=== PATIENT | female | born 1960 | race Caucasian/White ===

== ENCOUNTER 2018-06-06 10:46 | Outpatient (CLI) | payer MEDICARE, MEDICAID, SELFPAY ==
--- NOTE | 2018-06-06 06:00 | DI.REPORT_ITS ---
SYMPTOM/DIAGNOSIS: LUMBAR SPONDYLOSIS C-ARM FLUOROSCOPY: 06/06 Fluoroscopy Time: 21.4sec,11.83mgy C-arm fluoroscopy was utilized by Dr. Mattson. Please see Dr. Mattson's procedure note. Hard copies show epidural injection at what appears to be the L5-S1 level.
[2018-06-06 11:09] VITALS: BP 111/72; PULSE 86; RESP 16; TEMP 36.6; O2SAT 96
[2018-06-06 12:08] VITALS: BP 95/79; PULSE 82; RESP 17; O2SAT 99
[2018-06-06] MEDS: Omnipaque 240 MG/ML 50 ML BTL IJ (12:08)
[2018-06-06] MEDS: methylPREDNISolone ACETATE 40 MG/ML VIAL IJ (12:08)
--- NOTE | 2018-06-06 12:18 | PDOC.PAIN ---
Pain Clinic Procedure Note Patient Problems: Current Active Problems Problem Status Onset Lumbar radiculitis Chronic EPIDURAL STEROID WITH CATHETER INJECTION PROCEDURE NOTE COMMENTS: Patient had previous epidural steroid injection with only transient relief. She has severe stenosis at L4-5 with spondylolisthesis. PAPI SCHILLING has been referred to the [facility] for lumbar epidural steroid injection. Patient was greeted by the nurse who verified patients name and . Patient was then taken to the fluoroscopy suite. Patient was interviewed and the medical record reviewed. There were no medical, pharmacologic, radiographic, or other structural contraindications to attempting fluoroscopically guided lumbar epidural steroid injection. Risks and expected side effects as well as potential benefits of the procedure were reviewed and voiced concerns addressed. The patient consent form was signed and witnessed. Standard time-out procedure was performed. Patient was placed in the prone position on the fluoroscopy table and automated blood pressure cuff and pulse oximeter applied. The skin entry point for entering/approaching the epidural space by a {L5-S1} and marked. Following thorough chlorhexadine preparation of the skin and draping and 1% lidocaine infiltration of the skin entry point and subcutaneous tissues, a 5 inch 17 gauge Touhy needle was placed under fluoroscopic guidance and with loss of resistance technique into the epidural space. Needle tip placement and depth were aided and confirmed by fluoroscopy. There was no paresthesia or return of blood or CSF through the needle. An Arrow cath was thread to the {left and cephalad} and 1 cc's of Omnipaque 240 was injected with clear epidural spread confirmed with fluoroscopy. 80mg depomedrol was injected. There was not any unusual discomfort expressed. Vital signs were stable throughout the procedure and were as recorded in nursing records. Follow up plans and appointments were discussed.Post procedure instruction was given as documented in nursing records and having met discharge criteria and was discharged from the [facility]. COMMENTS: Follow-up as needed. Would only repeat if she has long-lasting relief. I have made a referral for her [place] [facility] [place] well as get flexion and extension x-rays at that time if she is not improving.
--- NOTE | 2018-06-06 12:22 | PDOC.PAIN_ITS ---
Pain Clinic Procedure Note Patient Problems: Current Active Problems Problem Status Onset Lumbar radiculitis Chronic EPIDURAL STEROID WITH CATHETER INJECTION PROCEDURE NOTE COMMENTS: Patient had previous epidural steroid injection with only transient relief. She has severe stenosis at L4-5 with spondylolisthesis. PAPI SCHILLING has been referred to the [facility] for lumbar epidural steroid injection. Patient was greeted by the nurse who verified patients name and . Patient was then taken to the fluoroscopy suite. Patient was interviewed and the medical record reviewed. There were no medical , pharmacologic, radiographic, or other structural contraindications to attempting fluoroscopically guided lumbar epidural steroid injection. Risks and expected side effects as well as potential benefits of the procedure were reviewed and voiced concerns addressed. The patient consent form was signed and witnessed. Standard time-out procedure was performed. Patient was placed in the prone position on the fluoroscopy table and automated blood pressure cuff and pulse oximeter applied. The skin entry point for entering/approaching the epidural space by a {L5-S1} and marked. Following thorough chlorhexadine preparation of the skin and draping and 1% lidocaine infiltration of the skin entry point and subcutaneous tissues, a 5 inch 17 gauge Touhy needle was placed under fluoroscopic guidance and with loss of resistance technique into the epidural space. Needle tip placement and depth were aided and confirmed by fluoroscopy. There was no paresthesia or return of blood or CSF through the needle. An Arrow cath was thread to the {left and cephalad} and 1 cc's of Omnipaque 240 was injected with clear epidural spread confirmed with fluoroscopy. 80mg depomedrol was injected. There was not any unusual discomfort expressed. Vital signs were stable throughout the procedure and were as recorded in nursing records. Follow up plans and appointments were discussed.Post procedure instruction was given as documented in nursing records and having met discharge criteria and was discharged from the [facility]. COMMENTS: Follow-up as needed. Would only repeat if she has long-lasting relief. I have made a referral for her to see Dr. Rowan at [facility] [place] as well as get flexion and extension x-rays at that time if she is not improving.
== END 2018-06-06 10:47 ==
PROVIDERS: PCP Family Medicine; Visit Provider Anesthesiology Pain Medicine
DX: M54.16 Radiculopathy, lumbar region (principal); G89.29 Other chronic pain
CPT/HCPCS: 62323; 72100; J1030; Q9967

== ENCOUNTER 2018-08-28 13:08 | Outpatient (CLI) | payer MEDICARE, MEDICAID, SELFPAY ==
--- NOTE | 2018-08-28 06:00 | DI.RAD_ITS ---
SYMPTOM/DIAGNOSIS: LUMBAR RADICULOPATHY C-ARM: Fluoroscopy Time: 24.6 secomds/11.14mGy Fluoroscopy was utilized by Dr. Mattson during the performance of a lumbar epidural steroid injection. Please refer to the procedure report for complete details.
[2018-08-28 13:16] VITALS: BP 132/78; PULSE 88; RESP 20; TEMP 35.7; O2SAT 97
--- NOTE | 2018-08-28 13:58 | PDOC.PAIN_ITS ---
Pain Clinic Procedure Note Current Active Problems Problem Status Onset Lumbar radiculitis Chronic EPIDURAL STEROID WITH CATHETER INJECTION PROCEDURE NOTE COMMENTS: The patient has severe spinal stenosis at 04?5 is a class of a grade 2 spondylolisthesis. He has had 2 epidural steroid injection given her relief but only for a couple of months. She is seeing Dr. Stephenson at [facility] will her surgery which would involve fusion. She would like to hold off on that if possible. PAPI SCHILLING has been referred to the [facility] for lumbar epidural steroid injection. Patient was greeted by the nurse who verified patients name and . Patient was then taken to the fluoroscopy suite. Patient was interviewed and the medical record reviewed. There were no medical , pharmacologic, radiographic, or other structural contraindications to attempting fluoroscopically guided lumbar epidural steroid injection. Risks and expected side effects as well as potential benefits of the procedure were reviewed and voiced concerns addressed. The patient consent form was signed and witnessed. Standard time-out procedure was performed. Patient was placed in the prone position on the fluoroscopy table and automated blood pressure cuff and pulse oximeter applied. The skin entry point for entering/approaching the epidural space by a {L5-S1} and marked. Following thorough chlorhexadine preparation of the skin and draping and 1% lidocaine infiltration of the skin entry point and subcutaneous tissues, a 5 inch 17 gauge Touhy needle was placed under fluoroscopic guidance and with loss of resistance technique into the epidural space. Needle tip placement and depth were aided and confirmed by fluoroscopy. There was no paresthesia or return of blood or CSF through the needle. An Arrow cath was thread {cephalad} slightly towards L4 and 1 cc's of Omnipaque 240 was injected with clear epidural spread confirmed with fluoroscopy. 80mg depomedrol was injected. There was not any unusual discomfort expressed. Vital signs were stable throughout the procedure and were as recorded in nursing records. Follow up plans and appointments were discussed.Post procedure instruction was given as documented in nursing records and having met discharge criteria and was discharged from the [facility]. COMMENTS: Follow-up as needed. If she does not get long-term suggested that she return to Dr. Stephenson to consider surgery or would consider lumbar medial branch blocks and radiofrequency ablation.
[2018-08-28 14:06] VITALS: BP 126/80; PULSE 87; RESP 19; O2SAT 99
[2018-08-28] MEDS: methylPREDNISolone ACETATE 40 MG/ML VIAL IJ (14:08)
[2018-08-28] MEDS: Omnipaque 240 MG/ML 50 ML BTL IJ (14:08)
== END 2018-08-28 13:28 ==
PROVIDERS: PCP Family Medicine; Visit Provider Anesthesiology Pain Medicine
DX: M54.16 Radiculopathy, lumbar region (principal); G89.29 Other chronic pain
CPT/HCPCS: 62323; 72100; J1030; Q9967

== ENCOUNTER 2018-10-01 15:01 | Outpatient (CLI) | payer MEDICARE, MEDICAID, SELFPAY ==
[2018-10-01 16:43] LABS: TSH (W/Ref FT4) 0.19 uIU/mL (0.358-3.74)
[2018-10-01 17:52] LABS: FREE T4 1.66 ng/dL (0.76-1.46)
== END 2018-10-01 15:21 ==
PROVIDERS: PCP Family Medicine; Visit Provider Family Medicine
DX: I10 Essential (primary) hypertension (principal)
CPT/HCPCS: 36415; 83036; 84439; 84443

== ENCOUNTER 2018-11-29 15:10 | Outpatient (CLI) | payer MEDICARE, MEDICAID, SELFPAY ==
[2018-11-29 16:14] LABS: Bilirubin Negative (Negative); Blood Negative (Negative); Clarity Sl Cloudy; Glucose Negative (Negative); Ketones Trace mg/dL (Negative); Leukocyte Esterase Small (Negative); Nitrite Positive (Negative); Specific Gravity >= 1.030 (1.005-1.025); Urobilinogen 0.2 EU/dL (Up TO 0.2)
[2018-11-29 16:15] LABS: Abs Immature Grans 0.02 k/cumm (0.0-0.09); Absolute Basophil Count 0.03 k/cumm (0.0-0.2); Absolute Eosinophil Count 0.07 k/cumm (0.0-0.7); Basophils % 0.3; Eosinophils % 0.6; HCT 41.6 % (36.0-46.0); HGB 14.3 g/dL (12.0-15.5); Immature Grans % 0.2; Mean Corp. HGB Concentration 34.4 g/dL (32.0-36.0); Mean Corpuscular Hemoglobin 31.6 pg (27.0-33.0); Mean Corpuscular Volume 91.8 fL (80-95); Mean Platelet Volume 8.3 fL (8.0-11.0); Neutrophils % 73.9; Platelet Count 280 x1000/uL (130-400); RBC 4.53 m/cumm (4.00-5.20); RBC Distribution Width 12.5 % (11.7-14.6); White Blood Cell Count 11.56 k/cumm (4.4-10.8)
[2018-11-29 16:21] LABS: Absolute Lymphocyte Count 1.97 k/cumm (1.2-3.4); Absolute Monocyte Count 0.92 k/cumm (0.11-0.7); Absolute Neutrophil Count 8.54 k/cumm (1.2-6.7)
[2018-11-29 16:26] LABS: Bacteria Many HPF (Negative); C & S Indicated? Yes; Casts Negative LPF (Negative); Crystals Negative HPF (Negative); Epithelial Cells Few HPF (Negative); Mucus Negative (Negative); RBC Negative (0-2); WBC 20-50 HPF (0-5)
[2018-11-29 17:10] LABS: ALT 29 U/L (12-78); AST 23 U/L (15-37); Albumin 3.6 g/dL (3.4-5.0); Alkaline Phosphatase 94 U/L (46-116); Anion Gap 9.1 mmol/L (3-11); BUN 24 mg/dL (7-18); Bilirubin, Total 0.3 mg/dL (0.2-1.0); CO2 27.9 mmol/L (21.0-32.0); Calcium 9.5 mg/dL (8.5-10.1); Chloride 103 mmol/L (98-107); Glucose 111 mg/dL (70-100); Magnesium 1.6 mg/dL (1.8-2.4); Potassium 3.9 mmol/L (3.5-5.1); Sodium 140 mmol/L (136-145); TSH (W/Ref FT4) 0.06 uIU/mL (0.358-3.74); Total Protein 7.2 g/dL (6.4-8.2)
[2018-11-29 18:18] LABS: FREE T4 1.76 ng/dL (0.76-1.46)
== END 2018-11-29 15:30 ==
PROVIDERS: PCP Family Medicine; Visit Provider Nurse Practitioner Psychiatric/Mental Health
DX: F32.1 Major depressive disorder, single episode, moderate (principal); Z79.899 Other long term (current) drug therapy
CPT/HCPCS: 36415; 80053; 87077; 81003; 81015; 83735; 84439; 84443; 85025; 87086; 87186

== ENCOUNTER 2018-12-18 12:49 | Outpatient (CLI) | payer MEDICARE, MEDICAID, SELFPAY ==
--- NOTE | 2018-12-18 06:00 | DI.RAD_ITS ---
SYMPTOMS/DIAGNOSIS: LUMBAR SPONDYLOSIS, LUMBAR MEDIAL BRANCH BLOCK PAIN CLINIC: Fluoroscopy Time: 49.6sec Fluoroscopy was utilized by Dr. Hall during the performance of a lumbar medial branch block. Please refer to the procedure report for complete details.
[2018-12-18 13:07] VITALS: BP 115/66; PULSE 77; RESP 22; TEMP 36.6; O2SAT 99
[2018-12-18 13:44] VITALS: BP 133/75; PULSE 66; RESP 16; O2SAT 98
--- NOTE | 2018-12-18 13:45 | PDOC.PAIN ---
Pain Clinic Procedure Note Current Active Problems Problem Status Onset Lumbosacral spondylosis without myelopathy Acute Lumbar/Sacral Medial Branch Blocks PAPI SCHILLING has been referred to the [facility] for lumbar/sacral medial branch blocks. COMMENTS: She was seen in our clinic on 11/29/18 Patient was interviewed and the medical record reviewed. There were no medical, pharmacologic, radiographic or other structural contraindications to attempting fluoroscopically guided local anesthetic lumbar/sacral medial branch blocks. Risks and expected side effects as well as potential benefit of the procedure were reviewed and voiced concerns addressed. The printed consent form was signed and witnessed. Standard time-out procedure was performed. Patient was placed in the prone position on the fluoroscopy table and automated blood pressure cuff and pulse oximeter applied. The skin entry points for approaching the anatomic target points of the segmental medial branches of bilateral L3-L5DR were identified with anfluoroscopy and marked. Following thorough Chlorhexadine preparation of the skin and draping a a 25 gauge 3.5 spinal needle was placed under fluoroscopic guidance down on to the target point for each respective segmental medial branch.Position was confirmed in A/P, oblique and lateral views with 0.25ml of omnipaque 240. At this point 0.5 cc of 0.5% Bupivacaine was injected to each segmental nerve. Vital signs were stable throughout the procedure and were as recorded in the docflowsheet by the nursing staff. Follow up plans and appointments were discussed and was instructed to keep careful note of how the usual pain was modified by these injections. Specifically was asked to keep a pain diary for the next 24 hours using a numeric pain scale of 0-10 and report these results at the follow-up visit. Post procedure instruction was given as documented in the nursing documentation and having met discharge criteria. Patient was discharged from the [facility]. Based on the medial branches blocked today, if the patient has adequate relief and we are able to proceed to radiofrequency ablation, the treatment should result in the denervation of the bilateral L4-L5 and L5-S1 FACET JOINTS}. We would expect to denervate a total of 4 facets during the radiofrequency ablation. COMMENTS: She will call back with her 1-4 hour post-procedure pain scores for her low back. CC: Hemanth Walton DO
[2018-12-18] MEDS: Omnipaque 240 MG/ML 50 ML BTL IJ (13:59)
[2018-12-18] MEDS: Bupivacaine 0.5% Pres-Free 30 ML VIAL IJ (14:00)
== END 2018-12-18 13:09 ==
PROVIDERS: PCP Family Medicine; Visit Provider Preventive Medicine Occupational Medicine
DX: M47.817 Spondylosis without myelopathy or radiculopathy, lumbosacral region (principal)
CPT/HCPCS: 64493; 64494; 72100; Q9967

== ENCOUNTER 2018-12-31 14:47 | Outpatient (REF) | payer MEDICARE, MEDICAID, SELFPAY ==
[2018-12-31 19:49] LABS: TSH (W/Ref FT4) 0.87 uIU/mL (0.358-3.74)
== END 2018-12-31 15:07 ==
LOC: LBN 14:47
PROVIDERS: PCP Family Medicine; Visit Provider Family Medicine
DX: E03.9 Hypothyroidism, unspecified (principal)
CPT/HCPCS: 84443

== ENCOUNTER 2019-01-22 15:22 | Observation (INO) | payer MEDICARE, MEDICAID, SELFPAY ==
[2019-01-22] MEDS: LORazepam 1 MG TAB PO ×2 (15:47→22:05)
[2019-01-22 15:51] LABS: Bilirubin Negative (Negative); Blood Negative (Negative); Clarity Cloudy; Glucose Negative (Negative); Ketones Negative (Negative); Leukocyte Esterase Trace (Negative); Nitrite Positive (Negative); Urobilinogen 0.2 EU/dL (Up TO 0.2)
--- NOTE | 2019-01-22 15:51 | ED.GENADUL_ITS ---
Discharge Plan Disposition Patient Disposition: [facility] IN[facility] Condition: Stable Discharge Details Chief Complaint: PsychEval Clinical Impression: Acute UTI, Anxiety, Feeling suicidal Primary Care Provider: Hemanth Walton ED Provider: Aba Qiu Home Meds and New Rx's Prescriptions: New cephalexin [Keflex] 500 mg capsule 500 mg PO BID Qty: 14 RF: 0 No Action albuterol sulfate [Ventolin HFA] 90 mcg/actuation HFA aerosol inhaler 1 puff IH Q6H PRNRF: 0 diaper,brief,adult,disposable misc .ROUTE .MEDSUPPLY Qty: 32 RF: 12 lisinopril 20 mg tablet 20 mg PO DAILY Qty: 90 RF: 3 cyclobenzaprine 10 MG tablet 10 mg PO BID PRN30 Days Qty: 60 RF: 3 multivitamin [Daily Value] 1 EACH tablet 1 ea PO DAILY RF: 0 coenzyme Q10 200 MG capsule 200 mg PO DAILY RF: 0 montelukast [Singulair] 10 MG tablet 10 mg PO DAILY 90 Days Qty: 90 RF: 3 Blood Glucose Test 1 EACH strip 1 ea Miscellaneous BID 30 Days Qty: 1 RF: 11 blood-glucose meter [Blood Glucose Monitoring] 1 EACH kit 1 ea Miscellaneous BID Qty: 1 RF: 0 lancets 1 EACH misc 1 ea Miscellaneous BID 50 Days Qty: 100 RF: 12 celecoxib 200 mg capsule 200 mg PO DAILY 30 Days Qty: 30 RF: 3 aspirin [Aspir-Low] 81 mg tablet,delayed release (DR/EC) 81 mg PO DAILY 90 Days Qty: 90 RF: 3 omega-3 fatty acids-fish oil 300-1,000 mg capsule 1 cap PO DAILY Qty: 90 RF: 3 levothyroxine [Synthroid] 150 mcg tablet 150 mcg PO DAILY Qty: 90 RF: 3 metformin 500 mg tablet extended release 24 hr 500 mg PO DAILY@1700 90 Days Qty: 90 RF: 6 acetaminophen [Tylenol Extra Strength] 500 mg tablet 500 mg PO Q6H PRN MDD 2000 mg 30 Days Qty: 90 RF: 6 clonazepam [Klonopin] 1 mg Tablet 1 mg PO HS RF: 0 buspirone 30 mg Tablet 30 mg PO BID RF: 0 Viibryd 10 mg Tablet 10 mg PO DAILY RF: 0 Discharge Instructions Instructions: Urinary Tract Infection in Women (ED), Anxiety (ED) Additional Instructions: Please take the antibiotic as directed. Please follow-up immediately with your mental health superintendent container terminal is on an outpatient basis. If you notice any worsening of your symptoms, or any new symptoms such as vomiting, diarrhea, fever, chills, shortness of breath, chest pain, numbness, weakness, or fainting , please return immediately to the emergency department for reevaluation. Please follow up with your primary care provider as soon as possible for reassessment and reevaluation. As always, it was a pleasure participating in your medical care today. Referrals: Hemanth Walton DO [Primary Care Provider] - Medical Decision Making This is a 58-year-old female with a past medical history of anxiety, personality disorder, thyroid disease, diabetes, who presents today for evaluation of anxiety for the last 2 weeks. She feels that her anxiety has been so bad that she has thought about wanting to and end her life. She does not have a specific plan, but does feel notably anxious and states over 4 different ways that she could kill herself. She denies any auditory visual hallucinations. Exam demonstrates no focal abnormalities. We will recruit the assistance of [facility], get observer, perform laboratory workup, as well as a cardiac workup to rule out any acute cardiac process. 6:03 PM Patient's laboratory workup is benign, the patient is medically cleared. [facility] is currently evaluating the patient. She does have evidence of mild UTI but I do not think that that is the cause of her symptomatology. Patient was given Levaquin for her urinary tract infection. 7:16 PM [facility] still believes that the patient does need to be admitted to a mental facility secondary to her anxiety, pressured speech, and multiple suicidal plans. We did contact [facility] again, they state that there are no beds available that he will not be at least until tomorrow at the earliest that she would be admitted. We will admit the patient to the floor for the time being. I discussed the case with Dr. Jolly, he agrees with the assessment and plan. I have extensively reviewed the treatment plan with the patient. I have addressed all patient concerns at this time. I have also discussed the plan with the admitting physician and they agree with the current assessment and plan and have agreed to assume responsibility for the patient. All parties demonstrate verbal understanding and agreement with our assessment and plan at this time. EKG 15: 57 Rate 81, intervals normal, sinus rhythm, no significant ST elevations or depressions, no Q waves, no T wave inversions. COMPARISON: No relevant prior studies available. FINDINGS: Lungs: There is no lobar consolidation or overt CHF Pleural space: Unremarkable. No pleural effusion. No pneumothorax. Heart/Mediastinum: Unremarkable. No cardiomegaly. Bones/joints: Unremarkable. IMPRESSION: No acute findings Dictated and Authenticated by: Liz Banuelos MD. HPI General Date/Time Provider Initiated Documentation: 01/22/19 15:24 . HPI Narrative: This is a 58-year-old female with a past medical history of anxiety, personality disorder, depression, obstructive sleep apnea, thyroid disease hypertension, who presents today for evaluation of an anxiety attack. The patient states that over the last 2 weeks she has become notably more anxious, she feels that she is so anxious that she thinks about dying however at the same time she also says that she does not have a specific plan but at the same time she also states that , to myself, she went to myself, take her 10 of pills, or do other things to kill myself.. Patient does admit to mild shortness of breath but denies any chest pain, arm pain neck pain or shoulder pain. She denies a history of cardiac disease. He does have a history of thyroid disease and takes levothyroxine. She denies any other complaints or other modifying factors. She denies any auditory or visual hallucinations. Related Data Home Medications Medication Instructions Recorded Confirmed cyclobenzaprine 10 mg PO BID PRN 30 Days #60 01/08/18 01/22/19 tab-cap multivitamin [Daily Value] 1 ea PO DAILY 02/14/18 01/22/19 coenzyme Q10 200 mg PO DAILY cap 03/05/18 01/22/19 montelukast [Singulair] 10 mg PO DAILY 90 Days #90 tab-cap 03/05/18 01/22/19 blood sugar diagnostic [Blood #1 box 03/29/18 01/22/19 Glucose Test Strip] blood-glucose meter [Blood Glucose #1 kit 03/29/18 01/22/19 Monitoring] lancets #100 ea 03/29/18 01/22/19 albuterol sulfate HFA 90 1 puff IH Q6H PRN 07/02/18 01/22/19 mcg/actuation aerosol inhaler diaper,brief,adult,disposable #32 each 10/01/18 01/22/19 lisinopril 20 mg tablet 20 mg PO DAILY #90 tab-cap 10/01/18 01/22/19 celecoxib 200 mg capsule 200 mg PO DAILY 30 Days #30 tab-cap 10/30/18 01/22/19 aspirin 81 mg tablet,delayed 81 mg PO DAILY 90 Days #90 tab-cap 11/15/18 release omega-3 fatty acids-fish oil 300 1 cap PO DAILY #90 cap 11/15/18 01/22/19 mg-1,000 mg capsule levothyroxine 150 mcg tablet 150 mcg PO DAILY #90 tab 12/06/18 01/22/19 metformin ER 500 mg 500 mg PO DAILY@1700 90 Days #90 12/17/18 01/22/19 tablet,extended release 24 hr tabcr acetaminophen 500 mg tablet 500 mg PO Q6H PRN 30 Days #90 tab 12/27/18 01/22/19 MDD 2000 mg buspirone 30 mg PO BID 01/15/19 01/22/19 clonazepam [Klonopin] 1 mg PO HS 01/15/19 01/22/19 vilazodone [Viibryd] 10 mg PO DAILY 01/15/19 01/22/19 cephalexin [Keflex] 500 mg PO BID #14 cap 01/22/19 Previous Rx's Medication Instructions Recorded montelukast [Singulair] 10 mg PO DAILY 90 Days #90 tab-cap 03/05/18 blood sugar diagnostic [Blood #1 box 03/29/18 Glucose Test Strip] blood-glucose meter [Blood Glucose #1 kit 03/29/18 Monitoring] lancets #100 ea 03/29/18 diaper,brief,adult,disposable #32 each 10/01/18 lisinopril 20 mg tablet 20 mg PO DAILY #90 tab-cap 10/01/18 celecoxib 200 mg capsule 200 mg PO DAILY 30 Days #30 tab-cap 10/30/18 aspirin 81 mg tablet,delayed 81 mg PO DAILY 90 Days #90 tab-cap 11/15/18 release omega-3 fatty acids-fish oil 300 1 cap PO DAILY #90 cap 11/15/18 mg-1,000 mg capsule levothyroxine 150 mcg tablet 150 mcg PO DAILY #90 tab 12/06/18 metformin ER 500 mg 500 mg PO DAILY@1700 90 Days #90 12/17/18 tablet,extended release 24 hr tabcr acetaminophen 500 mg tablet 500 mg PO Q6H PRN 30 Days #90 tab 12/27/18 MDD 2000 mg cephalexin [Keflex] 500 mg PO BID #14 cap 01/22/19 Allergies Allergy/AdvReac Type Severity Reaction Status Date / Time No Known Allergies Allergy Verified 01/22/19 15:33 Review of Systems Review of Systems All systems reviewed & are unremarkable except as noted in HPI and below PFSH Medical History Lumbar radiculitis (Chronic) Active asthma Anxiety Arthritis Blindness, right eye, normal vision left eye Depression Diabetes mellitus HTN (hypertension) Hypothyroid Multiple personality disorder Obstructive sleep apnea Surgical History Cholecystectomy Tonsillectomy and adenoidectomy eye surgery Social History Smoking/Tobacco Use Status: Never Alcohol Intake: never Details: monthly or less Drug use: Never Substance use type: does not use Do you feel safe at home: No Do you feel safe in your relationship?: Yes Additional Social history: I feel like I'm going to hurt myself Exam Narrative Exam Narrative: 1.Const: Well-nourished, Well-developed, appearing stated age 2.Eyes: PERRL, no conjunctival injection, and symmetrical lids. 3.ENT: Atraumatic external nose and ears. Moist MM. Neck: Symmetric, trachea midline, No thyromegaly. 4.CVS: +S1/S2, No murmurs or gallops. Peripheral pulses 2+ and equal in all extremities. Brisk capillary refill in all extremities. 5.RESP: Unlabored respiratory effort. Clear to auscultation bilaterally. No wheezes rales or rhonchi 6.GI: Soft, Nontender/Nondistended, No hepatosplenomegaly. No guarding or rebound. 7.MSK: Normocephalic/Atraumatic, Extremities w/o deformity or ttp No cyanosis or clubbing, Normal movement of all extremities 8.Skin: Warm, Dry. No rashes or lesions. 9.Neuro: director of strategic programs II-XII grossly intact. Sensation grossly intact, no focal neurologic deficits. 10.Psych: (AAO) x3, notable pressured speech, flight of ideas, and questionable signs of stewart.
[2019-01-22 15:57] LABS: HCO3 (Venous) 29 mmol/L (22-28); O2 Sat (Venous) 65 % (70-80); TCO2 (Venous) 26 mmol/L (22-29); pCO2 (Venous) 45 mm/Hg (34-47); pH (Venous) 7.43 (7.32-7.43); pO2 (Venous) 32 mm/Hg (28-44)
[2019-01-22 15:59] LABS: Abs Immature Grans 0.02 k/cumm (0.0-0.09); Absolute Basophil Count 0.06 k/cumm (0.0-0.2); Absolute Eosinophil Count 0.18 k/cumm (0.0-0.7); Absolute Lymphocyte Count 2.14 k/cumm (1.2-3.4); Absolute Monocyte Count 0.72 k/cumm (0.11-0.7); Absolute Neutrophil Count 7.13 k/cumm (1.2-6.7); Basophils % 0.6; Eosinophils % 1.8; HCT 45.1 % (36.0-46.0); HGB 15.1 g/dL (12.0-15.5); Immature Grans % 0.2; Lymphocytes % 20.9; Mean Corp. HGB Concentration 33.5 g/dL (32.0-36.0); Mean Corpuscular Hemoglobin 31.1 pg (27.0-33.0); Mean Platelet Volume 8.2 fL (8.0-11.0); Neutrophils % 69.5; Platelet Count 291 x1000/uL (130-400); RBC 4.85 m/cumm (4.00-5.20); RBC Distribution Width 13.6 % (11.7-14.6); White Blood Cell Count 10.25 k/cumm (4.4-10.8)
[2019-01-22 16:00] VITALS: BP 142/76; PULSE 84; RESP 20; TEMP 36.9; O2SAT 97
[2019-01-22 16:04] LABS: *AMPHETAMINES SCREEN URINE Negative (Negative); *BARBITURATES SCREEN URINE Negative (Negative); *BENZODIAZEPINES SCREEN URINE Negative (Negative); Cannabinoids THC Negative (Negative); Cocaine Screen,Urine Negative (Negative); METHADONE URINE SCREEN Negative (Negative); OPIATES URINE SCREEN Negative (Negative); Tricyclic Antidepressants Negative (Negative)
--- NOTE | 2019-01-22 16:15 | DI.RAD_ITS ---
SYMPTOM/DIAGNOSIS: SOB PORTABLE AP CHEST: The lungs are well expanded and free of infiltrate. The cardiovascular structures are intact. SUMMARY: No evidence of acute cardiopulmonary disease.
[2019-01-22 16:24] LABS: ALT 32 U/L (12-78); AST 23 U/L (15-37); Albumin 3.8 g/dL (3.4-5.0); Alkaline Phosphatase 98 U/L (46-116); Anion Gap 10.9 mmol/L (3-11); BUN 23 mg/dL (7-18); Bilirubin, Total 0.3 mg/dL (0.2-1.0); CO2 27.1 mmol/L (21.0-32.0); CREATININE 1.01 mg/dL (0.55-1.02); Calcium 9.6 mg/dL (8.5-10.1); Chloride 101 mmol/L (98-107); Glucose 167 mg/dL (70-100); Potassium 4.2 mmol/L (3.5-5.1); Sodium 139 mmol/L (136-145); Total Protein 7.7 g/dL (6.4-8.2); Troponin I < 0.02 ng/mL (0.00-0.06)
[2019-01-22 16:25] LABS: Bacteria Many HPF (Negative); C & S Indicated? Yes
[2019-01-22 16:35] LABS: ETHANOL BLOOD < 3.0 mg/dL (<3)
[2019-01-22 16:39] LABS: Salicylate < 2.8 mg/dL (2.8-20.0)
--- NOTE | 2019-01-22 16:39 | DI.VRAD_ITS ---
EXAM: XR Chest, 1 View EXAM DATE/TIME: 01/22/2019 4:25 PM CLINICAL HISTORY: 58 years old, female; Signs and symptoms; Shortness of breath TECHNIQUE: Imaging protocol: XR of the chest, 1 view. COMPARISON: No relevant prior studies available. FINDINGS: Lungs: There is no lobar consolidation or overt CHF Pleural space: Unremarkable. No pleural effusion. No pneumothorax. Heart/Mediastinum: Unremarkable. No cardiomegaly. Bones/joints: Unremarkable. IMPRESSION: No acute findings Dictated and Authenticated by: Liz Banuelos MD. Ordering:NITIN Troncoso MD
[2019-01-22 16:41] LABS: Acetaminophen < 2 ug/mL (10-30)
[2019-01-22] MEDS: levoFLOXacin 250 MG TAB PO (18:22)
--- NOTE | 2019-01-22 18:32 | PDOC.MHCN ---
Mental Health Crisis Note Presenting Issue How did you arrive at the ED and why did you come: Patient stated that she was brought to the ER today due having feelings of SI. Patient stated that she does not feel safe going home because she is alone and has no one and doesn't want to live, feels very anxious. Precipitating Factors Patient stated that she will walk out into traffic or take all of her medication or stab herself with something if she goes home. Patient stated that she just feels like something bad will happen because she cannot control her anxiety and her coping skills are not working anymore. Patient would like to have placement in a psych hospital to get control of her anxiety so her life is more stabalized. Disposition BEHAVIOR: anxious, cooperative EYE CONTACT: good MOOD: anxious, depressed AFFECT: flat APPETITE: Patient stated poor eating habits lately. SLEEP(trouble falling/staying asleep: Patient stated that she sleeps well through the night, takes medication to do so. Plan This worker spoke with Doctor Qiu about Patient staying at [facility] until a psych bed is identified. [facility] . This worker faxed down packet to the [facility] to be reviewed. Signature Clinician's Name/Title: Mani Montana
--- NOTE | 2019-01-22 19:01 | PDOC.MHCN_ITS ---
Mental Health Crisis Note Presenting Issue How did you arrive at the ED and why did you come: Patient stated that she was brought to the ER today due having feelings of SI. Patient stated that she does not feel safe going home because she is alone and has no one and doesn't want to live, feels very anxious. Precipitating Factors Patient stated that she will walk out into traffic or take all of her medication or stab herself with something if she goes home. Patient stated that she just feels like something bad will happen because she cannot control her anxiety and her coping skills are not working anymore. Patient would like to have placement in a psych hospital to get control of her anxiety so her life is more stabalized. Disposition BEHAVIOR: anxious, cooperative EYE CONTACT: good MOOD: anxious, depressed AFFECT: flat APPETITE: Patient stated poor eating habits lately. SLEEP(trouble falling/staying asleep: Patient stated that she sleeps well through the night, takes medication to do so. Plan This worker spoke with Doctor Qiu about Patient staying at [facility] until a psych bed is identified. [facility] This worker faxed down packet to the retreat to be reviewed. Signature Clinician's Name/Title: Mani Montana
--- NOTE | 2019-01-22 19:05 | PDOC.ERCMPRO ---
- If Service Date Differs Date of service: 01/22/19 Time of Service: 19:05 Care Management Progress Note Jes presents to [facility] this evening with suicidal thoughts. She reports that she does not have a plan, though has thought of stepping out into traffic, and taking pills. Jes reports that she feels alone with her thoughts at home, and this has been a struggle for her. Jes states that she has a brother in [place] and one in [place], she reports that her brother in [place] is her primary support, she has no children or other family. Jes receives supports through [facility] and her MARKETING OFFICER staffing manager is Jeniffer Serna. Jes also sees Joann Cardenas, and Yuliana Wilks through [facility], and states that they are supportive. Jes states to this physician underwriter that she used to have animals and her dog 1.5 years ago, whom she misses. She states that she does not want to be alone at this time. Jes will be admitted to the Med/Surg floor this evening while awaiting bed availability. VOLUNTARY FOR INPATIENT PSYCHIATRIC STABILIZATION. Patient is appropriate in all interactions since arriving at [facility]; Pt has demonstrated appropriate coping and communication skills, has articulated his or her needs and concerns and is fully engaged during staff interactions. Huddle Held. Those in attendance: Lakesha Garrison ([facility]), Sachi (MONUMENT MASON [place]), Mirta (RN), Gerda (BIB). Safety plan has been established with patient, and care team, to adhere to patient goals, identify restrictions based on behavioral status, address nutrition, and determine allowed personal belongings, tools for hygiene and personal care. Determine level of activity including ambulation, level of supervision, visitors, and determine privileges based on behaviors and level of engagement by pt. SAFETY PLAN: 1. Will remain on suicide precautions. In Paper Clothes 2. Will remain in room under direct supervision of one-on-one staff at all times provided by [facility]; WAN, TOM oil recovery unit operator. 3. May have paper cups, plates, finger foods as well as a metal spoon with which to eat meals. [facility] staff will be responsible for accounting of utensils after meals. 4. Follow [facility] Management of the Admitted Behavioral Health Patient policy. 5. Comfort bath system only. 6. May have cellphone. Charging Cord to be kept at nurses station. 7. Visitors- [facility] support personnel 8. Activities: Crayons and paper. TV if available (Jes reports that TV is helpful to her). 9. Bathroom privileges 10. Phone: May have cellphone in room with her to outreach to brother. Charging cord to be at nurses station. 11. Due to VOLUNTARY status, if patient wishes to leave [facility], the [facility] public health outreach worker must be contacted to re-evaluate patient prior to patient exiting the building. PLACEMENT- Per [facility] referral has been faxed to [place] awaiting decision Patient is currently voluntarily at [facility] and seeking inpatient admission when a bed becomes available. [facility] Frontline Sdv Pilot/Navigator/Dds Operator will continue seeking placement. Please contact the Medication Specialist Stone Setter Metal Optical Frames ([phone]) and [facility] Sdv Pilot/Navigator/Dds Operator ([phone]) for any needed changes in the Safety Plan. Safety plan has been provided to interdepartmental care team.
--- NOTE | 2019-01-22 19:15 | CMPROGNOTE_ITS ---
- If Service Date Differs Date of service: 01/22/19 Time of Service: 19:05 Care Management Progress Note Jes presents to [facility] this evening with suicidal thoughts. She reports that she does not have a plan, though has thought of stepping out into traffic, and taking pills. Jes reports that she feels alone with her thoughts at home, and this has been a struggle for her. Jes states that she has a brother in [place] and one in [place], she reports that her brother in [place] is her primary support, she has no children or other family. Jes receives supports through [facility] and her EARTHMOVING PLANT OPERATOR client integration manager is Jeniffer Serna. Jes also sees Joann Cardenas, and Yuliana Wilks through [facility], and states that they are supportive. Jes states to this telegraphic typewriter repairer that she used to have animals and her dog 1.5 years ago, whom she misses. She states that she does not want to be alone at this time. Jes will be admitted to the Med/Surg floor this evening while awaiting bed availability. VOLUNTARY FOR INPATIENT PSYCHIATRIC STABILIZATION. Patient is appropriate in all interactions since arriving at [facility]; Pt has demonstrated appropriate coping and communication skills, has articulated his or her needs and concerns and is fully engaged during staff interactions. Huddle Held. Those in attendance: Lakesha Garrison ([facility]), Sachi (LICENSED CLUB MANAGER [place]), Mirta (RN), Gerda (BIB). Safety plan has been established with patient, and care team, to adhere to patient goals, identify restrictions based on behavioral status, address nutrition, and determine allowed personal belongings, tools for hygiene and personal care. Determine level of activity including ambulation, level of supervision, visitors, and determine privileges based on behaviors and level of engagement by pt. SAFETY PLAN: 1. Will remain on suicide precautions. In Paper Clothes 2. Will remain in room under direct supervision of one-on-one staff at all times provided by [employer]; WAN, TOM vegetable vendor. 3. May have paper cups, plates, finger foods as well as a metal spoon with which to eat meals. [facility] staff will be responsible for accounting of utensils after meals. 4. Follow [facility] Management of the Admitted Behavioral Health Patient policy. 5. Comfort bath system only. 6. May have cellphone. Charging Cord to be kept at nurses station. 7. Visitors- [facility] support personnel 8. Activities: Crayons and paper. TV if available (Jes reports that TV is helpful to her). 9. Bathroom privileges 10. Phone: May have cellphone in room with her to outreach to brother. Charging cord to be at nurses station. 11. Due to VOLUNTARY status, if patient wishes to leave [facility], the [facility] gaming cage worker must be contacted to re-evaluate patient prior to patient exiting the building. PLACEMENT- Per [facility] referral has been faxed to [place] awaiting decision Patient is currently voluntarily at [facility] and seeking inpatient admission when a bed becomes available. [facility] Frontline Tower Foreman will continue seeking placement. Please contact the Qa Specialist Drum Builder ([phone]) and [facility] Tower Foreman ([phone]) for any needed changes in the Safety Plan. Safety plan has been provided to interdepartmental care team.
[2019-01-22 20:12] VITALS: BP 122/81; PULSE 86; RESP 18; TEMP 36.7; O2SAT 97
[2019-01-22 20:22] VITALS: BP 122/81; PULSE 86; RESP 18; TEMP 36.7; O2SAT 97
--- NOTE | 2019-01-22 20:22 | HPE_ITS ---
Date of service: 01/22/19 Time of Service: 20:13 Assessment and Plan (1) Anxiety: Current visit: Yes Status: Chronic Anxiety with subsequent suicidal ideation. I suspect that the imminent loss of her therapist is the primary factor here but, as mentioned in HPI, there may be also be a contribution of several medication changes. At any rate we will standby for transfer to psychiatric facility. Patient had good response to Ativan in the emergency room and will use this on a as needed basis for now History of Present Illness Chief Complaint: anxiety Narrative: Patient is a 58-year-old female with his tory of anxiety and personality disorder. She comes to the emergency room tonight with approximately 2 weeks of escalating anxiety, to the point where she is thinking about hurting herself. She was seen in the emergency room, medically cleared. She was seen by mental health and agreed to voluntary psychiatric admission. No beds available so she is admitted here pending definitive disposition.. She does relate several factors that may have a bearing on her anxiety, most notably that her longtime therapist is retiring and leaving the area and she does not have a new therapist lined up. In addition there have been some medication changes recently. She states that it a month ago some on known medication was discontinued and she was started on, I believe, of Viibryd a week or 2 ago. She also repeatedly talks about the of her dog, but this was a year and a half ago. Patient was given dose of Ativan in the emergency room with good effect. There was an incidental finding of pyuria in the emergency room. Patient does allow that she has had some urinary frequency and dysuria. She was given an oral dose of Levaquin. Review of Systems Review of Systems All systems reviewed & are unremarkable except as noted in HPI and below [facility] Medical History Lumbar radiculitis (Chronic) Active asthma Anxiety Arthritis Blindness, right eye, normal vision left eye Depression Diabetes mellitus HTN (hypertension) Hypothyroid Multiple personality disorder Obstructive sleep apnea Surgical History Cholecystectomy Tonsillectomy and adenoidectomy eye surgery Social History Smoking/Tobacco Use Status: Never Alcohol Intake: never Details: monthly or less Drug use: Never Substance use type: does not use Do you feel safe at home: No Do you feel safe in your relationship?: Yes Additional Social history: I feel like I'm going to hurt myself Meds Home Medications Medication Instructions Recorded Confirmed Type cyclobenzaprine 10 mg PO BID PRN 30 Days #60 01/08/18 01/22/19 History tab-cap multivitamin [Daily Value] 1 ea PO DAILY 02/14/18 01/22/19 History coenzyme Q10 200 mg PO DAILY cap 03/05/18 01/22/19 History montelukast [Singulair] 10 mg PO DAILY 90 Days #90 tab-cap 03/05/18 01/22/19 Rx blood sugar diagnostic [Blood #1 box 03/29/18 01/22/19 Rx Glucose Test Strip] blood-glucose meter [Blood Glucose #1 kit 03/29/18 01/22/19 Rx Monitoring] lancets #100 ea 03/29/18 01/22/19 Rx albuterol sulfate HFA 90 1 puff IH Q6H PRN 07/02/18 01/22/19 History mcg/actuation aerosol inhaler diaper,brief,adult,disposable #32 each 10/01/18 01/22/19 Rx lisinopril 20 mg tablet 20 mg PO DAILY #90 tab-cap 10/01/18 01/22/19 Rx celecoxib 200 mg capsule 200 mg PO DAILY 30 Days #30 tab-cap 10/30/18 01/22/19 Rx aspirin 81 mg tablet,delayed 81 mg PO DAILY 90 Days #90 tab-cap 11/15/18 01/22/19 Rx release omega-3 fatty acids-fish oil 300 1 cap PO DAILY #90 cap 11/15/18 01/22/19 Rx mg-1,000 mg capsule levothyroxine 150 mcg tablet 150 mcg PO DAILY #90 tab 12/06/18 01/22/19 Rx metformin ER 500 mg 500 mg PO DAILY@1700 90 Days #90 12/17/18 01/22/19 Rx tablet,extended release 24 hr tabcr acetaminophen 500 mg tablet 500 mg PO Q6H PRN 30 Days #90 tab 12/27/18 01/22/19 Rx MDD 2000 mg buspirone 30 mg PO BID 01/15/19 01/22/19 History clonazepam [Klonopin] 1 mg PO HS 01/15/19 01/22/19 History vilazodone [Viibryd] 10 mg PO DAILY 01/15/19 01/22/19 History cephalexin [Keflex] 500 mg PO BID #14 cap 01/22/19 Rx Allergies Allergy/AdvReac Type Severity Reaction Status Date / Time No Known Allergies Allergy Verified 01/22/19 15:33 Exam Narrative Exam Narrative: Blood pressure 142/76 pulse 84 respirations 20 temp 36.9. Patient is sitting on the side of the bed in no distress. HEENT shows no signs of head trauma. Neck is supple. Lungs clear. Heart regular rate and rhythm without murmurs rubs or gallops. Abdomen soft nontender. Pelvic and rectal exams are deferred. Extremities without edema. Neurological patient is alert and oriented, speech is perhaps slightly pressured but appropriate and lucid. Exam is nonfocal Results Labs : 01/22/19 15:53 01/22/19 15:53 Laboratory Results - last 24 hr 01/22/19 01/22/19 01/22/19 15:42 15:42 15:53 WBC RBC Hgb Hct MCV MCH MCHC RDW Plt Count MPV Immature Gran % Neutrophils % Lymphocytes % Monocytes % Eosinophils % Basophils % Absolute Neutrophils Absolute Lymphocytes Absolute Monocytes Absolute Eosinophils Absolute Basophils VBG pH VBG pCO2 VBG pO2 VBG HCO3 VBG Total CO2 VBG O2 Saturation VBG Base Excess Sodium 139 Potassium 4.2 Chloride 101 Carbon Dioxide 27.1 Anion Gap 10.9 BUN 23 H Creatinine 1.01 Estimated GFR/1.73 m2 56.30 Glucose 167 H Calcium 9.6 Total Bilirubin 0.3 AST 23 ALT 32 Alkaline Phosphatase 98 Troponin I < 0.02 Total Protein 7.7 Albumin 3.8 TSH 1.00 Urine Color Yellow Urine Clarity Cloudy Urine pH 7.0 Ur Specific [place] 1.020 Urine Protein Negative Urine Ketones Negative Urine Blood Negative Urine Nitrite Positive H Urine Bilirubin Negative Urine Urobilinogen 0.2 Ur Leukocyte Esterase Trace H Urine RBC Urine WBC 10-20 Ur Epithelial Cells Not Applicable Urine Crystals Not Applicable Urine Bacteria Many Urine Mucus Not Applicable Ur Culture Indicated? Yes Urine Glucose Negative Salicylates Urine Opiates Screen Negative Urine Methadone Screen Negative Acetaminophen Ur Barbiturates Screen Negative Ur Tricyclics Screen Negative Ur Amphetamines Screen Negative U Benzodiazepines Scrn Negative Urine Cocaine Screen Negative Ur THC Screen Negative Ethyl Alcohol < 3.0 01/22/19 01/22/19 01/22/19 15:53 15:53 15:53 WBC 10.25 RBC 4.85 Hgb 15.1 Hct 45.1 MCV 93.0 MCH 31.1 MCHC 33.5 RDW 13.6 Plt Count 291 MPV 8.2 Immature Gran % 0.2 Neutrophils % 69.5 Lymphocytes % 20.9 Monocytes % 7.0 Eosinophils % 1.8 Basophils % 0.6 Absolute Neutrophils 7.13 H Absolute Lymphocytes 2.14 Absolute Monocytes 0.72 H Absolute Eosinophils 0.18 Absolute Basophils 0.06 VBG pH 7.43 VBG pCO2 45 VBG pO2 32 VBG HCO3 29 H VBG Total CO2 26 VBG O2 Saturation 65 L VBG Base Excess 5.0 H Sodium Potassium Chloride Carbon Dioxide Anion Gap BUN Creatinine Estimated GFR/1.73 m2 Glucose Calcium Total Bilirubin AST ALT Alkaline Phosphatase Troponin I Total Protein Albumin TSH Urine Color Urine Clarity Urine pH Ur Specific [place] Urine Protein Urine Ketones Urine Blood Urine Nitrite Urine Bilirubin Urine Urobilinogen Ur Leukocyte Esterase Urine RBC Urine WBC Ur Epithelial Cells Urine Crystals Urine Bacteria Urine Mucus Ur Culture Indicated? Urine Glucose Salicylates < 2.8 L Urine Opiates Screen Urine Methadone Screen Acetaminophen < 2 L Ur Barbiturates Screen Ur Tricyclics Screen Ur Amphetamines Screen U Benzodiazepines Scrn Urine Cocaine Screen Ur THC Screen Ethyl Alcohol Last Vital Signs Temp 36.9 C 01/22/19 16:00 Pulse 84 01/22/19 16:00 Resp 20 01/22/19 16:00 BP 142/76 H 01/22/19 16:00 Pulse Ox 97 01/22/19 16:00
[2019-01-22] MEDS: busPIRone 15 MG TAB 30 MG PO (22:05)
[2019-01-23] MEDS: Levothyroxine 150 MCG TAB PO (05:57)
[2019-01-23 06:04] VITALS: BP 98/60; PULSE 64; RESP 18; TEMP 36; O2SAT 93
[2019-01-23] MEDS: Celecoxib 200 MG CAP PO (08:37)
[2019-01-23] MEDS: busPIRone 15 MG TAB 30 MG PO (08:37)
[2019-01-23] MEDS: Montelukast 10 MG TAB PO (08:38)
[2019-01-23] MEDS: Lisinopril 20 MG TAB PO (08:38)
[2019-01-23] MEDS: Omega-3 Fatty Acids 1000 MG CAP PO (08:38)
--- NOTE | 2019-01-23 08:47 | NUR.NOTE ---
Nursing Note: 0845: pt reporting that she is having a procedure at the pain clinic next week. RN calls to confirm appt., spoke with US Karissa, who reports pt is scheduled for procedure on January 29 at 1245. pt declines to take ASA this am related to the upcoming procedure.
[2019-01-23] MEDS: Amoxicillin 500/Clav. 125 TAB PO (10:37)
--- NOTE | 2019-01-23 11:49 | PDOC.CMIN ---
- If Service Date Differs Date of service: 01/23/19 Time of Service: 11:49 Care Management Initial Assess REASON FOR HOSPITALIZATION:: Anxiety, Suicidal Ideation PAST MEDICAL HISTORY/PAST SURGICAL HISTORY:: Lumbar radiculitis (Chronic). Active asthma. Anxiety. Arthritis. Blindness, right eye, normal vision left eye. Depression. Diabetes mellitus. HTN (hypertension). Hypothyroid. Multiple personality disorder. Obstructive sleep apnea. Cholecystectomy. Tonsillectomy and adenoidectomy. eye surgery PREVIOUS FUNCTIONAL STATUS/SOCIAL/FAMILY SUPPORTS:: Jes resides alone in [place]. She reports that she has siblings in [place] and [place], and that her brother in [place] is her primary support. Jes at baseline is independent, she does depend on PEDIATRICIAN MANAGING PARTNER for assistance in the community, and they are a support to her per her report. CURRENT FUNCTIONAL STATUS:: Currently Jes is lying in bed this morning, receptive to discussion. ADVANCE DIRECTIVES:: None on file Has patient been provided with information about the portal?: Yes Did the patient sign up for the portal?: No CODE STATUS:: Full Code INSURANCE COVERAGE / FINANCIAL ISSUES:: YOLANDA, BLAKE CURRENT HOME/COMMUNITY SERVICES/EQUIPMENT:: Currently Jes has services through [facility], her PEDIATRICIAN MANAGING PARTNER CM is Ramona, she has Sdaia Cardenas as a prescriber, and Shashank Wilks as a therapist. PRIMARY CARE PHYSICIAN:: Dr. Walton POTENTIAL DISCHARGE NEEDS:: Placement at Psychiatric facility PATIENT/FAMILY EDUCATION NEEDS:: Review DC instructions, any limitations, and ongoing DC planning discussion. Discuss 'Ask Me Three' ANTICIPATED BARRIERS TO DISCHARGE:: None identified at this time. TRANSPORTATION:: Via extract operator PLAN:: Jes will transfer to [facility] today. BIB has contacted [facility] for transportation, and SAIDA Kaplan, is aware of acceptance.
[2019-01-23 11:55] VITALS: BP 129/76; PULSE 80; RESP 16; TEMP 36.3; O2SAT 95
--- NOTE | 2019-01-23 12:07 | W.PM.DS.N ---
Date of service: 01/23/19 Time of Service: 12:10 DS: Diagnosis Discharge Diagnosis (1) Anxiety: Status: Chronic Discharge Plan Disposition Patient Disposition: [facility] Condition: Stable Discharge Details Reason For Visit: ANXIETY AND SUICIDAL Admit Date/Time: 01/22/19 19:18 Admit Provider: Lukasz Jolly Attending Provider: Lukasz Jolly Primary Care Provider: Hemanth Walton Hospital Course Hospital Course: Jes Bello is a 58 year old female with a past medical history significant for anxiety, depression, personality disorder, diabetes, obstructive sleep apnea, hypothyroidism, hypertension, and chronic back pain who presented to the emergency department last night on 01/22/2019 with reports of a 2-week history of increasing anxiety, to the point where she was thinking about harming herself. She was seen in the emergency department and medically cleared. She was found to have a urinary tract infection and antibiotics were initiated with Augmentin. Mental health was consulted, she agreed to a voluntary psychiatric admission. There were no beds available last night, so she was admitted to the [facility] pending transfer to psychiatric facility. She reported that her long-term therapist is retiring and she does not have a replacement therapist lined up. This is is contributing to her increased anxiety. She verbalizes that she has multiple stressors. She shared plans to harm herself with staff members. This morning, she reports feeling more safe now that she is in the hospital, she reports feeling better with more people around. She denies feeling like harming herself in this setting. She received PRN ativan for anxiety with good effect. She had 1:1 patient observation and suicide precautions while she was here at the hospital. Her behavior was appropriate. She is discharged to [facility] for appropriate psychaitric care. Her urine culture is growing pansensitive E-coli. She has medication interactions with fluroquinolones. She will complete a course of antibiotics for UTI. Home Meds and New Rx's Prescriptions: New lorazepam 1 mg Tablet 1 - 2 mg PO Q6H PRN PRNQty: 1 RF: 0 amoxicillin-pot clavulanate 500-125 mg Tablet 1 tab PO BID 3 Days Qty: 6 RF: 0 Continued albuterol sulfate [Ventolin HFA] 90 mcg/actuation HFA aerosol inhaler 1 puff IH Q6H PRNRF: 0 diaper,brief,adult,disposable misc .ROUTE .MEDSUPPLY Qty: 32 RF: 12 lisinopril 20 mg tablet 20 mg PO DAILY Qty: 90 RF: 3 cyclobenzaprine 10 MG tablet 10 mg PO BID PRN30 Days Qty: 60 RF: 3 multivitamin [Daily Value] 1 EACH tablet 1 ea PO DAILY RF: 0 coenzyme Q10 200 MG capsule 200 mg PO DAILY RF: 0 montelukast [Singulair] 10 MG tablet 10 mg PO DAILY 90 Days Qty: 90 RF: 3 Blood Glucose Test 1 EACH strip 1 ea Miscellaneous BID 30 Days Qty: 1 RF: 11 blood-glucose meter [Blood Glucose Monitoring] 1 EACH kit 1 ea Miscellaneous BID Qty: 1 RF: 0 lancets 1 EACH misc 1 ea Miscellaneous BID 50 Days Qty: 100 RF: 12 celecoxib 200 mg capsule 200 mg PO DAILY 30 Days Qty: 30 RF: 3 aspirin [Aspir-Low] 81 mg tablet,delayed release (DR/EC) 81 mg PO DAILY 90 Days Qty: 90 RF: 3 omega-3 fatty acids-fish oil 300-1,000 mg capsule 1 cap PO DAILY Qty: 90 RF: 3 levothyroxine [Synthroid] 150 mcg tablet 150 mcg PO DAILY Qty: 90 RF: 3 metformin 500 mg tablet extended release 24 hr 500 mg PO DAILY@1700 90 Days Qty: 90 RF: 6 acetaminophen [Tylenol Extra Strength] 500 mg tablet 500 mg PO Q6H PRN MDD 2000 mg 30 Days Qty: 90 RF: 6 clonazepam [Klonopin] 1 mg Tablet 1 mg PO HS RF: 0 buspirone 30 mg Tablet 30 mg PO BID RF: 0 Viibryd 10 mg Tablet 10 mg PO DAILY RF: 0 Discharge Instructions Instructions: Urinary Tract Infection in Women (ED), Anxiety (ED) Additional Instructions: Complete course of antibiotics for UTI. Stand Alone Forms: Nursing Discharge Form Referrals: Hemanth Walton DO [Primary Care Provider] - Activity:: Activity as Tolerated Equipment/Supplies:: No Equipment Needed Diet:: Carb Counting Discharge Orders Discharge Orders: Discharge Order (Routine); Ordered 01/23/19 Ordered By: Rosaura Bowen Exam Narrative Exam Narrative: General: 58-year-old female, appears anxious, pacing in room, constantly moving her hands. Alert and oriented x3, pleasant and cooperative. HEENT: Normocephalic, atraumatic, mucous membranes moist, extraocular movements intact. Neck: Supple, no JVD. Cardiovascular: Heart has regular rate and rhythm, no murmur appreciated. Respiratory: Respirations even and unlabored, lung sounds clear to auscultation throughout. Gastrointestinal: Normoactive bowel sounds throughout, abdomen soft, nontender on palpation, nondistended. Extremities: Well perfused, no clubbing, cyanosis or edema. Peripheral pulses palpable. DS: Data Vitals/I&O Vitals and I&O: Vital Signs Temperature 36.3 C L 01/23/19 11:55 Temperature Source Tympanic 01/23/19 11:55 Pulse 80 01/23/19 11:55 Pulse Rhythm Regular 01/23/19 05:52 Respiratory Rate 16 01/23/19 11:55 Respiratory Effort Non-Labored 01/23/19 05:52 Respiratory Depth Normal 01/23/19 05:52 Respiratory Pattern Normal 01/23/19 05:52 Blood Pressure 129/76 01/23/19 11:55 Blood Pressure Position Sitting 01/22/19 16:00 Pulse Oximetry 95 01/23/19 11:55 Oxygen Delivery Method Room Air 01/23/19 11:55 Oxygen Flow Rate 0 01/23/19 11:55 Pain Level 0 01/23/19 11:55 Intake & Output 01/22/19 01/23/19 01/23/19 23:59 11:59 23:59 Intake Total 600 / 600 Balance 600 / 600 Weight 92.3 kg Intake: Oral 600 / 600 Other: Urine Appearance Clear Stool Size Moderate Stool Characteristics Soft Completed studies during hospitalization [Text1]: 01/22/19: PORTABLE AP CHEST: The lungs are well expanded and free of infiltrate. The cardiovascular structures are intact. SUMMARY: No evidence of acute cardiopulmonary disease. Labs on day of discharge: Labs from last 24 hours 01/22/19 01/22/19 01/22/19 15:53 15:53 15:53 WBC 10.25 RBC 4.85 Hgb 15.1 Hct 45.1 MCV 93.0 MCH 31.1 MCHC 33.5 RDW 13.6 Plt Count 291 MPV 8.2 Immature Gran % 0.2 Neutrophils % 69.5 Lymphocytes % 20.9 Monocytes % 7.0 Eosinophils % 1.8 Basophils % 0.6 Absolute Neutrophils 7.13 H Absolute Lymphocytes 2.14 Absolute Monocytes 0.72 H Absolute Eosinophils 0.18 Absolute Basophils 0.06 VBG pH 7.43 VBG pCO2 45 VBG pO2 32 VBG HCO3 29 H VBG Total CO2 26 VBG O2 Saturation 65 L VBG Base Excess 5.0 H Sodium Potassium Chloride Carbon Dioxide Anion Gap BUN Creatinine Estimated GFR/1.73 m2 Glucose Calcium Total Bilirubin AST ALT Alkaline Phosphatase Troponin I Total Protein Albumin TSH Urine Color Urine Clarity Urine pH Ur Specific Neoga Urine Protein Urine Ketones Urine Blood Urine Nitrite Urine Bilirubin Urine Urobilinogen Ur Leukocyte Esterase Urine RBC Urine WBC Ur Epithelial Cells Urine Crystals Urine Bacteria Urine Mucus Ur Culture Indicated? Urine Glucose Salicylates < 2.8 L Urine Opiates Screen Urine Methadone Screen Acetaminophen < 2 L Ur Barbiturates Screen Ur Tricyclics Screen Ur Amphetamines Screen U Benzodiazepines Scrn Urine Cocaine Screen Ur THC Screen Ethyl Alcohol 01/22/19 01/22/19 01/22/19 15:53 15:42 15:42 WBC RBC Hgb Hct MCV MCH MCHC RDW Plt Count MPV Immature Gran % Neutrophils % Lymphocytes % Monocytes % Eosinophils % Basophils % Absolute Neutrophils Absolute Lymphocytes Absolute Monocytes Absolute Eosinophils Absolute Basophils VBG pH VBG pCO2 VBG pO2 VBG HCO3 VBG Total CO2 VBG O2 Saturation VBG Base Excess Sodium 139 Potassium 4.2 Chloride 101 Carbon Dioxide 27.1 Anion Gap 10.9 BUN 23 H Creatinine 1.01 Estimated GFR/1.73 m2 56.30 Glucose 167 H Calcium 9.6 Total Bilirubin 0.3 AST 23 ALT 32 Alkaline Phosphatase 98 Troponin I < 0.02 Total Protein 7.7 Albumin 3.8 TSH 1.00 Urine Color Yellow Urine Clarity Cloudy Urine pH 7.0 Ur Specific [place] 1.020 Urine Protein Negative Urine Ketones Negative Urine Blood Negative Urine Nitrite Positive H Urine Bilirubin Negative Urine Urobilinogen 0.2 Ur Leukocyte Esterase Trace H Urine RBC Urine WBC 10-20 Ur Epithelial Cells Not Applicable Urine Crystals Not Applicable Urine Bacteria Many Urine Mucus Not Applicable Ur Culture Indicated? Yes Urine Glucose Negative Salicylates Urine Opiates Screen Negative Urine Methadone Screen Negative Acetaminophen Ur Barbiturates Screen Negative Ur Tricyclics Screen Negative Ur Amphetamines Screen Negative U Benzodiazepines Scrn Negative Urine Cocaine Screen Negative Ur THC Screen Negative Ethyl Alcohol < 3.0 Preliminary micro results at discharge 01/22/19 15:42 Urine Culture - Preliminary Urine - Reflex from Ua Escherichia coli [facility] Medical History Lumbar radiculitis (Chronic) Active asthma Anxiety Arthritis Blindness, right eye, normal vision left eye Depression Diabetes mellitus HTN (hypertension) Hypothyroid Multiple personality disorder Obstructive sleep apnea Surgical History Cholecystectomy Tonsillectomy and adenoidectomy eye surgery Social History Smoking/Tobacco Use Status: Never Alcohol Intake: never Details: monthly or less Drug use: Never Substance use type: does not use Do you feel safe at home: No Do you feel safe in your relationship?: Yes Additional Social history: I feel like I'm going to hurt myself
--- NOTE | 2019-01-23 12:09 | INITIAL_ITS ---
- If Service Date Differs Date of service: 01/23/19 Time of Service: 11:49 Care Management Initial Assess REASON FOR HOSPITALIZATION:: Anxiety, Suicidal Ideation PAST MEDICAL HISTORY/PAST SURGICAL HISTORY:: Lumbar radiculitis (Chronic). Active asthma. Anxiety. Arthritis. Blindness, right eye, normal vision left eye. Depression. Diabetes mellitus. HTN (hypertension). Hypothyroid. Multiple personality disorder. Obstructive sleep apnea. Cholecystectomy. Tonsillectomy and adenoidectomy. eye surgery PREVIOUS FUNCTIONAL STATUS/SOCIAL/FAMILY SUPPORTS:: Jes resides alone in [place]. She reports that she has siblings in [place] and [place], and that her brother in [place] is her primary support. Jes at baseline is independent, she does depend on [employer] for assistance in the community, and they are a support to her per her report. CURRENT FUNCTIONAL STATUS:: Currently Jes is lying in bed this morning, receptive to discussion. ADVANCE DIRECTIVES:: None on file Has patient been provided with information about the portal?: Yes Did the patient sign up for the portal?: No CODE STATUS:: Full Code INSURANCE COVERAGE / FINANCIAL ISSUES:: YOLANDA, BLAKE CURRENT HOME/COMMUNITY SERVICES/EQUIPMENT:: Currently Jes has services through [facility], her [employer] CM is Ramona, she has Sadia Cardenas as a prescriber, and Shashank Wilks as a therapist. PRIMARY CARE PHYSICIAN:: Dr. Walton POTENTIAL DISCHARGE NEEDS:: Placement at Psychiatric facility PATIENT/FAMILY EDUCATION NEEDS:: Review DC instructions, any limitations, and ongoing DC planning discussion. Discuss 'Ask Me Three' ANTICIPATED BARRIERS TO DISCHARGE:: None identified at this time. TRANSPORTATION:: Via hearing healthcare practitioner PLAN:: Jes will transfer to [facility] today. BIB has contacted [facility] for transportation, and SAIDA Kaplan, is aware of acceptance.
== END 2019-01-23 15:12 | disposition short-term general hospital (02) ==
LOC: ER 19:22 → MS 20:08
PROVIDERS: Admitting Provider General Practice; Emergency Provider Student in an Organized Health Care Education/Training Program; PCP Family Medicine; Visit Provider Internal Medicine
DX: F41.8 Other specified anxiety disorders (principal); R45.851 Suicidal ideations; E11.9 Type 2 diabetes mellitus without complications; Z79.84 Long term (current) use of oral hypoglycemic drugs; E03.9 Hypothyroidism, unspecified; N39.0 Urinary tract infection, site not specified; B96.20 Unspecified Escherichia coli [E. coli] as the cause of diseases classified elsewhere; I10 Essential (primary) hypertension; Z75.1 Person awaiting admission to adequate facility elsewhere
CPT/HCPCS: 36415; 80053; 80307; 82805; 87077; 93005; 99222; 99239; 99285; 71045; 80320; 80329; 81003; 81015; 84443; 84484; 85025; 87086; 87186; 93010; 99217; 99219; G0378

== ENCOUNTER 2019-08-05 15:54 | Outpatient (REF) | payer MEDICARE, MEDICAID, SELFPAY | END 2019-08-05 16:14 | LOC: LBN 15:54 | PROVIDERS: PCP Family Medicine; Visit Provider Family Medicine | DX: J02.9 Acute pharyngitis, unspecified (principal) | CPT/HCPCS: 87070 ==

== ENCOUNTER 2019-08-26 15:08 | Outpatient (REF) | payer MEDICARE, MEDICAID, SELFPAY ==
[2019-08-26 19:11] LABS: TSH (W/Ref FT4) 1.92 uIU/mL (0.36-3.74)
== END 2019-08-26 15:28 ==
LOC: LBO 15:08
PROVIDERS: PCP Family Medicine; Visit Provider Family Medicine
DX: E03.9 Hypothyroidism, unspecified (principal)
CPT/HCPCS: 84443

== ENCOUNTER 2020-11-19 11:39 | Outpatient (CLI) | payer MEDICARE, MEDICAID, SELFPAY ==
--- NOTE | 2020-11-19 11:00 | DI.RAD_ITS ---
EXAM: XR KNEE LT 3V AP,LAT,SHERYL CLINICAL HISTORY: L knee pain. TECHNIQUE: 2D digital imaging was performed. COMPARISON: No exams were available for comparison FINDINGS: There is no evidence fracture or obvious joint effusion. Moderate tricompartmental degenerative phillips ges noted. No osseous lesions. IMPRESSION: DATA REPOSITORY: RADIATION DOSE DELIVERED:
--- NOTE | 2020-11-19 11:00 | DI.RAD_ITS ---
EXAM: XR KNEE RT 3V AP,LAT,SHERYL CLINICAL HISTORY: R knee pain. TECHNIQUE: 2D digital imaging was performed. COMPARISON: CR XR KNEE LT 3V AP,LAT,SHERYL from 11/19/2020 FINDINGS: There is no evidence of fracture. Subtle suggestion of joint effusion. There are tricompartmental d egenerative changes noted-moderate. No osseous lesions. IMPRESSION: DATA REPOSITORY: RADIATION DOSE DELIVERED:
== END 2020-11-19 11:59 ==
PROVIDERS: PCP Family Medicine; Referring Provider Family Medicine; Visit Provider Student in an Organized Health Care Education/Training Program
DX: M25.561 Pain in right knee (principal); M25.562 Pain in left knee; M23.91 Unspecified internal derangement of right knee; M23.92 Unspecified internal derangement of left knee
CPT/HCPCS: 20610; 73562; 99214; J1040

== ENCOUNTER 2021-02-05 02:48 | Outpatient (CLI) | payer MEDICARE, MEDICAID, SELFPAY ==
[2021-02-05 16:00] LABS: Hemoglobin A1C 6.7 % (<5.7)
[2021-02-05 16:40] LABS: ALT 35 U/L (14-59); AST 19 U/L (15-37); Albumin 3.8 g/dL (3.4-5.0); Alkaline Phosphatase 125 U/L (46-116); Anion Gap 8.8 mmol/L (3-11); BUN 21 mg/dL (7-18); Bilirubin, Total 0.5 mg/dL (0.2-1.0); CO2 29.2 mmol/L (21.0-32.0); Calcium 9.6 mg/dL (8.5-10.1); Chloride 102 mmol/L (98-107); Estimated GFR 56.56 (mL/min/1.73m2); FREE T4 1.44 ng/dL (0.76-1.46); Glucose 153 mg/dL (74-106); Potassium 4.2 mmol/L (3.5-5.1); Sodium 140 mmol/L (136-145); TSH 2.13 uIU/mL (0.36-3.74); Total Protein 7.3 g/dL (6.4-8.2)
[2021-02-05 18:00] LABS: Calculated LDL 73 mg/dL (<100); Cholesterol 171 mg/dL (<200); HDL Cholesterol 69 mg/dL (40-60); Triglyceride 146 mg/dL (<150)
== END 2021-02-05 02:49 | disposition home or self-care (01) ==
LOC: LBO 02:48
PROVIDERS: PCP Nurse Practitioner Family; Visit Provider Nurse Practitioner Family
DX: I10 Essential (primary) hypertension (principal); E11.9 Type 2 diabetes mellitus without complications; E03.9 Hypothyroidism, unspecified
CPT/HCPCS: 36415; 80053; 80061; 83036; 84439; 84443

== ENCOUNTER 2021-02-23 14:35 | Outpatient (REF) | payer MEDICARE, MEDICAID, SELFPAY | END 2021-02-23 14:36 | disposition home or self-care (01) | LOC: NCHCN 14:35 | PROVIDERS: PCP Nurse Practitioner Family; Visit Provider Family Medicine | DX: N39.0 Urinary tract infection, site not specified (principal) | CPT/HCPCS: 87077; 87086; 87186 ==

== ENCOUNTER 2021-03-11 16:50 | Outpatient (REF) | payer MEDICARE, MEDICAID, SELFPAY ==
--- NOTE | 2021-03-11 14:45 | PAPFT_PTH ---
PATIENT: Jes Bello LOC: [facility] U#:[id number] AGE/SX: 60/F ROOM: RE03/11/[address]: Erendira Prado : 1960 BED: DIS: 03/11/2021 SPEC #: [id number] RECD: 03/11/21 18:12 STATUS: LUÍS RENilsa #: [id number] TORIN: 03/11/21 14:[address]: Erendira Prado DEPT: [facility] Cytology RECD BY: Jane Hanna ENTERED: 03/11/21 18:13 SP TYPE: PAPFT OTHR DR: Yissel Guerra, ZACK Tissues: 1 - CX/ENDOCX FOR PAP SMEARS Procedures: PAP THIN PREP/UVM Screening HPV DNA PROBE Comments: [id number]
== END 2021-03-11 16:51 | disposition home or self-care (01) ==
LOC: LBN 16:50
PROVIDERS: PCP Nurse Practitioner Family; Visit Provider Obstetrics & Gynecology Gynecology
DX: Z12.4 Encounter for screening for malignant neoplasm of cervix (principal); Z11.51 Encounter for screening for human papillomavirus (HPV)
CPT/HCPCS: 88142; 87624

== ENCOUNTER 2021-03-31 01:39 | Outpatient (CLI) | payer MEDICARE, MEDICAID, SELFPAY ==
--- NOTE | 2021-03-31 08:25 | DI.MAMMO_ITS ---
Exam(s) MAMMO SCREENING EXAM: MAMMO SCREENING MAMMO SCREENING the CLINICAL HISTORY: screening,Z12.39 TECHNIQUE: Mammograms were interpreted according to the usual protocol including computer analysis w [employer] CAD system, tomosynthesis and C-view imaging. COMPARISON: Two thousand nine from FINDINGS: The breasts are composed of mainly fatty density , Breast Density category A. No suspicious masses or suspicious microcalcifications are seen. No skin thickening or abnormal axillary lymph nodes are seen. Skin calcifications are again noted. There has been no significant change from prior exams. IMPRESSION: BI-RADS Category 1, Negative mammogram Yearly screening mammography is recommended. Breast Density - Category A, fatty density. A negative radiographic report should not delay biopsy if a dominant or clinically suspicious mass is present. Up to ten percent of cancers are not identified on mammography. A negative report may reinforce clinical impression. Adenosis and dense breasts may obscure an underlying neoplasm. False positive reports average 6 to 10%. Patient will receive a letter notifying them of these results.
--- NOTE | 2021-03-31 08:30 | DI.US_ITS ---
Exam(s) US PELVIS TRANSVAGINAL EXAM: US PELVIS TRANSVAGINAL CLINICAL HISTORY: pelvic pain, R10.2. TECHNIQUE: Transabdominal and transvaginal pelvic ultrasound was performed using standard protocol. COMPARISON: No exams were available for comparison FINDINGS: KIDNEYS: There is limited visualization of the kidneys. No evidence of hydronephrosis or nephrolithi asis. UTERUS: Position: Anteverted. Size: 6.4 long by 3.7 AP by 4.7 transverse cm Endometrium: 1.2 cm. The endometrium is thickened and heterogeneous. Cystic areas are seen within th e endometrium. No blood flow is detected. Myometrium: Unremarkable. Cervix: In the cervix there is a 0.7 x 0.4 x 0.4 cm isoechoic vascular mass within the canal. OVARIES: The right ovary was not visualized transabdominally or transvaginally. Left: 2.2 x 1 x 1.2 cm Cyst or mass: None. DOPPLER: Color: Symmetric and uniform flow to the left ovary. No hyperemia. Duplex: Normal left ovarian arterial waveform is visualized. CUL-DE-SAC: Free fluid: None. Other: None. IMPRESSION: 1. Normal sonographic appearance of the kidneys. 2. Thickened heterogeneous endometrial stripe at 1.2 cm. Differential considerations include polyp, hyperplasia or neoplasm. 3. 0.7 x 0.4 x 0.4 cm solid vascular endocervical mass. This may represent a polyp. Neoplasm cannot be excluded. 4. The right ovary was not visualized on this examination. The left ovary is unremarkable. DATA REPOSITORY:
== END 2021-03-31 01:59 ==
PROVIDERS: PCP Nurse Practitioner Family; Visit Provider Obstetrics & Gynecology Gynecology
DX: R10.2 Pelvic and perineal pain (principal); R93.89 Abnormal findings on diagnostic imaging of other specified body structures; N88.8 Other specified noninflammatory disorders of cervix uteri
CPT/HCPCS: 77063; 77067; 76830; 76856

== ENCOUNTER 2021-04-12 16:21 | Outpatient (REF) | payer MEDICARE, MEDICAID, SELFPAY ==
--- NOTE | 2021-04-12 16:00 | ENDOMET_PTH ---
PATIENT: Jes Bello LOC: [facility] U#:[id number] AGE/SX: 60/F ROOM: RE04/12/[address]: Celia Douglas DO : 1960 BED: DIS: 04/12/2021 SPEC #: [id number] RECD: 04/12/21 18:01 STATUS: LUÍS REQ #: [id number] TORIN: 04/12/21 16:[address]: Celia Douglas DEPT: Surgical Specimen RECD BY: Jane Hanna ENTERED: 04/12/21 18:02 SP TYPE: Endomet OTHR DR: Yissel Guerra APRN Tissues: 1 - ENDOMETRIUM BX/CURRETTE Procedures: GROSS AND MICRO LEVEL 4 Comments: [id number]
== END 2021-04-12 16:22 | disposition home or self-care (01) ==
LOC: LBN 16:21
PROVIDERS: PCP Nurse Practitioner Family; Visit Provider Obstetrics & Gynecology
DX: N85.01 Benign endometrial hyperplasia (principal)
CPT/HCPCS: 88305

== ENCOUNTER → 2021-05-03 14:12 | Outpatient (BNVA) | payer MEDICARE, MEDICAID, SELFPAY | PROVIDERS: PCP Nurse Practitioner Family; Referring Provider Nurse Practitioner Family; Visit Provider Student in an Organized Health Care Education/Training Program | DX: M23.92 Unspecified internal derangement of left knee (principal); M23.91 Unspecified internal derangement of right knee; M17.11 Unilateral primary osteoarthritis, right knee; M17.12 Unilateral primary osteoarthritis, left knee | CPT/HCPCS: 20610; J7318 ==

== ENCOUNTER 2021-10-25 07:43 | Outpatient (CLI) | payer MEDICARE, MEDICAID, SELFPAY ==
--- NOTE | 2021-10-25 07:30 | DI.US_ITS ---
Exam(s) US PELVIS TRANSVAGINAL EXAM: US PELVIS TRANSVAGINAL CLINICAL HISTORY: Follow-up on thickened endometrial stripe,r93.89 TECHNIQUE: Transabdominal and transvaginal imaging was performed using standard protocol. COMPARISON: US US PELVIS TRANSVAGINAL from 03/31/2021 US US PELVIS TRANSVAGINAL from 03/31/2021 FINDINGS: KIDNEYS: Kidneys are symmetric in size. No evidence of renal calculi. No evidence of hydronephrosis. No renal mass or cyst identified. UTERUS: Anteverted. 7.1 x 3.7 x 4.6 cm Endometrium: Abnormally thickened at 15 millimeters. Multiple cystic spaces and heterogeneous appear ance. Myometrium: Unremarkable. Cervix: 5 x 3 4 x 4 millimeter vascular lesion in the cervical canal, not significantly changed. OVARIES: Right: Cyst or mass: None. Left: Cyst or mass: None. DOPPLER: Color: Symmetric and uniform flow to both ovaries. No hyperemia. CUL-DE-SAC: Free fluid: None. IMPRESSION: 1. Abnormally thickened, heterogeneous endometrium. Apparent cervical polyp is again noted, not sign ificantly changed. 2. Unremarkable bilateral ovaries. DATA REPOSITORY:
--- NOTE | 2021-11-11 13:41 | W.ANESCON ---
General Date of Service Date of Service: 11/11/21 Reason for Consult Requesting Provider: Erendira Prado How Consult Conducted:: Phone Conversation (and chart review) Reason for Consult:: Patient concern related to Anesthetic Plan. Does not want to be asleep. Consult Recommendation after Review:: Discussed common plan for D&Cs with the patient (Propofol bolus and infusion). Patient is not comfortable with this plan. Discussed spinal anesthetic with patient risks and benefits: Patient would like to proceed with spinal. She is concerned about anything that might decrease her cognitive function. I assured her that no medications will be given without her express consent. Patient was informed that even with a short acting agent, most likely her stay will be extended in [facility] until the spinal has worn off. The patient confirmed she undestood and wants to proceed with this plan. Meds Allergies and Home Medications Allergies Allergy/AdvReac Type Severity Reaction Status Date / Time No Known Allergies Allergy Verified 09/08/21 16:09 Home Medication Medication Instructions Recorded Blood Glucose Test #1 box 03/29/18 blood-glucose meter [Blood Glucose #1 kit 03/29/18 Monitoring] lancets #100 ea 03/29/18 albuterol sulfate 90 mcg/actuation 1 puff IH Q6H PRN 07/02/18 aerosol inhaler vilazodone 20 mg tablet 20 mg PO DAILY 08/26/19 quetiapine 25 mg tablet 25 mg PO QHS 11/04/19 temazepam 30 mg capsule 30 mg PO QHS PRN 04/14/20 levothyroxine 150 mcg tablet 150 mcg PO DAILY #90 tab 12/11/20 omega-3 fatty acids-fish oil 300 1 cap PO DAILY #90 cap 12/11/20 mg-1,000 mg capsule celecoxib 200 mg capsule 200 mg PO DAILY PRN #90 tab-cap 01/07/21 montelukast 10 mg tablet 10 mg PO DAILY 90 Days #90 tab-cap 01/07/21 bupropion HCl 150 mg 24 hr tablet, 300 mg PO QAM tab 01/15/21 extended release lisinopril 20 mg tablet 20 mg PO DAILY #90 tab-cap 03/29/21 buspirone 5 mg tablet 5 mg PO DAILY PRN tab 09/08/21 oxybutynin chloride 5 mg 5 mg PO DAILY #90 tab 09/08/21 tablet,extended release 24 hr melatonin 10 mg tablet 20 - 30 mg PO HS tab 09/09/21 [facility] Active Problems Active Problems: Problem Status Onset Code Bilateral primary osteoarthritis of knee M17.0 Overactive bladder N32.81 Thickened endometrium R93.89 Incontinence R32 Pelvic pain R10.2 Asperger syndrome F84.5 Personality disorder, unspecified F60.9 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 Multiple personality disorder Essential hypertension I10 CIARA (obstructive sleep apnea) G47.33 Generalized anxiety disorder F41.1 Major depressive disorder F32.9 Type 2 diabetes mellitus E11.9 Hypothyroidism E03.9 Internal derangement of left knee M23.92 Internal derangement of right knee M23.91 Chronic insomnia F51.04 Medical History Active Problem List Bilateral primary osteoarthritis of knee (Chronic) Overactive bladder (Chronic) Thickened endometrium (Acute) Incontinence (Acute) Pelvic pain (Acute) Asperger syndrome (Chronic) Personality disorder, unspecified (Chronic) Blind right eye (Chronic) Multiple personality disorder (Chronic) Essential hypertension (Chronic) CIARA (obstructive sleep apnea) (Chronic) Generalized anxiety disorder (Chronic) Major depressive disorder (Chronic) Type 2 diabetes mellitus (Chronic) Hypothyroidism (Chronic) Internal derangement of left knee (Chronic) Internal derangement of right knee (Chronic) Chronic insomnia (Chronic) Medical History Lumbar radiculitis Lumbosacral spondylosis without myelopathy Surgical History Surgical History eye surgery S/P cholecystectomy S/P tonsillectomy and adenoidectomy Tobacco Smoking/Tobacco Use Status: Former Tobacco Use Passive smoking exposure: Yes (a lot as a child) Alcohol Alcohol Intake: never Substance Use Substance use: Never Substance use type: does not use Vital Signs & Lab Results Point of Care Results Nursing Point of Care Results: No Data to Display Lab Results Blood Type / Crossmatch: No Data to Display Complete Blood Count: No Data to Display Complete Metabolic Panel: No Data to Display Liver Function Panel: No Data to Display Coagulation Panel: No Data to Display Cardiac Panel: No Data to Display Arterial Blood Gas: No Data to Display Venous Blood Gas: No Data to Display Pancreas Panel: No Data to Display Thyroid Panel: No Data to Display Infectious Disease: No Data to Display Blood Cultures: No Data to Display Toxicology Panel: No Data to Display Anesthesia Assessment and Plan Anesthesia History Personal History: PONV (With ether anesthetic as a child) Family History: No Family History of Anesthesia Complications Exercise Tolerance Exercise Tolerance: Metabolic Equivalents>4 Pertinent Negatives Pertinent Negatives: No Symptoms of GERD, No Major Cardiovascular Symptoms or Complaints and No History of CVA/TIA Airway Exam Known Difficult Airway: No Anesthesia Plan Resuscitation Status: Full Code Anesthesia Technique: Spinal Anesthesia Airway Planned: Natural Airway Monitors Used: Standard Monitors
== END 2021-10-25 08:03 ==
PROVIDERS: PCP Nurse Practitioner Family; Visit Provider Obstetrics & Gynecology Gynecology
DX: N84.1 Polyp of cervix uteri; R93.89 Abnormal findings on diagnostic imaging of other specified body structures
CPT/HCPCS: 76830; 76856

== ENCOUNTER → 2021-11-22 10:54 | Outpatient (BNVA) | payer MEDICARE, MEDICAID, SELFPAY | PROVIDERS: PCP Nurse Practitioner Family; Referring Provider Nurse Practitioner Family; Visit Provider Nurse Practitioner Gerontology | DX: N39.41 Urge incontinence (principal); E11.9 Type 2 diabetes mellitus without complications; I10 Essential (primary) hypertension | CPT/HCPCS: 99214 ==

== ENCOUNTER 2021-11-29 03:03 | Outpatient (CLI) | payer MEDICARE, MEDICAID, SELFPAY ==
[2021-11-29 11:49] LABS: HCT 45.6 % (36.0-46.0); HGB 15.2 g/dL (11.2-15.7); MCH 30.7 pg (27.0-33.0); MCHC 33.3 % (32.0-36.0); MCV 92.1 fL (80-95); MPV 8.1 fL (8.0-11.0); Platelet Count 264 10^3/uL (130-400); RBC 4.95 10^6/uL (3.93-5.22); RDW-SD 40.5 fL; WBC 9.09 10^3/uL (4.4-10.8)
[2021-11-29 12:05] LABS: ALT 37 U/L (14-59); AST 22 U/L (15-37); Albumin 3.5 g/dL (3.4-5.0); Alkaline Phosphatase 126 U/L (46-116); Anion Gap 9.2 mmol/L (3-11); BUN 25 mg/dL (7-18); Bilirubin, Total 0.3 mg/dL (0.2-1.0); CO2 25.8 mmol/L (21.0-32.0); CREATININE 1.2 mg/dL (0.55-1.02); Calcium 9.4 mg/dL (8.5-10.1); Chloride 102 mmol/L (98-107); Estimated GFR 45.67 (mL/min/1.73m2); Glucose 182 mg/dL (74-106); Potassium 4.6 mmol/L (3.5-5.1); Sodium 137 mmol/L (136-145); Total Protein 7.6 g/dL (6.4-8.2)
[2021-11-29 12:17] LABS: Source Nasal/Nares
[2021-11-29 19:57] LABS: COVID-19 PCR Negative (Negative)
== END 2021-11-29 03:04 | disposition home or self-care (01) ==
LOC: LBO 03:03
PROVIDERS: PCP Nurse Practitioner Family; Visit Provider Obstetrics & Gynecology Gynecology
DX: Z01.818 Encounter for other preprocedural examination (principal)
CPT/HCPCS: 36415; 80053; 85027; 86850; 86900; 86901; 87635

== ENCOUNTER 2021-12-01 06:16 | Day surgery (SDC) | payer MEDICARE, MEDICAID, SELFPAY ==
--- NOTE | 2021-12-01 06:44 | W.ANESPRE ---
General Info Date of Service Date Performed: 12/01/21 Height: 5 ft 3 in Weight: 122.016 kg Body Mass Index (BMI): 47.6 Surgical Procedure: Operation Date: 12/01/21 07:40 Proposed Procedures Side Surgeon p Dilation & Curettage with Hysteroscopy Erendira Prado MD Meds Allergies and Home Medications Allergies Allergy/AdvReac Type Severity Reaction Status Date / Time No Known Allergies Allergy Verified 12/01/21 06:27 Home Medication Medication Instructions Recorded Blood Glucose Test #1 box 03/29/18 blood-glucose meter [Blood Glucose #1 kit 03/29/18 Monitoring] lancets #100 ea 03/29/18 albuterol sulfate 90 mcg/actuation 1 puff IH Q6H PRN 07/02/18 aerosol inhaler vilazodone 20 mg tablet 20 mg PO DAILY 08/26/19 quetiapine 25 mg tablet 25 mg PO QHS 11/04/19 temazepam 30 mg capsule 30 mg PO QHS PRN 04/14/20 celecoxib 200 mg capsule 200 mg PO DAILY PRN #90 tab-cap 01/07/21 montelukast 10 mg tablet 10 mg PO DAILY 90 Days #90 tab-cap 01/07/21 bupropion HCl 150 mg 24 hr tablet, 300 mg PO QAM tab 01/15/21 extended release lisinopril 20 mg tablet 20 mg PO DAILY #90 tab-cap 03/29/21 buspirone 5 mg tablet 5 mg PO DAILY PRN tab 09/08/21 melatonin 10 mg tablet 20 - 30 mg PO HS tab 09/09/21 levothyroxine 150 mcg tablet 150 mcg PO DAILY #90 tab 11/17/21 omega-3 fatty acids-fish oil 300 1 cap PO DAILY #90 cap 11/17/21 mg-1,000 mg capsule mirabegron 25 mg tablet,extended 25 mg PO DAILY #28 tab 11/22/21 release 24 hr Current Visit Medications: Current Medications Generic Name Dose Route Start Last Admin Trade Name Freq PRN Reason Stop Dose Admin Ringer's Solution 1,000 mls @ 125 mls/hr 12/01/21 06:00 IV 12/20/21 23:59 INFUSION SHANE IV Miscellaneous Supplies 1 each 12/01/21 06:00 Iv Access IV 12/20/21 23:59 DIRECTED SHANE Sodium Chloride 0 ml 12/01/21 06:00 Normal Saline Flush 10 Ml Syr IV 12/20/21 23:59 PRN PRN Sodium Chloride 0 ml 12/01/21 06:00 Normal Saline 10 Ml Vial IJ 12/20/21 23:59 DIRECTED PRN Sterile Water 0 ml 12/01/21 06:00 Water,Injection,Sterile 10 Ml Vial IJ 12/20/21 23:59 DIRECTED PRN PFSH Active Problems Active Problems: Problem Status Onset Code Multiple personality disorder Essential hypertension I10 Hypothyroidism E03.9 CIARA (obstructive sleep apnea) G47.33 Personality disorder, unspecified F60.9 Asperger syndrome F84.5 Chronic insomnia F51.04 Internal derangement of right knee M23.91 Internal derangement of left knee M23.92 Type 2 diabetes mellitus E11.9 Major depressive disorder F32.9 Generalized anxiety disorder F41.1 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 Pelvic pain R10.2 Incontinence R32 Thickened endometrium R93.89 Overactive bladder N32.81 Bilateral primary osteoarthritis of knee M17.0 Pre-op exam Z01.818 Medical History Medical History Lumbar radiculitis Lumbosacral spondylosis without myelopathy Surgical History Surgical History eye surgery History of nasal surgery hx of nasal turbinate surgery S/P cholecystectomy S/P tonsillectomy and adenoidectomy Tobacco Smoking/Tobacco Use Status: Former Tobacco Use Passive smoking exposure: Yes (a lot as a child) Alcohol Alcohol Intake: never Substance Use Substance use: Never Substance use type: does not use Vital Signs and Lab Results Lab Results Blood Type / Crossmatch: Patient ABO/Rh A Positive 11/29/21 Antibody Screen NEGATIVE 11/29/21 Complete Blood Count: White Blood Count 9.09 10^3/uL (4.4-10.8) 11/29/21 11:35 11/29/21 Red Blood Count 4.95 10^6/uL (3.93-5.22) 11/29/21 11:35 11/29/21 Hemoglobin 15.2 g/dL (11.2-15.7) 11/29/21 11:35 11/29/21 Hematocrit 45.6 % (36.0-46.0) 11/29/21 11:35 11/29/21 Platelet Count 264 10^3/uL (130-400) 11/29/21 11:35 11/29/21 Complete Metabolic Panel: Sodium Level 137 mmol/L (136-145) 11/29/21 11:35 11/29/21 Potassium Level 4.6 mmol/L (3.5-5.1) 11/29/21 11:35 11/29/21 Chloride Level 102 mmol/L (98-107) 11/29/21 11:35 11/29/21 Carbon Dioxide Level 25.8 mmol/L (21.0-32.0) 11/29/21 11:35 11/29/21 Blood Urea Nitrogen 25 mg/dL (7-18) H 11/29/21 11:35 11/29/21 Creatinine 1.2 mg/dL (0.55-1.02) H 11/29/21 11:35 11/29/21 Estimated GFR/1.73 m2 45.67 (mL/min/1.73m2) 11/29/21 11:35 11/29/21 Calcium Level 9.4 mg/dL (8.5-10.1) 11/29/21 11:35 11/29/21 Albumin 3.5 g/dL (3.4-5.0) 11/29/21 11:35 11/29/21 Glucose Level 182 mg/dL (74-106) H 11/29/21 11:35 11/29/21 Liver Function Panel: Alanine Aminotransferase (ALT/SGPT) 37 U/L (14-59) 11/29/21 11:35 11/29/21 Aspartate Amino Transf (AST/SGOT) 22 U/L (15-37) 11/29/21 11:35 11/29/21 Coagulation Panel: No Data to Display Cardiac Panel: No Data to Display Arterial Blood Gas: No Data to Display Venous Blood Gas: No Data to Display Pancreas Panel: No Data to Display Thyroid Panel: No Data to Display Infectious Disease: Coronavirus (COVID-19)(PCR) Negative (Negative) 11/29/21 11:46 11/29/21 Coronavirus 2019 Source Nasal/Nares 11/29/21 11:46 11/29/21 Blood Cultures: No Data to Display Toxicology Panel: No Data to Display Anesthesia Assessment and Plan Anesthesia History Personal History: PONV (Ether anesthetic) Family History: No Family History of Anesthesia Complications Exercise Tolerance Exercise Tolerance: Metabolic Equivalents>4 Pertinent Negatives Pertinent Negatives: No Symptoms of GERD, No Major Cardiovascular Symptoms or Complaints, No Major Pulmonary Symptoms or Complaints and No History of CVA/TIA Cardiac & Pulmonary Exam Cardiac Exam: Normal S1/S2 Heart Sounds Pulmonary Exam: Clear Bilateral Breath Sounds Implantable Cardiac Device Does patient have a Pacemaker or an ICD?: No Airway Exam Known Difficult Airway: No Mallampati Class: 4 Mouth Opening: Normal (> 3cm) Thyromental Distance: Greater than 3 cm Neck Range of Motion: Full ROM Neck Circumference: Normal Teeth Condition: Normal Dentition ASA Classification ASA Score: ASA 3 Emergency Case?: No NPO Status NPO Status: NPO Clears >2 hours, Solids >8 hours Anesthesia Plan Resuscitation Status: Full Code Anesthesia Technique: Spinal Anesthesia Airway Planned: Natural Airway Monitors Used: Standard Monitors Preoperative Comments:: Patient does not want to go to sleep unless it is emergent. Her and I had a long and thorough discussion of risks and potentials and emergency pathways. Patient stated she would agree only if emergency. We did discuss that the midazolam might blur her ability to remember the discussion process in the event we had to convert to GA. She is aware and agrees. Potential L4/5 disc herniation and back problems and high BMI could complicate spinal plan. Planning chloroprocaine spinal.
[2021-12-01 06:46] VITALS: BP 120/69; PULSE 82; RESP 18; TEMP 36.3; O2SAT 97
[2021-12-01] MEDS: Lactated Ringers 1,000 ML 125 ML IV ×2 (07:18→09:14)
[2021-12-01 07:45] VITALS: BMI 47.6
--- NOTE | 2021-12-01 09:04 | ENDO_PTH ---
PATIENT: Jes Bello LOC: [facility] U#:[id number] AGE/SX: 61/F ROOM: RE12/01/[address]: Erendira Prado : 1960 BED: DIS: 12/01/2021 SPEC #: [id number] RECD: 12/01/21 12:43 STATUS: LUÍS RENilsa #: [id number] TORIN: 12/01/21 09:[address]: Erendira Prado DEPT: Surgical Specimen RECD BY: Jane Hanna ENTERED: 12/01/21 12:45 SP TYPE: Endo OTHR DR: Yissel Guerra APRN Tissues: 1 - ENDOCERVICAL BX/CURRETTE 2 - ENDOMETRIUM BX/CURRETTE Procedures: GROSS AND MICRO LEVEL 4 Comments: [id number]
[2021-12-01] MEDS: Bupivacaine 0.25% Pres-Free 30 ML VIAL (09:15)
[2021-12-01 09:45] VITALS: BP 128/76; PULSE 76; RESP 18; TEMP 36.2; O2SAT 96
--- NOTE | 2021-12-01 09:52 | W.PM.OP ---
Date of service: 12/01/21 Time of Service: 09:53 Operative Note Operative Note DATE OF PROCEDURE: 12/01/21 PRE-OP DIAGNOSIS: thickened endometrial stripe POST-OP DIAGNOSIS: same endocervical polyp PROCEDURE: Cervical dilation and curretage, cervical polypectomy SURGEON: Erendira Prado ANESTHESIA TYPE: MAC Refer to Anesthesia Record ESTIMATED BLOOD LOSS: 5 PATHOLOGY: other (Endometrial curettings to pathology) COMPLICATIONS: None Patient was transported to: same day Patient's condition: stable Indications: 61-year-old G1, P0 female with a incidental finding of a thickened endometrial stripe at time of pelvic ultrasound performed 02/2021 for pelvic pain. Patient did not experience postmenopausal bleeding. Endometrial biopsy was performed in the office but no endometrial tissue was obtained. Patient agreed to a procedure under anesthesia for evaluation of her uterine cavity. Findings: Uterus sounded to 9 cm. Visualization of the uterine cavity with the hysteroscope was attempted but visualization of the uterine cavity was limited and the hysteroscopic procedure was discontinued. There was a endocervical polyp present at the external os that was removed at the beginning of the procedure. Scant tissue was obtained with curettage of all 4 uterine cavity trejo. Procedure Description: Patient was brought to the operating room where she is placed in the dorsal supine position and monitored anesthesia care was administered. SCDs were placed. No antibiotics were required. A surgical timeout was performed. She was prepped and draped in the usual sterile fashion. A bivalve speculum is placed into the vagina and a single-tooth tenaculum was used to grasp the anterior lip of the cervix and a paracervical block was performed with 0.25% Marcaine without epinephrine with 5 cc injected into the 4 and 8:00 paracervical spaces respectively. Then sequentially dilated to a maximum of 12 Wahl and a hysteroscope was introduced into the uterine cavity with normal saline as the distention medium. Visualization of the endometrial cavity was limited and I was unable to determine if there are any intracavitary filling defects. The hysteroscope was removed and a uterine curettage using the suction aspirator with a 7 mm curved suction cannula was attempted. There was scant tissue that was returned from the suction curettage. A banjo curette was then inserted into the uterine cavity and a curetting of all 4 quadrants of the uterine cavity were performed with scant tissue returned. The banjo curette was removed from the uterus and the tenaculum was removed from the anterior lip of the cervix and the tenaculum site was noted to be hemostatic. All instruments removed from the patient's vagina. She was placed in the dorsal supine position, awakened and transported to recovery area in stable condition. All sponge lap and needle counts are correct x2.
[2021-12-01] MEDS: oxyCODONE 5 mg/Acetaminophen 325 mg TAB PO ×2 (10:06→10:45)
--- NOTE | 2021-12-01 10:08 | W.PM.DSUDISC ---
Discharge Plan Disposition Patient Disposition: HOME Condition: Fair Discharge Details Attending Provider: Erendira Prado Primary Care Provider: Yissel Guerra Home Meds and New Rx's Prescriptions: No Action vilazodone 20 mg tablet 20 mg PO DAILY RF: 0 bupropion HCl 150 mg tablet extended release 24 hr 300 mg PO QAM RF: 0 temazepam 30 mg capsule 30 mg PO QHS PRN (Reason: insomnia) RF: 0 melatonin 10 mg tablet 20 - 30 mg PO HS RF: 0 Myrbetriq 25 mg tablet extended release 24 hr 25 mg PO DAILY Qty: 28 RF: 0 albuterol sulfate [Ventolin HFA] 90 mcg/actuation HFA aerosol inhaler 1 puff IH Q6H PRNRF: 0 quetiapine [Seroquel] 25 mg tablet 25 mg PO QHS RF: 0 (DME) Blood Glucose Test 1 EACH strip 1 ea Miscellaneous BID 30 Days Qty: 1 RF: 11 (DME) blood-glucose meter [Blood Glucose Monitoring] 1 EACH kit 1 ea Miscellaneous BID Qty: 1 RF: 0 (DME) lancets 1 EACH misc 1 ea Miscellaneous BID 50 Days Qty: 100 RF: 12 celecoxib 200 mg capsule 200 mg PO DAILY PRN (Reason: back pain) Qty: 90 RF: 3 montelukast [Singulair] 10 mg tablet 10 mg PO DAILY 90 Days Qty: 90 RF: 3 lisinopril 20 mg tablet 20 mg PO DAILY Qty: 90 RF: 3 buspirone 5 mg tablet 5 mg PO DAILY PRNRF: 0 levothyroxine [Synthroid] 150 mcg tablet 150 mcg PO DAILY Qty: 90 RF: 3 omega-3 fatty acids-fish oil 300-1,000 mg capsule 1 cap PO DAILY Qty: 90 RF: 3 Discharge Instructions Additional Instructions: He will have bleeding from the vagina as result of the procedure. You may use a pad. The bleeding will decrease in 2 to 3 days. The plan is to have you speak with Dr. Prado regarding your pathology results in 2 weeks. You may have a telemedicine visit or an office visit depending upon your preference. Stand Alone Forms: DSU Post Gynecology Surgery Activity:: Activity as Tolerated Diet:: As Tolerated Discharge Orders Discharge Orders: Discharge Order (Routine); Ordered 12/01/21 Ordered By: Erendira Prado DS: Diagnosis Discharge Diagnosis (1) Thickened endometrium: Status: Acute (2) History of D&C: Status: Acute
[2021-12-01 10:20] VITALS: BP 149/76; PULSE 66; RESP 20; TEMP 36.4; O2SAT 98
--- NOTE | 2021-12-01 10:46 | W.ANESPOSTOP ---
Postoperative Evaluation Date, Time and Location Date Performed: 12/01/21 Time Performed: 09:45 Patient Location: Day Surgery Unit Vital Signs Most Recent Imported Vital Signs: Most Recent Vital Signs Temp Pulse Resp BP Pulse Ox 36.2 C L 76 18 128/76 96 12/01/21 09:45 12/01/21 09:45 12/01/21 09:45 12/01/21 09:45 12/01/21 09:45 Pain Score Most Recent Pain Score: Most Recent Pain Score Pain Level 4 12/01/21 09:45 Assessment Mental Status: Awake (Alert & Oriented to Patient Baseline) Airway and Respiratory Function: Patent airway with normal (patient baseline) respiratory exam Cardiovascular Function: Hemodynamically Stable Hydration Status: Adequately Hydrated Nausea & Vomiting: No Nausea or Vomiting Pain: Pt. Denies Any Pain Peripheral Nerve Block: Patient did not receive a nerve block Postoperative Comments:: Discussed the patients anesthetic course intraop to reinforce our previous discussions. Discussed her need to tell future providers of her being a difficult spinal. Patient denied further questions and thanked me for the flexibility we showed with her today.
== END 2021-12-01 11:33 | disposition home or self-care (01) ==
PROVIDERS: PCP Nurse Practitioner Family; Visit Provider Obstetrics & Gynecology Gynecology
PROC: 0UDB8ZZ Extraction of Endometrium, Via Natural or Artificial Opening Endoscopic (ICD-10-PCS; CPT 58558; principal; 2021-12-01 07:30)
DX: R93.89 Abnormal findings on diagnostic imaging of other specified body structures (principal); N84.1 Polyp of cervix uteri
CPT/HCPCS: 58558; 88305; J2001; J2250; J2405; J3010

== ENCOUNTER → 2022-01-03 14:23 | Outpatient (BNVA) | payer MEDICARE, MEDICAID, SELFPAY | PROVIDERS: PCP Nurse Practitioner Family; Referring Provider Nurse Practitioner Family; Visit Provider Nurse Practitioner Gerontology | DX: N39.41 Urge incontinence (principal); N32.81 Overactive bladder | CPT/HCPCS: 99214 ==

== ENCOUNTER → 2022-01-25 14:56 | Outpatient (BNVA) | payer MEDICARE, MEDICAID, SELFPAY | PROVIDERS: PCP Nurse Practitioner Family; Referring Provider Nurse Practitioner Family; Visit Provider Nurse Practitioner Gerontology | DX: N39.41 Urge incontinence (principal); N32.81 Overactive bladder | CPT/HCPCS: 51798; 99214 ==

== ENCOUNTER → 2022-05-09 14:54 | Outpatient (BNVA) | payer MEDICARE, MEDICAID, SELFPAY | PROVIDERS: PCP Nurse Practitioner Family; Referring Provider Nurse Practitioner Family; Visit Provider Nurse Practitioner Gerontology | DX: N39.41 Urge incontinence (principal); N32.81 Overactive bladder | CPT/HCPCS: 99214 ==

== ENCOUNTER 2022-10-12 02:10 | Outpatient (CLI) | payer MEDICARE, MEDICAID, SELFPAY ==
[2022-10-12 15:31] LABS: Abs Immature Grans 0.03 10^3/uL (0.0-0.06); Absolute Basophil Count 0.06 10^3/uL (0.0-0.2); Absolute Eosinophil Count 0.09 10^3/uL (0.0-0.7); Absolute Lymphocyte Count 1.91 10^3/uL (1.2-3.4); Absolute Monocyte Count 0.93 10^3/uL (0.1-0.8); Absolute Neutrophil Count 6.45 10^3/uL (1.2-6.7); Basophils % 0.6; HCT 43.8 % (36.0-46.0); HGB 15.3 g/dL (11.2-15.7); Immature Grans % 0.3; Lymphocytes % 20.2; MCH 31.9 pg (27.0-33.0); MCHC 34.9 % (32.0-36.0); MCV 91 fL (80-95); MPV 8.2 fL (8.0-11.0); Monocytes % 9.8; Neutrophils % 68.1; Platelet Count 267 10^3/uL (130-400); RBC 4.79 10^6/uL (3.93-5.22); RDW 12.1 % (11.7-14.6); RDW-SD 40.7 fL; WBC 9.47 10^3/uL (4.4-10.8)
[2022-10-12 16:35] LABS: ALT 45 U/L (14-59); AST 26 U/L (15-37); Albumin 3.6 g/dL (3.4-5.0); Alkaline Phosphatase 90 U/L (46-116); BUN 28 mg/dL (7-18); Bilirubin, Total 0.3 mg/dL (0.2-1.0); CREATININE 1.1 mg/dL (0.55-1.02); Calcium 9.8 mg/dL (8.5-10.1); Chloride 101 mmol/L (98-107); Estimated GFR 56.81 (mL/min/1.73m2); Glucose 200 mg/dL (74-106); Potassium 4.1 mmol/L (3.5-5.1); Sodium 135 mmol/L (136-145); TSH (W/Ref FT4) 3.06 uIU/mL (0.36-3.74); Total Protein 7.6 g/dL (6.4-8.2)
[2022-10-12 16:48] LABS: Calculated LDL 83 mg/dL (<100); Cholesterol 152 mg/dL (<200); HDL Cholesterol 44 mg/dL (40-60); Triglyceride 126 mg/dL (<150)
== END 2022-10-12 02:11 | disposition home or self-care (01) ==
LOC: LBO 02:10
PROVIDERS: PCP Nurse Practitioner Family; Visit Provider Nurse Practitioner Family
DX: E78.5 Hyperlipidemia, unspecified (principal); E03.9 Hypothyroidism, unspecified; E11.9 Type 2 diabetes mellitus without complications; R53.83 Other fatigue
CPT/HCPCS: 36415; 80053; 80061; 82043; 82570; 84443; 85025

== ENCOUNTER → 2022-10-31 14:20 | Outpatient (BNVA) | payer MEDICARE, MEDICAID, SELFPAY | PROVIDERS: PCP Nurse Practitioner Family; Referring Provider Nurse Practitioner Family; Visit Provider Nurse Practitioner Gerontology | DX: N39.41 Urge incontinence (principal) | CPT/HCPCS: 99214 ==

== ENCOUNTER 2023-01-04 02:57 | Outpatient (CLI) | payer MEDICARE, MEDICAID, SELFPAY ==
[2023-01-04 16:49] LABS: Vitamin B12 1039 pg/mL (193-986)
== END 2023-01-04 02:58 | disposition home or self-care (01) ==
LOC: LBO 02:57
PROVIDERS: PCP Nurse Practitioner Family; Visit Provider Nurse Practitioner Family
DX: R53.83 Other fatigue (principal); Z86.39 Personal history of other endocrine, nutritional and metabolic disease
CPT/HCPCS: 36415; 82607

== ENCOUNTER 2023-03-13 02:05 | Outpatient (CLI) | payer MEDICARE, MEDICAID, SELFPAY ==
[2023-03-13 14:47] LABS: Abs Immature Grans 0.03 10^3/uL (0.0-0.06); Absolute Basophil Count 0.08 10^3/uL (0.0-0.2); Absolute Lymphocyte Count 2.51 10^3/uL (1.2-3.4); Absolute Monocyte Count 0.91 10^3/uL (0.1-0.8); Absolute Neutrophil Count 7.88 10^3/uL (1.2-6.7); Basophils % 0.7; Eosinophils % 1.7; HCT 46.5 % (36.0-46.0); HGB 15.8 g/dL (11.2-15.7); Immature Grans % 0.3; Lymphocytes % 21.6; MCH 31.2 pg (27.0-33.0); MCV 92 fL (80-95); Monocytes % 7.8; Neutrophils % 67.9; Platelet Count 285 10^3/uL (130-400); RBC 5.06 10^6/uL (3.93-5.22); RDW 12.3 % (11.7-14.6); RDW-SD 41.7 fL; WBC 11.61 10^3/uL (4.4-10.8)
[2023-03-13 16:01] LABS: ALT 36 U/L (14-59); AST 24 U/L (15-37); Albumin 3.5 g/dL (3.4-5.0); Alkaline Phosphatase 113 U/L (46-116); Anion Gap 6.2 mmol/L (3-11); BUN 25 mg/dL (7-18); Bilirubin, Total 0.4 mg/dL (0.2-1.0); CO2 28.8 mmol/L (21.0-32.0); CREATININE 1.1 mg/dL (0.55-1.02); Calcium 9.5 mg/dL (8.5-10.1); Calculated LDL 76 mg/dL (<100); Chloride 101 mmol/L (98-107); Cholesterol 151 mg/dL (<200); Estimated GFR 56.81 (mL/min/1.73m2); FREE T4 1.11 ng/dL (0.76-1.46); Ferritin 127 ng/mL (8-252); Folate 17.5 ng/mL (8.6-20.0); Glucose 137 mg/dL (74-106); HDL Cholesterol 49 mg/dL (40-60); Magnesium 1.8 mg/dL (1.8-2.4); Sodium 136 mmol/L (136-145); TSH 2.29 uIU/mL (0.36-3.74); Total Protein 7.7 g/dL (6.4-8.2); Triglyceride 134 mg/dL (<150)
[2023-03-13 16:19] LABS: Vitamin D 25 Total 37.6 ng/mL (30-100)
[2023-03-14 09:59] LABS: HIV-1/2 Ag & Ab Screen Negative (Negative)
[2023-03-14 10:14] LABS: Hepatitis C Ab w Rflx HCV PCR Negative (Negative)
[2023-03-14 10:31] LABS: Lyme Ab w Rflx to Lyme Confirm Negative (Negative)
[2023-03-15 11:11] LABS: Hemoglobin A1C 7.2 % (<5.7)
[2023-03-15 18:26] LABS: Anaplasma phagocytophilum Negative (Negative); B. miyamotoi PCR Negative (Negative); Babesia divergens/MO-1 Negative (Negative); Babesia duncani Negative (Negative); Babesia microti Negative (Negative); Ehrlichia chaffeensis Negative (Negative); Ehrlichia ewingii/canis Negative (Negative); Ehrlichia muris eauclairensis Negative (Negative)
== END 2023-03-13 02:06 | disposition home or self-care (01) ==
LOC: LBO 02:10
PROVIDERS: PCP Nurse Practitioner Family; Visit Provider Nurse Practitioner Adult Health
DX: E11.9 Type 2 diabetes mellitus without complications (principal); F51.04 Psychophysiologic insomnia; Z11.59 Encounter for screening for other viral diseases; N18.30 Chronic kidney disease, stage 3 unspecified; I10 Essential (primary) hypertension
CPT/HCPCS: 36415; 80053; 80061; 82306; 86803; 87389; 87798; 82043; 82570; 82728; 82746; 83036; 83735; 84439; 84443; 85025; 86618

== ENCOUNTER → 2023-03-27 10:03 | Outpatient (BNVA) | payer MEDICARE, MEDICAID, SELFPAY | PROVIDERS: PCP Nurse Practitioner Family; Referring Provider Nurse Practitioner Family; Visit Provider Nurse Practitioner Gerontology | DX: N39.41 Urge incontinence (principal) | CPT/HCPCS: 99442 ==

== ENCOUNTER → 2023-05-03 14:59 | Outpatient (BNVA) | payer MEDICARE, MEDICAID, SELFPAY | PROVIDERS: PCP Nurse Practitioner Adult Health; Referring Provider Nurse Practitioner Family; Visit Provider Nurse Practitioner Gerontology | DX: N32.81 Overactive bladder (principal) | CPT/HCPCS: 99442 ==

== ENCOUNTER 2023-05-08 03:48 | Outpatient (CLI) | payer MEDICARE, MEDICAID, SELFPAY ==
--- NOTE | 2023-05-08 08:15 | DI.US_ITS ---
Exam(s) US PELVIS TRANSVAGINAL EXAM: US PELVIS TRANSVAGINAL CLINICAL HISTORY: F/U THICKENED ENDOMETRIUM, R93.89 TECHNIQUE: Transabdominal and transvaginal imaging was performed using standard protocol. COMPARISON: US US PELVIS TRANSVAGINAL from 10/25/2021 FINDINGS: UTERUS: Anteverted. 7.2 x 3.2 x 4.7 cm Endometrium: 6-10mm Myometrium: Unremarkable. Cervix: Nabothian cysts OVARIES: Right: Cyst or mass: None. Left: Cyst or mass: None. DOPPLER: Color: Symmetric and uniform flow to both ovaries. No hyperemia. CUL-DE-SAC: Free fluid: None. IMPRESSION: 1. Normal-appearing uterus with endometrial stripe within normal limits. 2. Unremarkable bilateral ovaries. DATA REPOSITORY:
== END 2023-05-08 04:08 ==
LOC: DI 03:48
PROVIDERS: PCP Nurse Practitioner Adult Health; Visit Provider Obstetrics & Gynecology
DX: R93.89 Abnormal findings on diagnostic imaging of other specified body structures (principal)
CPT/HCPCS: 76830; 76856

== ENCOUNTER 2023-07-06 13:53 | Outpatient (REF) | payer MEDICARE, MEDICAID, SELFPAY ==
--- NOTE | 2023-07-06 13:30 | ENDOMET_PTH ---
PATIENT: Jes Bello LOC: [facility] U#:[id number] AGE/SX: 62/F ROOM: RE07/06/[address]: Erendira Prado : 1960 BED: DIS: 07/06/2023 SPEC #: [id number] RECD: 07/06/23 16:32 STATUS: LUÍS RENilsa #: [id number] TORIN: 07/06/23 13:[address]: Erendira Prado DEPT: Surgical Specimen RECD BY: Jane Hanna ENTERED: 07/06/23 16:33 SP TYPE: Endomet OT DR: Jane Hector APRN Tissues: 1 - ENDOMETRIUM BX/CURRETTE Procedures: GROSS AND MICRO LEVEL 4 Comments: [id number]
== END 2023-07-06 13:54 | disposition home or self-care (01) ==
LOC: LBN 13:53
PROVIDERS: PCP Nurse Practitioner Adult Health; Visit Provider Obstetrics & Gynecology Gynecology
DX: N84.0 Polyp of corpus uteri (principal)
CPT/HCPCS: 88305

== ENCOUNTER → 2023-07-17 01:37 | Outpatient (CLI) | payer MEDICARE, MEDICAID, SELFPAY ==
--- NOTE | 2023-07-17 08:45 | DI.MAMMO_ITS ---
Exam(s) MAMMO SCREENING EXAM: MAMMO SCREENING CLINICAL HISTORY: screening,Z12.39. TECHNIQUE: Bilateral full field digital CC and MLO mammographic images were obtained with 3D tomosyn thesis and utilizing computer aided detection (CAD). COMPARISON: Prior mammograms were reviewed. FINDINGS: There has been no significant change in the appearance and distribution of the fibroglandular tissue. There are no new spiculated masses nor malignant appearing microcalcification groups. There is no significant architectural distortion nor skin thickening-retraction. IMPRESSION: No radiographic evidence of malignancy. BI-RADS Category 1 - Negative Breast Density - Category A - Almost entirely fatty Breast density Category C or D implies that the patient has dense breast tissue. Dense breast tissue can make it harder to find cancer on a mammogram. Dense breast tissue is also associated with an incr eased risk of breast cancer. This information about the result of the mammogram report was provided to the patient to raise their awareness. Use this report when you speak with the patient about their risks for breast cancer, which includes their family history. At that time, you may recommend additional screening tests (Ultrasoun d or MRI) as these tests may add significant information. A negative radiographic report should not delay biopsy if a dominant or clinically suspicious mass is present. Up to ten percent of cancers are not identified on mammography. A negative report may reinforce clinical impression. Adenosis and dense breasts may obscure an underlying neoplasm. False positive reports average 6 to 10%. Patient will receive a letter notifying them of these results.
== END ==
PROVIDERS: PCP Nurse Practitioner Adult Health; Visit Provider Nurse Practitioner Adult Health
DX: Z12.31 Encounter for screening mammogram for malignant neoplasm of breast (principal)
CPT/HCPCS: 77063; 77067

== ENCOUNTER → 2023-08-23 12:19 | Outpatient (BNVA) | payer MEDICARE, MEDICAID, SELFPAY | PROVIDERS: PCP Nurse Practitioner Adult Health; Referring Provider Nurse Practitioner Adult Health; Visit Provider Nurse Practitioner Gerontology | DX: N39.41 Urge incontinence (principal) | CPT/HCPCS: 99213 ==

== ENCOUNTER 2023-08-28 15:31 | Outpatient (REF) | payer MEDICARE, MEDICAID, SELFPAY ==
--- NOTE | 2023-08-28 14:40 | SKI_PTH ---
PATIENT: Jes Bello LOC: [facility] U#:[id number] AGE/SX: 62/F ROOM: RE08/28/[address]: Layne Lagos : 1960 BED: DIS: 08/28/2023 SPEC #: [id number] RECD: 08/28/23 18:43 STATUS: LUÍS RENilsa #: [id number] TORIN: 08/28/23 14:[address]: Layne Lagos DEPT: Surgical Specimen RECD BY: Jane Hanna ENTERED: 08/28/23 18:44 SP TYPE: GENIE RAMIREZ DR: Jane Hector APRN Tissues: 1 - SKIN BIOPSY(SHAVE/PUNCH) Procedures: SKIN LEVEL 4 Comments: [id number]
== END 2023-08-28 15:32 | disposition home or self-care (01) ==
LOC: LBN 15:31
PROVIDERS: PCP Nurse Practitioner Adult Health; Visit Provider Registered Nurse Maternal Newborn
DX: D22.4 Melanocytic nevi of scalp and neck (principal)
CPT/HCPCS: 88305

== ENCOUNTER 2023-10-25 18:45 | Outpatient (CLI) | payer MEDICARE, MEDICAID, SELFPAY ==
[2023-10-25 16:36] LABS: Vitamin B12 879 pg/mL (193-986)
[2023-10-28 00:29] LABS: Pyridoxal 5-Phosphate (PLP), P 44 mcg/L (5-50)
== END 2023-10-25 18:46 | disposition home or self-care (01) ==
LOC: LBO 18:45
PROVIDERS: PCP Nurse Practitioner Adult Health; Visit Provider Nurse Practitioner Adult Health
DX: E11.51 Type 2 diabetes mellitus with diabetic peripheral angiopathy without gangrene (principal); I70.209 Unspecified atherosclerosis of native arteries of extremities, unspecified extremity; R53.83 Other fatigue
CPT/HCPCS: 36415; 82607; 84207

== ENCOUNTER → 2023-11-02 14:57 | Outpatient (BNVA) | payer MEDICARE, MEDICAID, SELFPAY | PROVIDERS: PCP Nurse Practitioner Adult Health; Referring Provider Nurse Practitioner Adult Health; Visit Provider Podiatrist | DX: E11.51 Type 2 diabetes mellitus with diabetic peripheral angiopathy without gangrene (principal); Z53.29 Procedure and treatment not carried out because of patient's decision for other reasons | CPT/HCPCS: 99024 ==

== ENCOUNTER → 2023-11-29 07:40 | Outpatient (BNVA) | payer MEDICARE, MEDICAID, SELFPAY | PROVIDERS: PCP Nurse Practitioner Adult Health; Referring Provider Nurse Practitioner Adult Health; Visit Provider Nurse Practitioner Gerontology | DX: N39.41 Urge incontinence (principal); N32.81 Overactive bladder | CPT/HCPCS: 99442 ==

== ENCOUNTER → 2024-01-11 14:50 | Outpatient (BNVA) | payer MEDICARE, MEDICAID, SELFPAY | PROVIDERS: PCP Nurse Practitioner Adult Health; Referring Provider Nurse Practitioner Adult Health; Visit Provider Podiatrist | DX: N18.30 Chronic kidney disease, stage 3 unspecified (principal); E11.51 Type 2 diabetes mellitus with diabetic peripheral angiopathy without gangrene; L84 Corns and callosities; L60.3 Nail dystrophy | CPT/HCPCS: 11055; 11721 ==

== ENCOUNTER → 2024-02-14 15:51 | Outpatient (CLI) | payer MEDICARE, MEDICAID, SELFPAY ==
--- NOTE | 2024-02-14 16:23 | DI.RAD_ITS ---
Exam(s) XR ELBOW LT COMPLETE EXAM: XR ELBOW LT COMPLETE CLINICAL HISTORY: radial head tenderness fall on outstretched arm, LT ELBOW PAIN, M25.522. TECHNIQUE: 2D digital imaging was performed. COMPARISON: No exams were available for comparison FINDINGS: 3 views No evidence of acute fracture nor joint effusion. No swelling of the olecranon bursa. Radial head a nd neck appear unremarkable. Epicondyles unremarkable. No loose intra-articular bodies. IMPRESSION: No acute osseous findings. DATA REPOSITORY: RADIATION DOSE DELIVERED:
--- NOTE | 2024-02-14 16:23 | DI.RAD_ITS ---
Exam(s) XR FOREARM LT EXAM: XR FOREARM LT CLINICAL HISTORY: fall on outstretched arm, LT FOREARM PAIN, M79.632. TECHNIQUE: 2D digital imaging was performed. COMPARISON: No exams were available for comparison FINDINGS: 3 views v no evidence of acute fracture nor dislocation. No elbow joint effusion. No swelling of the olecra non bursa. There is some dorsal soft tissue swelling. No radiopaque foreign body. IMPRESSION: There is some soft tissue swelling of the distal dorsal forearm No fractures evident. DATA REPOSITORY: RADIATION DOSE DELIVERED:
--- NOTE | 2024-02-14 16:35 | DI.VRAD_ITS ---
PROCEDURE INFORMATION: Exam: XR Left Forearm Exam date and time: 02/14/2024 4:12 PM Age: 63 years old Clinical indication: Other: Fall on outstretched arm, lt forearm pain TECHNIQUE: Imaging protocol: Radiologic exam of the left forearm. Views: 2 views. COMPARISON: CR XR ELBOW LT COMPLETE 14/02/2024 16:11 FINDINGS: Bones/joints: No fracture or dislocation. No elbow effusion. Soft tissues: Soft tissue swelling of the distal forearm. IMPRESSION: No evidence for acute bony injury. If clinical symptoms persist recommend followup film in 7-10 days. Dictated and Authenticated by: Jennifer Rodrigues MD. Ordering:FLOYD Cabrales MD
--- NOTE | 2024-02-14 16:36 | DI.VRAD_ITS ---
PROCEDURE INFORMATION: Exam: XR Left Elbow Exam date and time: 02/14/2024 4:11 PM Age: 63 years old Clinical indication: Other: Radial head tenderness fall on outstretched arm, lt elbow pain TECHNIQUE: Imaging protocol: Radiologic exam of the left elbow. Views: 3 or more views. COMPARISON: No relevant prior studies available. FINDINGS: Bones/joints: No fracture or dislocation. No evidence for acute bony injury. No joint effusion. Soft tissues: Unremarkable. IMPRESSION: No evidence for acute bony injury. If clinical symptoms persist recommend followup film in 7-10 days. Dictated and Authenticated by: Jennifer Rodrigues MD. Ordering:FLOYD Cabrales MD
== END ==
PROVIDERS: PCP Nurse Practitioner Adult Health; Visit Provider Physician Assistant Medical
DX: M79.632 Pain in left forearm (principal); M25.522 Pain in left elbow
CPT/HCPCS: 73080; 73090

== ENCOUNTER → 2024-04-22 14:08 | Outpatient (BNVA) | payer MEDICARE, MEDICAID, SELFPAY | PROVIDERS: PCP Nurse Practitioner Adult Health; Referring Provider Nurse Practitioner Adult Health; Visit Provider Nurse Practitioner Gerontology | DX: N39.41 Urge incontinence (principal) | CPT/HCPCS: 51798; 99213 ==

== ENCOUNTER → 2024-05-07 15:03 | Outpatient (BNVA) | payer MEDICARE, MEDICAID, SELFPAY | PROVIDERS: PCP Nurse Practitioner Adult Health; Referring Provider Nurse Practitioner Adult Health; Visit Provider Podiatrist | DX: N18.30 Chronic kidney disease, stage 3 unspecified (principal); E11.9 Type 2 diabetes mellitus without complications; E11.51 Type 2 diabetes mellitus with diabetic peripheral angiopathy without gangrene; I70.203 Unspecified atherosclerosis of native arteries of extremities, bilateral legs; L84 Corns and callosities; E03.9 Hypothyroidism, unspecified; L60.3 Nail dystrophy | CPT/HCPCS: 11719; 17110 ==

== ENCOUNTER 2024-05-29 02:24 | Outpatient (CLI) | payer MEDICARE, MEDICAID, SELFPAY ==
--- OUTSIDE RECORDS SUMMARY | 2024-05-29 02:26 | XMS_ITS | Encounter Summary ---
Author Organization [facility] [place] [address] Care Team Providers Care Scoop Driver Name Role Phone Jane Hector ZACK Primary Care Provider [phone] Encounter Details Date Type Department Care Team (Latest Contact Info) Description 03/01/2024 Travel Social History Tobacco Use Types Packs/Day Years Used Date Smoking Tobacco: Never Smokeless Tobacco: Never Sex and Gender Information Value Date Recorded Sex Assigned at Female 08/24/2023 3:35 PM EDT Gender Identity Female 08/24/2023 3:29 PM EDT Sexual Orientation Straight 08/24/2023 3: 35 PM EDT documented as of this encounter Plan of Treatment Upcoming Encounters Date Type Department Care Team (Late st Contact Info) Description 07/04/2024 12:00 PM EDT Office Visit [facility] [place] [address] Yamile Jesus MD [facility] [place] [address] 09/09/2024 3:00 PM EST TH Visit (TeleHealth) Sleep Center at [facility] [address] [place] [address] Kaia Becker APRN [facility] [place] [address] documented as of this encounter Goals Goal Patient Goal Type Associated Problems Recent Progress Patient-Stated? Author Nutrition Goal Lifestyle No Gina Mendez RD Note: Meal Plan: Below are several meal options that we discussed. In follow-up visits, we can work on creating more meal options to fit your lifestyle. Incorporate a variety of lean proteins (examples: eggs, fish, chicken, lean protein, vegetarian proteins, and beans), non-starchy vegetables, fruits, healthy fats (examples: nuts and olive oil), and whole grains (examples: brown rice, whole wheat bread, quinoa, oatmeal). Meal Timing Brunch: 10am Lunch: 12-2pm - Meals on Wheels Dinner: 5-7pm Meal Structure Brunch: Option 1: egg (3) with vegetables (frozen peppers and frozen broccoli) with sharp cheddar or serbian cheese (if you want) with piece of fruit (20-25 grams of protein) Option 2: plain yogurt, egyptian has more protein with small amount of maple syrup with frozen berries with nuts (2-4 tbsp) (20-25 grams of protein) Option 3: rolled oats with banana and peanut butter with cinnamon with milk (microwave 2 minutes) (15-20 grams protein) Lunch: Meals on Wheels Dinner: Try to have more frozen or canned vegetables Option 1: chicken OR baked fish with frozen or canned vegetable with yellow small potato Option 2: tuna salad with 2 tbsp egyptian plain yogurt with 2 tbsp huff over spinach or lettuce If needed, Snack: All 10 grams of protein Option 1: hummus and raw vegetable and crackers (wheat thin) Option 2: cottage cheese (3/4 cup) with chives Option 3: grapes with nuts Other Nutrition Goals 60 grams of protein per day 20-25 grams of fiber per day Huff - 1 tbsp egyptian plain yogurt with 1 tbsp huff Limit Naked juice to 1 coffee cup per day (8oz) Limit the sweet treats to dark chocolate. Freeze portions of dark chocolate. Try to eat fruit as a carbohydrate instead of rice crispy cereal or bread. When having a sweet tooth: Sweet tooth: 2 tsp honey per tea Sweet tooth: fruit with peanut butter, nuts, or yogurt 8. Try pickled beets 9. Limit the frappachinos from [place], try a cold brew coffee in the hot weather Call Sleep medicine: [phone] documented as of this encounter Visit Diagnoses Not on filedocumented in this encounter Care Teams Scoop Driver Relationship Specialty Start Date End Date Jane Hector APRN [address] [place] [address] PCP - General Geriatric Medicine 07/18/23 documented as of this encounter
--- OUTSIDE RECORDS SUMMARY | 2024-05-29 02:26 | XMS_ITS | Encounter Summary ---
[place] [address] Care Team Providers Care Construction Ironworker Name Role Phone Jane Hector APRN Primary Care Provider [phone] Reason for Visit * Reason Onset Date Comments Medication Refill 01/23/2024 Encounter Details Date Type Department Care Team (Late st Contact Info) Description 01/23/2024 Refill [place] [phone] Yamile Jesus MD [facility] [place] [address] Type 2 diabetes mellitus without complication, unspecified whether retirement insulin use Social History Tobacco Use Types Packs/Day Years [...] EDT Office Visit [place] [phone] Yamile Jesus MD [facility] [address] [address] 09/09/2024 3:00 PM EST TH Visit (TeleHealth) Sleep Center at [facility] [address] [place] [id number] Kaia Becker APRN [facility] [place] [address] documented as of this encounter Goals Goal [...] and frozen broccoli) with sharp cheddar or citizen of [place] cheese (if you want) with piece of fruit (20-25 grams of protein) Option 2: plain yogurt, belgian has more protein with small amount of [...] Option 2: tuna salad with 2 tbsp belgian plain yogurt with 2 tbsp huff over spinach or lettuce If needed, Snack: All 10 grams of protein Option 1: hummus and raw vegetable and crackers (wheat thin) Option 2: cottage cheese (3/4 cup) with chives Option 3: grapes with nuts Other Nutrition Goals 60 grams of protein per day 20-25 grams of fiber per day Huff - 1 tbsp belgian plain yogurt with 1 tbsp huff Limit [...] pickled beets 9. Limit the frappachinos from [facility], try a cold brew coffee in the hot weather Call Sleep medicine: [phone] documented as of this encounter Visit Diagnoses Diagnosis Type 2 diabetes mellitus without complication, unspecified whether watcher automat long goods insulin use documented in this encounter Care Teams Construction Ironworker Relationship Specialty Start Date End Date Jane Hector APRN [address] [place] [address] PCP - General Geriatric Medicine 07/18/23 documented as of this encounter
--- OUTSIDE RECORDS SUMMARY | 2024-05-29 02:26 | XMS_ITS | Encounter Summary ---
Author Organization [facility] [place] [address] Care Team Providers Care Injection Press Operator Name Role Phone Jane Hector APRN Primary Care Provider [phone] Reason for Visit * Reason Onset Date Comments Other 04/18/2024 Encounter Details Date Type Department Care Team (Late st Contact Info) Description 04/18/2024 Telephone [place] [phone] Yamile Jesus MD [facility] [address] [place] [address] Other Social History Tobacco Use Types Packs/Day Years Used Date Smoking Tobacco: Never Smokeless Tobacco: Never Sex and Gender Information Value Date Recorded Sex Assigned at Female 08/24/2023 3:35 PM EDT Gender Identity Female 08/24/2023 3:29 PM EDT Sexual Orientation Straight 08/24/2023 3: 35 PM EDT documented as of this encounter Miscellaneous Notes * Telephone Encounter - Gina Gillespie RN - 04/18/2024 1:05 PM EDT Message sent to pt. * Telephone Encounter - Rosaura Lyles - 04/18/2024 12:56 PM EDT Patient is looking to have a referral for bariatric laperscopic surgery, per discussion at appointment. Patient request a copy for her records as well, please advise documented in this encounter Plan of Treatment Upcoming Encounters Date Type Department Care Team (Late st Contact Info) Description 07/04/2024 12:00 PM EDT Office Visit [place] [address] Yamile Jesus MD [facility] [place] [address] 09/09/2024 3:00 PM EST TH Visit (TeleHealth) Sleep Center at [facility] [address] [place] [phone] Kaia Becker APRN [facility] [place] [place] [address] documented as of this encounter Goals Goal [...] and frozen broccoli) with sharp cheddar or cayman islander cheese (if you want) with piece of fruit (20-25 grams of protein) Option 2: plain yogurt, guyanese has more protein with small amount of [...] Option 2: tuna salad with 2 tbsp guyanese plain yogurt with 2 tbsp huff over spinach or lettuce If needed, Snack: All 10 grams of protein Option 1: hummus and raw vegetable and crackers (wheat thin) Option 2: cottage cheese (3/4 cup) with chives Option 3: grapes with nuts Other Nutrition Goals 60 grams of protein per day 20-25 grams of fiber per day Huff - 1 tbsp guyanese plain yogurt with 1 tbsp huff Limit [...] pickled beets 9. Limit the frappachinos from [employer], try a cold brew coffee in the hot weather Call Sleep medicine: [phone] documented as of this encounter Visit Diagnoses Not on filedocumented in this encounter Care Teams Injection Press Operator Relationship Specialty Start Date End Date Jane Hector APRN [address] [place] [address] PCP - General Geriatric Medicine 07/18/23 documented as of this encounter
--- OUTSIDE RECORDS SUMMARY | 2024-05-29 02:26 | XMS_ITS | Encounter Summary ---
Author Organization [facility] Address [facility] [place] [address] Care Team Providers Care Upholstery Covers Inspector Name Role Phone Jane Hector APRN Primary Care Provider [phone] Reason for Visit * Reason Onset Date Comments Other 05/08/2024 Encounter Details Date Type Department Care Team (Late st Contact Info) Description 05/08/2024 Telephone [place] [address] Yamile Jesus MD [facility] [address] [place] [address] Other Social History Tobacco Use Types Packs/Day Years Used Date Smoking Tobacco: Never Smokeless Tobacco: Never Sex and Gender Information Value Date Recorded Sex Assigned at Female 08/24/2023 3:35 PM EDT Gender Identity Female 08/24/2023 3:29 PM EDT Sexual Orientation Straight 08/24/2023 3: 35 PM EDT documented as of this encounter Miscellaneous Notes * Telephone Encounter - Gina Gillespie RN - 05/09/2024 9:22 AM EDT Called pt and left detailed message. You can dispose of your Ozempic. It is best if you can do it in a medication disposal container and not the trash. You have refills of your Mounjaro at the [facility] mail order pharmacy. If it is on automatic refills it will come to you, if not you can call [facility]na[facility] and them to send it to you. She can call back with any questions. * Telephone Encounter - Jazz Danielle - 05/08/2024 3:56 PM EDT Message: Patient states her fridge is overflowing with foods. Patient wants to know if she can throw the Ozempic as this did not work since she has the latest dose of Mounjaro. Please call back and can also leave a voice message to advise. Ask caller their first and last name and relationship to the patient: self Phone: Best time to call back: anytime Ok to leave a message: y Ok to send - message: n Offered Appointment: n Message: y Call made to secretary to the vice president or nurse : n Pager: n documented in this encounter Plan of Treatment Upcoming Encounters Date Type Department Care Team (Late st Contact Info) Description 07/04/2024 12:00 PM EDT Office [place] [address] Yamile Jesus MD [facility] [place] [address] 09/09/2024 3:00 PM EST TH Visit (TeleHealth) Sleep Center at [place] [address] [place] [address] Kaia Becker APRN [facility] [place] [address] documented as of this encounter Goals Goal [...] and frozen broccoli) with sharp cheddar or colombian cheese (if you want) with piece of fruit (20-25 grams of protein) Option 2: plain yogurt, albanian has more protein with small amount of [...] Option 2: tuna salad with 2 tbsp albanian plain yogurt with 2 tbsp huff over spinach or lettuce If needed, Snack: All 10 grams of protein Option 1: hummus and raw vegetable and crackers (wheat thin) Option 2: cottage cheese (3/4 cup) with chives Option 3: grapes with nuts Other Nutrition Goals 60 grams of protein per day 20-25 grams of fiber per day Huff - 1 tbsp albanian plain yogurt with 1 tbsp huff Limit [...] pickled beets 9. Limit the frappachinos from [employer], try a cold brew coffee in the hot weather Call Sleep medicine: [phone] documented as of this encounter Visit Diagnoses Not on filedocumented in this encounter Care Teams Upholstery Covers Inspector Relationship Specialty Start Date End Date Jane Hector APRN [address] [place] [address] PCP - General Geriatric Medicine 07/18/23 documented as of this encounter
--- OUTSIDE RECORDS SUMMARY | 2024-05-29 02:26 | XMS_ITS | Encounter Summary ---
Author Organization [facility] [place] [address] Care Team Providers Care Access Developer Name Role Phone Jane Hector APRN Primary Care Provider [phone] Encounter Details Date Type Department Care Team (Late st Contact Info) Description 04/03/2024 Telephone Weight [place] [phone] Yamile Jesus MD [facility] [address] [place] [address] Social History Tobacco Use Types Packs/Day Years Used Date Smoking Tobacco: Never Smokeless Tobacco: Never Sex and Gender Information Value Date Recorded Sex Assigned at Female 08/24/2023 3:35 PM EDT Gender Identity Female 08/24/2023 3:29 PM EDT Sexual Orientation Straight 08/24/2023 3: 35 PM EDT documented as of this encounter Miscellaneous Notes * Telephone Encounter - Gina Gillespie RN - 04/04/2024 10:28 AM EDT Called and left detailed message. I can go over med list but if she has specific questions about side effects about all of her medications I recommend calling her local pharmacist that she gets most of her medication from. I know more about our medications that we prescribe but not about her other medications. There are a lot of medications out there and the pharmacist is the best person to ask. I spoke with Dr. Jesus and she does want her to increase her Mounjaro from 10 mg to 12.5 mg. The [facility] mail order pharmacy has it in stock. There are still shortages. I do know that her preferred pharmacy is [facility] [facility] in [facility] but do not know if they have the Mounjaro 12.5 mg in stock.If she calls them and finds out that they have it in stock she can let us know. Otherwise it will go to the [facility] mail order pharmacy. She can call with any other questions. * Telephone Encounter - Rocio Grant - 04/03/2024 10:47 AM EDT Message: Patient states she would like to go over her med list as she has been having strong foul smelling odor and she believes it may be due to her medication. Patient also states she thinks she may need a refill of Mounjaro but is not sure if she's staying on the same dose or increasing, she noted she is doing well on the mounjaro other than some gastrointestinal issues. Please call to advise. Ask caller their first and last name and relationship to the patient: patient Best time to call back: any Ok to leave a message: y Ok to send [facility] message: Offered Appointment: Message: y Call:n Pager:n documented in this encounter Plan of Treatment Upcoming Encounters Date Type Department Care Team (Late st Contact Info) Description 07/04/2024 12:00 PM EDT Office Visit [place] [address] Yamile Jesus MD [facility] [place] [address] 09/09/2024 3:00 PM EST TH Visit (TeleHealth) Sleep Center at [facility] [address] [place] [address] Kaia Becker APRN [facility] [place] [address] documented as of this encounter Goals Goal [...] and frozen broccoli) with sharp cheddar or estonian cheese (if you want) with piece of fruit (20-25 grams of protein) Option 2: plain yogurt, guinean has more protein with small amount of [...] Option 2: tuna salad with 2 tbsp guinean plain yogurt with 2 tbsp huff over spinach or lettuce If needed, Snack: All 10 grams of protein Option 1: hummus and raw vegetable and crackers (wheat thin) Option 2: cottage cheese (3/4 cup) with chives Option 3: grapes with nuts Other Nutrition Goals 60 grams of protein per day 20-25 grams of fiber per day Huff - 1 tbsp guinean plain yogurt with 1 tbsp huff Limit [...] pickled beets 9. Limit the frappachinos from [facility], try a cold brew coffee in the hot weather Call Sleep medicine: [phone] documented as of this encounter Visit Diagnoses Not on filedocumented in this encounter Care Teams Access Developer Relationship Specialty Start Date End Date Jane Hector APRN [address] [place] [address] PCP - General Geriatric Medicine 07/18/23 documented as of this encounter
--- OUTSIDE RECORDS SUMMARY | 2024-05-29 02:26 | XMS_ITS | Encounter Summary ---
Author Organization [place] [address] Care Team Providers Care Logistics Program Manager Name Role Phone Jane Hector APRN Primary Care Provider [phone] Reason for Visit * Reason Onset Date Comments Other 01/18/2024 Encounter Details Date Type Department Care Team (Late st Contact Info) Description 01/18/2024 Telephone [place] [address] Yamile Jesus MD [facility] [address] [facility] [address] Other Social History Tobacco Use Types Packs/Day Years Used Date Smoking Tobacco: Never Smokeless Tobacco: Never Sex and Gender Information Value Date Recorded Sex Assigned at Female 08/24/2023 3:35 PM EDT Gender Identity Female 08/24/2023 3:29 PM EDT Sexual Orientation Straight 08/24/2023 3: 35 PM EDT documented as of this encounter Miscellaneous Notes * Telephone Encounter - Gina Gillespie RN - 01/22/2024 3:33 PM EDT Sent [facility] message * Telephone Encounter - Keysha Hankins - 01/22/2024 12:34 PM EDT Jes calling in again to get an answer on how much mineral water she should be drinking. She wantsto make sure that she is not drinking to much if it is not good for her. Please let her know. A [facility] message can be sent to her of if not available on the phone leave a detailed message. * Telephone Encounter - Kylee Meyer - 01/18/2024 1:09 PM EDT Message: Ask caller their first and last name and relationship to the patient: Jes Bello Best time to call back: anytime Ok to leave a message: yes, a detailed message please Ok to send [facility] message: yes Offered Appointment: no Message: Patient calling today. States she is known to drink a lot of [place] mineral water but hasheard it is not good to drink to much. She needs to know how much is too much. Call made to pocket secretary assembler or nurse Y/N n Pager: Y/N n documented in this encounter Plan of Treatment Upcoming Encounters Date Type Department Care Team (Late st Contact Info) Description 07/04/2024 12:00 PM EDT Office Visit [place] [address] Yamile Jesus MD [facility] [place] [address] 09/09/2024 3:00 PM EST TH Visit (TeleHealth) Sleep Center at [facility] [address] [place] [address] Kaia Becker APRN [facility] [place] [place] [address] documented as of this encounter Goals Goal [...] and frozen broccoli) with sharp cheddar or austrian cheese (if you want) with piece of fruit (20-25 grams of protein) Option 2: plain yogurt, costa rican has more protein with small amount of [...] Option 2: tuna salad with 2 tbsp costa rican plain yogurt with 2 tbsp huff over spinach or lettuce If needed, Snack: All 10 grams of protein Option 1: hummus and raw vegetable and crackers (wheat thin) Option 2: cottage cheese (3/4 cup) with chives Option 3: grapes with nuts Other Nutrition Goals 60 grams of protein per day 20-25 grams of fiber per day Huff - 1 tbsp costa rican plain yogurt with 1 tbsp huff Limit [...] pickled beets 9. Limit the frappachinos from [employer], try a cold brew coffee in the hot weather Call Sleep medicine: [phone] documented as of this encounter Visit Diagnoses Not on filedocumented in this encounter Care Teams Logistics Program Manager Relationship Specialty Start Date End Date Jane Hector APRN [address] [place] [address] PCP - General Geriatric Medicine 07/18/23 documented as of this encounter
--- OUTSIDE RECORDS SUMMARY | 2024-05-29 02:26 | XMS_ITS | Clinical Summary ---
Author Organization [facility] [place] [address] Care Team Providers Care Job Training Specialist Name Role Phone Jane Hector APRN Primary Care Provider [phone] Allergies No known active allergies Medications Medication Sig Dispensed Refills Start Date End Date Status lisinopril (PRINIVIL;ZESTRIL ) 20 mg Tablet Take 20 mg by mouth daily. Active montelukast (SINGULAIR) 10 mg Tablet Take 10 mg by mouth nightly. Active buPROPion XL (Wellbutrin XL) 300 mg Tablet Extended Release 24 hr 11/15/2022 Active vilazodone (Viibryd) 20 mg Tablet 11/15/2022 Active levothyroxine (SYNTHROID) 175 mcg Tablet Take 175 mcg by mouth Daily. Active omeprazole (PriLOSEC) [address] capsuleIndication s:Gastroesophagea l reflux disease, unspecified whether esophagitis present Take 1 capsule by mouth daily. 30 capsule 11 08/11/2023 Active Eszopiclone (Lunesta) 1 mg tablet Take 1 tablet by mouth nightly. 20 tablet 12/12/2023 Active tirzepatide (Mounjaro) 12.5 mg/0.5 mL Pen InjectorIndicatio ns:Type 2 diabetes mellitus without complication, unspecified whether watermaster insulin use Inject 12.5 mg subcutaneously once a week. 2 mL 3 04/04/2024 Active tirzepatide (Mounjaro) 15 mg/0.5 mL Pen InjectorIndicatio ns:Type 2 diabetes mellitus without complication, unspecified whether watermaster insulin use Inject 15 mg subcutaneously once a week. 2 mL 3 04/30/2024 Active Active Problems Problem Noted Date Diagnosed Date Class 3 severe obesity with serious comorbidity and body mass index (BMI) of 40.0 to 44.9 in adult 12/03/2022 Hypertension 12/03/2022 Type 2 diabetes mellitus without complication Hypothyroidism 12/03/2022 CIARA (obstructive sleep apnea) 12/03/2022 Spinal stenosis at L4-L5 level 06/06/2018 Encounters Date Type Department Care Team Description 05/28/2024 Telephone [place] [address] Nany Dobson Appointment 05/23/2024 Telephone Sleep Center at [facility] [address] [place] [address] Kaia Becker APRN Other 05/22/2024 3:00 PM EDT TH Visit (TeleHealth) [place] [address] Gina Mendez, RD Adult BMI 45.0-49.9 kg/sq m 05/15/2024 Telephone [place] [address] Yamile Jesus MD 05/08/2024 Telephone [place] [address] Yamile Jesus MD Other 04/29/2024 Refill [place] [address] Yamile Jesus MD Type 2 diabetes mellitus without complication, unspecified whether watermaster insulin use 04/29/2024 Telephone [place] [address] Yamile Jesus MD Medication Refill 04/18/2024 Telephone [place] [address] Yamile Jesus MD Other 04/10/2024 3:00 PM EDT TH Visit (TeleHealth) [place] [address] Adult BMI 45.0-49.9 kg/sq m 04/04/2024 Refill [place] [address] Yamile Jesus MD Type 2 diabetes mellitus without complication, unspecified whether senior care insulin use 04/03/2024 Telephone [place] [address] Yamile Jesus MD 03/25/2024 Telephone [place] [address] Yamile Jesus MD Other 03/19/2024 Telephone [place] [address] Yamile Jesus MD Letter/Form 03/14/2024 Telephone [place] [address] Yamile Jesus MD Other 03/12/2024 Telephone [place] [address] Yamile Jesus MD Other 03/11/2024 Telephone [place] [address] Gina Gillespie, RN 03/08/2024 2:30 PM EDT Office Visit [place] [address] Yamile Jesus MD Class 3 severe obesity with serious comorbidity and body mass index (BMI) of 45.0 to 49.9 in adult, unspecified obesity type (Primary Dx); Type 2 diabetes mellitus without complication, unspecified whether senior care insulin use; Gastroesophageal reflux disease, unspecified whether esophagitis present; Hypertension, unspecified type; Mixed anxiety and depressive disorder; Hypothyroidism, unspecified type; CIARA (obstructive sleep apnea); Insomnia, unspecified type 03/08/2024 Travel 03/01/2024 Travel 02/29/2024 Telephone [place] [address] Nany Dobson Triage from Last 3 Months Family History Medical History Relation Comments Chronic Obstructive Pulmonary Disease Father Diabetes Mother Relation Status Comments Father Mother Social History Tobacco Use Types Packs/Day Years Used Date Smoking Tobacco: Never Smokeless Tobacco: Never Tobacco Cessation:Counseling Given: Not Answered Sex and Gender Information Value Date Recorded Sex Assigned at Female 08/24/2023 3:35 PM EDT Gender Identity Female 08/24/2023 3:29 PM EDT Sexual Orientation Straight 08/24/2023 3: 35 PM EDT Last Filed Vital Signs Vital Sign Reading Time Taken Comments Blood Pressure 124/63 01/10/2024 11:09 AM EDT Pulse 78 01/10/2024 11:09 AM EDT Temperature - - Respiratory Rate - - Oxygen Saturation 95% 01/10/2024 11: 09 AM EDT Inhaled Oxygen Concentration - - Weight 119.7 kg (263 lb 12.8 oz) 01/10/2024 11:09 AM EDT with coboy boots on Height 162.6 cm (5' 4) 01/10/2024 11:0 9 AM EDT Body Mass Index 45.28 01/10/2024 11:09 AM EDT Plan of Treatment Upcoming Encounters Date Type Department Care Team (Late st Contact Info) Description 07/04/2024 12:00 PM EDT Office Visit [place] [address] Yamile Jesus MD [facility] [address] [facility] [address] 09/09/2024 3:00 PM EST TH Visit (TeleHealth) Sleep Center at [facility] [address] [place] [address] Kaia Becker, SENIOR TAX ANALYST [facility] [place] [address] Health Maintenance Due Date Last Done Comments CT Colonography 1960 Colonoscopy 1960 Colorectal Cancer Screening 1960 FIT DNA 1960 FIT 1960 Sigmoidoscopy (10 year) with FIT yearly 1960 Sigmoidoscopy 1960 Pneumococcal Vaccine: At-Ris k 5-64yrs (1 of 2 - PCV) 1966 DM Opthalmology Exam 1970 DM Urine Microalbumin yearly 1970 HIV screen 1978 Hepatitis C Screening 1978 Tdap adult 1979 Tetanus vaccine 1979 HPV test 1990 PAP Smear 1990 Breast Cancer Share Decision Needed 2000 Breast Cancer screening 2000 Zoster vaccine (1 of 2) 2010 Advance Directive 2015 DM Hemoglobin A1c 01/10/2023 10/12/2022, 09/28/2022 Covid-19 Vaccine (1 - 2022-2 4 season) 2023 DM Creatinine yearly 10/12/2023 10/12/2022, 11/29/19 22 Influenza (Flu) vaccine (1 o f 1 - Influenza standard series) 06/23/2024 Lipid Screening 10/12/2027 10/12/2022 Diabetes Screening (HgbA1C o r Glucose) Discontinued 10/12/2022, 09/28/2022, 11/29/2021 Goals Goal Patient Goal Type Associated Problems Recent Progress Patient-Stated? Author Nutrition Goal Lifestyle No Gina Mendez, DANIAL Note: Meal Plan: Below are several meal [...] and frozen broccoli) with sharp cheddar or lithuanian cheese (if you want) with piece of [...] pickled beets 9. Limit the frappachinos from [employer], try a cold brew coffee in the hot weather Call Sleep medicine: [phone] Procedures Procedure Name Priority Date/Time Associated Diagnosis Comments [facility] EXTERNAL LABS 2 Routine 10/12/2022 from Last 3 Months or Most Recently Relevant to Health Maintenance Results * (ABNORMAL) [facility] Labs 2 - External (10/12/2022) [facility] Signature Cholesterol, Total 152 Triglyceride 126 HDL Cholesterol 44 LDL Cholesterol 83 Glucose 200(H) Hemoglobin A1c 8.1(H) Sodium 135(L) Potassium 4.1 Chloride 101 Carbon Dioxide 27 Blood Urea Nitrogen 28(H) Creatinine 1.1(H) Est Glomerular Filtration Rate 56.18(L) Aspartate Aminotransferase 26 Alanine Aminotransferase 45 Thyroid Stimulating Hormone 3.06 Hemoglobin 15.3 Hematocrit 43.8 White Blood Cell 9.47 Platelet 267 10/12/2022 Historical Provider MD POINT OF CARE MAHAD T ORDERABLES from Last 3 Months or Most Recently Relevant to Health Maintenance Care Teams Job Training Specialist Relationship Specialty Start Date End Date Jane Hector APRN [address] [place] [address] PCP - General Geriatric Medicine 07/18/23
--- OUTSIDE RECORDS SUMMARY | 2024-05-29 02:26 | XMS_ITS | Encounter Summary ---
[place] [address] Care Team Providers Care Classified Advertising Supervisor Name Role Phone Jane Hector APRN Primary Care Provider [phone] Reason for Visit * Reason Onset Date Comments Other 02/06/2024 Patient Navigati on Encounter Details Date Type Department Care Team (Late st Contact Info) Description 02/06/2024 Telephone [place] [address] Dunia Brasher Other (Patient Navigation/) Social History Tobacco Use Types Packs/Day Years Used Date Smoking Tobacco: Never Smokeless Tobacco: Never Sex and Gender Information Value Date Recorded Sex Assigned at Female 08/24/2023 3:35 PM EDT Gender Identity Female 08/24/2023 3:29 PM EDT Sexual Orientation Straight 08/24/2023 3: 35 PM EDT documented as of this encounter Miscellaneous Notes * Telephone Encounter - Dunia Brasher - 02/08/2024 2:05 PM EDT Called patient, who had returned this advertising copy writer's call and left a message. The patient, in answer to this advertising copy writer's question about the patient's experience in the Weight and Wellness Program, and specifically in regards to issues with communicating with the team, stated the following: Likes her provider, Dr. Yamile Jesus; finds her nice and thorough. Does not like that she cannot talk to Dr. Jesus by phone. She states she is used to being ableto do this with providers in other practices in [place]. Understands that there may be some short kind of video call that will be available in the future. This advertising copy writer agreed to inquire about this. It sounded like the patient was not referencing a scheduled telehealth appointment. Is very unhappy that she cannot get the medication, Mounjaro, due to national shortages. She doesn't like using Ozempic as well. We discussed that she left a message for Dr. Jesus yesterday (02/07/24) with an update about her recently gaining weight again on Ozempic. She stated that this was more of a status report than a message needing a reply. We discussed the importance for a respectful exchange between care providers, staff and patients, in all methods of communication. Generally, unless truly urgent, we ask that patients expect a turn around of up to 72 hours following calling or sending a myD-H message. This advertising copy writer asked the patient for understanding and patience in her communication with Weight and Wellness staff and providers. PLAN: Encouraged the patient to get in touch with this advertising copy writer if she does have communication issuesin the future. Will also ask the Weight and Wellness care team to document any issues going forward, which this advertising copy writer or Dr. Blackwood can then address. The patient is welcome to contact this advertising copy writer anytime. Dunia Brasher MA Patient Navigator Section of Gastroenterology & Hepatology * Telephone Encounter - Rosaura Lyles - 02/07/2024 1:04 PM EDT Patient called into the office regarding messages that were left for her. Patient is wondering whatthe calls are about and if this pertains to the Weight and Wellness Department. Patient states she was to busy to speak with Dunia now but would like to know what the calls are regarding. Patient also stated that she has not had time to go on her portal to read the messages. * Telephone Encounter - Dunia Brasher - 02/07/2024 9:37 AM EDT Left another message for patient and requested she return call with a good time to reach her. Dunia Brasher MA Patient Navigator - Section of Gastroenterology & Hepatology/[facility] * Telephone Encounter - Dunia Brasher - 02/06/2024 2:25 PM EDT Left message for patient, who is followed in the Weight and Wellness department, by Dr. Yamile Jesus. PLAN: Will send patient a myD-H message and will try her again later this week. Dunia Brasher MA Patient Navigator Section of Gastroenterology & Hepatology/[facility] documented in this encounter Plan of Treatment Upcoming Encounters Date Type Department Care Team (Late st Contact Info) Description 07/04/2024 12:00 PM EDT Office Visit [place] [address] Yamile Jesus MD [facility] [place] [address] 09/09/2024 3:00 PM EST TH Visit (TeleHealth) Sleep Center at [address] [place] [address] Kaia Becker APRN [facility] [place] [address] documented as of this encounter Goals Goal [...] and frozen broccoli) with sharp cheddar or venezuelan cheese (if you want) with piece of fruit (20-25 grams of protein) Option 2: plain yogurt, pap[place] guinean has more protein with small amount [...] Option 2: tuna salad with 2 tbsp pap[place]ine[place] plain yogurt with 2 tbsp huff over spinach or lettuce If needed, Snack: All 10 grams of protein Option 1: hummus and raw vegetable and crackers (wheat thin) Option 2: cottage cheese (3/4 cup) with chives Option 3: grapes with nuts Other Nutrition Goals 60 grams of protein per day 20-25 grams of fiber per day Huff - 1 tbsp pap[place] guinean plain yogurt with 1 tbsp huff [...] pickled beets 9. Limit the frappachinos from [employer], try a cold brew coffee in the hot weather Call Sleep medicine: [phone] documented as of this encounter Visit Diagnoses Not on filedocumented in this encounter Care Teams Classified Advertising Supervisor Relationship Specialty Start Date End Date Jane Hector APRN [address] [place] [address] PCP - General Geriatric Medicine 07/18/23 documented as of this encounter
--- OUTSIDE RECORDS SUMMARY | 2024-05-29 02:26 | XMS_ITS | Encounter Summary ---
Author Organization [facility] [place] [address] Care Team Providers Care Clinical Writer Name Role Phone Jane Hector APRN Primary Care Provider [phone] Encounter Details Date Type Department Care Team (Late st Contact Info) Description 05/15/2024 Telephone [place] [address] Yamile Jesus MD [facility] [address] [facility] [place], [place] [address] Social History Tobacco Use Types Packs/Day Years Used Date Smoking Tobacco: Never Smokeless Tobacco: Never Sex and Gender Information Value Date Recorded Sex Assigned at Female 08/24/2023 3:35 PM EDT Gender Identity Female 08/24/2023 3:29 PM EDT Sexual Orientation Straight 08/24/2023 3: 35 PM EDT documented as of this encounter Miscellaneous Notes * Telephone Encounter - Gina Gillespie RN - 05/23/2024 3:05 PM EDT [facility] message sent to pt * Telephone Encounter - Rose Grant - 05/22/2024 4:14 PM EDT Message: Patient calling about referral again, states she is confused about a letter that was sent that she cannot find anymore. She states she got a message 2 months ago asking if she would prefer in person or telehealth, she stated in person, then did not get a response. She states she cannot sleep and is frustrated with not hearing back. Please call to advise. Ask caller their first and last name and relationship to the patient: patient Best time to call back: any Ok to leave a message: y Ok to send [facility] message: y Offered Appointment: MA/Nurse/Leon contacted via: Message: Call: Pager: * Telephone Encounter - Priti Billingsley - 05/15/2024 4:23 PM EDT Message: Patient states they can not sleep and provider was suppose to refer her to [facility]? Unsure if this is the sleep center. Patient can not sleep and needs relief shai Ask caller their first and last name and relationship to the patient: self Best time to call back: any time Ok to leave a message: yes Ok to send [facility] message: no Offered Appointment: Message: Call made to personal secretary or nurse Y/N Pager: Y/N documented in this encounter Plan of Treatment Upcoming Encounters Date Type Department Care Team (Late st Contact Info) Description 07/04/2024 12:00 PM EDT Office Visit [place] [address] Yamile Jesus MD [facility] [place] [address] 09/09/2024 3:00 PM EST TH Visit (TeleHealth) Sleep Center at [facility] [address] [place] [address] Kaia Becker APRN [facility] [place] [address] documented as of this encounter Goals Goal [...] and frozen broccoli) with sharp cheddar or burundian cheese (if you want) with piece of fruit (20-25 grams of protein) Option 2: plain yogurt, kiswahili has more protein with small amount of [...] Option 2: tuna salad with 2 tbsp kiswahili plain yogurt with 2 tbsp huff over spinach or lettuce If needed, Snack: All 10 grams of protein Option 1: hummus and raw vegetable and crackers (wheat thin) Option 2: cottage cheese (3/4 cup) with chives Option 3: grapes with nuts Other Nutrition Goals 60 grams of protein per day 20-25 grams of fiber per day Huff - 1 tbsp kiswahili plain yogurt with 1 tbsp huff Limit [...] pickled beets 9. Limit the frappachinos from [employer], try a cold brew coffee in the hot weather Call Sleep medicine: [phone] documented as of this encounter Visit Diagnoses Not on filedocumented in this encounter Care Teams Clinical Writer Relationship Specialty Start Date End Date Jane Hector APRN [address] [place] [address] PCP - General Geriatric Medicine 07/18/23 documented as of this encounter
--- OUTSIDE RECORDS SUMMARY | 2024-05-29 02:26 | XMS_ITS | Encounter Summary ---
[place] [address] Care Team Providers Care Support Associate Name Role Phone Jane Hector APRN Primary Care Provider [phone] Reason for Visit * Reason Onset Date Comments Other 02/07/2024 Encounter Details Date Type Department Care Team (Late st Contact Info) Description 02/07/2024 Telephone [place] [address] Yamile Jesus MD [facility] [address] [facility] [address] Other Social History Tobacco Use Types Packs/Day Years Used Date Smoking Tobacco: Never Smokeless Tobacco: Never Sex and Gender Information Value Date Recorded Sex Assigned at Female 08/24/2023 3:35 PM EDT Gender Identity Female 08/24/2023 3:29 PM EDT Sexual Orientation Straight 08/24/2023 3: 35 PM EDT documented as of this encounter Miscellaneous Notes * Telephone Encounter - Rosaura Lyles - 02/07/2024 1:10 PM EDT Patient called in and wanted the provider to know that she is due to take her second dose of Ozempic today, but she is still feeling hungry and continues to gain weight. Patient states she has been going to the gym. Please advise documented in this encounter Plan of Treatment Upcoming Encounters Date Type Department Care Team (Late st Contact Info) Description 07/04/2024 12:00 PM EDT Office Visit [place] [address] Yamile Jesus MD [facility] [place] [address] 09/09/2024 3:00 PM EST TH Visit (TeleHealth) Sleep Center at [facility] [address] [place] [address] Kaia Becker APRN [facility] [place] [address] documented as of this encounter Goals Goal [...] and frozen broccoli) with sharp cheddar or south african cheese (if you want) with piece of fruit (20-25 grams of protein) Option 2: plain yogurt, iraqi has more protein with small amount of [...] Option 2: tuna salad with 2 tbsp iraqi plain yogurt with 2 tbsp huff over spinach or lettuce If needed, Snack: All 10 grams of protein Option 1: hummus and raw vegetable and crackers (wheat thin) Option 2: cottage cheese (3/4 cup) with chives Option 3: grapes with nuts Other Nutrition Goals 60 grams of protein per day 20-25 grams of fiber per day Huff - 1 tbsp iraqi plain yogurt with 1 tbsp huff Limit [...] in the hot weather Call Sleep medicine: [phone] documented as of this encounter Visit Diagnoses Not on filedocumented in this encounter Care Teams Support Associate Relationship Specialty Start Date End Date Jane Hector APRN [address] [place] [address] PCP - General Geriatric Medicine 07/18/23 documented as of this encounter
--- OUTSIDE RECORDS SUMMARY | 2024-05-29 02:26 | XMS_ITS | Encounter Summary ---
[place] [address] Care Team Providers Care Bank Secrecy Act Officer Name Role Phone Jane Hector APRN Primary Care Provider [phone] Reason for Visit * Reason Onset Date Comments Letter/Form 03/19/2024 Encounter Details Date Type Department Care Team (Late st Contact Info) Description 03/19/2024 Telephone [place] [address] [facility] [address] [place] [address] Letter/Form Social History Tobacco Use Types Packs/Day Years Used Date Smoking Tobacco: Never Smokeless Tobacco: Never Sex and Gender Information Value Date Recorded Sex Assigned at Female 08/24/2023 3:35 PM EDT Gender Identity Female 08/24/2023 3:29 PM EDT Sexual Orientation Straight 08/24/2023 3: 35 PM EDT documented as of this encounter Miscellaneous Notes * Telephone Encounter - Kenya Bui Payt - 03/19/2024 10:19 AM EDT Message: Patient is returning phone call from [employer] patient message sent this morning. She states the letter from 2022 is not what she was referring to. She said it was a letter from Dr Edin ngo to her insomnia and psychosis. She states she saw it in the portal following her appt on 03/08/24 and now she can't find it. I looked as well and have not been able to locate the letter she's referring to. Please see if letter can be located and uploaded to the patient portal and have a hard copy mailed to her home address on file. Ask caller their first and last name and relationship to the patient: Self Best time to call back: any Ok to leave a message: yes Ok to send [facility] message: yes Offered Appointment: no Message: yes Call made to secretary board of commissioners or nurse: yes Pager: no documented in this encounter Plan of Treatment Upcoming Encounters Date Type Department Care Team (Late st Contact Info) Description 07/04/2024 12:00 PM EDT Office Visit [place] [address] [facility] [place] [address] 09/09/2024 3:00 PM EST TH Visit (TeleHealth) Sleep Center at [address] [place] [address] [facility] [place] [address] documented as of this encounter Goals Goal [...] and frozen broccoli) with sharp cheddar or tongan cheese (if you want) with piece of fruit (20-25 grams of protein) Option 2: plain yogurt, azerbaijani has more protein with small amount of [...] Option 2: tuna salad with 2 tbsp azerbaijani plain yogurt with 2 tbsp huff over spinach or lettuce If needed, Snack: All 10 grams of protein Option 1: hummus and raw vegetable and crackers (wheat thin) Option 2: cottage cheese (3/4 cup) with chives Option 3: grapes with nuts Other Nutrition Goals 60 grams of protein per day 20-25 grams of fiber per day Huff - 1 tbsp azerbaijani plain yogurt with 1 tbsp huff Limit [...] in the hot weather Call Sleep medicine: [phone] documented as of this encounter Visit Diagnoses Not on filedocumented in this encounter Care Teams Bank Secrecy Act Officer Relationship Specialty Start Date End Date Jane Hector APRN [facility] [place] [address] PCP - General Geriatric Medicine 07/18/23 documented as of this encounter
--- OUTSIDE RECORDS SUMMARY | 2024-05-29 02:26 | XMS_ITS | Encounter Summary ---
[place] [address] Care Team Providers Care Cable Mechanic Name Role Phone Jane Hector APRN Primary Care Provider [phone] Reason for Visit * Reason Onset Date Comments Appointment 01/22/2024 Encounter Details Date Type Department Care Team (Late st Contact Info) Description 01/22/2024 Telephone [place] [phone] Nany Dobson Appointment Social History Tobacco Use Types Packs/Day Years Used Date Smoking Tobacco: Never Smokeless Tobacco: Never Sex and Gender Information Value Date Recorded Sex Assigned at Female 08/24/2023 3:35 PM EDT Gender Identity Female 08/24/2023 3:29 PM EDT Sexual Orientation Straight 08/24/2023 3: 35 PM EDT documented as of this encounter Miscellaneous Notes * Telephone Encounter - Nany Dobson - 01/22/2024 1:38 PM EDT Spoke with patient about scheduling appointment(s) with Weight and Wellness provider(s) however shewas heading out the door at the time of call. Call Center Scheduling: Please schedule appointment(s) from recalls placed in patients chart. Recall(s) in for RD (Registered Dietitians) - f/u recall in chart to schedule with any RD for 60 min follow up due to Selam Andrea being out on leave (see provider page for details). Please see in recall if the appointment can be in clinic or virtual, sometimes with certain providers and the excepted date of the appointment. In the case that an appointment is scheduling further out then excepted date please schedule first available and place that appointment on the waitlist. documented in this encounter Plan of Treatment Upcoming Encounters Date Type Department Care Team (Late st Contact Info) Description 07/04/2024 12:00 PM EDT Office Visit Weight and Wellness at [facility] [place] [address] Yamile Jesus MD [facility] [place] [address] 09/09/2024 3:00 PM EST TH Visit (TeleHealth) Sleep Center at [facility] [address] [place] [phone] Kaia Becker APRN [facility] [place] [address] documented as of this encounter Goals Goal [...] and frozen broccoli) with sharp cheddar or bangladeshi cheese (if you want) with piece of fruit (20-25 grams of protein) Option 2: plain yogurt, guamanian has more protein with small amount of [...] Option 2: tuna salad with 2 tbsp guamanian plain yogurt with 2 tbsp huff over spinach or lettuce If needed, Snack: All 10 grams of protein Option 1: hummus and raw vegetable and crackers (wheat thin) Option 2: cottage cheese (3/4 cup) with chives Option 3: grapes with nuts Other Nutrition Goals 60 grams of protein per day 20-25 grams of fiber per day Huff - 1 tbsp guamanian plain yogurt with 1 tbsp huff Limit [...] pickled beets 9. Limit the frappachinos from [employer], try a cold brew coffee in the hot weather Call Sleep medicine: [phone] documented as of this encounter Visit Diagnoses Not on filedocumented in this encounter Care Teams Cable Mechanic Relationship Specialty Start Date End Date Jane Hector APRN [address] [facility] [place] [address] PCP - General Geriatric Medicine 07/18/23 documented as of this encounter
--- OUTSIDE RECORDS SUMMARY | 2024-05-29 02:26 | XMS_ITS | Encounter Summary ---
[place] [address] Care Team Providers Care Welder Fitter Apprentice Name Role Phone Jane Hector APRN Primary Care Provider [phone] Encounter Details Date Type Department Care Team (Late st Contact Info) Description 01/18/2024 Telephone [place] [phone] Nany Dobson Social History Tobacco Use Types Packs/Day Years Used Date Smoking Tobacco: Never Smokeless Tobacco: Never Sex and Gender Information Value Date Recorded Sex Assigned at Female 08/24/2023 3:35 PM EDT Gender Identity Female 08/24/2023 3:29 PM EDT Sexual Orientation Straight 08/24/2023 3: 35 PM EDT documented as of this encounter Miscellaneous Notes * Telephone Encounter - Nany Dobson - 01/18/2024 10:57 AM EDT Message: Jes called in requesting to speak with Dr. Jesus today. She states there is a sleep note in her chart that she has discussed that needs to be removed from her chart and that this is an old 25 yr old diagnosis and she states she has not symptoms of sleep apnea. She also states this is caused her prejudice with other providers with her care and is causing issues with getting prescribed a sleep aid by Dr Zarate. Note- In chart patient was last seen by sleep med at [facility] on 12/12/2023. Ask caller their first and last name and relationship to the patient: Jes Bello Best time to call back: any Ok to leave a message: y Ok to send [facility] message: y Offered Appointment: no Message: y Call made to press secretary or nurse Y/N n Pager: Y/N n documented in this encounter Plan of Treatment Upcoming Encounters Date Type Department Care Team (Late st Contact Info) Description 07/04/2024 12:00 PM EDT Office Visit [place] [address] Yamile Jesus MD [facility] [place] [address] 09/09/2024 3:00 PM EST TH Visit (TeleHealth) Sleep Center at [facility] [address] [place] [phone] Kaia Bekcer APRN [facility] [place] [address] documented as of this encounter Goals Goal [...] and frozen broccoli) with sharp cheddar or emirati cheese (if you want) with piece of [...] in the hot weather Call Sleep medicine: [phone] documented as of this encounter Visit Diagnoses Not on filedocumented in this encounter Care Teams Welder Fitter Apprentice Relationship Specialty Start Date End Date Jane Hector APRN [facility] [place] [address] PCP - General Geriatric Medicine 07/18/23 documented as of this encounter
--- OUTSIDE RECORDS SUMMARY | 2024-05-29 02:26 | XMS_ITS | Encounter Summary ---
Author Organization [facility] [address] Care Team Providers Care Inventory Control Clerk Name Role Phone Jane Hector APRN Primary Care Provider [phone] Reason for Visit * Reason Onset Date Comments Other 03/25/2024 Encounter Details Date Type Department Care Team (Late st Contact Info) Description 03/25/2024 Telephone [place] [address] Yamile Jesus MD [facility] [address] [place] [address] Other Social History Tobacco Use Types Packs/Day Years Used Date Smoking Tobacco: Never Smokeless Tobacco: Never Sex and Gender Information Value Date Recorded Sex Assigned at Female 08/24/2023 3:35 PM EDT Gender Identity Female 08/24/2023 3:29 PM EDT Sexual Orientation Straight 08/24/2023 3: 35 PM EDT documented as of this encounter Miscellaneous Notes * Telephone Encounter - Gina Gillespie RN - 03/26/2024 3:32 PM EDT Spoke with pt. She is having lots of general indigestion with belching, some reflux. She has been taking the Prilosec 40 mg and the pharmacist said she could take it twice a day with the doctors permission. She did it one night and it helped. Let her know that Dr. Jesus wants her to try Prilosec 40 mg in the morning and Pepcid (famotidine) 20 mg at night. It is over the counter. If that's not enough then we can go to Prilosec 40 mg BID. * Telephone Encounter - Gina Gillespie RN - 03/26/2024 1:39 PM EDT Called and left detailed message. Dr. Jesus wants to know a little more about her symptoms so if she could give us a call and let us know that would be great. First Dr. Jesus wants her to try Prilosec 40 mg in the morning and Pepcid 20 mg at night. If that's not enough then we can go to Prilosec 40 mg BID * Telephone Encounter - Jazz Danielle - 03/25/2024 3:31 PM EDT Message: Patient is hoping to discuss with the nurse in regards to Prilosec medication, if she has to take this twice a day or not. Pharmacy advised that patient can go up to 40mg or can take Mounjaro on higher dose. Please advice. Ask caller their first and last name and relationship to the patient: self Best time to call back: anytime Ok to leave a message: y Ok to send - message: n Offered Appointment: n Message: y Call made to litigation secretary or nurse : n Pager: n documented in this encounter Plan of Treatment Upcoming Encounters Date Type Department Care Team (Late st Contact Info) Description 07/04/2024 12:00 PM EDT Office Visit [place] [address] Yamile Jesus MD [facility] [address] [place] [address] 09/09/2024 3:00 PM EST TH Visit (TeleHealth) Sleep Center at [facility] [address] [place] [phone] Kaia Becker APRN [facility] [place] [address] documented as of this encounter Goals Goal [...] and frozen broccoli) with sharp cheddar or beninese cheese (if you want) with piece of fruit (20-25 grams of protein) Option 2: plain yogurt, pitcairn islander has more protein with small amount of [...] Option 2: tuna salad with 2 tbsp pitcairn islander plain yogurt with 2 tbsp huff over spinach or lettuce If needed, Snack: All 10 grams of protein Option 1: hummus and raw vegetable and crackers (wheat thin) Option 2: cottage cheese (3/4 cup) with chives Option 3: grapes with nuts Other Nutrition Goals 60 grams of protein per day 20-25 grams of fiber per day Huff - 1 tbsp pitcairn islander plain yogurt with 1 tbsp huff Limit [...] pickled beets 9. Limit the frappachinos from [facility], try a cold brew coffee in the hot weather Call Sleep medicine: [phone] documented as of this encounter Visit Diagnoses Not on filedocumented in this encounter Care Teams Inventory Control Clerk Relationship Specialty Start Date End Date Jane H[place] [address] [place] [address] PCP - General Geriatric Medicine 07/18/23 documented as of this encounter
--- OUTSIDE RECORDS SUMMARY | 2024-05-29 02:26 | XMS_ITS | Encounter Summary ---
[place] [address] Care Team Providers Care Contact Center Representative Name Role Phone Jane Hector APRN Primary Care Provider [phone] Reason for Visit * Reason Onset Date Comments Triage 02/29/2024 Encounter Details Date Type Department Care Team (Late st Contact Info) Description 02/29/2024 Telephone [place] [address] Nany Dobson Triage Social History Tobacco Use Types Packs/Day Years Used Date Smoking Tobacco: Never Smokeless Tobacco: Never Sex and Gender Information Value Date Recorded Sex Assigned at Female 08/24/2023 3:35 PM EDT Gender Identity Female 08/24/2023 3:29 PM EDT Sexual Orientation Straight 08/24/2023 3: 35 PM EDT documented as of this encounter Miscellaneous Notes * Telephone Encounter - Amanda Rolle - 03/06/2024 12:05 PM EDT Message: Patient calling in regarding sleep issues and myDH message from provider on 03/06/24. Patient states her PCP will not prescribe any more Lunesta as she is against sleeping pills. Patient would like to explore follow up with a new Sleep Medicine provide but wants to discuss with Dr. Jesus first at appointment on 03/08/24 (states provider mentioned a specific sleep med doctor that she cannot remember). Patient is still unable to get into her myDH at this time so please call with any questions or concerns. Ask caller their first and last name and relationship to the patient: Jes Bello Best time to call back: any Ok to leave a message: y Ok to send my- message: n Offered Appointment: n/a Message: y Call:n Pager:n * Telephone Encounter - Nany Dobson - 02/29/2024 10:42 AM EDT Message: Jes called in about her sleep issues and stated in her last appt with Dr. Edin triana going to speak with another provider about medication (office note from 01/09 provider was goingto f/u with PCP about Lunesta). Jes does not have a follow up scheduled for sleep med and in a myDH note from 01/05 Sleep Med Gissell a referral for CBTi for cognitive behavioral therapy was offered and it medication was discussed. Patient has appt in [facility] on 03/08 but is not sleeping and is currently sick and feels her sleep issueneeds addressed sooner. Ask caller their first and last name and relationship to the patient: Jes Bello Best time to call back: any Ok to leave a message: y Ok to send my- message: no- current internet issues Offered Appointment: scheduled for 03/08 already Message: y Call made to racing secretary and handicapper or nurse Y/N n Pager: Y/N n documented in this encounter Plan of Treatment Upcoming Encounters Date Type Department Care Team (Late st Contact Info) Description 07/04/2024 12:00 PM EDT Office Visit [place] [address] Yamile Jesus MD [facility] [address] [place] [address] 09/09/2024 3:00 PM EST TH Visit (TeleHealth) Sleep Center at [facility] [address] [place] [address] Kaia Becker, ZACK [facility] [place] [address] documented as of this encounter Goals Goal [...] and frozen broccoli) with sharp cheddar or palestinian cheese (if you want) with piece of fruit (20-25 grams of protein) Option 2: plain yogurt, english has more protein with small amount of [...] Option 2: tuna salad with 2 tbsp english plain yogurt with 2 tbsp huff over spinach or lettuce If needed, Snack: All 10 grams of protein Option 1: hummus and raw vegetable and crackers (wheat thin) Option 2: cottage cheese (3/4 cup) with chives Option 3: grapes with nuts Other Nutrition Goals 60 grams of protein per day 20-25 grams of fiber per day Huff - 1 tbsp english plain yogurt with 1 tbsp huff Limit [...] pickled beets 9. Limit the frappachinos from [facility], try a cold brew coffee in the hot weather Call Sleep medicine: [phone] documented as of this encounter Visit Diagnoses Not on filedocumented in this encounter Care Teams Contact Center Representative Relationship Specialty Start Date End Date Jane Hector APRN [address] [place] [address] PCP - General Geriatric Medicine 07/18/23 documented as of this encounter
--- OUTSIDE RECORDS SUMMARY | 2024-05-29 02:26 | XMS_ITS | Encounter Summary ---
Author Organization [facility] [place] [address] Care Team Providers Care Physical Metallurgist Name Role Phone Jane Hector APRN Primary Care Provider [phone] Encounter Details Date Type Department Care Team (Late st Contact Info) Description 05/22/2024 3:00 PM EDT TH Visit (TeleHealth) [place] [phone] Gina Mendez RD [facility] [place] [address] Adult BMI 45.0-49.9 kg/sq m Social History Tobacco Use Types Packs/Day Years Used Date Smoking Tobacco: Never Smokeless Tobacco: Never Sex and Gender Information Value Date Recorded Sex Assigned at Female 08/24/2023 3:35 PM EDT Gender Identity Female 08/24/2023 3:29 PM EDT Sexual Orientation Straight 08/24/2023 3: 35 PM EDT documented as of this encounter Patient Instructions * Patient Instructions* Gina Mendez RD - 05/22/2024 3:00 PM EDT It was great to chat with you, Jes. Below are goals discussed today as well as in past visits. Please reach out with a Mob[employer] message if you have any questions or concerns. Thank you, Gina Mendez RD, LD Goals Nutrition Goal Meal Plan: Below are several meal options that we discussed. In follow-up visits, we can work on creating more meal options to fit your lifestyle. Incorporate a variety of lean proteins (examples: eggs, fish, chicken, lean protein, vegetarian proteins, and beans), non-starchy vegetables, fruits, hea lthy fats (examples: nuts and olive oil), and whole grains (examples: brown rice, whole wheat bread, quinoa, oatmeal). Meal Timing Brunch: 10am Lunch: 12-2pm - Meals on Wheels Dinner: 5-7pm Meal Structure Brunch: Option 1: egg (3) with vegetables (frozen peppers and frozen broccoli) with sharp cheddar or zambian cheese (if you want) with piece of fruit (20-25 grams of protein) Option 2: plain yogurt, cypriot has more protein with small amount of maple syrup with frozen berrieswith nuts (2-4 tbsp) (20-25 grams of protein) Option 3: rolled oats with banana and peanut butter with cinnamon with milk (microwave 2 minutes) (15-20 grams protein) Lunch: Meals on Wheels Dinner: Try to have more frozen or canned vegetables Option 1: chicken OR baked fish with frozen or canned vegetable with yellow small potato Option 2: tuna salad with 2 tbsp cypriot plain yogurt with 2 tbsp huff over spinach or lettuce If needed, Snack: All 10 grams of protein Option 1: hummus and raw vegetable and crackers (wheat thin) Option 2: cottage cheese (3/4 cup) with chives Option 3: grapes with nuts Other Nutrition Goals 60 grams of protein per day 20-25 grams of fiber per day Huff - 1 tbsp cypriot plain yogurt with 1 tbsp huff Limit [...] beets 9. Limit the frappachinos from [facility], try a cold brew coffee in the hot weather Call Sleep medicine: [phone] documented in this encounter Progress Notes * Gina Mendez RD - 05/22/2024 3:00 PM EDTSphilip: [facility] RD Follow-up Visit Nutrition Intervention for Weight Management Follow-up RD visit with Jes BelloCARO 1960 Location: [place] [facility] care team: Dr. Jesus Weight Today: Wt Readings from Last 3 Encounters: 01/10/24 119.7 kg (263 lb 12.8 oz) 11/01/23 117.9 kg (260 lb) 10/06/23 118.8 kg (261 lb 14.4 oz) BMI Readings from Last 3 Encounters: 01/10/24 45.28 kg/m?? 11/01/23 44.63 kg/m?? 10/06/23 44.96 kg/m?? Pertinent Anti-Obesity Medications: tirzepatide - 12.5 mg // bupropion Interview: It was a [facility] speaking with [facility]. Jes was able to get mounjaro - 12.5mg. She is still challenged with eating her fresh fruits and vegetables before they spoil. We discussed options of frozen, canned, and pickled vegetables. She goes to the grocery store once every 2-3 weeks. She often eats 2-3 meals per day, with sporadic meals because she does not like to cook. She relies on meals on wheels for one meal. She drinks whole milk every day. Today, we discussed Jes's questions on her meal plan. She wanted advice for uriva for brain health (uric acid supplement), but RD deferred talking about this supplement and told her to seek advice from PCP. Jes is still having trouble with sleeping and desires to have a sleep consultation. RD gave Jes the number for sleep medicine. Food Tracking: Jes expresses interest in tracking and weighing. However, this is not something that we covered. Typical Dietary Intake: Jes typically has 2 meals, depending on hunger. Breakfast: eggs with nuts (occasionally) Lunch: meals on wheels - green beans, mashed potato with gravy, and beef tips with gravy Time: 12-2pm Dinner: 3/4 cup black beans with 8oz white fish OR popcorn with nutritional yeast OR chicken with canned corn Time: 5-7pm Location: home Eating after dinner? Not usually, maybe a piece of banana Eating in the middle of the night? No Typical Beverages: [x] water - (total: [] sugar-free additive [x] coffee - 2 cups - not often in hot weather [x] Cream - milk [] Sugar [] sugar-free additive [x] tea - green tea [] Cream [] Sugar [] sugar-free additive [x] diet soda or other - pepsi - rarely [] regular soda [x] Juice or other sugar-sweetened - margo naked fruit juice [x] Milk - 8-12oz, whole milk, not every day [] Alcohol - (How much? ) Appetite/Hunger: [] Poor appetite r/t [] Currently well-managed [x] Not managed (see interview) Foods that Jes Harjinder Bello is willing to eat or try Protein: [x] chicken [] beef [] pork [x] White fish [] salmon [x] tuna [] tofu [x] beans [x] hummus[x] nuts [x] eggs [x] Other: lentils Vegetables: [x] carrots [x] cucumbers [x] potatoes [x] broccoli [] Green beans [x] mushrooms [] lettuce [x] squash [x] Other: radish, spinach, zucchini, cauliflower rice Fruit: All Dairy: [x] cheese [] milk [x] yogurt [] Other: Grain: All Nutrition topics covered today: [] Eating an appropriate amount of food for your body, limitations of caloric restriction and undereating [] Drinking an appropriate amount of fluids for your body [] Grazing / skipping / restricting [] Eating in the absence of hunger [] Scheduled times / frequency of eating [] Reduce highly processed foods, refined carbohydrates, in favor of whole foods [] Heart healthy fats [] Reduce sweet taste in your diet (whether by sugar or non-nutritive sweeteners) [x] Increase fruits and non-starchy veggies [] Increase fiber through f&v, nuts/seeds, whole grains, legumes (goal of 22-28 g/day women ; 28-34 g/day men) [] Adequate protein intake (handout provided? [] ) [] Meal planning [] Reduce sodium intake to goal of 2300 mg or less per day, 1500 mg lower target with cardiovascular risk factors or disease Nutrition Assessment: Excess intake of calories.- Often happening, due to gravy, simple carbohydrates, milk, juices. Excess intake of processed foods and refined carbohydrates. - incomplete Inadequate protein intake. - Patient is prioritizing fish often, which is helping with her protein goals. She is meeting goals more often. Inadequate fiber intake. - incomplete Barriers: Availability of foods and inability to cook. Nutrition Goals updated today: Meal Plan: Below are several meal options that we discussed. In follow-up visits, we can work on creating more meal options to fit your lifestyle. Incorporate a variety of lean proteins (examples: eggs, fish, chicken, lean protein, vegetarian proteins, and beans), non-starchy vegetables, fruits, hea lthy fats (examples: nuts and olive oil), and whole grains (examples: brown rice, whole wheat bread, quinoa, oatmeal). Meal Timing Brunch: 10am Lunch: 12-2pm - Meals on Wheels Dinner: 5-7pm Meal Structure Brunch: Option 1: egg (3) with vegetables (frozen peppers and frozen broccoli) with sharp cheddar or zambian cheese (if you want) with piece of fruit (20-25 grams of protein) Option 2: plain yogurt, cypriot has more protein with small amount of maple syrup with frozen berrieswith nuts (2-4 tbsp) (20-25 grams of protein) Option 3: rolled oats with banana and peanut butter with cinnamon with milk (microwave 2 minutes) (15-20 grams protein) Lunch: Meals on Wheels Dinner: Try to have more frozen or canned vegetables Option 1: chicken OR baked fish with frozen or canned vegetable with yellow small potato Option 2: tuna salad with 2 tbsp cypriot plain yogurt with 2 tbsp huff over spinach or lettuce If needed, Snack: All 10 grams of protein Option 1: hummus and raw vegetable and crackers (wheat thin) Option 2: cottage cheese (3/4 cup) with chives Option 3: grapes with nuts Other Nutrition Goals 60 grams of protein per day 20-25 grams of fiber per day Huff - 1 tbsp cypriot plain yogurt with 1 tbsp huff Limit [...] in the hot weather Call Sleep medicine: [phone] Handouts provided today: None This encounter is [facility] Registered Dietitian visit number [] 1 [] 2 [] 3 [x] ?4 Monitor/Evaluate: Return in about 6 weeks (around 07/03/2024) for CHRISTOPH, 30 min, Tawny galloway . Thank you, Gina Mendez PhD, RD, LD 30 minutes were spent [id number] with this patient today, whether in person or by zoom as specified above documented in this encounter Plan of Treatment Upcoming Encounters Date Type Department Care Team (Late st Contact Info) Description 07/04/2024 12:00 PM EDT Office Visit [place] [address] Yamile Jesus MD [facility] [place] [address] 09/09/2024 3:00 PM EST TH Visit (TeleHealth) Sleep Center at [facility] [address] [place] [address] Kaia Becker APRN [facility] [place] [address] documented as of this encounter Goals Goal [...] and frozen broccoli) with sharp cheddar or zambian cheese (if you want) with piece of fruit (20-25 grams of protein) Option 2: plain yogurt, cypriot has more protein with small amount of [...] Option 2: tuna salad with 2 tbsp cypriot plain yogurt with 2 tbsp huff over spinach or lettuce If needed, Snack: All 10 grams of protein Option 1: hummus and raw vegetable and crackers (wheat thin) Option 2: cottage cheese (3/4 cup) with chives Option 3: grapes with nuts Other Nutrition Goals 60 grams of protein per day 20-25 grams of fiber per day Huff - 1 tbsp cypriot plain yogurt with 1 tbsp huff Limit [...] pickled beets 9. Limit the frappachinos from [employer], try a cold brew coffee in the hot weather Call Sleep medicine: [phone] documented as of this encounter Visit Diagnoses Diagnosis Adult BMI 45.0-49.9 kg/sq m Body Mass Index 45.0-49.9, adult documented in this encounter Care Teams Physical Metallurgist Relationship Specialty Start Date End Date Jane Hector APRN [address] [place] [address] PCP - General Geriatric Medicine 07/18/23 documented as of this encounter
--- OUTSIDE RECORDS SUMMARY | 2024-05-29 02:26 | XMS_ITS | Encounter Summary ---
Author Organization [facility] [place] [address] Care Team Providers Care Fiber Technologist Name Role Phone Jane Hector APRN Primary Care Provider [phone] Reason for Visit * Reason Onset Date Comments Other 03/12/2024 Encounter Details Date Type Department Care Team (Late st Contact Info) Description 03/12/2024 Telephone [place] [phone] Yamile Jesus MD [facility] [address] [place] [address] Other Social History Tobacco Use Types Packs/Day Years Used Date Smoking Tobacco: Never Smokeless Tobacco: Never Sex and Gender Information Value Date Recorded Sex Assigned at Female 08/24/2023 3:35 PM EDT Gender Identity Female 08/24/2023 3:29 PM EDT Sexual Orientation Straight 08/24/2023 3: 35 PM EDT documented as of this encounter Miscellaneous Notes * Telephone Encounter - Gina Gillespie RN - 03/13/2024 2:38 PM EDT [facility] message sent to pt regarding sleep medicine apt. * Telephone Encounter - Hector Botello - 03/12/2024 11:18 AM EDT Patient called to confirm that they are not comfortable with having someone other than their provider in the room during their appointment. * Telephone Encounter - Demi Vogt - 03/12/2024 11:11 AM EDT Patient calling to remind the provider to Speak with Sleep medicine regarding the medication she istaking for sleep. States it is not working even at the new suggested dose. Patient also expressed to this residential mortgage underwriter she does not want to have the Patient advocate in the room she does not feel comfortable and feels she cannot be open with the provider with them their would like to know if it is mandatory to have them their? Please call to advise. documented in this encounter Plan of Treatment Upcoming Encounters Date Type Department Care Team (Late st Contact Info) Description 07/04/2024 12:00 PM EDT Office Visit [place] [address] Yamile Jesus MD [facility] [place] [address] 09/09/2024 3:00 PM EST TH Visit (TeleHealth) Sleep Center at [address] [address] Kaia Becker APRN [facility] [place] [address] documented as of this encounter Goals Goal [...] and frozen broccoli) with sharp cheddar or taiwanese cheese (if you want) with piece of fruit (20-25 grams of protein) Option 2: plain yogurt, malagasy has more protein with small amount of [...] Option 2: tuna salad with 2 tbsp malagasy plain yogurt with 2 tbsp huff over spinach or lettuce If needed, Snack: All 10 grams of protein Option 1: hummus and raw vegetable and crackers (wheat thin) Option 2: cottage cheese (3/4 cup) with chives Option 3: grapes with nuts Other Nutrition Goals 60 grams of protein per day 20-25 grams of fiber per day Huff - 1 tbsp malagasy plain yogurt with 1 tbsp huff Limit [...] in the hot weather Call Sleep medicine: [phone] documented as of this encounter Visit Diagnoses Not on filedocumented in this encounter Care Teams Fiber Technologist Relationship Specialty Start Date End Date Jane Hector APRN [address] [place] [address] PCP - General Geriatric Medicine 07/18/23 documented as of this encounter
--- OUTSIDE RECORDS SUMMARY | 2024-05-29 02:26 | XMS_ITS | Encounter Summary ---
[place] [address] Care Team Providers Care Credit Risk Specialist Name Role Phone Jane Hector APRN Primary Care Provider [phone] Reason for Visit * Reason Onset Date Comments Medication Refill 04/04/2024 Encounter Details Date Type Department Care Team (Late st Contact Info) Description 04/04/2024 Refill [place] [phone] Yamile Jesus MD [facility] [place] [address] Type 2 diabetes mellitus without complication, unspecified whether chcf insulin use Social History Tobacco Use Types [...] Visit [place] [phone] Yamile Jesus MD [facility] [address] [place] [address] 09/09/2024 3:00 PM EST TH Visit (TeleHealth) Sleep Center at [facility] [address] [place] [phone] Kaia Becker APRN [facility] [place] [address] documented as of this encounter Goals Goal [...] and frozen broccoli) with sharp cheddar or malian cheese (if you want) with piece of fruit (20-25 grams of protein) Option 2: plain yogurt, montserratian has more protein with small amount of [...] Option 2: tuna salad with 2 tbsp montserratian plain yogurt with 2 tbsp huff over spinach or lettuce If needed, Snack: All 10 grams of protein Option 1: hummus and raw vegetable and crackers (wheat thin) Option 2: cottage cheese (3/4 cup) with chives Option 3: grapes with nuts Other Nutrition Goals 60 grams of protein per day 20-25 grams of fiber per day Huff - 1 tbsp montserratian plain yogurt with 1 tbsp huff Limit [...] beets 9. Limit the frappachinos from [facility], try a cold brew coffee in the hot weather Call Sleep medicine: [phone] documented as of this encounter Visit Diagnoses Diagnosis Type 2 diabetes mellitus without complication, unspecified whether technician terminal and repeater insulin use documented in this encounter Care Teams Credit Risk Specialist Relationship Specialty Start Date End Date Jane Hector APRN [address] [place] [address] PCP - General Geriatric Medicine 07/18/23 documented as of this encounter
--- OUTSIDE RECORDS SUMMARY | 2024-05-29 02:26 | XMS_ITS | Encounter Summary ---
Author Organization [facility] [place] [address] Care Team Providers Care Lease Picker Name Role Phone Jane Hector ZACK Primary Care Provider [phone] Encounter Details Date Type Department Care Team (Latest Contact Info) Description 03/08/2024 Travel Social History Tobacco Use Types Packs/Day [...] EDT Office [place] [address] Yamile Jesus MD [facility] [place] [address] 09/09/2024 3:00 PM EST TH Visit (TeleHealth) Sleep Center at [facility] [address] [place] [address] Kaia Becker APRN [facility] [place] [address] documented as of this encounter Goals Goal [...] and frozen broccoli) with sharp cheddar or mozambican cheese (if you want) with piece of fruit (20-25 grams of protein) Option 2: plain yogurt, libyan has more protein with small amount of [...] Option 2: tuna salad with 2 tbsp libyan plain yogurt with 2 tbsp huff over spinach or lettuce If needed, Snack: All 10 grams of protein Option 1: hummus and raw vegetable and crackers (wheat thin) Option 2: cottage cheese (3/4 cup) with chives Option 3: grapes with nuts Other Nutrition Goals 60 grams of protein per day 20-25 grams of fiber per day Huff - 1 tbsp libyan plain yogurt with 1 tbsp huff Limit [...] pickled beets 9. Limit the frappachinos from [employer], try a cold brew coffee in the hot weather Call Sleep medicine: [phone] documented as of this encounter Visit Diagnoses Not on filedocumented in this encounter Care Teams Lease Picker Relationship Specialty Start Date End Date Jane Hector APRN [address] [place] [address] PCP - General Geriatric Medicine 07/18/23 documented as of this encounter
--- OUTSIDE RECORDS SUMMARY | 2024-05-29 02:26 | XMS_ITS | Encounter Summary ---
[facility] [place] [address] Care Team Providers Care International Tax Manager Name Role Phone Jane Hector ZACK Primary Care Provider [phone] Reason for Visit * Reason Onset Date Comments Other 05/23/2024 Encounter Details Date Type Department Care Team (Late st Contact Info) Description 05/23/2024 Telephone Sleep Center at [facility] [address] [place] [phone] Kaia Becker APRN [facility] [place] [address] Other Social History Tobacco Use Types Packs/Day Years Used Date Smoking Tobacco: Never Smokeless Tobacco: Never Sex and Gender Information Value Date Recorded Sex Assigned at Female 08/24/2023 3:35 PM EDT Gender Identity Female 08/24/2023 3:29 PM EDT Sexual Orientation Straight 08/24/2023 3: 35 PM EDT documented as of this encounter Miscellaneous Notes * Telephone Encounter - Kylee Meyer - 05/23/2024 3:27 PM EDT Patient calling today to find out where is she on the waitlist. documented in this encounter Plan of Treatment Upcoming Encounters Date Type Department Care Team (Late st Contact Info) Description 07/04/2024 12:00 PM EDT Office [place] [address] Yamile Jesus MD [facility] [place] [address] 09/09/2024 3:00 PM EST TH Visit (TeleHealth) Sleep Center at [facility] [address] [place] [phone] Kaia Becker APRN [facility] [place] [address] documented as of this encounter Goals Goal [...] and frozen broccoli) with sharp cheddar or mongolian cheese (if you want) with piece of fruit (20-25 grams of protein) Option 2: plain yogurt, vatican citizen has more protein with small amount of [...] Option 2: tuna salad with 2 tbsp vatican citizen plain yogurt with 2 tbsp huff over spinach or lettuce If needed, Snack: All 10 grams of protein Option 1: hummus and raw vegetable and crackers (wheat thin) Option 2: cottage cheese (3/4 cup) with chives Option 3: grapes with nuts Other Nutrition Goals 60 grams of protein per day 20-25 grams of fiber per day Huff - 1 tbsp vatican citizen plain yogurt with 1 tbsp huff Limit [...] in the hot weather Call Sleep medicine: [phone] documented as of this encounter Visit Diagnoses Not on filedocumented in this encounter Care Teams International Tax Manager Relationship Specialty Start Date End Date Jane Hector APRN [address] [place] [address] PCP - General Geriatric Medicine 07/18/23 documented as of this encounter
--- OUTSIDE RECORDS SUMMARY | 2024-05-29 02:26 | XMS_ITS | Encounter Summary ---
[place] [address] Care Team Providers Care Jigsawyer Name Role Phone Jane Hector APRN Primary Care Provider [phone] Encounter Details Date Type Department Care Team (Late st Contact Info) Description 01/24/2024 Telephone [place] [phone] Gina Gillespie RN Social History Tobacco Use Types Packs/Day Years Used Date Smoking Tobacco: Never Smokeless Tobacco: Never Sex and Gender Information Value Date Recorded Sex Assigned at Female 08/24/2023 3:35 PM EDT Gender Identity Female 08/24/2023 3:29 PM EDT Sexual Orientation Straight 08/24/2023 3: 35 PM EDT documented as of this encounter Miscellaneous Notes * Telephone Encounter - Gina Gillespie RN - 02/01/2024 9:35 AM EDT Sent pt [facility] message. * Telephone Encounter - Gillian Tubbs As - 01/31/2024 1:58 PM EDT Message: Patient called back to say she figured out how to get the cap off of the Ozempic pen, so no need to call her back about that. Patient did ask if the clinic knew if the tirzepatide (Mounjaro)was back in stock. Patient requesting a call for update on that. Please call to assist. Thanks! Ask caller their first and last name and relationship to the patient: Jes Vivier, patient Best time to call back: any Ok to leave a message: yes Ok to send my- message: no Offered Appointment: no Message: yes Call made to medical unit secretary or nurse Y/N no Pager: Y/N no * Telephone Encounter - Barbara Martin - 01/31/2024 1:23 PM EDT Patient calling stating she cannot get the cap off of her Ozempic pen and needs to speak with a nurse. Please call to assist. * Telephone Encounter - Kylee Meyer - 01/26/2024 4:54 PM EDT Patient called stating she is all set with Ozempic and thanks office for expediting. * Telephone Encounter - Gina Gillespie RN - 01/24/2024 1:29 PM EDT Called pt and left detailed message. Dr. Jesus. DOES NOT want her to do more than one injection of Ozempic 1 mg this week. If we can get her insurance to allow a dispense of Ozempic 2 mg early, next week she can increase to 2 mg next week. I will send a [facility] message with this information as well. Ask that she please confirm what pharmacy so that we send it to the correct place. * Telephone Encounter - Gina Gillespie RN - 01/24/2024 12:48 PM EDT Spoke with pt. She wanted to know if I had talked to Dr. Jesus or was making it up. I let pt know that I spoke with Dr. Jesus yesterday. I did not make up how to take Ozempic. I went according to Dr. Jesus instructions.When patients increase their dose to fast it increases there chance of side effects - nausea, vomiting, diarrhea, and dehydration with potential need for emergency room visit. Pt wants me to speak to her again and let her know that she has already eaten 400#s of food today. And ask again if she can take 2 injections today. Pt is giving her injection of Ozempic 1 mg now and wants a call by the end of the day to know if she can do another injection. documented in this encounter Plan of Treatment Upcoming Encounters Date Type Department Care Team (Late st Contact Info) Description 07/04/2024 12:00 PM EDT Office Visit [place] [address] Yamile Jesus MD [facility] [place] [place] [address] 09/09/2024 3:00 PM EST TH Visit (TeleHealth) Sleep Center at [address] [phone] Kaia Becker APRN [facility] [place] [address] documented as of this encounter Goals Goal [...] and frozen broccoli) with sharp cheddar or bulgarian cheese (if you want) with piece of fruit (20-25 grams of protein) Option 2: plain yogurt, divehi has more protein with small amount of [...] Option 2: tuna salad with 2 tbsp divehi plain yogurt with 2 tbsp huff over spinach or lettuce If needed, Snack: All 10 grams of protein Option 1: hummus and raw vegetable and crackers (wheat thin) Option 2: cottage cheese (3/4 cup) with chives Option 3: grapes with nuts Other Nutrition Goals 60 grams of protein per day 20-25 grams of fiber per day Huff - 1 tbsp divehi plain yogurt with 1 tbsp huff Limit [...] pickled beets 9. Limit the frappachinos from [facility], try a cold brew coffee in the hot weather Call Sleep medicine: [phone] documented as of this encounter Visit Diagnoses Not on filedocumented in this encounter Care Teams Jigsawyer Relationship Specialty Start Date End Date Jane Hector APRN [facility] [place] [address] PCP - General Geriatric Medicine 07/18/23 documented as of this encounter
--- OUTSIDE RECORDS SUMMARY | 2024-05-29 02:26 | XMS_ITS | Encounter Summary ---
[place] [address] Care Team Providers Care Zig Zag Stitcher Name Role Phone Jane Hector APRN Primary Care Provider [phone] Reason for Visit * Reason Onset Date Comments Other 02/26/2024 Encounter Details Date Type Department Care Team (Late Contact Info) Description 02/26/2024 Telephone [place] [phone] Nany Dobson Other Social History Tobacco Use Types Packs/Day Years Used Date Smoking Tobacco: Never Smokeless Tobacco: Never Sex and Gender Information Value Date Recorded Sex Assigned at Female 08/24/2023 3:35 PM EDT Gender Identity Female 08/24/2023 3:29 PM EDT Sexual Orientation Straight 08/24/2023 3: 35 PM EDT documented as of this encounter Miscellaneous Notes * Telephone Encounter - Nany Dobson - 02/26/2024 10:48 AM EDT Jes called in to state she is having issues with her internet and not able to connect the [facility] portal at this time. She is not sure how long this issue will go on and asked about telephone callappts, I advised Jes if she needs a virtual appt we can discuss telephone call appts at that time. Patient confirmed May appt with Dr. Jesus in [facility] in person and will call the clinic if she needs anything before hand. Call Center- Ok to connect caller with Nany for any reason. documented in this encounter Plan of Treatment Upcoming Encounters Date Type Department Care Team (Late st Contact Info) Description 07/04/2024 12:00 PM EDT Office Visit [place] [address] Yamile Jesus MD [facility] [place] [address] 09/09/2024 3:00 PM EST TH Visit (TeleHealth) Sleep Center at [facility] [address] [place] [phone] Kaia Becker APRN [facility] [place] [address] documented as of this encounter Goals Goal [...] grams of protein) Option 2: plain yogurt, irish has more protein with small amount of [...] Option 2: tuna salad with 2 tbsp irish plain yogurt with 2 tbsp huff over spinach or lettuce If needed, Snack: All 10 grams of protein Option 1: hummus and raw vegetable and crackers (wheat thin) Option 2: cottage cheese (3/4 cup) with chives Option 3: grapes with nuts Other Nutrition Goals 60 grams of protein per day 20-25 grams of fiber per day Huff - 1 tbsp irish plain yogurt with 1 tbsp huff Limit [...] in the hot weather Call Sleep medicine: [phone] documented as of this encounter Visit Diagnoses Not on filedocumented in this encounter Care Teams Zig Zag Stitcher Relationship Specialty Start Date End Date Jane Hector [place] [address] PCP - General Geriatric Medicine 07/18/23 documented as of this encounter
--- OUTSIDE RECORDS SUMMARY | 2024-05-29 02:26 | XMS_ITS | Encounter Summary ---
[place] [address] Care Team Providers Care Supervisor Machine Workers Name Role Phone Jane Hector APRN Primary Care Provider [phone] Reason for Visit * Reason Onset Date Comments Bumped Appointment 05/28/2024 Encounter Details Date Type Department Care Team (Late st Contact Info) Description 05/28/2024 Telephone Weight [place] [phone] Nany Dobson Bumped Appointment Social History Tobacco Use Types Packs/Day Years Used Date Smoking Tobacco: Never Smokeless Tobacco: Never Sex and Gender Information Value Date Recorded Sex Assigned at Female 08/24/2023 3:35 PM EDT Gender Identity Female 08/24/2023 3:29 PM EDT Sexual Orientation Straight 08/24/2023 3: 35 PM EDT documented as of this encounter Miscellaneous Notes * Telephone Encounter - Emma Shelley - 05/28/2024 11:59 AM EDT Patient returning call from Nany. * Telephone Encounter - Nany Dobson - 05/28/2024 9:21 AM EDT Left message and sent a letter via [employer] message and postal mail for the patient to reschedule 06/05/2024 bumped/cancelled appointment with Dr. Yamile Jesus in Weight and Wellness, due to a schedule change. Call Center- Please connect patient with secretary book keeper or if not available call skill GI C Skill for rescheduling into held time. *Held time on ok per provider to be in person or virtual. documented in this encounter Plan of Treatment Upcoming Encounters Date Type Department Care Team (Late st Contact Info) Description 07/04/2024 12:00 PM EDT Office Visit Weight [place] [address] Yamile Jesus MD [facility] [place] [address] 09/09/2024 3:00 PM EST TH Visit (TeleHealth) Sleep Center at [facility] [address] [place] [phone] Kaia Becker APRN [facility] [place] [place] [address] documented as of this encounter Goals Goal [...] and frozen broccoli) with sharp cheddar or nepalese cheese (if you want) with piece of fruit (20-25 grams of protein) Option 2: plain yogurt, faroese has more protein with small amount of [...] Option 2: tuna salad with 2 tbsp faroese plain yogurt with 2 tbsp huff over spinach or lettuce If needed, Snack: All 10 grams of protein Option 1: hummus and raw vegetable and crackers (wheat thin) Option 2: cottage cheese (3/4 cup) with chives Option 3: grapes with nuts Other Nutrition Goals 60 grams of protein per day 20-25 grams of fiber per day Huff - 1 tbsp faroese plain yogurt with 1 tbsp huff Limit [...] in the hot weather Call Sleep medicine: [phone] documented as of this encounter Visit Diagnoses Not on filedocumented in this encounter Care Teams Supervisor Machine Workers Relationship Specialty Start Date End Date Jane Hector APRN [facility] [place] [address] PCP - General Geriatric Medicine 07/18/23 documented as of this encounter
--- OUTSIDE RECORDS SUMMARY | 2024-05-29 02:26 | XMS_ITS | Encounter Summary ---
Author Organization [facility] [place] [address] Care Team Providers Care Student Affairs Vice President Name Role Phone Jane Hector APRN Primary Care Provider [phone] Reason for Visit * Reason Onset Date Comments Other 03/14/2024 Encounter Details Date Type Department Care Team (Late st Contact Info) Description 03/14/2024 Telephone Weight [place] [phone] Yamile Jesus MD [facility] [address] [place] [address] Other Social History Tobacco Use Types Packs/Day Years Used Date Smoking Tobacco: Never Smokeless Tobacco: Never Sex and Gender Information Value Date Recorded Sex Assigned at Female 08/24/2023 3:35 PM EDT Gender Identity Female 08/24/2023 3:29 PM EDT Sexual Orientation Straight 08/24/2023 3: 35 PM EDT documented as of this encounter Miscellaneous Notes * Telephone Encounter - Odette Fairbanks RN - 03/19/2024 8:19 AM EDT Portal message sent to pt * Telephone Encounter - Kylee Meyer - 03/14/2024 11:33 AM EDT Message: Patient calling today. States there was a letter written by provider in her portal after 03/08 visit and now all of a sudden she cannot find it. She is looking to have a copy of that. Please call her. Ask caller their first and last name and relationship to the patient: Jes Bello Best time to call back: anytime Ok to leave a message: Yes, detailed message please Ok to send - message: no Offered Appointment: no Message: Y Call made to private secretary or nurse Y/N n Pager: Y/N n documented in this encounter Plan of Treatment Upcoming Encounters Date Type Department Care Team (Late st Contact Info) Description 07/04/2024 12:00 PM EDT Office Visit [place] [address] Yamile Jesus MD [facility] [place] [place] [address] 09/09/2024 3:00 PM EST TH Visit (TeleHealth) Sleep Center at [facility] [address] [place] [address] Kaia Becker APRN [facility] [place] [address] documented as of this encounter Goals Goal [...] and frozen broccoli) with sharp cheddar or puerto rican cheese (if you want) with piece of fruit (20-25 grams of protein) Option 2: plain yogurt, salvadorean has more protein with small amount of [...] Option 2: tuna salad with 2 tbsp salvadorean plain yogurt with 2 tbsp huff over spinach or lettuce If needed, Snack: All 10 grams of protein Option 1: hummus and raw vegetable and crackers (wheat thin) Option 2: cottage cheese (3/4 cup) with chives Option 3: grapes with nuts Other Nutrition Goals 60 grams of protein per day 20-25 grams of fiber per day Huff - 1 tbsp salvadorean plain yogurt with 1 tbsp huff Limit [...] in the hot weather Call Sleep medicine: [phone] documented as of this encounter Visit Diagnoses Not on filedocumented in this encounter Care Teams Student Affairs Vice President Relationship Specialty Start Date End Date Jane Hector [place] [address] PCP - General Geriatric Medicine 07/18/23 documented as of this encounter
--- OUTSIDE RECORDS SUMMARY | 2024-05-29 02:26 | XMS_ITS | Encounter Summary ---
[place] [address] Care Team Providers Care Gas Producer Name Role Phone Jane Hector APRN Primary Care Provider [phone] Encounter Details Date Type Department Care Team (Late st Contact Info) Description 01/19/2024 Telephone Weight [place] [phone] Yamile Jesus MD [facility] [address] [facility] [address] Social History Tobacco Use Types Packs/Day Years Used Date Smoking Tobacco: Never Smokeless Tobacco: Never Sex and Gender Information Value Date Recorded Sex Assigned at Female 08/24/2023 3:35 PM EDT Gender Identity Female 08/24/2023 3:29 PM EDT Sexual Orientation Straight 08/24/2023 3: 35 PM EDT documented as of this encounter Miscellaneous Notes * Telephone Encounter - Gina Gillespie RN - 01/23/2024 12:27 PM EDT [facility] message sent to pt * Telephone Encounter - Rocio Grant - 01/19/2024 8:59 AM EDT Message: Patient calling, she states as of 01/21/24 she will have been on Ozempic 1mg for 2 weeks and does not feel that its helping. She states she is eating more and has gained some weight, and she feels it is because its such a low dose. She is wondering if she can go up to the next dose. By Monday she will have 2 doses left and is wondering if she can take them together to make a 2mg dose. Please call to advise, patient states to leave a detailed voicemail if she does not answer. Ask caller their first and last name and relationship to the patient: self Phone: Best time to call back: any Ok to leave a message: y Ok to send [facility] message: y Offered Appointment: Message: y Call:n Pager:n documented in this encounter Plan of Treatment Upcoming Encounters Date Type Department Care Team (Late st Contact Info) Description 07/04/2024 12:00 PM EDT Office Visit Weight [place] [address] Yamile Jesus MD [facility] [place] [address] 09/09/2024 3:00 PM EST TH Visit (TeleHealth) Sleep Center at [place] [address] [place] [phone] Kaia Becker APRN [facility] [place] [address] documented as of this encounter Goals Goal [...] and frozen broccoli) with sharp cheddar or cypriot cheese (if you want) with piece of fruit (20-25 grams of protein) Option 2: plain yogurt, st helenian has more protein with small amount of [...] Option 2: tuna salad with [address] helenian plain yogurt with 2 tbsp huff over spinach or lettuce If needed, Snack: All 10 grams of protein Option 1: hummus and raw vegetable and crackers (wheat thin) Option 2: cottage cheese (3/4 cup) with chives Option 3: grapes with nuts Other Nutrition Goals 60 grams of protein per day 20-25 grams of fiber per day Huff - [address] helenian plain yogurt with 1 tbsp huff Limit [...] pickled beets 9. Limit the frappachinos from [employer], try a cold brew coffee in the hot weather Call Sleep medicine: [phone] documented as of this encounter Visit Diagnoses Not on filedocumented in this encounter Care Teams Gas Producer Relationship Specialty Start Date End Date Jane Hector APRN [address] [place] [address] PCP - General Geriatric Medicine 07/18/23 documented as of this encounter
--- OUTSIDE RECORDS SUMMARY | 2024-05-29 02:26 | XMS_ITS | Encounter Summary ---
[facility] Organization [facility] [place] [address] Care Team Providers Care Broom Stitcher Name Role Phone Jane Hector APRN Primary Care Provider [phone] Encounter Details Date Type Department Care Team (Late st Contact Info) Description 03/08/2024 2:30 PM EDT Office Visit [place] [address] Yamile Jesus MD [facility] [address] [place] [address] Class 3 severe obesity with serious comorbidity and body mass index (BMI) of 45.0 to 49.9 in adult, unspecified obesity type (Primary Dx); Type 2 diabetes mellitus without complication, unspecified whether retirement insulin use; Gastroesophageal reflux disease, unspecified whether esophagitis present; Hypertension, unspecified type; Mixed anxiety and depressive disorder; Hypothyroidism, unspecified type; CIARA (obstructive sleep apnea); Insomnia, unspecified type Social History Tobacco Use Types Packs/Day Years Used Date Smoking Tobacco: Never Smokeless Tobacco: Never Sex and Gender Information Value Date Recorded Sex Assigned at Female 08/24/2023 3:35 PM EDT Gender Identity Female 08/24/2023 3:29 PM EDT Sexual Orientation Straight 08/24/2023 3: 35 PM EDT documented as of this encounter Progress Notes * Yamile Jesus MD - 03/08/2024 2:30 PM EDTSummary: 8th visit with MD Images from the original note were not included. [facility] Patient Name: Jes Bello Date of : 1960 Age: 63 y.o. Jane Hector APRN Thank you for referring Jes Bello to the [facility]. I saw her for a follow-up visit today, 03/10/24. Please see changes to care as documented in the assessment and plan. CHIEF COMPLAINT: F/u for treatment of WHO Class 3 / EOSS Stage 2 Obesity, defined by BMI at presentation, with comorbidities:HTN, DM 2, anxiety/depression, thyroid disease. This is Visit #8 [facility] visit for this 63 y.o. patient. Initial weight 12/03/22: 284 lbs 02/03/2023, no new weight 04/14/2023, 251 lbs (- 33 lbs) 06/07/2023, 254 lbs (+ 3 lbs, - 30 lbs) 08/11/2023, 259 lbs (+ 4 lbs, - 26 lbs) 10/06/2023, 261 lbs (+ 2 lbs, - 24 lbs) 01/10/2024, 263 lbs (+ 2 lbs, - 23 lbs) 03/08/2024, no new weight [facility] Team: RD in the community HPI Pt advocate wanted to meet with Jes today, but Jes did not feel comfortable today. Insomina is the major issue. No sleep for months. No-one will help me. I am tired and cannot sleep. Something is wrong with my brain. I do not drive this way. Had someone drive her today. Tried Lunesta 2 mg - did nothing. Trazadone 200 mg - did nothing. THC at high doses -> vomiting. CBD -> did nothing Did do well on Seroquel -> hyperphagia On Ozempic 2 mg. Gaining weight, hungry. Yesterday ate 6 donuts - tear into it like a rabid animal. I have to have the sugar, its like a compulsion. Ate brownie bites also. Incontinent today in the waiting room for unclear reasons. PILLARS Stress - Seeing Will regularly - CBT for sleep, hygiene, melatonin. Sleep - not even an hour - not sure Exercise - not addressed Nutrition - Apparently binge-eating sugar Not very much real food, getting by with 2 meals Popcorn for dinner fills me up - I live alone and I dont like to cook AOM: Currently taking: Ozempic 2 mg AOM HX: Jardiance (DM 2) - unclear why she stopped Rybelsus (DM 2) -> changed to Mounjaro COMORBIDITIES ADDRESSED CIARA Untreated HTN HL FLD Diabetes continuum + DM 2 Obesogenic meds: cymbalta? LIFESTYLE INTERVENTIONS (Topics discussed today in BOLD): For specific behavioral interventions, see goals Nutrition: specific recommendations per RD - working w community RD Behavior: Eating related to boredom/emotions, Night Eating Syndrome - historically, no issues currently Activity: None Barriers: []needs cardiac eval [x]injury/pain preventing activity right now Stress Management:has counselor Sleep: CIARA - untreated, needs f/u, refer to sleep med - has trazadone - tried 100 mg x 2 nights, 200 mg x 2 nights without effect; message sent to sleep medicine to reconnect with another provider. Iwill call psych LAB DIRECTOR about this situation as I am quite concerned about Jes's mental health and Iexplained all of this to her - she potentially needs an antipsychotic such as seroquel but she is concerned about the obesogenicity of the drug - I explained the GLP 1s will help counteract this. Self-monitoring: Food log Groups of interest: []HLP-ES [] HLP-MS [] HLP-LS []Culinary []ACT []Monthly Lifestyle Classes Discussion 03/10/24: See above. 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 Routine f/u with me. No data to display VITAL SIGNS: There were no vitals filed for this visit. There is no height or weight on file to calculate BMI. PHYSICAL EXAM: Gen: Alert and appropriate, NAD. LABS: Lab Results Component Value Date WBC 9.47 10/12/2022 HGB 15.3 10/12/2022 HCT 43.8 10/12/2022 PLATELET 267 10/12/2022 Lab Results Component Value Date NA 135 (L) 10/12/2022 K 4.1 10/12/2022 CL 101 10/12/2022 CO2 27 10/12/2022 BUN 28 (H) 10/12/2022 CREATININE 1.1 (H) 10/12/2022 GLUCOSE 200 (H) 10/12/2022 ESTGFR 56.18 (L) 10/12/2022 Lab Results Component Value Date ALT 45 10/12/2022 AST 26 10/12/2022 Lab Results Component Value Date CHLPL 152 10/12/2022 HDL 44 10/12/2022 TRIG 126 10/12/2022 LDLCHOL 83 10/12/2022 Lab Results Component Value Date HA1C 8.1 (H) 10/12/2022 HA1C 8.1 09/28/2022 Lab Results Component Value Date TSH 3.06 10/12/2022 No results found for: LABINSU No results found for: GLUCFASTING No results found for: ULWVQNWX77 No results found for: 25OHVITD No results found for: URICACID ASSESSMENT AND PLAN Jes Bello was seen in follow up today for ongoing Metabolically unhealthy obesity not yet at treatment goal [] with improvement [x] without change. Goals and treatment options were discussed. Continue medical management and lifestyle changes. For specific behavioral interventions, see goals/AVS FACTORS ASSOCIATED WITH OBESITY Obesogenic meds: Anti-depressant Plan: No change at this time Metabolic Co-morbidities addressed with weight loss: Hypertension and Type 2 Diabetes Other Co-Morbidities impacted by weight loss: Anxiety, Depression, CIARA-untreated and Thyroid dz Referrals pending: None at this time AOM management today: Mounjaro 10 mg rx today - Essie Perez Diagnoses and all orders for this visit: Class 3 severe obesity with serious comorbidity and body mass index (BMI) of 45.0 to 49.9 in adult,unspecified obesity type Type 2 diabetes mellitus without complication, unspecified whether retirement insulin use - tirzepatide (Mounjaro) 10 mg/0.5 mL Pen Injector; Inject 10 mg subcutaneously once a week. Gastroesophageal reflux disease, unspecified whether esophagitis present Hypertension, unspecified type Mixed anxiety and depressive disorder Hypothyroidism, unspecified type CIARA (obstructive sleep apnea) Insomnia, unspecified type No orders of the defined types were placed in this encounter. No follow-ups on file. Scheduled with RD and MD [place] charge based on management of 1+ chronic diseases and medication management. min chart review min [id number] visit Min documentation time I spent time above today reviewing labs, writing prescriptions, documenting visit, examining the patient, arranging other specialty care, counseling in diet and/or exercise and discussion of treatment options in the care of obesity, completed on the date of service. documented in this encounter Plan of Treatment Upcoming Encounters Date Type Department Care Team (Late st Contact Info) Description 07/04/2024 12:00 PM EDT Office Visit [place] [address] Yamile Jesus MD [facility] [place] [address] 09/09/2024 3:00 PM EST TH Visit (TeleHealth) Sleep Center at [facility] [address] [place] [phone] Kaia Becker APRN [facility] [place] [address] documented as of this encounter Goals Goal [...] and frozen broccoli) with sharp cheddar or rwandan cheese (if you want) with piece of fruit (20-25 grams of protein) Option 2: plain yogurt, danish has more protein with small amount of [...] Option 2: tuna salad with 2 tbsp danish plain yogurt with 2 tbsp huff over spinach or lettuce If needed, Snack: All 10 grams of protein Option 1: hummus and raw vegetable and crackers (wheat thin) Option 2: cottage cheese (3/4 cup) with chives Option 3: grapes with nuts Other Nutrition Goals 60 grams of protein per day 20-25 grams of fiber per day Huff - 1 tbsp danish plain yogurt with 1 tbsp huff Limit [...] in the hot weather Call Sleep medicine: [phone] documented as of this encounter Visit Diagnoses Diagnosis Class 3 severe obesity with serious comorbidity and body mass index (BMI) of 45.0 to 49.9 in adult, unspecified obesity type- Primary Type 2 diabetes mellitus without complication, unspecified whether oysterman insulin use Gastroesophageal reflux disease, unspecified whether esophagitis present Hypertension, unspecified type Mixed anxiety and depressive disorder Dysthymic disorder Hypothyroidism, unspecified type CIARA (obstructive sleep apnea) Obstructive sleep apnea (adult) (pediatric) Insomnia, unspecified type documented in this encounter Care Teams Broom Stitcher Relationship Specialty Start Date End Date Jane Hector APRN [address] [facility] [place] [address] PCP - General Geriatric Medicine 07/18/23 documented as of this encounter
--- OUTSIDE RECORDS SUMMARY | 2024-05-29 02:26 | XMS_ITS | Encounter Summary ---
Author Organization [facility] [place] [address] Care Team Providers Care Chief Of Service Name Role Phone Jane Hector APRN Primary Care Provider [phone] Encounter Details Date Type Department Care Team (Late st Contact Info) Description 04/10/2024 3:00 PM EDT TH Visit (TeleHealth) [place] [phone] Gina Mendez RD [facility] [place] [address] Adult BMI 45.0-49.9 kg/sq m Social History [...] * Patient Instructions* Gina Mendez RD - 04/10/2024 3:00 PM EDT It was great to chat with you, Jes. Below are goals discussed today as well as in past visits. Please reach out with a [employer] message if you have any questions or [...] and frozen broccoli) with sharp cheddar or azerbaijani cheese (if you want) with piece of fruit (20-25 grams of protein) Option 2: plain yogurt, filipino has more protein with small amount of [...] Option 2: tuna salad with 2 tbsp filipino plain yogurt with 2 tbsp huff over spinach or lettuce If needed, Snack: All 10 grams of protein Option 1: hummus and raw vegetable and crackers (wheat thin) Option 2: cottage cheese (3/4 cup) with chives Option 3: grapes with nuts Other Nutrition Goals 60 grams of protein per day 20-25 grams of fiber per day Huff - 1 tbsp filipino plain yogurt with 1 tbsp huff Limit [...] pickled beets 9. Limit the frappachinos from [employer], try a cold brew coffee in the hot weather documented in this encounter Progress Notes * Gina Mendez RD - 04/10/2024 3:00 PM EDTSummary: [facility] RD follow-up Nutrition Intervention for Weight Management Follow-up RD visit with Jes BelloCARO 1960 Location: [facility] care team: Dr. Jesus Weight Today: None reported Wt Readings from Last 3 Encounters: 01/10/24 [...] meal. She drinks whole milk every day. Food Tracking: Jes expresses interest in tracking and weighing. Typical Dietary Intake: Jes typically has 2 [...] Eating after dinner? Not usually, maybe a tiny piece of banana Eating in the middle [...] Not managed (see interview) Foods that Jes Bello is willing to eat or try [...] and frozen broccoli) with sharp cheddar or azerbaijani cheese (if you want) with piece of fruit (20-25 grams of protein) Option 2: plain yogurt, filipino has more protein with small amount of [...] Option 2: tuna salad with 2 tbsp filipino plain yogurt with 2 tbsp huff over spinach or lettuce If needed, Snack: All 10 grams of protein Option 1: hummus and raw vegetable and crackers (wheat thin) Option 2: cottage cheese (3/4 cup) with chives Option 3: grapes with nuts Other Nutrition Goals 60 grams of protein per day 20-25 grams of fiber per day Huff - 1 tbsp filipino plain yogurt with 1 tbsp huff Limit [...] cold brew coffee in the hot weather Handouts provided today: None This encounter is [facility] Registered Dietitian visit number [] 1 [] 2 [] 3 [x] ?4 Monitor/Evaluate: Return in about 6 weeks (around 05/22/2024) for CHRISTOPH, 30 min, nilesh Chávez. Thank you, Gina Mendez PhD, RD, LD 30 minutes were spent [id number] with this patient today, whether in person or by zoom as specified above documented in this encounter Plan of Treatment Upcoming Encounters Date Type Department Care Team (Late st Contact Info) Description 07/04/2024 12:00 PM EDT Office Visit [place] [address] Yamile Jesus MD [facility] [place] [address] 09/09/2024 3:00 PM EST TH Visit (TeleHealth) Sleep Center at [place] [address] [place] [phone] Kaia Becker APRN [facility] [place] [place] [address] documented as of this encounter Goals Goal [...] and frozen broccoli) with sharp cheddar or azerbaijani cheese (if you want) with piece of fruit (20-25 grams of protein) Option 2: plain yogurt, filipino has more protein with small amount of [...] Option 2: tuna salad with 2 tbsp filipino plain yogurt with 2 tbsp huff over spinach or lettuce If needed, Snack: All 10 grams of protein Option 1: hummus and raw vegetable and crackers (wheat thin) Option 2: cottage cheese (3/4 cup) with chives Option 3: grapes with nuts Other Nutrition Goals 60 grams of protein per day 20-25 grams of fiber per day Huff - 1 tbsp filipino plain yogurt with 1 tbsp huff Limit [...] pickled beets 9. Limit the frappachinos from [employer], try a cold brew coffee in the hot weather Call Sleep medicine: [phone] documented as of this encounter Visit Diagnoses Diagnosis Adult BMI 45.0-49.9 kg/sq m Body Mass Index 45.0-49.9, adult documented in this encounter Care Teams Chief Of Service Relationship Specialty Start Date End Date Jane Hector APRN [address] [place] [address] PCP - General Geriatric Medicine 07/18/23 documented as of this encounter
--- OUTSIDE RECORDS SUMMARY | 2024-05-29 02:26 | XMS_ITS | Encounter Summary ---
[facility] Organization [facility] [place] [address] Care Team Providers Care Enlisted Advisor Name Role Phone Jane Hector APRN Primary Care Provider [phone] Reason for Visit * Reason Onset Date Comments Medication Refill 04/29/2024 Encounter Details Date Type Department Care Team (Late st Contact Info) Description 04/29/2024 Telephone [place] [address] Yamile Jesus MD [facility] [address] [place] [address] Medication Refill Social History Tobacco Use Types Packs/Day Years Used Date Smoking Tobacco: Never Smokeless Tobacco: Never Sex and Gender Information Value Date Recorded Sex Assigned at Female 08/24/2023 3:35 PM EDT Gender Identity Female 08/24/2023 3:29 PM EDT Sexual Orientation Straight 08/24/2023 3: 35 PM EDT documented as of this encounter Miscellaneous Notes * Telephone Encounter - Gina Gillespie RN - 04/29/2024 10:49 AM EDT Request sent to provider * Telephone Encounter - Emma Shelley - 04/29/2024 9:50 AM EDT Please remind every patient that prescription requests can take up to 72 business hours to process PLEASE REMEMBER TO CHECK IF ANY REFILLS MAY BE REMAINING AT THE PHARMACY Medication Refill Request: Name of Medication: tirzepatide (Mounjaro) 12.5 mg/0.5 mL Pen Injector Dose as Prescribed: Should now be 15 ml How many days left: None Prescriber: Yamile Jesus Pharmacy Name & Location: [facility] Please check if patient is due for an appointment and schedule if so. Ask caller their first and last name and relationship to the patient: Self Best time to call back: Any Ok to leave a message: Yes Ok to send - message: Yes Patient will be out for several hours and is requesting a detailed message be left. documented in this encounter Plan of Treatment Upcoming Encounters Date Type Department Care Team (Late st Contact Info) Description 07/04/2024 12:00 PM EDT Office Visit [place] [address] Yamile Jesus MD [facility] [place] [address] 09/09/2024 3:00 PM EST TH Visit (TeleHealth) Sleep Center at [address] [place] [address] Kaia Becker APRN [facility] [place] [address] documented as of this encounter Goals Goal [...] and frozen broccoli) with sharp cheddar or mauritian cheese (if you want) with piece of fruit (20-25 grams of protein) Option 2: plain yogurt, czech has more protein with small amount of [...] Option 2: tuna salad with 2 tbsp czech plain yogurt with 2 tbsp huff over spinach or lettuce If needed, Snack: All 10 grams of protein Option 1: hummus and raw vegetable and crackers (wheat thin) Option 2: cottage cheese (3/4 cup) with chives Option 3: grapes with nuts Other Nutrition Goals 60 grams of protein per day 20-25 grams of fiber per day Huff - 1 tbsp czech plain yogurt with 1 tbsp huff Limit [...] in the hot weather Call Sleep medicine: [phone] documented as of this encounter Visit Diagnoses Not on filedocumented in this encounter Care Teams Enlisted Advisor Relationship Specialty Start Date End Date Jane Hector APRN [address] [place] [address] PCP - General Geriatric Medicine 07/18/23 documented as of this encounter
--- OUTSIDE RECORDS SUMMARY | 2024-05-29 02:26 | XMS_ITS | Encounter Summary ---
[place] [address] Care Team Providers Care Medical Investigator Name Role Phone Tawny Jane DIXON Primary Care Provider [phone] Encounter Details Date Type Department Care Team (Late st Contact Info) Description 03/11/2024 Telephone [place] [phone] Gina Gillespie, RN Social History Tobacco Use Types Packs/Day Years Used Date Smoking Tobacco: Never Smokeless Tobacco: Never Sex and Gender Information Value Date Recorded Sex Assigned at Female 08/24/2023 3:35 PM EDT Gender Identity Female 08/24/2023 3:29 PM EDT Sexual Orientation Straight 08/24/2023 3: 35 PM EDT documented as of this encounter Miscellaneous Notes * Telephone Encounter - Gina Gillespie, RN - 03/11/2024 9:12 AM EDT Called [facility] and spoke with Bakari Forrester, part of her service team. Dr. Jesus is concerned about this patient. She has not slept in about 6 months. Her PCP, Jane will not prescribe sleep agents - Dr. Jesus has reached out to sleep medicine but that is a long process. She has tried Trazadone as high as 200 mg and it did nothing. Jes has responded to seroquel in the past at [facility]. She is worried about gaining weight on that but is currently taking weight loss medication, Mounjaro 10 mg. We should not worry about the wt gain right now. She was incontinent in our office Monday and had flight of ideas. She would have admitted her to psych if I could have. She told her I am worried she is getting psychotic. He will bring this to the attention of her check services clerk and they will see what they can do for Jes. notified * Telephone Encounter - Gina Gillespie RN - 03/11/2024 9:[address] Jesus wants to reach out to your psych doctor and I am not finding his name and number in her chart. I would like to get it for her. [facility] documented in this encounter Plan of Treatment Upcoming Encounters Date Type Department Care Team (Late st Contact Info) Description 07/04/2024 12:00 PM EDT Office Visit [place] [address] Yamile Jesus MD [facility] [place] [address] 09/09/2024 3:00 PM EST TH Visit (TeleHealth) Sleep Center at [place] [address] [place] [address] Kaia Becker APRN [facility] [place] [place] [address] documented as of this encounter Goals Goal [...] and frozen broccoli) with sharp cheddar or israeli cheese (if you want) with piece of fruit (20-25 grams of protein) Option 2: plain yogurt, cape verdean has more protein with small amount of [...] Option 2: tuna salad with 2 tbsp cape verdean plain yogurt with 2 tbsp huff over spinach or lettuce If needed, Snack: All 10 grams of protein Option 1: hummus and raw vegetable and crackers (wheat thin) Option 2: cottage cheese (3/4 cup) with chives Option 3: grapes with nuts Other Nutrition Goals 60 grams of protein per day 20-25 grams of fiber per day Huff - 1 tbsp cape verdean plain yogurt with 1 tbsp huff Limit [...] in the hot weather Call Sleep medicine: [phone] documented as of this encounter Visit Diagnoses Not on filedocumented in this encounter Care Teams Medical Investigator Relationship Specialty Start Date End Date Jane Hector APRN [address] [place] [address] PCP - General Geriatric Medicine 07/18/23 documented as of this encounter
--- OUTSIDE RECORDS SUMMARY | 2024-05-29 02:26 | XMS_ITS | Encounter Summary ---
[place] [address] Care Team Providers Care Conche Operator Name Role Phone Jane Hector APRN Primary Care Provider [phone] Reason for Visit * Reason Onset Date Comments Medication Refill 04/29/2024 Encounter Details Date Type Department Care Team (Late st Contact Info) Description 04/29/2024 Refill [place] [phone] Yamile Jesus MD [facility] [address] [place] [address] Type 2 diabetes mellitus without complication, unspecified whether care home insulin use Social History Tobacco Use Types [...] EDT Office Visit [place] [address] Yamile Jesus MD [facility] [address] [place] [address] 09/09/2024 3:00 PM EST TH Visit (TeleHealth) Sleep Center at [facility] [address] [place] [address] Kaia Becker APRN [facility] [place] [address] documented as of this encounter Goals Goal [...] and frozen broccoli) with sharp cheddar or croatian cheese (if you want) with piece of fruit (20-25 grams of protein) Option 2: plain yogurt, grenadian has more protein with small amount of [...] Option 2: tuna salad with 2 tbsp grenadian plain yogurt with 2 tbsp huff over spinach or lettuce If needed, Snack: All 10 grams of protein Option 1: hummus and raw vegetable and crackers (wheat thin) Option 2: cottage cheese (3/4 cup) with chives Option 3: grapes with nuts Other Nutrition Goals 60 grams of protein per day 20-25 grams of fiber per day Huff - 1 tbsp grenadian plain yogurt with 1 tbsp huff Limit [...] pickled beets 9. Limit the frappachinos from [facility], try a cold brew coffee in the hot weather Call Sleep medicine: [phone] documented as of this encounter Visit Diagnoses Diagnosis Type 2 diabetes mellitus without complication, unspecified whether continuous churn buttermaker insulin use documented in this encounter Care Teams Conche Operator Relationship Specialty Start Date End Date Jane Hector APRN [address] [place] [address] PCP - General Geriatric Medicine 07/18/23 documented as of this encounter
--- OUTSIDE RECORDS SUMMARY | 2024-05-29 02:26 | XMS_ITS | Encounter Summary ---
[facility] [place] [address] Care Team Providers Care Vocational Services Specialist Name Role Phone Jane Hector APRN Primary Care Provider [phone] Reason for Visit * Reason Onset Date Comments Medication Refill 02/21/2024 Encounter Details Date Type Department Care Team (Late st Contact Info) Description 02/21/2024 Telephone [place] [address] Yamile Jesus MD [facility] [address] [facility] [address] Medication Refill Social History Tobacco Use Types Packs/Day Years Used Date Smoking Tobacco: Never Smokeless Tobacco: Never Sex and Gender Information Value Date Recorded Sex Assigned at Female 08/24/2023 3:35 PM EDT Gender Identity Female 08/24/2023 3:29 PM EDT Sexual Orientation Straight 08/24/2023 3: 35 PM EDT documented as of this encounter Miscellaneous Notes * Telephone Encounter - Odette Fairbanks RN - 02/22/2024 2:57 PM EDT Prescription pended to provider * Telephone Encounter - Rocio Grant - 02/21/2024 4:33 PM EDT Please remind every patient that prescription requests can take up to 72 business hours to process PLEASE REMEMBER TO CHECK IF ANY REFILLS MAY BE REMAINING AT THE PHARMACY Medication Refill Request: Name of Medication: semaglutide (Ozempic) 2 mg/dose (8 mg/3 mL) Pen Injector [[id number]] Dose: 2 mg Route: Subcutaneous Frequency: WEEKLY Dispense Quantity: 3 mL Refills: 3 Sig: Inject 2 mg subcutaneously once a week. How many days left: due for next injection on 02/28/24 Prescriber: Yamile Jesus Pharmacy Name & Location: [facility] Please check if patient is due for an appointment and schedule if so. Ask caller their first and last name and relationship to the patient: patient Phone: Best time to call back: any Ok to leave a message: y Ok to send - message: y Patient states she is looking for the next dose of medication to be called in. She stated she is also wanting to get back on the Mounjaro if that is an option instead of the Ozempic. Please call to advise. documented in this encounter Plan of Treatment Upcoming Encounters Date Type Department Care Team (Late st Contact Info) Description 07/04/2024 12:00 PM EDT Office Visit [place] [address] Yamile Jesus MD [facility] [place] [address] 09/09/2024 3:00 PM EST TH Visit (TeleHealth) Sleep Center at [place] [address] [place] [address] Kaia Becker [address]N [facility] [place] [address] documented as of this encounter Goals Goal [...] broccoli) with sharp cheddar or citizen of [place] cheese (if you want) with piece of fruit (20-25 grams of protein) Option 2: plain yogurt, portuguese has more protein with small amount of [...] Option 2: tuna salad with 2 tbsp portuguese plain yogurt with 2 tbsp huff over spinach or lettuce If needed, Snack: All 10 grams of protein Option 1: hummus and raw vegetable and crackers (wheat thin) Option 2: cottage cheese (3/4 cup) with chives Option 3: grapes with nuts Other Nutrition Goals 60 grams of protein per day 20-25 grams of fiber per day Huff - 1 tbsp portuguese plain yogurt with 1 tbsp huff Limit [...] in the hot weather Call Sleep medicine: [phone] documented as of this encounter Visit Diagnoses Not on filedocumented in this encounter Care Teams Vocational Services Specialist Relationship Specialty Start Date End Date Jane Hector APRN [address] [place] [address] PCP - General Geriatric Medicine 07/18/23 documented as of this encounter
--- OUTSIDE RECORDS SUMMARY | 2024-05-29 02:26 | XMS_ITS | Encounter Summary ---
[place] [address] Care Team Providers Care Rotary Driller Prospecting Name Role Phone Jane Hector APRN Primary Care Provider [phone] Reason for Visit * Reason Onset Date Comments Medication Refill 02/22/2024 Encounter Details Date Type Department Care Team (Late st Contact Info) Description 02/22/2024 Refill Weight [place] [address] Yamile Jesus MD [facility] [place] [address] Type 2 diabetes mellitus without complication, unspecified [...] EDT Office Visit Weight [place] [address] Yamile Jesus MD [facility] [place] [address] 09/09/2024 3:00 PM EST TH Visit (TeleHealth) Sleep Center at [facility] [address] [place] [address] Kaia Becker APRN [facility] [place] [address] documented as of this encounter Goals Goal [...] and frozen broccoli) with sharp cheddar or peruvian cheese (if you want) with piece of fruit (20-25 grams of protein) Option 2: plain yogurt, vincentian has more protein with small amount of [...] Option 2: tuna salad with 2 tbsp vincentian plain yogurt with 2 tbsp huff over spinach or lettuce If needed, Snack: All 10 grams of protein Option 1: hummus and raw vegetable and crackers (wheat thin) Option 2: cottage cheese (3/4 cup) with chives Option 3: grapes with nuts Other Nutrition Goals 60 grams of protein per day 20-25 grams of fiber per day Huff - 1 tbsp vincentian plain yogurt with 1 tbsp huff Limit [...] pickled beets 9. Limit the frappachinos from 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
--- OUTSIDE RECORDS SUMMARY | 2024-05-29 02:27 | XMS_ITS | Encounter Summary ---
[place] [address] Care Team Providers Care Precision Grinder External Name Role Phone Yissel Guerra APRN Primary Care Provider [phone] Reason for Visit * Reason Onset Date Comments Medication Problem 06/27/2023 Encounter Details Date Type Department Care Team (Late st Contact Info) Description 06/27/2023 Telephone [place] [address] Nany Dobson Medication Problem Social History Tobacco Use Types Packs/Day Years Used Date Smoking Tobacco: Never Smokeless Tobacco: Never Sex and Gender Information Value Date Recorded Sex Assigned at Female 08/24/2023 3:35 PM EDT Gender Identity Female 08/24/2023 3:29 PM EDT Sexual Orientation Straight 08/24/2023 3: 35 PM EDT documented as of this encounter Miscellaneous Notes * Telephone Encounter - Gina Gillespie RN - 06/28/2023 3:26 PM EDT Called and left message. I will send [facility] and if she has further questions she can call. * Telephone Encounter - Nany Dobson - 06/27/2023 4:23 PM EDT Pharmacy or caller: [facility] Medication: tirzepatide Message: Patient states she also sent a my- message. She feels she is having an increase in hunger with the higher dose of medication and is eating more often. She states she ate less on the lower dose, please call she would like to discuss these concerns. Did you contact your pharmacy?: no documented in this encounter Plan of Treatment Upcoming Encounters Date Type Department Care Team (Late st Contact Info) Description 07/04/2024 12:00 PM EDT Office Visit [place] [address] Yamile Jesus MD [facility] [place] [address] 09/09/2024 3:00 PM EST TH Visit (TeleHealth) Sleep Center at [facility] [address] [place] [address] Kaia Becker APRN [facility] [place] [address] documented as of this encounter Visit Diagnoses Not on filedocumented in this encounter Care Teams Precision Grinder External Relationship Specialty Start Date End Date Yissel Guerra APRN PCP - General Family Medicine 07/04/22 07/17/23 documented as of this encounter
--- OUTSIDE RECORDS SUMMARY | 2024-05-29 02:27 | XMS_ITS | Encounter Summary ---
[place] [address] Care Team Providers Care Sample Maker Hand Name Role Phone Jane Hector APRN Primary Care Provider [phone] Encounter Details Date Type Department Care Team (Late st Contact Info) Description 11/02/2023 Telephone [place] [phone] Gallito Barber RN Social History Tobacco Use Types Packs/Day Years Used Date Smoking Tobacco: Never Smokeless Tobacco: Never Sex and Gender Information Value Date Recorded Sex Assigned at Female 08/24/2023 3:35 PM EDT Gender Identity Female 08/24/2023 3:29 PM EDT Sexual Orientation Straight 08/24/2023 3: 35 PM EDT documented as of this encounter Miscellaneous Notes * Telephone Encounter - Gallito Barber RN - 11/02/2023 1:19 PM EST TC from pt who leave explaining the following: - pt currently taking Mounjaro 15 mg injection weekly. - pt explains she has Mounjaro 10 mg injection weekly left over in her fridge. - pt would like to know if she can return to/use up her Mounjero 10 mg injections before refilling rx for 15 mg injections. - Pt mentions that the medication costs money, thus, if it is ok for her to reduce to Mounjaro 10 mg injections to use up what she has left in her fridge, it would reduce overall cost for her. Forwarded. documented in this encounter Plan of Treatment Upcoming Encounters Date Type Department Care Team (Late st Contact Info) Description 07/04/2024 12:00 PM EDT Office [place] [address] Yamile Jesus MD [facility] [address] [facility] [place] [address] 09/09/2024 3:00 PM EST TH Visit (TeleHealth) Sleep Center at [facility] [address] [address] Kaia Becker APRN [facility] [place] [address] documented as of this encounter Goals Goal [...] and frozen broccoli) with sharp cheddar or gabonese cheese (if you want) with piece of fruit (20-25 grams of protein) Option 2: plain yogurt, nigerian has more protein with small amount of [...] Option 2: tuna salad with 2 tbsp nigerian plain yogurt with 2 tbsp huff over spinach or lettuce If needed, Snack: All 10 grams of protein Option 1: hummus and raw vegetable and crackers (wheat thin) Option 2: cottage cheese (3/4 cup) with chives Option 3: grapes with nuts Other Nutrition Goals 60 grams of protein per day 20-25 grams of fiber per day Huff - 1 tbsp nigerian plain yogurt with 1 tbsp huff Limit [...] in the hot weather Call Sleep medicine: [phone] documented as of this encounter Visit Diagnoses Not on filedocumented in this encounter Care Teams Sample Maker Hand Relationship Specialty Start Date End Date Jane Hector APRN [address] [place] [address] PCP - General Geriatric Medicine 07/18/23 documented as of this encounter
--- OUTSIDE RECORDS SUMMARY | 2024-05-29 02:27 | XMS_ITS | Encounter Summary ---
Author Organization [facility] [place] [address] Care Team Providers Care Mill Set Up Name Role Phone Jane Hector APRN Primary Care Provider [phone] Encounter Details Date Type Department Care Team (Late st Contact Info) Description 08/30/2023 4:00 PM EST TH Visit (TeleHealth) [place] [address] [facility] [place] [address] Class 3 severe obesity with serious comorbidity and body mass index (BMI) of 40.0 to 44.9 in adult, unspecified obesity type Social History Tobacco Use Types Packs/Day Years Used Date Smoking Tobacco: Never Smokeless Tobacco: Never Sex and Gender Information Value Date Recorded Sex Assigned at Female 08/24/2023 3:35 PM EDT Gender Identity Female 08/24/2023 3:29 PM EDT Sexual Orientation Straight 08/24/2023 3: 35 PM EDT documented as of this encounter Patient Instructions * Patient Instructions* Gina Mendez RD - 08/30/2023 4:00 PM EST It was great to chat with youJes. Below are goals discussed today as well as in past visits. Please reach out with a [employer] message if you have any questions or [...] bread, quinoa, oatmeal). Meal Timing Brunch: 10am - 2pm Lunch: Meals on Wheels Dinner: 6-8pm Meal Structure Brunch: Option 1: egg (3) with vegetables (frozen peppers and frozen broccoli) with sharp cheddar or malaysian cheese (if you want) with piece of fruit (20-25 grams of protein) Option 2: plain yogurt, south korean has more protein with small amount of [...] Option 2: tuna salad with 2 tbsp south korean plain yogurt with 2 tbsp huff over spinach or lettuce If needed, Snack: All 10 grams of protein Option 1: hummus and raw vegetable and crackers (wheat thin) Option 2: cottage cheese (3/4 cup) with chives Option 3: grapes with nuts Other Nutrition Goals 60 grams of protein per day Huff - 1 tbsp south korean plain yogurt with 1 tbsp huff Limit the sweet treats to dark chocolate. Freeze portions of dark chocolate. documented in this encounter Progress Notes * Gina Mendez RD - 08/30/2023 4:00 PM ESTSummary: [facility] New Patient Nutrition Intervention for Weight Management Initial RD visit with CARO Merritt 1960 Location: [facility] care team: Yamile Jesus Weight Today: Wt Readings from Last 3 Encounters: 08/11/23 117.5 kg (259 lb) 06/07/23 115.6 kg (254 lb 12.8 oz) 04/14/23 114 kg (251 lb 6.4 oz) BMI Readings from Last 3 Encounters: 08/11/23 44.46 kg/m?? 06/07/23 44.08 kg/m?? 04/14/23 43.49 kg/m?? Pertinent Anti-Obesity Medications: tirzepatide - 12.5 mg b/c shortages - hunger has gone down Interview: It was a [facility] speaking with [facility]. Jes is unable to get the high dosage of tirzepatide. She is concerned about the efficacy of the dose because she is gaining weight (5-10 lbs) over the past few months. She describes that she may have been losing more weight on the smaller dose (<10mg). Overall lost 33lb since starting the medication. We came up with a meal plan that includes 2-3 meals per day, focusing on protein and fiber (See goals). Nutrition: Meals on wheels - daily Sleep: Troubled sleeping habits - goes days without sleeping. Currently taking sleeping med - Rozerem. Has not gone to the sleep clinic at [facility] b/c does not have the cognition for answering the sleeping survey. Going to check with PCP about sleep referral. Wt loss history: See notes from Dr. eJsus Food Tracking: Not appropriate to discuss Typical Dietary Intake: Jes typically has 2-3 meals, depending on hunger. Brunch: pizza (4 pieces) OR nuts OR chili Time: 9:30am Location: home Lunch: meals on wheels - carrots, mashed potato with gravy, and chicken with gravy Time: 12-2pm Dinner: fish (steamed nadir) with vegetables (occasionally) OR beans with vegetables (occasionally) OR [employer] Time: 6-8pm Location: home Eating after dinner? Not usually, maybe a tiny piece of banana Eating in the middle of the night? No Typical Beverages: [x] water - (total: [] sugar-free additive [x] coffee - 2 cups [x] Cream - milk [] Sugar [] sugar-free additive [] tea [] Cream [] Sugar [] sugar-free additive [x] diet soda or other - pepsi - rarely [] regular soda [x] Juice or other sugar-sweetened - margo naked fruit juice [x] Milk - 8-10 oz, whole milk [] Alcohol - (How much? ) Appetite/Hunger: [...] Other: Grain: All Nutrition topics covered today: [x] Eating an appropriate amount of food for your body, limitations of caloric restriction and under eating [x] Grazing / skipping / restricting [] Scheduled times / frequency of eating [x] Reduce highly processed foods, refined carbohydrates, in favor of whole foods [] Reduce sweet taste in your diet (whether by sugar or non-nutritive sweeteners) [x] Increase fruits and non-starchy veggies [] Increase fiber through f&v, nuts/seeds, whole grains, legumes (goal of 22-28 g/day women ; 28-34 g/day men) [x] Adequate protein intake (handout provided? [] ) [] Meal planning [] Reduce sodium intake to goal of 2300 mg or less per day, 1500 mg lower target with cardiovascular risk factors or disease Nutrition Assessment: Excess intake of calories. Excess intake of processed foods and refined carbohydrates. Inadequate protein intake. Inadequate fiber intake. Barriers: Availability of foods and inability to [...] bread, quinoa, oatmeal). Meal Timing Brunch: 10am - 2pm Lunch: Meals on Wheels Dinner: 6-8pm Meal Structure Brunch: Option 1: egg (3) with vegetables (frozen peppers and frozen broccoli) with sharp cheddar or malaysian cheese (if you want) with piece of fruit (20-25 grams of protein) Option 2: plain yogurt, south korean has more protein with small amount of [...] Option 2: tuna salad with 2 tbsp south korean plain yogurt with 2 tbsp huff over spinach or lettuce If needed, Snack: All 10 grams of protein Option 1: hummus and raw vegetable and crackers (wheat thin) Option 2: cottage cheese (3/4 cup) with chives Option 3: grapes with nuts Other Nutrition Goals 60 grams of protein per day Huff - 1 tbsp south korean plain yogurt with 1 tbsp huff Limit the sweet treats to dark chocolate. Freeze portions of dark chocolate. Handouts provided today: No handouts provided Monitor/Evaluate: 2 months Thank you, Gina Mendez PhD, RD, LD 60 minutes were spent [id number] with this patient today, whether in person or by zoom as specified above documented in this encounter Plan of Treatment Upcoming Encounters Date Type Department Care Team (Late st Contact Info) Description 07/04/2024 12:00 PM EDT Office Visit [place] [address] Yamile Jesus MD [facility] [address] [place] [address] 09/09/2024 3:00 PM EST TH Visit (TeleHealth) Sleep Center at [address] [place] [address] Kaia Becker APRN [facility] [place] [address] documented as of this encounter Goals Goal [...] and frozen broccoli) with sharp cheddar or malaysian cheese (if you want) with piece of fruit (20-25 grams of protein) Option 2: plain yogurt, south korean has more protein with small amount of [...] Option 2: tuna salad with 2 tbsp south korean plain yogurt with 2 tbsp huff over spinach or lettuce If needed, Snack: All 10 grams of protein Option 1: hummus and raw vegetable and crackers (wheat thin) Option 2: cottage cheese (3/4 cup) with chives Option 3: grapes with nuts Other Nutrition Goals 60 grams of protein per day 20-25 grams of fiber per day Huff - 1 tbsp south korean plain yogurt with 1 tbsp huff Limit [...] pickled beets 9. Limit the frappachinos from [employer], try a cold brew coffee in the hot weather Call Sleep medicine: [phone] documented as of this encounter Visit Diagnoses Diagnosis Class 3 severe obesity with serious comorbidity and body mass index (BMI) of 40.0 to 44.9 in adult, unspecified obesity type documented in this encounter Care Teams Mill Set Up Relationship Specialty Start Date End Date Jane Hector APRN [address] [place] [address] PCP - General Geriatric Medicine 07/18/23 documented as of this encounter
--- OUTSIDE RECORDS SUMMARY | 2024-05-29 02:27 | XMS_ITS | Encounter Summary ---
[place] [address] Care Team Providers Care Roll Icer Machine Name Role Phone Jane Hector APRN Primary Care Provider [phone] Reason for Visit * Reason Onset Date Comments Medication Refill 07/18/2023 Encounter Details Date Type Department Care Team (Late st Contact Info) Description 07/18/2023 Refill [place] [address] Gina Gillespie RN Social History Tobacco Use Types Packs/Day Years Used Date Smoking Tobacco: Never Smokeless Tobacco: Never Sex and Gender Information Value Date Recorded Sex Assigned at Female 08/24/2023 3:35 PM EDT Gender Identity Female 08/24/2023 3:29 PM EDT Sexual Orientation Straight 08/24/2023 3: 35 PM EDT documented as of this encounter Miscellaneous Notes * Telephone Encounter - Gina Gillespie RN - 07/18/2023 8:19 AM EDT Called pt and left detailed message. Dr. Jesus wants you to stay at 12.5 mg of Mounjaro for 1 more month to see if the hives settle down. You should have refill at your pharmacy. Please let me know if that is not the case. I have updated your primary provider in her chart. Please check to make sure it is correct. * Telephone Encounter - Gina Gillespie RN - 07/18/2023 8:03 AM EDT Pt called asking for an increased dose of Mounjaro from 12.5 to 15 mg. She needs it sent to [place] pharmacy. She is out and takes her next dose on . Also she has inflamed itchy hives on her legs from the increased dose of Mounjaro. Her PCP recommends that she take loratadine for it. Her PCP is not the listed PCP it is Jane Reid and would like that changed in the portal or instructions on how to do that. documented in this encounter Plan of Treatment Upcoming Encounters Date Type Department Care Team (Late st Contact Info) Description 07/04/2024 12:00 PM EDT Office Visit [place] [address] Yamile Jesus MD [facility] [place] [address] 09/09/2024 3:00 PM EST TH Visit (TeleHealth) Sleep Center at [place] [address] [place] [address] Kaia Becker APRN [facility] [place] [place] [address] documented as of this encounter Visit Diagnoses Not on filedocumented in this encounter Care Teams Roll Icer Machine Relationship Specialty Start Date End Date Jane Hector APRN [address] [facility] [place] [address] PCP - General Geriatric Medicine 07/18/23 documented as of this encounter
--- OUTSIDE RECORDS SUMMARY | 2024-05-29 02:27 | XMS_ITS | Encounter Summary ---
[place] [address] Care Team Providers Care Plasma Center Technician Name Role Phone Yissel Guerra APRN Primary Care Provider [phone] Encounter Details Date Type Department Care Team (Latest Contact Info) Description 06/07/2023 Travel Social History Tobacco Use Types Packs/Day [...] EDT Office Visit Weight [place] [address] Yamile Jesus MD [facility] [place] [address] 09/09/2024 3:00 PM EST TH Visit (TeleHealth) Sleep Center at [facility] [address] [place] [address] Kaia Becker APRN [facility] [place] [place] [address] documented as of this encounter Visit Diagnoses Not on filedocumented in this encounter Care Teams Plasma Center Technician Relationship Specialty Start Date End Date Yissel Guerra APRN PCP - General Family Medicine 07/04/22 07/17/23 documented as of this encounter
--- OUTSIDE RECORDS SUMMARY | 2024-05-29 02:27 | XMS_ITS | Encounter Summary ---
[place] [address] Care Team Providers Care Act English Tutor Name Role Phone Yissel Guerra APRN Primary Care Provider [phone] Encounter Details Date Type Department Care Team (Late st Contact Info) Description 06/02/2023 Telephone [place] [address] Celia Mike Social History Tobacco Use Types Packs/Day Years Used Date Smoking Tobacco: Never Smokeless Tobacco: Never Sex and Gender Information Value Date Recorded Sex Assigned at Female 08/24/2023 3:35 PM EDT Gender Identity Female 08/24/2023 3:29 PM EDT Sexual Orientation Straight 08/24/2023 3: 35 PM EDT documented as of this encounter Miscellaneous Notes * Telephone Encounter - Celia Mike - 06/02/2023 9:30 AM EDT Left message. We can offer her an earlier appointment with Elizabeth. It can either be in person or telehealth. If she does not want to move her appointment that is also fine. Please let me know either way. documented in this encounter Plan of Treatment Upcoming Encounters Date Type Department Care Team (Late st Contact Info) Description 07/04/2024 12:00 PM EDT Office Visit [place] [address] Yamile Jesus MD [facility] [address] [facility] [facility] [address] 09/09/2024 3:00 PM EST TH Visit (TeleHealth) Sleep Center at [address] [place] [address] Kaia Becker APRN [facility] [place] [address] documented as of this encounter Visit Diagnoses Not on filedocumented in this encounter Care Teams Act English Tutor Relationship Specialty Start Date End Date Yissel Guerra APRN PCP - General Family Medicine 07/04/22 07/17/23 documented as of this encounter
--- OUTSIDE RECORDS SUMMARY | 2024-05-29 02:27 | XMS_ITS | Encounter Summary ---
[place] [address] Care Team Providers Care Incinerator Attendant Name Role Phone Jane Hector APRN Primary Care Provider [phone] Reason for Visit * Reason Onset Date Comments Medication Refill 01/09/2024 Encounter Details Date Type Department Care Team (Late st Contact Info) Description 01/09/2024 Refill [place] [phone] Yamile Jesus MD [facility] [address] [facility] [place] [address] Type 2 diabetes mellitus without complication, unspecified whether residential insulin use Social History Tobacco Use Types Packs/Day Years Used Date Smoking Tobacco: Never Smokeless Tobacco: Never Sex and Gender Information Value Date Recorded Sex Assigned at Female 08/24/2023 3:35 PM EDT Gender Identity Female 08/24/2023 3:29 PM EDT Sexual Orientation Straight 08/24/2023 3: 35 PM EDT documented as of this encounter Miscellaneous Notes * Telephone Encounter - Gina Gillespie RN - 01/09/2024 3:47 PM EDT Called and left message for pt with an update. There is a prescription for Ozempic ready for Dr. Jesus to send in when she is done with patients. I did check and the [facility] in [place] doeshave it in stock and it will be sent there. I checked with the PA team and one is not needed. You should be all set once Dr. Jesus is done with patients and can send in your prescription. * Telephone Encounter - Kasi Nagy - 01/09/2024 3:04 PM EDT Message: Patient calling in to check the status, Stated there is a note on the chart to only speak with the nurses, Patient was mildly frustrated with this agent for no apparent reason with this encounter. This agent was unable to find such note. Please call to advise patient on information for prescription. Ask caller their first and last name and relationship to the patient: Shane - Jes Bello Best time to call back: Any Ok to leave a message: Yes Ok to send - message: No Offered Appointment: N/A Message: Yes Call:No Pager:No documented in this encounter Plan of Treatment Upcoming Encounters Date Type Department Care Team (Late st Contact Info) Description 07/04/2024 12:00 PM EDT Office Visit [place] [address] Yamile Jesus MD [facility] [place] [address] 09/09/2024 3:00 PM EST TH Visit (TeleHealth) Sleep Center at [place] [address] [place] [address] Kaia Becker APRN [facility] [place] [address] documented as of this encounter Goals Goal [...] and frozen broccoli) with sharp cheddar or cymro cheese (if you want) with piece of [...] pickled beets 9. Limit the frappachinos from [employer], try a cold brew coffee in the hot weather Call Sleep medicine: [phone] documented as of this encounter Visit Diagnoses Diagnosis Type 2 diabetes mellitus without complication, unspecified whether residential insulin use documented in this encounter Care Teams Incinerator Attendant Relationship Specialty Start Date End Date Jane Hector APRN [address] [place] [address] PCP - General Geriatric Medicine 07/18/23 documented as of this encounter
--- OUTSIDE RECORDS SUMMARY | 2024-05-29 02:27 | XMS_ITS | Encounter Summary ---
[place] [address] Care Team Providers Care Computed Tomography Technician Name Role Phone Jane Hector APRN Primary Care Provider [phone] Reason for Visit * Reason Onset Date Comments Medication Problem 09/01/2023 Encounter Details Date Type Department Care Team (Late st Contact Info) Description 09/01/2023 Telephone [place] [address] Gina Gillespie crystal calibrator Problem Social History Tobacco Use Types Packs/Day Years Used Date Smoking Tobacco: Never Smokeless Tobacco: Never Sex and Gender Information Value Date Recorded Sex Assigned at Female 08/24/2023 3:35 PM EDT Gender Identity Female 08/24/2023 3:29 PM EDT Sexual Orientation Straight 08/24/2023 3: 35 PM EDT documented as of this encounter Miscellaneous Notes * Telephone Encounter - Gnia Gillespie RN - 09/01/2023 2:07 PM EST Pt called and left a detailed message that [facility] is telling her that she can not citrus picker her Mounjaro 15 mg until 09/11. They do have some in stock but will sell it if someone needs it. They willbe getting more in on 09/08. If it is time for her to get it and it is not available at [facility] they can call across the street to [facility] and transfer it if they have it in stock. Pt wanted us toknow that she still does not have the Mounjaro 15 mg yet. documented in this encounter Plan of Treatment Upcoming Encounters Date Type Department Care Team (Late st Contact Info) Description 07/04/2024 12:00 PM EDT Office Visit [place] [address] Yamile Jesus MD [facility] [place] [address] 09/09/2024 3:00 PM EST TH Visit (TeleHealth) Sleep Center at [facility] [address] [place] [phone] Kaia Becker APRN [facility] [place] [address] documented as of this encounter Goals Goal [...] and frozen broccoli) with sharp cheddar or pakistani cheese (if you want) with piece of [...] pickled beets 9. Limit the frappachinos from [facility], try a cold brew coffee in the hot weather Call Sleep medicine: [phone] documented as of this encounter Visit Diagnoses Not on filedocumented in this encounter Care Teams Computed Tomography Technician Relationship Specialty Start Date End Date Jane Hector [place] [address] [place] [address] PCP - General Geriatric Medicine 07/18/23 documented as of this encounter
--- OUTSIDE RECORDS SUMMARY | 2024-05-29 02:27 | XMS_ITS | Encounter Summary ---
[place] [address] Care Team Providers Care Family Readiness Support Assistant Name Role Phone Jane Hector APRN Primary Care Provider [phone] Encounter Details Date Type Department Care Team (Late st Contact Info) Description 09/20/2023 Telephone Weight [place] [phone] Gina Gillespie RN Social History Tobacco Use Types Packs/Day Years Used Date Smoking Tobacco: Never Smokeless Tobacco: Never Sex and Gender Information Value Date Recorded Sex Assigned at Female 08/24/2023 3:35 PM EDT Gender Identity Female 08/24/2023 3:29 PM EDT Sexual Orientation Straight 08/24/2023 3: 35 PM EDT documented as of this encounter Miscellaneous Notes * Telephone Encounter - Gina Gillespie RN - 09/20/2023 12:44 PM EST Called and left message for pt. Dr. Jesus is unable to prescribe sleep medication for her. If her PCP is unable to do so, maybe she can ask for a referral to sleep medicine and they will be ableto help her. * Telephone Encounter - Gina Gillespie RN - 09/20/2023 11:41 AM EST Pt called and left a message asking that Dr. Jesus prescribe sleep medication. She has tried everything over the counter and it worked for a second and then stops. She asked her PCP, who said she would not. She also asked her psychotropic doctor a prescribed Rosarum. She has been taking it for over a week, almost two and it is not working. She is not sleeping at all and she needs sleep. She has not slept in weeks. Runs in her family for generations. Please leave a detailed message. documented in this encounter Plan of Treatment Upcoming Encounters Date Type Department Care Team (Late st Contact Info) Description 07/04/2024 12:00 PM EDT Office Visit [place] [address] Yamile Jesus MD [facility] [place] [address] 09/09/2024 3:00 PM EST TH Visit (TeleHealth) Sleep Center at [facility] [address] [place] [address] Kaia Becker APRN [facility] [place] [address] documented as of this encounter Goals Goal [...] grams of protein) Option 2: plain yogurt, malawian has more protein with small amount of [...] Option 2: tuna salad with 2 tbsp malawian plain yogurt with 2 tbsp huff over spinach or lettuce If needed, Snack: All 10 grams of protein Option 1: hummus and raw vegetable and crackers (wheat thin) Option 2: cottage cheese (3/4 cup) with chives Option 3: grapes with nuts Other Nutrition Goals 60 grams of protein per day 20-25 grams of fiber per day Huff - 1 tbsp malawian plain yogurt with 1 tbsp huff Limit [...] in the hot weather Call Sleep medicine: [phone] documented as of this encounter Visit Diagnoses Not on filedocumented in this encounter Care Teams Family Readiness Support Assistant Relationship Specialty Start Date End Date Jane Hector APRN [address] [place] [address] PCP - General Geriatric Medicine 07/18/23 documented as of this encounter
--- OUTSIDE RECORDS SUMMARY | 2024-05-29 02:27 | XMS_ITS | Encounter Summary ---
[place] [address] Care Team Providers Care Electrical Development Engineer Name Role Phone Jane Hector APRN Primary Care Provider [phone] Reason for Visit * Reason Onset Date Comments Medication Refill 09/29/2023 Encounter Details Date Type Department Care Team (Late st Contact Info) Description 09/29/2023 Telephone [place] [address] Gina Gillespie filler shaker Refill Social History Tobacco Use Types Packs/Day Years Used Date Smoking Tobacco: Never Smokeless Tobacco: Never Sex and Gender Information Value Date Recorded Sex Assigned at Female 08/24/2023 3:35 PM EDT Gender Identity Female 08/24/2023 3:29 PM EDT Sexual Orientation Straight 08/24/2023 3: 35 PM EDT documented as of this encounter Miscellaneous Notes * Telephone Encounter - Gina Gillespie RN - 09/29/2023 3:01 PM EST Pt called to say she might need a refill of her Mounjaro 15 mg. She is not sure if there are any onher prescription. If not please send one in. She takes her shots on . Sent pt [facility] message she has 3 refills. documented in this encounter Plan of Treatment Upcoming Encounters Date Type Department Care Team (Late st Contact Info) Description 07/04/2024 12:00 PM EDT Office [place] [address] Yamile Jesus MD [facility] [address] [facility] [address] 09/09/2024 3:00 PM EST TH Visit (TeleHealth) Sleep Center at [facility] [address] [place] [address] Kaia Becker APRN [facility] [place] [place] [address] documented as of this encounter Goals Goal [...] and frozen broccoli) with sharp cheddar or uzbek cheese (if you want) with piece of fruit (20-25 grams of protein) Option 2: plain yogurt, lao has more protein with small amount of [...] Option 2: tuna salad with 2 tbsp lao plain yogurt with 2 tbsp huff over spinach or lettuce If needed, Snack: All 10 grams of protein Option 1: hummus and raw vegetable and crackers (wheat thin) Option 2: cottage cheese (3/4 cup) with chives Option 3: grapes with nuts Other Nutrition Goals 60 grams of protein per day 20-25 grams of fiber per day Huff - 1 tbsp lao plain yogurt with 1 tbsp huff Limit [...] in the hot weather Call Sleep medicine: [phone] documented as of this encounter Visit Diagnoses Not on filedocumented in this encounter Care Teams Electrical Development Engineer Relationship Specialty Start Date End Date Jane Hector APRN [address] [place] [address] PCP - General Geriatric Medicine 07/18/23 documented as of this encounter
--- OUTSIDE RECORDS SUMMARY | 2024-05-29 02:27 | XMS_ITS | Encounter Summary ---
[place] [address] Care Team Providers Care Wood Tile Installation Helper Name Role Phone Jane Hector APRN Primary Care Provider [phone] Reason for Visit * Reason Onset Date Comments Medication Problem 08/07/2023 Medication Reaction 08/07/2023 Encounter Details Date Type Department Care Team (Late st Contact Info) Description 08/07/2023 Telephone [place] [address] Gina Gillespie mud jack operator Problem; Medication Reaction Social History Tobacco Use Types Packs/Day Years Used Date Smoking Tobacco: Never Smokeless Tobacco: Never Sex and Gender Information Value Date Recorded Sex Assigned at Female 08/24/2023 3:35 PM EDT Gender Identity Female 08/24/2023 3:29 PM EDT Sexual Orientation Straight 08/24/2023 3: 35 PM EDT documented as of this encounter Miscellaneous Notes * Telephone Encounter - Gina Gillespie RN - 08/07/2023 11:57 AM EDT Called pt and left detailed message. Dr. Jesus wants her to decrease her Mounjaro to 10 mg andcheck back in in 3 weeks to see how she is doing. * Telephone Encounter - Gina Gillespie RN - 08/07/2023 11:55 AM EDT Pt called. And left message. She is finishing her 3rd dose of Mounjaro 12.5 mg. She is still havingsome itching. She is wondering if she should stay at the 12.5 or decrease to 10 mg. She has a full box of 10 mg in the fridge. documented in this encounter Plan of Treatment Upcoming Encounters Date Type Department Care Team (Late st Contact Info) Description 07/04/2024 12:00 PM EDT Office Visit [place] [address] Yamile Jesus MD [facility] [place] [address] 09/09/2024 3:00 PM EST TH Visit (TeleHealth) Sleep Center at [facility] [address] [place] [address] Kaia Becker APRN [facility] [place] [place] [address] documented as of this encounter Visit Diagnoses Not on filedocumented in this encounter Care Teams Wood Tile Installation Helper Relationship Specialty Start Date End Date Jane Hector APRN [address] [place] [address] PCP - General Geriatric Medicine 07/18/23 documented as of this encounter
--- OUTSIDE RECORDS SUMMARY | 2024-05-29 02:27 | XMS_ITS | Encounter Summary ---
[place] [address] Care Team Providers Care Traffic Counter Name Role Phone Jane Hector APRN Primary Care Provider [phone] Encounter Details Date Type Department Care Team (Late st Contact Info) Description 10/18/2023 Telephone [place] [address] Yamile Jesus MD [facility] [address] [facility] [address] Social History Tobacco Use Types Packs/Day Years Used Date Smoking Tobacco: Never Smokeless Tobacco: Never Sex and Gender Information Value Date Recorded Sex Assigned at Female 08/24/2023 3:35 PM EDT Gender Identity Female 08/24/2023 3:29 PM EDT Sexual Orientation Straight 08/24/2023 3: 35 PM EDT documented as of this encounter Miscellaneous Notes * Telephone Encounter - Lyndsay Crenshaw - 10/18/2023 12:10 PM EST Patient calling in for 2 Reasons today first she would like provider to know labs are scanned into media for provider to review and the second is in October a PA will be needed for medication Mounjaro 12.5 mg/0.5 mL Pen Injector Medication Prior Authorization Request Medication or supply: Mounjaro 12.5 mg/0.5 mL Pen Injector Insurance Company: [facility] [id number] [facility] [id number] Patient disconnected before any other info could be obtained documented in this encounter Plan of Treatment Upcoming Encounters Date Type Department Care Team (Late st Contact Info) Description 07/04/2024 12:00 PM EDT Office Visit [place] [address] Yamile Jesus MD [facility] [place] [address] 09/09/2024 3:00 PM EST TH Visit (TeleHealth) Sleep Center at [facility] [address] [place] [address] Kaia Becker APRN [facility] [place] [address] documented as of this encounter Goals Goal [...] and frozen broccoli) with sharp cheddar or moroccan cheese (if you want) with piece of [...] pickled beets 9. Limit the frappachinos from [email or web address], try a cold brew coffee in the hot weather Call Sleep medicine: [phone] documented as of this encounter Visit Diagnoses Not on filedocumented in this encounter Care Teams Traffic Counter Relationship Specialty Start Date End Date Jane Hector APRN [address] [facility] [place] [address] PCP - General Geriatric Medicine 07/18/23 documented as of this encounter
--- OUTSIDE RECORDS SUMMARY | 2024-05-29 02:27 | XMS_ITS | Encounter Summary ---
Author Organization [facility] [address] Care Team Providers Care Kiln Fireman Name Role Phone Jane Hector APRN Primary Care Provider [phone] Encounter Details Date Type Department Care Team (Late st Contact Info) Description 11/01/2023 10:30 AM EST TH Visit (TeleHealth) [place] [phone] Gina Mendez RD [facility] [place] [address] Adult BMI 40.0-44.9 kg/sq m Social History Tobacco Use Types Packs/Day Years Used Date Smoking Tobacco: Never Smokeless Tobacco: Never Sex and Gender Information Value Date Recorded Sex Assigned at Female 08/24/2023 3:35 PM EDT Gender Identity Female 08/24/2023 3:29 PM EDT Sexual Orientation Straight 08/24/2023 3: 35 PM EDT documented as of this encounter Last Filed Vital Signs Vital Sign Reading Time Taken Comments Blood Pressure - - Pulse - - Temperature - - Respiratory Rate - - Oxygen Saturation - - Inhaled Oxygen Concentration - - Weight 117.9 kg (260 lb) 11/01/2023 9:00 AM EST Height - - Body Mass Index 44.63 10/06/2023 11:38 AM EST documented in this encounter Patient Instructions * Patient Instructions* Gina Mendez, DANIAL - 11/01/2023 10:30 AM EST It was great to chat with youJes. Below are goals discussed today as well as in past visits. Please reach out with a [place] [employer] message if you have any questions or [...] quinoa, oatmeal). Meal Timing Brunch: 10am - 11/01/2023- Not usually eating with 15mg tirzepatide Lunch: 12-2pm - Meals on Wheels Dinner: 5-7pm Meal Structure Brunch: Option 1: egg (3) with vegetables (frozen peppers and frozen broccoli) with sharp cheddar or chinese cheese (if you want) with piece of fruit (20-25 grams of protein) Option 2: plain yogurt, [place] citizen has more protein with small amount [...] Option 2: tuna salad with 2 tbsp [place] citizen plain yogurt with 2 tbsp huff over spinach or lettuce If needed, Snack: All 10 grams of protein Option 1: hummus and raw vegetable and crackers (wheat thin) Option 2: cottage cheese (3/4 cup) with chives Option 3: grapes with nuts Other Nutrition Goals 60 grams of protein per day 20-25 grams of fiber per day Huff - 1 tbsp [place]chten[place] citizen plain yogurt with 1 tbsp huff Limit the sweet treats to dark chocolate. Freeze portions of dark chocolate. Try to eat fruit as a carbohydrate instead of rice crispy cereal or bread. documented in this encounter Progress Notes * Gina Mendez RD - 11/01/2023 10:30 AM ESTSummary: [facility] RD follow-up Nutrition Intervention for Weight Management Follow-up RD visit with Jes BelloCARO 1960 Location: Telephone [facility] care team: Yamile Jesus Weight Today: 260 lb (reported) Wt Readings from Last 3 Encounters: 11/01/23 117.9 kg (260 lb) 10/06/23 118.8 kg (261 lb 14.4 oz) 08/11/23 117.5 kg (259 lb) BMI Readings from Last 3 Encounters: 11/01/23 44.63 kg/m?? 10/06/23 44.96 kg/m?? 08/11/23 44.46 kg/m?? Pertinent Anti-Obesity Medications: tirzepatide - 15 mg // bupropion Interview: It was a pleasure speaking with Jes [facility]. Jes lost 33lb since starting the medication, however is upset with the recent stalling of her weight loss (noweight loss since August). She is concerned that her medication (tizepatide 15mg) is not working.We discussed other health aspects (decreased cravings, more stable feelings of fatigue due to low blood sugar, HbA1c 8.1% to 6.5%), however she replied that she is not going to HbA1c [facility] and would like to lose weight to make her feel better. Dr. Jesus hasbeen speaking with her about other options at their visits. Jes strongly asked this provider about other medications and procedures, however this provider encouraged Jes to continue to speak withDr. Jesus, as medication recommendation is out of the RD scope. Jes is still having trouble with sleeping. She has a consult with Sleep medicine in March, which she hopes to move up earlier. Jes has transitioned to mainly 2 large meals per day. I encouraged her to have a morning snack and 2 normal sized meals (see goals), however, she mentions that she cannot eat anything prior to 12pm because she does not feel hungry. I'm uncertain is she will be able to transition to any other eating plan compared to 2 large meals. She is persistent at having simple carbohydrates (bread, rice crispys) as part of her daily intake because If I don't eat any carbohydrates, I feel weak and am hungry. I ate the cereal because Iwas hungry and need the carbohydrates RD discussed options of eating more frequently to balance blood sugar, eating sooner, and eating other complex carbohydrates, however Jes was persistent on eating simple carbohydrates as the solution to any weakness or hunger Jes asked questions regarding collagen supplements and foods high in collagen. The RD discussed that lack of evidence that collagen supplementation (oral) localizes in the skin. RD discussed overall skin health with a balanced diet. RD suggested making a mamma logist appointment or discussed collagen concerns with PCP. Food Trackin11/01/2023- Jes is going to try to track with paper - patient brought up goal. Typical Dietary Intake: Jes typically has 2-3 meals, depending on hunger. Lunch: meals on wheels - green beans, mashed potato with gravy, and beef tips with gravy Time: 12-2pm Dinner: 3/4 cup black beans with 8oz white fish with bowl of rice crispy cereal with milk (2-3 cups) Time: 5-7pm Location: home Eating after dinner? [...] juice [x] Milk - 8-10 oz, whole milk, not every day [] Alcohol [...] limitations of caloric restriction and under eating [] Drinking an appropriate amount of fluids for your body [] Grazing / skipping / restricting [x] Eating in the absence of hunger [] Scheduled times / frequency of eating [x] Reduce highly processed foods, refined carbohydrates, in favor of whole foods [] Heart healthy fats [] Reduce sweet taste in your diet (whether by sugar or non-nutritive sweeteners) [] Increase fruits and non-starchy veggies [x] Increase fiber through f&v, nuts/seeds, whole grains, [...] of processed foods and refined carbohydrates. - Continues Inadequate protein intake. - Patient is prioritizing fish often, which is helping with her protein goals. She is meeting goals more often. Inadequate fiber intake. - Continues Barriers: Availability of foods and inability to [...] quinoa, oatmeal). Meal Timing Brunch: 10am - 11/01/2023- Not usually eating with 15mg tirzepatide Lunch: 12-2pm - Meals on Wheels Dinner: 5-7pm Meal Structure Brunch: Option 1: egg (3) with vegetables (frozen peppers and frozen broccoli) with sharp cheddar or chinese cheese (if you want) with piece of fruit (20-25 grams of protein) Option 2: plain yogurt, [place] citizen has more protein with small amount [...] Option 2: tuna salad with 2 tbsp [place] citizen plain yogurt with 2 tbsp huff over spinach or lettuce If needed, Snack: All 10 grams of protein Option 1: hummus and raw vegetable and crackers (wheat thin) Option 2: cottage cheese (3/4 cup) with chives Option 3: grapes with nuts Other Nutrition Goals 60 grams of protein per day 20-25 grams of fiber per day Huff - 1 tbsp [place] citizen plain yogurt with 1 tbsp huff Limit the sweet treats to dark chocolate. Freeze portions of dark chocolate. Try to eat fruit as a carbohydrate instead of rice crispy cereal or bread. Handouts provided today: Fiber rich foods This encounter is [facility] Registered Dietitian visit number [] 1 [] 2 [x] 3 [] ?4 Monitor/Evaluate: Return in about 4 weeks (around 11/29/2023) for nilesh HAWTHORNE, 30 min, Selam Mendez, in the afternoon. Thank you, Gina Mendez PhD, RD, LD 30 minutes were spent [id number] with this patient today, whether in person or by zoom as specified above documented in this encounter Plan of Treatment Upcoming Encounters Date Type Department Care Team (Late st Contact Info) Description 07/04/2024 12:00 PM EDT Office Visit Weight [place] [phone] Yamile Jesus MD [facility] [place] [address] 09/09/2024 3:00 PM EST TH Visit (TeleHealth) Sleep Center at [facility] [address] [place] [address] Kaia Becker APRN [facility] [place] [address] documented as of this encounter Goals Goal [...] and frozen broccoli) with sharp cheddar or chinese cheese (if you want) with piece of fruit (20-25 grams of protein) Option 2: plain yogurt, [place] citizen has more protein with small amount [...] Option 2: tuna salad with 2 tbsp [place] citizen plain yogurt with 2 tbsp huff over spinach or lettuce If needed, Snack: All 10 grams of protein Option 1: hummus and raw vegetable and crackers (wheat thin) Option 2: cottage cheese (3/4 cup) with chives Option 3: grapes with nuts Other Nutrition Goals 60 grams of protein per day 20-25 grams of fiber per day Huff - 1 tbsp [place] citizen plain yogurt with 1 tbsp huff [...] beets 9. Limit the frappachinos from [employer], try a cold brew coffee in the hot weather Call Sleep medicine: [phone] documented as of this encounter Visit Diagnoses Diagnosis Adult BMI 40.0-44.9 kg/sq m Body Mass Index 40.0-44.9, adult documented in this encounter Care Teams Kiln Fireman Relationship Specialty Start Date End Date Jane Hector APRN [address] [place] [address] PCP - General Geriatric Medicine 07/18/23 documented as of this encounter
--- OUTSIDE RECORDS SUMMARY | 2024-05-29 02:27 | XMS_ITS | Encounter Summary ---
Author Organization [facility] [place] [address] Care Team Providers Care Sales Representative Cash Registers Name Role Phone Jane Hector ZACK Primary Care Provider [phone] Encounter Details Date Type Department Care Team (Latest Contact Info) Description 10/01/2023 Travel Social History Tobacco Use Types Packs/Day [...] EDT Office [place] [address] Yamile Jesus MD [facility] [place] [address] 09/09/2024 3:00 PM EST TH Visit (TeleHealth) Sleep Center at [facility] [address] [place] [address] Kaia Becker APRN [facility] [place] [address] documented as of this encounter Goals Goal [...] broccoli) with sharp cheddar or citizen of [place] cheese (if you want) with piece of fruit (20-25 grams of protein) Option 2: plain yogurt, kenyan has more protein with small amount of [...] Option 2: tuna salad with 2 tbsp kenyan plain yogurt with 2 tbsp huff over spinach or lettuce If needed, Snack: All 10 grams of protein Option 1: hummus and raw vegetable and crackers (wheat thin) Option 2: cottage cheese (3/4 cup) with chives Option 3: grapes with nuts Other Nutrition Goals 60 grams of protein per day 20-25 grams of fiber per day Huff - 1 tbsp kenyan plain yogurt with 1 tbsp huff Limit [...] pickled beets 9. Limit the frappachinos from [employer], try a cold brew coffee in the hot weather Call Sleep medicine: [phone] documented as of this encounter Visit Diagnoses Not on filedocumented in this encounter Care Teams Sales Representative Cash Registers Relationship Specialty Start Date End Date Jane Hector APRN [address] [place] [address] PCP - General Geriatric Medicine 07/18/23 documented as of this encounter
--- OUTSIDE RECORDS SUMMARY | 2024-05-29 02:27 | XMS_ITS | Encounter Summary ---
Author Organization [facility] [place] [address] Care Team Providers Care Licensed Mortician Name Role Phone Jane Hector ZACK Primary Care Provider [phone] Encounter Details Date Type Department Care Team (Latest Contact Info) Description 10/06/2023 Travel Social History Tobacco Use Types Packs/Day [...] EDT Office Visit [place] [address] Yamile Jesus MD [facility] [place] [address] 09/09/2024 3:00 PM EST TH Visit (TeleHealth) Sleep Center at [facility] [address] [place] [address] Kaia Becker APRN [facility] [place] [address] documented as of this encounter Goals Goal [...] and frozen broccoli) with sharp cheddar or salvadorean cheese (if you want) with piece of [...] pickled beets 9. Limit the frappachinos from [employer], try a cold brew coffee in the hot weather Call Sleep medicine: [phone] documented as of this encounter Visit Diagnoses Not on filedocumented in this encounter Care Teams Licensed Mortician Relationship Specialty Start Date End Date Jane Hector APRN [address] [place] [address] PCP - General Geriatric Medicine 07/18/23 documented as of this encounter
--- OUTSIDE RECORDS SUMMARY | 2024-05-29 02:27 | XMS_ITS | Encounter Summary ---
Author Organization [facility] [place] [address] Care Team Providers Care Web Machine Tender Name Role Phone Yissel Guerra APRN Primary Care Provider Encounter Details Date Type Department Care Team (Late st Contact Info) Description 06/22/2023 12:00 PM EDT Notes Only [place] [address] Social History Tobacco Use Types Packs/Day Years Used Date Smoking Tobacco: Never Smokeless Tobacco: Never Sex and Gender Information Value Date Recorded Sex Assigned at Female 08/24/2023 3:35 PM EDT Gender Identity Female 08/24/2023 3:29 PM EDT Sexual Orientation Straight 08/24/2023 3: 35 PM EDT documented as of this encounter Progress Notes * Laci Carolina - 06/22/2023 12:00 PM EDT Patient attended [facility] # 5 documented in this encounter Plan of Treatment Upcoming Encounters Date Type Department Care Team (Late st Contact Info) Description 07/04/2024 12:00 PM EDT Office Visit [place] [address] Yamile Jesus MD [facility] [address] [place] [address] 09/09/2024 3:00 PM EST TH Visit (TeleHealth) Sleep Center at [address] [place] [address] Kaia Becker APRN [facility] [place] [address] documented as of this encounter Visit Diagnoses Not on filedocumented in this encounter Care Teams Web Machine Tender Relationship Specialty Start Date End Date Yissel Guerra APRN PCP - General Family Medicine 07/04/22 07/17/23 documented as of this encounter
--- OUTSIDE RECORDS SUMMARY | 2024-05-29 02:27 | XMS_ITS | Encounter Summary ---
Author Organization [facility] [place] [address] Care Team Providers Care Slab Depiler Operator Name Role Phone Jane Hector APRN Primary Care Provider [phone] Reason for Visit * Reason Onset Date Comments Triage 09/18/2023 Encounter Details Date Type Department Care Team (Late st Contact Info) Description 09/18/2023 Telephone [place] [address] [facility] [address] NUTRITION SERVICES [place] [id number] Triage Social History Tobacco Use Types Packs/Day Years Used Date Smoking Tobacco: Never Smokeless Tobacco: Never Sex and Gender Information Value Date Recorded Sex Assigned at Female 08/24/2023 3:35 PM EDT Gender Identity Female 08/24/2023 3:29 PM EDT Sexual Orientation Straight 08/24/2023 3: 35 PM EDT documented as of this encounter Miscellaneous Notes * Telephone Encounter - Stefania Broussard - 09/21/2023 4:09 PM EST Patient calling again today to speak with Selam BARORW regarding possible low blood sugars, and what to eat when that occurs. Please return call to discuss. * Telephone Encounter - Pam Glass - 09/18/2023 4:47 PM EST Message: Patient calling stating they believe they are experiencing low blood sugar. Patient statedat times they are experiencing weakness in their muscles. Patient stated they usually get their [id number] from their PCP every 3 months. Patient stated they read that eating shredded wheat cereal is not the best and they have added that to their diet. Patient stated if you receive their voicemailto please leave a detailed message. Ask caller their first and last name and relationship to the patient: Jes eBllo Best time to call back: any Ok to leave a message: yes Ok to send [facility] message: yes Offered Appointment: n/a Message: X Call made to admin secretary or nurse Y/N n/a Pager: Y/N n.a documented in this encounter Plan of Treatment Upcoming Encounters Date Type Department Care Team (Late st Contact Info) Description 07/04/2024 12:00 PM EDT Office Visit [place] [address] Yamile Jesus MD [facility] [place] [address] 09/09/2024 3:00 PM EST TH Visit (TeleHealth) Sleep Center at [facility] [address] [place] [address] Kaia Becker APRN [facility] [place] [address] documented as of this encounter Goals Goal [...] and frozen broccoli) with sharp cheddar or ghanaian cheese (if you want) with piece of fruit (20-25 grams of protein) Option 2: plain yogurt, micronesian has more protein with small amount of [...] Option 2: tuna salad with 2 tbsp micronesian plain yogurt with 2 tbsp huff over spinach or lettuce If needed, Snack: All 10 grams of protein Option 1: hummus and raw vegetable and crackers (wheat thin) Option 2: cottage cheese (3/4 cup) with chives Option 3: grapes with nuts Other Nutrition Goals 60 grams of protein per day 20-25 grams of fiber per day Huff - 1 tbsp micronesian plain yogurt with 1 tbsp huff Limit [...] pickled beets 9. Limit the frappachinos from [employer], try a cold brew coffee in the hot weather Call Sleep medicine: [phone] documented as of this encounter Visit Diagnoses Not on filedocumented in this encounter Care Teams Slab Depiler Operator Relationship Specialty Start Date End Date Jane Hector APRN [address] [place] [address] PCP - General Geriatric Medicine 07/18/23 documented as of this encounter
--- OUTSIDE RECORDS SUMMARY | 2024-05-29 02:27 | XMS_ITS | Encounter Summary ---
[place] [address] Care Team Providers Care Managing Director Name Role Phone Jane Hector APRN Primary Care Provider [phone] Reason for Visit * Reason Onset Date Comments Medication Problem 08/08/2023 Encounter Details Date Type Department Care Team (Late st Contact Info) Description 08/08/2023 Telephone Weight [place] [address] Gina Gillespie wind development director Problem Social History Tobacco Use Types Packs/Day Years Used Date Smoking Tobacco: Never Smokeless Tobacco: Never Sex and Gender Information Value Date Recorded Sex Assigned at Female 08/24/2023 3:35 PM EDT Gender Identity Female 08/24/2023 3:29 PM EDT Sexual Orientation Straight 08/24/2023 3: 35 PM EDT documented as of this encounter Miscellaneous Notes * Telephone Encounter - Gina Gillespie RN - 08/08/2023 11:45 AM EDT Pt called and left message. She would like to know the rational for her to decrease from Mounjaro 12.5 mg to 10 mg. She has had 3 weeks of the Mounjaro 12.5 mg and her itching is mild. It is not as bad as it was and the inflammation on her leg has gone down. She is willing to decrease to 10 mg if you can convince her why she should. She doesn't see why she should if her inching is better. documented in this encounter Plan of Treatment Upcoming Encounters Date Type Department Care Team (Late st Contact Info) Description 07/04/2024 12:00 PM EDT Office Visit Weight [place] [address] Yamile Jesus MD [facility] [place] [address] 09/09/2024 3:00 PM EST TH Visit (TeleHealth) Sleep Center at [facility] [address] [place] [address] Kaia Becker APRN [facility] [place] [address] documented as of this encounter Visit Diagnoses Not on filedocumented in this encounter Care Teams Managing Director Relationship Specialty Start Date End Date Jane Hector APRN [address] [place] [address] PCP - General Geriatric Medicine 07/18/23 documented as of this encounter
--- OUTSIDE RECORDS SUMMARY | 2024-05-29 02:27 | XMS_ITS | Encounter Summary ---
[place] [address] Care Team Providers Care Chief Fundraising Officer Name Role Phone Jane Hector APRN Primary Care Provider [phone] Encounter Details Date Type Department Care Team (Late st Contact Info) Description 08/22/2023 Telephone [place] [address] Gina Gillespie RN Social History Tobacco Use Types Packs/Day Years Used Date Smoking Tobacco: Never Smokeless Tobacco: Never Sex and Gender Information Value Date Recorded Sex Assigned at Female 08/24/2023 3:35 PM EDT Gender Identity Female 08/24/2023 3:29 PM EDT Sexual Orientation Straight 08/24/2023 3: 35 PM EDT documented as of this encounter Miscellaneous Notes * Telephone Encounter - Gina Gillespie RN - 08/22/2023 11:40 AM EDT Called pt and left message per Dr. Jseus said that she can try them if she would like. Also reminded her of her apt with the registered dietitianGina for 08/30 at 4pm - virtual visit. * Telephone Encounter - Gina Gillespie RN - 08/22/2023 11:24 AM EDT Jes called and left a message for Dr. Jesus. She is currently on Mounjaro 12.5 mg since 15 mg is not available. She is still gaining weight and would like to know if she can take weight loss gummies, like the Oprah ones. documented in this encounter Plan of Treatment Upcoming Encounters Date Type Department Care Team (Late st Contact Info) Description 07/04/2024 12:00 PM EDT Office Visit [place] [address] Yamile Jesus MD [facility] [place] [address] 09/09/2024 3:00 PM EST TH Visit (TeleHealth) Sleep Center at [place] [address] [place] [address] Kaia Becker APRN [facility] [place] [address] documented as of this encounter Visit Diagnoses Not on filedocumented in this encounter Care Teams Chief Fundraising Officer Relationship Specialty Start Date End Date Jane Hector APRN [address] [place] [address] PCP - General Geriatric Medicine 07/18/23 documented as of this encounter
--- OUTSIDE RECORDS SUMMARY | 2024-05-29 02:27 | XMS_ITS | Encounter Summary ---
Author Organization Formerly [facility] [place] [address] Care Team Providers Care Social Insurance Administrator Name Role Phone Jane Hector ZACK Primary Care Provider [phone] Encounter Details Date Type Department Care Team (Latest Contact Info) Description 01/10/2024 Travel Social History Tobacco Use Types Packs/Day [...] EDT Office Visit [place] [address] Yamile Jesus MD [facility] [place] [address] 09/09/2024 3:00 PM EST TH Visit (TeleHealth) Sleep Center at [facility] [address] [place] [address] Kaia Becker APRN [facility] [place] [address] documented as of this encounter Goals Goal [...] and frozen broccoli) with sharp cheddar or macanese cheese (if you want) with piece of fruit (20-25 grams of protein) Option 2: plain yogurt, east timorese has more protein with small amount of [...] Option 2: tuna salad with 2 tbsp east timorese plain yogurt with 2 tbsp huff over spinach or lettuce If needed, Snack: All 10 grams of protein Option 1: hummus and raw vegetable and crackers (wheat thin) Option 2: cottage cheese (3/4 cup) with chives Option 3: grapes with nuts Other Nutrition Goals 60 grams of protein per day 20-25 grams of fiber per day Huff - 1 tbsp east timorese plain yogurt with 1 tbsp huff Limit [...] pickled beets 9. Limit the frappachinos from [facility], try a cold brew coffee in the hot weather Call Sleep medicine: [phone] documented as of this encounter Visit Diagnoses Not on filedocumented in this encounter Care Teams Social Insurance Administrator Relationship Specialty Start Date End Date Jane Hector APRN [address] [place] [address] PCP - General Geriatric Medicine 07/18/23 documented as of this encounter
--- OUTSIDE RECORDS SUMMARY | 2024-05-29 02:27 | XMS_ITS | Encounter Summary ---
[place] [address] Care Team Providers Care Boom Boss Name Role Phone Jane Hector APRN Primary Care Provider [phone] Reason for Visit * Reason Onset Date Comments Medication Refill 12/19/2023 Encounter Details Date Type Department Care Team (Late st Contact Info) Description 12/19/2023 Refill [place] [address] Yamile Jesus MD [facility] [place] [address] Type 2 diabetes mellitus without complication, unspecified whether fdc insulin use Social History Tobacco Use Types [...] EDT Office Visit [place] [address] Yamile Jesus MD [facility] [address] [address] 09/09/2024 3:00 PM EST TH Visit (TeleHealth) Sleep Center at [facility] [address] [place] [address] Kaia Becker APRN [facility] [place] [address] documented as of this encounter Goals Goal [...] and frozen broccoli) with sharp cheddar or ethiopian cheese (if you want) with piece of fruit (20-25 grams of protein) Option 2: plain yogurt, [place] has more protein with small amount of [...] 2: tuna salad with [address] [place] plain yogurt with 2 tbsp huff over spinach or lettuce If needed, Snack: All 10 grams of protein Option 1: hummus and raw vegetable and crackers (wheat thin) Option 2: cottage cheese (3/4 cup) with chives Option 3: grapes with nuts Other Nutrition Goals 60 grams of protein per day 20-25 grams of fiber per day Huff - [address] [place] lucian plain yogurt with 1 tbsp huff Limit [...] pickled beets 9. Limit the frappachinos from [facility], try a cold brew coffee in the hot weather Call Sleep medicine: [phone] documented as of this encounter Visit Diagnoses Diagnosis Type 2 diabetes mellitus without complication, unspecified whether buttermaker helper insulin use documented in this encounter Care Teams Boom Boss Relationship Specialty Start Date End Date Jane Hector APRN [address] [place] [address] PCP - General Geriatric Medicine 07/18/23 documented as of this encounter
--- OUTSIDE RECORDS SUMMARY | 2024-05-29 02:27 | XMS_ITS | Encounter Summary ---
Author Organization Formerly [facility] [place] [address] Care Team Providers Care Director International Name Role Phone Yissel Guerra APRN Primary Care Provider Encounter Details Date Type Department Care Team (Late st Contact Info) Description 06/15/2023 12:00 PM EDT Notes Only [place] [address] Social History Tobacco Use Types Packs/Day Years Used Date Smoking Tobacco: Never Smokeless Tobacco: Never Sex and Gender Information Value Date Recorded Sex Assigned at Female 08/24/2023 3:35 PM EDT Gender Identity Female 08/24/2023 3:29 PM EDT Sexual Orientation Straight 08/24/2023 3: 35 PM EDT documented as of this encounter Progress Notes * Laci Carolina - 06/15/2023 12:00 PM EDT Patient attended [facility] # 4 documented in this encounter Plan of Treatment Upcoming Encounters Date Type Department Care Team (Late st Contact Info) Description 07/04/2024 12:00 PM EDT Office Visit [place] [address] Yamile Jesus MD [facility] [address] [place] [address] 09/09/2024 3:00 PM EST TH Visit (TeleHealth) Sleep Center at [address] [place] [address] Kaia Becker APRN [facility] [place] [address] documented as of this encounter Visit Diagnoses Not on filedocumented in this encounter Care Teams Director International Relationship Specialty Start Date End Date Yissel Guerra APRN PCP - General Family Medicine 07/04/22 07/17/23 documented as of this encounter
--- OUTSIDE RECORDS SUMMARY | 2024-05-29 02:27 | XMS_ITS | Encounter Summary ---
[facility] [place] [address] Care Team Providers Care Manager Program Management Name Role Phone Jane Hector APRN Primary Care Provider [phone] Reason for Visit * Reason Onset Date Comments Medication Refill 12/06/2023 Encounter Details Date Type Department Care Team (Late st Contact Info) Description 12/06/2023 Refill [place] [address] Yamile Jesus MD [facility] [place] [address] Social History Tobacco Use Types Packs/Day Years [...] EDT Office Visit [place] [address] Yamile Jesus MD [facility] [place] [address] 09/09/2024 3:00 PM EST TH Visit (TeleHealth) Sleep Center at [facility] [address] [place] [address] Kaia Becker APRN [facility] [place] [address] documented as of this encounter Goals Goal [...] and frozen broccoli) with sharp cheddar or french cheese (if you want) with piece of fruit (20-25 grams of protein) Option 2: plain yogurt, mongolian has more protein with small amount of [...] Option 2: tuna salad with 2 tbsp mongolian plain yogurt with 2 tbsp huff over spinach or lettuce If needed, Snack: All 10 grams of protein Option 1: hummus and raw vegetable and crackers (wheat thin) Option 2: cottage cheese (3/4 cup) with chives Option 3: grapes with nuts Other Nutrition Goals 60 grams of protein per day 20-25 grams of fiber per day Huff - 1 tbsp mongolian plain yogurt with 1 tbsp huff Limit [...] 9. Limit the frappachinos from [facility], try a cold brew coffee in the hot weather Call Sleep medicine: [phone] documented as of this encounter Visit Diagnoses Not on filedocumented in this encounter Care Teams Manager Program Management Relationship Specialty Start Date End Date Jane Hector APRN [address] [place] [address] PCP - General Geriatric Medicine 07/18/23 documented as of this encounter
--- OUTSIDE RECORDS SUMMARY | 2024-05-29 02:27 | XMS_ITS | Encounter Summary ---
[place] [address] Care Team Providers Care Division Engineer Name Role Phone Jane Hector APRN Primary Care Provider Encounter Details Date Type Department Care Team (Late st Contact Info) Description 07/28/2023 Telephone [place] [address] Gina Gillespie RN Social History Tobacco Use Types Packs/Day Years Used Date Smoking Tobacco: Never Smokeless Tobacco: Never Sex and Gender Information Value Date Recorded Sex Assigned at Female 08/24/2023 3:35 PM EDT Gender Identity Female 08/24/2023 3:29 PM EDT Sexual Orientation Straight 08/24/2023 3: 35 PM EDT documented as of this encounter Miscellaneous Notes * Telephone Encounter - Gina Gillespie RN - 07/28/2023 8:58 AM EDT Jes called and left message that she has missed the last two classes because she was unable to connect with them. She has reached out to [employer] and has worked on her connection issues. She thinkjuni will be able to attend the upcoming class on Monday. She would like the providers know that she is sorry but working on it. She would also like Dr. Jessu to know that she says hi. documented in this encounter Plan of Treatment Upcoming Encounters Date Type Department Care Team (Late st Contact Info) Description 07/04/2024 12:00 PM EDT Office Visit [place] [address] Yamile Jesus MD [facility] [place] [address] 09/09/2024 3:00 PM EST TH Visit (TeleHealth) Sleep Center at [facility] [address] [place] [address] Kaia Becker APRN [facility] [place] [address] documented as of this encounter Visit Diagnoses Not on filedocumented in this encounter Care Teams Division Engineer Relationship Specialty Start Date End Date Jane Hector APRN [address] [place] [address] PCP - General Geriatric Medicine 07/18/23 documented as of this encounter
--- OUTSIDE RECORDS SUMMARY | 2024-05-29 02:27 | XMS_ITS | Encounter Summary ---
Author Organization [facility] [place] [address] Care Team Providers Care Butcher Scullion Name Role Phone Jane Hector APRN Primary Care Provider [phone] Reason for Visit * Reason Onset Date Comments Medication Problem 12/28/2023 Encounter Details Date Type Department Care Team (Late st Contact Info) Description 12/28/2023 Telephone [place] [address] Yamile Jesus MD [facility] [address] [place] [address] Medication Problem Social History Tobacco Use Types Packs/Day Years Used Date Smoking Tobacco: Never Smokeless Tobacco: Never Sex and Gender Information Value Date Recorded Sex Assigned at Female 08/24/2023 3:35 PM EDT Gender Identity Female 08/24/2023 3:29 PM EDT Sexual Orientation Straight 08/24/2023 3: 35 PM EDT documented as of this encounter Miscellaneous Notes * Telephone Encounter - Gina Gillespie RN - 12/28/2023 1:26 PM EST Change in pharmacy sent to provider. Message to pt. * Telephone Encounter - Stefania Broussard - 12/28/2023 12:34 PM EST Message: Patient calling today to check on status of tirzepatide (Mounjaro) 15 mg/0.5 mL Pen Injector refill. Prescription will need to go to [facility] in [facility]. Please see 12/18 patient message for reference. Ask caller their first and last name and relationship to the patient: Jes Bello Best time to call back: anytime Ok to leave a message: yes Ok to send [facility] message: yes Offered Appointment: NA Message: yes Call made to guidance secretary or nurse Y/N no Pager: Y/N no documented in this encounter Plan of Treatment Upcoming Encounters Date Type Department Care Team (Late st Contact Info) Description 07/04/2024 12:00 PM EDT Office Visit [place] [address] Yamile Jesus MD [facility] [place] [address] 09/09/2024 3:00 PM EST TH Visit (TeleHealth) Sleep Center at [facility] [address] [place] [address] Kaia Becker APRN [facility] [place] [address] documented as of this encounter Goals Goal [...] and frozen broccoli) with sharp cheddar or american cheese (if you want) with piece of fruit (20-25 grams of protein) Option 2: plain yogurt, marshallese has more protein with small amount of [...] Option 2: tuna salad with 2 tbsp marshallese plain yogurt with 2 tbsp huff over spinach or lettuce If needed, Snack: All 10 grams of protein Option 1: hummus and raw vegetable and crackers (wheat thin) Option 2: cottage cheese (3/4 cup) with chives Option 3: grapes with nuts Other Nutrition Goals 60 grams of protein per day 20-25 grams of fiber per day Huff - 1 tbsp marshallese plain yogurt with 1 tbsp huff Limit [...] pickled beets 9. Limit the frappachinos from [facility], try a cold brew coffee in the hot weather Call Sleep medicine: [phone] documented as of this encounter Visit Diagnoses Not on filedocumented in this encounter Care Teams Butcher Scullion Relationship Specialty Start Date End Date Jane Hector APRN [facility] [address] [place] [address] PCP - General Geriatric Medicine 07/18/23 documented as of this encounter
--- OUTSIDE RECORDS SUMMARY | 2024-05-29 02:27 | XMS_ITS | Encounter Summary ---
[place] [address] Care Team Providers Care Chief Engineering Division Name Role Phone Jane Hector APRN Primary Care Provider [phone] Reason for Visit * Reason Onset Date Comments Medication Refill 08/31/2023 Encounter Details Date Type Department Care Team (Late st Contact Info) Description 08/31/2023 Refill Weight [place] [address] Yamile Jesus MD [facility] [place] [address] Type 2 diabetes mellitus without complication, unspecified whether senior care insulin use Social History Tobacco Use Types [...] EDT Office Visit Weight [place] [address] Yamile Jesus MD [facility] [address] [place] [address] 09/09/2024 3:00 PM EST TH Visit (TeleHealth) Sleep Center at [facility] [address] [place] [address] Kaia Becker APRN [facility] [place] [address] documented as of this encounter Goals Goal [...] and frozen broccoli) with sharp cheddar or sierra leonean cheese (if you want) with piece of fruit (20-25 grams of protein) Option 2: plain yogurt, welsh has more protein with small amount of [...] Option 2: tuna salad with 2 tbsp welsh plain yogurt with 2 tbsp huff over spinach or lettuce If needed, Snack: All 10 grams of protein Option 1: hummus and raw vegetable and crackers (wheat thin) Option 2: cottage cheese (3/4 cup) with chives Option 3: grapes with nuts Other Nutrition Goals 60 grams of protein per day 20-25 grams of fiber per day Huff - 1 tbsp welsh plain yogurt with 1 tbsp huff Limit [...] Limit the frappachinos from [facility], try a cold brew coffee in the hot weather Call Sleep medicine: [phone] documented as of this encounter Visit Diagnoses Diagnosis Type 2 diabetes mellitus without complication, unspecified whether termite control representative insulin use documented in this encounter Care Teams Chief Engineering Division Relationship Specialty Start Date End Date Jane Hector APRN [address] [place] [address] PCP - General Geriatric Medicine 07/18/23 documented as of this encounter
--- OUTSIDE RECORDS SUMMARY | 2024-05-29 02:27 | XMS_ITS | Encounter Summary ---
Author Organization [facility] [place] [address] Care Team Providers Care Lacquer Sprayer Name Role Phone Yissel Guerra APRN Primary Care Provider Encounter Details Date Type Department Care Team (Late st Contact Info) Description 06/05/2023 5:30 PM EDT Notes [place] [address] Social History Tobacco Use Types Packs/Day Years Used Date Smoking Tobacco: Never Smokeless Tobacco: Never Sex and Gender Information Value Date Recorded Sex Assigned at Female 08/24/2023 3:35 PM EDT Gender Identity Female 08/24/2023 3:29 PM EDT Sexual Orientation Straight 08/24/2023 3: 35 PM EDT documented as of this encounter Progress Notes * Laci Carolina - 06/05/2023 5:30 PM EDT Patient attended [facility] # 3 documented in this encounter Plan of Treatment Upcoming Encounters Date Type Department Care Team (Late st Contact Info) Description 07/04/2024 12:00 PM EDT Office [place] [address] Yamile Jesus MD [facility] [address] [place] [address] 09/09/2024 3:00 PM EST TH Visit (TeleHealth) Sleep [facility] at [address] [place] [address] Kaia Becker APRN [facility] [place] [address] documented as of this encounter Visit Diagnoses Not on filedocumented in this encounter Care Teams Lacquer Sprayer Relationship Specialty Start Date End Date Yissel Guerra APRN PCP - General Family Medicine 07/04/22 07/17/23 documented as of this encounter
--- OUTSIDE RECORDS SUMMARY | 2024-05-29 02:27 | XMS_ITS | Encounter Summary ---
[place] [address] Care Team Providers Care Renal Nurse Name Role Phone Jane Hector APRN Primary Care Provider [phone] Reason for Visit * Reason Onset Date Comments Appointment 11/07/2023 Encounter Details Date Type Department Care Team (Late st Contact Info) Description 11/07/2023 Telephone [place] [address] Hollie Ambrose Appointment Social History Tobacco Use Types Packs/Day Years Used Date Smoking Tobacco: Never Smokeless Tobacco: Never Sex and Gender Information Value Date Recorded Sex Assigned at Female 08/24/2023 3:35 PM EDT Gender Identity Female 08/24/2023 3:29 PM EDT Sexual Orientation Straight 08/24/2023 3: 35 PM EDT documented as of this encounter Miscellaneous Notes * Telephone Encounter - Hollie Ambrose - 11/07/2023 10:42 AM EST Left voicemail/message and sent letter via [employer] portal about scheduling appointment(s) with Weightand Wellness provider(s). Call Center Scheduling: Please schedule appointment(s) from recalls placed in patients chart. Recalls can be with RD (Registered Dietitians) Please see in recall if the appointment [...] EDT Office Visit [place] [address] Yamile Jesus MD [facility] [address] [address] 09/09/2024 3:00 PM EST TH Visit (TeleHealth) Sleep Center at [facility] [address] [place] [address] Kaia Becker APRN [facility] [place] [address] documented as of this encounter Goals Goal [...] and frozen broccoli) with sharp cheddar or albanian cheese (if you want) with piece of fruit (20-25 grams of protein) Option 2: plain yogurt, niuean has more protein with small amount of [...] Option 2: tuna salad with 2 tbsp niuean plain yogurt with 2 tbsp huff over spinach or lettuce If needed, Snack: All 10 grams of protein Option 1: hummus and raw vegetable and crackers (wheat thin) Option 2: cottage cheese (3/4 cup) with chives Option 3: grapes with nuts Other Nutrition Goals 60 grams of protein per day 20-25 grams of fiber per day Huff - 1 tbsp niuean plain yogurt with 1 tbsp huff Limit [...] in the hot weather Call Sleep medicine: [phone] documented as of this encounter Visit Diagnoses Not on filedocumented in this encounter Care Teams Renal Nurse Relationship Specialty Start Date End Date Jane Hector APRN [facility] [place] [place] [address] PCP - General Geriatric Medicine 07/18/23 documented as of this encounter
--- OUTSIDE RECORDS SUMMARY | 2024-05-29 02:27 | XMS_ITS | Encounter Summary ---
Author Organization [facility] [place] [address] Care Team Providers Care Litigation Examiner Name Role Phone Jane Hector APRN Primary Care Provider [phone] Reason for Visit * Reason Onset Date Comments Medication Problem 11/07/2023 Encounter Details Date Type Department Care Team (Late st Contact Info) Description 11/07/2023 Telephone [place] [address] Yamile Jesus MD [facility] [address] [address] Medication Problem Social History Tobacco Use Types Packs/Day Years Used Date Smoking Tobacco: Never Smokeless Tobacco: Never Sex and Gender Information Value Date Recorded Sex Assigned at Female 08/24/2023 3:35 PM EDT Gender Identity Female 08/24/2023 3:29 PM EDT Sexual Orientation Straight 08/24/2023 3: 35 PM EDT documented as of this encounter Miscellaneous Notes * Telephone Encounter - Gina Gillespie RN - 11/13/2023 11:47 AM EST Communication through [facility] * Telephone Encounter - Rosaura Lyles - 11/07/2023 1:59 PM EST Pharmacy or caller: Patient Medication: Mounjaro Message: Patient was calling to see if she could go back to the Instamed[employer]unjaro 10ml, as she still has some remaining and would like to continue that since it was helping her loose weight, where her currentmedication does not. Please advise Did you contact your pharmacy?: No documented in this encounter Plan of Treatment Upcoming Encounters Date Type Department Care Team (Late st Contact Info) Description 07/04/2024 12:00 PM EDT Office Visit [place] [address] Yamile Jesus MD [facility] [place] [address] 09/09/2024 3:00 PM EST TH Visit (TeleHealth) Sleep Center at [facility] [address] [place] [address] Kaia Becker APRN [facility] [place] [address] documented as of this encounter Goals Goal [...] in the hot weather Call Sleep medicine: [phone] documented as of this encounter Visit Diagnoses Not on filedocumented in this encounter Care Teams Litigation Examiner Relationship Specialty Start Date End Date Jane Hector APRN [facility] [address] [address] [place] [address] PCP - General Geriatric Medicine 07/18/23 documented as of this encounter
--- OUTSIDE RECORDS SUMMARY | 2024-05-29 02:27 | XMS_ITS | Encounter Summary ---
[facility] Organization [facility] [place] [address] Care Team Providers Care Director Payment Name Role Phone Jane Hector APRN Primary Care Provider [phone] Encounter Details Date Type Department Care Team (Late st Contact Info) Description 08/11/2023 3:30 PM EDT Office [place] [address] Yamile Jesus MD [facility] [address] [facility] [facility] [address] Type 2 diabetes mellitus without complication, unspecified whether joint terminal attack controller insulin use; Gastroesophageal reflux disease, unspecified whether esophagitis present; Hypertension, unspecified type; Mixed anxiety and depressive disorder; Hypothyroidism, unspecified type; CIARA (obstructive sleep apnea); Class 3 severe obesity with serious comorbidity [...] Sign Reading Time Taken Comments Blood Pressure 128/66 08/11/2023 3:39 PM EDT Pulse 91 08/11/2023 3:39 PM EDT Temperature - - Respiratory Rate - - Oxygen Saturation - - Inhaled Oxygen Concentration - - Weight 117.5 kg (259 lb) 08/11/2023 3:39 PM EDT Height 162.6 cm (5' 4) 08/11/2023 3:39 PM EDT Body Mass Index 44.46 08/11/2023 3:39 PM EDT documented in this encounter Progress Notes * Yamile Jesus MD - 08/11/2023 3:30 PM EDTSummary: 5th visit with MD Images from the original note were not included. [facility] Patient Name: Jes Bello Date of : 1960 Age: 62 y.o. Jane Hector APRN Thank you for referring Jes Bello to the [facility]. I saw her for a follow-up visit today, 08/11/23. Please see changes to care as documented in the assessment and plan. CHIEF COMPLAINT: F/u for treatment of WHO Class 3 / EOSS Stage 2 Obesity, defined by BMI at presentation, with comorbidities:HTN, DM 2, anxiety/depression, thyroid disease. . This is Visit #5 [facility] visit for this 62 y.o. patient. Initial weight 12/03/22: 284 lbs 02/03/2023, no new weight 04/14/2023, 251 lbs (- 33 lbs) 06/07/2023, 254 lbs (+ 3 lbs, - 30 lbs) 08/11/2023, 259 lbs (+ 4 lbs, - 26 lbs) [facility] Team: RD in the community HPI PILLARS Stress - no new stressors. Sleep - not sleeping, can't sleep - genetics, stress, sleep hygiene. Tried benadryl, not much help.Unisom, didn't help. In bed 9-10 PM and awake until 230 for BR, might doze for a minute. Has gone 6+ days without any real asleep. Exercise - fatigued, mobility issues Nutrition - eating one big meal a day When its time to eat, I put away one big meal. Not eating late. Chowder, cheddar cheese, Onion rings dipped in mckeon (?), vero and jerrys Drinking milk and coffee, water, sometimes cola AOM: Currently taking: Mounjaro 12.5 mg AOM HX: Jardiance (DM 2) - unclear why she stopped Rybelsus (DM 2) -> changed to Mounjaro COMORBIDITIES ADDRESSED Obesogenic meds: cymbalta? LIFESTYLE INTERVENTIONS (Topics discussed [...] f/u, refer to sleep med - has upcoming appt Self-monitoring: Food log Groups of interest: []HLP-ES [] HLP-MS [] HLP-LS []Culinary []ACT []Monthly Lifestyle Classes Discussion 08/11/23:Current pathways reviewed. Will increase to Mounjaro 15 mg, adding omeprazole in the morning for reflux control. Will connect with RD - Selam Mendez. Cont f/u. No data to display VITAL SIGNS: Vitals: 08/11/23 1539 BP: 128/66 BP Location (NBP): Right arm Patient Position: Sitting BP Cuff Sizes: Large Adult (32-43 cm) Pulse: 91 Weight: 117.5 kg (259 lb) Height: 162.6 cm (5' 4) Body mass index is 44.46 kg/m??. PHYSICAL EXAM: Gen: Alert and appropriate, NAD. [...] found for: GLUCFASTING No results found for: JWOUIJOQ29 No results found for: 25OHVITD No results [...] Depression, CIARA-untreated and Thyroid dz Referrals pending: RD AOM: Leigh Diagnoses and all orders for this visit: Type 2 diabetes mellitus without complication, unspecified whether penitentiary insulin use - tirzepatide 15 mg/0.5 mL Pen Injector; Inject 15 mg subcutaneously once a week. Gastroesophageal reflux disease, unspecified whether esophagitis present - omeprazole (PriLOSEC) [address] capsule; Take 1 capsule by mouth daily. Hypertension, unspecified type Mixed anxiety and depressive disorder Hypothyroidism, unspecified type CIARA (obstructive sleep apnea) Class 3 severe obesity with serious comorbidity and body mass index (BMI) of 40.0 to 44.9 in adult,unspecified obesity type No orders of the defined types were placed in this encounter. Return in about 8 weeks (around 10/06/2023) for In person or Zoom, With me, Schedule RD. 1 min chart review 30 min nutj-ot-erha visit 5 min documentation time I spent time above reviewing labs, writing prescriptions, documenting visit, examining the patient,arranging other specialty care, counseling in diet and/or exercise and discussion of treatment options in the care of obesity. documented in this encounter Plan of Treatment Upcoming Encounters Date Type Department Care Team (Late st Contact Info) Description 07/04/2024 12:00 PM EDT Office [place] [address] Yamile Jesus MD [facility] [place] [address] 09/09/2024 3:00 PM EST TH Visit (TeleHealth) Sleep Center at [facility] [address] [place] [address] Kaia Becker APRN [facility] [place] [place] [address] documented as of this encounter Visit Diagnoses Diagnosis Type 2 diabetes mellitus without complication, unspecified whether joint terminal attack controller insulin use Gastroesophageal reflux disease, unspecified whether esophagitis present Hypertension, unspecified type Mixed anxiety and depressive disorder Dysthymic disorder Hypothyroidism, unspecified type CIARA (obstructive sleep apnea) Obstructive sleep apnea (adult) (pediatric) Class 3 severe obesity with serious comorbidity and body mass index (BMI) of 40.0 to 44.9 in adult, unspecified obesity type documented in this encounter Care Teams Director Payment Relationship Specialty Start Date End Date Jane Hector APRN [address] [place] [address] PCP - General Geriatric Medicine 07/18/23 documented as of this encounter
--- OUTSIDE RECORDS SUMMARY | 2024-05-29 02:27 | XMS_ITS | Encounter Summary ---
[place] [address] Care Team Providers Care Bridge Tender Name Role Phone Jane Hector APRN Primary Care Provider [phone] Reason for Visit * Reason Onset Date Comments Medication Problem 12/07/2023 Encounter Details Date Type Department Care Team (Late st Contact Info) Description 12/07/2023 Telephone Weight [place] [address] Yamile Jesus MD [facility] [address] [facility] [facility] [address] Medication Problem Social History Tobacco Use Types Packs/Day Years Used Date Smoking Tobacco: Never Smokeless Tobacco: Never Sex and Gender Information Value Date Recorded Sex Assigned at Female 08/24/2023 3:35 PM EDT Gender Identity Female 08/24/2023 3:29 PM EDT Sexual Orientation Straight 08/24/2023 3: 35 PM EDT documented as of this encounter Miscellaneous Notes * Telephone Encounter - Devorah Mathur - 12/07/2023 2:14 PM EST Patient called and stated that she ended up calling [facility] and found out they got the medication in today and stated that she took her dose and is all set now. * Telephone Encounter - Pam Glass - 12/07/2023 12:33 PM EST Pharmacy or caller: Jes Bello Medication: tirzepatide (Mounjaro) 7.5 mg/0.5 mL Pen Injector Message: Patient called and stated pharmacy has 12.5mg available. Patient stated they are due to take medication today and asked that a new prescription be sent in for the 12.5mg to [facility] in [place], [place] Did you contact your pharmacy?: Yes documented in this encounter Plan of Treatment Upcoming Encounters Date Type Department Care Team (Late st Contact Info) Description 07/04/2024 12:00 PM EDT Office Visit [place] [address] Yamile Jesus MD [facility] [place] [address] 09/09/2024 3:00 PM EST TH Visit (TeleHealth) Sleep Center at [place] [address] [place] [address] Kaia Becker APRN [facility] [place] [address] documented as of this encounter Goals Goal [...] and frozen broccoli) with sharp cheddar or malawian cheese (if you want) with piece of fruit (20-25 grams of protein) Option 2: plain yogurt, zimbabwean has more protein with small amount of [...] Option 2: tuna salad with 2 tbsp zimbabwean plain yogurt with 2 tbsp huff over spinach or lettuce If needed, Snack: All 10 grams of protein Option 1: hummus and raw vegetable and crackers (wheat thin) Option 2: cottage cheese (3/4 cup) with chives Option 3: grapes with nuts Other Nutrition Goals 60 grams of protein per day 20-25 grams of fiber per day Huff - 1 tbsp zimbabwean plain yogurt with 1 tbsp huff Limit [...] in the hot weather Call Sleep medicine: [phone] documented as of this encounter Visit Diagnoses Not on filedocumented in this encounter Care Teams Bridge Tender Relationship Specialty Start Date End Date Jane Hector APRN [facility] [place] [address] PCP - General Geriatric Medicine 07/18/23 documented as of this encounter
--- OUTSIDE RECORDS SUMMARY | 2024-05-29 02:27 | XMS_ITS | Encounter Summary ---
Author Organization [facility] [place] [address] Care Team Providers Care Bridge Contractor Name Role Phone Jane Hector APRN Primary Care Provider [phone] Encounter Details Date Type Department Care Team (Latest Contact Info) Description 08/10/2023 Travel Social History Tobacco Use Types Packs/Day [...] EDT Office Visit [place] [address] Yamile Jesus MD [facility] [address] [place] [address] 09/09/2024 3:00 PM EST TH Visit (TeleHealth) Sleep Center at [facility] [address] [place] [address] Kaia Becker APRN [facility] [place] [address] documented as of this encounter Visit Diagnoses Not on filedocumented in this encounter Care Teams Bridge Contractor Relationship Specialty Start Date End Date Jane Hector APRN [address] [place] [address] PCP - General Geriatric Medicine 07/18/23 documented as of this encounter
--- OUTSIDE RECORDS SUMMARY | 2024-05-29 02:27 | XMS_ITS | Encounter Summary ---
[place] [address] Care Team Providers Care Bank Cashier Name Role Phone Jane Hector APRN Primary Care Provider [phone] Reason for Visit * Reason Onset Date Comments Prior Authorization 10/20/2023 Mounjaro 12. 5 mg/0.5 mL Pen Injector Encounter Details Date Type Department Care Team (Late st Contact Info) Description 10/20/2023 Telephone [place] [address] Margarita Allen CMA Prior Authorization (Mounjaro 12.5 mg/0.5 mL Pen Injector ) Social History Tobacco Use Types Packs/Day Years Used Date Smoking Tobacco: Never Smokeless Tobacco: Never Sex and Gender Information Value Date Recorded Sex Assigned at Female 08/24/2023 3:35 PM EDT Gender Identity Female 08/24/2023 3:29 PM EDT Sexual Orientation Straight 08/24/2023 3: 35 PM EDT documented as of this encounter Miscellaneous Notes * Telephone Encounter - Margarita Allen CMA - 10/31/2023 8:50 AM ESTSummary: Approval Submitted Date: Submitted Date: 10/20/2023 Next Review Date: Next Review Date: 10/22/2024 PA Outcome: PA Approval Medication Prior Authorization Approval Approved: Mounjaro 12.5MG/0.5ML pen-injectors Start Date: 10/24/2023 End Date: 10/22/2024 Case/Reference #: [id number] Approval Letter will be scanned into media once received. * Telephone Encounter - Margarita Allen CMA - 10/20/2023 8:43 AM ESTSummary: Submitted PA Submitted Submitted Date: Date Submitted: 10/24/2023 Medication Prior Authorization Patient: Jes Bello Patient : 1960 Insurance Company: [facility] MANAGED MEDICARE Sent via: [employer] Son: [id number] Physician: Yamile Jesus MD Medication Requested: Mounjaro 12.5 mg/0.5 mL Pen Injector Frequency/Sig: Inject 15 mg subcutaneously once a week. Disp: 2 mL Refills: 3 Currently taking: yes If yes, how lon01/2023 Diagnosis for this medication: Type 2 diabetes mellitus without complication, unspecified whether mcfp insulin use [E11.9] Prior medications trialed in this patient: Medication: semaglutide (Rybelsus) 3mg, 7mg, 14mg Approx Dates: 11/2022- Outcome/Adverse Reactions: Inadequate response Medication: metFORMIN (GLUCOPHAGE) 500 mg Tablet Approx Dates: Outcome/Adverse Reactions: Inadequate response Medication: Jardiance 10 mg Tablet Approx Dates: 10/2022-01/2023 Outcome/Adverse Reactions: Inadequate response Additional Notes: documented in this encounter Plan of Treatment Upcoming Encounters Date Type Department Care Team (Late st Contact Info) Description 07/04/2024 12:00 PM EDT Office Visit [place] [address] Yamile Jesus MD [facility] [address] [place] [address] 09/09/2024 3:00 PM EST TH Visit (TeleHealth) Sleep Center at [facility] [address] [place] [address] Kaia Becker APRN [place] [address] documented as of this encounter Goals Goal [...] and frozen broccoli) with sharp cheddar or maltese cheese (if you want) with piece of fruit (20-25 grams of protein) Option 2: plain yogurt, nepalese has more protein with small amount of [...] Option 2: tuna salad with 2 tbsp nepalese plain yogurt with 2 tbsp huff over spinach or lettuce If needed, Snack: All 10 grams of protein Option 1: hummus and raw vegetable and crackers (wheat thin) Option 2: cottage cheese (3/4 cup) with chives Option 3: grapes with nuts Other Nutrition Goals 60 grams of protein per day 20-25 grams of fiber per day Huff - 1 tbsp nepalese plain yogurt with 1 tbsp huff Limit [...] pickled beets 9. Limit the frappachinos from [facility] [[email or web address]], try a cold brew coffee in the hot weather Call Sleep medicine: [phone] documented as of this encounter Visit Diagnoses Not on filedocumented in this encounter Care Teams Bank Cashier Relationship Specialty Start Date End Date Jane Hector APRN [address] [place] [place] [address] PCP - General Geriatric Medicine 07/18/23 documented as of this encounter
--- OUTSIDE RECORDS SUMMARY | 2024-05-29 02:27 | XMS_ITS | Encounter Summary ---
Author Organization [facility] [place] [address] Care Team Providers Care Door Repairman Name Role Phone Jane Hector APRN Primary Care Provider [phone] Encounter Details Date Type Department Care Team (Late st Contact Info) Description 10/02/2023 Telephone [place] [address] [facility] [address] Social History Tobacco Use Types Packs/Day Years Used Date Smoking Tobacco: Never Smokeless Tobacco: Never Sex and Gender Information Value Date Recorded Sex Assigned at Female 08/24/2023 3:35 PM EDT Gender Identity Female 08/24/2023 3:29 PM EDT Sexual Orientation Straight 08/24/2023 3: 35 PM EDT documented as of this encounter Miscellaneous Notes * Telephone Encounter - Gina Mendez RD - 10/02/2023 9:56 AM ESTSummary: Low Blood sugars Patient called to reported that she had low blood sugar (1x per week) typically in the late morningor mid afternoon, always between 1-2 hours after a meal. Her low blood sugar manifests in tingling in arms and legs (she does not measure her blood sugars). Jes has a continuous glucose monitor butshahzade typically doesn't wear them because they fall off. She is going to speak with Dr. Jesus on 10/06. Jes reported having this response for the past 6 months, since taking Mounjaro. Jes drinks glucerna in response to the low blood sugar. Feels better in [address] discussed that glucerna, milk, oranges, bananas may help with raising blood sugar in response. RD asked patient to track the foods she eats and when she gets the response. documented in this encounter Plan of Treatment Upcoming Encounters Date Type Department Care Team (Late st Contact Info) Description 07/04/2024 12:00 PM EDT Office Visit [place] [address] Yamile Jesus MD [facility] [place] [address] 09/09/2024 3:00 PM EST TH Visit (TeleHealth) Sleep Center at [facility] [address] [place] [address] Kaia Becker APRN [facility] [place] [address] documented as of this encounter Goals Goal [...] and frozen broccoli) with sharp cheddar or haitian cheese (if you want) with piece of fruit (20-25 grams of protein) Option 2: plain yogurt, italian has more protein with small amount of [...] Option 2: tuna salad with 2 tbsp italian plain yogurt with 2 tbsp huff over spinach or lettuce If needed, Snack: All 10 grams of protein Option 1: hummus and raw vegetable and crackers (wheat thin) Option 2: cottage cheese (3/4 cup) with chives Option 3: grapes with nuts Other Nutrition Goals 60 grams of protein per day 20-25 grams of fiber per day Huff - 1 tbsp italian plain yogurt with 1 tbsp huff Limit [...] in the hot weather Call Sleep medicine: [phone] documented as of this encounter Visit Diagnoses Not on filedocumented in this encounter Care Teams Door Repairman Relationship Specialty Start Date End Date Jane Hector APRN [facility] [place] [place] [address] PCP - General Geriatric Medicine 07/18/23 documented as of this encounter
--- OUTSIDE RECORDS SUMMARY | 2024-05-29 02:27 | XMS_ITS | Encounter Summary ---
[place] [address] Care Team Providers Care Pastry Cook Apprentice Name Role Phone Jane Hector APRN Primary Care Provider [phone] Reason for Visit * Reason Comments Prior Authorization Ozempic 1mg Encounter Details Date Type Department Care Team (Late st Contact Info) Description 01/09/2024 Specialty [place] [address] Betsy Jovel, TERRI Social History Tobacco Use Types Packs/Day Years Used Date Smoking Tobacco: Never Smokeless Tobacco: Never Sex and Gender Information Value Date Recorded Sex Assigned at Female 08/24/2023 3:35 PM EDT Gender Identity Female 08/24/2023 3:29 PM EDT Sexual Orientation Straight 08/24/2023 3: 35 PM EDT documented as of this encounter Progress Notes * Betsy Jovel CPHT - 01/09/2024 1:19 PM EDT [facility], Benefits Investigation Patient: Jes Bello Patient : 1960 Patient Address: [place] [address] (home) Medication Name: OZEMPIC 1 MG/DOSE (4 MG/3 ML) SUBCUTANEOUS PEN INJECTOR Medication ID: Patient Location: [facility] Patient Location Comment: Medication Strength Frequency Requested: To be prescribed Qty/Day Supply: 01/19 New Start: New to Therapy Diagnosis & ICD-10 Code: Diabetes Subscriber Insurance: [employer] Subscriber Insurance Comment: Phone: Fax: Physician: YAMILE UGALDE Physician Comment : PA Status: PA Not Needed Insurance mandated Pharmacy: Fillable at [facility]: Yes Insurance requirements/notes: None Copay: $0 Copay assistance: Copay assistance comment: Pharmacy staff will be reaching out to the patient to inform them of their medication's [facility]. If applicable, a pharmacist will speak with the patient to offer our specialty pharmacy services and to arrange delivery of their medication. Betsy Jovel CPHT 01/09/24 1:21 PM documented in this encounter Plan of Treatment Upcoming Encounters Date Type Department Care Team (Late st Contact Info) Description 07/04/2024 12:00 PM EDT Office [place] [address] Yamile Ugalde MD [facility] [address] [place] [address] 09/09/2024 3:00 PM EST TH Visit (TeleHealth) Sleep Center at [place] [address] [place] [address] Kaia Becker APRN [facility] [place] [place] [address] documented as of this encounter Goals Goal [...] and frozen broccoli) with sharp cheddar or swedish cheese (if you want) with piece of fruit (20-25 grams of protein) Option 2: plain yogurt, sri lankan has more protein with small amount of [...] Option 2: tuna salad with 2 tbsp sri lankan plain yogurt with 2 tbsp huff over spinach or lettuce If needed, Snack: All 10 grams of protein Option 1: hummus and raw vegetable and crackers (wheat thin) Option 2: cottage cheese (3/4 cup) with chives Option 3: grapes with nuts Other Nutrition Goals 60 grams of protein per day 20-25 grams of fiber per day Huff - 1 tbsp sri lankan plain yogurt with 1 tbsp huff Limit [...] pickled beets 9. Limit the frappachinos from [facility], try a cold brew coffee in the hot weather Call Sleep medicine: [phone] documented as of this encounter Visit Diagnoses Not on filedocumented in this encounter Care Teams Pastry Cook Apprentice Relationship Specialty Start Date End Date Jane Hector APRN [address] [place] [address] PCP - General Geriatric Medicine 07/18/23 documented as of this encounter
--- OUTSIDE RECORDS SUMMARY | 2024-05-29 02:27 | XMS_ITS | Encounter Summary ---
[place] [address] Care Team Providers Care Manual Control Auger Press Operator Name Role Phone Jane Hector APRN Primary Care Provider [phone] Reason for Visit * Reason Onset Date Comments Medication Refill 12/28/2023 Encounter Details Date Type Department Care Team (Late st Contact Info) Description 12/28/2023 Refill [place] [address] Yamile Jesus MD [facility] [place] [address] Type 2 diabetes mellitus without complication, unspecified whether alf insulin use Social History Tobacco Use Types [...] EDT Office Visit [place] [address] Yamile Jesus MD [facility] [address] [place] [address] 09/09/2024 3:00 PM EST TH Visit (TeleHealth) Sleep Center at [facility] [address] [place] [address] Kaia Becker APRN [facility] [place] [address] documented as of this encounter Goals Goal [...] and frozen broccoli) with sharp cheddar or guatemalan cheese (if you want) with piece of fruit (20-25 grams of protein) Option 2: plain yogurt, montenegrin has more protein with small amount of [...] Option 2: tuna salad with 2 tbsp montenegrin plain yogurt with 2 tbsp huff over spinach or lettuce If needed, Snack: All 10 grams of protein Option 1: hummus and raw vegetable and crackers (wheat thin) Option 2: cottage cheese (3/4 cup) with chives Option 3: grapes with nuts Other Nutrition Goals 60 grams of protein per day 20-25 grams of fiber per day Huff - 1 tbsp montenegrin plain yogurt with 1 tbsp huff Limit [...] pickled beets 9. Limit the frappachinos from [facility], try a cold brew coffee in the hot weather Call Sleep medicine: [phone] documented as of this encounter Visit Diagnoses Diagnosis Type 2 diabetes mellitus without complication, unspecified whether watermelon inspector insulin use documented in this encounter Care Teams Manual Control Auger Press Operator Relationship Specialty Start Date End Date Jane Hector APRN [address] [place] [address] PCP - General Geriatric Medicine 07/18/23 documented as of this encounter
--- OUTSIDE RECORDS SUMMARY | 2024-05-29 02:27 | XMS_ITS | Encounter Summary ---
[place] [address] Care Team Providers Care Gasoline Tester Name Role Phone Jane Hector ZACK Primary Care Provider [phone] Encounter Details Date Type Department Care Team (Late st Contact Info) Description 07/12/2023 5:30 PM EDT Notes [place] [phone] Social History Tobacco Use Types Packs/Day Years [...] EDT Office Visit [place] [phone] Yamile Jesus MD [facility] [place] [address] 09/09/2024 3:00 PM EST TH Visit (TeleHealth) Sleep Center at [facility] [address] [place] [phone] Kaia Becker APRN [facility] [place] [place] [address] documented as of this encounter Visit Diagnoses Not on filedocumented in this encounter Care Teams Gasoline Tester Relationship Specialty Start Date End Date Jane Hector APRN [address] [place] [address] PCP - General Geriatric Medicine 07/18/23 documented as of this encounter
--- OUTSIDE RECORDS SUMMARY | 2024-05-29 02:27 | XMS_ITS | Encounter Summary ---
[place] [address] Care Team Providers Care Ball Rolling Machine Operator Name Role Phone Yissel Guerra APRN Primary Care Provider [phone] Encounter Details Date Type Department Care Team (Latest Contact Info) Description 05/31/2023 Travel Social History Tobacco Use Types Packs/Day [...] EDT Office Visit [place] [address] Yamile Jesus MD [facility] [place] [address] 09/09/2024 3:00 PM EST TH Visit (TeleHealth) Sleep Center at [facility] [address] [place] [address] Kaia Becker APRN [facility] [place] [address] documented as of this encounter Visit Diagnoses Not on filedocumented in this encounter Care Teams Ball Rolling Machine Operator Relationship Specialty Start Date End Date Yissel Guerra APRN PCP - General Family Medicine 07/04/22 07/17/23 documented as of this encounter
--- OUTSIDE RECORDS SUMMARY | 2024-05-29 02:27 | XMS_ITS | Encounter Summary ---
Author Organization [facility] [place] [address] Care Team Providers Care Electrophysiology Tech Name Role Phone Jane Hector APRN Primary Care Provider [phone] Encounter Details Date Type Department Care Team (Late st Contact Info) Description 01/05/2024 Telephone [place] [phone] Yamile Jesus MD [facility] [address] [facility] MEDICINE [place], [place] [id number] Social History Tobacco Use Types Packs/Day Years Used Date Smoking Tobacco: Never Smokeless Tobacco: Never Sex and Gender Information Value Date Recorded Sex Assigned at Female 08/24/2023 3:35 PM EDT Gender Identity Female 08/24/2023 3:29 PM EDT Sexual Orientation Straight 08/24/2023 3: 35 PM EDT documented as of this encounter Miscellaneous Notes * Telephone Encounter - Gina Gillespie RN - 01/09/2024 12:30 PM EDT Spoke with pt. Jes states that no one has Mounjaro and she will switch to the equivalent dose of Ozempic. She has missed one week of Mounjaro at this time. Her next injection is . * Telephone Encounter - Gina Gillespie RN - 01/09/2024 9:56 AM EDT Called and let detailed message. Want to confirm what medication and what pharmacy before sending request to Dr. Jesus . * Telephone Encounter - Andreina Alvarado - 01/08/2024 3:15 PM EDT Jes called again to say that her script has not been called into the pharmacy and she can not wait 3 days or she will get sick. So pt would like this order expedited * Telephone Encounter - Karina Aguero - 01/08/2024 11:42 AM EDT Patient states both: [facility] [address] [place] [address] ?? [facility] [address] [place] [address] ?? Have two sizes of the Ozempic. Patient would like to start with Te. * Telephone Encounter - Gina Gillespie RN - 01/05/2024 1:24 PM EDT Spoke with pt. Pt was due for her injection of Mounjaro 15 mg yesterday. Let her know that Dr. Jesus is going to switch her to Ozempic. Pt states that she is concerned since there are lots of bad things that she hears about it. I did tell her the only other alternative was for her to order thehighest dose she could find. If she is off her medication for 2 weeks she would need to start back in the beginning again. Pt will call around and see what she can find locally and let us know. * Telephone Encounter - Devorah Mathur - 01/05/2024 11:40 AM EDT Pharmacy or caller: Jes Bello Medication: Mounjaro 15mg/0.5mL Message: Patient called and stated that she is unable to get the Mounjaro 15mg as no pharmacy around has it and she has not been able to take it for this reason. Patient is looking to discuss next steps. Patient is also upset that option 4 to leave a message for the Nurse is not working. Please call to advise. Did you contact your pharmacy?: Yes documented in this encounter Plan of Treatment Upcoming Encounters Date Type Department Care Team (Late st Contact Info) Description 07/04/2024 12:00 PM EDT Office Visit [place] [address] Yamile Jesus MD [facility] [place] [address] 09/09/2024 3:00 PM EST TH Visit (TeleHealth) Sleep Center at [place] [address] [place] [address] Kaia Becker APRN [facility] [place] [address] documented as of this encounter Goals Goal [...] and frozen broccoli) with sharp cheddar or cameroonian cheese (if you want) with piece of fruit (20-25 grams of protein) Option 2: plain yogurt, solomon islander has more protein with small amount [...] Option 2: tuna salad with 2 tbsp solomon islander plain yogurt with 2 tbsp huff over spinach or lettuce If needed, Snack: All 10 grams of protein Option 1: hummus and raw vegetable and crackers (wheat thin) Option 2: cottage cheese (3/4 cup) with chives Option 3: grapes with nuts Other Nutrition Goals 60 grams of protein per day 20-25 grams of fiber per day Huff - 1 tbsp solomon islander plain yogurt with 1 tbsp huff [...] in the hot weather Call Sleep medicine: [phone] documented as of this encounter Visit Diagnoses Not on filedocumented in this encounter Care Teams Electrophysiology Tech Relationship Specialty Start Date End Date Jane Hector APRN [facility] [place] [facility] [place] [address] PCP - General Geriatric Medicine 07/18/23 documented as of this encounter
--- OUTSIDE RECORDS SUMMARY | 2024-05-29 02:27 | XMS_ITS | Encounter Summary ---
Author Organization [facility] Address [facility] [place] [address] Care Team Providers Care Drafter Geophysical Name Role Phone StevenJane Chandler ZACK Primary Care Provider [phone] Reason for Visit * Consultation (Routine) - Closed Specialty Diagnoses / Procedures Referred By Darvin t Referred To Contact Sleep Center Diagnoses CIARA (obstructive sleep apnea) Insomnia, unspecified type Yamile Jesus MD [facility] [address] [place] [address] [facility] [address] [place] [address] Referral ID Status Reason Start Date Expiration Date V isits Requested Visits Authorized [id number] Closed Consult, Test & Treat 10/06/2023 10/05/2024 1 1 Encounter Details Date Type Department Care Team (Late st Contact Info) Description 12/12/2023 4:30 PM EST TH Visit (TeleHealth) Sleep Center at [facility] [address] [place] [address] Katalina Chahal APRN [facility] [place] [address] Primary insomnia (Primary Dx); History of obstructive sleep apnea Social History Tobacco Use Types Packs/Day Years Used Date Smoking Tobacco: Never Smokeless Tobacco: Never Sex and Gender Information Value Date Recorded Sex Assigned at Female 08/24/2023 3:35 PM EDT Gender Identity Female 08/24/2023 3:29 PM EDT Sexual Orientation Straight 08/24/2023 3: 35 PM EDT documented as of this encounter Progress Notes * Katalina Chahal, HOTEL ADMINISTRATIVE ASSISTANT - 12/12/2023 4:30 PM EST Sleep Medicine Telehealth Consult Note Patient in [place] Visit via video CC/HPI: Jes Bello is a 63 y.o. female seen at the request of Yamile Jesus MD, for advice regarding potential CIARA and insomnia. Previous sleep study done about 25 years ago. She lost weight since then. She doesn't want to address CIARA and doesn't think she has it. She will not use a CPAP either. She wants to address insomnia. She hasn't been able to sleep for weeks. She has had insomnia most of her life. Her whole family has insomnia. It happens nightly with getting to sleep and staying asleep. Not related to work, stress, family. Insomnia affecting mood, energy, concentration. She has done CBTi, been there, done that. Already does CBT for insomnia with therapist. Does sleep diary, taken every over the counter medication, they work for a minute then they stop working: CBD, THC, Zquil, antihistamines, etc. She wants a prescription sleeping pill. She has tried Ambien, Lunesta, trazodone, lorazepam, rozarem/Ramelteon. Trazodone may or may not work. Lunesta seemed to work better than Ambien. Medications eventually stop working. She always needs higher dosage, than less of a dose, from her experience. She is in between PCPs and will see new one next week. Takes Wellbutrin XL, takes at 4:30p, wonders if that is influencing sleep. Was prescribed in past by a previous provider. HPI continues below. Sleep Pattern: Bed/Recliner/Wedge: bed, flat, sleeps alone # Pillows under head: myPillows, 2 Bedtime: uses an da that tells her to get ready for bed, 10-10:30p Position: primarily back, L side Latency (LOIS): doesn't usually fall asleep, stays awake most of the night Awakenings (WASO): fragmented and light Duration: hours Wake/rise time: no set time Respiratory: Snoring: was told once, snores softly Observed Apneas: unknown Mouth Breathing: maybe Dry Mouth: yes Nocturnal Gasping: no Daytime Symptoms: Patient-reported last 4 scores: 12/12/2023 2:30 PM [facility] [place] [facility] 5 (Low Risk) Insomnia Severity Index 19 (Moderately severe insomnia) Restorative Sleep Upon Awakening?: no Naps: no, cannot sleep Involuntary Dozing: no, cannot sleep Driving: refuses to drive when sleeping Parasomnias: Sleep Walking: no Nightmares: no, doesn't dream Bruxism: no Narcolepsy: RBD (Dream enactment): unaware Motor: RLS: no PLMS: unaware Family History: Family history of sleep disorders: ROS: not interested in wasting time with questions below CON: Weight change: lost weight ENT: Nasal Obstruction: unknown PUL: CARTER: no CV: chest pain: no Palpitations: no LE edema: no GI: GERD: yes, medication helps : Nocturia: no MSK: Pain: no NEURO: sleep related headaches: no PSY: Depressed Mood/Anxiety: unknown ALL: Environmental allergies: unknown Social History: Living situation: lives alone Employment: works from home, not a lot Alcohol: doesn't drink Smoking: none Caffeine: coffee in AM Other drugs: Doing THC but doesn't work Past Surgical History: Procedure Laterality Date CHOLECYSTECTOMY EYE SURGERY Right times two TONSILLECTOMY AND ADENOIDECTOMY 1967 Past Medical History: Diagnosis Date Depression Hypertension Patient Active Problem List Diagnosis Code Spinal stenosis at L4-L5 level M48.061 Class 3 severe obesity with serious comorbidity and body mass index (BMI) of 40.0 to 44.9 in adult E66.01, Z68.41 Hypertension I10 Type 2 diabetes mellitus without complication E11.9 Hypothyroidism E03.9 CIARA (obstructive sleep apnea) G47.33 Outpatient Medications Marked as Taking for the 12/12/23 encounter (TH Visit (TeleHealth)) with Katalina Chahal APRN Medication Sig Dispense Refill tirzepatide 15 mg/0.5 mL Pen Injector Inject 15 mg subcutaneously once a week. 2 mL 3 omeprazole (PriLOSEC) [address] capsule Take 1 capsule by mouth daily. 30 capsule 11 buPROPion XL (Wellbutrin XL) 150 mg Tablet Extended Release 24 hr buPROPion XL (Wellbutrin XL) 300 mg Tablet Extended Release 24 hr vilazodone (Viibryd) 20 mg Tablet lisinopril (PRINIVIL;ZESTRIL) 20 mg Tablet Take 20 mg by mouth daily. montelukast (SINGULAIR) 10 mg Tablet Take 10 mg by mouth nightly. Notable Medications: High dose of Wellbutrin XL PE: Not interested in PE 260lbs taken from 11/11/23 visit Alert and appropriate: yes but short Oriented to person, place and time: AOx3 Affect: short Judgement and insight: appears intact Procedures reviewed: No EKG, echo, PFT records located 03/13/23 serum CO2 28.2mmol.L (external notes) Ferritin 127ng/mL Assessment: Jes Bello is a 63 y.o. female with a history of CIARA, last sleep study was 25+ years ago, doesn't want to address, doesn't think she has it. Not interested in answering CIARA or other related questions. Primary concern is sleep onset and maintenance insomnia. Had insomnia all her life, hasn't sleep much in weeks per report. Not driving. Tried multiple over the counter and prescription medications, most have not worked. Does CBTi with therapist, doesn't work. Repeat trial of Lunesta starting at 1mgby mouth nightly at bedtime. She is to report back to me via [facility] if it helps or not after a week. If not, may suggest trial of 2mg (two 1mg tabs). If works, suggest obtaining through PCP after current prescription ends. If not working, suggest increase to max dose as trial as long as no significant side effects like complex sleep related behaviors. Not recommended for long-term use. She is in-between PCPs, she is seeing PCP next week. Suggest addressing possible reduction in dose of Wellbutrin XL (450mg XL total; no prescribing provider at this time), as it could aggravate insomnia. Reports being on it for her sugars, not mood. Not interested in physical exam. No eval. Reasons to treat obstructive sleep apnea if present partially reviewed and that it can affect insomnia. Total time spent via telehealth with patient on date of service including chart review, procedure search, documentation, counseling and recommendations: 40 minutes Recommendations: Sleep onset and maintenance insomnia: --Continue CBT for insomnia --Consider reduction of Wellbutrin as it can affect insomnia; follow up with PCP at next visit for discussion --Trial of Lunesta 1mg by mouth at bedtime nightly Send me a [employer] message in 1 week if working or not --Re-evaluate for presence of obstructive sleep apnea as it can affect cardiovascular risk, other medical conditions, and insomnia --Follow-up, as needed The patient indicates understanding of these issues and agrees with the plan. Katalina Chahal APRN Cc: Jane Hector APRN, Yamile Jesus MD documented in this encounter Plan of Treatment Upcoming Encounters Date Type Department Care Team (Late st Contact Info) Description 07/04/2024 12:00 PM EDT Office Visit [place] [address] Yamile Jesus MD [facility] [place] [address] 09/09/2024 3:00 PM EST TH Visit (TeleHealth) Sleep Center at [place] [address] [place] [address] Kaia Becker APRN [facility] [place] [address] documented as of this encounter Goals Goal [...] grams of protein) Option 2: plain yogurt, slovenian has more protein with small amount of [...] Option 2: tuna salad with 2 tbsp slovenian plain yogurt with 2 tbsp huff over spinach or lettuce If needed, Snack: All 10 grams of protein Option 1: hummus and raw vegetable and crackers (wheat thin) Option 2: cottage cheese (3/4 cup) with chives Option 3: grapes with nuts Other Nutrition Goals 60 grams of protein per day 20-25 grams of fiber per day Huff - 1 tbsp slovenian plain yogurt with 1 tbsp huff Limit [...] pickled beets 9. Limit the frappachinos from [employer], try a cold brew coffee in the hot weather Call Sleep medicine: [phone] documented as of this encounter Visit Diagnoses Diagnosis Primary insomnia- Primary Persistent disorder of initiating or maintaining sleep History of obstructive sleep apnea documented in this encounter Care Teams Drafter Geophysical Relationship Specialty Start Date End Date Jane Hector APRN [address] [place] [address] PCP - General Geriatric Medicine 07/18/23 documented as of this encounter
--- OUTSIDE RECORDS SUMMARY | 2024-05-29 02:27 | XMS_ITS | Encounter Summary ---
Author Organization [facility] [place] [address] Care Team Providers Care Technical Specialist Cytology Name Role Phone Jane Hector APRN Primary Care Provider [phone] Encounter Details Date Type Department Care Team (Late st Contact Info) Description 09/05/2023 Telephone [place] [phone] Gina Gillespie RN Social History Tobacco Use Types Packs/Day Years Used Date Smoking Tobacco: Never Smokeless Tobacco: Never Sex and Gender Information Value Date Recorded Sex Assigned at Female 08/24/2023 3:35 PM EDT Gender Identity Female 08/24/2023 3:29 PM EDT Sexual Orientation Straight 08/24/2023 3: 35 PM EDT documented as of this encounter Miscellaneous Notes * Telephone Encounter - Gina Gillespie RN - 09/05/2023 12:51 PM EST Pt called to tell us that she go her Mounjaro 15 mg in the mail today and will be taking it on . documented in this encounter Plan of Treatment Upcoming Encounters Date Type Department Care Team (Late st Contact Info) Description 07/04/2024 12:00 PM EDT Office [place] [phone] Yamile Jesus MD [facility] [address] [place] [address] 09/09/2024 3:00 PM EST TH Visit (TeleHealth) Sleep Center at [address] [place] [address] Kaia Becker APRN [facility] [place] [address] documented as of this encounter Goals Goal [...] and frozen broccoli) with sharp cheddar or omani cheese (if you want) with piece of fruit (20-25 grams of protein) Option 2: plain yogurt, tongan has more protein with small amount of [...] Option 2: tuna salad with 2 tbsp tongan plain yogurt with 2 tbsp huff over spinach or lettuce If needed, Snack: All 10 grams of protein Option 1: hummus and raw vegetable and crackers (wheat thin) Option 2: cottage cheese (3/4 cup) with chives Option 3: grapes with nuts Other Nutrition Goals 60 grams of protein per day 20-25 grams of fiber per day Huff - 1 tbsp tongan plain yogurt with 1 tbsp huff Limit [...] pickled beets 9. Limit the frappachinos from [employer], try a cold brew coffee in the hot weather Call Sleep medicine: [phone] documented as of this encounter Visit Diagnoses Not on filedocumented in this encounter Care Teams Technical Specialist Cytology Relationship Specialty Start Date End Date Jane Hector APRN [address] [place] [address] PCP - General Geriatric Medicine 07/18/23 documented as of this encounter
--- OUTSIDE RECORDS SUMMARY | 2024-05-29 02:27 | XMS_ITS | Encounter Summary ---
Author Organization [facility] [place] [address] Care Team Providers Care Hammer Setter Name Role Phone Jane Hector APRN Primary Care Provider [phone] Encounter Details Date Type Department Care Team (Late st Contact Info) Description 09/21/2023 Telephone [place] [phone] Yamile Jesus MD [facility] [address] [place] [address] Social History Tobacco Use Types Packs/Day Years Used Date Smoking Tobacco: Never Smokeless Tobacco: Never Sex and Gender Information Value Date Recorded Sex Assigned at Female 08/24/2023 3:35 PM EDT Gender Identity Female 08/24/2023 3:29 PM EDT Sexual Orientation Straight 08/24/2023 3: 35 PM EDT documented as of this encounter Miscellaneous Notes * Telephone Encounter - Gina Gillespie RN - 09/25/2023 8:01 AM EST MD contacted patient * Telephone Encounter - Stefania Broussard - 09/21/2023 4:11 PM EST Patient calling again today regarding sleep medication. Patient states she believes she is not receiving a return call from provider, because she was told by office that providers do not return calls, because they cannot bill out TOV. Please return call to discuss. * Telephone Encounter - Gina Gillespie RN - 09/21/2023 10:08 AM EST Spoke with pt. Let her know that determining wether or not she gets sleep medication is not something I can determine. I spoke directly with Dr. Jesus who stated that she would not be prescribing sleep medication for her. She would need to discuss it with her PCP. Pt asked that Dr. Jesus s peak with Elisa Choi, her psychotropic doctor and discuss changing her sleep medication. I letpt know that I would send a message to her about it. I can not say if she will be doing it or not. Elisa Choi WIND SITE MANAGER, Phone#. [phone] Pt also asked about her blood sugar issues she is having and would like a response about that from Dr. Jesus as well. * Telephone Encounter - Gina Gillespie RN - 09/21/2023 10:07 AM EST Pt left a long message questioning Dr. Jesus not sending in a prescription for sleeping medication. Pt also questioned wether or not I even spoke to Dr. Jesus or if it was me determining ifa prescription would be sent. * Telephone Encounter - Reyna Orozco - 09/21/2023 9:18 AM EST Message: Jes returning call from Gina LYNN. Jes states she has also sent a voice message but would like to speak for a minute as well. Ask caller their first and last name and relationship to the patient: Jes Finn Best time to call back: anytime Ok to leave a message: yes please leave a message if unable to call back with a good time to returnthe call or please try calling right after as patients cell phone has an issue receiving calls Ok to send my- message: no Offered Appointment: no MA/Nurse/Commercial Painter contacted via: Message: yes Call: no Pager: [phone] documented in this encounter Plan of Treatment Upcoming Encounters Date Type Department Care Team (Late st Contact Info) Description 07/04/2024 12:00 PM EDT Office Visit [place] [address] Yamile Jesus MD [facility] [place] [address] 09/09/2024 3:00 PM EST TH Visit (TeleHealth) Sleep Center at [facility] [address] [place] [address] Kaia Becker APRN [facility] [place] [address] documented as of this encounter Goals Goal [...] and frozen broccoli) with sharp cheddar or kosovan cheese (if you want) with piece of fruit (20-25 grams of protein) Option 2: plain yogurt, ivorian has more protein with small amount of [...] Option 2: tuna salad with 2 tbsp ivorian plain yogurt with 2 tbsp huff over spinach or lettuce If needed, Snack: All 10 grams of protein Option 1: hummus and raw vegetable and crackers (wheat thin) Option 2: cottage cheese (3/4 cup) with chives Option 3: grapes with nuts Other Nutrition Goals 60 grams of protein per day 20-25 grams of fiber per day Huff - 1 tbsp ivorian plain yogurt with 1 tbsp huff Limit [...] in the hot weather Call Sleep medicine: [phone] documented as of this encounter Visit Diagnoses Not on filedocumented in this encounter Care Teams Hammer Setter Relationship Specialty Start Date End Date Jane Hector APRN [facility] [place] [place] [address] PCP - General Geriatric Medicine 07/18/23 documented as of this encounter
--- OUTSIDE RECORDS SUMMARY | 2024-05-29 02:27 | XMS_ITS | Encounter Summary ---
[place] [address] Care Team Providers Care Marketing Proposal Specialist Name Role Phone Jane Hector ZACK Primary Care Provider [phone] Encounter Details Date Type Department Care Team (Late st Contact Info) Description 07/19/2023 5:30 PM EDT Notes [place] [address] Social History Tobacco Use Types Packs/Day Years [...] EDT Office Visit [place] [address] Yamile Jesus MD [facility] [place] [address] 09/09/2024 3:00 PM EST TH Visit (TeleHealth) Sleep Center at [facility] [address] [place] [address] Kaia Becker APRN [facility] [place] [address] documented as of this encounter Visit Diagnoses Not on filedocumented in this encounter Care Teams Marketing Proposal Specialist Relationship Specialty Start Date End Date Jane Hector APRN [address] [place] [address] PCP - General Geriatric Medicine 07/18/23 documented as of this encounter
--- OUTSIDE RECORDS SUMMARY | 2024-05-29 02:27 | XMS_ITS | Encounter Summary ---
[place] [address] Care Team Providers Care Retanned Leather Roller Name Role Phone Jane Hector APRN Primary Care Provider [phone] Reason for Visit * Reason Onset Date Comments Appointment 11/06/2023 Encounter Details Date Type Department Care Team (Late st Contact Info) Description 11/06/2023 Telephone [place] [address] Gina Mendez, DANIAL [facility] [place] [address] Appointment Social History Tobacco Use Types Packs/Day Years Used Date Smoking Tobacco: Never Smokeless Tobacco: Never Sex and Gender Information Value Date Recorded Sex Assigned at Female 08/24/2023 3:35 PM EDT Gender Identity Female 08/24/2023 3:29 PM EDT Sexual Orientation Straight 08/24/2023 3: 35 PM EDT documented as of this encounter Miscellaneous Notes * Telephone Encounter - Kylee Meyer - 11/06/2023 1:39 PM EST Message: Ask caller their first and last name and relationship to the patient: Jes Bello Best time to call back: anytime Ok to leave a message: yes Ok to send [facility] message: no Offered Appointment: yes, no openings found Message: Patient alling to scheduled her 1 month fuv. No openings found via telehealth. Patient prefers to have telephone office visit. Call made to laboratory secretary or nurse Y/N n Pager: Y/N n documented in this encounter Plan of Treatment Upcoming Encounters Date Type Department Care Team (Late st Contact Info) Description 07/04/2024 12:00 PM EDT Office Visit Weight and Wellness at [facility] [place] [address] Yamile Jesus MD [facility] [address] [place] [address] 09/09/2024 3:00 PM EST TH Visit (TeleHealth) Sleep Center at [facility] [address] [place] [address] Kaia Becker APRN [facility] [place] [address] documented as of this encounter Goals Goal [...] and frozen broccoli) with sharp cheddar or niuean cheese (if you want) with piece of fruit (20-25 grams of protein) Option 2: plain yogurt, colombian has more protein with small amount of [...] Option 2: tuna salad with 2 tbsp colombian plain yogurt with 2 tbsp huff over spinach or lettuce If needed, Snack: All 10 grams of protein Option 1: hummus and raw vegetable and crackers (wheat thin) Option 2: cottage cheese (3/4 cup) with chives Option 3: grapes with nuts Other Nutrition Goals 60 grams of protein per day 20-25 grams of fiber per day Huff - 1 tbsp colombian plain yogurt with 1 tbsp huff Limit [...] pickled beets 9. Limit the frappachinos from [employer], try a cold brew coffee in the hot weather Call Sleep medicine: [phone] documented as of this encounter Visit Diagnoses Not on filedocumented in this encounter Care Teams Retanned Leather Roller Relationship Specialty Start Date End Date Jane Hector APRN [address] [place] [address] PCP - General Geriatric Medicine 07/18/23 documented as of this encounter
--- OUTSIDE RECORDS SUMMARY | 2024-05-29 02:27 | XMS_ITS | Encounter Summary ---
[place] [address] Care Team Providers Care Dispensing Optician Apprentice Name Role Phone Jaen Hector ZACK Primary Care Provider [phone] Encounter Details Date Type Department Care Team (Late st Contact Info) Description 08/09/2023 5:30 PM EDT Notes Only [place] [phone] Social History Tobacco Use Types Packs/Day Years [...] EDT Office Visit [place] [phone] Yamile Jesus MD [facility] [address] 09/09/2024 3:00 PM EST TH Visit (TeleHealth) Sleep Center at [facility] [address] [place] [address] Kaia Becker APRN [facility] [place] [address] documented as of this encounter Visit Diagnoses Not on filedocumented in this encounter Care Teams Dispensing Optician Apprentice Relationship Specialty Start Date End Date Jane Hector APRN [address] [place] [address] PCP - General Geriatric Medicine 07/18/23 documented as of this encounter
--- OUTSIDE RECORDS SUMMARY | 2024-05-29 02:27 | XMS_ITS | Encounter Summary ---
Author Organization [facility] [place] [address] Care Team Providers Care Financial Accounting Analyst Name Role Phone Jane Hector APRN Primary Care Provider [phone] Encounter Details Date Type Department Care Team (Late st Contact Info) Description 11/29/2023 2:30 PM EST TH Visit (TeleHealth) Weight [place] [phone] [facility] [place] [address] Adult BMI 40.0-44.9 kg/sq m Social History [...] * Patient Instructions* Gina Mendez RD - 11/29/2023 2:30 PM EST It was great to chat with youJes. Below are goals discussed today as well as in past visits. Please reach out with a [employer] message if you have any questions or concerns. Additionally, I will be going on maternity leave starting in early December. I will connect you with adifferent dietitian until I get back. I am happy to touch base with you on the phone prior to my maternity leave. Let me know if you have any questions. Thank you, Gina Mendez RD, LD Goals [...] and frozen broccoli) with sharp cheddar or marshallese cheese (if you want) with piece of fruit (20-25 grams of protein) Option 2: plain yogurt, scottish has more protein with small amount of [...] Option 2: tuna salad with 2 tbsp scottish plain yogurt with 2 tbsp huff over spinach or lettuce If needed, Snack: All 10 grams of protein Option 1: hummus and raw vegetable and crackers (wheat thin) Option 2: cottage cheese (3/4 cup) with chives Option 3: grapes with nuts Other Nutrition Goals 60 grams of protein per day 20-25 grams of fiber per day Huff - 1 tbsp scottish plain yogurt with 1 tbsp huff Limit Naked juice to 1 coffee cup per day (8oz) Limit the sweet treats to dark chocolate. Freeze portions of dark chocolate. Try to eat fruit as a carbohydrate instead of rice crispy cereal or bread. When having a sweet tooth: Sweet tooth: 2 tsp honey per tea Sweet tooth: fruit with peanut butter, nuts, or yogurt documented in this encounter Progress Notes * Gina Mendez RD - 11/29/2023 2:30 PM SANDOVALumphilipy: [facility] RD Follow-up Visit Nutrition Intervention for Weight Management Follow-up RD visit with Jes Harjinder EugeniaCARO 1960 Location: [facility] care team: Yamile Jesus Weight Today: Wt Readings from Last 3 Encounters: 11/01/23 117.9 kg (260 lb) 10/06/23 118.8 kg (261 lb 14.4 oz) 08/11/23 117.5 kg (259 lb) BMI Readings from Last 3 Encounters: 11/01/23 44.63 kg/m?? 10/06/23 44.96 kg/m?? 08/11/23 44.46 kg/m?? Pertinent Anti-Obesity Medications: tirzepatide - 10 mg // bupropion Interview: It was a pleasure speaking with Jes Bello today at the [facility]. Updates today Jes reports that occasionally she drinks more milk than she should. - 8oz, RD addressed Jes reports that she is still having issues with sleep. Jes reports that she still is having urges for sweets. - Patient discussed that her dose tirzepatide is down 10mg, from 15mg, which may be attributing to her sweet tooth Sweet tooth: 2 tsp honey per tea Sweet tooth: fruit with peanut butter, nuts, or yogurt Jes reports not eating enough vegetables. Try frozen spinach Try pickle beets Try fresh broccoli, potatoes, corns Jes reports not drinking as much juice. She still is partial to Naked juices. I set the goal of limiting to 8oz per day. Food Trackin11/01/2023- Jes is going to try to track with paper - patient brought up goal. - did not discuss Typical Dietary Intake: Jes typically has [...] soda [x] Juice or other sugar-sweetened - mrago naked fruit juice [x] Milk - 8oz, whole milk, not every day [] Alcohol [...] and frozen broccoli) with sharp cheddar or marshallese cheese (if you want) with piece of fruit (20-25 grams of protein) Option 2: plain yogurt, scottish has more protein with small amount of [...] Option 2: tuna salad with 2 tbsp scottish plain yogurt with 2 tbsp huff over spinach or lettuce If needed, Snack: All 10 grams of protein Option 1: hummus and raw vegetable and crackers (wheat thin) Option 2: cottage cheese (3/4 cup) with chives Option 3: grapes with nuts Other Nutrition Goals 60 grams of protein per day 20-25 grams of fiber per day Huff - 1 tbsp scottish plain yogurt with 1 tbsp huff Limit Naked juice to 1 coffee cup per day (8oz) Limit the sweet treats to dark chocolate. Freeze portions of dark chocolate. Try to eat fruit as a carbohydrate instead of rice crispy cereal or bread. When having a sweet tooth: Sweet tooth: 2 tsp honey per tea Sweet tooth: fruit with peanut butter, nuts, or yogurt Handouts provided today: This encounter is [facility] Registered Dietitian visit number [] 1 [] 2 [x] 3 [] ?4 Monitor/Evaluate: Return in about 8 weeks (around 01/24/2024) for RD, clinic or zoom, any RD . Thank you, Gina Mendez PhD, RD, LD 30 minutes were spent [id number] with this patient today, whether in person or by zoom as specified above documented in this encounter Plan of Treatment Upcoming Encounters Date Type Department Care Team (Late st Contact Info) Description 07/04/2024 12:00 PM EDT Office Visit Weight [place] [address] Yamile Jesus MD [facility] [place] [address] 09/09/2024 3:00 PM EST TH Visit (TeleHealth) Sleep Center at [address] [place] [address] Kaia Becker APRN [facility] [place] [address] documented as of this encounter Goals Goal [...] and frozen broccoli) with sharp cheddar or marshallese cheese (if you want) with piece of fruit (20-25 grams of protein) Option 2: plain yogurt, scottish has more protein with small amount of [...] Option 2: tuna salad with 2 tbsp scottish plain yogurt with 2 tbsp huff over spinach or lettuce If needed, Snack: All 10 grams of protein Option 1: hummus and raw vegetable and crackers (wheat thin) Option 2: cottage cheese (3/4 cup) with chives Option 3: grapes with nuts Other Nutrition Goals 60 grams of protein per day 20-25 grams of fiber per day Huff - 1 tbsp scottish plain yogurt with 1 tbsp huff Limit [...] pickled beets 9. Limit the frappachinos from [employer], try a cold brew coffee in the hot weather Call Sleep medicine: [phone] documented as of this encounter Visit Diagnoses Diagnosis Adult BMI 40.0-44.9 kg/sq m Body Mass Index 40.0-44.9, adult documented in this encounter Care Teams Financial Accounting Analyst Relationship Specialty Start Date End Date Jane Hector APRN [address] [place] [address] PCP - General Geriatric Medicine 07/18/23 documented as of this encounter
--- OUTSIDE RECORDS SUMMARY | 2024-05-29 02:27 | XMS_ITS | Encounter Summary ---
[place] [address] Care Team Providers Care Critical Care Registered Nurse Name Role Phone Yissel Guerra APRN Primary Care Provider [phone] Encounter Details Date Type Department Care Team (Late st Contact Info) Description 06/07/2023 12:30 PM EDT Office Visit [place] [address] Yamile Jesus MD [facility] [address] [place] [address] Type 2 diabetes mellitus without complication, unspecified whether prison insulin use; Hypertension, unspecified type; Mixed anxiety and depressive [...] Sign Reading Time Taken Comments Blood Pressure 120/65 06/07/2023 12:20 PM EDT Pulse 85 06/07/2023 12:20 PM EDT Temperature - - Respiratory Rate - - Oxygen Saturation 96% 06/07/2023 12: 20 PM EDT Inhaled Oxygen Concentration - - Weight 115.6 kg (254 lb 12.8 oz) 2022 12:20 PM EDT Height 161.9 cm (5' 3.75) 06/07/2023 1 2:20 PM EDT Body Mass Index 44.08 06/07/2023 12:20 PM EDT documented in this encounter Progress Notes * Yamile Jesus MD - 06/07/2023 12:30 PM EDTSummary: 4th visit with MD Images from the original note were not included. [facility]ness [facility] Patient Name: Jes Bello Date of : 1960 Age: 62 y.o. Yissel Guerra APRN Thank you for referring Jes Bello to the [facility] Wellness Center. I saw her for a follow-up visit today, 06/12/23. Please see changes to care as documented in the assessment and plan. CHIEF COMPLAINT: F/u for treatment of WHO Class 3 / EOSS Stage 2 Obesity, defined by BMI at presentation, with comorbidities:HTN, DM 2, anxiety/depression, thyroid disease. . This is Visit #4 [facility] visit for this 62 y.o. patient. Initial weight 12/03/22: 284 lbs 02/03/2023, no new weight 04/14/2023, 251 lbs (- 33 lbs) 06/07/2023, 254 lbs (+ 3 lbs, - 30 lbs) [facility] Team: RD in the community HPI Had US done for DUB, on norethindrone, states lining is thickened, going to have IUD placed in Jun. Notes a mole top of scalp, picture taken by psychology department chair, will show PCP. PILLARS Stress - not really stressed out Sleep - sleep consultation in Jun. Still not sleeping well - racing thoughts, switching Buspar to night-time to help with this? Exercise - fatigued, mobility issues Nutrition - eating one big meal a day Appetite suppression the same Craving fats - eggs, ice cream, full fat milk Yesterday, had two small chicken breast with skin AOM: Currently taking: Mounjaro 10 mg AOM HX: Jardiance (DM 2) - [...] HLP-LS []Culinary []ACT []Monthly Lifestyle Classes Discussion 06/12/23:Current pathways reviewed. Doing relatively well, will increase Mounjaro to 12.5 mg. Cont f/u. No data to display VITAL SIGNS: Vitals: 06/07/23 1220 BP: 120/65 BP Location ([facility]): Right arm Patient Position: Sitting BP Cuff Sizes: Large Adult (32-43 cm) Pulse: 85 SpO2: 96% Weight: 115.6 kg (254 lb 12.8 oz) Height: 161.9 cm (5' 3.75) Body mass index is 44.08 kg/m??. PHYSICAL EXAM: Gen: Alert and appropriate, [...] found for: GLUCFASTING No results found for: [id number] No results found for: 25OHVITD No results [...] Depression, CIARA-untreated and Thyroid dz Referrals pending: HLP AOM: Leigh Diagnoses and all orders for this visit: Type 2 diabetes mellitus without complication, unspecified whether intermission coordinator insulin use Hypertension, unspecified type Mixed anxiety and depressive disorder Hypothyroidism, unspecified type CIARA (obstructive sleep apnea) Class 3 severe obesity with serious comorbidity and body mass index (BMI) of 40.0 to 44.9 in adult,unspecified obesity type No orders of the defined types were placed in this encounter. Return in about 8 weeks (around 08/02/2023) for In person or Zoom, With me. 1 min chart review 25 min [id number] visit 5 min documentation time I spent [...] EDT Office [place] [address] Yamile Jesus MD [facility] [address] [place] [address] 09/09/2024 3:00 PM EST TH Visit (TeleHealth) Sleep Center at [facility] [address] [place] [address] Kaia Becker APRN [facility] [place] [address] documented as of this encounter Visit Diagnoses Diagnosis Type 2 diabetes mellitus without complication, unspecified whether intermission coordinator insulin use Hypertension, unspecified type Mixed anxiety and depressive disorder Dysthymic disorder Hypothyroidism, unspecified type CIARA (obstructive sleep apnea) Obstructive sleep apnea (adult) (pediatric) Class 3 severe obesity with serious comorbidity and body mass index (BMI) of 40.0 to 44.9 in adult, unspecified obesity type documented in this encounter Care Teams Critical Care Registered Nurse Relationship Specialty Start Date End Date Yissel Guerra APRN PCP - General Family Medicine 07/04/22 07/17/23 documented as of this encounter
--- OUTSIDE RECORDS SUMMARY | 2024-05-29 02:27 | XMS_ITS | Encounter Summary ---
Author Organization [facility] [place] [address] Care Team Providers Care Trimming Press Operator Name Role Phone Jane Hector APRN Primary Care Provider [phone] Reason for Visit * Reason Comments Medication Refill Encounter Details Date Type Department Care Team (Late st Contact Info) Description 07/18/2023 Refill [place] [address] Yamile Jesus MD [facility] [place] [address] Type 2 diabetes mellitus without complication, unspecified [...] EDT Office [place] [phone] Yamile Jesus MD [facility] [place] [address] 09/09/2024 3:00 PM EST TH Visit (TeleHealth) Sleep Center at [facility] [address] [place] [address] Kaia Becker APRN [facility] [place] [address] documented as of this encounter Visit Diagnoses Diagnosis Type 2 diabetes mellitus without complication, unspecified whether meterman insulin use documented in this encounter Care Teams Trimming Press Operator Relationship Specialty Start Date End Date Jane Hector APRN [address] [place] [address] PCP - General Geriatric Medicine 07/18/23 documented as of this encounter
--- OUTSIDE RECORDS SUMMARY | 2024-05-29 02:27 | XMS_ITS | Encounter Summary ---
Author Organization [facility] [place] [address] Care Team Providers Care Quill Collector Name Role Phone Jane Hector APRN Primary Care Provider [phone] Encounter Details Date Type Department Care Team (Late st Contact Info) Description 12/05/2023 Telephone [place] [address] Yamile Jesus MD [facility] [address] [address] Social History Tobacco Use Types Packs/Day Years Used Date Smoking Tobacco: Never Smokeless Tobacco: Never Sex and Gender Information Value Date Recorded Sex Assigned at Female 08/24/2023 3:35 PM EDT Gender Identity Female 08/24/2023 3:29 PM EDT Sexual Orientation Straight 08/24/2023 3: 35 PM EDT documented as of this encounter Miscellaneous Notes * Telephone Encounter - Gina Gillespie RN - 12/06/2023 3:47 PM EST Called pt. The [facility] can order Mounjaro 7.5 mg to have for her tomorrow. I don't know what timethe shipments get in so call before you go pick it up. Pt verbalized understanding. * Telephone Encounter - Gina Gillespie RN - 12/06/2023 3:36 PM EST Called [facility] to see what doses of Mounjaro they have in stock. 7.5 mg is the highest order able available * Telephone Encounter - Gina Gillespie RN - 12/06/2023 3:28 PM EST Jes called back and stated that the [facility] has not Mounjaro and the [facility] in [facility] lower doses. I will call the [facility] and confirm what the highest dose that they have and ask Dr. Jesus to send that in for her. * Telephone Encounter - Gina Gillespie RN - 12/06/2023 2:07 PM EST Spoke with pt. She will be checking with local pharmacies to see if they have Mounjaro 12.5 mg and will let me know by the end of the day. If I do not hear from her than we will send in 10 mg. * Telephone Encounter - Isabella Savage - 12/06/2023 11:24 AM EST Patient called back regarding medication issue, states [facility] has 10 mg and 5 mg, but to please try [facility] first as it is closer to her. * Telephone Encounter - Mary Alfaro - 12/05/2023 2:34 PM EST Pharmacy or caller: Jes Bello Medication: mounjaro Message: Patient states she is unable to get this medication at her pharmacy or any other pharmacy in the area. [facility] is due to get it in on the 16 but patient is due on the 15 and is worriedshe won't get it in time. Please call patient to advise. Did you contact your pharmacy?: yes documented in this encounter Plan of Treatment Upcoming Encounters Date Type Department Care Team (Late st Contact Info) Description 07/04/2024 12:00 PM EDT Office Visit Weight and Wellness at [facility] [place] [address] Yamile Jesus MD [facility] [place] [address] 09/09/2024 3:00 PM EST TH Visit (TeleHealth) Sleep Center at [facility] [address] [place] [address] Kaia Becker APRN [facility] [place] [place] [address] documented as of this encounter Goals Goal [...] and frozen broccoli) with sharp cheddar or kuwaiti cheese (if you want) with piece of fruit (20-25 grams of protein) Option 2: plain yogurt, bolivian has more protein with small amount of [...] Option 2: tuna salad with 2 tbsp bolivian plain yogurt with 2 tbsp huff over spinach or lettuce If needed, Snack: All 10 grams of protein Option 1: hummus and raw vegetable and crackers (wheat thin) Option 2: cottage cheese (3/4 cup) with chives Option 3: grapes with nuts Other Nutrition Goals 60 grams of protein per day 20-25 grams of fiber per day Huff - 1 tbsp bolivian plain yogurt with 1 tbsp huff Limit [...] pickled beets 9. Limit the frappachinos from [employer], try a cold brew coffee in the hot weather Call Sleep medicine: [phone] documented as of this encounter Visit Diagnoses Not on filedocumented in this encounter Care Teams Quill Collector Relationship Specialty Start Date End Date Jane Hector APRN [address] [facility] [address] PCP - General Geriatric Medicine 07/18/23 documented as of this encounter
--- OUTSIDE RECORDS SUMMARY | 2024-05-29 02:27 | XMS_ITS | Encounter Summary ---
Author Organization [facility] [place] [address] Care Team Providers Care Housing Property Manager Name Role Phone Jane Hector ZACK Primary Care Provider [phone] Encounter Details Date Type Department Care Team (Latest Contact Info) Description 01/06/2024 Travel Social History Tobacco Use Types Packs/Day [...] EDT Office Visit [place] [address] Yamile Jesus MD [facility] [place] [address] 09/09/2024 3:00 PM EST TH Visit (TeleHealth) Sleep Center at [facility] [address] [place] [address] Kaia Becker APRN [facility] [place] [address] documented as of this encounter Goals Goal [...] pickled beets 9. Limit the frappachinos from [employer], try a cold brew coffee in the hot weather Call Sleep medicine: [phone] documented as of this encounter Visit Diagnoses Not on filedocumented in this encounter Care Teams Housing Property Manager Relationship Specialty Start Date End Date Jane Hector APRN [address] [place] [address] PCP - General Geriatric Medicine 07/18/23 documented as of this encounter
--- OUTSIDE RECORDS SUMMARY | 2024-05-29 02:27 | XMS_ITS | Encounter Summary ---
Author Organization Formerly [facility] Address [facility] [place] [address] Care Team Providers Care Faro Dealer Name Role Phone Jane Hector APRN Primary Care Provider [phone] Reason for Referral * Consultation (Routine) - Closed Specialty Diagnoses / Procedures Referred By Darvin segovia Referred To Contact Sleep Center Diagnoses CIARA (obstructive sleep apnea) Insomnia, unspecified type Yamile Jesus MD [facility] [place] [address] [facility] Sleep Medicine [address] [place] [address] Referral ID Status Reason Start Date Expiration Date V isits Requested Visits Authorized [id number] Closed Consult, Test & Treat 10/06/2023 10/05/2024 1 1 Encounter Details Date Type Department Care Team (Late st Contact Info) Description 10/06/2023 11:30 AM EST Office [place] [address] Yamile Jesus MD [facility] [place] [address] Type 2 diabetes mellitus without complication, unspecified whether director long term care insulin use; Class 3 severe obesity with serious comorbidity and body mass index (BMI) of 40.0 to 44.9 in adult, unspecified obesity type; Gastroesophageal reflux disease, unspecified whether esophagitis present; [...] Sign Reading Time Taken Comments Blood Pressure 90/74 10/06/2023 11:38 AM EST Pulse 83 10/06/2023 11:38 AM EST Temperature - - Respiratory Rate - - Oxygen Saturation 98% 10/06/2023 11: 38 AM EST Inhaled Oxygen Concentration - - Weight 118.8 kg (261 lb 14.4 oz) 10/06/2023 11:38 AM EST with cowboy boots on Height 162.6 cm (5' 4) 10/06/2023 11:3 8 AM EST Body Mass Index 44.96 10/06/2023 11:38 AM EST documented in this encounter Progress Notes * Yamile Jesus MD - 10/06/2023 11:30 AM ESTSummary: 6th visit with MD Images from the original note were not included. [facility] Wellness [facility] Patient Name: Jes Bello Date of : 1960 Age: 63 y.o. Jane Hector APRN Thank you for referring Jes Bello to the Weight and Wellness Center. I saw her for a follow-up visit today, 10/09/23. Please see changes to care as documented in the assessment and plan. CHIEF COMPLAINT: F/u for treatment of WHO Class 3 / EOSS Stage 2 Obesity, defined by BMI at presentation, with comorbidities:HTN, DM 2, anxiety/depression, thyroid disease. . This is Visit #6 [facility] visit for this 63 y.o. patient. Initial weight 12/03/22: 284 lbs 02/03/2023, no new weight 04/14/2023, 251 lbs (- 33 lbs) 06/07/2023, 254 lbs (+ 3 lbs, - 30 lbs) 08/11/2023, 259 lbs (+ 4 lbs, - 26 lbs) 10/06/2023, 261 lbs (+ 2 lbs, - 24 lbs) [facility] Team: RD in the community HPI More depressed bc of sleep deprivation. Having some diarrhea from Mounjaro, usually in the morning, past few morning. A little concerned about that. PILLARS Stress - really focused on sleeping issues and getting sleep meds - trying every possible supplement - benadryl, vicks Z-quil, antihistamine, melatonin, magnesium, L-theanine. States sometimes they work for a while but then nothing is effective director long term care. Sleep - d/w CIARA 20+ years ago. Tried using CPAP machine but cannot tolerate. Now sleep issues are not the same - no longer sleepy during the day - used to be able to fall asleep standing up. Used to be sleepy tired. Also used to wake up gasping. NOW I literally cannot fall asleep if I am tired, starts to wind down at the end of the day and then I go to bed and I cannot sleep. Sometimes if I am exhausted I will doze but I do not get deep sleep. Exercise - fatigued, mobility issues Nutrition - Seeing Selam Mendez AOM: Currently taking: Mounjaro 15 mg AOM HX: Jardiance (DM 2) - [...] needs f/u, refer to sleep med - message sent to sleep med at [facility] tosee if they can expedite a consult for persistent and severe insomnia Self-monitoring: Food log Groups of interest: []HLP-ES [] HLP-MS [] HLP-LS []Culinary []ACT []Monthly Lifestyle Classes Discussion 10/09/23:Current pathways reviewed. Extensive conversation had with Jes regarding my credentials today. I assured her that I am in fact Board Certified in Surgery and Obesity Medicine and licensed in [place], [place] and [place]. She was unable to find my info online and is concerned about my credibility as there was an imposter police chief in her town that caused problems. I explain I do not wear white coats for a multitude of reasons and keep my stethoscope in my bag under my desk. I was able to show her my NPI profile and I printed that for her. Additionally, she is disappointed in her weight loss and reports that she often fires doctors that fail her. I did state I could consult with our new maintenance chief regarding her care, she is on maximal therapy with Mounjaro 15 mg, and given her behavioral health issues, other AOMs (phentermine, topiramate, wellbutrin, likely C/I). She is having diarrhea 3x a week, but I suspect this is related tothe Mg she is taking for insomnia although she disagrees; we can change to Ozempic should the diarrhea become debilitating. Although she wishes to consult with Dr. Montgomery, she does want to continue seeing me as well. She isworking with our RD. I am not sure that BS is a good option for her. I will reach out to her other providers given the nature of our visit today and the concerns I havefor her, particularly with this severe insomnia and the element of paranoia vs mistrust Jes exhibited today which is totally new for her. No data to display VITAL SIGNS: Vitals: 10/06/23 1138 BP: 90/74 BP Location (NBP): Right arm Patient Position: Sitting BP Cuff Sizes: Large Adult (32-43 cm) Pulse: 83 SpO2: 98% Weight: 118.8 kg (261 lb 14.4 oz) Height: 162.6 cm (5' 4) Body mass index is 44.96 kg/m??. PHYSICAL EXAM: Gen: Alert and appropriate, [...] found for: GLUCFASTING No results found for: [id number] No results found for: 25OHVITD No results [...] Depression, CIARA-untreated and Thyroid dz Referrals pending: DANIAL AOM: Leigh 15 mg Diagnoses and all orders for this visit: Type 2 diabetes mellitus without complication, unspecified whether director long term care insulin use Class 3 severe obesity with serious comorbidity and body mass index (BMI) of 40.0 to 44.9 in adult,unspecified obesity type Gastroesophageal reflux disease, unspecified whether esophagitis present Hypertension, unspecified type Mixed anxiety and depressive disorder Hypothyroidism, unspecified type CIARA (obstructive sleep apnea) - Referral to Sleep Disorders Center Insomnia, unspecified type - Referral to Sleep Disorders Center Orders Placed This Encounter Procedures Referral to Sleep Disorders Center Return for With me - please hold off on scheduling until I can speak wtih her PCP and psych team . 1 min chart review 60 min utso-lz-[id number] visit 5 min documentation time I spent [...] EDT Office [place] [address] Yamile Jesus MD [facility] [place] [address] 09/09/2024 3:00 PM EST TH Visit (TeleHealth) Sleep Center at [address] [place] [address] Kaia Becker APRN [facility] [place] [address] Scheduled Referrals Name Type Priority Associated Diagnoses Orde r Schedule Referral to Sleep Disorders Center Outpatient Referral Routine CIARA (obstructive sleep apnea) Insomnia, unspecified type Ordered: 10/06/2023 documented as of this encounter Goals Goal [...] and frozen broccoli) with sharp cheddar or polish cheese (if you want) with piece of fruit (20-25 grams of protein) Option 2: plain yogurt, citizen of [place] has more protein with small amount of [...] Option 2: tuna salad with 2 tbsp citizen of [place] plain yogurt with 2 tbsp huff over spinach or lettuce If needed, Snack: All 10 grams of protein Option 1: hummus and raw vegetable and crackers (wheat thin) Option 2: cottage cheese (3/4 cup) with chives Option 3: grapes with nuts Other Nutrition Goals 60 grams of protein per day 20-25 grams of fiber per day Huff - 1 tbsp citizen of [place] plain yogurt with 1 tbsp huff Limit [...] pickled beets 9. Limit the frappachinos from [employer], try a cold brew coffee in the hot weather Call Sleep medicine: [phone] documented as of this encounter Visit Diagnoses Diagnosis Type 2 diabetes mellitus without complication, unspecified whether director long term care insulin use Class 3 severe obesity with serious comorbidity and body mass index (BMI) of 40.0 to 44.9 in adult, unspecified obesity type Gastroesophageal reflux disease, unspecified whether esophagitis present Hypertension, unspecified type Mixed anxiety and depressive disorder Dysthymic disorder Hypothyroidism, unspecified type CIARA (obstructive sleep apnea) Obstructive sleep apnea (adult) (pediatric) Insomnia, unspecified type documented in this encounter Care Teams Faro Dealer Relationship Specialty Start Date End Date Jane Hector APRN [facility] [place] [address] PCP - General Geriatric Medicine 07/18/23 documented as of this encounter
--- OUTSIDE RECORDS SUMMARY | 2024-05-29 02:27 | XMS_ITS | Encounter Summary ---
[place] [address] Care Team Providers Care Senior Data Scientist Name Role Phone Yissel Guerra APRN Primary Care Provider [phone] Encounter Details Date Type Department Care Team (Late st Contact Info) Description 06/01/2023 Telephone [place] [phone] Gina Gillespie RN Social History Tobacco Use Types Packs/Day Years Used Date Smoking Tobacco: Never Smokeless Tobacco: Never Sex and Gender Information Value Date Recorded Sex Assigned at Female 08/24/2023 3:35 PM EDT Gender Identity Female 08/24/2023 3:29 PM EDT Sexual Orientation Straight 08/24/2023 3: 35 PM EDT documented as of this encounter Miscellaneous Notes * Telephone Encounter - Gina Gillespie RN - 06/01/2023 11:04 AM EDT Called pt. I am not sure why all of a sudden you are getting those questions. Masks are still optional at . There are not specific provider concerns. * Telephone Encounter - Gina Gillespie RN - 06/01/2023 11:01 AM EDT Pt called stating that she has received a message from the portal asking about travel, symptoms, and Covid exposure. She has not received it before. Questioning if there has been any changes or provider concerns. documented in this encounter Plan of Treatment Upcoming Encounters Date Type Department Care Team (Late st Contact Info) Description 07/04/2024 12:00 PM EDT Office Visit [place] [address] Yamile Jesus MD [facility] [place] [address] 09/09/2024 3:00 PM EST TH Visit (TeleHealth) Sleep Center at [place] [address] [place] [address] Kaia Becker APRN [facility] [address] documented as of this encounter Visit Diagnoses Not on filedocumented in this encounter Care Teams Senior Data Scientist Relationship Specialty Start Date End Date Yissel Guerra APRN PCP - General Family Medicine 07/04/22 07/17/23 documented as of this encounter
--- OUTSIDE RECORDS SUMMARY | 2024-05-29 02:27 | XMS_ITS | Encounter Summary ---
Author Organization [facility] [place] [address] Care Team Providers Care Dean Name Role Phone Jane Hector APRN Primary Care Provider [phone] Encounter Details Date Type Department Care Team (Late st Contact Info) Description 01/10/2024 11:00 AM EDT Office Visit [place] [address] Yamile Jesus MD [facility] [address] [place] [address] Class 3 severe obesity with serious comorbidity and body mass index (BMI) of 45.0 to 49.9 in adult, unspecified obesity type (Primary Dx); Type 2 diabetes mellitus without complication, unspecified whether terminal operations supervisor insulin use; Gastroesophageal reflux disease, unspecified whether [...] Mass Index 45.28 01/10/2024 11:09 AM EDT documented in this encounter Patient Instructions * Patient Instructions* Yamile Jesus MD - 01/10/2024 11:00 AM EDT Meal Timing Brunch: 10am Lunch: 12-2pm - Meals on Wheels Dinner: 5-7pm Meal Structure Brunch: Option 1: egg (3) with vegetables (frozen peppers and frozen broccoli) with sharp cheddar or pakistani cheese (if you want) with piece of fruit (20-25 grams of protein) Option 2: plain yogurt, palestinian has more protein with small amount of [...] Option 2: tuna salad with 2 tbsp palestinian plain yogurt with 2 tbsp huff over spinach or lettuce If needed, Snack: All 10 grams of protein Option 1: hummus and raw vegetable and crackers (wheat thin) Option 2: cottage cheese (3/4 cup) with chives Option 3: grapes with nuts Other Nutrition Goals 60 grams of protein per day 20-25 grams of fiber per day Huff - 1 tbsp palestinian plain yogurt with 1 tbsp huff Limit [...] Progress Notes * Yamile Jesus MD - 01/10/2024 11:00 AM EDTSummary: 7th visit with Images from the original note were not included. [facility] & Wellness Center Patient Name: Jes Bello Date of : 1960 Age: 63 y.o. Jane Hector APRN Thank you for referring Jes Bello to the Weight and Wellness Center. I saw her for a follow-up visit today, 01/11/24. Please see changes to care as documented in the assessment and plan. CHIEF COMPLAINT: F/u for treatment of WHO Class 3 / EOSS Stage 2 Obesity, defined by BMI at presentation, with comorbidities:HTN, DM 2, anxiety/depression, thyroid disease. This is Visit #7 [facility] visit for this 63 y.o. patient. Initial weight 12/03/22: 284 lbs 02/03/2023, no new weight 04/14/2023, 251 lbs (- 33 lbs) 06/07/2023, 254 lbs (+ 3 lbs, - 30 lbs) 08/11/2023, 259 lbs (+ 4 lbs, - 26 lbs) 10/06/2023, 261 lbs (+ 2 lbs, - 24 lbs) 01/10/2024, 263 lbs (+ 2 lbs, - 23 lbs) [facility] Team: RD in the community HPI Cannot get 15 mg of Mounjaro. Off for 13 days now. Pharmacy has 1 mg Ozempic. Having some nausea, diarrhea that is coming and going. Had coffee on an empty stomach. PILLARS Stress - there are stressors, running out of Mounjaro, changing to Ozempic. Sleep - tried Lunesta 1 and 2 mg. But no refills and Katalina Chahal has left . Exercise - physically tired but joining a gym - [employer], free membership. Nutrition - Flipped out a little bit over the meds - I started to fell funny Drank more milk, sugar has been a problem. Lowered her Wellbutrin. AOM: Currently taking: Mounjaro 15 mg AOM [...] needs f/u, refer to sleep med - saw sleep med, rx Lunesta Self-monitoring: Food log Groups of interest: []HLP-ES [] HLP-MS [] HLP-LS []Culinary []ACT []Monthly Lifestyle Classes Discussion 01/11/24:Current pathways reviewed. Rightfully anxious about transitioning from Mounjaroto Ozempic, understands shortages are nationwide. Will start with 1 mg and increase to 2 mg over time. Will message PCP re Baileeestonesimo given Katalina has left sleep medicine. Cont f/u. No data to display VITAL SIGNS: Vitals: 01/10/24 1109 BP: 124/63 Pulse: 78 SpO2: 95% Weight: 119.7 kg (263 lb 12.8 oz) Height: 162.6 cm (5' 4) Body mass index is 45.28 kg/m??. PHYSICAL EXAM: Gen: Alert and appropriate, [...] found for: GLUCFASTING No results found for: OBIFULIB35 No results found for: 25OHVITD No results [...] at this time AOM management today: Mounjaro 15 mg -> Ozempic 1 mg during shortages Diagnoses and all orders for this visit: Class 3 severe obesity with serious comorbidity and body mass index (BMI) of 45.0 to 49.9 in adult,unspecified obesity type Type 2 diabetes mellitus without complication, unspecified whether senior care insulin use Gastroesophageal reflux disease, unspecified whether esophagitis present Hypertension, unspecified type Mixed anxiety and depressive disorder Hypothyroidism, unspecified type CIARA (obstructive sleep apnea) Insomnia, unspecified type No orders of the defined types were placed in this encounter. Return in about 2 months (around 03/11/2024) for In person or Zoom, With me. 1 min chart review 25 min ejfg-cb-ydor visit 5 min documentation time I spent [...] EDT Office Visit Weight and Wellness at [facility] [place] [address] Yamile Jesus MD [facility] [place] [address] 09/09/2024 3:00 PM EST TH Visit (TeleHealth) Sleep Center at [facility] [address] [place] [phone] Kaia Becker APRN [facility] [place] [address] documented as of this encounter Goals Goal [...] grams of protein) Option 2: plain yogurt, palestinian has more protein with small amount of [...] Option 2: tuna salad with 2 tbsp palestinian plain yogurt with 2 tbsp huff over spinach or lettuce If needed, Snack: All 10 grams of protein Option 1: hummus and raw vegetable and crackers (wheat thin) Option 2: cottage cheese (3/4 cup) with chives Option 3: grapes with nuts Other Nutrition Goals 60 grams of protein per day 20-25 grams of fiber per day Huff - 1 tbsp palestinian plain yogurt with 1 tbsp huff Limit [...] in the hot weather Call Sleep medicine: [phone] documented as of this encounter Visit Diagnoses Diagnosis Class 3 severe obesity with serious comorbidity and body mass index (BMI) of 45.0 to 49.9 in adult, unspecified obesity type- Primary Type 2 diabetes mellitus without complication, unspecified whether senior care insulin use Gastroesophageal reflux disease, unspecified whether esophagitis present Hypertension, unspecified type Mixed anxiety and depressive disorder Dysthymic disorder Hypothyroidism, unspecified type CIARA (obstructive sleep apnea) Obstructive sleep apnea (adult) (pediatric) Insomnia, unspecified type documented in this encounter Care Teams Dean Relationship Specialty Start Date End Date Jane [place] [address] PCP - General Geriatric Medicine 07/18/23 documented as of this encounter
--- OUTSIDE RECORDS SUMMARY | 2024-05-29 02:27 | XMS_ITS | Encounter Summary ---
[place] [address] Care Team Providers Care Insole Filler Name Role Phone Yissel Guerra APRN Primary Care Provider Encounter Details Date Type Department Care Team (Late st Contact Info) Description 06/29/2023 12:00 PM EDT Notes Only [place] [phone] Social History Tobacco Use Types Packs/Day Years [...] EDT Office [place] [phone] Yamile Jesus MD [facility] [place] [address] 09/09/2024 3:00 PM EST TH Visit (TeleHealth) Sleep Center at [facility] [address] [place] [address] Kaia Becker APRN [facility] [place] [address] documented as of this encounter Visit Diagnoses Not on filedocumented in this encounter Care Teams Insole Filler Relationship Specialty Start Date End Date Yissel Guerra APRN PCP - General Family Medicine 07/04/22 07/17/23 documented as of this encounter
--- OUTSIDE RECORDS SUMMARY | 2024-05-29 02:27 | XMS_ITS | Encounter Summary ---
[place] [address] Care Team Providers Care Nuclear Chemistry Technician Name Role Phone Jane Hector APRN Primary Care Provider [phone] Reason for Visit * Reason Onset Date Comments Other 11/22/2023 Encounter Details Date Type Department Care Team (Late st Contact Info) Description 11/22/2023 Telephone [place] [phone] Yamile Jesus MD [facility] [address] [facility] [address] Other Social History Tobacco Use Types Packs/Day Years Used Date Smoking Tobacco: Never Smokeless Tobacco: Never Sex and Gender Information Value Date Recorded Sex Assigned at Female 08/24/2023 3:35 PM EDT Gender Identity Female 08/24/2023 3:29 PM EDT Sexual Orientation Straight 08/24/2023 3: 35 PM EDT documented as of this encounter Miscellaneous Notes * Telephone Encounter - Hector Botello - 11/22/2023 12:50 PM EST Patient asked for this message to be sent to Dr. Jesus, regarding the telehealth visits. Palomo Ovalle! I just found out today, that you wish to see me virtually only. I [facility]ially [facility]. I tried to find this out and didn't find antyhing I no longer have Nany's notice on this. Why is this pleasE? I've been seeing you in person, and you asked me initially if I woudl like to come see you, and I said yes. and have been seeing you fora while now in person, which is what I prefer. I did not mean to offend you at our last meeting by the way. I asked you some questions about your credentials, which I believe is my, and any patient's right? When one goes to a ctc operator, for example, one asks about similar cases how many etc, and what number the ctc operator has had and won. Same principle here. It simply didn not appear to me at time that you looked like a doctor much. I asked for copies of your licensure which you gave me. I have since looked at them and am satisfied with this. I'm sorry if I caused you any hard feelings, was not my intention! I would like to continue to see you in person if possble. Thakn you. PS if not, I would like an explanation about the decision on your part to go only virtual with me. I'd like an explanation anyway. Hopefully, we can work this out! YoursJes * Telephone Encounter - Stefania Broussard - 11/22/2023 10:28 AM EST Message: Patient calling today to reschedule 11/29 appt. Patient states Wednesdays are not good and needs a different day, but was told provider was available a second day. This agent unable to find another day. Patient also wants to confirm that appts are virtual only for [facility]. Patient states DH calls sometimes go to [facility]. Please leave a detailed message answering the above questions, or leave a good time to call patient and patient will return call to Nany. Patient asked for Nany specifically. This agent spoke with Nany. OK to message. Ask caller their first and last name and relationship to the patient: Jes Bello Best time to call back: as soon as possible Ok to leave a message: yes Ok to send my- message: yes Offered Appointment: yes, patient declined Message: y Call made to office secretary or nurse Y/N y Pager: Y/N n documented in this encounter Plan of Treatment Upcoming Encounters Date Type Department Care Team (Late st Contact Info) Description 07/04/2024 12:00 PM EDT Office Visit Weight and Wellness at [facility] [place] [address] Yamile Jesus MD [facility] [place] [address] 09/09/2024 3:00 PM EST TH Visit (TeleHealth) Sleep Center at [facility] [address] [phone] Kaia Becker APRN [facility] [place] [address] documented as of this encounter Goals Goal [...] and frozen broccoli) with sharp cheddar or ivorian cheese (if you want) with piece of fruit (20-25 grams of protein) Option 2: plain yogurt, senegalese has more protein with small amount of [...] Option 2: tuna salad with 2 tbsp senegalese plain yogurt with 2 tbsp huff over spinach or lettuce If needed, Snack: All 10 grams of protein Option 1: hummus and raw vegetable and crackers (wheat thin) Option 2: cottage cheese (3/4 cup) with chives Option 3: grapes with nuts Other Nutrition Goals 60 grams of protein per day 20-25 grams of fiber per day Huff - 1 tbsp senegalese plain yogurt with 1 tbsp huff Limit [...] pickled beets 9. Limit the frappachinos from [employer], try a cold brew coffee in the hot weather Call Sleep medicine: [phone] documented as of this encounter Visit Diagnoses Not on filedocumented in this encounter Care Teams Nuclear Chemistry Technician Relationship Specialty Start Date End Date Jane Hector APRN [address] [place] [address] PCP - General Geriatric Medicine 07/18/23 documented as of this encounter
--- OUTSIDE RECORDS SUMMARY | 2024-05-29 02:27 | XMS_ITS | Encounter Summary ---
[place] [address] Care Team Providers Care Ironer Or Presser Name Role Phone Jane Hector APRN Primary Care Provider [phone] Reason for Visit * Reason Onset Date Comments Medication Problem 08/15/2023 Encounter Details Date Type Department Care Team (Late st Contact Info) Description 08/15/2023 Telephone [place] [address] Nany Dobson Medication Problem Social History Tobacco [...] Telephone Encounter - Gina Gillespie RN - 08/15/2023 9:31 AM EDT Spoke with pt. If she is unable to get the 15 mg as recommended by Dr. Jesus. It is recommended that she take the 12.5 mg. DO NOT take the 12.5 and the 10 mg together. Pt wants to make sure that Dr. Jesus is aware and that is her recommendation. Pt takes injection on . I can call or send [facility] message if there is a change in the plan. * Telephone Encounter - Nany Dobson - 08/15/2023 9:14 AM EDT Pharmacy or caller: Jes Bello Medication: tirzepatide Message: The [facility] does not have the 15mg. However did give Jes the 12.5mg and she also already has the 10mg. She is asking if she should take the 12.5mg or the 10mg or take both together,please call patient with medication instructions. Did you contact your pharmacy?: yes documented in this encounter Plan of Treatment Upcoming Encounters Date Type Department Care Team (Late st Contact Info) Description 07/04/2024 12:00 PM EDT Office Visit Weight [place] [address] Yamile Jesus MD [facility] [place] [address] 09/09/2024 3:00 PM EST TH Visit (TeleHealth) Sleep Center at [place] [address] [address] Kaia Becker APRN [facility] [place] [address] documented as of this encounter Goals Goal [...] and frozen broccoli) with sharp cheddar or nigerien cheese (if you want) with piece of fruit (20-25 grams of protein) Option 2: plain yogurt, ecuadorean has more protein with small amount of [...] Option 2: tuna salad with 2 tbsp ecuadorean plain yogurt with 2 tbsp huff over spinach or lettuce If needed, Snack: All 10 grams of protein Option 1: hummus and raw vegetable and crackers (wheat thin) Option 2: cottage cheese (3/4 cup) with chives Option 3: grapes with nuts Other Nutrition Goals 60 grams of protein per day 20-25 grams of fiber per day Huff - 1 tbsp ecuadorean plain yogurt with 1 tbsp huff Limit [...] in the hot weather Call Sleep medicine: [phone] documented as of this encounter Visit Diagnoses Not on filedocumented in this encounter Care Teams Ironer Or Presser Relationship Specialty Start Date End Date Jane Hector APRN [employer] [place] [address] PCP - General Geriatric Medicine 07/18/23 documented as of this encounter
--- OUTSIDE RECORDS SUMMARY | 2024-05-29 02:28 | XMS_ITS | Encounter Summary ---
[place] [address] Care Team Providers Care Fisher Weir Name Role Phone Yissel Guerra APRN Primary Care Provider [phone] Encounter Details Date Type Department Care Team (Latest Contact Info) Description 01/27/2023 Travel Social History Tobacco Use Types Packs/Day [...] EDT Office [place] [address] Yamile Jesus MD [facility] [place] [address] 09/09/2024 3:00 PM EST TH Visit (TeleHealth) Sleep Center at [facility] [address] [place] [address] Kaia Becker APRN [facility] [place] [address] documented as of this encounter Visit Diagnoses Not on filedocumented in this encounter Care Teams Fisher Weir Relationship Specialty Start Date End Date Yissel Guerra APRN PCP - General Family Medicine 07/04/22 07/17/23 documented as of this encounter
--- OUTSIDE RECORDS SUMMARY | 2024-05-29 02:28 | XMS_ITS | Encounter Summary ---
Author Organization [facility] [place] [address] Care Team Providers Care Harvest Worker Fruit Name Role Phone Yissel Guerra APRN Primary Care Provider [phone] Reason for Visit * Reason Comments Medication Refill Encounter Details Date Type Department Care Team (Late st Contact Info) Description 03/24/2023 Refill [place] [address] Yamile Jesus MD [facility] [place] [address] Social History Tobacco Use Types Packs/Day Years [...] EDT Office [place] [address] Yamile Jesus MD [facility] [place] [address] 09/09/2024 3:00 PM EST TH Visit (TeleHealth) Sleep Center at [facility] [address] [place] [address] Kaia Becker APRN [facility] [place] [address] documented as of this encounter Visit Diagnoses Not on filedocumented in this encounter Care Teams Harvest Worker Fruit Relationship Specialty Start Date End Date Yissel Guerra APRN PCP - General Family Medicine 07/04/22 07/17/23 documented as of this encounter
--- OUTSIDE RECORDS SUMMARY | 2024-05-29 02:28 | XMS_ITS | Encounter Summary ---
[place] [address] Care Team Providers Care Investment Strategist Name Role Phone Yissel Guerra APRN Primary Care Provider [phone] Encounter Details Date Type Department Care Team (Late st Contact Info) Description 02/03/2023 3:30 PM EDT TH Visit (TeleHealth) [place] [address] Yamile Jesus MD [facility] [address] [facility] [place] [address] Type 2 diabetes mellitus without complication, unspecified whether superintendent container terminal insulin use; Hypertension, unspecified type; Class 3 severe obesity with serious comorbidity and body mass index (BMI) of 50.0 to 59.9 in adult, unspecified obesity type; Mixed anxiety and depressive disorder; Hypothyroidism, unspecified type; CIARA (obstructive sleep apnea) Social History Tobacco Use Types Packs/Day Years Used Date Smoking Tobacco: Never Smokeless Tobacco: Never Sex and Gender Information Value Date Recorded Sex Assigned at Female 08/24/2023 3:35 PM EDT Gender Identity Female 08/24/2023 3:29 PM EDT Sexual Orientation Straight 08/24/2023 3: 35 PM EDT documented as of this encounter Progress Notes * Yamile Jesus MD - 02/03/2023 3:30 PM EDTSummary: 2nd visit with Images from the original note were not included. Patient provided verbal consent prior to initiation of this telemedicine encounter and expressed understanding that the telemedicine visit may be billed similar to a clinic visit, pt was seen while via [x] Video [] phone For this video visit, pt is located at: [facility] Patient Name: Jes Bello Date of : 1960 Age: 62 y.o. Yissel Guerra APRN Thank you for referring Jes Bello to the [facility]. I saw her for a follow-up visit today, 02/05/23. Please see changes to care as documented in the assessment and plan. CHIEF COMPLAINT: F/u for treatment of WHO Class 3 / EOSS Stage 2 Obesity, defined by BMI at presentation, with comorbidities:HTN, DM 2, anxiety/depression, thyroid disease. . This is Visit #2 [facility] visit for this 62 y.o. patient. Initial weight 12/03/22: 284 lbs 02/03/2023, no new weight [facility] Team: RD in the community HPI Lots of medical issues, debilitating fatigue, needs to get female hormones checked. Never been this tired in my life. I do not have anyone to help me, struggling with ADLs. Fired her PCP. On Rybelsus, on 14 mg for about a month. Was eating one big meal a day after fasting 12-14 hours, now eating a 2nd smaller meal. Notes last A1c, 8.2. Does not take finger sticks at home. Went to BS info session, feels diet modifications are too restrictive. PILLARS Stress - only because I cannot do anything, I do not feel like exercising, I cannot go to the store. I am pretty laid back most of the time. It has to be a lot to stress me out. Has a counselor, Bonita. Supposed to be doing EMDR in person but too tired for any of that. Sleep - I don't sleep. Has untreated CIARA, had nasal turbinate surgery, uses special pillows. No napping during the day. I am tired all day but when its time to go to bed, I cannot sleep. Notes everyone on her father's side is obese and cannot sleep. Exercise - I have mobility issues, so fatigued interfering with ADLs. Nutrition - having memory issues. Doing regular meals, not three, smaller. Going from large -> medium pizza. Has MOW for age. I do not eat a lot of vegys, I do not like green stuff. AOM: Currently taking: Rybelsus 14 mg AOM HX: Jardiance (DM 2) - unclear why she stopped COMORBIDITIES ADDRESSED Obesogenic meds: cymbalta? LIFESTYLE INTERVENTIONS [...] needs f/u, refer to sleep med - pt deferring - using special pillows Self-monitoring: Food log Groups of interest: [x]HLP-ES [] HLP-MS [x] HLP-LS []Culinary []ACT []Monthly Lifestyle Classes Discussion 02/05/23:Current pathways reviewed. Pt very upset I was 15 minutes late but accepted my apology. A1c up slightly on Rybeslsus, will try for Mounjaro for glycemic control and weight loss potential. Interested in HLP classes. Continue MD f/u. View : No data to display. VITAL SIGNS: There were no vitals filed [...] found for: GLUCFASTING No results found for: XCBNOMPW30 No results found for: 25OHVITD No results [...] and Thyroid dz Referrals pending: HLP AOM: Rybelsus 14 mg Mounjaro rx today Diagnoses and all orders for this visit: Type 2 diabetes mellitus without complication, unspecified whether superintendent container terminal insulin use - tirzepatide 2.5 mg/0.5 mL Pen Injector; Inject 2.5 mg subcutaneously once a week. Indications: type 2 diabetes mellitus, A1c not responding to semaglutide/Rybelsus 14 mg. Up to 8.2%. Hypertension, unspecified type Class 3 severe obesity with serious comorbidity and body mass index (BMI) of 50.0 to 59.9 in adult,unspecified obesity type Mixed anxiety and depressive disorder Hypothyroidism, unspecified type CIARA (obstructive sleep apnea) No orders of the defined types were placed in this encounter. Return in about 8 weeks (around 03/31/2023) for In person or Zoom, With NADJA guardado. 1 min chart review 30 min [id number] visit 5 min documentation time I spent [...] EDT Office [place] [address] Yamile Jesus MD [facility] [place] [address] 09/09/2024 3:00 PM EST TH Visit (TeleHealth) Sleep Center at [facility] [address] [place] [address] Kaia Becker APRN [facility] [place] [address] documented as of this encounter Visit Diagnoses Diagnosis Type 2 diabetes mellitus without complication, unspecified whether mcc insulin use Hypertension, unspecified type Class 3 severe obesity with serious comorbidity and body mass index (BMI) of 50.0 to 59.9 in adult, unspecified obesity type Mixed anxiety and depressive disorder Dysthymic disorder Hypothyroidism, unspecified type CIARA (obstructive sleep apnea) Obstructive sleep apnea (adult) (pediatric) documented in this encounter Care Teams Investment Strategist Relationship Specialty Start Date End Date Yissel Guerra APRN PCP - General Family Medicine 07/04/22 07/17/23 documented as of this encounter
--- OUTSIDE RECORDS SUMMARY | 2024-05-29 02:28 | XMS_ITS | Encounter Summary ---
Author Organization [facility] Address [address] [place] [address] Care Team Providers Care Gas Station Attendant Name Role Phone Yissel Guerra NP Primary Care Provider [phone] Unknown, Provider Primary Care Provider [phone] Encounter Details Date Type Department Care Team (Late st Contact Info) Description 03/13/2023 Lab Requisition [facility] Pathology & Laboratory Medicine - [facility] [address] [place], [place] [address] Outr Resulting Lab, Provider Social History Tobacco Use Types Packs/Day Years Used Date Smoking Tobacco: Never Assessed Sex and Gender Information Value Date Recorded Sex Assigned at Not on file Gender Identity Not on file Sexual Orientation Not on file documented as of this encounter Plan of Treatment Not on file documented as of this encounter Procedures Procedure Name Priority Date/Time Associated Diagnosis Comments LYME AB Routine 03/13/2023 14:42 EDT HEPATITIS C AB W REFLEX TO HCV RNA BY PCR Routine 03/13/2023 14:42 EDT documented in this encounter Results * HEPATITIS C AB W REFLEX TO HCV RNA BY PCR (03/13/2023 14:42 EDT) Hep C Antibody Negative Negative 03/14/2023 10:07 EDT [facility] Blood VENOUS BLOOD / Unknown 03/13/2023 14:42 EDT 03/13/2023 21:10 EDT Provider Outr Resulting Lab CHEMISTRY & BLOOD GAS ORDERABLES Performing Organization Address City/[facility] Co de Phone Number [facility] [address] [place] [address] * LYME AB (03/13/2023 14:42 EDT) Lyme Ab Negative Negative 03/14/2023 10:25 EDT [facility] Blood VENOUS BLOOD / Unknown 03/13/2023 14:42 EDT 03/13/2023 21:10 EDT Provider Outr Resulting Lab IMMUNOLOGY A ND SEROLOGY ORDERABLES Performing Organization Address [facility] de Phone Number [facility] [address] [place] [address] documented in this encounter Visit Diagnoses Not on filedocumented in this encounter Care Teams Gas Station Attendant Relationship Specialty Start Date End Date Yissel Guerra NP PCP - General 03/23/21 07/22/23 Unknown, Provider, PCP - General 07/23/23 documented as of this encounter
--- OUTSIDE RECORDS SUMMARY | 2024-05-29 02:28 | XMS_ITS | Encounter Summary ---
[place] [address] Care Team Providers Care Gem Expert Name Role Phone Yissel Guerra APRN Primary Care Provider [phone] Reason for Visit * Reason Onset Date Comments Medication Refill 05/01/2023 Encounter Details Date Type Department Care Team (Late st Contact Info) Description 05/01/2023 Telephone [place] [address] Gina Gillespie, certified surgical first assistant Refill Social History Tobacco Use Types Packs/Day Years Used Date Smoking Tobacco: Never Smokeless Tobacco: Never Sex and Gender Information Value Date Recorded Sex Assigned at Female 08/24/2023 3:35 PM EDT Gender Identity Female 08/24/2023 3:29 PM EDT Sexual Orientation Straight 08/24/2023 3: 35 PM EDT documented as of this encounter Miscellaneous Notes * Telephone Encounter - Gina Gillespie, RN - 05/01/2023 9:50 AM EDT Called pt to clarify her prescription dosage. On 04/14 Dr. Jesus sent in a prescription for Mounjaro 10 mg. I wanted to make sure that she was getting the correct dosage. She stated that they talked about it at her apt and Dr. Jesus asked if she could send it at that apt. Confirmed that she just ask her pharmacy to get it ready for her. Will be starting Mounjaro 10 mg on . Pt also asked about how to look up her credentials. For her knowledge. She couldn't find her. Is there a place to see where her license? I gave her the website for license look up. Pt will ask for additional assistance if needed. documented in this encounter Plan of Treatment Upcoming Encounters Date Type Department Care Team (Late st Contact Info) Description 07/04/2024 12:00 PM EDT Office [place] [address] Yamile Jesus MD [facility] [place] [place] [address] 09/09/2024 3:00 PM EST TH Visit (TeleHealth) Sleep Center at [place] [address] [place] [address] Kaia Becker APRN [facility] [place] [address] documented as of this encounter Visit Diagnoses Not on filedocumented in this encounter Care Teams Gem Expert Relationship Specialty Start Date End Date Yissel Guerra APRN PCP - General Family Medicine 07/04/22 07/17/23 documented as of this encounter
--- OUTSIDE RECORDS SUMMARY | 2024-05-29 02:28 | XMS_ITS | Encounter Summary ---
Author Organization [facility] [place] [address] Care Team Providers Care Trial Mgr Name Role Phone Hemanth Walton DO Primary Care Provider [phone] Reason for Visit * Reason Comments Low Back Pain Left Hip Pain * Consultation (Routine) - Closed Specialty Diagnoses / Procedures Referred By Darvin segoiva Referred To Contact Orthopaedics Diagnoses Lumbar stenosis/ MRI 12/2017 @ [place]/ XR prior Babatunde Mattson MD [facility] [place] [address] Loc Stephenson MD [facility] [place] [address] Referral ID Status Reason Start Date Expiration Date V isits Requested Visits Authorized [id number] Closed Consult, Test & Treat 06/06/2018 06/06/2019 1 1 Encounter Details Date Type Department Care Team (Latest Contact Info) Description 07/04/2018 1:00 PM EDT Office [place] [address] Loc Stephenson MD [facility] [place] [address] Spondylolisthesis at L4-L5 level; Lumbar stenosis with neurogenic claudication Social History Tobacco Use Types Packs/Day Years [...] - Inhaled Oxygen Concentration - - Weight 108.4 kg (239 lb) 07/04/2018 1:03 PM EDT Height 161.3 cm (5' 3.5) 07/04/2018 1:03 PM EDT Body Mass Index 41.67 07/04/2018 1:03 PM EDT documented in this encounter Progress Notes * Loc Stephenson MD - 07/04/2018 1:00 PM EDT Images from the original note were not included. Spine Center @ [facility] Loc Stephenson MD, MS. Director Babatunde Mattson MD [facility] [place] [address] Hemanth Walton, DO [address] [facility] [address] Dear Colleagues, I had the pleasure of seeing this patient at the [facility] for surgical evaluation. Chief complaint back pain bilateral buttock pain posterior thigh symptoms. Nothing distal to the knee. Diagnosis: 1. Grade 2 spondylolisthesis L4-5 with motion on x-ray. 2. Severe stenosis L4-5 3. Back pain bilateral buttock pain posterior thigh pain to the knee difficulty bending forward. Prognostic factors BMI 41.67. Non-smoker. Diabetic. No narcotics. No anticoagulation. Prior treatments: Injections ??2 which helped. Physical therapy massage Celebrex Tylenol tramadol. No prior spine surgery. Imaging: MRI from 12/22/2017 shows severe stenosis at L4-5 with a grade 2 spinal listhesis of L4-5. X-rays from July 04 and November 02, 2017 shows similar findings with motion on the flexion-extension views. Physical examination: Alert and oriented female affect is normal limits. Able to walk across the room without difficulty. She can get up on her toes and heels with some difficulty. Hip flexors quads anterior tib gastroc and EHL are all 5 out of 5. No pain with internal/external rotation of her hips. Abduction as well as adduction is intact. Fine hand motor functions intact. No numbness tingling in the hands. Negative Spurling's. Distal pulses intact. Summary and plan: The patient is interested in surgical intervention. In my mind I would be a posterior decompression instrumented fusion possible T LIF autograft and allograft. The goal would be to decompress her nerve roots and stabilize that level. However given her preoperative symptoms is unclear whether this whether this will significant help her back pain. It will certainly help her buttock and leg pain and increase her walking tolerance. I talked at length that it will not's solve all her symptoms. Her goal is to increase her activity possibly play some tennis or hike. She has not been these types of activities for 4-5 years. The risk of spinal fluid leak infection nonunion its rotation problems persistent symptoms were discussed with her. If she does wish to proceed she will needto come back in for another visit to make sure that we are on the same page. In the interim I thinkcontinued slow weight loss would be beneficial and continue physical therapy activities. She is supportive of this plan. I did talk specifically about the increased risk of infection given her diabetes as well as her BMI. More than 50% of more than 40 minutes were utilized in counseling around the findings on the MRI her current symptoms and the possibility of surgical intervention as well as risks and benefits of theintervention. Was a pleasure meeting . Thank you for the referral. Sincerely, Loc Stephenson MD MS Logistics Clerk - Orthopedic Spine Surgery / Spine Center Balance Weigher - Department of Orthopedic Surgery / [employer] Medical Massage Therapist - [facility] 07/04/2018 Spine Center Response Trends Patient-reported scores: myD-H Spine Questionnaire responses 07/04/2018 Oswestry Disability Index (Range: 0-100) 38 (Moderate disability) PROMIS-10 Physical Health Score 37.4 PROMIS-10 Mental Health Score 36.3 documented in this encounter Plan of Treatment Upcoming Encounters Date Type Department Care Team (Late st Contact Info) Description 07/04/2024 12:00 PM EDT Office Visit [place] [phone] Yamile Jesus MD [facility] [address] [place] [address] 09/09/2024 3:00 PM EST TH Visit (TeleHealth) Sleep Center at [address] [place] [address] Kaia Becker APRN [facility] [place] [address] documented as of this encounter Visit Diagnoses Diagnosis Spondylolisthesis at L4-L5 level Lumbar stenosis with neurogenic claudication Spinal stenosis, lumbar region, with neurogenic claudication documented in this encounter Care Teams Trial Mgr Relationship Specialty Start Date End Date Hemanth Walton DO [address] [place] [address] PCP - General Family Medicine 07/04/18 07/03/22 documented as of this encounter
--- OUTSIDE RECORDS SUMMARY | 2024-05-29 02:28 | XMS_ITS | Referral Summary ---
Author Organization [facility] Address [address] [place] [address] Care Team Providers Care Mushroom Laborer Name Role Phone Unknown, Provider Primary Care Provider Allergies No known active allergies Medications Medication Sig Dispensed Refills Start Date End Date Status metformin (GLUCOPHAGE) 500 mg tablet Take 500 mg by mouth daily. 06/07/2011 Active modafinil (PROVIGIL) 200 mg tablet Take 200 mg by mouth 2 times daily. 06/07/2011 Active meloxicam (MOBIC) 15 mg tablet Take 15 mg by mouth daily. Active levothyroxine (SYNTHROID) 175 mcg tablet Take 175 mcg by mouth daily. Active buPROPion (WELLBUTRIN XL) 300 mg XL tablet Take 300 mg by mouth daily. Active metoprolol (LOPRESSOR) 25 mg tablet Take 25 mg by mouth daily. 06/07/2011 Active clonAZEPAM (KLONOPIN) 1 mg tablet Take 1 mg by mouth 2 times daily. 06/07/2011 Active topiramate (TOPAMAX) 100 mg tablet Take 200 mg by mouth 2 times daily. Active esomeprazole (NEXIUM) 20 mg capsule Take 40 mg by mouth 2 times daily. 06/07/2011 Active montelukast (SINGULAIR) 10 mg tablet Take 10 mg by mouth daily. Active duloxetine (CYMBALTA) 60 mg capsule Take 60 mg by mouth 2 times daily. 06/07/2011 Active BIOTIN ORAL Take by mouth. Active HYALURONATE SODIUM (HYALURONIC ACID ORAL) Take by mouth. Active SOY ISOFLAVONE (SOY ORAL) Take by mouth. Active PRASTERONE, DHEA, (DHEA ORAL) Take by mouth. Active METHYLSULFONYLMETHANE ORAL Take by mouth. Active VITAMIN B COMPLEX (B COMPLEX 50 ORAL) Take by mouth. Acti ve cyclobenzaprine (FLEXERIL) 10 mg tablet Take 10 mg by mouth 3 times daily as needed. Active PHYTONADIONE (VITAMIN K ORAL) Take by mouth. Active GINKGO BILOBA (GINKOBA ORAL) Take by mouth. Active UNABLE TO FIND 20 Drops daily. Med Name: cellfood Active Multivitamins with Minerals tablet Take 1 Tab by mouth daily Active ASCORBIC ACID/VITAMIN E (CRANBERRY CONCENTRATE ORAL) Take by mouth Acti ve Active Problems No known active problems Social History Tobacco Use Types Packs/Day Years Used Date Smoking Tobacco: Never Alcohol Use Standard Drinks/Week Comments No 0 (1 standard drink = 0.6 oz pur e alcohol) Sex and Gender Information Value Date Recorded Sex Assigned at Not on file Gender Identity Not on file Sexual Orientation Not on file Last Filed Vital Signs Vital Sign Reading Time Taken Comments Blood Pressure 139/56 03/05/2015 1540 EDT Pulse 83 03/05/2015 1540 EDT Temperature 36.6 ??C (97.8 ??F) 03/05/2015 1504 EDT Respiratory Rate 18 03/05/2015 1540 EDT Oxygen Saturation - - Inhaled Oxygen Concentration - - Weight 133.8 kg (295 lb) 10/08/2014 1507 EST Height 162.6 cm (5' 4) 03/05/2015 1504 EDT Body Mass Index 50.64 10/08/2014 1507 EST Plan of Treatment Not on file Procedures Procedure Name Priority Date/Time Associated Diagnosis Comments HEPATITIS C AB W REFLEX TO HCV RNA BY PCR Routine 03/13/2023 14:42 EDT from Last 3 Months or Most Recently Relevant to Health Maintenance Results * HEPATITIS C AB W REFLEX TO HCV RNA BY PCR (03/13/2023 14:42 EDT) Hep C Antibody Negative Negative 03/14/2023 10:07 EDT [facility] Blood VENOUS BLOOD / Unknown 03/13/2023 14:42 EDT 03/13/2023 21:10 EDT Provider Outr Resulting Lab CHEMISTRY & BLOOD GAS ORDERABLES [facility] [address] [place] [address] from Last 3 Months or Most Recently Relevant to Health Maintenance Care Teams Mushroom Laborer Relationship Specialty Start Date End Date Unknown, Provider, PCP - General 07/23/23
--- OUTSIDE RECORDS SUMMARY | 2024-05-29 02:28 | XMS_ITS | Encounter Summary ---
[place] [address] Care Team Providers Care Offset Assistant Press Operator Name Role Phone Yissel Guerra APRN Primary Care Provider [phone] Reason for Visit * Reason Onset Date Comments Medication Problem 03/03/2023 Encounter Details Date Type Department Care Team (Late st Contact Info) Description 03/03/2023 Telephone [facility] [place] [phone] Nany Dobson Medication Problem Social History Tobacco [...] Telephone Encounter - Gina Gillespie RN - 03/07/2023 7:48 AM EDT Called to answer patient questions regarding medication. Left message for her to return call. * Telephone Encounter - Nany Dobson - 03/03/2023 4:17 PM EDT Message: Jes called with concerns on medication instructions she is asking to speak with a nurse please. Ask caller their first and last name and relationship to the patient: Jes Bello Best time to call back: any Ok to leave a message: y Ok to send [facility] message: y Offered Appointment: n documented in this encounter Plan of Treatment Upcoming Encounters Date Type Department Care Team (Late st Contact Info) Description 07/04/2024 12:00 PM EDT Office Visit [facility] [place] [address] Yamile Jesus MD [facility] [place] [address] 09/09/2024 3:00 PM EST TH Visit (TeleHealth) Sleep Center at [place] [address] [place] [id number] Kaia Becker APRN [facility] [place] [address] documented as of this encounter Visit Diagnoses Not on filedocumented in this encounter Care Teams Offset Assistant Press Operator Relationship Specialty Start Date End Date Yissel Guerra APRN PCP - General Family Medicine 07/04/22 07/17/23 documented as of this encounter
--- OUTSIDE RECORDS SUMMARY | 2024-05-29 02:28 | XMS_ITS | Encounter Summary ---
[place] [address] Care Team Providers Care Well Servicing Rig Operator Name Role Phone Yissel Guerra APRN Primary Care Provider Encounter Details Date Type Department Care Team (Late st Contact Info) Description 04/06/2023 12:00 PM EDT TH Visit (TeleHealth) [place] [address] Social History Tobacco Use Types Packs/Day Years [...] EDT Office Visit [place] [phone] Yamile Jesus MD [facility] [place] [address] 09/09/2024 3:00 PM EST TH Visit (TeleHealth) Sleep Center at [facility] [address] [place] [address] Kaia Becker APRN [facility] [place] [address] documented as of this encounter Goals Goal [...] and frozen broccoli) with sharp cheddar or ukrainian cheese (if you want) with piece of fruit (20-25 grams of protein) Option 2: plain yogurt, romanian has more protein with small amount of [...] Option 2: tuna salad with 2 tbsp romanian plain yogurt with 2 tbsp huff over spinach or lettuce If needed, Snack: All 10 grams of protein Option 1: hummus and raw vegetable and crackers (wheat thin) Option 2: cottage cheese (3/4 cup) with chives Option 3: grapes with nuts Other Nutrition Goals 60 grams of protein per day 20-25 grams of fiber per day Huff - 1 tbsp romanian plain yogurt with 1 tbsp huff Limit [...] in the hot weather Call Sleep medicine: [phone] documented as of this encounter Visit Diagnoses Not on filedocumented in this encounter Care Teams Well Servicing Rig Operator Relationship Specialty Start Date End Date Yissel Guerra APRN PCP - General Family Medicine 07/04/22 07/17/23 documented as of this encounter
--- OUTSIDE RECORDS SUMMARY | 2024-05-29 02:28 | XMS_ITS | Encounter Summary ---
Author Organization [facility] Address [address] [place] [address] Care Team Providers Care Grounds Foreman Name Role Phone Ramona Meyers MARIANNE Primary Care Provider + Reason for Visit * Reason Comments Back Pain left sided low back pain Leg Pain left leg pain Encounter Details Date Type Department Care Team (Latest Contact Info) Description 03/05/2015 15:00 EDT Office Visit [facility] Interventional Pain [address] [place] [address] Johana Gonzalez MD Facet arthropathy of spine (Primary Dx); Spondylolisthesis; Low back pain; Lumbar spondylosis Social History Tobacco Use Types Packs/Day Years Used Date Smoking Tobacco: Never Alcohol Use Standard Drinks/Week Comments No 0 (1 standard drink = 0.6 oz pur e alcohol) Sex and Gender Information Value Date Recorded Sex Assigned at Not on file Gender Identity Not on file Sexual Orientation Not on file documented as of this encounter Last Filed Vital Signs Vital Sign Reading Time Taken Comments Blood Pressure 139/56 03/05/2015 1540 EDT Pulse 83 03/05/2015 1540 EDT Temperature 36.6 ??C (97.8 ??F) 03/05/2015 1504 EDT Respiratory Rate 18 03/05/2015 1540 EDT Oxygen Saturation - - Inhaled Oxygen Concentration - - Weight - - Height 162.6 cm (5' 4) 03/05/2015 1504 EDT Body Mass Index - - documented in this encounter Patient Instructions * Patient Instructions* Florence Osuna RN - 03/05/2015 15:42 EDT [facility] [address] [address] Patient Instructions You have had your left lumbar Facet Steroid Injection. The purpose of this procedure has been to place medication which may help relieve your pain. Steroid may be used to decrease the swelling and nerve irritation which may be causing your pain. The following information should help you over the next few days regarding what you may expect. Today please stay busy/active doing things that would normally cause you pain. Keep track of your hours of relief and your percentage of relief today (0 to 100 , 0 = no relief and 100% = total relief). Separate the pressure and tightness that we caused you from your regular pain and see what your relief is. Call us back tomorrow with this information. Procedure end time:___3:40 Pain relief start time 3:40 Returned to baseline pain Hours of relief Percentage of relief 0-100 (0 = no relief, 100 = total relief) ??? DO NOT drive a car for the remainder of the day. ??? If you feel sore where the needle(s) entered for the block or develop a flare-up of pain over the next few days, please use ice on the area. You may leave the ice on for up to 20 minutes at a time. Do not use heat, as this may cause swelling. ??? As long as your primary doctor has indicated no restrictions, you may take a mild pain medicine, such as acetaminophen (Tylenol), ibuprofen (Advil, Nuprin, Motrin IB, etc.) or aspirin, if needed. ??? The steroid injection usually takes a few days to become effective. On average, you may notice some relief in 3 -5 days. However, it may take up to 10 - 14 days to know whether the injection was helpful. ??? If the block causes numbness/weakness, it should wear off within a few hours. ??? If the area that the needle(s) were inserted becomes hot, red, swollen, or increasingly tender,or if you develop a fever (100.5 or greater) or chills along with these symptoms, please call our office immediately. ??? If you develop increasingly severe neck/back pain, continued numbness or weakness of the arms/legs or changes in your bladder or bowel functions, please call our office immediately. Instructions for follow-up If you have any questions about your block, please call Patient Education Topic: Method: Handout and Verbal Taught to: Patient Barriers: None Outcomes: independent and verbalized understanding Signature: Florence Osuna RN documented in this encounter Progress Notes * Johana Gonzalez - 03/06/2015 0946 EDT Patient Name: Jes Bello : 1960 Date of Service: 12/03/2014 Missileman: Johana Gonzalez MD Senior Adults Director: None Interval History: Ms. Belol presents for continued evaluation and treatment of her chronic low back pain. The details of the current complaint are thoroughly described in the consultation notes from their last encounter with Ray Andersen on 10/30/14 including pain onset, location, course, workup, therapeutic attempts, and associated functional limitations. There are no recent onset of new associated symptoms such as changes in strength, sensation, or bladder control. The patient does report the new preponderance of left sided back and buttock pain as well as sharp left thigh pain and the sensation of things slipping. The pain comes on if she moves just right or sometimes for no reason at all. She has not found a consistent position of comfort. Currently her pain is an 8/10 in severity. Injection History: 12/03/14: right L4-5, L5-S1 facet injections- left side aborted due to pt discomfort. Patient reports 100% relief of her right sided back pain that has persisted to date. 10/27/11: Left l5-S1 TFESI-- patient is unable to fully recall results 08/18/11: Left L5-S1 TFESI-- 1 week of near complete relief, then 30% after that persistent for a period of months. 07/01/11: Bilateral L4-5, L5-S1 facet injections-- 100% relief starting 5 days after injection of back pain, continued to have 85-90% relief for several months, no improvement of leg symptoms No Known Allergies ROS: CONSTITUTIONAL: Patient does not report fevers, nausea, vomiting. NEURO/EYES: Patient does not report headaches, dizziness, or visual changes. HEME: Patient does not report any known coagulopathies. PULM/CARDIAC: Patient does not report shortness of breath or chest pain. GI/: Patient does not report bowel or bladder incontinence. Physical Examination: Vital signs: BP 135/67 Pulse 82 Temp(Src) 37.2 ??C (98.9 ??F) (Tympanic) Resp 18 Ht 162.6 cm (64) GENERAL: Patient is an otherwise pleasant female. Patient is alert and oriented x 3. NAD. Patient is a somewhat poor historian with a stream of individual pain complaints that she attributes to pathology which she believes she has been told about by other providers. This includes her back popping out and crushing a nerve. Rises from a seated position without difficulty. SKIN: WNL. Warm and dry. Area of excoriation over right buttock and cleft. No signs of infection in the lumbosacral region. NEURO: Motor strength is 5/5 throughout all motor groups in bilateral lower extremities. Sensation is intact and symmetrical to light touch throughout bilateral lower extremities. MUSCULOSKELETAL: ROM was full with flexion, extension and lateral rotation. Weakly positive (and inconsistently positive) SLR raise with pain radiating to thigh on left. Mildly tender to palpation of over left side low back and sacroiliac joint line. PULM: Non labored breathing. Assessment:Patient is a 54 y.o. year old female with a chronic pain syndrome and a primary complaint of left low back pain and some intermittent radiating left thigh pain. Excellent relief with most recent right sided facet injections with continued near complete resolution of her right sided back pain. Associated diagnoses: Encounter Diagnoses Name Primary? Facet arthropathy of spine Yes ??? Spondylolisthesis ??? Low back pain ??? Lumbar spondylosis Patient with a large number of questions and apparently poor understanding of the likely etiology of her pain despite nearly a 20 minute conversation with multiple attempts to explain by this examiner. Ms. Bello has been treated in the past for radiating left leg pain in although she does not recall this being the case. Plan: Proceed with diagnostic and therapeutic facet joint injections at left L4-L5 and L5-S1 given the excellent response to right sided lumbar facet injections in November. It is unclear whether this willaffect the intermittent lateral and anterior thigh pain in her left leg. Follow up: within 24 hrs by telephone to report results of diagnostic injection. If her thigh pain is unresolved she should return for a follow-up visit to discuss and she seems to have substantial difficulty following the explanation of her underlying pathology and treatment options. Procedure: The patient gave informed written consent to proceed with this procedure following a detailed discussion of the risks and benefits associated with lumbar facet joint injection. The patient was then placed in the prone position, the skin over the lumbosacral area was prepped with chlorhexadine, and the site was draped with sterile towels. Strict sterile technique was maintained throughout the procedure. A cabezas moment was performed with full staff present to identify the patient, verify the procedure being performed, and review allergies. Flouroscopy was used to identify the lumbar anatomy and align the facet joints. The skin and subcutaneous tissue over the left L4-L5 and L5-S1 facet joints was anesthetized with 2% lidocaine. A 22 guage 5.0 inch spinal needle was inserted under fluoroscopic guidance using coaxial technique into each of the aforementioned facet joints. After negative aspiration, each joint was injected with 0.5 mls 0.5% Bupivacaine and 20 mg Depo-Medrol. There were no paresthesias during needle placement and aspiration was negative at all times. The patient tolerated the procedure well, there were no apparent complications, and he was discharged in stable condition. Written and verbal discharge instructions were reviewed with the patient prior to discharge. * Dai Stephenson - 03/05/2015 9335 EDT [facility] Rooming Note Does patient have a Payroll Associate? yes Is patient NPO? (Solids since midnight & liquids for 4 hrs) na Blood Thinners: Is patient on Blood Thinners? no If yes, taking? If stopped, who authorized stopping? Related comments: Infections: Any recent infections, fever of illnesses? no If on antibiotics, is it 7-10 days past the date of completion of antibiotics? no : (for females of child-bearing age) Is there a chance current ? no Other: documented in this encounter Plan of Treatment Not on file documented as of this encounter Visit Diagnoses Diagnosis Facet arthropathy of spine- Primary Spondylosis of unspecified site without mention of myelopathy Spondylolisthesis Congenital spondylolisthesis Low back pain Lumbago Lumbar spondylosis Lumbosacral spondylosis without myelopathy documented in this encounter Administered Medications Inactive Administered Medications - up to 3 most recent administrations Medication Order MAR Action Action Date Dose Rate Site bupivacaine (PF) (MARCAINE) 0.5 % (5 mg/mL) injection 5 mg 5 mg (1 mL), intra-articular, NOW X1, 1 dose, On Ibis 03/05/15 at 1600, Routine Given by Other 03/05/2015 15:37 EDT 5 mg methylPREDNISolone ACETATE (DEPO-MEDROL) injection 40 mg 40 mg, intra-articular, NOW X1, 1 dose, On Ibis 03/05/15 at 1600, Routine Given by Other 03/05/2015 15:37 EDT 40 mg documented in this encounter Care Teams Grounds Foreman Relationship Specialty Start Date End Date Ramona Meyers FNP PCP - General 10/08/14 03/22/21 documented as of this encounter
--- OUTSIDE RECORDS SUMMARY | 2024-05-29 02:28 | XMS_ITS | Encounter Summary ---
Author Organization [facility] [place] [address] [place] [address] Care Team Providers Care Referral Manager Name Role Phone Yissel Guerra APRN Primary Care Provider [phone] Reason for Referral * Consultation (Routine) - Closed Specialty Diagnoses / Procedures Referred By Darvin segovia Referred To Contact Weight and Wellness Diagnoses Obesity, unspecified classification, unspecified obesity type, unspecified whether serious comorbidity present Yissel Guerra APRN [address] [place] [address] [facility] [address] [place] [address] Referral ID Status Reason Start Date Expiration Date V isits Requested Visits Authorized [id number] Closed Consult, Test & Treat PCP Updated and/or Approved 07/04/2022 07/04/2023 1 1 Encounter Details Date Type Department Care Team (Latest Contact Info) Description 07/04/2022 Transcribe Orders eDH Incoming Referrals [phone] Yissel Guerra APRN [address] [place] [address] Obesity, unspecified classification, unspecified obesity type, unspecified whether serious comorbidity present Social History Tobacco Use Types Packs/Day Years [...] EDT Office Visit [facility] [place] [address] Yamile Jesus MD [facility] [address] 09/09/2024 3:00 PM EST TH Visit (TeleHealth) Sleep Center at [facility] [address] [place] [address] Kaia Becker APRN [facility] [place] [address] Scheduled Referrals Name Type Priority Associated Diagnoses Orde r Schedule Referral to [facility] Center Outpatient Referral Routine Obesity, unspecified classification, unspecified obesity type, unspecified whether serious comorbidity present Ordered: 07/04/2022 documented as of this encounter Visit Diagnoses Diagnosis Obesity, unspecified classification, unspecified obesity type, unspecified whether serious comorbidity present documented in this encounter Care Teams Referral Manager Relationship Specialty Start Date End Date Yissel Guerra APRN PCP - General Family Medicine 07/04/22 07/17/23 documented as of this encounter
--- OUTSIDE RECORDS SUMMARY | 2024-05-29 02:28 | XMS_ITS | Encounter Summary ---
Author Organization [facility] Address [address] [place] [address] Care Team Providers Care Clinical Office Technician Name Role Phone Ramona Meyers MARIANNE Primary Care Provider + Reason for Visit * Reason Onset Date Comments Results 03/06/2015 Encounter Details Date Type Department Care Team (Late st Contact Info) Description 03/06/2015 Telephone [facility] Interventional Pain [address] [place] [address] Johana Gonzalez MD Results Social History Tobacco Use Types Packs/Day Years Used Date Smoking Tobacco: Never Alcohol Use Standard Drinks/Week Comments No 0 (1 standard drink = 0.6 oz pur e alcohol) Sex and Gender Information Value Date Recorded Sex Assigned at Not on file Gender Identity Not on file Sexual Orientation Not on file documented as of this encounter Miscellaneous Notes * Telephone Encounter - Gina Farooq RN - 03/06/2015 1306 EDT Date and type of procedure: 03/05 facet joint injections at left L4-L5 and L5-S1 Provider: Carlos/Rosio Hours of relief: 20+ % of relief: 100% Next appointment: If her thigh pain is unresolved she should return for a follow-up visit to discuss and she seems to have substantial difficulty following the explanation of her underlying pathologyand treatment options Called pt. Back to speak to The thigh pain per the plan. She had trouble speaking to her upper thigh, but she thinks it was better as there is no pain rightnow. Pt. Is adamant that Dr. Lester's name is NOT on her chart. Dr. Gonzalez aware, will fix the note- Dr. Lester did NOT do the injection, just did the note. Pt. Did not want Dr. LESTER's name on her chart as it is confusing. Dr. Gonzalez to take care of that. * Telephone Encounter - Miriam James - 03/06/2015 1151 EDT 100 % RELIEF 20+ HOURS SOME NUMBNESS AND TINGLING IN LEFT LEG, LAST NIGHT PINS AND NEEDLES, MINNIMAL SOME SLIPPAGE AT BACK documented in this encounter Plan of Treatment Not on file documented as of this encounter Visit Diagnoses Not on filedocumented in this encounter Care Teams Clinical Office Technician Relationship Specialty Start Date End Date Ramona Meyers FNP PCP - General 10/08/14 03/22/21 documented as of this encounter
--- OUTSIDE RECORDS SUMMARY | 2024-05-29 02:28 | XMS_ITS | Encounter Summary ---
[place] [address] Care Team Providers Care Mount Loader Name Role Phone Yissel Guerra APRN Primary Care Provider [phone] Reason for Visit * Reason Onset Date Comments Questions 12/20/2022 Encounter Details Date Type Department Care Team (Late Contact Info) Description 12/20/2022 Telephone [place] [address] Nany Dobson Questions Social History Tobacco Use Types Packs/Day Years Used Date Smoking Tobacco: Never Smokeless Tobacco: Never Sex and Gender Information Value Date Recorded Sex Assigned at Female 08/24/2023 3:35 PM EDT Gender Identity Female 08/24/2023 3:29 PM EDT Sexual Orientation Straight 08/24/2023 3: 35 PM EDT documented as of this encounter Miscellaneous Notes * Telephone Encounter - Nany Dobson - 12/20/2022 11:20 AM EST Pharmacy or caller: Jes Bello (if goes to please call right back) Medication: semaglutide (Rybelsus) 7 mg Tablet Message: Patient is asking if the medication wears off as she is becoming more hungary befroe bed between 7pm and 10pm. Jes is currently been taking 7 mg for about a week and asking if she needs to go up to 14 mg, please call with update. Did you contact your pharmacy?: x documented in this encounter Plan of Treatment Upcoming Encounters Date Type Department Care Team (Late Contact Info) Description 07/04/2024 12:00 PM EDT Office Visit [place] [address] Yamile Jesus MD [facility] [address] [facility] [address] 09/09/2024 3:00 PM EST TH Visit (TeleHealth) Sleep Center at [place] [address] [place] [address] Kaia Becker APRN [facility] [place] [address] documented as of this encounter Visit Diagnoses Not on filedocumented in this encounter Care Teams Mount Loader Relationship Specialty Start Date End Date Yissel Guerra APRN PCP - General Family Medicine 07/04/22 07/17/23 documented as of this encounter
--- OUTSIDE RECORDS SUMMARY | 2024-05-29 02:28 | XMS_ITS | Encounter Summary ---
[place] [address] Care Team Providers Care Diesel Lube Tech Name Role Phone Yissel Guerra APRN Primary Care Provider Encounter Details Date Type Department Care Team (Late st Contact Info) Description 05/22/2023 5:30 PM EDT Notes Only [place] [address] Social History Tobacco Use Types Packs/Day Years [...] EDT Office Visit [place] [address] Yamile Jesus MD [facility] [place] [address] 09/09/2024 3:00 PM EST TH Visit (TeleHealth) Sleep Center at [facility] [address] [place] [address] Kaia Becker APRN [facility] [place] [address] documented as of this encounter Visit Diagnoses Not on filedocumented in this encounter Care Teams Diesel Lube Tech Relationship Specialty Start Date End Date Yissel Guerra APRN PCP - General Family Medicine 07/04/22 07/17/23 documented as of this encounter
--- OUTSIDE RECORDS SUMMARY | 2024-05-29 02:28 | XMS_ITS | Encounter Summary ---
Author Organization [facility]ly [facility] [place] [address] Care Team Providers Care Busboy Name Role Phone Yissel Guerra APRN Primary Care Provider [phone] Encounter Details Date Type Department Care Team (Late st Contact Info) Description 05/29/2023 5:30 PM EDT Notes Only Weight [place] [address] Social History Tobacco Use Types Packs/Day Years Used Date Smoking Tobacco: Never Smokeless Tobacco: Never Sex and Gender Information Value Date Recorded Sex Assigned at Female 08/24/2023 3:35 PM EDT Gender Identity Female 08/24/2023 3:29 PM EDT Sexual Orientation Straight 08/24/2023 3: 35 PM EDT documented as of this encounter Progress Notes * Laci Carolina - 05/29/2023 5:30 PM EDT Patient attended [facility] 2 documented in this encounter Plan of Treatment Upcoming Encounters Date Type Department Care Team (Late st Contact Info) Description 07/04/2024 12:00 PM EDT Office Visit Weight [place] [address] Yamile Jesus MD [facility] [address] [facility] [address] 09/09/2024 3:00 PM EST TH Visit (TeleHealth) Sleep Center at [address] [place] [address] Kaia Becker APRN [facility] [place] [address] documented as of this encounter Visit Diagnoses Not on filedocumented in this encounter Care Teams Busboy Relationship Specialty Start Date End Date Yissel Guerra APRN PCP - General Family Medicine 07/04/22 07/17/23 documented as of this encounter
--- OUTSIDE RECORDS SUMMARY | 2024-05-29 02:28 | XMS_ITS | Encounter Summary ---
Author Organization [facility] Address [address] [place] [address] Care Team Providers Care Sales Contract Administrator Name Role Phone Yissel Guerra NP Primary Care Provider [phone] Unknown, Provider Primary Care Provider [phone] Encounter Details Date Type Department Care Team (Late st Contact Info) Description 07/06/2023 Lab Requisition [facility] Pathology & Laboratory Medicine - [facility] [address], [place] [address] Erendira Ling MD [address] [place] [address],[address] [place], [place] [address] Encounter for other general examination Social History Tobacco Use Types Packs/Day Years [...] Procedure Name Priority Date/Time Associated Diagnosis Comments SURGICAL PATHOLOGY Today 07/06/2023 13 :30 EDT Encounter for other general examination documented in this encounter Results * SURGICAL PATHOLOGY (07/06/2023 13:30 EDT) Note to Patient The following pathology results have been interpreted by your pathologist and may be available to you before your health provider has had the opportunity to review them. Please allow time for your provider to receive these results and explore management options, if applicable. 07/11/2023 9:24 T [facility] Final Diagnosis A. ENDOMETRIUM, BIOPSY: - Fragments of benign endometrial polyp(s) - Background of inactive endometrium 07/11/2023 9:24 T [facility] Attestation By the signature below, the attending physician certifies that they have 1) personally conducted a gross and/or microscopic examination of the described specimen(s), and/or personally interpreted the results of laboratory testing of the described specimen(s), and 2) personally rendered or confirmed the above diagnosis. 07/11/2023 9:24 [facility] at 0924 Clinical History Thickened endometrial stripe 07/11/2023 9:24 [facility] Gross Description A. Received in formalin labelled with proper patient identification (initials V, D) and endometrium is an aggregate of a minimal amount of castro rubbery tissue fragments and a moderate amount of admixed opaque castro-white viscous mucus (2.0 x 1.5 x 0.5 cm). Entirely submitted in A1. Mary Langston 07/07/2023 10:27 07/11/2023 9:24 T [facility] Performing Lab [facility] 07/11/2023 9:24 T [facility] Scanned Images 07/11/2023 9:24 [facility] Tissue ENDOMETRIAL STRUCTURE / Unknown 07/06/2023 13:30 EDT 07/06/2023 23:04 EDT Erendira Ling MD PATHOLOGY ORDERABLES [facility] [address] [place] [address] documented in this encounter Visit Diagnoses Diagnosis Encounter for other general examination documented in this encounter Care Teams Sales Contract Administrator Relationship Specialty Start Date End Date Yissel Guerra NP PCP - General 03/23/21 07/22/23 Unknown, Provider, PCP - General 07/23/23 documented as of this encounter
--- OUTSIDE RECORDS SUMMARY | 2024-05-29 02:28 | XMS_ITS | Encounter Summary ---
Author Organization [facility] Address [facility] [place] [address] Care Team Providers Care Textile Converter Name Role Phone Hemanth Walton Primary Care Provider [phone] Encounter Details Date Type Department Care Team (Latest Contact Info) Description 07/04/2018 12:15 PM EDT - 07/04/2018 11:59 PM EDT Hospital Encounter XRay at [address] [place] [address] Babatunde Mattson MD [facility] [place] [address] Spinal stenosis at L4-L5 level Discharge Disposition: Home Social History Tobacco Use Types Packs/Day Years Used Date Smoking Tobacco: Never Smokeless Tobacco: Never Sex and Gender Information Value Date Recorded Sex Assigned at Female 08/24/2023 3:35 PM EDT Gender Identity Female 08/24/2023 3:29 PM EDT Sexual Orientation Straight 08/24/2023 3: 35 PM EDT documented as of this encounter Medications at Time of Discharge Medication Sig Dispensed Refills Start Date End Date lisinopril (PRINIVIL;ZESTRIL) 20 mg Tablet Take 20 mg by mouth daily. montelukast (SINGULAIR) 10 mg Tablet Take 10 mg by mouth nightly. acetaminophen (TYLENOL) 500 mg Tablet Take 1,000 mg by mouth every 6 hours as needed for Pain. 06/07/2023 busPIRone (BUSPAR) 10 mg Tablet Take 20 mg by mouth. 2 in the am and 1 and dinner 06/07/2023 aspirin 81 mg Tablet, Chewable Take 81 mg by mouth daily. 06/07/2023 FLUoxetine (PROZAC) 40 mg Capsule Take 40 mg by mouth daily. 06/07/2023 levothyroxine (SYNTHROID) 150 mcg Tablet Take 150 mcg by mouth daily. 06/07/2023 lurasidone (Latuda) 40 mg tablet Take 40 mg by mouth daily. 06/07/2023 metFORMIN (GLUCOPHAGE) 500 mg Tablet Take 500 mg by mouth daily. 11/28/2022 DULoxetine (CYMBALTA) 60 mg Capsule, Delayed Release(E.C.) Take 60 mg by mouth. 06/07/20112022 traZODone (DESYREL) 50 mg Tablet TAKE ONE TABLET BY MOUTH AT BEDTIME 0 03/31/2018 02/05/2023 documented as of this encounter Plan of Treatment Upcoming Encounters Date Type Department Care Team (Late st Contact Info) Description 07/04/2024 12:00 PM EDT Office Visit [place] [address] Yamile Jesus MD [facility] [place] [address] 09/09/2024 3:00 PM EST TH Visit (TeleHealth) Sleep Center at [place] [address] [place] [address] Kaia Becker APRN [facility] [place] [address] documented as of this encounter Procedures Procedure Name Priority Date/Time Associated Diagnosis Comments XR LUMBAR SPINE AP FLEXION AND EXTENSION ONLY Routine 07/04/2018 12:38 PM EDT Spinal stenosis at L4-L5 level documented in this encounter Results * XR Lumbar Spine AP & Flexion & Extension Only (07/04/2018 12:38 PM EDT) Anatomical Region Laterality Modality L-spine N/A Digital Radiogra phy Impressions 07/04/2018 2:50 PM EDT Increased anterolisthesis of L4 on L5, with associated spondylitic change. Narrative 07/04/2018 2:50 PM EDT EXAMINATION: XR LUMBAR SPINE AP AND FLEXION AND EXTENSION ONLY CLINICAL HISTORY: spondylolithesis TECHNIQUE: Frontal, lateral, flexion/extension views of the lumbar spine. COMPARISON: MRI lumbar spine of 12/22/2017. Lumbar spine radiographs of 11/02/2017. FINDINGS: 5 lumbar-shaped vertebral bodies. Cholecystectomy clips in place. Mid span bilateral sacroiliac joint narrowing, may represent degenerative change. Vertebral body heights are normal throughout. There is significant disc height loss at L4/L5 and mild disc height loss at L5/S1. The anterolisthesis of L4 on L5 currently measures 1.4 cm on extension view and 1.6 cm on flexion view. No additional listhesis. There is posterior element sclerosis. Procedure Note Lorenzo Frey MD - 07/04/2018 EXAMINATION: XR LUMBAR SPINE AP AND FLEXION AND EXTENSION ONLY CLINICAL HISTORY: spondylolithesis TECHNIQUE: Frontal, lateral, flexion/extension views of the lumbar spine. COMPARISON: MRI lumbar spine of 12/22/2017. Lumbar spine radiographs of 11/02/2017. FINDINGS: 5 lumbar-shaped vertebral bodies. Cholecystectomy clips in place. Midspan bilateral sacroiliac joint narrowing, may represent degenerative change. Vertebral body heights are normal throughout. There is significant discheight loss at L4/L5 and mild disc height loss at L5/S1. The anterolisthesis of L4 on L5 currently measures 1.4 cm on extensionview and 1.6 cm on flexion view. No additional listhesis. There is posteriorelement sclerosis. IMPRESSION Increased anterolisthesis of L4 on L5, with associated spondyliticchange. Babatunde Mattson MD IMG DX ORDERABLES documented in this encounter Visit Diagnoses Diagnosis Spinal stenosis at L4-L5 level documented in this encounter Care Teams Textile Converter Relationship Specialty Start Date End Date Hemanth Walton DO [address] [place] [address] PCP - General Family Medicine 07/04/18 07/03/22 documented as of this encounter
--- OUTSIDE RECORDS SUMMARY | 2024-05-29 02:28 | XMS_ITS | Encounter Summary ---
Author Organization [facility] [place] [address] Care Team Providers Care Supervisor Contingents Name Role Phone Yissel Guerra APRN Primary Care Provider [phone] Reason for Visit * Reason Onset Date Comments Appointment 12/13/2022 Encounter Details Date Type Department Care Team (Late st Contact Info) Description 12/13/2022 Telephone [place] [address] Nany Dobson Appointment Social History Tobacco Use Types Packs/Day Years Used Date Smoking Tobacco: Never Smokeless Tobacco: Never Sex and Gender Information Value Date Recorded Sex Assigned at Female 08/24/2023 3:35 PM EDT Gender Identity Female 08/24/2023 3:29 PM EDT Sexual Orientation Straight 08/24/2023 3: 35 PM EDT documented as of this encounter Miscellaneous Notes * Telephone Encounter - Nany Dobson - 12/13/2022 10:17 AM EST LVM and sent letter via [facility] portal, please schedule from recall. documented in this encounter Plan of Treatment Upcoming Encounters Date Type Department Care Team (Late st Contact Info) Description 07/04/2024 12:00 PM EDT Office Visit [place] [address] Yamile Jesus MD [facility] [address] [facility] [address] 09/09/2024 3:00 PM EST TH Visit (TeleHealth) Sleep Center at [address] [place] [address] Kaia Becker APRN [facility] [place] [address] documented as of this encounter Visit Diagnoses Not on filedocumented in this encounter Care Teams Supervisor Contingents Relationship Specialty Start Date End Date Yissel Guerra APRN PCP - General Family Medicine 07/04/22 07/17/23 documented as of this encounter
--- OUTSIDE RECORDS SUMMARY | 2024-05-29 02:28 | XMS_ITS | Encounter Summary ---
Author Organization [facility] Address [address] [place] [address] Care Team Providers Care Industrial Furnace Fabricator Name Role Phone Yissel Guerra NP Primary Care Provider Unknown, Provider Primary Care Provider [phone] Encounter Details Date Type Department Care Team (Late st Contact Info) Description 04/13/2021 Lab Requisition [facility] Pathology & [facility] [address] [place] [address] Celia Douglas [address] [place] [address] [place] [address] Encounter for other general examination Social History [...] Date/Time Associated Diagnosis Comments SURGICAL PATHOLOGY Today 04/12/2021 16 :00 EDT Encounter for other general examination documented in this encounter Results * SURGICAL PATHOLOGY (04/12/2021 16:00 EDT) Final Diagnosis A. ENDOMETRIUM, BIOPSY: - Scant fragments of benign endocervical tissue and squamous cells admixed with abundant mucus. - No endometrial tissue identified. 04/16/2021 13:27 [facility] Diagnosis Comment Deeper sections have been examined. 04/16/2021 13:27 [facility] Attestation There was significant resident/fellow involvement in the diagnostic evaluation of this case. By the signature below, the attending physician certifies that they have personally conducted a gross and/or microscopic examination of the described specimens and rendered or confirmed the above diagnosis. 04/16/2021 13:27 [facility] at 1327 Clinical History Thickened endometrium 04/16/2021 13:27 [facility] Gross Description A. Received in formalin labelled with proper patient identification (initials V, D) and endometrium Bx is an aggregate of white to clear mucus, 1.8 x 1.8 x 1.8 cm. Entirely submitted in A1-A2. JOSEPH SNYDER(ASCP) 04/13/2021 7:46 04/16/2021 13:27 [facility] Resident/Jose w: Marcelino Cortes MD 04/16/2021 13:27 [facility] Performing Lab [facility] 04/16/2021 13:27 [facility] Scanned Images 04/16/2021 13:27 [facility] Tissue ENTIRE ENDOMETRIUM / Unknown 04/12/2021 16:00 EDT 04/13/2021 6:57 EDT Celia Douglas PATHOLOGY ORDERABLES [facility] [address] [place] [address] documented in this encounter Visit Diagnoses Diagnosis Encounter for other general examination documented in this encounter Care Teams Industrial Furnace Fabricator Relationship Specialty Start Date End Date Yissel Guerra NP PCP - General 03/23/21 07/22/23 Unknown, Provider, PCP - General 07/23/23 documented as of this encounter
--- OUTSIDE RECORDS SUMMARY | 2024-05-29 02:28 | XMS_ITS | Encounter Summary ---
[place] [address] Care Team Providers Care Robot Programmer Name Role Phone Yissel Guerra APRN Primary Care Provider [phone] Reason for Visit * Consultation (Routine) - Closed Specialty Diagnoses / Procedures Referred By Darvin segovia Referred To Contact General Surgery Diagnoses Class 3 severe obesity with serious comorbidity and body mass index (BMI) of 50.0 to 59.9 in adult, unspecified obesity type Yamile Jesus MD [facility] [address] [place] [address] [facility] [address] [place] [address] Referral ID Status Reason Start Date Expiration Date V isits Requested Visits Authorized [id number] Closed Consult, Test & Treat 12/03/2022 12/03/2023 1 1 Encounter Details Date Type Department Care Team (Late st Contact Info) Description 01/27/2023 2:00 PM EDT Notes [place] [address] Social History Tobacco Use Types Packs/Day Years Used Date Smoking Tobacco: Never Smokeless Tobacco: Never Sex and Gender Information Value Date Recorded Sex Assigned at Female 08/24/2023 3:35 PM EDT Gender Identity Female 08/24/2023 3:29 PM EDT Sexual Orientation Straight 08/24/2023 3: 35 PM EDT documented as of this encounter Progress Notes * Radha Zayas - 01/27/2023 2:00 PM EDT Patient attended the Introduction to Bariatric Surgery at [place], [place] today 01/27/2023. documented in this encounter Plan of Treatment Upcoming Encounters Date Type Department Care Team (Late st Contact Info) Description 07/04/2024 12:00 PM EDT Office Visit [place] [address] [facility] [place] [address] 09/09/2024 3:00 PM EST TH Visit (TeleHealth) Sleep Center at [facility] [address] [place] [address] Kaia Becker APRN [facility] [place] [address] Scheduled Referrals Name Type Priority Associated Diagnoses Orde r Schedule Referral to Bariatric Surgery Program Outpatient Referral Routine Class 3 severe obesity with serious comorbidity and body mass index (BMI) of 50.0 to 59.9 in adult, unspecified obesity type Ordered: 12/03/2022 documented as of this encounter Visit Diagnoses Not on filedocumented in this encounter Care Teams Robot Programmer Relationship Specialty Start Date End Date Yissel Guerra APRN PCP - General Family Medicine 07/04/22 07/17/23 documented as of this encounter
--- OUTSIDE RECORDS SUMMARY | 2024-05-29 02:28 | XMS_ITS | Encounter Summary ---
[place] [address] Care Team Providers Care Secondary Social Studies Teacher Name Role Phone Yissel Guerra APRN Primary Care Provider [phone] Reason for Visit * Reason Onset Date Comments Medication Problem 05/11/2023 Encounter Details Date Type Department Care Team (Late st Contact Info) Description 05/11/2023 Telephone [place] [address] Nany Dobson Medication Problem Social History Tobacco [...] Telephone Encounter - Gina Gillespie RN - 05/12/2023 4:16 PM EDT Called pt to let her know I got her message that she followed my instructions. * Telephone Encounter - Gina Gillespie RN - 05/12/2023 8:34 AM EDT Called pt and left detailed message as requested. Since she had the cap on her medication when trying to inject she should give herself another injection today. I will send another prescription request to Dr. Jesus to refill early since you are short. She can call if she has more questions. * Telephone Encounter - Nany Dobson - 05/11/2023 4:40 PM EDT Pharmacy or caller: Jes Bello ok to leave a detailed message if no answer Medication: tirzepatide Message: Patient states she messed up the injection and spilled almost all of the injection. She isunsure what to do or if she can take the next dose.... patient states she already called today and left a message on the nurse line. She states she getting really hungry and needs to talk to someone Please call patient. Did you contact your pharmacy?: n documented in this encounter Plan of Treatment Upcoming Encounters Date Type Department Care Team (Late st Contact Info) Description 07/04/2024 12:00 PM EDT Office Visit [place] [address] Yamile Jesus MD [facility] [place] [address] 09/09/2024 3:00 PM EST TH Visit (TeleHealth) Sleep Center at [place] [address] [place] [address] Kaia Becker APRN [facility] [place] [address] documented as of this encounter Visit Diagnoses Not on filedocumented in this encounter Care Teams Secondary Social Studies Teacher Relationship Specialty Start Date End Date Yissel Guerra APRN PCP - General Family Medicine 07/04/22 07/17/23 documented as of this encounter
--- OUTSIDE RECORDS SUMMARY | 2024-05-29 02:28 | XMS_ITS | Encounter Summary ---
[place] [address] Care Team Providers Care Funnel Coater Name Role Phone Yissel Guerra APRN Primary Care Provider [phone] Encounter Details Date Type Department Care Team (Late st Contact Info) Description 03/01/2023 Telephone [place] [phone] Yamile Jesus MD [facility] [address] [place] [address] Social History Tobacco Use Types Packs/Day Years Used Date Smoking Tobacco: Never Smokeless Tobacco: Never Sex and Gender Information Value Date Recorded Sex Assigned at Female 08/24/2023 3:35 PM EDT Gender Identity Female 08/24/2023 3:29 PM EDT Sexual Orientation Straight 08/24/2023 3: 35 PM EDT documented as of this encounter Miscellaneous Notes * Telephone Encounter - Gina Gillespie RN - 03/01/2023 1:36 PM EDT Spoke with patient and let her know that her prescription was sent to her pharmacy. There was a glitch and the start date was for March however, I called the pharmacy and got it changed. She should beable to shredder picker her medication shortly. documented in this encounter Plan of Treatment Upcoming Encounters Date Type Department Care Team (Late st Contact Info) Description 07/04/2024 12:00 PM EDT Office [place] [address] Yamlie Jesus MD [facility] [address] [place] [address] 09/09/2024 3:00 PM EST TH Visit (TeleHealth) Sleep Center at [facility] [address] [place] [address] Kaia Becker APRN [facility] [place] [address] documented as of this encounter Visit Diagnoses Not on filedocumented in this encounter Care Teams Funnel Coater Relationship Specialty Start Date End Date Yissel Guerra APRN PCP - General Family Medicine 07/04/22 07/17/23 documented as of this encounter
--- OUTSIDE RECORDS SUMMARY | 2024-05-29 02:28 | XMS_ITS | Encounter Summary ---
[place] [address] Care Team Providers Care Spring Tier Name Role Phone Yissel Guerra APRN Primary Care Provider [phone] Encounter Details Date Type Department Care Team (Late st Contact Info) Description 02/15/2023 Telephone [place] [phone] Yamile Jesus MD [facility] [address] [place] [address] Social History Tobacco Use Types Packs/Day Years Used Date Smoking Tobacco: Never Smokeless Tobacco: Never Sex and Gender Information Value Date Recorded Sex Assigned at Female 08/24/2023 3:35 PM EDT Gender Identity Female 08/24/2023 3:29 PM EDT Sexual Orientation Straight 08/24/2023 3: 35 PM EDT documented as of this encounter Miscellaneous Notes * Telephone Encounter - Nany Dobson - 02/15/2023 11:15 AM EDT Patient called back and scheduled a f/u with . She states her recent labs were done this year a couple months ago at [facility] in [place], [place]. Fax was sent today for those lab results. * Telephone Encounter - Gina Gillespie RN - 02/15/2023 9:49 AM EDT Called and left detailed message for patient. She didn't miss an apt. It is just a phone message. Sorry that it looks like it is from Gastro. Suzy was cross covering for WW and that is why it looks different. We did get you [facility] message. I will send a message as well. documented in this encounter Plan of Treatment Upcoming Encounters Date Type Department Care Team (Late st Contact Info) Description 07/04/2024 12:00 PM EDT Office [place] [address] Yamile Jesus MD [facility] [place] [address] 09/09/2024 3:00 PM EST TH Visit (TeleHealth) Sleep Center at [facility] [address] [place] [address] Kaia Becker APRN [facility] [place] [address] documented as of this encounter Visit Diagnoses Not on filedocumented in this encounter Care Teams Spring Tier Relationship Specialty Start Date End Date Yissel Guerra APRN PCP - General Family Medicine 07/04/22 07/17/23 documented as of this encounter
--- OUTSIDE RECORDS SUMMARY | 2024-05-29 02:28 | XMS_ITS | Encounter Summary ---
Author Organization [facility] [place] [address] Care Team Providers Care Assistant Construction Superintendent Name Role Phone Suki Salas MD Primary Care Provider [phone] Encounter Details Date Type Department Care Team (Latest Contact Info) Description 11/02/2017 - 11/02/2017 11:59 PM EST Hospital Encounter [place]iology [place] [phone] Marcelino Gunderson MD [facility] [place] [address] Discharge Disposition: Home Social History Tobacco Use [...] Sig Dispensed Refills Start Date End Date DULoxetine (CYMBALTA) 60 mg Capsule, Delayed Release(E.C.) Take 60 mg by mouth. 06/07/2011 06/07/2023 documented as of this encounter Plan of Treatment Upcoming Encounters Date Type Department Care Team (Late st Contact Info) Description 07/04/2024 12:00 PM EDT Office Visit [place] [phone] Yamile Jesus MD [facility] [address] BE[address] [place] [address] 09/09/2024 3:00 PM EST TH Visit (TeleHealth) Sleep Center at [address] [place] [address] Kaia Becker APRN [facility] [place] [address] documented as of this encounter Procedures Procedure Name Priority Date/Time Associated Diagnosis Comments FILM LIBRARY STORAGE ONLY DX SPINE Routine 11/02/2017 12:00 AM EST documented in this encounter Results * Film Library- Storage Only DX Spine (11/02/2017 12:00 AM EST) Narrative [facility] - 06/07/2018 12:20 PM EDT This exam is for storage only and is auto-finalizing. Marcelino Gunderson MD IMG FILM LIBRARY ORD ERABLES Performing Organization Address City/State/[facility] Co de Phone Number [place], [place] documented in this encounter Visit Diagnoses Not on filedocumented in this encounter Care Teams Assistant Construction Superintendent Relationship Specialty Start Date End Date Suki Salas MD [address] [facility] [address] PCP - General General Internal Medicine 11/01/1706/23 documented as of this encounter
--- OUTSIDE RECORDS SUMMARY | 2024-05-29 02:28 | XMS_ITS | Encounter Summary ---
[place] [address] Care Team Providers Care Theatrical Scenic Designer Name Role Phone Yissel Guerra APRN Primary Care Provider [phone] Reason for Visit * Reason Onset Date Comments Medication Reaction 05/16/2023 Encounter Details Date Type Department Care Team (Late st Contact Info) Description 05/16/2023 Telephone [place] [address] Gina Gillespie bead inspector Reaction Social History Tobacco Use Types Packs/Day Years Used Date Smoking Tobacco: Never Smokeless Tobacco: Never Sex and Gender Information Value Date Recorded Sex Assigned at Female 08/24/2023 3:35 PM EDT Gender Identity Female 08/24/2023 3:29 PM EDT Sexual Orientation Straight 08/24/2023 3: 35 PM EDT documented as of this encounter Miscellaneous Notes * Telephone Encounter - Gina Gillespie RN - 05/16/2023 1:37 PM EDT Called pt. We go the labs and I will send a message to Dr. Jesus so that she knows they are in. Burning, redness, itching and swelling are common reactions with injections. Has this happened fromthe start of 10 mg or just started? Pt states that it has started with the increased dosage. I discussed applying ice prior to injection can help with those symptoms. Discussed that she should put a cloth down first and not put ice straight onto her skin. Pt can call if she has any other concerns. * Telephone Encounter - Gina Gillespie RN - 05/16/2023 1:34 PM EDT Pt called. She has had some burning, redness, itching and swelling with Mounjaro 10 mg. It has not happened with lower dosages. She is wondering if she is having an allergic reaction. She also wanted to make sure that we have gotten the labs from [facility]. She has requested that they get faxed. documented in this encounter Plan of Treatment Upcoming Encounters Date Type Department Care Team (Late st Contact Info) Description 07/04/2024 12:00 PM EDT Office Visit [place] [address] Yamile Jesus MD [facility] [address] 09/09/2024 3:00 PM EST TH Visit (TeleHealth) Sleep Center at [place] [address] [place] [address] Kaia Becker APRN [facility] [place] [place] [address] documented as of this encounter Visit Diagnoses Not on filedocumented in this encounter Care Teams Theatrical Scenic Designer Relationship Specialty Start Date End Date Yissel Guerra APRN PCP - General Family Medicine 07/04/22 07/17/23 documented as of this encounter
--- OUTSIDE RECORDS SUMMARY | 2024-05-29 02:28 | XMS_ITS | Encounter Summary ---
[place] [address] Care Team Providers Care Er Tech Name Role Phone Charlie Yissel Newman APRN Primary Care Provider [phone] Reason for Referral * Consultation (Routine) - Closed Specialty Diagnoses / Procedures Referred By Darvin segovia Referred To Contact Gastroenterology Diagnoses Diarrhea, unspecified type motility- diarrhea Alee Henderson, MAILROOM ASSOCIATE [address] [place] [address] [facility] [address] [place] [phone] Referral ID Status Reason Start Date Expiration Date V isits Requested Visits Authorized [id number] Closed Consult, Test & Treat PCP Updated and/or Approved 04/21/2023 04/20/2024 6 6 Encounter Details Date Type Department Care Team (Latest Contact Info) Description 04/21/2023 Transcribe Orders eDH Incoming Referrals [phone] Alee Henderson, MAILROOM ASSOCIATE [address] [facility], [place] [address] Diarrhea, unspecified type Social History Tobacco Use Types [...] EDT Office Visit [place] [address] Yamile Jesus MD [facility] [place] [address] 09/09/2024 3:00 PM EST TH Visit (TeleHealth) Sleep Center at [facility] [address] [place] [address] Kaia Becker APRN [facility] [address] Scheduled Referrals Name Type Priority Associated Diagnoses Order Schedule Referral to Gastroenterology Outpatient Referral Routine Diarrhea, unspecified type Ordered: 04/21/2023 documented as of this encounter Visit Diagnoses Diagnosis Diarrhea, unspecified type documented in this encounter Care Teams Er Tech Relationship Specialty Start Date End Date Yissel Guerra APRN PCP - General Family Medicine 07/04/22 07/17/23 documented as of this encounter
--- OUTSIDE RECORDS SUMMARY | 2024-05-29 02:28 | XMS_ITS | Encounter Summary ---
[place] [address] Care Team Providers Care Prescription Clerk Lenses Name Role Phone Yissel Guerra APRN Primary Care Provider [phone] Reason for Visit * Reason Onset Date Comments Medication Refill 05/01/2023 Encounter Details Date Type Department Care Team (Late st Contact Info) Description 05/01/2023 Refill [place] [address] Yamile Jesus MD [facility] [address] [place] [address] Social History Tobacco Use Types Packs/Day Years Used Date Smoking Tobacco: Never Smokeless Tobacco: Never Sex and Gender Information Value Date Recorded Sex Assigned at Female 08/24/2023 3:35 PM EDT Gender Identity Female 08/24/2023 3:29 PM EDT Sexual Orientation Straight 08/24/2023 3: 35 PM EDT documented as of this encounter Miscellaneous Notes * Telephone Encounter - Gina Gillespie RN - 05/01/2023 9:48 AM EDT Error already sent documented in this encounter Plan of Treatment Upcoming Encounters Date Type Department Care Team (Late st Contact Info) Description 07/04/2024 12:00 PM EDT Office Visit [place] [address] Yamile Jesus MD [facility] [place] [address] 09/09/2024 3:00 PM EST TH Visit (TeleHealth) Sleep Center at [facility] [address] [place] [address] Kaia Becker APRN [facility] [place] [address] documented as of this encounter Visit Diagnoses Not on filedocumented in this encounter Care Teams Prescription Clerk Lenses Relationship Specialty Start Date End Date Yissel Guerra APRN PCP - General Family Medicine 07/04/22 07/17/23 documented as of this encounter
--- OUTSIDE RECORDS SUMMARY | 2024-05-29 02:28 | XMS_ITS | Encounter Summary ---
Author Organization [facility] Address [address] [place] [address] Care Team Providers Care Systems Software Engineer Name Role Phone Mira Ramona LOPES Primary Care Provider + Yissel Guerra NP Primary Care Provider [phone] Unknown, Provider Primary Care Provider [phone] Encounter Details Date Type Department Care Team (Late st Contact Info) Description 03/15/2021 Lab Requisition [facility] Pathology & Laboratory Medicine - [facility] [address] [place] [address] Erendira Prado, ADVANCED ANALYTICS ASSOCIATE [address] [place] [address] Encounter for other general examination Social History [...] Procedure Name Priority Date/Time Associated Diagnosis Comments PAP TEST Today 03/11/2021 14:45 EDT Encounter for other general examination HPV DNA DETECTION WITH GENOTYPING, PCR Today 03/11/2021 14:45 EDT Encounter for other general examination documented in this encounter Results * HUMAN PAPILLOMAVIRUS (HPV) DETECTION-HIGH RISK TYPES (03/11/2021 14:45 EDT) HPV other High Risk types, PCR Negative Negative 03/23/2021 16:15 T [facility] Comment:No E6 or E7 mRNA is detected from HPV types 16,18,31,33,35,39,45,51,52,56,58,59,66, and 68 by senior program manager mediated amplification. Papanicolaou smear specimen (specimen) CERVIX UTERI STRUCTURE / Unknown 03/11/2021 14:45 EDT 03/19/2021 13:29 EDT Erendira Prado NP MICROBIOLOGY - GENER AL ORDERABLES [facility] [address] [place] [address] * PAP TEST (03/11/2021 14:45 EDT) Specimens A. Cervix and/or Endocervix , ThinPrep Imaging System with Manual Evaluation 03/23/2021 16:15 [facility] Specimen Adequacy Satisfactory for Evaluation - transformation zone component absent 03/23/2021 16:15 [facility] General Categorization Negative for intraepithelial lesion or malignancy 03/23/2021 16:15 [facility] Attestation . 03/23/2021 16:15 [facility] at 1615 Clinical History See below 03/23/20 16:15 [facility] HPV The result for the Human Papillomavirus (HPV) Detection-High Risk Types is Negative. No E6 or E7 mRNA is detected from HPV types 16,18,31,33,35,39 ,45,51,52,56,58,5 9,66, and 68 by senior program manager mediated amplification.Kim ting was performed on specimen [id number] and was resulted on 03/23/2021 1601 EDT by NAHUM, LAB INSTRUMENT RESULTS IN 03/23/2021 16:15 T [facility] Performing Lab [facility] 03/23/2021 16:15 EDT [facility] Scanned Images 03/23/2021 16:15 EDT [facility] Papanicolaou smear specimen (specimen) CERVIX UTERI STRUCTURE / Unknown 03/11/2021 14:45 EDT 03/15/2021 10:18 EDT Erendira Prado NP PATHOLOGY ORDERABLES [facility] [address] [place] [address] documented in this encounter Visit Diagnoses Diagnosis Encounter for other general examination documented in this encounter Care Teams Systems Software Engineer Relationship Specialty Start Date End Date Ramona Meyers FNP PCP - General 10/08/14 03/22/21 Yissel Guerra NP PCP - General 03/23/21 07/22/23 Unknown, MD Chris PCP - General 07/23/23 documented as of this encounter
--- OUTSIDE RECORDS SUMMARY | 2024-05-29 02:28 | XMS_ITS | Encounter Summary ---
[place] [address] Care Team Providers Care Bus Driver Name Role Phone Yissel Guerra APRN Primary Care Provider [phone] Encounter Details Date Type Department Care Team (Late st Contact Info) Description 03/14/2023 Refill [place] [address] Yamile Jesus MD [facility] [address]-FAMILY MEDICINE [place], [place] [phone] Social History Tobacco Use Types Packs/Day Years Used Date Smoking Tobacco: Never Smokeless Tobacco: Never Sex and Gender Information Value Date Recorded Sex Assigned at Female 08/24/2023 3:35 PM EDT Gender Identity Female 08/24/2023 3:29 PM EDT Sexual Orientation Straight 08/24/2023 3: 35 PM EDT documented as of this encounter Miscellaneous Notes * Telephone Encounter - Gina Gillespie RN - 03/14/2023 12:46 PM EDT Patient returned call and would like to stay on Mounjaro 5mg for a couple more weeks. She would like a script for Zofran. She has had depression for most of her life and know herself well. She has been unable to exercise or get out. Today she went for a ride on back roads and it lifted her spirits.She no longer things it is the medication causing her increased depression. Update: Called patient and let her know that she can stay on 5mg and will send in script for Zofran. She should touch base if she has increased side affects. * Telephone Encounter - Gina Gillespie RN - 03/14/2023 8:28 AM EDT Patient called. She increased her Mourjaro to 5mg 2 days ago. She is having some nausea, increased fatigue, eating more, and her depression is worse. She has depression at baseline but believes it has increased. She states she is not suicidal. She has read on a Facebook site that increase hunger is common on the 5mg dosage and believes she read that there was increased depression with the injectables. She wanted to check on before continuing at current dosage. Update: Called patient and let her know that Dr. Todd says that worsening depression is a rare side affect but can happen. She recommends that you decrease to 2.5mg. She is also going to prescribe Zofran for nausea. If you have any worsening depression or thoughts of suicide please reach out. You stated that you were not but we want to make sure that you get the help you need if you do experience those thoughts. Please reach out and let us know how you are feeling on the decreased dosage. documented in this encounter Plan of Treatment Upcoming Encounters Date Type Department Care Team (Late st Contact Info) Description 07/04/2024 12:00 PM EDT Office Visit [place] [address] Yamile Jesus MD [facility] [place] [address] 09/09/2024 3:00 PM EST TH Visit (TeleHealth) Sleep Center at [facility] [address] [place] [address] Kaia Becker APRN [facility] [place] [place] [address] documented as of this encounter Visit Diagnoses Not on filedocumented in this encounter Care Teams Bus Driver Relationship Specialty Start Date End Date Yissel Guerra, DIRECTOR INTERNAL CONTROL PCP - General Family Medicine 07/04/22 07/17/23 documented as of this encounter
--- OUTSIDE RECORDS SUMMARY | 2024-05-29 02:28 | XMS_ITS | Encounter Summary ---
Author Organization [facility] [place] [address] Care Team Providers Care Side Guider Name Role Phone Yissel Guerra APRN Primary Care Provider [phone] Encounter Details Date Type Department Care Team (Late st Contact Info) Description 02/10/2023 Telephone [place] [address] Odette Fairbanks, RN Social History Tobacco Use Types Packs/Day Years Used Date Smoking Tobacco: Never Smokeless Tobacco: Never Sex and Gender Information Value Date Recorded Sex Assigned at Female 08/24/2023 3:35 PM EDT Gender Identity Female 08/24/2023 3:29 PM EDT Sexual Orientation Straight 08/24/2023 3: 35 PM EDT documented as of this encounter Miscellaneous Notes * Telephone Encounter - Odette Fairbanks, RN - 02/10/2023 11:34 AM EDT Jes calls as she wants to let Dr. Jesus know that she has lost 11 lbs on the Rybelsus/ documented in this encounter Plan of Treatment Upcoming Encounters Date Type Department Care Team (Late st Contact Info) Description 07/04/2024 12:00 PM EDT Office Visit [place] [address] Yamile Jesus MD [facility] [address] [place] [address] 09/09/2024 3:00 PM EST TH Visit (TeleHealth) Sleep Center at [facility] [address] [place] [address] Kaia Becker APRN [facility] [place] [address] documented as of this encounter Visit Diagnoses Not on filedocumented in this encounter Care Teams Side Guider Relationship Specialty Start Date End Date Yissel Guerra APRN PCP - General Family Medicine 07/04/22 07/17/23 documented as of this encounter
--- OUTSIDE RECORDS SUMMARY | 2024-05-29 02:28 | XMS_ITS | Encounter Summary ---
[place] [address] Care Team Providers Care Email Specialist Name Role Phone Yissel Guerra APRN Primary Care Provider [phone] Encounter Details Date Type Department Care Team (Latest Contact Info) Description 01/08/2023 Travel Social History Tobacco Use Types Packs/Day [...] EDT Office Visit [place] [address] Yamile Jesus MD [facility] [place] [address] 09/09/2024 3:00 PM EST TH Visit (TeleHealth) Sleep Center at [facility] [address] [place] [phone] Kaia Becker APRN [facility] [place] [address] documented as of this encounter Visit Diagnoses Not on filedocumented in this encounter Care Teams Email Specialist Relationship Specialty Start Date End Date Yissel Guerra APRN PCP - General Family Medicine 07/04/22 07/17/23 documented as of this encounter
--- OUTSIDE RECORDS SUMMARY | 2024-05-29 02:28 | XMS_ITS | Encounter Summary ---
[place] [address] Care Team Providers Care Blacksmith Farm Name Role Phone Yissel Guerra APRN Primary Care Provider [phone] Encounter Details Date Type Department Care Team (Late st Contact Info) Description 05/24/2023 Telephone Weight [place] [address] Gina Gillespie RN Social History Tobacco Use Types Packs/Day Years Used Date Smoking Tobacco: Never Smokeless Tobacco: Never Sex and Gender Information Value Date Recorded Sex Assigned at Female 08/24/2023 3:35 PM EDT Gender Identity Female 08/24/2023 3:29 PM EDT Sexual Orientation Straight 08/24/2023 3: 35 PM EDT documented as of this encounter Miscellaneous Notes * Telephone Encounter - Gina Gillespie RN - 05/24/2023 9:46 AM EDT Called pt. The pharmacy will not send just one pen. Recommend doing another month of Mounjaro 10 mg. Let us know in 3 weeks how you are feeling and if you want to increase your dosage. * Telephone Encounter - Gina Gillespie RN - 05/24/2023 9:44 AM EDT Pt called stating that she got a full box of Mounjaro 10 mg and thought that she would just get onepen. She supposes she will do 2 months of 10 mg. It might be good since she has had some nausea. Please call and advise. Can leave detailed message. documented in this encounter Plan of Treatment Upcoming Encounters Date Type Department Care Team (Late st Contact Info) Description 07/04/2024 12:00 PM EDT Office Visit Weight [place] [address] Yamile Jesus MD [facility] [place] [address] 09/09/2024 3:00 PM EST TH Visit (TeleHealth) Sleep Center at [facility] [address] [place] [address] Kaia Becker APRN [facility] [place] [address] documented as of this encounter Visit Diagnoses Not on filedocumented in this encounter Care Teams Blacksmith Farm Relationship Specialty Start Date End Date Yissel Guerra APRN PCP - General Family Medicine 07/04/22 07/17/23 documented as of this encounter
--- OUTSIDE RECORDS SUMMARY | 2024-05-29 02:28 | XMS_ITS | Encounter Summary ---
[place] [address] Care Team Providers Care Production Line Solderer Name Role Phone Yissel Guerra ZACK Primary Care Provider [phone] Encounter Details Date Type Department Care Team (Late st Contact Info) Description 01/09/2023 Refill Weight [place] [address] Ag Patel Warren Type 2 diabetes mellitus without complication, unspecified whether termite control technician insulin use (Primary Dx); Hypertension, unspecified type Social History Tobacco Use Types Packs/Day Years Used Date Smoking Tobacco: Never Smokeless Tobacco: Never Sex and Gender Information Value Date Recorded Sex Assigned at Female 08/24/2023 3:35 PM EDT Gender Identity Female 08/24/2023 3:29 PM EDT Sexual Orientation Straight 08/24/2023 3: 35 PM EDT documented as of this encounter Miscellaneous Notes * Telephone Encounter - Ag Patel N - 01/09/2023 9:38 AM EDT Inbound/Outbound: Inbound Spoke to Patient/Left Message: Spoke to patient Notes: Inbound call from patient stating that she needs refill of Rybelsus, and needs to be bumped up to 14mg, as the 7mg she is taking loses its effect in the evening and she ends up eating later atnight. Patient states that she is out of her medication, and wants sent to the following pharmacy. Patientrequests that this request be marked urgent as she is out of the medication. [facility] - [place], [place] - [address] [facility] Contact Information Phone Fax Address [phone] [address] [facility] Type External E-Prescribing? Yes documented in this encounter Plan of Treatment Upcoming Encounters Date Type Department Care Team (Late st Contact Info) Description 07/04/2024 12:00 PM EDT Office Visit Weight [place] [address] Yamile Jesus MD [facility] [place] [address] 09/09/2024 3:00 PM EST TH Visit (TeleHealth) Sleep Center at [facility] [address] [place] [address] Kaia Becker APRN [facility] [place] [address] documented as of this encounter Visit Diagnoses Diagnosis Type 2 diabetes mellitus without complication, unspecified whether nursing home insulin use- Primary Hypertension, unspecified type documented in this encounter Care Teams Production Line Solderer Relationship Specialty Start Date End Date Yissel Guerra APRN PCP - General Family Medicine 07/04/22 07/17/23 documented as of this encounter
--- OUTSIDE RECORDS SUMMARY | 2024-05-29 02:28 | XMS_ITS | Encounter Summary ---
[place] [address] Care Team Providers Care Neighborhood Coordinator Name Role Phone Yissel Guerra APRN Primary Care Provider [phone] Encounter Details Date Type Department Care Team (Late st Contact Info) Description 03/14/2023 Telephone [place] [phone] Yamile Jesus MD [facility] [address] [place] [address] Social History Tobacco Use Types Packs/Day Years Used Date Smoking Tobacco: Never Smokeless Tobacco: Never Sex and Gender Information Value Date Recorded Sex Assigned at Female 08/24/2023 3:35 PM EDT Gender Identity Female 08/24/2023 3:29 PM EDT Sexual Orientation Straight 08/24/2023 3: 35 PM EDT documented as of this encounter Miscellaneous Notes * Telephone Encounter - Gina Gillespie RN - 03/14/2023 12:35 PM EDT Patient returned call. She would like to stay at Mounjaro 5mg for another week or 2 to see how she does. She would like the nausea meds. She has had history of depression and went for A drive today which helped her mood. She believes that the medication is now not the issue. She has been unable to get exercise or get out and believes that is it. documented in this encounter Plan of Treatment Upcoming Encounters Date Type Department Care Team (Late st Contact Info) Description 07/04/2024 12:00 PM EDT Office [place] [address] Yamile Jesus MD [facility] [address] [place] [address] 09/09/2024 3:00 PM EST TH Visit (TeleHealth) Sleep Center at [facility] [address] [place] [address] Kaia Becker APRN [facility] [place] [address] documented as of this encounter Visit Diagnoses Not on filedocumented in this encounter Care Teams Neighborhood Coordinator Relationship Specialty Start Date End Date Yissel Guerra APRN PCP - General Family Medicine 07/04/22 07/17/23 documented as of this encounter
--- OUTSIDE RECORDS SUMMARY | 2024-05-29 02:28 | XMS_ITS | Encounter Summary ---
Author Organization [facility] [place] [address] Care Team Providers Care Artificial Flowers Dyer Name Role Phone Suki Salas MD Primary Care Provider [phone] Reason for Referral * Consultation (Routine) - Closed Specialty Diagnoses / Procedures Referred By Contac t Referred To Contact Orthopaedics Diagnoses Lumbar stenosis/ MRI 12/2017 @ [facility]/ XR prior Babatunde Mattson MD [facility] [place] [address] Loc Stephenson MD [facility] [place] [place] [address] Referral ID Status Reason Start Date Expiration Date V isits Requested Visits Authorized [id number] Closed Consult, Test & Treat 06/06/2018 06/06/2019 1 1 Reason for Visit * Reason Onset Date Comments Medication Refill 06/06/2018 Encounter Details Date Type Department Care Team (Late st Contact Info) Description 06/06/2018 [place] [address] Babatunde Mattson MD [facility] [place] [address] Spinal stenosis at L4-L5 level Social History Tobacco Use Types Packs/Day Years [...] EDT Office Visit [place] [address] Yamile Jesus MD [facility] [place] [address] 09/09/2024 3:00 PM EST TH Visit (TeleHealth) Sleep Center at [facility] [address] [place] [address] Kaia Becker APRN [facility] [place] [address] Scheduled Referrals Name Type Priority Associated Diagnoses Orde r Schedule Referral to Spine Center Outpatient Referral Routine Spinal stenosis at L4-L5 level Ordered: 06/06/2018 documented as of this encounter Results * XR Lumbar Spine [...] Diagnoses Diagnosis Spinal stenosis at L4-L5 level Spinal stenosis at L4-L5 level documented in this encounter Care Teams Artificial Flowers Dyer Relationship Specialty Start Date End Date Suki Salas MD [address] [facility] [place] [address] PCP - General General Internal Medicine 11/01/1706/23 documented as of this encounter
--- OUTSIDE RECORDS SUMMARY | 2024-05-29 02:28 | XMS_ITS | Encounter Summary ---
[place] [address] Care Team Providers Care Senior Quality Engineer Name Role Phone Yissel Guerra APRN Primary Care Provider [phone] Reason for Visit * Reason Onset Date Comments Medication Refill 02/28/2023 Encounter Details Date Type Department Care Team (Late st Contact Info) Description 02/28/2023 Refill [place] [address] Yamile Jesus MD [facility] [address] [place] [address] Social History Tobacco Use Types Packs/Day Years Used Date Smoking Tobacco: Never Smokeless Tobacco: Never Sex and Gender Information Value Date Recorded Sex Assigned at Female 08/24/2023 3:35 PM EDT Gender Identity Female 08/24/2023 3:29 PM EDT Sexual Orientation Straight 08/24/2023 3: 35 PM EDT documented as of this encounter Miscellaneous Notes * Telephone Encounter - Gina Gillespie RN - 02/28/2023 2:07 PM EDT Jes called and requested a refill of her Mounjaro. She is feeling well with no side affects. She would like to increase dosage. documented in this encounter Plan of Treatment Upcoming Encounters Date Type Department Care Team (Late st Contact Info) Description 07/04/2024 12:00 PM EDT Office Visit [place] [address] Yamile Jesus MD [facility] [place] [address] 09/09/2024 3:00 PM EST TH Visit (TeleHealth) Sleep Center at [facility] [address] [place] [address] Kaia Becker APRN [facility] [place] [address] documented as of this encounter Visit Diagnoses Not on filedocumented in this encounter Care Teams Senior Quality Engineer Relationship Specialty Start Date End Date Yissel Guerra APRN PCP - General Family Medicine 07/04/22 07/17/23 documented as of this encounter
--- OUTSIDE RECORDS SUMMARY | 2024-05-29 02:28 | XMS_ITS | Encounter Summary ---
[place] [address] Care Team Providers Care Database Operator Name Role Phone Yissel Guerra APRN Primary Care Provider [phone] Reason for Visit * Reason Onset Date Comments Questions 11/29/2022 Encounter Details Date Type Department Care Team (Late st Contact Info) Description 11/29/2022 Telephone [place] [address] Nany Dobson Questions Social History Tobacco Use Types Packs/Day Years Used Date Smoking Tobacco: Never Smokeless Tobacco: Never Sex and Gender Information Value Date Recorded Sex Assigned at Female 08/24/2023 3:35 PM EDT Gender Identity Female 08/24/2023 3:29 PM EDT Sexual Orientation Straight 08/24/2023 3: 35 PM EDT documented as of this encounter Miscellaneous Notes * Telephone Encounter - Shelia Roberson RN - 11/30/2022 11:42 AM EST Spoke to pt, she will start rybelsus tomorrow. * Telephone Encounter - Nany Dobson - 11/29/2022 1:02 PM EST Message: Jes called in and states she plans to start rybelsus medication tomorrow on 11/30. [place] did have labs done in September and had elevated kidney labs that she would like to make sure the provider is aware of. Ask caller their first and last name and relationship to the patient: self Best time to call back: any Ok to leave a message: y Ok to send - message: y Offered Appointment: n documented in this encounter Plan of Treatment Upcoming Encounters Date Type Department Care Team (Late st Contact Info) Description 07/04/2024 12:00 PM EDT Office Visit [place] [address] Yamile Jesus MD [facility] [place] [address] 09/09/2024 3:00 PM EST TH Visit (TeleHealth) Sleep Center at [facility] [address] [place] [address] Kaia Becker APRN [facility] [place] [address] documented as of this encounter Visit Diagnoses Not on filedocumented in this encounter Care Teams Database Operator Relationship Specialty Start Date End Date Yissel Guerra APRN PCP - General Family Medicine 07/04/22 07/17/23 documented as of this encounter
--- OUTSIDE RECORDS SUMMARY | 2024-05-29 02:28 | XMS_ITS | Encounter Summary ---
[place] [address] Care Team Providers Care Money Order Clerk Name Role Phone Yissel Guerra APRN Primary Care Provider [phone] Reason for Visit * Reason Onset Date Comments Medication Refill 05/12/2023 Encounter Details Date Type Department Care Team (Late st Contact Info) Description 05/12/2023 Refill [place] [address] Yamile Jesus MD [facility] [place] [address] Type 2 diabetes mellitus without complication, unspecified whether shelter insulin use Social History Tobacco Use Types [...] EDT Office [place] [address] Yamile Jesus MD [facility] [place] [place] [address] 09/09/2024 3:00 PM EST TH Visit (TeleHealth) Sleep Center at [address] [place] [address] Kaia Becker APRN [facility] [place] [address] documented as of this encounter Visit Diagnoses Diagnosis Type 2 diabetes mellitus without complication, unspecified whether shelter insulin use documented in this encounter Care Teams Money Order Clerk Relationship Specialty Start Date End Date Yissel Guerra APRN PCP - General Family Medicine 07/04/22 07/17/23 documented as of this encounter
--- OUTSIDE RECORDS SUMMARY | 2024-05-29 02:28 | XMS_ITS | Encounter Summary ---
Author Organization [facility] Address [address] [place] [address] Care Team Providers Care Licensed Practical Nurse Clinic Nurse Name Role Phone Unknown, Provider Primary Care Provider Encounter Details Date Type Department Care Team (Late st Contact Info) Description 08/29/2023 Lab Requisition [facility] Pathology & Laboratory Medicine - [facility] [address] [place] [address] [place] [place], [place] [id number] Disorder of the skin and subcutaneous tissue, unspecified Social History Tobacco Use Types Packs/Day Years [...] Date/Time Associated Diagnosis Comments SURGICAL PATHOLOGY Today 08/28/2023 14 :40 EST Disorder of the skin and subcutaneous tissue, unspecified documented in this encounter Results * SURGICAL PATHOLOGY (08/28/2023 14:40 EST) Note to Patient The following pathology results have been interpreted by your pathologist and may be available to you before your health provider has had the opportunity to review them. Please allow time for your provider to receive these results and explore management options, if applicable. 08/30/2023 8:19 [facility] Final Diagnosis A. SKIN OF SCALP, MIDLINE CROWN, SHAVE BIOPSY: - Blue nevus, involving all tissue edges. See comment 08/30/2023 8:19 [facility] Diagnosis Comment The biopsy is small and fragmented. Within the dermis, pigmented spindle cells are seen. Cytologically, pleomorphism is not appreciated and mitotic activity is not identified. In the sections examined, the findings are consistent with a blue nevus. The lesion and its pigment extend to all tissue edges and therefore persistent/recurr ence is likely. Correlation is with clinical presentation and size is essential. 08/30/2023 8:19 [facility] Attestation By the signature below, the attending physician certifies that they have 1) personally conducted a gross and/or microscopic examination of the described specimen(s), and/or personally interpreted the results of laboratory testing of the described specimen(s), and 2) personally rendered or confirmed the above diagnosis. 08/30/2023 8:19 [facility] at 0819 Clinical History Aprox. 6 mm round, dark pigmented lesion, unsure how long it's been there or if it's changing; clinical diagnosis code: L98.9 08/30/2023 8:19 [facility] Gross Description A. Received in formalin labelled with proper patient identification (initials V, D) and M crown scalp is an aggregate of red-brown focally white fragments (0.3 x 0.2 x 0.1 cm). Entirely submitted in A1. JOSEPH FITZGERALD(ASCP) 08/29/2023 9:11 08/30/2023 8:19 [facility] Performing Lab [facility] 08/30/2023 8:19 [facility] Scanned Images 08/30/2023 8:19 [facility] Tissue SPECIMEN FROM SKIN / Unknown 08/28/2023 14:40 EST 08/29/2023 7:56 EST Layne Lagos RUSSIAN HISTORY PROFESSOR PATHOLOGY ORDERABLE S [facility] [address] [place] [address] documented in this encounter Visit Diagnoses Diagnosis Disorder of the skin and subcutaneous tissue, unspecified documented in this encounter Care Teams Licensed Practical Nurse Clinic Nurse Relationship Specialty Start Date End Date Unknown, Provider, PCP - General 07/23/23 documented as of this encounter
--- OUTSIDE RECORDS SUMMARY | 2024-05-29 02:28 | XMS_ITS | Encounter Summary ---
Author Organization [facility] [place] [address] Care Team Providers Care Director Database Name Role Phone Yissel Guerra APRN Primary Care Provider Encounter Details Date Type Department Care Team (Late st Contact Info) Description 10/21/2022 Telephone [place] [address] Reyna Call Social History Tobacco Use Types Packs/Day Years Used Date Smoking Tobacco: Never Smokeless Tobacco: Never Sex and Gender Information Value Date Recorded Sex Assigned at Female 08/24/2023 3:35 PM EDT Gender Identity Female 08/24/2023 3:29 PM EDT Sexual Orientation Straight 08/24/2023 3: 35 PM EDT documented as of this encounter Miscellaneous Notes * Telephone Encounter - Gregoria Tamez V - 10/21/2022 11:03 AM EST LM to reschedule appt with Dr. Jesus. documented in this encounter Plan of Treatment Upcoming Encounters Date Type Department Care Team (Late st Contact Info) Description 07/04/2024 12:00 PM EDT Office [place] [address] Yamile Jesus MD [facility] [address] [place] [address] 09/09/2024 3:00 PM EST TH Visit (TeleHealth) Sleep Center at [facility] [address] [place] [address] Kaia Becker APRN [facility] [place] [address] documented as of this encounter Visit Diagnoses Not on filedocumented in this encounter Care Teams Director Database Relationship Specialty Start Date End Date Yissel Guerra APRN PCP - General Family Medicine 07/04/22 07/17/23 documented as of this encounter
--- OUTSIDE RECORDS SUMMARY | 2024-05-29 02:28 | XMS_ITS | Encounter Summary ---
[place] [address] Care Team Providers Care Medical Doctor Md/Medical Director Name Role Phone Yissel Guerra APRN Primary Care Provider [phone] Encounter Details Date Type Department Care Team (Latest Contact Info) Description 01/20/2023 Travel Social History Tobacco Use Types Packs/Day [...] EDT Office Visit Weight [place] [address] Yamile Jesus MD [facility] [place] [address] 09/09/2024 3:00 PM EST TH Visit (TeleHealth) Sleep Center at [facility] [address] [place] [phone] Kaia Becker APRN [facility] [place] [place] [address] documented as of this encounter Visit Diagnoses Not on filedocumented in this encounter Care Teams Medical Doctor Md/Medical Director Relationship Specialty Start Date End Date Yissle Guerra APRN PCP - General Family Medicine 07/04/22 07/17/23 documented as of this encounter
--- OUTSIDE RECORDS SUMMARY | 2024-05-29 02:28 | XMS_ITS | Encounter Summary ---
[place] [address] Care Team Providers Care Stave And Bolt Equalizer Name Role Phone Yissel Guerra APRN Primary Care Provider [phone] Reason for Visit * Reason Onset Date Comments Medication Refill 03/28/2023 Encounter Details Date Type Department Care Team (Late st Contact Info) Description 03/28/2023 Refill [place] [address] Yamile Jesus MD [facility] [place] [address] Social History Tobacco Use Types Packs/Day Years [...] EDT Office Visit [place] [address] Yamile Jesus MD [facility] [place] [address] 09/09/2024 3:00 PM EST TH Visit (TeleHealth) Sleep Center at [facility] [address] [place] [address] Kaia Becker APRN [facility] [place] [address] documented as of this encounter Visit Diagnoses Not on filedocumented in this encounter Care Teams Stave And Bolt Equalizer Relationship Specialty Start Date End Date Yissel Guerra APRN PCP - General Family Medicine 07/04/22 07/17/23 documented as of this encounter
--- OUTSIDE RECORDS SUMMARY | 2024-05-29 02:28 | XMS_ITS | Encounter Summary ---
Author Organization [facility] [place] [address] Care Team Providers Care Gastrointestinal Technician Name Role Phone Suki Salas MD Primary Care Provider [phone] Encounter Details Date Type Department Care Team (Latest Contact Info) Description 12/22/2017 - 12/22/2017 11:59 PM EST Hospital Encounter [place] [address] Marcelino Gunderson MD [facility] [place] [address] Discharge Disposition: Home Social History Tobacco Use [...] EDT Office Visit [place] [address] Yamile Jesus MD [facility] [address] [place] [address] 09/09/2024 3:00 PM EST TH Visit (TeleHealth) Sleep Center at [address] [place] [address] Kaia Becker APRN [facility] [place] [address] documented as of this encounter Procedures Procedure Name Priority Date/Time Associated Diagnosis Comments FILM LIBRARY STORAGE ONLY MR SPINE Routine 12/22/2017 12:00 AM EST documented in this encounter Results * Film Library- Storage Only MR Spine (12/22/2017 12:00 AM EST) Narrative [facility] - 06/07/2018 12:20 PM EDT This exam is for storage only and is auto-finalizing. Marcelino Gunderson MD IMG FILM LIBRARY ORD ERABLES Performing Organization Address City/State/[facility] Co de Phone Number [place], [place] documented in this encounter Visit Diagnoses Not on filedocumented in this encounter Care Teams Gastrointestinal Technician Relationship Specialty Start Date End Date Suki Salas MD [address] [facility] [place] [address] PCP - General General Internal Medicine 11/01/1706/23 documented as of this encounter
--- OUTSIDE RECORDS SUMMARY | 2024-05-29 02:28 | XMS_ITS | Clinical Summary ---
Author Organization [facility] Address [address] [place] [address] Care Team Providers Care Dredge Operator Supervisor Name Role Phone Unknown, Provider Primary Care [...] ve Active Problems No known active problems Surgical History Surgery Date Site/Laterality Comments TONSILLECTOMY AND ADENOIDECTOMY CHOLECYSTECTOMY EYE SURGERY right Medical History Medical History Date Comments Arthritis Blind right eye Sleep apnea Diabetes (HCC-CMS) Asthma Hypothyroidism Hypertension Depression Anxiety Overactive bladder Stomach problems Sleeping difficulty Breathing problem Memory problem Family History Medical History Relation Comments Diabetes Other High Blood Pressure Other Relation Status Comments Other Social History Tobacco Use Types Packs/Day Years Used Date Smoking Tobacco: Never Alcohol Use Standard Drinks/Week Comments No 0 (1 standard drink = 0.6 oz pur e alcohol) Sex and Gender Information Value Date Recorded Sex Assigned at Not on file Gender Identity Not on file Sexual Orientation Not on file Obstetrics History Last Filed Vital Signs Vital Sign Reading [...] 50.64 10/08/2014 1507 EST Plan of Treatment Health Maintenance Due Date Last Done Comments RSV Immunization ( o r 60+ Years) (1 - 1-dose 60+ series) 2020 COVID-19 Vaccine ( - 2022-24 season) 2023 Hepatitis C Screen Completed 03/13/2023 Procedures Procedure Name Priority Date/Time Associated Diagnosis Comments HEPATITIS C AB W REFLEX TO HCV RNA BY PCR Routine 03/13/2023 14:42 EDT from Last 3 Months or Most Recently Relevant to Health Maintenance Results * HEPATITIS C AB W REFLEX TO HCV RNA BY PCR (03/13/2023 14:42 EDT) Hep C Antibody Negative Negative 03/14/2023 10:07 EDT [facility] Blood VENOUS BLOOD / Unknown 03/13/2023 14:42 EDT 03/13/2023 21:10 EDT Provider Outr Resulting Lab CHEMISTRY & BLOOD GAS ORDERABLES [facility] [address] [place] [address] from Last 3 Months or Most Recently Relevant to Health Maintenance Care Teams Dredge Operator Supervisor Relationship Specialty Start Date End Date Unknown, Provider, PCP - General 07/23/23
--- OUTSIDE RECORDS SUMMARY | 2024-05-29 02:28 | XMS_ITS | Encounter Summary ---
[place] [address] Care Team Providers Care Telecommunications Operator Name Role Phone Yissel Guerra APRN Primary Care Provider Encounter Details Date Type Department Care Team (Late st Contact Info) Description 10/04/2022 External Results [facility] at [address] [phone] Shelia Roberson, RN Social History Tobacco Use Types Packs/Day [...] EDT Office [place] [address] [facility] [place] [address] 09/09/2024 3:00 PM EST TH Visit (TeleHealth) Sleep Center at [address] [phone] [facility] [place] [address] documented as of this encounter Procedures Procedure Name Priority Date/Time Associated Diagnosis Comments HEMOGLOBIN A1C Routine 09/28/2022 [facility] 2 Routine 11/29/2021 documented in this encounter Results * Hemoglobin A1c (09/28/2022) Hemoglobin A1c 8.1 Blood Historical Provider CHEMISTRY ORDERAB LES * (ABNORMAL) [facility] Labs 2 - External (11/29/2021) Glucose 182(H) Sodium 137 Potassium 4.6 Chloride 102 Carbon Dioxide 26 Blood Urea Nitrogen 25(H) Creatinine 1.2(H) Est Glomerular Filtration Rate 45.67(L) Aspartate Aminotransferase 22 Alanine Aminotransferase 37 Hemoglobin 15.2 Hematocrit 45.6 White Blood Cell 9.09 Platelet 264 11/29/2021 Historical Provider POINT OF CARE MAHAD T ORDERABLES documented in this encounter Visit Diagnoses Not on filedocumented in this encounter Care Teams Telecommunications Operator Relationship Specialty Start Date End Date Yissel Guerra APRN PCP - General Family Medicine 07/04/22 07/17/23 documented as of this encounter
--- OUTSIDE RECORDS SUMMARY | 2024-05-29 02:28 | XMS_ITS | Encounter Summary ---
[place] [address] Care Team Providers Care Metal Work Duct Installer Name Role Phone Yissel Guerra APRN Primary Care Provider [phone] Reason for Referral * Consultation (Routine) - Closed Specialty Diagnoses / Procedures Referred By Darvin segovia Referred To Contact General Surgery Diagnoses Class 3 severe obesity with serious comorbidity and body mass index (BMI) of 50.0 to 59.9 in adult, unspecified obesity type Yamile Jesus MD [facility] [place] [address] [facility] [address] [place] [address] Referral ID Status Reason Start Date Expiration Date V isits Requested Visits Authorized [id number] Closed Consult, Test & Treat 12/03/2022 12/03/2023 1 1 Encounter Details Date Type Department Care Team (Late st Contact Info) Description 11/28/2022 3:30 PM EST TH Visit (TeleHealth) [place] [phone] Yamile Jesus MD [facility] [place] [address] Class 3 severe obesity with serious comorbidity and body mass index (BMI) of 50.0 to 59.9 in adult, unspecified obesity type; Hypertension, unspecified type; Type 2 diabetes mellitus without complication, unspecified whether fpc insulin use; Mixed anxiety and depressive disorder; Hypothyroidism, unspecified [...] - Inhaled Oxygen Concentration - - Weight 128.8 kg (284 lb) 11/28/2022 3:35 PM EST Pt reported Height 160 cm (5' 3) 11/28/2022 3:35 PM EST Body Mass Index 50.31 11/28/2022 3:35 PM EST documented in this encounter Progress Notes * Yamile Jesus MD - 11/28/2022 3:30 PM ESTSummary: 1st visit long XIE Patient provided verbal consent prior to initiation of this telemedicine encounter and expressed understanding that the telemedicine visit may be billed similar to a clinic visit, pt was seen while via [x] Video [] phone For this video visit, pt is located at: [facility] [place] Patient Name: Jes Bello Date of : 1960 Age: 62 y.o. Referring provider: No ref. provider found Dear Yissel Guerra APRN, No ref. provider found Thank you for referring Jes Bello to the [facility]. Jes Bello presented to the [facility] for a consultative visit regarding obesity management. The patient presented with WHO Class 3 / EOSS Stage 2 Obesity defined by a BMI of Body mass index is 50.31 kg/m??. and comorbidities: HTN, DM 2, anxiety/depression, thyroid disease. Jes and I discussed and agreed upon the pillars of obesity treatment: nutrition, activity, behavioral change and medication management. Our team will address each of these pillars as we provide ongoing comprehensive obesity care for Jes. I look forward to collaborating with you and Jes on this journey. To that end, I will make medication adjustments as appropriate based on the patient's ongoing state of health and provide referralsas they relate to her obesity care. Medications that I often manage include, but are not limited to, anti-obesity meds, diabetic medications and anti-hypertensives. Any medication adjustments I make will be communicated to you to maintain seamless care. For referrals and other specific care plans, see the Assessment and Plan: ASSESSMENT: Jes Bello is a 62 y.o. female with uncontrolled obesity who presented to [facility] today for medicalevaluation with associated co-morbidities as above. Obesity is a multifactorial disease, and in this case, the following factors could be potential contributors: ?? Obesity is caused by hormonal disorder of fat regulation and insulin is the major hormone that drives weight gain. ?? Genetics and Epigenetics: + FHx ?? Insulin resistance: DM 2 ?? Timing of meals/Circadian pattern: NO ?? Consumption of sugar and highly refined carbohydrates (processed foods)--consumption of foods that are high in sugar and processed that can lead to metabolic/hormonal changes that can increase body fat by causing insulin resistance. ?? Low intake of fat fighting foods (fruits, vegetables, legumes, nuts, seeds, quality protein) ?? Medications: psych meds ?? Sleep Disturbance:insomnia/CIARA h/o CIARA ?? Disordered Eating: emotional eating? ?? Inactivity + OA ?? Stress and too much cortisol: Prolonged cortisol release associated with chronic stress is strongly correlated with the development of obesity PLAN: 1. Referral to BS placed 2. MD f/u CHIEF COMPLAINT: Management of excess weight HISTORY OF PRESENT ILLNESS: I asked for a referral for weight loss. I think you are a fat doctor. I have obesity in my family for generations. Has 2 cousins who had BS. Weight History: No flowsheet data found. Jes Bello has had gradual weight gain due to: genetics, + ACEs, current decreased mobility Why is now the time to try again? This is the worst is has ever been. I just don't feel good. Barriers to success: OA/knees and R ankle Impact on life: Significant Weight hx: Onset: OW as kid, about 20 lbs more; Max wt: 284 lbs Lowest wt and when: 239 lbs, 2018 Successful attempts in the past: Tried Mediterranean diet, DASH diet, walking; went to groups for emotional eating as well What was helpful from that/those programs? Family Hx of Obesity? Entire Fathers side Hx medications to treat obesity: Redux -> 45-50 lbs in 6 months; also took phentermine -> less effective Metformin (DM 2) Hx metabolic surgery: Would consider? Initial weight 12/03/22: 284 lbs Initial Body mass index is 50.31 kg/m??. Goal weight: Unclear 10% loss: 28 lbs Other goals: No flowsheet data found. Obesogenic medications: ? Obesity related co-morbidities: anxiety/depression, HTN, DM 2 No flowsheet data found. 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 + CIARA, not using CPAP, uses special pillows []S []T []O []P []B []A []N []G: No flowsheet data found. 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 11 PM Time to Sleep? When do you wake? 10 AM Eating episode #1 Brunch 11 adarsh, trying IF until 1 pm now - eggs OR yogurt, cheerios, glucerna, chili Eating episode #2 Dinner - turkey chili OR chicken OR cod/nadir/scallops - [employer] once a month Snacking? Depends, nuts, baby tomatoes After dinner eating? Not really Eating before bed to sleep? I used to, when younger, but then got wicked indigestion - I found thatfood would help me sleep What do you drink? Water, milk, diet soda, juice Food Behaviors Appetite: As long as I eat when I should, hunger is reasonable Satiety/Fullness: One plate sometimes 2, depending on what it is Cravings? Sweets, often carbs - I love pizza, I love white rice Eating out of: [x]Hunger []Habit []It's time. []Boredom [x]Emotions - managing this better, in therapy for ACEs Eating patterns: [] Mindless eating [] binge eating [] Grazing [] skips meals [x] Night eating - I used to, emotional eating, not anymore - try to sit with whatever feelings I am having Movement: No flowsheet data found. Is ambulation limited most or all of the time? Needs support to walk Tolerance: she can climb a flight of stairs? A little unsteady Purposeful exercise now? NO Activity enjoyed in past? Walking Stress: lower to moderate stress Work - looking for work Family support - a lot of alcoholics, parents are , cut off brother Social support - some friends Self-monitoring: [] Daily or weekly weights [] Food log/da [] Other [x] None currently REVIEW OF SYSTEMS: Positives as below Review of Systems No flowsheet data found. No flowsheet data found. No flowsheet data found. MEDICAL HISTORY Medical and Surgical History: Reviewed. Past Medical History: Diagnosis Date ??? Depression ??? Hypertension PSurgHx: 2 eye surgeries - 7 and 17 Tonsils/adenoids age 7 CCY in her 40s Medication C/I: GB? NO Any h/o pancreatitis? NO Any h/o kidney stones? NO Any h/o or FHx of thyroid CA (MTC?) NO Any h/o kidney disease/failure? GFR 56 Any h/o glaucoma? NO Gynecologic: using/taking reliable contraception? Menopause Family History: Reviewed. No flowsheet data found. Family History Problem (# of Occurrences) Relation (Name,Age of Onset) Diabetes (1) Mother (63) Chronic Obstructive Pulmonary Disease (1) Father (74) Social History: /Partner? NO Children? NO Smoking? NO ETOH? When younger, now none at all Other substances? Used to smoke a little MJ when younger Food insecurity? Unclear, remembers one day having a candy bar for lunch and nothing else No flowsheet data found. VITAL SIGNS: Vitals: 11/28/22 1535 Weight: 128.8 kg (284 lb) Height: 160 cm (5' 3) Body mass index is 50.31 kg/m??. PHYSICAL EXAM: Gen: 62 y.o. year old female with obesity who appears stated age. NAD. Appearance: appropriate, well-kempt Psych: pleasant, conversant and engaged, normal affect, cognition and mood. PREVIOUS LABS AND IMAGING: Reviewed Last CBC Lab Results Component Value Date WBC 9.47 10/12/2022 HGB 15.3 10/12/2022 HCT 43.8 10/12/2022 PLATELET 267 10/12/2022 Last CMP Lab Results Component Value Date NA 135 (L) 10/12/2022 K 4.1 10/12/2022 CL 101 10/12/2022 CO2 27 10/12/2022 BUN 28 (H) 10/12/2022 CREATININE 1.1 (H) 10/12/2022 GLUCOSE 200 (H) 10/12/2022 ESTGFR 56.18 (L) 10/12/2022 Lab Results Component Value Date ALT 45 10/12/2022 AST 26 10/12/2022 Lipid Panel Lab Results Component Value Date CHLPL 152 10/12/2022 HDL 44 10/12/2022 TRIG 126 10/12/2022 LDLCHOL 83 10/12/2022 Last 3 Hemoglobin A1Cs Lab Results Component Value Date HA1C 8.1 (H) 10/12/2022 HA1C 8.1 09/28/2022 Latest TSH Lab Results Component Value Date TSH 3.06 10/12/2022 No results found for: LABINSU No results found for: GLUCFASTING No results found for: FERRITIN No results found for: [id number] No results found for: 25OHVITD INITIAL EVALUATION: FACTORS CONTRIBUTING TO OBESITY/INTERVENTION Risk Stratification: CIARA untreated, DM 2 Obesogenic meds: NONE Plan: No change at this time Co-morbidities to address: Anxiety, Depression, HTN, CIARA-untreated, Thyroid dz and Type 2 DM AOM: On Wellbutrin (depression), Jardiance and rybelsus (DM 2) Medication considerations: []insulin sensitizing meds []phentermine []topiramate []bupropion []naltrexone Factors contributing to decision making: NO hx of pancreatitis, NO Fam or personl hx of medullary thyroid ca, NO hx of kidney stones, NO Hx of glaucoma/regular eye check ONGOING INTERVENTIONS Referrals: Has RD in community bariatric surgery For specific behavioral interventions, see goals Nutrition: discussed whole food, quality diet; specific recommendations per RD Behavior: Eating related to boredom/emotions Activity: provided resistance bands and booklet Barriers: []needs cardiac eval []injury/pain preventing activity right now Stress Management:has counselor Sleep: CIARA - untreated, needs f/u, refer to sleep med Self-monitoring: Food log Discussion 12/03/22: Pillars, Set point theory, Medication options with r/b and Bariatric surgery pathway/process Diagnoses and all orders for this visit: Class 3 severe obesity with serious comorbidity and body mass index (BMI) of 50.0 to 59.9 in adult,unspecified obesity type Hypertension, unspecified type Type 2 diabetes mellitus without complication, unspecified whether car conditioner insulin use Mixed anxiety and depressive disorder Hypothyroidism, unspecified type No orders of the defined types were placed in this encounter. Return in about 8 weeks (around 01/23/2023) for In person or Zoom, With me. I spent a total of 45 minutes in [id number] discussion/counseling regarding the diagnosis of obesity, interventions for treatment, and obesity related co- morbidities as well as documentation of visit and chart review, including notes, labs, and other evaluations as reviewed below. Goals Addressed None Care pathway: Pathway: No flowsheet data found. I spoke with Jes about opportunities to participate in research and to be contacted by our research supply assistant. They indicated that they are: [] INTERESTED [] NOT INTERESTED // [x] NOT ADDRESSED [facility] Initial Responses 07/04/2018 PROMIS 10 Physical Scores 37.4 PROMIS 10 Mental Scores 36.3 URICA: <8 Precontemp, 8-12 Contemp, 12+ Prep TFEQ: Look at transformed scores, average is 50, +/-2SD is sigfnif, consider referral >70 WEL-SF: Range 0-80, higher = better PROMIS Avg score = 50 REAP score 13-39, higher = more diversity in diet, better documented in this encounter Plan of Treatment Upcoming Encounters Date Type Department Care Team (Late st Contact Info) Description 07/04/2024 12:00 PM EDT Office Visit [place] [address] Yamile Jesus MD [facility] [place] [address] 09/09/2024 3:00 PM EST TH Visit (TeleHealth) Sleep Center at [facility] [address] [place] [address] Kaia Becker, CANCER REGISTRY COORDINATOR [facility] [place] [address] Scheduled Referrals Name Type Priority Associated Diagnoses [...] to 59.9 in adult, unspecified obesity type Hypertension, unspecified type Type 2 diabetes mellitus without complication, unspecified whether fpc insulin use Mixed anxiety and depressive disorder Dysthymic disorder Hypothyroidism, unspecified type CIARA (obstructive sleep apnea) Obstructive sleep apnea (adult) (pediatric) documented in this encounter Care Teams Metal Work Duct Installer Relationship Specialty Start Date End Date Yissel Guerra APRN PCP - General Family Medicine 07/04/22 07/17/23 documented as of this encounter
--- OUTSIDE RECORDS SUMMARY | 2024-05-29 02:28 | XMS_ITS | Encounter Summary ---
Author Organization [facility] Address [address] [place] [address] Care Team Providers Care Hybrid Tester Name Role Phone Yissel Guerra NP Primary Care Provider [phone] Unknown, Provider Primary Care Provider [phone] Encounter Details Date Type Department Care Team (Late st Contact Info) Description 12/01/2021 Lab Requisition [facility] - [facility] [address], [place] [id number] Erendira Ling MD [address] [place] [address],[address] [place], [place] [id number] Encounter for other general examination Social History [...] Date/Time Associated Diagnosis Comments SURGICAL PATHOLOGY Today 12/01/2021 9: 04 EST Encounter for other general examination documented in this encounter Results * SURGICAL PATHOLOGY (12/01/2021 9:04 EST) Note to Patient The following pathology results have been interpreted by your pathologist and may be available to you before your health provider has had the opportunity to review them. Please allow time for your provider to receive these results and explore management options, if applicable. 12/06/2021 9:19 [facility] Final Diagnosis A. CERVIX, POLYP, BIOPSY: - Benign endocervical polyp. B. ENDOMETRIUM, BIOPSY: - Disordered proliferative endometrium. See Comment. 12/06/2021 9:19 [facility] Diagnosis Comment This pattern may be associated with poorly opposed estrogens in the post-menopausal setting. 12/06/2021 9:19 [facility] Attestation There was significant resident/fellow involvement in the diagnostic evaluation of this case. By the signature below, the attending physician certifies that they have personally conducted a gross and/or microscopic examination of the described specimens and rendered or confirmed the above diagnosis. 12/06/2021 9:19 [facility] at 0919 Clinical History Thickened endometrium 12/06/2021 9:19 [facility] Gross Description A. Received in formalin labelled with proper patient identification (initials V, D) and polyp endocervical is a 1.0 x 0.9 x 0.5 cm fragment of pink-castro soft tissue with scant mucus. The specimen is bisected and entirely submitted in A1. B. Received in formalin labelled with proper patient identification (initials V, D) and endometrial curettings are multiple fragments of red-brown soft tissue and mucus (2.5 x 2.0 x 0.5 cm in aggregate). The specimen is entirely submitted in B1. JOSEPH STEPHENSON(ASCP) 12/02/2021 9:23 12/06/2021 9:19 [facility] Resident/Jose w: Emily Bauer MD 12/06/2021 9:19 [facility] Performing Lab [facility] 12/06/2021 9:19 [facility] Scanned Images 12/06/2021 9:19 [facility] Tissue ENTIRE ENDOMETRIUM / Unknown 12/01/2021 9:04 EST 12/01/2021 23:05 EST Tissue specimen (specimen) ENDOMETRIAL STRUCTURE / Unknown 12/01/2021 9:04 EST 12/01/2021 23:05 EST Erendira Ling MD PATHOLOGY ORDERABLES [facility] [address] [place] [phone] documented in this encounter Visit Diagnoses Diagnosis Encounter for other general examination documented in this encounter Care Teams Hybrid Tester Relationship Specialty Start Date End Date Yissel Guerra PLANNING AIDE PCP - General 03/23/21 07/22/23 Unknown, Provider, PCP - General 07/23/23 documented as of this encounter
--- OUTSIDE RECORDS SUMMARY | 2024-05-29 02:28 | XMS_ITS | Encounter Summary ---
[place] [address] Care Team Providers Care Material Assembler Name Role Phone Yissel Guerra APRN Primary Care Provider [phone] Encounter Details Date Type Department Care Team (Late st Contact Info) Description 04/14/2023 3:00 PM EDT Office Visit [place] [address] Yamile Jesus MD [facility] [address] [place] [address] Type 2 diabetes mellitus without complication, unspecified whether continuous linter drier operator insulin use; Hypertension, unspecified type; Mixed anxiety [...] Sign Reading Time Taken Comments Blood Pressure 142/57 04/14/2023 3:12 PM EDT Pulse 91 04/14/2023 3:12 PM EDT Temperature - - Respiratory Rate - - Oxygen Saturation - - Inhaled Oxygen Concentration - - Weight 114 kg (251 lb 6.4 oz) 04/14/2023 3:12 PM EDT Height 161.9 cm (5' 3.75) 04/14/2023 3:12 PM ED T Body Mass Index 43.49 04/14/2023 3:12 PM EDT documented in this encounter Progress Notes * Yamile Jesus MD - 04/14/2023 3:00 PM EDTSummary: 3rd visit with MD Images from the original note were not included. [facility] Patient Name: Jes Bello Date of : 1960 Age: 62 y.o. Yissel Guerra APRN Thank you for referring Jes Bello to the [facility]. I saw her for a follow-up visit today, 04/14/23. Please see changes to care as documented in the assessment and plan. CHIEF COMPLAINT: F/u for treatment of WHO Class 3 / EOSS Stage 2 Obesity, defined by BMI at presentation, with comorbidities:HTN, DM 2, anxiety/depression, thyroid disease. . This is Visit #3 [facility] visit for this 62 y.o. patient. Initial weight 12/03/22: 284 lbs 02/03/2023, no new weight 04/14/2023, 251 lbs (- 33 lbs) [facility] Team: RD in the community HPI Transitioned ok from Rybelsus to Mounjaro. Saw Jane Arteaga, had labs done. Still having high sugars, having DUB, US scheduled () in early April. PILLARS Stress - still in therapy, I enjoy it, it is helpful. I am not real happy with where I am at. Not out of the house much, working from home. Lonely - live in the [facility]. Sleep - I cannot sleep, told PCP, made a referral to sleep medicine, booked out until Jun. Exercise - fatigued, mobility issues Nutrition - eating less or less often on the lower doses of Mounjaro Very hard to eat with no appetite, eating once a day a big meal a day - a brunch Later, might have a cracker Drinking - coconut water, lemon juice AOM: Currently taking: Mounjaro 7.5 mg AOM HX: Jardiance (DM 2) - [...] HLP-LS []Culinary []ACT []Monthly Lifestyle Classes Discussion 04/14/23:Current pathways reviewed. Doing very well on Mounjaro, will titrate to max as tolerated. Labs requested from PCP. In HLP. Cont f/u. No data to display VITAL SIGNS: Vitals: 04/14/23 1512 BP: 142/57 BP Location (NBP): Left arm Patient Position: Sitting BP Cuff Sizes: Large Adult (32-43 cm) Pulse: 91 Weight: 114 kg (251 lb 6.4 oz) Height: 161.9 cm (5' 3.75) Body mass index is 43.49 kg/m??. PHYSICAL EXAM: Gen: Alert and appropriate, [...] found for: GLUCFASTING No results found for: NEPUIXNH06 No results found for: 25OHVITD No results found for: URICACID ASSESSMENT AND PLAN Jes Bello was seen in follow up today for ongoing Metabolically unhealthy obesity not yet at treatment goal [x] with improvement [] without change. Goals and treatment options were discussed. Continue medical management and lifestyle changes. For specific behavioral interventions, see goals/AVS FACTORS ASSOCIATED WITH OBESITY Obesogenic meds: Anti-depressant Plan: No change at this time Metabolic Co-morbidities addressed with weight loss: Hypertension and Type 2 Diabetes Other Co-Morbidities impacted by weight loss: Anxiety, Depression, CIARA-untreated and Thyroid dz Referrals pending: HLP AOM: Mounjaro 7.5 g -> 10 mg Diagnoses and all orders for this visit: Type 2 diabetes mellitus without complication, unspecified whether continuous linter drier operator insulin use - tirzepatide 10 mg/0.5 mL Pen Injector; Inject 10 mg subcutaneously once a week. Hypertension, unspecified type Mixed anxiety and depressive disorder Hypothyroidism, unspecified type CIARA (obstructive sleep apnea) Class 3 severe obesity with serious comorbidity and body mass index (BMI) of 40.0 to 44.9 in adult,unspecified obesity type No orders of the defined types were placed in this encounter. No follow-ups on file. 1 min chart review 30 min bidj-cs-pxgd visit 5 min documentation time I spent [...] EDT Office Visit [place] [address] Yamile Jesus MD [facility] [place] [address] 09/09/2024 3:00 PM EST TH Visit (TeleHealth) Sleep Center at [facility] [address] [place] [address] Kaia Becker APRN [facility] [place] [address] documented as of this encounter Visit Diagnoses Diagnosis Type 2 diabetes mellitus without complication, unspecified whether continuous linter drier operator insulin use Hypertension, unspecified type Mixed anxiety and depressive disorder Dysthymic disorder Hypothyroidism, unspecified type CIARA (obstructive sleep apnea) Obstructive sleep apnea (adult) (pediatric) Class 3 severe obesity with serious comorbidity and body mass index (BMI) of 40.0 to 44.9 in adult, unspecified obesity type documented in this encounter Care Teams Material Assembler Relationship Specialty Start Date End Date Yissel Guerra APRN PCP - General Family Medicine 07/04/22 07/17/23 documented as of this encounter
--- OUTSIDE RECORDS SUMMARY | 2024-05-29 02:28 | XMS_ITS | Encounter Summary ---
[place] [address] Care Team Providers Care Outside Cutter Hand Name Role Phone Yissel Guerra APRN Primary Care Provider [phone] Encounter Details Date Type Department Care Team (Late st Contact Info) Description 04/05/2023 Telephone [place] [address] Gina Gillespie RN Social History Tobacco Use Types Packs/Day Years Used Date Smoking Tobacco: Never Smokeless Tobacco: Never Sex and Gender Information Value Date Recorded Sex Assigned at Female 08/24/2023 3:35 PM EDT Gender Identity Female 08/24/2023 3:29 PM EDT Sexual Orientation Straight 08/24/2023 3: 35 PM EDT documented as of this encounter Miscellaneous Notes * Telephone Encounter - Gina Gillespie RN - 04/05/2023 9:09 AM EDT Pt called stating that she was unable to make the right foods to eat class on 04/03 and is wonderingif there will be another one. She would like to sign up for it if so. Message sent to Minerva for scheduling. documented in this encounter Plan of Treatment Upcoming Encounters Date Type Department Care Team (Late st Contact Info) Description 07/04/2024 12:00 PM EDT Office Visit [place] [address] Yamile Jesus MD [facility] [place] [address] 09/09/2024 3:00 PM EST TH Visit (TeleHealth) Sleep Center at [facility] [address] [place] [address] Kaia Becker APRN [facility] [place] [address] documented as of this encounter Visit Diagnoses Not on filedocumented in this encounter Care Teams Outside Cutter Hand Relationship Specialty Start Date End Date Yissel Guerra APRN PCP - General Family Medicine 07/04/22 07/17/23 documented as of this encounter
--- OUTSIDE RECORDS SUMMARY | 2024-05-29 02:28 | XMS_ITS | Encounter Summary ---
[place] [address] Care Team Providers Care Cable Repairer Name Role Phone Yissel Guerra APRN Primary Care Provider Encounter Details Date Type Department Care Team (Late st Contact Info) Description 11/25/2022 External Results [place] [phone] Shelia Roberson, RN Social History Tobacco Use [...] EDT Office Visit [place] [phone] Yamile Jesus MD [facility] [address] [place] [address] 09/09/2024 3:00 PM EST TH Visit (TeleHealth) Sleep Center at [facility] [address] [place] [address] Kaia Becker APRN [facility] [place] [address] documented as of this encounter Procedures Procedure Name Priority Date/Time Associated Diagnosis Comments [facility] EXTERNAL LABS 2 Routine 10/12/2022 documented in this encounter Results * (ABNORMAL) [facility] Labs 2 - External (10/12/2022) Cholesterol, Total 152 Triglyceride 126 HDL Cholesterol 44 LDL Cholesterol 83 Glucose 200(H) Hemoglobin A1c 8.1(H) Sodium 135(L) Potassium 4.1 Chloride 101 Carbon Dioxide 27 Blood Urea Nitrogen 28(H) Creatinine 1.1(H) Est Glomerular Filtration Rate 56.18(L) Aspartate Aminotransferase 26 Alanine Aminotransferase 45 Thyroid Stimulating Hormone 3.06 Hemoglobin 15.3 Hematocrit 43.8 White Blood Cell 9.47 Platelet 267 10/12/2022 Historical Provider POINT OF CARE MAHAD T ORDERABLES documented in this encounter Visit Diagnoses Not on filedocumented in this encounter Care Teams Cable Repairer Relationship Specialty Start Date End Date Yissel Guerra, TRACE CLERK PCP - General Family Medicine 07/04/22 07/17/23 documented as of this encounter
--- OUTSIDE RECORDS SUMMARY | 2024-05-29 02:28 | XMS_ITS | Encounter Summary ---
[place] [address] Care Team Providers Care Applications Scientist Name Role Phone Yissel Guerra APRN Primary Care Provider [phone] Reason for Visit * Reason Onset Date Comments Medication Refill 03/28/2023 Encounter Details Date Type Department Care Team (Late st Contact Info) Description 03/28/2023 Telephone Weight [place] [phone] Yamile Jesus MD [facility] [address] [place] [address] Medication Refill Social History Tobacco Use Types Packs/Day Years Used Date Smoking Tobacco: Never Smokeless Tobacco: Never Sex and Gender Information Value Date Recorded Sex Assigned at Female 08/24/2023 3:35 PM EDT Gender Identity Female 08/24/2023 3:29 PM EDT Sexual Orientation Straight 08/24/2023 3: 35 PM EDT documented as of this encounter Miscellaneous Notes * Telephone Encounter - Gina Gillespie RN - 03/28/2023 10:34 AM EDT Patient called and needs refill of mounjaro. Last dose of 5 mg will be 6/8. Would like to increase to 7.5 mg. [facility]. Update: Called pt. Med pended to pharmacy for provider to sign. She is in clinic so it might take a day or two for it to be done. documented in this encounter Plan of Treatment Upcoming Encounters Date Type Department Care Team (Late st Contact Info) Description 07/04/2024 12:00 PM EDT Office Visit Weight [place] [address] Yamile Jesus MD [facility] [place] [address] 09/09/2024 3:00 PM EST TH Visit (TeleHealth) Sleep Center at [address] [place] [address] Kaia Becker APRN [facility] [place] [address] documented as of this encounter Visit Diagnoses Not on filedocumented in this encounter Care Teams Applications Scientist Relationship Specialty Start Date End Date Yissel Guerra APRN PCP - General Family Medicine 07/04/22 07/17/23 documented as of this encounter
--- OUTSIDE RECORDS SUMMARY | 2024-05-29 02:28 | XMS_ITS | Encounter Summary ---
Author Organization [facility] Address [address] [place] [address] Care Team Providers Care Plaster Machine Tender Name Role Phone Yissel Guerra NP Primary Care Provider [phone] Unknown, Provider Primary Care Provider [phone] Encounter Details Date Type Department Care Team (Late st Contact Info) Description 03/13/2023 Lab Requisition [facility] Pathology & Laboratory Medicine - [facility] [address] [place], [place] [address] Outr Resulting Lab, Provider Social History Tobacco [...] Procedure Name Priority Date/Time Associated Diagnosis Comments HIV 1/2 ANTIGEN AND ANTIBODY, 4TH GENERATION Routine 03/13/2023 14:42 EDT documented in this encounter Results * HIV 1/2 ANTIGEN AND ANTIBODY, 4TH GENERATION (03/13/2023 14:42 EDT) HIV 1 and 2 Antibody/p24 Antigen, 4th Generation Negative Negative 03/14/2023 9:53 EDT [facility] Comment:If acute HIV-1 infec tion is suspected in a high risk patient, submit plasma specimen for HIV-1 RNA quantitation test. Blood VENOUS BLOOD / Unknown 03/13/2023 14:42 EDT 03/13/2023 21:10 EDT Narrative [facility] - 03/14/2023 9:53 EDT Fourth Generation assay performed on the Hurricane Party[employer] XPT. Provider Outr Resulting Lab IMMUNOLOGY A ND SEROLOGY ORDERABLES [facility] [address] [place] [address] documented in this encounter Visit Diagnoses Not on filedocumented in this encounter Care Teams Plaster Machine Tender Relationship Specialty Start Date End Date Yissel Guerra NP PCP - General 03/23/21 07/22/23 Unknown, Provider, PCP - General 07/23/23 documented as of this encounter
--- OUTSIDE RECORDS SUMMARY | 2024-05-29 02:28 | XMS_ITS | Encounter Summary ---
[place] [address] Care Team Providers Care Senior Oracle Applications Developer Name Role Phone Yissel Guerra APRN Primary Care Provider [phone] Reason for Visit * Reason Onset Date Comments Medication Refill 03/16/2023 Encounter Details Date Type Department Care Team (Late st Contact Info) Description 03/16/2023 Telephone [place] [address] Yamile Jesus MD [facility] [address] [facility] [address] Medication Refill Social History Tobacco Use Types Packs/Day Years Used Date Smoking Tobacco: Never Smokeless Tobacco: Never Sex and Gender Information Value Date Recorded Sex Assigned at Female 08/24/2023 3:35 PM EDT Gender Identity Female 08/24/2023 3:29 PM EDT Sexual Orientation Straight 08/24/2023 3: 35 PM EDT documented as of this encounter Miscellaneous Notes * Telephone Encounter - Gina Gillespie RN - 03/16/2023 3:22 PM EDT Patient looking for script for nausea med Update: Called and left message. It was sent to [facility] pharmacy as requested. documented in this encounter Plan of Treatment Upcoming Encounters Date Type Department Care Team (Late st Contact Info) Description 07/04/2024 12:00 PM EDT Office Visit [place] [address] Yamile Jesus MD [facility] [place] [address] 09/09/2024 3:00 PM EST TH Visit (TeleHealth) Sleep Center at [facility] [address] [place] [address] Kaia Becker APRN [facility] [place] [place] [address] documented as of this encounter Visit Diagnoses Not on filedocumented in this encounter Care Teams Senior Oracle Applications Developer Relationship Specialty Start Date End Date Yissel Guerra APRN PCP - General Family Medicine 07/04/22 07/17/23 documented as of this encounter
--- OUTSIDE RECORDS SUMMARY | 2024-05-29 02:29 | XMS_ITS | Encounter Summary ---
Author Organization [facility] Address [address] [place] [address] Care Team Providers Care Licensed Funeral Director Name Role Phone Lukasz Sotelo MD Primary Care Provider [phone] Reason for Visit * Reason Onset Date Comments Advice Only 01/15/2013 Encounter Details Date Type Department Care Team (Late st Contact Info) Description 01/15/2013 Telephone [facility] Foot & Ankle Program - [address] [place], [place] [id number] Tara Owens [address] [place] [address] Advice Only Social History Tobacco Use Types Packs/Day Years Used Date Smoking Tobacco: Never Alcohol Use Standard Drinks/Week Comments No 0 (1 standard drink = 0.6 oz pur e alcohol) Sex and Gender Information Value Date Recorded Sex Assigned at Not on file Gender Identity Not on file Sexual Orientation Not on file documented as of this encounter Miscellaneous Notes * Telephone Encounter - Tara Owens - 01/15/2013 1035 EDT I called and spoke with Jes and advised her that we would Send a Physical Therapy order to Rehab Services at [facility] so she could try traction therapy. She will call and schedule A appointment with Selma Mcintyre if it works so she can get a home Device Tara Owens 01/15/2013 10:41 documented in this encounter Plan of Treatment Not on file documented as of this encounter Visit Diagnoses Not on filedocumented in this encounter Care Teams Licensed Funeral Director Relationship Specialty Start Date End Date Lukasz Sotelo MD [address] [place] [address] PCP - General 05/04/11 10/07/14 documented as of this encounter
--- OUTSIDE RECORDS SUMMARY | 2024-05-29 02:29 | XMS_ITS | Encounter Summary ---
Author Organization [facility] Address [address] [place] [address] Care Team Providers Care 2 Year Olds Preschool Teacher Name Role Phone Lukasz Sotelo MD Primary Care Provider [phone] Reason for Visit * Reason Onset Date Comments Results 07/12/2011 Encounter Details Date Type Department Care Team (Late st Contact Info) Description 07/12/2011 Telephone [facility] Interventional Pain [address] [place] [address] [place] [address] [place] [address] Results Social History Tobacco Use Types Packs/Day Years Used Date Smoking Tobacco: Never Alcohol Use Standard Drinks/Week Comments No 0 (1 standard drink = 0.6 oz pur e alcohol) Sex and Gender Information Value Date Recorded Sex Assigned at Not on file Gender Identity Not on file Sexual Orientation Not on file documented as of this encounter Miscellaneous Notes * Telephone Encounter - Sarah Barrios RN - 07/12/2011 1427 EDT Results for lumbar facets recorded in doc flowsheets, 90% relief for 2 hours. * Telephone Encounter - Rafaelaguilardali Azeb - 07/12/2011 1413 EDT Patient is calling to return the nurses call. Things were fine a short time after the injection. Five days later no pain. 85-90% relief. Left leg is still very bothersome. Please call the patient forfurther information. It is best to call in the afternoon. She is requesting that Dr King not be involved in her care. documented in this encounter Plan of Treatment Not on file documented as of this encounter Visit Diagnoses Not on filedocumented in this encounter Care Teams 2 Year Olds Preschool Teacher Relationship Specialty Start Date End Date Lukasz Sotelo MD [address] [place] [address] PCP - General 05/04/11 10/07/14 documented as of this encounter
--- OUTSIDE RECORDS SUMMARY | 2024-05-29 02:29 | XMS_ITS | Encounter Summary ---
Author Organization [facility] Address [address] [place] [address] Care Team Providers Care Real Estate Agency Licensee Name Role Phone Ramona Meyers AUTO ACCESSORIES INSTALLER Primary Care Provider + Reason for Visit * Reason Comments Back Pain low back pain Leg Pain left leg pain Encounter Details Date Type Department Care Team (Late st Contact Info) Description 12/03/2014 11:00 EST Office Visit [facility] Interventional Pain [address] [place] [address] Johana Gonzalez MD Rosio, MD Manda [address] [place] [id number] DJD (degenerative joint disease), lumbar (Primary Dx); Facet arthropathy of spine Social History Tobacco Use Types Packs/Day Years [...] Sign Reading Time Taken Comments Blood Pressure 135/67 12/03/2014 1137 EST Pulse 82 12/03/2014 1137 EST Temperature 37.2 ??C (98.9 ??F) 12/03/2014 1119 EST Respiratory Rate 18 12/03/2014 1137 EST Oxygen Saturation - - Inhaled Oxygen Concentration - - Weight - - Height 162.6 cm (5' 4) 12/03/2014 1119 EST Body Mass Index - - documented in this encounter Discharge Diagnoses Diagnosis 721.3 LUMBOSACRAL SPONDYLOSIS[ICD-9-CM] 724.2 LUMBAGO[ICD-9-CM] 738.4 ACQ SPONDYLOLISTHESIS[ICD-9-CM] 338.4 CHRONIC PAIN SYNDROME[ICD-9-CM] documented in this encounter Patient Instructions * Patient Instructions* Keyla Limon RN - 12/03/2014 11:36 EST [facility] [address] [address] Patient Instructions You have had your bilateral lumbar Facet Steroid Injection. The purpose of [...] back tomorrow with this information. Procedure end time:___11:50 AM Pain relief start time___1200 Returned to baseline pain Hours of relief [...] None Outcomes: independent and verbalized understanding Signature: KEYLA LIMON RN documented in this encounter Progress Notes * Dai Stephenson - 12/03/2014 1123 EST [facility] Rooming Note Does patient have a Director Of Alumni Relations? yes Is patient NPO? (Solids since midnight [...] there a chance current ? no Other: * Manda Avelar MD - 12/03/2014 1114 EST Patient Name: Jes Bello : 1960 Date of Service: 12/03/2014 Knit Goods Mender: Johana Gonzalez MD Barrel Assembly Inspector: Yohannes Avelar MD Interval History: Ms. Bello presents for continued evaluation and treatment of her chronic low back pain. The details of the current complaint are thoroughly described in the consultation notes from their last encounter with Ray Andersen on 10/30/14 including pain onset, location, course, workup, therapeutic attempts, and associated functional limitations. The patient reports no recent changes in the character, quality, or distribution of the pain. There are no recent onset of new associated symptoms such as changes in strength, sensation, or bladder control. Currently her pain is an 8/10 in severity. Injection History: 12/03/14: right L4-5, L5-S1 facet injections, left side aborted due to pt discomfort 10/27/11: Left l5-S1 TFESI-- patient is unable [...] Patient is alert and oriented x 3. Appropriate inconversation. NAD. The patient does appear her stated age of 54 y.o.. The pain syndrome is clinically relayed without embellishment. she rises from a seated position without difficulty. SKIN: WNL. Warm and dry. No lesions, apparent rashes, bruising or petechiae. No signs of infection in the lumbosacral region. NEURO: CN II-XII are grossly intact. Motor strength is 5/5 throughout all motor groups in bilateral lower extremities. Sensation is intact and symmetrical to light touch throughout bilateral lower extremities. EXTREMITIES: No clubbing, cyanosis, or edema. MUSCULOSKELETAL: ROM was full with flexion, extension and lateral rotation. Neg Facet loading maneuvers with extension of lumbar spine. nontender to palpation of lowback PULM: Non labored breathing. Assessment:Patient is a 54 y.o. year old female with a chronic pain syndrome and a primary complaint of low back pain and leg pain. This pain has not responded to conservative therapy and she has hadmixed relief with interventional therapy to date. Associated diagnoses: Encounter Diagnoses Name Primary? DJD (degenerative joint disease), lumbar Yes ??? Facet arthropathy of spine Plan: Proceed with diagnostic and therapeutic facet joint injections at right L4-L5 and L5-S1 Follow up: within 24 hrs by telephone to report results of diagnostic injection and as needed to repeat left side We also discussed that she should also make an appt with [facility] to discuss surgical options which she is interested in exploring. Procedure: The patient gave informed written consent [...] The skin and subcutaneous tissue over the right L4-L5 and L5-S1 facet joints was anesthetized [...] reviewed with the patient prior to discharge. Manda Avelar MD Attending attestation: I saw and examined the patient with the resident/fellow. I agree with the findings and plan of care documented in the resident's/fellow's note. I was present and participated during the entire procedure. Johana Gonzalez MD documented in this encounter Plan of Treatment Not on file documented as of this encounter Visit Diagnoses Diagnosis DJD (degenerative joint disease), lumbar- Primary Degeneration of lumbar or lumbosacral intervertebral disc Facet arthropathy of spine Spondylosis of unspecified site without mention of myelopathy documented in this encounter Administered Medications Inactive Administered Medications - up to 3 most recent administrations Medication Order MAR Action Action Date Dose Rate Site bupivacaine (PF) (MARCAINE) 0.5 % (5 mg/mL) injection 10 mg 10 mg (2 mL), intra-articular, NOW X1, 1 dose, On Mon12/03/14 at 1200, Routine Given by Other 12/03/2014 11:44 EST 10 mg methylPREDNISolone ACETATE (DEPO-MEDROL) injection 80 mg 80 mg, intra-articular, NOW X1, 1 dose, On Mon12/03/14 at 1200, Routine Given by Other 12/03/2014 11:44 EST 80 mg documented in this encounter Historical Medications * This list may reflect changes made after this encounter. Medication Sig Dispensed Refills Start Date End Date ASCORBIC ACID/VITAMIN E (CRANBERRY CONCENTRATE ORAL) Take by mouth Multivitamins with Minerals tablet Take 1 Tab by mouth daily added in this encounter Care Teams Real Estate Agency Licensee Relationship Specialty Start Date End Date Ramona Meyers FNP PCP - General 10/08/14 03/22/21 documented as of this encounter
--- OUTSIDE RECORDS SUMMARY | 2024-05-29 02:29 | XMS_ITS | Encounter Summary ---
Author Organization [facility] Address [address] [place] [address] Care Team Providers Care Shuttle Spotter Name Role Phone Lukasz Sotelo MD Primary Care Provider [phone] Reason for Visit * Reason Onset Date Comments Back Pain 08/31/2011 Encounter Details Date Type Department Care Team (Late st Contact Info) Description 08/31/2011 Telephone [facility] Spine Program - [address] [place], [place] [id number] Jane Reyna PA-C Back Pain Social History Tobacco Use Types Packs/Day Years Used Date Smoking Tobacco: Never Alcohol Use Standard Drinks/Week Comments No 0 (1 standard drink = 0.6 oz pur e alcohol) Sex and Gender Information Value Date Recorded Sex Assigned at Not on file Gender Identity Not on file Sexual Orientation Not on file documented as of this encounter Miscellaneous Notes * Telephone Encounter - Jane Jules PA - 08/31/2011 1510 EST I left a message with Mrs. Bello offering another left L5-S1 TFESI as it sounds like she had good/partial relief of her L5 radicular symptoms. documented in this encounter Plan of Treatment Not on file documented as of this encounter Visit Diagnoses Not on filedocumented in this encounter Care Teams Shuttle Spotter Relationship Specialty Start Date End Date Lukasz Sotelo MD [address] [place] [address] PCP - General 05/04/11 10/07/14 documented as of this encounter
--- OUTSIDE RECORDS SUMMARY | 2024-05-29 02:29 | XMS_ITS | Encounter Summary ---
Author Organization [facility] Address [address] [place] [address] Care Team Providers Care Cnc Grinder Name Role Phone Lukasz Sotelo MD Primary Care Provider [phone] Reason for Visit * Reason Comments Pain every where Pain Leg Pain left leg pain Encounter Details Date Type Department Care Team (Late st Contact Info) Description 07/01/2011 15:[address] [facility] Interventional Pain [address] [place], [place] [id number] Unknown, Provider, Johana Gonzalez MD Brown, Michael B., DO [address] [place], [place] [address] Low back pain; Lumbar facet arthropathy; Degeneration of lumbar or lumbosacral intervertebral disc; Obesity; Acquired spondylolisthesis Social History Tobacco Use Types Packs/Day Years [...] Sign Reading Time Taken Comments Blood Pressure 136/82 07/01/2011 1603 EDT Pulse 80 07/01/2011 1603 EDT Temperature 36.2 ??C (97.2 ??F) 07/01/2011 1452 EDT Respiratory Rate 18 07/01/2011 1603 EDT Oxygen Saturation - - Inhaled Oxygen Concentration - - Weight 129.7 kg (286 lb) 07/01/2011 1452 EDT Height 162.6 cm (5' 4) 07/01/2011 1452 EDT Body Mass Index 49.09 07/01/2011 1452 EDT documented in this encounter Patient Instructions * Patient Instructions* Yamile Armas RN - 07/01/2011 16:02 EDT [facility] [address] [id number] Patient Instructions You have had your bilateral lumbar Facet Steroid Injection. The purpose of this procedure has been to place medication which may help relieve your pain. Steroid may be used to decrease the swelling and nerve irritation which may be causing your pain. The following information should help you over the next few days regarding what you may expect. DO NOT drive a car for the remainder of the day. If you feel sore where the needle(s) entered for the block or develop a flare-up of pain over the next few days, please use ice on the area. You may leave the ice on for up to 20 minutes at a time. Do not use heat, as this may cause swelling. As long as your primary doctor has indicated no restrictions, you may take a mild pain medicine, such as acetaminophen (Tylenol), ibuprofen (Advil, Nuprin, Motrin IB, etc.) or aspirin, if needed. The steroid injection usually takes a few days to become effective. On average, you may notice somerelief in 3 -5 days. However, it may take up to 10 - 14 days to know whether the injection was helpful. If the block causes numbness/weakness, it should wear off within a few hours. If the area that the needle(s) were inserted becomes hot, red, swollen, or increasingly tender, or if you develop a fever (100.5 or greater) or chills along with these symptoms, please call our office immediately. If you develop increasingly severe neck/back pain, continued numbness or weakness of the arms/legs or changes in your bladder or bowel functions, please call our office at once. Instructions for follow-upToday please stay busy/active doing things that would normally cause you pain. Keep track of your hours of relief and your percentage of relief today (0 to 100 , 0 = no relief and 100% being total relief). Separate the pressure and tightness that we caused you from your regular pain and see what your relief is. Call us back tomorrow with this information. Procedure end time:___4pm Pain relief start time Returned to baseline pain If you have any questions about your block, please call Patient Education Topic: Method: Handout and Verbal Taught to: Patient Barriers: None Outcomes: independent and verbalized understanding Signature:YAMILE ARMAS RN documented in this encounter Progress Notes * Jamar King - 07/01/2011 1555 EDT Patient Name: Jes Bello : 1960 Date of Service: 07/01/2011 Cleaner And Trimmer: Johana Gonzalez MD Trapper Bird: Jamar King DO Procedure: Lumbar facet joint injection at bilateral L4-L5 and L5-S1 Interval History: Ms. Bello presents at the request of Jane Jules for evaluation and treatment of her chronic back pain. She has had some degree of back over the last 15 or so years that began without any particular injury or inciting event. Her pain has gotten worse over the last 6 months and over the last 3-4 months she began to have pain radiating into her left leg. Pain travels downbuttocks and into left postero-lateral thigh. Intermittently the pain travels below her left knee. Her pain is exacerbated with standing, sitting in a recliner for a long time and lumbar extension. Walking partially alleviates the pain. She has tried several mediations including meloxicam and Tylenol without relief. Naproxen and ibuprofen have been helpful as has Flexeril. She has been on opioid medications for short period but has reservations about using this type of medication because of concerns that it is detrimental to her immune function. In terms of non-pharmacologic management done PT twice without relief. She has seen a chiropractor in the pastas well as acupuncture and massage which have helped in the past. She has not had any injections. The patient???s chronic pain has negatively impacted level of function, resulting in a lower general activity level. Current outpatient prescriptions ordered prior to encounter Medication Sig Dispense Refill ??? cyclobenzaprine (FLEXERIL) 10 mg tablet Take 10 mg by mouth 3 times daily as needed. ??? metformin (GLUCOPHAGE) 500 mg tablet Take 500 mg by mouth daily. ??? modafinil (PROVIGIL) 200 mg tablet Take 200 mg by mouth 2 times daily. ??? meloxicam (MOBIC) 15 mg tablet Take 15 mg by mouth daily. ??? levothyroxine (SYNTHROID) 175 mcg tablet Take 175 mcg by mouth daily. ??? buPROPion (WELLBUTRIN XL) 300 mg XL tablet Take 300 mg by mouth daily. ??? metoprolol (LOPRESSOR) 25 mg tablet Take 25 mg by mouth daily. ??? clonAZEPAM (KLONOPIN) 1 mg tablet Take 1 mg by mouth 2 times daily. ??? topiramate (TOPAMAX) 100 mg tablet Take 200 mg by mouth 2 times daily. ??? esomeprazole (NEXIUM) 20 mg capsule Take 40 mg by mouth 2 times daily. ??? montelukast (SINGULAIR) 10 mg tablet Take 10 mg by mouth daily. ??? duloxetine (CYMBALTA) 60 mg capsule Take 60 mg by mouth 2 times daily. ??? BIOTIN ORAL Take by mouth. ??? HYALURONATE SODIUM (HYALURONIC ACID ORAL) Take by mouth. ??? SOY ISOFLAVONE (SOY ORAL) Take by mouth. ??? PRASTERONE, DHEA, (DHEA ORAL) Take by mouth. ??? METHYLSULFONYLMETHANE ORAL Take by mouth. ??? VITAMIN B COMPLEX (B COMPLEX 50 ORAL) Take by mouth. Past Medical History Diagnosis Date ??? Arthritis ??? Blind right eye ??? Sleep apnea ??? Diabetes ??? Asthma ??? Hypothyroidism ??? Hypertension ??? Depression ??? Anxiety ??? Overactive bladder ??? Stomach problems ??? Sleeping difficulty ??? Breathing problem ??? Memory problem Allergies: No Known Allergies ROS: Patient reports low back pain as pertinent positives. CONSTITUTIONAL: Patient does not report fevers, nausea, vomiting. NEURO/EYES: Patient does not report headaches, dizziness, or visual changes. HEME: Patient does not report any known coagulopathies. PULM/CARDIAC: Patient does not report chest pain. Has SOB associate with asthma. GI/: Patient does not report bowel or bladder incontinence but dose have overactive bladder PSYCH: reports depression Physical Examination: Vital signs: Patient Vitals in the past 24 hrs: BP Temp Temp src Pulse Resp Height Weight 07/01/11 1452 140/72 mmHg 36.2 ??C (97.2 ??F) Tympanic 83 16 162.6 cm (64) 129.729 kg (286 lb) PE: Patient is female. Patient is in NAD. Alert and oriented x3 and appropriate in conversation today. Obese, poor hygiene. Deconditioned Unlabored breathing. Non-antalgic gait. Ambulates without an assist device. Lumbar paraspinal tenderness and tenderness over sacroiliac joints. Negative FABERs Increased pain with facet loading and with lumbar flexion. Negative seated SLR. No focal sensory or motor deficits in bilateral lower extremities. Lumbar Spine Films in 05/2011: Notable for grade 2 anterolisthesis of L4 on L5, multilevel degenerative disc disease and lumbar facet arthropathy. Assessment: Encounter Diagnoses Name Primary? Low back pain ??? Lumbar facet arthropathy ??? Degeneration of lumbar or lumbosacral intervertebral disc ??? Obesity ??? Acquired spondylolisthesis Plan: Proceed with diagnostic and therapeutic facet joint injections at bilateral L4- L5 and L5-S1 Follow up: as needed for further evaluation Procedure: The patient gave informed written consent [...] The skin and subcutaneous tissue over the bilateral L4-L5 and L5-S1 facet joints was anesthetized with 2% lidocaine. A 22 guage 5.0 inch spinal needle was inserted under fluoroscopic guidance using coaxial technique into each of the aforementioned facet joints. After negative aspiration, each joint was injected with 1mls 0.25% Bupivacaine and 40 mg Depo-Medrol. There were no paresthesias during needle placement and aspiration was negative at all times. The patient tolerated the procedure well, there were no apparent complications, and she was discharged in stable condition. Written and verbal discharge instructions were reviewed with the patient prior to discharge. Attending attestation: I saw and examined the patient with the resident/fellow. I agree with the findings and plan of care documented in the resident's/fellow's note. In addition, I was present and participated during the entire procedure. Johana Gonzalez MD * Dai Stephenson - 07/01/2011 1457 EDT [facility] Rooming Note Does patient have a Fast Brim Pouncer? yes Is patient NPO? (Solids since midnight [...] ? no Other: documented in this encounter Miscellaneous Notes * Scanned Note-Null - Boom, Sales And Service Consultant - 07/19/2011 1427 EDT documented in this encounter Plan of Treatment Not on file documented as of this encounter Visit Diagnoses Diagnosis Low back pain Lumbago Lumbar facet arthropathy Lumbosacral spondylosis without myelopathy Degeneration of lumbar or lumbosacral intervertebral disc Obesity Obesity, unspecified Acquired spondylolisthesis documented in this encounter Care Teams Cnc Grinder Relationship Specialty Start Date End Date Lukasz Sotelo MD [address] [place] [address] PCP - General 05/04/11 10/07/14 documented as of this encounter
--- OUTSIDE RECORDS SUMMARY | 2024-05-29 02:29 | XMS_ITS | Encounter Summary ---
Author Organization [facility] Address [address] [place] [address] Care Team Providers Care Cutter Plastics Rolls Name Role Phone Lukasz Sotelo MD Primary Care Provider [phone] Reason for Visit * Reason Comments Back Pain Encounter Details Date Type Department Care Team (Latest Contact Info) Description 11/10/2011 14:30 EST Office Visit [facility] Spine Program - [place] [address] Jane Reyna PA-C Low back pain; Lumbar radiculopathy Social History Tobacco Use Types Packs/Day Years Used Date Smoking Tobacco: Never Alcohol Use Standard Drinks/Week Comments No 0 (1 standard drink = 0.6 oz pur e alcohol) Sex and Gender Information Value Date Recorded Sex Assigned at Not on file Gender Identity Not on file Sexual Orientation Not on file documented as of this encounter Progress Notes * Jane Jules PA - 11/10/2011 1506 EST Mrs Bello is a 51-year-old female that presents 2 weeks status post a left L5- S1 TFESI. She notes a good amount of relief of her left lateral leg pain but occasionally feels a catching sensation in the lateral thigh. At this time she continues to experience lower back pain in the L4-S1 midline region. She has had L4-5 and L5-S1 facet joints bilaterally performed with good relief. Upright AP and lateral recumbent flexion-extension radiographs of the lumbar spine reveal facet arthropathy most pronounced L3-S1. There is a grade 2 anterolisthesis of L4 on L5 with a slight change between flexion and extension. Lumbar MRI reveals a grade 1 anterolisthesis of L4 over L5. There is decreased disk signal at L4-5 and L5-S1. At L4-5 there is facet hypertrophy with increased fluid signal and ligamentum flavum thickening with a broad-based disk bulge resulting in bilateral-lateral recess narrowing and mild to moderate central stenosis. There is mild to moderate bilateral neural foraminal narrowing. At L5- S1 there is mild disk bulge with mild bilateral-lateral recess narrowing. ASSESSMENT AND PLAN: A 51-year-old female with facetogenic low back pain and some dynamic instability at L4-5 with a left lumbar radiculopathy in the L5 distribution. Her lumbar radiculopathy has improved with a recent left L5-S1 TFESI; however, she continues to experience lower back pain. We discussed treatment options including lumbar traction, acupuncture, medial branch blocks with radiofrequency ablation. She seemed to understand these options and at this time would like to try lumbar traction and acupuncture. She will follow up as needed with activities as tolerated. I spent a total of 15 minutes in face to face time with this patient today and 15 minutes of that time was spent counseling the patient on the risks and treatment options for low back pain and lumbarradiculopathy. documented in this encounter Plan of Treatment Not on file documented as of this encounter Visit Diagnoses Diagnosis Low back pain Lumbago Lumbar radiculopathy Thoracic or lumbosacral neuritis or radiculitis, unspecified documented in this encounter Historical Medications * This list may reflect changes made after this encounter. Medication Sig Dispensed Refills Start Date End Date UNABLE TO FIND 20 Drops daily. Med Name: cellfood added in this encounter Care Teams Cutter Plastics Rolls Relationship Specialty Start Date End Date Lukasz Sotelo MD [address] [place] [address] PCP - General 05/04/11 10/07/14 documented as of this encounter
--- OUTSIDE RECORDS SUMMARY | 2024-05-29 02:29 | XMS_ITS | Encounter Summary ---
Author Organization [facility] Address [address] [place] [address] Care Team Providers Care Life Scientists Name Role Phone Lukasz Sotelo MD Primary Care Provider Encounter Details Date Type Department Care Team (Late st Contact Info) Description 05/06/2011 Results Only Imaging [facility] Spine Program [place] [address] [address] Jane Reyna PAMalloryC Social History Tobacco Use Types Packs/Day Years Used Date Smoking Tobacco: Never Assessed Sex and Gender Information Value Date Recorded Sex Assigned at Not on file Gender Identity Not on file Sexual Orientation Not on file documented as of this encounter Plan of Treatment Pending Results Name Type Priority Associated Diagnoses Date /Time OUTSIDE CD - MRI NEURO Imaging 16:36 EDT OUTSIDE CD - MRI NEURO Imaging 16:36 EDT documented as of this encounter Visit Diagnoses Not on filedocumented in this encounter Care Teams Life Scientists Relationship Specialty Start Date End Date Lukasz Sotelo MD [address] [place] [address] PCP - General 05/04/11 10/07/14 documented as of this encounter
--- OUTSIDE RECORDS SUMMARY | 2024-05-29 02:29 | XMS_ITS | Encounter Summary ---
Author Organization [facility] Address [address] [place] [address] Care Team Providers Care Assembling Machine Operator Name Role Phone Lukasz Sotelo MD Primary Care Provider [phone] Reason for Referral * Consult, Test and Treat (Routine/Next Available) - Closed Specialty Diagnoses / Procedures Referred By Darvin segovia Referred To Contact Diagnoses Low back pain Lumbar radiculopathy Jane Reyna PA-C [address] [place] [address] Referral ID Status Reason Start Date Expiration Date V isits Requested Visits Authorized [id number] Closed Specialty Services Required 02/03/2012 1 1 Question Answer Reason for Request: LUMBAR TRACTION; low back pain, lumbar radiculopathy Encounter Details Date Type Department Care Team (Late st Contact Info) Description 02/03/2012 Orders Only [facility] Spine Program [place] [address] Jane Reyna PA-C Low back pain; Lumbar [...] as of this encounter Plan of Treatment Scheduled Referrals Name Type Priority Associated Diagnoses Orde r Schedule AMB CONSULT PHYSICAL THERAPY Outpatient Referral Routine Low back pain Lumbar radiculopathy Ordered: 02/03/2012 documented as of this encounter Visit Diagnoses Diagnosis Low back pain Lumbago Lumbar radiculopathy Thoracic or lumbosacral neuritis or radiculitis, unspecified documented in this encounter Care Teams Assembling Machine Operator Relationship Specialty Start Date End Date Lukasz Sotelo MD [address] [place] [address] PCP - General 05/04/11 10/07/14 documented as of this encounter
--- OUTSIDE RECORDS SUMMARY | 2024-05-29 02:29 | XMS_ITS | Encounter Summary ---
Author Organization [facility] Address [address] [place] [address] Care Team Providers Care Ekg Monitor Name Role Phone Lukasz Sotelo MD Primary Care Provider [phone] Reason for Visit * Reason Onset Date Comments Advice Only 01/10/2013 Encounter Details Date Type Department Care Team (Late st Contact Info) Description 01/10/2013 Telephone [facility] Foot & Ankle Program - [address] [place], [place] [id number] Tara Owens [address] [place] [address] Advice Only Social History Tobacco Use Types [...] * Telephone Encounter - Tara Owens - 01/10/2013 1536 EDT Jes called wanting a order for lumbar traction I talked with Moisés Martinez about this and he advised To try it in PT for two weeks and if it helps the we would Write a order for one. I called Jes to let her know this She ask me to call Jane PT. [phone] and advise her of this. Tara Owens 01/10/2013 15:42 documented in this encounter Plan of Treatment Not on file documented as of this encounter Visit Diagnoses Not on filedocumented in this encounter Care Teams Ekg Monitor Relationship Specialty Start Date End Date Lukasz Sotelo MD [address] [place] [address] PCP - General 05/04/11 10/07/14 documented as of this encounter
--- OUTSIDE RECORDS SUMMARY | 2024-05-29 02:29 | XMS_ITS | Encounter Summary ---
Author Organization [facility] Address [address] [place] [address] Care Team Providers Care Machine Cutter Name Role Phone Ramona Meyers MARIANNE Primary Care Provider + Reason for Visit * Reason Onset Date Comments Results 12/04/2014 Results 12/19/2014 Encounter Details Date Type Department Care Team (Late st Contact Info) Description 12/04/2014 Telephone [facility] Interventional Pain [address] [place], [place] [id number] Florence Osuna, RN Results; Results Social History Tobacco Use Types Packs/Day Years Used Date Smoking Tobacco: Never Alcohol Use Standard Drinks/Week Comments No 0 (1 standard drink = 0.6 oz pur e alcohol) Sex and Gender Information Value Date Recorded Sex Assigned at Not on file Gender Identity Not on file Sexual Orientation Not on file documented as of this encounter Miscellaneous Notes * Telephone Encounter - Gillian Zheng - 12/22/2014 1028 EST Called pt and left message for pt to call back to schedule an appt. * Telephone Encounter - Sarah Barrios RN - 12/19/2014 1616 EST Returned call to patient, she states she is having good relief on right side but still has pain andwould like the left lumbar facet injections. Patient asking for only and advised it make take longer to schedule. Per 's note, she may return to have the left side injected. Will forward to [facility] for scheduling left lumbar facet injection with . * Telephone Encounter - Samara Strong - 12/19/2014 1523 EST Patient requesting another injection with . Patient stating that the left side is giving her a lot of trouble and slippage. Patient wants to get the left side done shai. What are her options? * Telephone Encounter - Samara Strong - 12/08/2014 0711 EST Jes left a message with PASS ON 2.14 at 2:33am. She lost our number but is calling in with results of 90-100% relief. No sign of redness or infection. * Telephone Encounter - Florence Osuna RN - 12/04/2014 1414 EST RN called patient for results of injection. Left a message to call back with this info. Date and type of procedure:12/03/14 facet joint injections at right L4-L5 and L5-S1 Provider:Kayla Hours of relief:12+ % of relief:100% relief Next appointment: prn Plan: per Dr Avelar note Proceed with diagnostic and therapeutic facet joint injections at right L4-L5 and L5-S1 Follow up: within 24 hrs by telephone to report results of diagnostic injection and as needed to repeat left side She should also make an appt with ortho spine to discuss surgical options documented in this encounter Plan of Treatment Not on file documented as of this encounter Visit Diagnoses Not on filedocumented in this encounter Care Teams Machine Cutter Relationship Specialty Start Date End Date Ramona Meyers FNP PCP - General 10/08/14 03/22/21 documented as of this encounter
--- OUTSIDE RECORDS SUMMARY | 2024-05-29 02:29 | XMS_ITS | Encounter Summary ---
Author Organization [facility] Address [address] [place] [address] Care Team Providers Care Darkroom Worker Name Role Phone Lukasz Sotelo MD Primary Care Provider [phone] Reason for Visit * Reason Onset Date Comments Follow-up 08/30/2011 Encounter Details Date Type Department Care Team (Late st Contact Info) Description 08/30/2011 Telephone [facility] Spine Program [place] [address] [place] [address] Jane Reyna PA-C Follow-up Social History Tobacco Use Types Packs/Day Years Used Date Smoking Tobacco: Never Alcohol Use Standard Drinks/Week Comments No 0 (1 standard drink = 0.6 oz pur e alcohol) Sex and Gender Information Value Date Recorded Sex Assigned at Not on file Gender Identity Not on file Sexual Orientation Not on file documented as of this encounter Miscellaneous Notes * Telephone Encounter - Kb Yip - 08/30/2011 1610 EST Patient missed appointment on 08/30 due to difficulty obtaining a ride. She would like to do a phonefollow up for the injection she received on 08/18. She reports that the shot helped her back pain and is now only experiencing pain on the lateral posterior portion of her left leg, from the hip to the knee. She experiences pain upon movement which ranges from a 3-5. I told her Jane Jules would call her by the end of the week or early next week as to follow- up. Please advise. documented in this encounter Plan of Treatment Not on file documented as of this encounter Visit Diagnoses Not on filedocumented in this encounter Care Teams Darkroom Worker Relationship Specialty Start Date End Date Lukasz Sotelo MD [address] [place] [address] PCP - General 05/04/11 10/07/14 documented as of this encounter
--- OUTSIDE RECORDS SUMMARY | 2024-05-29 02:29 | XMS_ITS | Encounter Summary ---
Author Organization Health system Address [address] [place] [address] Care Team Providers Care Kiln Transfer Operator Name Role Phone Lukasz Sotelo MD Primary Care Provider [phone] Reason for Visit * Reason Onset Date Comments Appointment Related 09/29/2011 Encounter Details Date Type Department Care Team ([facility] st Contact Info) Description 09/29/2011 Telephone [facility] Spine Program [place] [address] [address] Jane Reyna PA-C Appointment Related Social History Tobacco Use Types Packs/Day Years [...] * Telephone Encounter - Kb Yip - 09/29/2011 1613 EST Patient called because she missed her injection on 09/23/11 and rescheduled for 10/27/11. Her follow up was rescheduled as well for 11/10/11. documented in this encounter Plan of Treatment Not on file documented as of this encounter Visit Diagnoses Not on filedocumented in this encounter Care Teams Kiln Transfer Operator Relationship Specialty Start Date End Date Lukasz Sotelo MD [address] [place] [address] PCP - General 05/04/11 10/07/14 documented as of this encounter
--- OUTSIDE RECORDS SUMMARY | 2024-05-29 02:29 | XMS_ITS | Encounter Summary ---
Author Organization [facility] Address [address] [place] [address] Care Team Providers Care Steel Post Installer Name Role Phone Lukasz Sotelo MD Primary Care Provider [phone] Encounter Details Date Type Department Care Team (Late st Contact Info) Description 01/14/2013 Orders Only [facility] Spine Program - [address] [place], [place] [id number] Moisés Martinez PA-C [address] [facility] [place] [address] Social History Tobacco Use Types Packs/Day Years [...] on filedocumented in this encounter Care Teams Steel Post Installer Relationship Specialty Start Date End Date Lukasz Sotelo MD [address] [place], [place] [address] PCP - General 05/04/11 10/07/14 documented as of this encounter
--- OUTSIDE RECORDS SUMMARY | 2024-05-29 02:29 | XMS_ITS | Encounter Summary ---
Author Organization [facility] Address [address] [place] [address] Care Team Providers Care Oil Well Perforator Operator Name Role Phone Lukasz Sotelo MD Primary Care Provider [phone] Reason for Visit * Reason Comments Leg Pain left leg pain Encounter Details Date Type Department Care Team (Latest Contact Info) Description 08/18/2011 14:30 EDT Office Visit [facility] Interventional Pain [address] [place] [address] Johana Gonzalez MD Low back pain; Lumbar radicular pain; Acquired spondylolisthesis; Degenerative disc disease; Facet arthropathy Discharge Disposition: Auto Discharge Social History Tobacco Use Types Packs/Day Years [...] Sign Reading Time Taken Comments Blood Pressure 148/95 08/18/2011 1515 EDT Pulse 77 08/18/2011 1515 EDT Temperature 36.9 ??C (98.5 ??F) 08/18/2011 1443 EDT Respiratory Rate 18 08/18/2011 1515 EDT Oxygen Saturation - - Inhaled Oxygen Concentration - - Weight 134.3 kg (296 lb) 08/18/2011 1443 EDT Height 162.6 cm (5' 4) 08/18/2011 1443 EDT Body Mass Index 50.81 08/18/2011 1443 EDT documented in this encounter Patient Instructions * Patient Instructions* Keyla Osuna RN - 08/18/2011 15:16 EDT [facility] [place] [phone] Patient Instructions You have had your left lumbar Transforaminal Epidural Steroid Injection. The purpose of this procedure has been to place medication which may help relieve your pain. Steroid may be used to decrease the swelling and nerve irritation which may be causing your pain. The following information should help you over the next few days regarding what you may expect. Please take it easy for the rest of today. DO NOT drive a car for the [...] call our office at once. Instructions for follow-up If you have any questions about your block, please call Patient Education Topic: left lumbar Transforaminal Epidural Steroid Injection Method: Handout and Verbal Taught to: Patient Barriers: None Outcomes: independent Signature: KEYLA OSUNA RN documented in this encounter Discharge Disposition Disposition Code Departure Means Destination Auto Discharge documented in this encounter Progress Notes * Johana Gonzalez - 08/18/2011 1514 EDT Patient Name: Jes Bello : 1960 Date of Service: 08/18/2011 Information Technology Director: Johana Gonzalez MD Operations Liaison: none Procedure: Transforaminal epidural steroid injection at the left L5-S1 foramen Interval History: Ms. Bello presents at the request of Jane Jules for evaluation and treatment of her chronic low back pain and leg pain. She is status post lumbar facet injections on 07/01/2011 with good relief of her low back pain. Unfortunately the patient has had persistent pain radiating down the lateral aspect of her left leg. Currently rates her pain a 3/10 in severity. Returns today with request that I get rid of the leg pain. ROS: Negative for any fever, chills, nausea/vomiting, headaches, chest pain, palpitations, shortness of breath, bladder/bowel incontinence, easy bruising, bleeding, anti-coagulation or known recent infections. Physical Exam: Vital signs: BP 150/85 Pulse 81 Temp(Src) 36.9 ??C (98.5 ??F) (Tympanic) Resp 18 Ht 162.6 cm (64) Wt 134.265 kg (296 lb) BMI 50.81 kg/m2 GENERAL: Obese. Alert and oriented x3. Appears in no acute distress. Anxious affect. Deconditioned SKIN: No rashes or skin breakdown. PULMONARY: Unlabored breathing. EXTREMITIES: No clubbing, cyanosis or edema. MUSCULOSKELETAL: Assessment: 50 year old woman with anterolisthesis, facet arthropathy and an L4- 5 central disc bulge. Pain in a left L5 distribution. Low back pain [724.2A] Lumbar radicular pain [724.4AV] Acquired spondylolisthesis [738.4] Degenerative disc disease [722.6A] Facet arthropathy [721.90X] Plan: Proceed with diagnostic transforaminal epidural steroid injection at left L5-S1. Follow up: with previously made appointment with Jane Jules. PROCEDURE: Patient with a large number of questions regarding dose and choice of injected steroid, local anesthetic preservatives and contrast dye. These were discussed in some detail. The patient gave informed written consent to proceed with this procedure following a detailed discussion of the risks and benefits associated with transforaminal epidural steroid injection in the lumbar spine. The patient was then placed in the prone position, the skin over the lumbosacral area wasprepped with chlorhexadine, and the site was draped with sterile towels. Strict sterile technique was maintained throughout the procedure. A cabezas moment was performed with full staff present to identify the patient, verify the procedure being performed, and review allergies. Flouoroscopy was used to visualize the left L5-S1 neuroforamen. The skin and subcutaneous tissue over this level was anesthetized by infiltration of 2% lidocaine. A 22 guage 5.0 inch spinal needle was inserted under fluoroscopic guidance using coaxial technique. The needle was slowly advanced by pos terolateral approach to the superior aspect of the foramen. Fluoroscopic images in the AP and lateral views were taken to confirm final needle tip position in the distal foramen. No parasthesias occurred during needle insertion and aspiration was negative. Contrast dye was injected under live fluoroscopy and revealed good spread along the Lt L5 nerve root with no evidence of intravascular or intrathecal uptake. After negative aspiration, 80 mg Depo- Medrol and 1 ml 0.25% Bupivacaine was injected. The needle was then flushed and withdrawn. The patient tolerated the procedure well, there were noapparent complications, and she was discharged in stable condition. Written and verbal discharge instructions were reviewed with the patient prior to discharge. * Dai Stephenson - 08/18/2011 1448 EDT [facility] Rooming Note Does patient have a Wash Oil Pump Operator Helper? Peter will pick patient up Is patient NPO? 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
--- OUTSIDE RECORDS SUMMARY | 2024-05-29 02:29 | XMS_ITS | Encounter Summary ---
Author Organization [facility] Address [address] [place] [address] Care Team Providers Care Cable Maintainer Name Role Phone Lukasz Sotelo MD Primary Care Provider [phone] Reason for Visit * Reason Onset Date Comments Appointment Related 09/05/2011 Encounter Details Date Type Department Care Team ([facility] st Contact Info) Description 09/05/2011 Telephone [facility] Spine Program - [address] [place], [place] [phone] Jane Reyna PA-C Appointment Related Social History [...] * Telephone Encounter - Kb Yip - 09/05/2011 1601 EST Left a message with the time and date of injection and follow up appointment. Instructions/educations was provided verbally and will send instructions in writing in mail. documented in this encounter Plan of Treatment Not on file documented as of this encounter Visit Diagnoses Not on filedocumented in this encounter Care Teams Cable Maintainer Relationship Specialty Start Date End Date Lukasz Sotelo MD [address] [place], [place] [address] PCP - General 05/04/11 10/07/14 documented as of this encounter
--- OUTSIDE RECORDS SUMMARY | 2024-05-29 02:29 | XMS_ITS | Encounter Summary ---
Author Organization [facility] Address [address] [place] [address] Care Team Providers Care Blue Print Control Clerk Name Role Phone Lukasz Sotelo MD Primary Care Provider [phone] Reason for Referral * Consult, Test and Treat (Routine/Next Available) - Closed Specialty Diagnoses / Procedures Referred By Darvin segovia Referred To Contact Diagnoses Low back pain Selma Mcintyre PA-C [address] [place] [phone] Referral ID Status Reason Start Date Expiration Date V isits Requested Visits Authorized [id number] Closed Specialty Services Required 01/15/2013 1 1 Question Answer Reason for Request: low back pain Comments Hx of low back pain and possibel lumbar radiculopathy. Care to focus on traction therapy. Encounter Details Date Type Department Care Team (Late st Contact Info) Description 01/15/2013 Orders Only [facility] Spine Program - [address] [address] Selma Mcintyre PA-C [address] [place] [phone] Low back pain (Primary Dx) Social History Tobacco Use Types Packs/Day Years [...] THERAPY Outpatient Referral Routine Low back pain Ordered: 01/15/2013 documented as of this encounter Visit Diagnoses Diagnosis Low back pain- Primary Lumbago documented in this encounter Care Teams Blue Print Control Clerk Relationship Specialty Start Date End Date Lukasz Sotelo MD [address] [place] [address] PCP - General 05/04/11 10/07/14 documented as of this encounter
--- OUTSIDE RECORDS SUMMARY | 2024-05-29 02:29 | XMS_ITS | Encounter Summary ---
Author Organization [facility] Address [address] [place] [address] Care Team Providers Care Hotbed Transfer Operator Name Role Phone Lukasz Sotelo MD Primary Care Provider [phone] Reason for Visit * Reason Onset Date Comments Back Pain 09/09/2011 Encounter Details Date Type Department Care Team (Late st Contact Info) Description 09/09/2011 Telephone [facility] Spine Program [place] [address] [place] [address] Jane Reyna PA-C Back Pain Social History [...] Telephone Encounter - Jane Jules PA - 09/09/2011 1052 EST Jes had an episode of pain originating in her low back at L4-5 that radiating up into her mid-back and then back down. This problem has now resolved. She was wondering if at the time I could prescribe her a stronger pain medication. She did take Mobic and a muscle relaxant with some relief. I manzo ggested that she come in to be re-evaluated but states she has no transportation. I suggested if her pain continues that she have a steroid injection. I recommended that if this problems occurs againthat she see her PCP for chronic pain control and/or make a new appointment for me to evaluate her. documented in this encounter Plan of Treatment Not on file documented as of this encounter Visit Diagnoses Not on filedocumented in this encounter Care Teams Hotbed Transfer Operator Relationship Specialty Start Date End Date Lukasz Sotelo MD [address] [place] [address] PCP - General 05/04/11 10/07/14 documented as of this encounter
--- OUTSIDE RECORDS SUMMARY | 2024-05-29 02:29 | XMS_ITS | Encounter Summary ---
Author Organization [facility] Address [address] [place] [address] Care Team Providers Care Aoc Aadc Operations Staff Officer Name Role Phone Lukasz Sotelo MD Primary Care Provider [phone] Reason for Visit * Reason Onset Date Comments Advice Only 01/25/2012 Encounter Details Date Type Department Care Team (Late st Contact Info) Description 01/25/2012 Telephone [facility] Interventional Pain [address] [place] [address] Johana Gonzalez MD Advice Only Social History Tobacco Use Types [...] * Telephone Encounter - Gillian Zheng - 01/27/2012 0927 EDT Called pt and left message for her to back to book an appt. * Telephone Encounter - Sarah Barrios RN - 01/25/2012 1658 EDT Left message with patient will schedule injection and she should contact Jane Jules or her PCP for PT order. * Telephone Encounter - HosfordJohana cantu - 01/25/2012 1343 EDT Patient can return for lumbar facet injections if she would like. It is also appropriate for her to start PT if this was advised by Jane Jules or her PCP. Thank you. * Telephone Encounter - Sarah Barrois RN - 01/25/2012 1323 EDT Returned patient's call, patient has good relief fromtfesi- leg pain but not from back pain. She iswondering is she can have another injection and/or start physical therapy. Was suppose to have a gravity chair as advised by Jane Jules but couldn't find one to fit. * Telephone Encounter - Roxy Valles - 01/25/2012 1243 EDT Pt. Would like to be scheduled for an injection in her back and believed she had an appt.almarianne made, however I can't find anything scheduled for this patient and she doesn't know the name of the procedure she was suppose to be booked for. documented in this encounter Plan of Treatment Not on file documented as of this encounter Visit Diagnoses Not on filedocumented in this encounter Care Teams Aoc Aadc Operations Staff Officer Relationship Specialty Start Date End Date Lukasz Sotelo MD [address] [place] [address] PCP - General 05/04/11 10/07/14 documented as of this encounter
--- OUTSIDE RECORDS SUMMARY | 2024-05-29 02:29 | XMS_ITS | Encounter Summary ---
Author Organization [facility] Address [address] [place] [address] Care Team Providers Care Nursery Worker Name Role Phone Lukasz Sotelo MD Primary Care Provider [phone] Reason for Visit * Reason Onset Date Comments Appointment Related 03/06/2012 Encounter Details Date Type Department Care Team (Late st Contact Info) Description 03/06/2012 Telephone [facility] Interventional Pain [address] [place] [address] Johana Gonzalez MD Appointment Related Social History Tobacco Use Types [...] encounter Miscellaneous Notes * Telephone Encounter - Katalina Dumont - 03/06/2012 1542 EDT I returned the patient's call with regard to her meds prior to her procedure.She seemed a bit vagueas to her current med list. * Telephone Encounter - Azeb Spears - 03/06/2012 1532 EDT Patient is asking if she needs to stop taking the supplement before her appointment on 03/13/12 for lumbar injection. documented in this encounter Plan of Treatment Not on file documented as of this encounter Visit Diagnoses Not on filedocumented in this encounter Care Teams Nursery Worker Relationship Specialty Start Date End Date Lukasz Sotelo MD [address] [place] [address] PCP - General 05/04/11 10/07/14 documented as of this encounter
--- OUTSIDE RECORDS SUMMARY | 2024-05-29 02:29 | XMS_ITS | Encounter Summary ---
Author Organization [facility] Address [address] [place] [address] Care Team Providers Care Dining Services Director Name Role Phone Lukasz Sotelo MD Primary Care Provider Reason for Visit * Reason Onset Date Comments Advice Only 01/14/2013 Encounter Details Date Type Department Care Team (Late st Contact Info) Description 01/14/2013 Telephone [facility] Foot & Ankle Program - [address] [place] [address] Tara Owens [address] [place] [address] Advice Only Social History Tobacco Use Types [...] * Telephone Encounter - Tara Owens - 01/14/2013 1432 EDT Shruthi from [facility] at [facility] called wanting A pt referral for Jes she has an appointment on MonJanuary 16 I called and talked with Jes there has been no changes in her symptoms Since she was last seen. Tara Owens 01/14/2013 14:41 documented in this encounter Plan of Treatment Not on file documented as of this encounter Visit Diagnoses Not on filedocumented in this encounter Care Teams Dining Services Director Relationship Specialty Start Date End Date Lukasz Sotelo MD [address] [place] [address] PCP - General 05/04/11 10/07/14 documented as of this encounter
--- OUTSIDE RECORDS SUMMARY | 2024-05-29 02:29 | XMS_ITS | Encounter Summary ---
Author Organization [facility] Address [address] [place] [address] Care Team Providers Care Principal Product Manager Name Role Phone Lukasz Sotelo MD Primary Care Provider [phone] Reason for Visit * Reason Onset Date Comments Other 12/03/2013 Encounter Details Date Type Department Care Team (Late st Contact Info) Description 12/03/2013 Telephone [facility] Pediatric Genetics - [facility] [address] [place], [place] [id number] Brigette Butt, MS [address] [place], [place] [id number] Other Social History Tobacco Use Types Packs/Day Years Used Date Smoking Tobacco: Never Alcohol Use Standard Drinks/Week Comments No 0 (1 standard drink = 0.6 oz pur e alcohol) Sex and Gender Information Value Date Recorded Sex Assigned at Not on file Gender Identity Not on file Sexual Orientation Not on file documented as of this encounter Miscellaneous Notes * Telephone Encounter - Geeta Butt, MS - 12/03/2013 1044 EST Jes called looking for information regarding genetic testing for Alzheimer Disease due to her family history (paternal cousin, etc). I explained that a family member with the condition would be thefirst person tested. If any mutation is identified in that person, then she could have testing. Shewas going to contact her cousin in [place] to see if she would do genetic testing. documented in this encounter Plan of Treatment Not on file documented as of this encounter Visit Diagnoses Not on filedocumented in this encounter Care Teams Principal Product Manager Relationship Specialty Start Date End Date Lukasz Sotelo MD [address] [place] [address] PCP - General 05/04/11 10/07/14 documented as of this encounter
--- OUTSIDE RECORDS SUMMARY | 2024-05-29 02:29 | XMS_ITS | Encounter Summary ---
Author Organization [facility] Address [address] [place] [address] Care Team Providers Care Strike Plate Attacher Name Role Phone Lukasz Sotelo MD Primary Care Provider [phone] Reason for Referral * Consult (Routine) - Closed Specialty Diagnoses / Procedures Referred By Darvin segovia Referred To Contact Pain Medicine Diagnoses Low back pain Jane Reyna PA-C [address] [place] [address] [facility] [address] [place] [address] Referral ID Status Reason Start Date Expiration Date V isits Requested Visits Authorized [id number] Closed Specialty Services Required 06/07/2011 1 1 Question Answer Reason for Request: L4-5, L5-S1 facet joint injections Reason for Visit * Reason Comments Back Pain Encounter Details Date Type Department Care Team (Latest Contact Info) Description 06/07/2011 10:00 EDT Office Visit [facility] Spine Program [place] [address] Jane Reyna PA-C Low back [...] - Inhaled Oxygen Concentration - - Weight 136.1 kg (300 lb) 06/07/2011 0953 EDT Height 162.6 cm (5' 4) 06/07/2011 0953 EDT Body Mass Index 51.49 06/07/2011 0953 EDT documented in this encounter Progress Notes * Jane Jules PA - 06/07/2011 1105 EDT Jes Bello is being seen as a consultation from Dr. Sotelo. Chief Complaint Patient presents with ??? Back Pain Diagnoses of Low back pain and Lumbar radiculopathy were pertinent to this visit. SAVANNAH Andre is a 50-year-old female who presents with low back and left leg pain. She states her low backpain started in her late 30s gradually and without any trauma and her pain increased in intensity within the last 3 to 6 months. Approximately three months ago, she began developing pain in her left leg. This radiates into her bilateral buttocks, but then through the left lateral thigh and sometimes down the lateral lower leg. Standing, sitting in a recliner for a long time and bending backwards exacerbates her pain. Walkingalleviates the pain. She experiences about 50/50 back and left leg pain. She has done PT twice, most recently about a month and a half ago, without much relief. She has seen a chiropractor in the past, initially with relief, but none recently. Acupuncture and massage have helped in the past, but she has not done this recently. She has not had any injections but is interested. She takes meloxicam without relief. Naproxen and ibuprofen have been helpful. Tylenol does not provide relief. Flexeril does help. She has been prescribed narcotic pain medication and states this helps but does not like to use it because she feels that it decreases her immune function. She does have some difficulty with urination in that she states she has an overactive bladder. Thishas been a problem for several years now and occurs intermittently. She does not have any bowel dysfunction. There is no problem list on file for this patient. Past Medical History Diagnosis Date ??? Arthritis ??? Blind right eye ??? Sleep apnea ??? Diabetes ??? Asthma ??? Hypothyroidism ??? Hypertension ??? Depression ??? Anxiety ??? Overactive bladder Past Surgical History Procedure Date ??? Tonsillectomy and adenoidectomy ??? Cholecystectomy ??? Eye surgery right History Substance Use Topics ??? Smoking status: Never Smoker ??? Smokeless tobacco: Not on file ??? Alcohol Use: No History reviewed. No pertinent family history. Current outpatient prescriptions Medication Sig Dispense Refill ??? metformin (GLUCOPHAGE) 500 mg tablet Take [...] (B COMPLEX 50 ORAL) Take by mouth. No Known Allergies Review of Systems Constitutional: Positive for activity change. HENT: Negative. Eyes: Positive for visual disturbance. Respiratory: Negative. Cardiovascular: Negative. Gastrointestinal: Negative. Genitourinary: Positive for frequency. Musculoskeletal: Positive for back pain and arthralgias. Skin: Negative. Neurological: Negative. Hematological: Negative. Psychiatric/Behavioral: Negative. Physical Exam Constitutional: She is oriented to person, place, and time. She appears well- developed and well-nourished. Obese, poorly groomed. HENT: Head: Normocephalic and atraumatic. Eyes: Extraocular motions are normal. Pulmonary/Chest: Effort normal. Musculoskeletal: Palpable tenderness midline lumbosacrum, left and right SI joints. Normal gait. Patient is able to walk on heels and toes without difficulty. Truncal flexion with fingertips to ankles and 15 degrees of truncal extension; truncal extension elicits back pain. 5/5 hip flexion, TA, peroneal strength b/l. 4/5 b/l EHL. Negative FABERS maneuver b/l. Neurological: She is alert and oriented to person, place, and time. 1 right 0 left patellar and 0 achilles reflexes b/l. Lower extremity sensation to light touch is intact b/l. Left straight leg raise at 60 degrees elicits pain in her gluteus. Negative clonus. Babinski is downgoing. Skin: Skin is warm and dry. No rashes, lesions, or hair bandar. Psychiatric: She has a normal mood and affect. Ortho Exam Neurologic Exam Mental Status Oriented to person, place, and time. Cranial Nerves CN III, IV, Extraocular motions are normal. Lumbar MRI (01/18/11) - L4-5 grade 1 anterolisthesis, global disc bulge, moderate/severe facet arthropathy. No significant neuroforaminal narrowing. L4-5 central disc bulge w/o lateral recess or neuroforaminal narrowing bilaterally. AP, lateral, flexion, and extension x-rays of the lumbar spine reveals grade 1 anterolisthesis of L4 on L5 with some reduction in extension. There is disc degeneration and facet arthropathy at L4-5 and L5-S1. Assessment: 50 year old female with discogenic and facetogenic low back pain and left L5 radiculopathy, secondary to L4-5 anterolisthesis with dynamic instability. We discussed various treatment options including PT, chiropractics, acupuncture, neuroleptics, and steroid injections. She would like to proceed with the following plan: Other Orders Placed This Visit Procedure ??? L spine 4 or more views Plan: 1) L4-5, L5-S1 facet joint injections and 2 week f/u 2) Consider left L5-S1 TFESI if leg symptoms do not improve 3) Aquatherapy 4) Activity as tolerated, resume current pain regime. documented in this encounter Plan of Treatment Scheduled Referrals Name Type Priority Associated Diagnoses Orde r Schedule [facility]B CONSULT PAIN CLINIC Outpatient Referral Routine Low back pain Ordered: 06/07/2011 documented as of this encounter Procedures Procedure Name Priority Date/Time Associated Diagnosis Comments L SPINE 4 OR MORE VIEWS Routine 06/07/2011 10:39 EDT Low back pain Lumbar radiculopathy documented in this encounter Results * L SPINE 4 OR MORE VIEWS (06/07/2011 10:39 EDT) Anatomical Region Laterality Modality Other 06/07/2011 10:3 9 EDT 06/07/2011 15:32 EDT Narrative 06/07/2011 15:32 EDT L SPINE 4 OR MORE VIEWS ??Jun 07, 2011 10:39:00 AM Signs and Symptoms/Comments: ??724.2-LOW BACK PAIN-I9 724.4-LUMBAR RADICULOPATHY-I9 low back pain Comparison: MR of the lumbar spine dated 18 January 2011 Findings: AP, upright lateral, lateral flexion and lateral extension views of the lumbar spine were obtained. The fine bony detail is limited by the patient's body habitus. Five lumbar type vertebrae are observed. The vertebral body heights are well-maintained. There is multilevel degenerative disease with narrowing of the intervertebral spaces. There is partial facet arthropathy most pronounced between L3 and S1. There is grade 2 anterolisthesis of L4 on L5 on neutral views. This is not significantly different from MR. There is a slight change in position with flexion may represent some dynamic instability On MRI, there is mild to moderate central canal stenosis at this level. I have personally reviewed the images and the above interpretation and agree with the findings. Procedure Note Deep Knight MD - 06/07/2011 L SPINE 4 OR MORE VIEWS Jun 07, 2011 10:39:00 AM Signs and Symptoms/Comments: 724.2-LOW BACK PAIN-I9 724.4-LUMBAR RADICULOPATHY-I9 low back pain Comparison: MR of the lumbar spine dated 18 January 2011 Findings: AP, upright lateral, lateral flexion and lateral extension views of the lumbar spine were obtained. The fine bony detail is limited by the patient's body habitus. Five lumbar type vertebrae are observed. The vertebral body heights are well-maintained. There is multilevel degenerative disease with narrowing of the intervertebral spaces. There is partial facet arthropathy most pronounced between L3 and S1. There is grade 2 anterolisthesis of L4 on L5 on neutral views. This is not significantly different from MR. There is a slight change in position with flexion may represent some dynamic instability On MRI, there is mild to moderate central canal stenosis at this level. I have personally reviewed the images and the above interpretation and agree with the findings. Jane Reyna PA-C [facility] ORDERABLES documented in this encounter Visit Diagnoses Diagnosis Low back pain Lumbago Lumbar radiculopathy Thoracic or lumbosacral neuritis or radiculitis, unspecified documented in this encounter Historical Medications * This list may reflect changes made after this encounter. Medication Sig Dispensed Refills Start Date End Date VITAMIN B COMPLEX (B COMPLEX 50 ORAL) Take by mouth. METHYLSULFONYLMETHANE ORAL Take by mouth. PRASTERONE, DHEA, (DHEA ORAL) Take by mouth. SOY ISOFLAVONE (SOY ORAL) Take by mouth. HYALURONATE SODIUM (HYALURONIC ACID ORAL) Take by mouth. BIOTIN ORAL Take by mouth. duloxetine (CYMBALTA) 60 mg capsule Take 60 mg by mouth 2 times daily. 06/07/2011 montelukast (SINGULAIR) 10 mg tablet Take 10 mg by mouth daily. esomeprazole (NEXIUM) 20 mg capsule Take 40 mg by mouth 2 times daily. 06/07/2011 topiramate (TOPAMAX) 100 mg tablet Take 200 mg by mouth 2 times daily. clonAZEPAM (KLONOPIN) 1 mg tablet Take 1 mg by mouth 2 times daily. 06/07/2011 metoprolol (LOPRESSOR) 25 mg tablet Take 25 mg by mouth daily. 06/07/2011 buPROPion (WELLBUTRIN XL) 300 mg XL tablet Take 300 mg by mouth daily. levothyroxine (SYNTHROID) 175 mcg tablet Take 175 mcg by mouth daily. meloxicam (MOBIC) 15 mg tablet Take 15 mg by mouth daily. modafinil (PROVIGIL) 200 mg tablet Take 200 mg by mouth 2 times daily. 06/07/2011 metformin (GLUCOPHAGE) 500 mg tablet Take 500 mg by mouth daily. 06/07/2011 added in this encounter Care Teams Strike Plate Attacher Relationship Specialty Start Date End Date Lukasz Sotelo MD [address] [place] [address] PCP - General 05/04/11 10/07/14 documented as of this encounter
--- OUTSIDE RECORDS SUMMARY | 2024-05-29 02:29 | XMS_ITS | Encounter Summary ---
Author Organization [facility] Address [address] [place] [address] Care Team Providers Care Ball Sorter Name Role Phone Lukasz Sotelo MD Primary Care Provider [phone] Reason for Referral * Consult (Routine) - Closed Specialty Diagnoses / Procedures Referred By Darvin segovia Referred To Contact Pain Medicine Diagnoses Low back pain Lumbar radiculopathy Jane Reyna PA-C [address] [place] [address] [facility] [address] [place] [address] Referral ID Status Reason Start Date Expiration Date V isits Requested Visits Authorized [id number] Closed Specialty Services Required 09/02/2011 1 1 Question Answer Reason for Request: left S1 TFESI Reason for Visit * Reason Onset Date Comments Follow-up 09/02/2011 Encounter Details Date Type Department Care Team (Late st Contact Info) Description 09/02/2011 Telephone [facility] Spine Program - [address] [place] [address] Jane Reyna PA-C Follow-up Social History Tobacco [...] Telephone Encounter - Jane Jules PA - 09/02/2011 1626 EST Jes had about 30% relief of her left posterolateral leg pain with the left L5- S1 TFESI. She wouldlike to try another injection and will f/u 2 weeks after. Please schedule her for left S1 TFESI. * Telephone Encounter - Kb Yip - 09/02/2011 1009 EST Patient called requesting phone follow up for injection received on 08/18. Anytime after 3:00pm works best for her. Please call [phone]. documented in this encounter Plan of Treatment Scheduled Referrals Name Type Priority Associated Diagnoses Orde r Schedule AMB CONSULT PAIN CLINIC Outpatient Referral Routine Low back pain Lumbar radiculopathy Ordered: 09/02/2011 documented as of this encounter Visit Diagnoses Diagnosis Low back pain Lumbago Lumbar radiculopathy Thoracic or lumbosacral neuritis or radiculitis, unspecified documented in this encounter Care Teams Ball Sorter Relationship Specialty Start Date End Date Lukasz Sotelo MD [address] [place] [address] PCP - General 05/04/11 10/07/14 documented as of this encounter
--- OUTSIDE RECORDS SUMMARY | 2024-05-29 02:29 | XMS_ITS | Encounter Summary ---
Author Organization [facility] Address [address] [place] [address] Care Team Providers Care Ordnance Handler Name Role Phone Lukasz Sotelo MD Primary Care Provider [phone] Reason for Visit * Reason Onset Date Comments Results 08/22/2011 Encounter Details Date Type Department Care Team (Late st Contact Info) Description 08/22/2011 Telephone [facility] Interventional Pain [address] [place] [address] Johana Gonzalez MD Results Social History Tobacco [...] encounter Miscellaneous Notes * Telephone Encounter - Florence Osuna RN - 08/22/2011 8028 EDT RN returned.call to patient. Patient c/o pain 4/10 intensity before taking naproxen.After naproxen almost 0/10 but she did not have this pain before. Denies s/s of infection at injection site, no newweakness in arms or legs and no bowel/bladder problems. Advised to use ice 10-20 minutes Q hour WA.Give steroids 2 weeks for to work. Patient reassured no red flag symptoms and instructed to call back for any other concerns. * Telephone Encounter - RafaelaguilardaliAzeb - 08/22/2011 1236 EDT Patient is calling with results of recent injection, 08/11/11. She states she had relief for about a week. Today it is starting to wear off. Some pain with walking, The pain is different from before.Please call the patient. documented in this encounter Plan of Treatment Not on file documented as of this encounter Visit Diagnoses Not on filedocumented in this encounter Care Teams Ordnance Handler Relationship Specialty Start Date End Date Lukasz Sotelo MD [address] [place] [address] PCP - General 05/04/11 10/07/14 documented as of this encounter
--- OUTSIDE RECORDS SUMMARY | 2024-05-29 02:29 | XMS_ITS | Encounter Summary ---
Author Organization [facility] Address [address] [place] [address] Care Team Providers Care Psychologist Educational Name Role Phone Lukasz Sotelo MD Primary Care Provider [phone] Reason for Visit * Reason Comments Leg Pain left leg pain Back Pain low back pain Encounter Details Date Type Department Care Team (Latest Contact Info) Description 10/27/2011 14:30 EST Office Visit [facility] Interventional Pain [address] [place] [address] Johana Gonzalez MD Low back pain; Acquired spondylolisthesis; Degenerative disc disease; Facet arthropathy; Lumbar radicular pain Discharge Disposition: Auto Discharge Social History Tobacco [...] Sign Reading Time Taken Comments Blood Pressure 142/78 10/27/2011 1524 EST Pulse 89 10/27/2011 1524 EST Temperature 36.9 ??C (98.5 ??F) 10/27/2011 1416 EST Respiratory Rate 18 10/27/2011 1524 EST Oxygen Saturation - - Inhaled Oxygen Concentration - - Weight 133.8 kg (295 lb) 10/27/2011 1416 EST Height 162.6 cm (5' 4) 10/27/2011 1416 EST Body Mass Index 50.64 10/27/2011 1416 EST documented in this encounter Patient Instructions * Patient Instructions* Esdras Shea RN - 10/27/2011 15:[address] [place] [address] for Pain Medicine [address] [address] Patient Instructions You have had your Left L5-S1 Transforaminal Epidural Steroid Injection. The purpose of [...] our office at once. Instructions for follow-up Patient Education Topic: Method: Handout and Verbal Taught to: Patient Barriers: None Outcomes: verbalized understanding Signature:ESDRAS SHEA RN If you have any questions about your block, please call documented in this encounter Discharge Disposition Disposition Code Departure Means Destination Auto Discharge documented in this encounter Progress Notes * Johana Gonzalez - 10/27/2011 2312 EST Patient Name: Jes Bello : 1960 Date of Service: 10/27/2011 Mechanical Design Drafter: Johana Gonzalez MD Tool Machinist: none Procedure: Transforaminal epidural steroid injection at the left L5-S1 foramen Interval History: Ms. Bello presents at the request of Lukasz Sotelo for evaluation and treatment of her chronic low back pain and leg pain. The pain is primarily localized to the left back with radiation into her left lateral thigh. Patient describes several sensations including the sensation that her vertebra are sliding off of each other and down into her tailbone. Patient also reports that with a flexion/ extension x-ray she saw that her L4 vertebral body was slid out to the side and sliding way up and down. She had a TFESI in July of 2010 and got some relief. She is a rather difficult historian and it is very hard to characterize precisely how much relief or for how long. Today she rates pain in her low back and her left thigh as equally problematic. Reports that her backpain is most bothersome when she reaches forward for things. Her leg pain is fairly constant. This pain has not responded to conservative measures. Imaging: Grade 2 anterolisthesis of L4 on L5, multilevel degenerative disc disease and lumbar facet arthropathy ROS: Negative for any fever, chills, nausea/vomiting, headaches, chest pain, palpitations, shortness of breath, bladder/bowel incontinence, easy bruising, bleeding, anti-coagulation or known recent infections. Physical Exam: Vital signs: BP 142/78 Pulse 89 Temp(Src) 36.9 ??C (98.5 ??F) (Tympanic) Resp 18 Ht 162.6 cm (64) Wt 133.811 kg (295 lb) BMI 50.64 kg/m2 Alert and oriented x 3. Obese. Somewhat disheveled. Deconditioned Non-antalgic gait. Ambulates without an assist device. Positive for lumbar paraspinal tenderness and tenderness over sacroiliac joints. Increased pain with facet loading and with lumbar flexion. Negative seated SLR. Assessment: 51 year old woman with lumbar spondylolisthesis and multilevel degenerative disc and facet disease.Patient with left sided lumbar radicular pain. Clinical picture is somewhat difficult given overlying obesity and deconditioning. Plan: Had more than a 30 minute discussion with Ms. Bello regarding her symptoms and likely etiologies. Also discussed injection therapy options. Patient had an extremely long list of questions including wanting to know exactly how long a lumbar fusion surgery would take. I explained that this was a question that she needed to ask a surgeon and she then requested the names of 'female surgeons that she should see. She seemed to be quite confused about the findings on her imaging and confused regarding the intent and likely benefit and limitations of the planned procedure today. This remained true despite multiple explanations including the use of anatomic models. Proceed with transforaminal epidural steroid injection at left L5-S1. If spread of medication is not apparent along S1 nerve root will also inject through the left S1 foramen. Follow up as needed. If no relief from today's procedure I am unsure whether additional injection therapy will be of benefit. This is at least in part because I worry about Ms. Bello's ability to understand her treatment plans and options. PROCEDURE: The patient gave informed written consent to [...] revealed good spread along the Lt L5 and Lt S1 nerve root with no evidence of intravascular or intrathecal uptake. After negative aspiration, 80 mg Depo- Medrol and 2 ml 0.25% Bupivacaine was injected. The needle was then flushed and withdrawn. The patient tolerated the procedure well, there were no apparent complications, and she was discharged in stable condition. Written and verbal discharge instructions were reviewed with the patient prior to discharge. * Dai Stephenson - 10/27/2011 1421 EST [place] [facility] Rooming Note Does patient have a Building Pressure Washer? yes Is patient NPO? (Solids since midnight [...] age) Is there a chance current ? na Other: documented in this encounter Miscellaneous Notes * Scanned Note-Null - Carrier Driver, Scan - 10/28/2011 0936 EST documented in this encounter Plan of Treatment Not on file documented as of this encounter Visit Diagnoses Diagnosis Low back pain Lumbago Acquired spondylolisthesis Degenerative disc disease Degeneration of intervertebral disc, site unspecified Facet arthropathy Spondylosis of unspecified site without mention of myelopathy Lumbar radicular pain Thoracic or lumbosacral neuritis or radiculitis, unspecified documented in this encounter Historical Medications * This list may reflect changes made after this encounter. Medication Sig Dispensed Refills Start Date End Date GINKGO BILOBA (GINKOBA ORAL) Take by mouth. PHYTONADIONE (VITAMIN K ORAL) Take by mouth. added in this encounter Care Teams Psychologist Educational Relationship Specialty Start Date End Date Lukasz Sotelo MD [address] [place] [address] PCP - General 05/04/11 10/07/14 documented as of this encounter
--- OUTSIDE RECORDS SUMMARY | 2024-05-29 02:29 | XMS_ITS | Encounter Summary ---
Author Organization [facility] Address [address] [place] [address] Care Team Providers Care Director Consumer Affairs Name Role Phone Lukasz Sotelo MD Primary Care Provider [phone] Reason for Visit * Reason Onset Date Comments Results 07/01/2011 BILATERAL lUMBAR fACET Encounter Details Date Type Department Care Team ([facility] st Contact Info) Description 07/01/2011 Telephone [facility] Interventional Pain [address] [place] [address] Yamile Armas RN Results (BILATERAL lUMBAR fACET ) Social History Tobacco Use Types Packs/Day [...] Telephone Encounter - Florence Osuna RN - 07/12/2011 1051 EDT RN called patient for results of injection 1st day and how he feels now. Left message to call us with this info. documented in this encounter Plan of Treatment Not on file documented as of this encounter Visit Diagnoses Not on filedocumented in this encounter Care Teams Director Consumer Affairs Relationship Specialty Start Date End Date Lukasz Sotelo MD NPI: [id number] [place] [id number] PCP - General 05/04/11 10/07/14 documented as of this encounter
--- OUTSIDE RECORDS SUMMARY | 2024-05-29 02:29 | XMS_ITS | Encounter Summary ---
Author Organization [facility] Address [address] [place] [address] Care Team Providers Care Whizzer Operator Name Role Phone Ramona Meyers MARIANNE Primary Care Provider + Reason for Visit * Reason Comments Back Pain low back pain Encounter Details Date Type Department Care Team (Latest Contact Info) Description 10/08/2014 15:00 EST Office Visit [facility] Interventional Pain [address] [place] [address] Isabell Andersen, PA [address] [place] [address] Spondylolisthesis (Primary Dx); DJD (degenerative joint disease), lumbar; Spinal stenosis, lumbar; Asperger's syndrome Social History Tobacco Use Types Packs/Day Years [...] Sign Reading Time Taken Comments Blood Pressure 143/84 10/08/2014 1507 EST Pulse 85 10/08/2014 1507 EST Temperature 37.2 ??C (98.9 ??F) 10/08/2014 1507 EST Respiratory Rate 16 10/08/2014 1507 EST Oxygen Saturation - - Inhaled Oxygen Concentration - - Weight 133.8 kg (295 lb) 10/08/2014 1507 EST Height 162.6 cm (5' 4) 10/08/2014 1507 EST Body Mass Index 50.64 10/08/2014 1507 EST documented in this encounter Progress Notes * Isabell Andersen - 10/09/2014 1246 EST [place] [facility] OP PAIN Follow Up Visit Patient Name: Jes Bello : 1960 Date of Service: 10/08/14 Chief Complaint: Chief Complaint Patient presents with ??? Back Pain low back pain Referring Physician: Ramona Meyers Extended Follow up Visit Interval History: Jes Bello returns to clinic today for continued evaluation and review of her treatments for her chronic back pain. She was last seen in 2011 for the same complaint. Identifies pain that radiates across the low back in a beltline-type fashion and down the posterolateral aspect of the left leg. Describes her pain as getting worse and becoming more persistent. Pain is burning, sharp, aching, shooting, radiating symptom extending down the leg as well as some tingling. Currently, identifies 85% of her pain in her back and 15% of her pain in her leg. The back pain is becoming more excruciating, particularly when she is bending or squatting. Pain today is rated at 0/10 (due to recent dosing of pain medication). She has recently done physical therapy, within the last 6 months. Describes that there is a notable amount of relief with traction. Also using Mobic and Flexeril. She feels that this is the best combination holds her back more than her leg pain. Identifies pain worse first thing in the morning. Also, has a sensation of there being movement within her back, particularly when she is bending. She attributes this to the spondylolisthesis in her back and is concerned that it may be worsening. The patient is somewhat fixated on a permanent solution to her pain and is hoping to discuss spinalsurgery. In reviewing the documentation, it does not appear as if she has followed up with orthopedic spine since 2010, and it would be necessary to see them to discuss any potential surgical interventions. Pain today is rated at a 0/10 as she has had pain medication today. Injection History: 10/27/11: Left l5-S1 TFESI-- patient is unable to recall results 10/27/11: Left L5-S1 TFESI-- 1 week of near complete relief, then 30% after that 07/01/11: Bilateral L4-5, L5-S1 facet injections-- 100% relief starting 5 days after injection of back pain, continued to have 85-90% relief for several months, no improvement of leg symptoms Imaging: Lumbar XR 06/07/11- The vertebral body heights are well-maintained. There is multilevel degenerativedisease with narrowing of the intervertebral spaces. There is partial facet arthropathy most pronounced between L3 and S1. There is grade 2 anterolisthesis of L4 on L5 on neutral views. This is not significantly different from MR. There is a slight change in position with flexion may represent somedynamic instability On MRI, there is mild to moderate central canal stenosis at this level. No Known Allergies Outpatient Prescriptions Marked as Taking for the 10/08/14 encounter (Office Visit) with Isabell Andersen PA Medication Sig Dispense Refill ??? buPROPion (WELLBUTRIN XL) 300 mg XL tablet Take 300 mg by mouth daily. ??? clonAZEPAM (KLONOPIN) 1 mg tablet Take 1 mg by mouth 2 times daily. ??? cyclobenzaprine (FLEXERIL) 10 mg tablet Take 10 mg by mouth 3 times daily as needed. ??? duloxetine (CYMBALTA) 60 mg capsule Take 60 mg by mouth 2 times daily. ??? esomeprazole (NEXIUM) 20 mg capsule Take 40 mg by mouth 2 times daily. ??? GINKGO BILOBA (GINKOBA ORAL) Take by mouth. ??? HYALURONATE SODIUM (HYALURONIC ACID ORAL) Take by mouth. ??? levothyroxine (SYNTHROID) 175 mcg tablet Take 175 mcg by mouth daily. ??? meloxicam (MOBIC) 15 mg tablet Take 15 mg by mouth daily. ??? metformin (GLUCOPHAGE) 500 mg tablet Take 500 mg by mouth daily. ??? METHYLSULFONYLMETHANE ORAL Take by mouth. ??? metoprolol (LOPRESSOR) 25 mg tablet Take 25 mg by mouth daily. ??? modafinil (PROVIGIL) 200 mg tablet Take 200 mg by mouth 2 times daily. ??? montelukast (SINGULAIR) 10 mg tablet Take 10 mg by mouth daily. ??? topiramate (TOPAMAX) 100 mg tablet Take 200 mg by mouth 2 times daily. ??? UNABLE TO FIND 20 Drops daily. Med Name: cellfood ??? VITAMIN B COMPLEX (B COMPLEX 50 ORAL) Take by mouth. No Facility-Administered Medications for the 10/08/14 encounter (Office Visit) with Isabell Andersen PA. Physical Exam: Vitals: Blood pressure 143/84, pulse 85, temperature 37.2 ??C (98.9 ??F), temperature source Tympanic, resp. rate 16, height 162.6 cm (64), weight 133.811 kg (295 lb). PE: General: Alert and oriented x3. Appropriate in conversation, no apparent distress. Disheveled, poorhygiene, smells of urine. Pain syndrome is relayed without embellishment. Difficulty keeping patient focused answering specific questions at times. Skin is warm and dry with no apparent lesions, bruises, petechiae, rashes on lumbar spine. 2 small open lesions on lumbar area/buttocks; no signs of infection Neuro: Slight alteration on the posterolateral aspect of the left thigh compared to contralateral side. Straight leg raise is negative bilaterally. Extremities: No clubbing or cyanosis. Slight edema in lower legs. Musculoskeletal: Ambulates without an assist device. Gait with wide base of support due to body habitus. No difficulty rising from a seated position. Tenderness to palpation over axial lower lumbar spine, most prominent L4 through S1 as well as over bilateral SI joints (left greater than right). Baylee's positive only on the left. Increased pain with forward flexion and facet-loading maneuvers. Assessment: Jes Bello is a 54-year-old female who presents with primarily chronic axial low backpain with some radicular symptoms in primarily an L5 distribution down the left lower extremity. She has undergone injections in the past with varying degrees of relief. At this time, we will plan tomove forward with lumbar facet injections as she has noted facet arthropathy, as well as a grade 2 spondylolisthesis evidenced on imaging. Additionally, she does have a significant amount of tenderness over her bilateral SI joints (left greater than right) which may be also may be a contributing component to her back pain. At this time, the patient would like to discuss further with orthopedics if there are any other options to help potentially alleviate her pain as she does feel like it has begun to worsen with time and describes more of a slipping sensation that she experiences in the low back. Please see specific recommendations listed below. Encounter Diagnoses Name Primary? Spondylolisthesis Yes ??? DJD (degenerative joint disease), lumbar ??? Spinal stenosis, lumbar ??? Asperger's syndrome Recommendations: 1. Scheduled for bilateral L4-5, L5-S1 facet injections 2. If no relief, may consider SI joint vs JYOTSNA injections 3. Recommend patient be referred back to Ortho Spine for re-evaluation. She would like to discuss possible surgical options. Additionally, I explained to her laser surgery is not offered her in [place] and is not covered by insurance at this time. 4. Consider a trial of gabapentin. Recommend that her psychiatrist be consulted on this matter before starting the medication. If gabapentin is not a option, then increasing her topamax or Cymbalta dose to help with pain control could be considered. I did have greater than 45 minutes of face to face conversation with this patient today and 35 minutes were spent discussing the clinical, objective findings and treatment recommendations considered and reviewed above. I was directly supervised by Dr. Little, who was in suite and immediately available during the entirepatient encounter. Isabell Andersen PA-C Portions of this document may have been prepared with speech recognition software or keyboard data warehouse specialist techniques. Minor irregularities or keyboarding misprints may be present documented in this encounter Plan of Treatment Not on file documented as of this encounter Visit Diagnoses Diagnosis Spondylolisthesis- Primary Congenital spondylolisthesis DJD (degenerative joint disease), lumbar Degeneration of lumbar or lumbosacral intervertebral disc Spinal stenosis, lumbar Spinal stenosis, lumbar region, without neurogenic claudication Asperger's syndrome Other specified pervasive developmental disorders, current or active state documented in this encounter Care Teams Whizzer Operator Relationship Specialty Start Date End Date Ramona Meyers FNP PCP - General 10/08/14 03/22/21 documented as of this encounter
--- OUTSIDE RECORDS SUMMARY | 2024-05-29 02:29 | XMS_ITS | Encounter Summary ---
Author Organization [facility] Address [address] [place] [address] Care Team Providers Care Shredded Filler Cutter Operator Name Role Phone Lukasz Sotelo MD Primary Care Provider [phone] Encounter Details Date Type Department Care Team (Late st Contact Info) Description 06/14/[address] [facility] Spine Program - [address] [place], [place] [id number] Lukasz Sotelo MD [address] [place] [address] Social History Tobacco Use Types Packs/Day Years [...] Diagnoses Not on filedocumented in this encounter Historical Medications * This list may reflect changes made after this encounter. Medication Sig Dispensed Refills Start Date End Date cyclobenzaprine (FLEXERIL) 10 mg tablet Take 10 mg by mouth 3 times daily as needed. added in this encounter Care Teams Shredded Filler Cutter Operator Relationship Specialty Start Date End Date Luksaz Sotelo MD [address] [place], [place] [id number] PCP - General 05/04/11 10/07/14 documented as of this encounter
--- OUTSIDE RECORDS SUMMARY | 2024-05-29 02:29 | XMS_ITS | Encounter Summary ---
Author Organization [facility] Address [address] [place] [address] Care Team Providers Care Operations Clerk Name Role Phone Lukasz Sotelo MD Primary Care Provider [phone] Reason for Referral * Consult (Routine) - Closed Specialty Diagnoses / Procedures Referred By Darvin segovia Referred To Contact Pain Medicine Diagnoses Low back pain Lumbar radiculopathy Jane Reyna PA-C [address] [place] [address] [facility] [address] [place] [address] Referral ID Status Reason Start Date Expiration Date V isits Requested Visits Authorized [id number] Closed Specialty Services Required 07/14/2011 1 1 Question Answer Reason for Request: Left L5-S1 TFESI Reason for Visit * Reason Comments Back Pain Injection Follow-up Encounter Details Date Type Department Care Team (Latest Contact Info) Description 07/14/2011 13:30 EDT Office Visit [facility] Spine [place] [address] Jane Reyna PA-C Low back [...] Progress Notes * Jane Jules PA - 07/19/2011 1559 EDT Jes returns for f/u s/p L4-5 and L5-S1 facet joint injections with significant relief of her backpain. She continues to experience pain down her left lateral leg however in an L5 distribution. O: Lumbar MRI (01/18/11) - L4-5 grade 1 anterolisthesis, global disc bulge, moderate/severe facet arthropathy. No significant neuroforaminal narrowing. L4-5 central disc bulge w/o lateral recess or neuroforaminal narrowing bilaterally. AP, lateral, flexion, and extension x-rays of the lumbar spine reveals grade 1 anterolisthesis of L4 on L5 with some reduction in extension. There is disc degeneration and facet arthropathy at L4-5 and L5-S1. A/P: 50 year old female with left lumbar radiculopathy in an L5 distribution. - Left L5-S1 TFESI and f/u 2 weeks after - Activity as tolerated I spent a total of 20 minutes in face to face time with this patient today and 20 minutes of that time was spent counseling the patient on the risks and treatment options for low back pain and lumbarradiculopathy. documented in this encounter Plan of Treatment Scheduled Referrals Name Type Priority Associated Diagnoses Orde r Schedule AMB CONSULT PAIN CLINIC Outpatient Referral Routine Low back pain Lumbar radiculopathy Ordered: 07/14/2011 documented as of this encounter Visit Diagnoses Diagnosis Low back pain Lumbago Lumbar radiculopathy Thoracic or lumbosacral neuritis or radiculitis, unspecified documented in this encounter Care Teams Operations Clerk Relationship Specialty Start Date End Date Lukasz Sotelo MD [address] [place] [address] PCP - General 05/04/11 10/07/14 documented as of this encounter
[2024-05-29 15:41] LABS: ALT 42 U/L (14-59); AST 24 U/L (15-37); Albumin 3.6 g/dL (3.4-5.0); Alkaline Phosphatase 116 U/L (46-116); BUN 21 mg/dL (7-18); Bilirubin, Total 0.22 mg/dL (0.2-1.0); CREATININE 1.1 mg/dL (0.55-1.02); Calcium 9.3 mg/dL (8.5-10.1); Calculated LDL 74 mg/dL (<100); Chloride 104 mmol/L (98-107); Cholesterol 150 mg/dL (<200); Estimated GFR 56.46 (mL/min/1.73m2); Glucose 101 mg/dL (74-106); HDL Cholesterol 65 mg/dL (40-60); Potassium 4.4 mmol/L (3.5-5.1); Sodium 139 mmol/L (136-145); Total Protein 7.6 g/dL (6.4-8.2); Triglyceride 58 mg/dL (<150)
[2024-05-29 15:56] LABS: COMMENT (LAB VIEW ONLY) 214.82 mg/dL; Microalb ug/mg Crea 10.8 ug/mg Cr
[2024-05-30 11:46] LABS: Hemoglobin A1C 6.2 % (<5.7)
== END 2024-05-29 02:25 | disposition home or self-care (01) ==
LOC: LBO 02:24
PROVIDERS: PCP Nurse Practitioner Adult Health; Referring Provider Nurse Practitioner Adult Health; Visit Provider Nurse Practitioner Adult Health
DX: I10 Essential (primary) hypertension (principal); E11.9 Type 2 diabetes mellitus without complications; E03.9 Hypothyroidism, unspecified; N18.30 Chronic kidney disease, stage 3 unspecified
CPT/HCPCS: 36415; 80053; 80061; 82043; 82570; 83036

== ENCOUNTER 2024-08-20 02:50 | Outpatient (CLI) | payer MEDICARE, MEDICAID, SELFPAY ==
[2024-08-20 14:41] LABS: Hemoglobin A1C 5.9 % (<5.7)
[2024-08-20 17:16] LABS: Lithium 0.6 mmol/L (0.6-1.2)
[2024-08-20 17:32] LABS: Magnesium 2.2 mg/dL (1.8-2.4); TSH (W/Ref FT4) 2.14 uIU/mL (0.36-3.74)
[2024-08-20 18:15] LABS: FREE T4 1.22 ng/dL (0.76-1.46)
[2024-08-20 22:34] LABS: T3, Total 140 ng/dL (97-169)
[2024-08-21 21:34] LABS: Cystatin C, S 1.02 mg/L; eGFR by Cystatin C 70 mL/min/BSA (>60)
== END 2024-08-20 02:51 | disposition home or self-care (01) ==
LOC: LBO 02:51
PROVIDERS: PCP Nurse Practitioner Adult Health; Referring Provider Nurse Practitioner Adult Health; Visit Provider Nurse Practitioner Adult Health
DX: I10 Essential (primary) hypertension (principal); E83.42 Hypomagnesemia; E11.9 Type 2 diabetes mellitus without complications; E03.9 Hypothyroidism, unspecified; F60.9 Personality disorder, unspecified; Z79.899 Other long term (current) drug therapy
CPT/HCPCS: 36415; 82610; 80178; 83036; 83735; 84439; 84443; 84480

== ENCOUNTER → 2024-08-21 15:05 | Outpatient (BNVA) | payer MEDICARE, MEDICAID, SELFPAY | PROVIDERS: PCP Nurse Practitioner Adult Health; Referring Provider Nurse Practitioner Adult Health; Visit Provider Podiatrist | DX: N18.30 Chronic kidney disease, stage 3 unspecified (principal); E11.51 Type 2 diabetes mellitus with diabetic peripheral angiopathy without gangrene; I70.209 Unspecified atherosclerosis of native arteries of extremities, unspecified extremity; L84 Corns and callosities; L60.3 Nail dystrophy; M79.671 Pain in right foot; M79.672 Pain in left foot | CPT/HCPCS: 11056; 11721 ==

== ENCOUNTER 2024-09-18 15:17 | Outpatient (CLI) | payer MEDICARE, MEDICAID, SELFPAY ==
[2024-09-18 15:24] LABS: BUN 17 mg/dL (7-18); CREATININE 1.1 mg/dL (0.55-1.02); Estimated GFR 56.46 (mL/min/1.73m2); Vitamin B12 715 pg/mL (193-986); Vitamin D 25 Total 36.9 ng/mL (30-100)
--- OUTSIDE RECORDS SUMMARY | 2024-09-18 15:25 | XMS_ITS | Encounter Summary ---
Author Organization [facility] [place] [address] Care Team Providers Care Timber Killer Name Role Phone Jane Hector APRN Primary Care Provider [phone] Reason for Visit * Reason Comments Medication Refill Encounter Details Date Type Department Care Team (Late st Contact Info) Description 08/14/2024 Refill [facility] [place] [phone] Yamile Jesus MD [facility] [place] [address] Type 2 diabetes mellitus without complication, unspecified [...] Care Team (Late st Contact Info) Description 10/04/2024 3:30 PM EST Office Visit [facility] [place] [phone] Yamile Jesus MD [facility] [place] [address] 12/12/2024 7:30 PM EST Procedure visit [facility] [address] [place] [address] documented as of this encounter Goals Goal Patient Goal Type Associated Problems Recent Progress Patient-Stated? Author Nutrition Goal Lifestyle No Gina Mendez RD Note: Nutriton Goals: 07/22/24 TF 1.Try [place] Dressing/Dip for arugula, radishes, raw zuccini 2. Limit jucie to 4-6 ounces (green juice) 3. Try frozen mixed berries in your yogurt for fiber and nutrition Meal Plan: Below are several meal options [...] broccoli) with sharp cheddar or [place] cheese (if you want) with piece of [...] pickled beets 9. Limit the frappachinos from [facility], try a cold brew coffee in the hot weather Call Sleep medicine: [phone] documented as of this encounter Visit Diagnoses Diagnosis Type 2 diabetes mellitus without complication, unspecified whether fdc insulin use documented in this encounter Care Teams Timber Killer Relationship Specialty Start Date End Date Jane Hector APRN [address] [place] [address] PCP - General Geriatric Medicine 07/18/23 documented as of this encounter
--- OUTSIDE RECORDS SUMMARY | 2024-09-18 15:25 | XMS_ITS | Clinical Summary ---
Author Organization [facility] [place] [address] Care Team Providers Care Plant Health Care Technician Name Role Phone Jane Hector APRN Primary Care Provider [phone] Allergies No known active allergies Medications Medication Sig Dispensed Refills Start Date End Date Status lisinopril (PRINIVIL;ZESTRIL ) 20 mg Tablet Take 20 mg by mouth daily. Active montelukast (SINGULAIR) 10 mg Tablet Take 10 mg by mouth nightly. Active levothyroxine (SYNTHROID) 175 mcg Tablet Take 175 mcg by mouth Daily. Active omeprazole (PriLOSEC) [address] capsuleIndication s:Gastroesophagea l reflux disease, unspecified whether esophagitis present TAKE 1 CAPSULE BY MOUTH DAILY 28 capsule 11 07/31/2024 Active Mounjaro 15 mg/0.5 mL Pen InjectorIndicatio ns:Type 2 diabetes mellitus without complication, unspecified whether long-term insulin use INJECT 15 MG SUBCUTANEOUSLY ONCE A WEEK 2 mL 3 08/14/2024 Active naltrexone (Depade) 50 mg tabletIndications :Class 3 severe obesity with serious comorbidity and body mass index (BMI) of 45.0 to 49.9 in adult, unspecified obesity type Take 1 tablet by mouth every morning. 30 tablet 3 09/04/2024 Active Active Problems Problem Noted Date Diagnosed Date Class 3 severe obesity with serious comorbidity and body mass index (BMI) of 40.0 to 44.9 in adult 12/03/2022 Hypertension 12/03/2022 Type 2 diabetes mellitus without complication Hypothyroidism 12/03/2022 CIARA (obstructive sleep apnea) 12/03/2022 Spinal stenosis at L4-L5 level 06/06/2018 Encounters Date Type Department Care Team Description 09/17/2024 Telephone Sleep Center at [facility] [address] [place] [address] Kaia Becker APRN 09/09/2024 3:00 PM EST TH Visit (TeleHealth) Sleep Center at [facility] [address] [place] [address] Kaia Becker, TELLER COORDINATOR Restless sleeper; Periodic limb movement; History of obstructive sleep apnea; Snoring 09/04/2024 Refill [place] [address] Yamile Jesus MD Class 3 severe obesity with serious comorbidity and body mass index (BMI) of 45.0 to 49.9 in adult, unspecified obesity type 09/04/2024 Refill [place] [address] Yamile Jesus MD Class 3 severe obesity with serious comorbidity and body mass index (BMI) of 45.0 to 49.9 in adult, unspecified obesity type 08/29/2024 Patient Outreach [facility] [address] [place] [address] Gina Olivas [facility] 08/29/2024 Telephone [place] [address] Yamile Jesus MD 08/14/2024 Refill [place] [address] Yamile Jesus MD Type 2 diabetes mellitus without complication, unspecified whether buttermaker insulin use 07/30/2024 Refill [place] [address] Yaimle Jesus MD Gastroesophageal reflux disease, unspecified whether esophagitis present 07/25/2024 Telephone [place] [address] Yamile Jesus MD Medication Reaction 07/22/2024 1:00 PM EDT TH Visit (TeleHealth) Weight and Wellness at [place] [phone] Tawny Harris I, DANIAL Type 2 diabetes mellitus without complication, unspecified whether long-term insulin use; Class 3 severe obesity with serious comorbidity and body mass index (BMI) of 45.0 to 49.9 in adult, unspecified obesity type 07/22/2024 Telephone [facility] and [facility] at [place] [phone] Ag Patel Warren 07/04/2024 12:00 PM EDT Office Visit [facility] at [place] [phone] Yamile Jesus MD Class 3 severe obesity with serious comorbidity and body mass index (BMI) of 45.0 to 49.9 in adult, unspecified obesity type (Primary Dx); Type 2 diabetes mellitus without complication, unspecified whether buttermaker insulin use; Gastroesophageal reflux disease, unspecified whether esophagitis present; Hypertension, unspecified type; Mixed anxiety and depressive disorder; Hypothyroidism, unspecified type; CIARA (obstructive sleep apnea); Insomnia, unspecified type 07/04/2024 Telephone [facility] at [place] [phone] Yamile Jesus MD Other 07/04/2024 Travel 06/28/2024 Telephone [place] [address] Yamile Jesus MD from Last 3 Months Family History Medical [...] EDT Inhaled Oxygen Concentration - - Weight 122.1 kg (269 lb 1.6 oz) 024 12:02 PM EDT Height 162.6 cm (5' 4) 07/04/2024 12:0 2 PM EDT Body Mass Index 46.19 07/04/2024 12:02 PM EDT Plan of Treatment Upcoming Encounters Date Type Department Care Team (Late st Contact Info) Description 10/04/2024 3:30 PM EST Office Visit [place] [address] Yamile Jesus MD [facility] [address] [facility] [address] 12/12/2024 7:30 PM EST Procedure visit Sleep Center at [facility] [address] [place] [address] Health Maintenance Due Date Last Done Comments CT Colonography 1960 Colonoscopy 1960 Colorectal Cancer Screening 1960 FIT DNA 1960 FIT 1960 Sigmoidoscopy (10 year) with FIT yearly 1960 Sigmoidoscopy 1960 Pneumococcal Vaccine: At-Ris k 5-64yrs (1 of 2 - PCV) 1966 DM Opthalmology Exam 1970 DM Urine Microalbumin yearly 1970 HIV screen 1978 Hepatitis C Screening 1978 Tetanus/Diphtheria/Pertussis Vaccines (1 - Tdap) 1979 HPV test 1990 PAP Smear 1990 Breast Cancer Share Decision Needed 2000 Breast Cancer screening 2000 Zoster vaccine (1 of 2) 2010 Advance Directive 2015 RSV Vaccine (1 - Risk 60-74 years 1-dose series) 2020 DM Hemoglobin A1c 01/10/2023 10/12/2022, 09/28/2022 DM Creatinine yearly 10/12/2023 10/12/2022, 11/29/19 22 Covid-19 Vaccine (1 - 2023-2 5 season) 2024 Influenza (Flu) vaccine (1 o f 1 [...] and frozen broccoli) with sharp cheddar or equatorial guinean cheese (if you want) with piece of fruit (20-25 grams of protein) Option 2: plain yogurt, cameroonian has more protein with small amount of [...] Option 2: tuna salad with 2 tbsp cameroonian plain yogurt with 2 tbsp huff over spinach or lettuce If needed, Snack: All 10 grams of protein Option 1: hummus and raw vegetable and crackers (wheat thin) Option 2: cottage cheese (3/4 cup) with chives Option 3: grapes with nuts Other Nutrition Goals 60 grams of protein per day 20-25 grams of fiber per day Huff - 1 tbsp cameroonian plain yogurt with 1 tbsp huff Limit [...] in the hot weather Call Sleep medicine: [phone] Procedures Procedure Name Priority Date/Time Associated Diagnosis Comments [facility] EXTERNAL LABS 2 Routine 10/12/2022 from Last 3 Months or Most Recently Relevant to Health Maintenance Results * (ABNORMAL) [facility] Labs 2 - External (10/12/2022) Cholesterol, [...] 9.47 Platelet 267 10/12/2022 Historical Provider MD EXTERNAL LAB ERASMO AVILEZ from Last 3 Months or Most Recently Relevant to Health Maintenance Care Teams Plant Health Care Technician Relationship Specialty Start Date End Date Jane Hector APRN [address] [place] [address] PCP - General Geriatric Medicine 07/18/23
--- OUTSIDE RECORDS SUMMARY | 2024-09-18 15:25 | XMS_ITS | Encounter Summary ---
[place] [address] Care Team Providers Care Terrazzo Polisher Helper Name Role Phone Jane Hector APRN Primary Care Provider [phone] Reason for Visit * Reason Onset Date Comments Medication Refill 09/04/2024 Encounter Details Date Type Department Care Team (Late st Contact Info) Description 09/04/2024 Refill [place] [phone] Yamile Jesus MD [facility] [place] [address] Class 3 severe obesity with serious comorbidity and body mass index (BMI) of 45.0 to 49.9 in adult, unspecified obesity type Social History [...] EST Office Visit [place] [phone] Yamile Jesus MD [facility] [place] [address] 12/12/2024 7:30 PM EST Procedure visit Sleep Center at [address] [place] [address] documented as of this encounter Goals [...] and frozen broccoli) with sharp cheddar or indian cheese (if you want) with piece of fruit (20-25 grams of protein) Option 2: plain yogurt, nauruan has more protein with small amount of [...] Option 2: tuna salad with 2 tbsp nauruan plain yogurt with 2 tbsp huff over spinach or lettuce If needed, Snack: All 10 grams of protein Option 1: hummus and raw vegetable and crackers (wheat thin) Option 2: cottage cheese (3/4 cup) with chives Option 3: grapes with nuts Other Nutrition Goals 60 grams of protein per day 20-25 grams of fiber per day Huff - 1 tbsp nauruan plain yogurt with 1 tbsp huff Limit [...] pickled beets 9. Limit the frappachinos from [employer], try a cold brew coffee in the hot weather Call Sleep medicine: [phone] documented as of this encounter Visit Diagnoses Diagnosis Class 3 severe obesity with serious comorbidity and body mass index (BMI) of 45.0 to 49.9 in adult, unspecified obesity type documented in this encounter Care Teams Terrazzo Polisher Helper Relationship Specialty Start Date End Date Jane Hector APRN [address] [place] [address] PCP - General Geriatric Medicine 07/18/23 documented as of this encounter
--- OUTSIDE RECORDS SUMMARY | 2024-09-18 15:25 | XMS_ITS | Encounter Summary ---
Author Organization [facility] [place] [address] Care Team Providers Care Art Installer Name Role Phone RosendaJane hatch ZACK Primary Care Provider [phone] Encounter Details Date Type Department Care Team (Late st Contact Info) Description 09/17/2024 Telephone Sleep Center at [facility] [address] [place] [address] Kaia Becker APRN [facility] [place] [address] Social History Tobacco Use Types Packs/Day Years Used Date Smoking Tobacco: Never Smokeless Tobacco: Never Sex and Gender Information Value Date Recorded Sex Assigned at Female 08/24/2023 3:35 PM EDT Gender Identity Female 08/24/2023 3:29 PM EDT Sexual Orientation Straight 08/24/2023 3: 35 PM EDT documented as of this encounter Miscellaneous Notes * Telephone Encounter - NhiKeysha venegas - 09/17/2024 4:26 PM EST Message: Jes calling in to schedule her sleep study. She is wondering if there is any kind of cafe in the building she can go to in the morning or if there is any kind of shuttle to take her to [facility] so that she can get breakfast in the morning. She is diabetic and will bring the necessary snacks and medications she just has to eat breakfast at a certain time and cannot be late withit. She also does not drive so would need transportation. Please call Jes back to discuss. Ask caller their first and last name and relationship to the patient: Jes Best time to call back: any Ok to leave a message: yes Ok to send - message: yes Offered Appointment: yes MA/Nurse/Laborer Cutting Tool contacted via: Message: yes Call: no Pager: no documented in this encounter Plan of Treatment Upcoming Encounters Date Type Department Care Team (Late st Contact Info) Description 10/04/2024 3:30 PM EST Office Visit [place] [address] Yamile Jesus MD [facility] [address] [facility] [facility] [address] 12/12/2024 7:30 PM EST Procedure visit Sleep Center at [facility] [address] [place] [address] documented as of this encounter Goals Goal [...] grams of protein) Option 2: plain yogurt, tajik has more protein with small amount of [...] Option 2: tuna salad with 2 tbsp tajik plain yogurt with 2 tbsp huff over spinach or lettuce If needed, Snack: All 10 grams of protein Option 1: hummus and raw vegetable and crackers (wheat thin) Option 2: cottage cheese (3/4 cup) with chives Option 3: grapes with nuts Other Nutrition Goals 60 grams of protein per day 20-25 grams of fiber per day Huff - 1 tbsp tajik plain yogurt with 1 tbsp huff Limit [...] in the hot weather Call Sleep medicine: [phone] documented as of this encounter Visit Diagnoses Not on filedocumented in this encounter Care Teams Art Installer Relationship Specialty Start Date End Date Jane Hector APRN [address] [place] [address] PCP - General Geriatric Medicine 07/18/23 documented as of this encounter
--- OUTSIDE RECORDS SUMMARY | 2024-09-18 15:25 | XMS_ITS | Encounter Summary ---
Author Organization [facility] [place] [address] Care Team Providers Care General Labor Forklift Operator Name Role Phone Jane Hector APRN Primary Care Provider [phone] Reason for Visit * Reason Comments Medication Refill Encounter Details Date Type Department Care Team (Late st Contact Info) Description 07/30/2024 Refill [place] [address] Yamile Jesus MD [facility] [place] [address] Gastroesophageal reflux disease, unspecified whether esophagitis present Social History Tobacco Use Types Packs/Day [...] EST Office [place] [address] Yamile Jesus MD [facility] [place] [place] [address] 12/12/2024 7:30 PM EST Procedure visit Sleep Center at [facility] [address] [place] [address] documented as of this encounter Goals Goal Patient Goal Type Associated Problems Recent Progress Patient-Stated? Author Nutrition Goal Lifestyle No Gina Mendez, DANIAL Note: Nut[place] Goals: 07/22/24 TF 1.Try [place] [...] and frozen broccoli) with sharp cheddar or belizean cheese (if you want) with piece of [...] pickled beets 9. Limit the frappachinos from [facility], try a cold brew coffee in the hot weather Call Sleep medicine: [phone] documented as of this encounter Visit Diagnoses Diagnosis Gastroesophageal reflux disease, unspecified whether esophagitis present documented in this encounter Care Teams General Labor Forklift Operator Relationship Specialty Start Date End Date Jane Hector [place] [place] [address] PCP - General Geriatric Medicine 07/18/23 documented as of this encounter
--- OUTSIDE RECORDS SUMMARY | 2024-09-18 15:25 | XMS_ITS | Encounter Summary ---
[place] [address] Care Team Providers Care Tanning Wheel Operator Name Role Phone Jane Hector APRN Primary Care Provider [phone] Encounter Details Date Type Department Care Team (Late st Contact Info) Description 08/29/2024 Telephone Weight [place] [address] Yamile Jesus MD [facility] [address] [facility] [facility] [place], [place] [id number] Social History Tobacco Use Types Packs/Day Years Used Date Smoking Tobacco: Never Smokeless Tobacco: Never Sex and Gender Information Value Date Recorded Sex Assigned at Female 08/24/2023 3:35 PM EDT Gender Identity Female 08/24/2023 3:29 PM EDT Sexual Orientation Straight 08/24/2023 3: 35 PM EDT documented as of this encounter Miscellaneous Notes * Telephone Encounter - Tessy Damon - 08/29/2024 11:20 AM EST Message: Patient is looking for the referral from 12/03/22 bariatric surgery program to be re sent. Ask caller their first and last name and relationship to the patient: Jes Bello Best time to call back: Anytime Ok to leave a message: Yes Ok to send [facility] message: Yes Offered Appointment: NA MA/Nurse/Farm Rancher contacted via: Message: NA Call: NA Pager: NA documented in this encounter Plan of Treatment Upcoming Encounters Date Type Department Care Team (Late st Contact Info) Description 10/04/2024 3:30 PM EST Office Visit Weight and Wellness at [facility] [address] Yamile Jesus MD [facility] [address] [place] [address] 12/12/2024 7:30 PM EST Procedure visit Sleep Center at [facility] [address] [place] [place] [address] documented as of this encounter [...] and frozen broccoli) with sharp cheddar or british virgin islander cheese (if you want) with piece of fruit (20-25 grams of protein) Option 2: plain yogurt, surinamese has more protein with small amount of [...] Option 2: tuna salad with 2 tbsp surinamese plain yogurt with 2 tbsp huff over spinach or lettuce If needed, Snack: All 10 grams of protein Option 1: hummus and raw vegetable and crackers (wheat thin) Option 2: cottage cheese (3/4 cup) with chives Option 3: grapes with nuts Other Nutrition Goals 60 grams of protein per day 20-25 grams of fiber per day Huff - 1 tbsp surinamese plain yogurt with 1 tbsp huff Limit [...] pickled beets 9. Limit the frappachinos from [employer], try a cold brew coffee in the hot weather Call Sleep medicine: [phone] documented as of this encounter Visit Diagnoses Not on filedocumented in this encounter Care Teams Tanning Wheel Operator Relationship Specialty Start Date End Date Jane Hector APRN [address] [facility] [place] [address] PCP - General Geriatric Medicine 07/18/23 documented as of this encounter
--- OUTSIDE RECORDS SUMMARY | 2024-09-18 15:25 | XMS_ITS | Encounter Summary ---
[place] [address] Care Team Providers Care Medicine Teacher Name Role Phone Jane Hector APRN Primary Care Provider [phone] Reason for Visit * Reason Onset Date Comments Bumped Appointment 05/28/2024 Encounter Details Date Type Department Care Team (Late st Contact Info) Description 05/28/2024 Telephone [place] [address] Nany Dobson Bumped Appointment Social History Tobacco [...] Left message and sent a letter via [employer] message and postal mail for the patient to reschedule 06/05/2024 bumped/cancelled appointment with Dr. Yamile Jesus in Weight and Wellness, due to a schedule change. Call Center- Please connect patient with engineering secretary or if not available call skill GI C Skill for rescheduling into held time. *Held time on ok per provider to be in person or virtual. documented in this encounter Plan of Treatment Upcoming Encounters Date Type Department Care Team (Late st Contact Info) Description 10/04/2024 3:30 PM EST Office [place] [address] Yamile Jesus MD [facility] [address] [facility] [address] 12/12/2024 7:30 PM EST Procedure visit Sleep Center at [facility] [address] [place] [address] documented as of this encounter Goals Goal [...] and frozen broccoli) with sharp cheddar or irish cheese (if you want) with piece of fruit (20-25 grams of protein) Option 2: plain yogurt, uzbek has more protein with small amount of [...] Option 2: tuna salad with 2 tbsp uzbek plain yogurt with 2 tbsp huff over spinach or lettuce If needed, Snack: All 10 grams of protein Option 1: hummus and raw vegetable and crackers (wheat thin) Option 2: cottage cheese (3/4 cup) with chives Option 3: grapes with nuts Other Nutrition Goals 60 grams of protein per day 20-25 grams of fiber per day Huff - 1 tbsp uzbek plain yogurt with 1 tbsp huff Limit [...] in the hot weather Call Sleep medicine: [phone] documented as of this encounter Visit Diagnoses Not on filedocumented in this encounter Care Teams Medicine Teacher Relationship Specialty Start Date End Date Jane Hector [place] [address] PCP - General Geriatric Medicine 07/18/23 documented as of this encounter
--- OUTSIDE RECORDS SUMMARY | 2024-09-18 15:25 | XMS_ITS | Encounter Summary ---
[place] [address] Care Team Providers Care Comptometer Operator Name Role Phone Jane Hector APRN Primary Care Provider [phone] Reason for Visit * Reason Onset Date Comments Other 07/04/2024 Encounter Details Date Type Department Care Team (Late st Contact Info) Description 07/04/2024 Telephone Weight [place] [phone] Yamile Jesus MD [facility] [address] [facility] [facility] [address] Other Social History Tobacco Use Types Packs/Day Years Used Date Smoking Tobacco: Never Smokeless Tobacco: Never Sex and Gender Information Value Date Recorded Sex Assigned at Female 08/24/2023 3:35 PM EDT Gender Identity Female 08/24/2023 3:29 PM EDT Sexual Orientation Straight 08/24/2023 3: 35 PM EDT documented as of this encounter Miscellaneous Notes * Telephone Encounter - Jazz Danielle - 07/04/2024 1:49 PM EDT Message: Patient requesting doctors note or letter to [facility] that should states providers name, that patient is being treated for diabetes, high blood pressure and obesity , for how long and recommends that patient needs to go to the gym. Please upload to [facility] portal. Ask caller their first and last name and relationship to the patient: self Best time to call back: anytime Ok to leave a message: y Ok to send [facility] message: y Offered Appointment: n Message: y Call made to accredited legal secretary or nurse : n Pager: n documented in this encounter Plan of Treatment Upcoming Encounters Date Type Department Care Team (Late st Contact Info) Description 10/04/2024 3:30 PM EST Office Visit Weight and Wellness at [facility] [place] [address] Yamile Jesus MD [facility] [address] [facility] [facility] [address] 12/12/2024 7:30 PM EST Procedure visit Sleep Center at [facility] [address] [place] [address] documented as of this encounter Goals Goal [...] and frozen broccoli) with sharp cheddar or lebanese cheese (if you want) with piece of fruit (20-25 grams of protein) Option 2: plain yogurt, omani has more protein with small amount of [...] Option 2: tuna salad with 2 tbsp omani plain yogurt with 2 tbsp huff over spinach or lettuce If needed, Snack: All 10 grams of protein Option 1: hummus and raw vegetable and crackers (wheat thin) Option 2: cottage cheese (3/4 cup) with chives Option 3: grapes with nuts Other Nutrition Goals 60 grams of protein per day 20-25 grams of fiber per day Huff - 1 tbsp omani plain yogurt with 1 tbsp huff Limit [...] in the hot weather Call Sleep medicine: [phone] documented as of this encounter Visit Diagnoses Not on filedocumented in this encounter Care Teams Comptometer Operator Relationship Specialty Start Date End Date Jane Hector APRN [facility] [place] [address] PCP - General Geriatric Medicine 07/18/23 documented as of this encounter
--- OUTSIDE RECORDS SUMMARY | 2024-09-18 15:25 | XMS_ITS | Encounter Summary ---
[place] [address] Care Team Providers Care Pot Annealer Name Role Phone Jane Hector ZACK Primary Care Provider [phone] Reason for Visit * Reason Onset Date Comments Other 05/23/2024 Encounter Details Date Type Department Care Team (Late st Contact Info) Description 05/23/2024 Telephone Sleep Center at [facility] [address] [place] [phone] Kaia Becker APRN [facility] [place] [address] Other Social History Tobacco Use Types Packs/Day [...] EST Office Visit [place] [address] Yamile Jesus MD [facility] [address] [facility] [facility] [address] 12/12/2024 7:30 PM EST Procedure visit Sleep Center at [address] [place] [phone] documented as of this encounter Goals Goal [...] and frozen broccoli) with sharp cheddar or paraguayan cheese (if you want) with piece of fruit (20-25 grams of protein) Option 2: plain yogurt, north korean has more protein with small amount [...] Option 2: tuna salad with 2 tbsp north korean plain yogurt with 2 tbsp huff over spinach or lettuce If needed, Snack: All 10 grams of protein Option 1: hummus and raw vegetable and crackers (wheat thin) Option 2: cottage cheese (3/4 cup) with chives Option 3: grapes with nuts Other Nutrition Goals 60 grams of protein per day 20-25 grams of fiber per day Huff - 1 tbsp north korean plain yogurt with 1 tbsp huff [...] in the hot weather Call Sleep medicine: [phone] documented as of this encounter Visit Diagnoses Not on filedocumented in this encounter Care Teams Pot Annealer Relationship Specialty Start Date End Date Jane Hector APRN [address] [place] [address] PCP - General Geriatric Medicine 07/18/23 documented as of this encounter
--- OUTSIDE RECORDS SUMMARY | 2024-09-18 15:25 | XMS_ITS | Encounter Summary ---
Author Organization [facility] [place] [address] Care Team Providers Care Social Work Nurse Name Role Phone Jane Hector ZACK Primary Care Provider [phone] Reason for Referral * Diagnostic Test (Routine) - New Request Specialty Diagnoses / Procedures Referred By Darvin segovia Referred To Contact Sleep Center Diagnoses Restless sleeper Periodic limb movement History of obstructive sleep apnea Snoring Procedures Sleep Study Diagnostic PSG / Split Night Kaia Becker APRN [facility] [place] [address] [facility] Sleep Medicine [address] [place] [address] Referral ID Status Reason Start Date Expiration Date Visits Requested Visits Authorized [id number] New Request Specialty Service Requested 09/11/2025 1 1 Encounter Details Date Type Department Care Team (Latest Contact Info) Description 09/09/2024 3:00 PM EST TH Visit (TeleHealth) Sleep Center at [facility] [address] [place] [phone] Kaia Becker APRN [facility] [place] [address] Restless sleeper; Periodic limb movement; History of obstructive sleep apnea; Snoring Social History Tobacco Use Types Packs/Day Years Used Date Smoking Tobacco: Never Smokeless Tobacco: Never Sex and Gender Information Value Date Recorded Sex Assigned at Female 08/24/2023 3:35 PM EDT Gender Identity Female 08/24/2023 3:29 PM EDT Sexual Orientation Straight 08/24/2023 3: 35 PM EDT documented as of this encounter Progress Notes * Kaia Becker, RIG WELDER - 09/09/2024 3:00 PM EST Sleep Medicine Telemedicine Follow-Up Note Patient is currently located at their home in [place] Patient provided verbal consent prior to initiation of this encounter and expressed understanding that the telemedicine visit may be billed similar to a clinic visit. CC: Ms. Jes Bello is a 63 y.o. female seen for telemedicine follow-up of Primary Insomnia and history of CIARA. HPI: She presents to discuss Insomnia and reports she has had the problem her entire life and has a strong family history of Insomnia. She most recently was on trazodone and reports she has not slept despite numerous medications. She was given a trial of Lunesta 1mg an dis not have any benefit, noting the dose was too low. She has discontinued bupropion as advised and still reports she is not sleeping. She currently is working with a psychiatrist and is on lithium with no reported benefit to her sleep. She reports she had a sleep study a long time ago and was told she had CIARA and limb movement. She is hesitant to have a sleep study because she feels she will not sleep. She reports she goes to bed at 9-10 p and does not feel she can close her eyes She does not feeling sleepy, feels tired but not sleepy She does fall asleep briefly during the day, sitting upright in chair, very light sleep At night she tosses and turns, trouble shutting mind off Kicks in her sleep Has tried: Camomile tea Benadryl helped in the past THC did not help Trazodone worked in the past and then stopped working OTC sleep aids might have work for a minute Tianna Mobley Hated the Cpap, Could not tolerate it , Now has special pillows Position - sleeps supine Snores less than in the past She reports doing CBT with her personal therapist, she denies specifically doing CBT for insomnia She is hesitant to consider a CIARA treatment but might consider Inspire if it was an option Time spent: total time of visit was 30 minutes, including face to face counseling, chart review anddocumentation I provided medical care services that are part of the ongoing care related to the patient's serious/complex condition. Assessment: Ms. Jes Bello is a 63 y.o. female seen for a follow-up of Insomnia, limb movement of sleep and history of CIARA. She has marked difficulty sleeping with highly fragmented sleep. She was hopeful that we would have a medication to help her insomnia today and we discussed why we don't prescribe usp sedatives for insomnia and that CBT-I is the gold standard. She thought she has done CBT-I but it was not specific to insomnia. She has had some sleep hygiene tips without success. We reviewed that the medications she has tried have been unsuccessful which is why a behavioral approach is preferred. It is entirely appropriate she continue to get medication management through psych iatry for conditions that may be contributing to her insomnia. She will consider CBT-I in the future. Additionally, we discussed how CIARA and limb movement may be contributing to her difficulty maintaining sleep. She is concerned that a sleep study will not be beneficial as she won't sleep. We discussed that it might be helpful for her to have evidence of overnight sleep even with the perception that she is not sleeping. We also discussed the nature of CIARA and that it likely persists as it does worsen with age. She agrees to try a study in order to assess if the CIARA persists. Recommendations: PSG no Split, pt has history of intolerance of CPAP, she might consider inspire Continue follow-up with psychiatry Follow-up: TBD based on findings of PSG The patient indicates understanding of these issues and agrees with the plan. documented in this encounter Plan of Treatment Upcoming Encounters Date Type Department Care Team (Late st Contact Info) Description 10/04/2024 3:30 PM EST Office Visit [place] [phone] Yamile Jesus MD [facility] [address] [facility] [facility] [place], [place] [phone] 12/12/2024 7:30 PM EST Procedure visit Sleep Center at [facility] [address] [place] [address] Scheduled Orders Name Type Priority Associated Diagnoses Orde r Schedule Sleep Study Diagnostic PSG / Split Night Sleep Center Routine Restless sleeper Periodic limb movement History of obstructive sleep apnea Snoring Expected: 09/11/2024, Expires: 09/10/2025 documented as of this encounter Goals Goal [...] and frozen broccoli) with sharp cheddar or uruguayan cheese (if you want) with piece of fruit (20-25 grams of protein) Option 2: plain yogurt, yemeni has more protein with small amount of [...] Option 2: tuna salad with 2 tbsp yemeni plain yogurt with 2 tbsp huff over spinach or lettuce If needed, Snack: All 10 grams of protein Option 1: hummus and raw vegetable and crackers (wheat thin) Option 2: cottage cheese (3/4 cup) with chives Option 3: grapes with nuts Other Nutrition Goals 60 grams of protein per day 20-25 grams of fiber per day Huff - 1 tbsp yemeni plain yogurt with 1 tbsp huff Limit [...] pickled beets 9. Limit the frappachinos from [employer], try a cold brew coffee in the hot weather Call Sleep medicine: [phone] documented as of this encounter Visit Diagnoses Diagnosis Restless sleeper Sleep disturbance, unspecified Periodic limb movement Periodic limb movement disorder History of obstructive sleep apnea Snoring Other dyspnea and respiratory abnormality documented in this encounter Care Teams Social Work Nurse Relationship Specialty Start Date End Date Jane Hector APRN [address] [place] [address] PCP - General Geriatric Medicine 07/18/23 documented as of this encounter
--- OUTSIDE RECORDS SUMMARY | 2024-09-18 15:25 | XMS_ITS | Encounter Summary ---
[place] [address] Care Team Providers Care Jewelry Sales Name Role Phone Jane Hector APRN Primary Care Provider [phone] Reason for Visit * Reason Onset Date Comments Medication Reaction 07/25/2024 Encounter Details Date Type Department Care Team (Late st Contact Info) Description 07/25/2024 Telephone [place] [address] Yamile Jesus MD [facility] [address] [facility] [facility] [address] Medication Reaction Social History Tobacco Use Types Packs/Day Years Used Date Smoking Tobacco: Never Smokeless Tobacco: Never Sex and Gender Information Value Date Recorded Sex Assigned at Female 08/24/2023 3:35 PM EDT Gender Identity Female 08/24/2023 3:29 PM EDT Sexual Orientation Straight 08/24/2023 3: 35 PM EDT documented as of this encounter Miscellaneous Notes * Telephone Encounter - Jazz Danielle - 07/25/2024 11:33 AM EDT Pharmacy or caller: self Medication: Mounjaro 15mg Message: Patient wants to let the provider know that patient having diarrhea , tried the OTC medication but it keeps coming back. Also, the other Naltrexone medication is working fine for sugar addiction. Please advise. Did you contact your pharmacy?: n documented in this encounter Plan of Treatment Upcoming Encounters Date Type Department Care Team (Late st Contact Info) Description 10/04/2024 3:30 PM EST Office Visit Weight and Wellness at [facility] [place] [address] Yamile Jesus MD [facility] [address] [facility] [facility] [address] 12/12/2024 7:30 PM EST Procedure visit Sleep Center at [facility] [address] [address] documented as of this encounter [...] and frozen broccoli) with sharp cheddar or east timorese cheese (if you want) with piece of [...] pickled beets 9. Limit the frappachinos from [employer], try a cold brew coffee in the hot weather Call Sleep medicine: [phone] documented as of this encounter Visit Diagnoses Not on filedocumented in this encounter Care Teams Jewelry Sales Relationship Specialty Start Date End Date Jane Hector APRN [address] [place] [address] PCP - General Geriatric Medicine 07/18/23 documented as of this encounter
--- OUTSIDE RECORDS SUMMARY | 2024-09-18 15:25 | XMS_ITS | Encounter Summary ---
Author Organization [facility] [place] [address] Care Team Providers Care Restaurant Cook Name Role Phone Jane Hector APRN Primary Care Provider [phone] Encounter Details Date Type Department Care Team (Late st Contact Info) Description 08/29/2024 Patient Outreach PNO Primary Care [address] [place] [phone] Gina Olivas CMA [address] [place] [id number] Social History Tobacco Use Types Packs/Day Years Used Date Smoking Tobacco: Never Smokeless Tobacco: Never Sex and Gender Information Value Date Recorded Sex Assigned at Female 08/24/2023 3:35 PM EDT Gender Identity Female 08/24/2023 3:29 PM EDT Sexual Orientation Straight 08/24/2023 3: 35 PM EDT documented as of this encounter Miscellaneous Notes * Telephone Encounter - Gina Olivas CMA - 08/29/2024 12:56 PM EST 08-29-24- patient has been identified on a [facility] medication adherence report of needinga refill of the lisinopril. Will confirm with patient. documented in this encounter Plan of Treatment Upcoming Encounters Date Type Department Care Team (Late st Contact Info) Description 10/04/2024 3:30 PM EST Office Visit [place] [address] Yamile Jesus MD [facility] [address] [facility] [place] [address] 12/12/2024 7:30 PM EST Procedure visit Sleep Center at [address] [place] [address] documented as of this encounter Goals [...] in the hot weather Call Sleep medicine: [phone] documented as of this encounter Visit Diagnoses Not on filedocumented in this encounter Care Teams Restaurant Cook Relationship Specialty Start Date End Date Jane Hector APRN [facility] [place] [address] PCP - General Geriatric Medicine 07/18/23 documented as of this encounter
--- OUTSIDE RECORDS SUMMARY | 2024-09-18 15:25 | XMS_ITS | Encounter Summary ---
Author Organization [facility] [place] [address] Care Team Providers Care Development Associate Name Role Phone Jane Hector APRN Primary Care Provider [phone] Encounter Details Date Type Department Care Team (Late st Contact Info) Description 07/04/2024 12:00 PM EDT Office Visit [place] [address] Yamile Jesus MD [facility] [address] [facility] [facility] [address] Class 3 severe obesity with serious comorbidity and body mass index (BMI) of 45.0 to 49.9 in adult, unspecified obesity type (Primary Dx); Type 2 diabetes mellitus without complication, unspecified whether assisted insulin use; Gastroesophageal reflux disease, unspecified whether [...] - Inhaled Oxygen Concentration - - Weight 122.1 kg (269 lb 1.6 oz) 024 12:02 PM EDT Height 162.6 cm (5' 4) 07/04/2024 12:0 2 PM EDT Body Mass Index 46.19 07/04/2024 12:02 PM EDT documented in this encounter Progress Notes * Yamile Jesus MD - 07/04/2024 12:00 PM EDTSummary: 9th visit with Images from the original note were not included. [facility] Patient Name: Jse Bello Date of : 1960 Age: 63 y.o. Jane Hector APRN Thank you for referring Jes Bello to the Weight and Wellness Center. I saw her for a follow-up visit today, 07/04/24. Please see changes to care as documented in the assessment and plan. CHIEF COMPLAINT: F/u for treatment of WHO Class 3 / EOSS Stage 2 Obesity, defined by BMI at presentation, with comorbidities:HTN, DM 2, anxiety/depression, thyroid disease. This is Visit #9 [facility] visit for this 63 y.o. patient. Initial weight 12/03/22: 284 lbs 02/03/2023, no new weight 04/14/2023, 251 lbs (- 33 lbs) 06/07/2023, 254 lbs (+ 3 lbs, - 30 lbs) 08/11/2023, 259 lbs (+ 4 lbs, - 26 lbs) 10/06/2023, 261 lbs (+ 2 lbs, - 24 lbs) 01/10/2024, 263 lbs (+ 2 lbs, - 23 lbs) 03/08/2024, no new weight 07/04/2024, 269 lbs [facility] Team: RD in the community HPI Nothing new going on, still not sleeping well. PCP started Elavil, up to 100 mg. Taking Mounaro 15 mg, some diarrhea, and gas both ends. Heartburn. PILLARS Stress - I do not know, 5-04/01, talking to therapist - not much over the summer. Sleep - not even an hour - not sure Exercise - not addressed Nutrition - Bingeing sugar is better on Mounjaro. Still sugar craving is her major issue. Hungry later in the day, 2-3 PM. Her big meal of the day. Stops eating around 6 pm. AOM: Currently taking: Mounjaro 15 mg AOM HX: Jardiance (DM 2) - unclear why she stopped Rybelsus (DM 2) -> changed to Mounjaro Ozempic 2 mg -> tachyphylaxis COMORBIDITIES ADDRESSED CIARA Untreated HTN HL FLD [...] needs f/u, refer to sleep med - seeing in August Self-monitoring: Food log Groups of interest: []HLP-ES [] HLP-MS [] HLP-LS []Culinary []ACT []Monthly Lifestyle Classes Discussion 07/04/24: Pillars reviewed. On 15 mg Mounjaro for a few months now, no wt loss and discussed study that looked at fast vs slow losers on tirzepatide. Understands this is assisted therapy; sleep deprivation also playing a big role in inability to lose weight. On Elavil now, has appt with sleep med. Describing sugar addiction, intolerable sugar cravings, will trial naltrexone to see if helps. Reviewed MOA and R/B/ASE. 3 month f/u. No data to display VITAL SIGNS: Vitals: 07/04/24 1202 Weight: 122.1 kg (269 lb 1.6 oz) Height: 162.6 cm (5' 4) Body mass index is 46.19 kg/m??. PHYSICAL EXAM: Gen: Alert and appropriate, [...] found for: GLUCFASTING No results found for: LCOAXMWV84 No results found for: 25OHVITD No results [...] time AOM management today: Mounjaro 15 mg - cont Naltrexone rx today Diagnoses and all orders for this visit: Class 3 severe obesity with serious comorbidity and body mass index (BMI) of 45.0 to 49.9 in adult,unspecified obesity type - naltrexone (Depade) 50 mg tablet; Take 1 tablet by mouth daily. Start with 1/2 tab by mouth dailyfor 1-2 weeks and if tolerates can increase to 1 tab in the morning. Type 2 diabetes mellitus without complication, unspecified whether ferry terminal agent insulin use - tirzepatide (Mounjaro) 15 mg/0.5 mL Pen Injector; Inject 15 mg subcutaneously once a week. Gastroesophageal reflux disease, unspecified whether esophagitis present Hypertension, unspecified type Mixed anxiety and depressive disorder Hypothyroidism, unspecified type CIARA (obstructive sleep apnea) Insomnia, unspecified type No orders of the defined types were placed in this encounter. Return in about 3 months (around 10/03/2024) for In person or Zoom, With me. Scheduled with DANIAL and Todays charge based on management of 1+ chronic diseases and medication management. min chart review min [id number] visit Min documentation time I spent time [...] EST Office Visit [place] [address] Yamile Jesus MD [facility] [address] [facility] [address] 12/12/2024 7:30 PM EST Procedure visit Sleep Center at [facility] [address] [place] [address] documented as of this encounter Goals Goal [...] grams of protein) Option 2: plain yogurt, turkish has more protein with small amount of [...] Option 2: tuna salad with 2 tbsp turkish plain yogurt with 2 tbsp huff over spinach or lettuce If needed, Snack: All 10 grams of protein Option 1: hummus and raw vegetable and crackers (wheat thin) Option 2: cottage cheese (3/4 cup) with chives Option 3: grapes with nuts Other Nutrition Goals 60 grams of protein per day 20-25 grams of fiber per day Huff - 1 tbsp turkish plain yogurt with 1 tbsp huff Limit [...] pickled beets 9. Limit the frappachinos from [employer], try a cold brew coffee in the hot weather Call Sleep medicine: [phone] documented as of this encounter Visit Diagnoses Diagnosis Class 3 severe obesity with serious comorbidity and body mass index (BMI) of 45.0 to 49.9 in adult, unspecified obesity type- Primary Type 2 diabetes mellitus without complication, unspecified whether ferry terminal agent insulin use Gastroesophageal reflux disease, unspecified whether esophagitis present Hypertension, unspecified type Mixed anxiety and depressive disorder Dysthymic disorder Hypothyroidism, unspecified type CIARA (obstructive sleep apnea) Obstructive sleep apnea (adult) (pediatric) Insomnia, unspecified type documented in this encounter Care Teams Development Associate Relationship Specialty Start Date End Date Jane Hector APRN [address] [place] [address] PCP - General Geriatric Medicine 07/18/23 documented as of this encounter
--- OUTSIDE RECORDS SUMMARY | 2024-09-18 15:25 | XMS_ITS | Encounter Summary ---
[place] [address] Care Team Providers Care Special Education Paraprofessional Name Role Phone Jane Hector APRN Primary Care Provider [phone] Encounter Details Date Type Department Care Team (Late st Contact Info) Description 06/28/2024 Telephone Weight [place] [phone] Yamile Jesus MD [facility] DR [facility] MED[facility] [place], [place] [phone] Social History Tobacco Use Types Packs/Day Years Used Date Smoking Tobacco: Never Smokeless Tobacco: Never Sex and Gender Information Value Date Recorded Sex Assigned at Female 08/24/2023 3:35 PM EDT Gender Identity Female 08/24/2023 3:29 PM EDT Sexual Orientation Straight 08/24/2023 3: 35 PM EDT documented as of this encounter Miscellaneous Notes * Telephone Encounter - Gina Gillespie RN - 07/02/2024 11:37 AM EDT Called pt. She was hoping that her local gym [employer] would allow her to attend with a prescription from Dr. Jesus. She would need a prescription (letter form) written and will discuss it on more detail at her visit on . * Telephone Encounter - [place] - 06/28/2024 11:45 AM EDT Message: Patient calling requesting a prescription for the gym and exercise. Patient will pick up truck driver at her next appointment Ask caller their first and last name and relationship to the patient: Self Phone: [phone] Best time to call back: Any Ok to leave a message: Yes Ok to send my- message: - Offered Appointment: - Message: - Call:- Pager:- documented in this encounter Plan of Treatment Upcoming Encounters Date Type Department Care Team (Late st Contact Info) Description 10/04/2024 3:30 PM EST Office Visit Weight [place] [address] Yamile Jesus MD [facility] [address] [facility] [address] 12/12/2024 7:30 PM EST Procedure visit Sleep Center at [facility] [address] [place] [address] documented as of this encounter Goals Goal [...] grams of protein) Option 2: plain yogurt, kittitian has more protein with small amount of [...] Option 2: tuna salad with 2 tbsp kittitian plain yogurt with 2 tbsp huff over spinach or lettuce If needed, Snack: All 10 grams of protein Option 1: hummus and raw vegetable and crackers (wheat thin) Option 2: cottage cheese (3/4 cup) with chives Option 3: grapes with nuts Other Nutrition Goals 60 grams of protein per day 20-25 grams of fiber per day Huff - 1 tbsp kittitian plain yogurt with 1 tbsp huff Limit [...] in the hot weather Call Sleep medicine: [phone] documented as of this encounter Visit Diagnoses Not on filedocumented in this encounter Care Teams Special Education Paraprofessional Relationship Specialty Start Date End Date Jane Hector [place] [address] PCP - General Geriatric Medicine 07/18/23 documented as of this encounter
--- OUTSIDE RECORDS SUMMARY | 2024-09-18 15:25 | XMS_ITS | Encounter Summary ---
Author Organization [facility] [place] [address] Care Team Providers Care Supervisor Mold Cleaning And Storage Name Role Phone Jane Hector APRN Primary Care Provider [phone] Encounter Details Date Type Department Care Team (Latest Contact Info) Description 07/22/2024 1:00 PM EDT TH Visit (TeleHealth) [place] [address] [facility] [place] [address] Type 2 diabetes mellitus without complication, unspecified whether fci insulin use; Class 3 severe obesity with [...] this encounter Patient Instructions * Patient Instructions* Tawny Harris I, DANIAL - 07/22/2024 1:00 PM EDT Goals Addressed This Visit's Progress Nutrition Goal Nutriton Goals: 07/22/24 TF 1.Try Bolthouse Dressing/Dip [...] and frozen broccoli) with sharp cheddar or mauritanian cheese (if you want) with piece of fruit (20-25 grams of protein) Option 2: plain yogurt, slovak has more protein with small amount of [...] Option 2: tuna salad with 2 tbsp slovak plain yogurt with 2 tbsp huff over spinach or lettuce If needed, Snack: All 10 grams of protein Option 1: hummus and raw vegetable and crackers (wheat thin) Option 2: cottage cheese (3/4 cup) with chives Option 3: grapes with nuts Other Nutrition Goals 60 grams of protein per day 20-25 grams of fiber per day Huff - 1 tbsp slovak plain yogurt with 1 tbsp huff Limit [...] in the hot weather Call Sleep medicine: [phone] documented in this encounter Progress Notes * Tawny Harris RD - 07/22/2024 1:00 PM EDT Nutrition Intervention for Weight Management Follow-up RD visit with CARO Merritt 1960 Weight Today: Wt Readings from Last 3 Encounters: 07/04/24 122.1 kg (269 lb 1.6 oz) 01/10/24 119.7 kg (263 lb 12.8 oz) 11/01/23 117.9 kg (260 lb) BMI Readings from Last 3 Encounters: 07/04/24 46.19 kg/m?? 01/10/24 45.28 kg/m?? 11/01/23 44.63 kg/m?? Pertinent Meds: Mounjaro 15 mg; Naltrexone Interview: Pt gets meals on wheels and does not like to cook very much. Looking into [employer] (for meals for cooking for one). Pt feels like she does not eat enough veggies as they spoil because she is not eating them fast enough(no meal plan in place). Does not like frozen veggies; prefers raw veggies. Bought a bag of oranges and they spoiled and same with a zuccini which she prefers raw. Did b uy a cake for herself but it spoiled. Pt has been dehydated a few times (and hospitalized)- but tries not to drink due to overactive bladder. Poor sleep as well which is being addressed. The challenge AOM is making not hungry and blood sugars keep dropping; feels shaky and her nerves are twitchy. Food Tracking: Typical Dietary Intake: 2 coffees with whole milk B: 1-2 cups unsweet yogurt (local) L: MOW - beef stroganoff and small portion of mashed potato and broccoli; today ate some turkey breast S: 6 squares of dark chocolate (was proud that she did not eat it all) D: S: Typical Beverages: [x] coffee / tea [x] water - (total: less than 60 ounces/day [x] plain [] sugar-free additive [] seltzer [] diet soda or other [] regular soda [] Juice or other sugar-sweetened [] Milk [] Alcohol - (How much? Appetite/Hunger: [x] Poor appetite r/t AOM [] Currently well-managed [] Not managed (see interview) Nutrition topics covered today: [] Eating an appropriate amount of food for your body, limitations of caloric restriction and undereating [] Drinking an appropriate amount of fluid for your body [] Grazing / skipping / restricting [] Unplanned eating [] Scheduled times / frequency of eating [] Reduce highly processed foods, refined carbohydrates, in favor of whole foods [] Reduce sweet taste in your diet (whether by sugar or non-nutritive sweeteners) [] Heart healthy fatty acids [x] Increase fruits and non-starchy veggies [x] Increase fiber through f&v, nuts/seeds, whole grains, legumes (goal of 22-28 g/day women ; 28-34 g/day men) [] Adequate protein intake (handout provided? [] ) [] Foods rich in pre/probiotics [] Meal planning [] Reduce sodium intake to goal of 2300 mg or less per day, 1500 mg lower target with cardiovascular risk factors or disease Nutrition Assessment: Inconsistent food intake [x] Needs additional dietary support to reach nutrition goals. Follow up plan below. [] No further RD visits to be scheduled at this time as patient and this short story writer have agreed that: [] Nutrition needs being met, no further support is needed [] Current barriers make nutrition intervention inappropriate at this time, may revisit in the future Barriers/Ch[place]eneges: Low appetite/Low desire to cook - food spoils Nutrition Goals updated today: Goals Addressed This Visit's Progress Nutrition Goal Nutriton Goals: 07/22/24 TF 1.Try Bolthouse Dressing/Dip [...] and frozen broccoli) with sharp cheddar or mauritanian cheese (if you want) with piece of fruit (20-25 grams of protein) Option 2: plain yogurt, slovak has more protein with small amount of [...] Option 2: tuna salad with 2 tbsp slovak plain yogurt with 2 tbsp huff over spinach or lettuce If needed, Snack: All 10 grams of protein Option 1: hummus and raw vegetable and crackers (wheat thin) Option 2: cottage cheese (3/4 cup) with chives Option 3: grapes with nuts Other Nutrition Goals 60 grams of protein per day 20-25 grams of fiber per day Huff - 1 tbsp slovak plain yogurt with 1 tbsp huff Limit [...] in the hot weather Call Sleep medicine: [phone] Handouts provided today: Carb Counting Booklet Monitor/Evaluate: Return in 11 weeks (on 10/07/2024) for Telehealth. Thank you Tawny Harris MS RD LD 30 minutes were spent [id number] with this patient today, whether in person or by zoom as specified above documented in this encounter Plan of Treatment Upcoming Encounters Date Type Department Care Team (Late st Contact Info) Description 10/04/2024 3:30 PM EST Office Visit Weight and Wellness at [facility] [place] [address] Yamile Jesus MD [facility] [address] [facility] [address] 12/12/2024 7:30 PM EST Procedure visit Sleep Center at [facility] [address] [place] [address] documented as of this encounter Goals Goal [...] and frozen broccoli) with sharp cheddar or mauritanian cheese (if you want) with piece of fruit (20-25 grams of protein) Option 2: plain yogurt, slovak has more protein with small amount of [...] Option 2: tuna salad with 2 tbsp slovak plain yogurt with 2 tbsp huff over spinach or lettuce If needed, Snack: All 10 grams of protein Option 1: hummus and raw vegetable and crackers (wheat thin) Option 2: cottage cheese (3/4 cup) with chives Option 3: grapes with nuts Other Nutrition Goals 60 grams of protein per day 20-25 grams of fiber per day Huff - 1 tbsp slovak plain yogurt with 1 tbsp huff Limit [...] in the hot weather Call Sleep medicine: [phone] documented as of this encounter Visit Diagnoses Diagnosis Type 2 diabetes mellitus without complication, unspecified whether tsa screener insulin use Class 3 severe obesity with serious comorbidity and body mass index (BMI) of 45.0 to 49.9 in adult, unspecified obesity type documented in this encounter Care Teams Supervisor Mold Cleaning And Storage Relationship Specialty Start Date End Date Jane Hector APRN [address] [place] [address] PCP - General Geriatric Medicine 07/18/23 documented as of this encounter
--- OUTSIDE RECORDS SUMMARY | 2024-09-18 15:25 | XMS_ITS | Encounter Summary ---
[place] [address] Care Team Providers Care Sub Prior Name Role Phone Jane Hector APRN Primary Care Provider [phone] Encounter Details Date Type Department Care Team (Late st Contact Info) Description 07/22/2024 Telephone [place] [address] Ag Patel Social History Tobacco Use Types Packs/Day Years Used Date Smoking Tobacco: Never Smokeless Tobacco: Never Sex and Gender Information Value Date Recorded Sex Assigned at Female 08/24/2023 3:35 PM EDT Gender Identity Female 08/24/2023 3:29 PM EDT Sexual Orientation Straight 08/24/2023 3: 35 PM EDT documented as of this encounter Miscellaneous Notes * Telephone Encounter - Ag Patel - 07/22/2024 10:46 AM EDT Inbound call from patient, transferred from [facility], requesting link for today's video visit with Tawny Harris. Patient states that she does not have zoom. I advised patient that zoom is no longer needed and to click the link at [phone]. Patient confirmed link received while on the phone documented in this encounter Plan of Treatment Upcoming Encounters Date Type Department Care Team (Late st Contact Info) Description 10/04/2024 3:30 PM EST Office [place] [address] Yamile Jesus MD [facility] [address] [facility] [address] 12/12/2024 7:30 PM EST Procedure visit Sleep Center at [address] [place] [address] documented as of this encounter Goals Goal [...] and frozen broccoli) with sharp cheddar or italian cheese (if you want) with piece of fruit (20-25 grams of protein) Option 2: plain yogurt, turkmen has more protein with small amount of [...] Option 2: tuna salad with 2 tbsp turkmen plain yogurt with 2 tbsp huff over spinach or lettuce If needed, Snack: All 10 grams of protein Option 1: hummus and raw vegetable and crackers (wheat thin) Option 2: cottage cheese (3/4 cup) with chives Option 3: grapes with nuts Other Nutrition Goals 60 grams of protein per day 20-25 grams of fiber per day Huff - 1 tbsp turkmen plain yogurt with 1 tbsp huff Limit [...] in the hot weather Call Sleep medicine: [phone] documented as of this encounter Visit Diagnoses Not on filedocumented in this encounter Care Teams Sub Prior Relationship Specialty Start Date End Date Jane Hector APRN [address] [place] [address] PCP - General Geriatric Medicine 07/18/23 documented as of this encounter
--- OUTSIDE RECORDS SUMMARY | 2024-09-18 15:25 | XMS_ITS | Encounter Summary ---
[place] [address] Care Team Providers Care Cable Maker Name Role Phone aJne Hector APRN Primary Care Provider [phone] Reason for Visit * Reason Comments Medication Refill Encounter Details Date Type Department Care Team (Late st Contact Info) Description 09/04/2024 Refill [place] [address] Yamile Jesus MD [facility] [place] [address] Class 3 severe obesity with serious comorbidity [...] EST Office Visit [place] [address] Yamile Jesus MD [facility] [place] [address] 12/12/2024 7:30 PM EST Procedure visit Sleep Center at [facility] [address] [place] [address] documented as of this encounter Goals [...] and frozen broccoli) with sharp cheddar or danish cheese (if you want) with piece of [...] pickled beets 9. Limit the frappachinos from [employer], try a cold brew coffee in the hot weather Call Sleep medicine: [phone] documented as of this encounter Visit Diagnoses Diagnosis Class 3 severe obesity with serious comorbidity and body mass index (BMI) of 45.0 to 49.9 in adult, unspecified obesity type documented in this encounter Care Teams Cable Maker Relationship Specialty Start Date End Date Jane Hector APRN [address] [place] [address] PCP - General Geriatric Medicine 07/18/23 documented as of this encounter
--- OUTSIDE RECORDS SUMMARY | 2024-09-18 15:25 | XMS_ITS | Encounter Summary ---
Author Organization [facility] [address] Care Team Providers Care Jewel Hole Rough Opener Name Role Phone Jane Hector APRN Primary Care Provider [phone] Encounter Details Date Type Department Care Team (Latest Contact Info) Description 07/04/2024 Travel Social History Tobacco Use Types Packs/Day [...] EST Office Visit [place] [address] Yamile Jesus MD [facility] [address] [facility] [address] 12/12/2024 7:30 PM EST Procedure visit Sleep Center at [place] [address] [place] [address] documented as of this encounter Goals Goal [...] in the hot weather Call Sleep medicine: [phone] documented as of this encounter Visit Diagnoses Not on filedocumented in this encounter Care Teams Jewel Hole Rough Opener Relationship Specialty Start Date End Date Jane Hector APRN [address] [place] [address] PCP - General Geriatric Medicine 07/18/23 documented as of this encounter
--- OUTSIDE RECORDS SUMMARY | 2024-09-18 15:26 | XMS_ITS | Encounter Summary ---
[place] [address] Care Team Providers Care Architect Manager Name Role Phone Jane Hector APRN Primary Care Provider [phone] Reason for Visit * Reason Onset Date Comments Appointment 11/07/2023 Encounter Details Date Type Department Care Team (Late st Contact Info) Description 11/07/2023 Telephone [place] [address] Hollie Ambrose Appointment Social History Tobacco Use [...] EST Left voicemail/message and sent letter via [employer] portal about scheduling appointment(s) with [facility] [...] EST Office Visit Weight and Wellness at [facility] [place] [address] Yamile Jesus MD [facility] [address] [facility] [address] 12/12/2024 7:30 PM EST Procedure visit Sleep Center at [facility] [address] [address] documented as of this encounter [...] and frozen broccoli) with sharp cheddar or bruneian cheese (if you want) with piece of fruit (20-25 grams of protein) Option 2: plain yogurt, swazi has more protein with small amount of [...] Option 2: tuna salad with 2 tbsp swazi plain yogurt with 2 tbsp huff over spinach or lettuce If needed, Snack: All 10 grams of protein Option 1: hummus and raw vegetable and crackers (wheat thin) Option 2: cottage cheese (3/4 cup) with chives Option 3: grapes with nuts Other Nutrition Goals 60 grams of protein per day 20-25 grams of fiber per day Huff - 1 tbsp swazi plain yogurt with 1 tbsp huff Limit [...] pickled beets 9. Limit the frappachinos from [facility], try a cold brew coffee in the hot weather Call Sleep medicine: [phone] documented as of this encounter Visit Diagnoses Not on filedocumented in this encounter Care Teams Architect Manager Relationship Specialty Start Date End Date Jane [place] [address] PCP - General Geriatric Medicine 07/18/23 documented as of this encounter
--- OUTSIDE RECORDS SUMMARY | 2024-09-18 15:26 | XMS_ITS | Encounter Summary ---
Author Organization [facility] [place] [address] Care Team Providers Care Lunchroom Mother Name Role Phone Jane Hector APRN Primary Care Provider [phone] Encounter Details Date Type Department Care Team (Late st Contact Info) Description 01/05/2024 Telephone [place] [address] Yamile Jesus MD [facility] [address] [facility] [place], [place] [phone] Social History Tobacco Use Types Packs/Day Years [...] 11:42 AM EDT Patient states both: [facility] [address] [place] [address] ?? And [facility] [address] [place] [address] ?? Have two sizes of the Ozempic. [...] EST Office Visit [place] [address] Yamile Jesus MD [facility] [address] [facility] [address] 12/12/2024 7:30 PM EST Procedure visit Sleep Center at [facility] [address] [place] [address] documented as of this encounter Goals Goal [...] pickled beets 9. Limit the frappachinos from [employer], try a cold brew coffee in the hot weather Call Sleep medicine: [phone] documented as of this encounter Visit Diagnoses Not on filedocumented in this encounter Care Teams Lunchroom Mother Relationship Specialty Start Date End Date Jane Hector APRN [address] [place] [address] PCP - General Geriatric Medicine 07/18/23 documented as of this encounter
--- OUTSIDE RECORDS SUMMARY | 2024-09-18 15:26 | XMS_ITS | Encounter Summary ---
[place] [address] Care Team Providers Care It Infrastructure Consultant Name Role Phone Jane Hector APRN Primary Care Provider [phone] Reason for Visit * Reason Onset Date Comments Appointment 01/22/2024 Encounter Details Date Type Department Care Team (Late st Contact Info) Description 01/22/2024 Telephone [place] [address] Nany Dobson Appointment Social History Tobacco Use [...] EST Office Visit Weight and Wellness at [facility] [place] [place] [address] Yamile Jesus MD [facility] [address] [facility] [address] 12/12/2024 7:30 PM EST Procedure visit Sleep Center at [facility] [address] [place] [address] documented as of this encounter Goals Goal [...] and frozen broccoli) with sharp cheddar or lao cheese (if you want) with piece of [...] in the hot weather Call Sleep medicine: [phone] documented as of this encounter Visit Diagnoses Not on filedocumented in this encounter Care Teams It Infrastructure Consultant Relationship Specialty Start Date End Date Jane Hector APRN [place] [address] PCP - General Geriatric Medicine 07/18/23 documented as of this encounter
--- OUTSIDE RECORDS SUMMARY | 2024-09-18 15:26 | XMS_ITS | Encounter Summary ---
Author Organization [facility] [place] [address] Care Team Providers Care Film Technician Name Role Phone Jane Hector APRN Primary Care Provider [phone] Reason for Visit * Reason Onset Date Comments Other 03/12/2024 Encounter Details Date Type Department Care Team (Late st Contact Info) Description 03/12/2024 Telephone [place] [address] Yamile Jesus MD [facility] [address] [facility] [address] Other Social History Tobacco Use Types Packs/Day [...] Gillespie RN - 03/13/2024 2:38 PM EDT [facility] message sent to pt regarding sleep medicine [...] suggested dose. Patient also expressed to this ticket writer she does not want to have the [...] EST Office Visit [place] [address] Yamile Jesus MD [facility] [address] [facility] [address] 12/12/2024 7:30 PM EST Procedure visit Sleep Center at [address] [place] [address] documented as of this encounter Goals Goal [...] and frozen broccoli) with sharp cheddar or northern irish cheese (if you want) with piece of fruit (20-25 grams of protein) Option 2: plain yogurt, guatemalan has more protein with small amount of [...] Option 2: tuna salad with 2 tbsp guatemalan plain yogurt with 2 tbsp huff over spinach or lettuce If needed, Snack: All 10 grams of protein Option 1: hummus and raw vegetable and crackers (wheat thin) Option 2: cottage cheese (3/4 cup) with chives Option 3: grapes with nuts Other Nutrition Goals 60 grams of protein per day 20-25 grams of fiber per day Huff - 1 tbsp guatemalan plain yogurt with 1 tbsp huff Limit [...] pickled beets 9. Limit the frappachinos from [employer], try a cold brew coffee in the hot weather Call Sleep medicine: [phone] documented as of this encounter Visit Diagnoses Not on filedocumented in this encounter Care Teams Film Technician Relationship Specialty Start Date End Date Jane Hector APRN [facility] [place] [address] PCP - General Geriatric Medicine 07/18/23 documented as of this encounter
--- OUTSIDE RECORDS SUMMARY | 2024-09-18 15:26 | XMS_ITS | Encounter Summary ---
[place] [address] Care Team Providers Care Medical Staff Services Coordinator Name Role Phone Jane Hector APRN Primary Care Provider [phone] Reason for Visit * Reason Onset Date Comments Prior Authorization 10/20/2023 Mounjaro 12. 5 mg/0.5 mL Pen Injector Encounter Details Date Type Department Care Team (Late st Contact Info) Description 10/20/2023 Telephone [place] [address] Margarita Allen CMA Prior Authorization [...] Date: 10/24/2023 End Date: 10/22/2024 Case/Reference #: [id number] Approval Letter will be scanned into media once received. * Telephone Encounter - Margarita Allen CMA - 10/20/2023 8:43 AM ESTSummary: Submitted PA Submitted Submitted Date: Date Submitted: 10/24/2023 Medication Prior Authorization Patient: Jes Bello Patient : 1960 Insurance Company: [facility] MANAGED MEDICARE Sent via: [employer] Meds Son: [id number] Physician: Yamile Jesus MD Medication Requested: Mounjaro 12.5 mg/0.5 mL Pen Injector Frequency/Sig: Inject 15 mg subcutaneously once a week. Disp: 2 mL Refills: 3 Currently taking: yes If yes, how lon01/2023 Diagnosis for this medication: Type 2 diabetes mellitus without complication, unspecified whether terminal operations manager insulin use [E11.9] Prior medications trialed in [...] EST Office [place] [address] Yamile Jesus MD [facility] [address] [facility] [address] 12/12/2024 7:30 PM EST Procedure visit Sleep Center at [facility] [address] [place] [address] documented as of this encounter Goals Goal [...] grams of protein) Option 2: plain yogurt, swedish has more protein with small amount of [...] Option 2: tuna salad with 2 tbsp swedish plain yogurt with 2 tbsp huff over spinach or lettuce If needed, Snack: All 10 grams of protein Option 1: hummus and raw vegetable and crackers (wheat thin) Option 2: cottage cheese (3/4 cup) with chives Option 3: grapes with nuts Other Nutrition Goals 60 grams of protein per day 20-25 grams of fiber per day Huff - 1 tbsp swedish plain yogurt with 1 tbsp huff Limit [...] in the hot weather Call Sleep medicine: [phone] documented as of this encounter Visit Diagnoses Not on filedocumented in this encounter Care Teams Medical Staff Services Coordinator Relationship Specialty Start Date End Date Jane Hector APRN [address] [place] [address] PCP - General Geriatric Medicine 07/18/23 documented as of this encounter
--- OUTSIDE RECORDS SUMMARY | 2024-09-18 15:26 | XMS_ITS | Encounter Summary ---
[place] [address] Care Team Providers Care Sheet Metal Former Name Role Phone Jane Hector APRN Primary Care Provider [phone] Reason for Visit * Reason Comments Prior Authorization Ozempic 1mg Encounter Details Date Type Department Care Team (Late st Contact Info) Description 01/09/2024 Specialty [place] [phone] Betsy Jovel, TERRI Social History Tobacco Use [...] 1960 Patient Address: [address] [address] (home) Medication Name: OZEMPIC 1 MG/DOSE (4 MG/3 ML) SUBCUTANEOUS PEN INJECTOR Medication ID: Patient Location: [facility] Patient Location Comment: Medication Strength Frequency Requested: To be prescribed Qty/Day Supply: 01/19 New Start: New to Therapy Diagnosis & ICD-10 Code: Diabetes Subscriber Insurance: [employer] Subscriber Insurance Comment: Phone: Fax: Physician: YAMILE UGALDE Physician Comment : PA Status: PA Not Needed Insurance mandated Pharmacy: Fillable at [facility] Specialty Pharmacy: Yes Insurance requirements/notes: None Copay: $0 Copay assistance: Copay assistance comment: Pharmacy staff will be reaching out to the patient to inform them of their medication[facility]. If applicable, a pharmacist will speak with the patient to offer our specialty pharmacy services and to arrange delivery of their medication. Betsy Jovel CPHT 01/09/24 1:21 PM documented in this encounter Plan of Treatment Upcoming Encounters Date Type Department Care Team (Late st Contact Info) Description 10/04/2024 3:30 PM EST Office Visit Weight [place] [address] Yamile Ugalde MD [facility] [address] [facility] [address] 12/12/2024 7:30 PM EST Procedure visit Sleep Center at [place] [address] [place] [address] documented as of this encounter Goals Goal [...] and frozen broccoli) with sharp cheddar or costa rican cheese (if you want) with piece of fruit (20-25 grams of protein) Option 2: plain yogurt, dominican has more protein with small amount of [...] Option 2: tuna salad with 2 tbsp dominican plain yogurt with 2 tbsp huff over spinach or lettuce If needed, Snack: All 10 grams of protein Option 1: hummus and raw vegetable and crackers (wheat thin) Option 2: cottage cheese (3/4 cup) with chives Option 3: grapes with nuts Other Nutrition Goals 60 grams of protein per day 20-25 grams of fiber per day Huff - 1 tbsp dominican plain yogurt with 1 tbsp huff Limit [...] pickled beets 9. Limit the frappachinos from [employer], try a cold brew coffee in the hot weather Call Sleep medicine: [phone] documented as of this encounter Visit Diagnoses Not on filedocumented in this encounter Care Teams Sheet Metal Former Relationship Specialty Start Date End Date Jane [place] [address] [place] [address] PCP - General Geriatric Medicine 07/18/23 documented as of this encounter
--- OUTSIDE RECORDS SUMMARY | 2024-09-18 15:26 | XMS_ITS | Encounter Summary ---
[place] [address] Care Team Providers Care Hair Assistant Name Role Phone Jane Hector APRN Primary Care Provider [phone] Reason for Visit * Reason Onset Date Comments Other 11/22/2023 Encounter Details Date Type Department Care Team (Late st Contact Info) Description 11/22/2023 Telephone [place] [phone] Yamile Jesus MD [facility] [address] [facility] [address] Other Social History Tobacco Use Types Packs/Day [...] virtually only. I thought oinitially that [facility]. I [...] patient's right? When one goes to a disc pad plate filler, for example, one asks about similar cases how many etc, and what number the disc pad plate filler has had and won. Same principle here. [...] Patient states DH calls sometimes go to [facility]. Please leave a detailed message answering the [...] patient declined Message: y Call made to secretary specialist or nurse Y/N y Pager: Y/N n documented in this encounter Plan of Treatment Upcoming Encounters Date Type Department Care Team (Late st Contact Info) Description 10/04/2024 3:30 PM EST Office Visit Weight and Wellness at [facility] [place] [address] Yamile Jesus MD [facility] [address] [facility] [address] 12/12/2024 7:30 PM EST Procedure visit Sleep Center at [facility] [address] [place] [address] documented as of this encounter [...] and frozen broccoli) with sharp cheddar or dominican cheese (if you want) with piece of [...] in the hot weather Call Sleep medicine: [phone] documented as of this encounter Visit Diagnoses Not on filedocumented in this encounter Care Teams Hair Assistant Relationship Specialty Start Date End Date Jane Hector APRN [facility] [place] [address] [place] [address] PCP - General Geriatric Medicine 07/18/23 documented as of this encounter
--- OUTSIDE RECORDS SUMMARY | 2024-09-18 15:26 | XMS_ITS | Encounter Summary ---
Author Organization [facility] [place] [address] Care Team Providers Care Local Announcer Name Role Phone Jane Hector APRN Primary Care Provider [phone] Reason for Visit * Reason Onset Date Comments Medication Refill 12/06/2023 Encounter Details Date Type Department Care Team (Late st Contact Info) Description 12/06/2023 Refill [place] [phone] Yamile Jesus MD [facility] [place] [address] Social History Tobacco Use Types Packs/Day Years [...] EST Office Visit [place] [phone] Yamile Jesus MD [facility] [place] [address] 12/12/2024 7:30 PM EST Procedure visit Sleep Center at [facility] [address] [place] [address] documented as of this encounter Goals Goal [...] and frozen broccoli) with sharp cheddar or cymraes cheese (if you want) with piece of fruit (20-25 grams of protein) Option 2: plain yogurt, armenian has more protein with small amount of [...] Option 2: tuna salad with 2 tbsp armenian plain yogurt with 2 tbsp huff over spinach or lettuce If needed, Snack: All 10 grams of protein Option 1: hummus and raw vegetable and crackers (wheat thin) Option 2: cottage cheese (3/4 cup) with chives Option 3: grapes with nuts Other Nutrition Goals 60 grams of protein per day 20-25 grams of fiber per day Huff - 1 tbsp armenian plain yogurt with 1 tbsp huff Limit [...] in the hot weather Call Sleep medicine: [phone] documented as of this encounter Visit Diagnoses Not on filedocumented in this encounter Care Teams Local Announcer Relationship Specialty Start Date End Date Jane Hector [place] [address] PCP - General Geriatric Medicine 07/18/23 documented as of this encounter
--- OUTSIDE RECORDS SUMMARY | 2024-09-18 15:26 | XMS_ITS | Encounter Summary ---
Author Organization [facility] [place] [address] Care Team Providers Care Tsa Screener Name Role Phone Jane Hector APRN Primary Care Provider [phone] Reason for Visit * Reason Onset Date Comments Medication Refill 02/21/2024 Encounter Details Date Type Department Care Team (Late st Contact Info) Description 02/21/2024 Telephone [place] [address] Yamile Jesus MD [facility] [address] [facility] [place] [address] Medication Refill Social History Tobacco Use Types [...] 2 mg/dose (8 mg/3 mL) Pen Injector [[id number]] Dose: 2 mg Route: Subcutaneous Frequency: WEEKLY Dispense Quantity: 3 mL Refills: 3 Sig: Inject 2 mg subcutaneously once a week. How many days left: due for next injection on 02/28/24 Prescriber: Yamile Jesus Pharmacy Name & Location: [facility] Please check if patient is due for an appointment and schedule if so. Ask caller their first and last name and relationship to the patient: patient Phone: Best time to call back: any Ok to leave a message: y Ok to send [facility] message: y Patient states she is looking [...] EST Office Visit [place] [address] Yamile Jesus MD [facility] [place] [address] 12/12/2024 7:30 PM EST Procedure visit Sleep Center at [place] [address] [place] [address] documented as of this encounter Goals Goal Patient Goal Type Associated Problems Recent Progress Patient-Stated? Author Nutrition Goal Lifestyle No Gian Mendez RD Note: Nut[place] Goals: 07/22/24 TF [...] and frozen broccoli) with sharp cheddar or chadian cheese (if you want) with piece of fruit (20-25 grams of protein) Option 2: plain yogurt, french has more protein with small amount of [...] Option 2: tuna salad with 2 tbsp french plain yogurt with 2 tbsp huff over spinach or lettuce If needed, Snack: All 10 grams of protein Option 1: hummus and raw vegetable and crackers (wheat thin) Option 2: cottage cheese (3/4 cup) with chives Option 3: grapes with nuts Other Nutrition Goals 60 grams of protein per day 20-25 grams of fiber per day Huff - 1 tbsp french plain yogurt with 1 tbsp huff Limit [...] pickled beets 9. Limit the frappachinos from [facility], try a cold brew coffee in the hot weather Call Sleep medicine: [phone] documented as of this encounter Visit Diagnoses Not on filedocumented in this encounter Care Teams Tsa Screener Relationship Specialty Start Date End Date Jane Hector APRN [address] [place] [address] PCP - General Geriatric Medicine 07/18/23 documented as of this encounter
--- OUTSIDE RECORDS SUMMARY | 2024-09-18 15:26 | XMS_ITS | Encounter Summary ---
Author Organization [facility] [place] [address] Care Team Providers Care Harness Preparer Name Role Phone Jane Hector APRN Primary Care Provider [phone] Reason for Visit * Reason Onset Date Comments Medication Problem 12/28/2023 Encounter Details Date Type Department Care Team (Late st Contact Info) Description 12/28/2023 Telephone [place] [address] Yamile Jesus MD [facility] [address] [facility] [address] Medication Problem Social History Tobacco Use Types [...] refill. Prescription will need to go to [facility] in [facility]. Please see 12/18 patient message for reference. Ask caller their first and last name and relationship to the patient: Jes Bello Best time to call back: anytime Ok to leave a message: yes Ok to send [facility] message: yes Offered Appointment: NA Message: yes Call made to outboard technician or nurse Y/N no Pager: Y/N no documented in this encounter Plan of Treatment Upcoming Encounters Date Type Department Care Team (Late st Contact Info) Description 10/04/2024 3:30 PM EST Office [place] [address] Yamile Jesus MD [facility] [address] [facility] [address] 12/12/2024 7:30 PM EST Procedure visit Sleep Center at [facility] [address] [place] [address] documented as of this encounter Goals Goal [...] and frozen broccoli) with sharp cheddar or kazakh cheese (if you want) with piece of fruit (20-25 grams of protein) Option 2: plain yogurt, andorran has more protein with small amount of [...] Option 2: tuna salad with 2 tbsp andorran plain yogurt with 2 tbsp huff over spinach or lettuce If needed, Snack: All 10 grams of protein Option 1: hummus and raw vegetable and crackers (wheat thin) Option 2: cottage cheese (3/4 cup) with chives Option 3: grapes with nuts Other Nutrition Goals 60 grams of protein per day 20-25 grams of fiber per day Huff - 1 tbsp andorran plain yogurt with 1 tbsp huff Limit [...] in the hot weather Call Sleep medicine: [phone] documented as of this encounter Visit Diagnoses Not on filedocumented in this encounter Care Teams Harness Preparer Relationship Specialty Start Date End Date Jane Hector APRN [address] [place] [address] PCP - General Geriatric Medicine 07/18/23 documented as of this encounter
--- OUTSIDE RECORDS SUMMARY | 2024-09-18 15:26 | XMS_ITS | Encounter Summary ---
[place] [address] Care Team Providers Care Business Test Analyst Name Role Phone Jane Hector APRN Primary Care Provider [phone] Reason for Visit * Reason Onset Date Comments Medication Refill 12/28/2023 Encounter Details Date Type Department Care Team (Late st Contact Info) Description 12/28/2023 Refill [place] [address] Yamile Jesus MD [facility] [place] [address] Type 2 diabetes mellitus without complication, unspecified whether terminal carman insulin use Social History Tobacco Use Types [...] EST Office [place] [address] Yamile Jesus MD [facility] [place] [address] 12/12/2024 7:30 PM EST Procedure visit Sleep Center at [facility] [address] [place] [address] documented as of this encounter Goals Goal [...] and frozen broccoli) with sharp cheddar or sammarinese cheese (if you want) with piece of fruit (20-25 grams of protein) Option 2: plain yogurt, tuvaluan has more protein with small amount of [...] Option 2: tuna salad with 2 tbsp tuvaluan plain yogurt with 2 tbsp huff over spinach or lettuce If needed, Snack: All 10 grams of protein Option 1: hummus and raw vegetable and crackers (wheat thin) Option 2: cottage cheese (3/4 cup) with chives Option 3: grapes with nuts Other Nutrition Goals 60 grams of protein per day 20-25 grams of fiber per day Huff - 1 tbsp tuvaluan plain yogurt with 1 tbsp [place] Limit Naked juice to 1 coffee cup [...] pickled beets 9. Limit the frappachinos from [facility], try a cold brew coffee in the hot weather Call Sleep medicine: [phone] documented as of this encounter Visit Diagnoses Diagnosis Type 2 diabetes mellitus without complication, unspecified whether terminal carman insulin use documented in this encounter Care Teams Business Test Analyst Relationship Specialty Start Date End Date Jane Hector APRN [address] [place] [address] PCP - General Geriatric Medicine 07/18/23 documented as of this encounter
--- OUTSIDE RECORDS SUMMARY | 2024-09-18 15:26 | XMS_ITS | Encounter Summary ---
Author Organization [facility] Address [facility] [place] [address] Care Team Providers Care Silicator Name Role Phone Jane Hector APRN Primary Care Provider [phone] Reason for Visit * Reason Onset Date Comments Other 05/08/2024 Encounter Details Date Type Department Care Team (Late st Contact Info) Description 05/08/2024 Telephone [place] [address] Yamile Jesus MD [facility] [address] Other Social History Tobacco Use Types Packs/Day [...] have refills of your Mounjaro at the [facility] mail order pharmacy. If it is on automatic refills it will come to you, if not you can call janet and them to send it to you. She can call back with any questions. * Telephone Encounter - Jazz Danielel - 05/08/2024 3:56 PM EDT Message: Patient [...] Appointment: n Message: y Call made to paralegal legal secretary or nurse : n Pager: n documented in this encounter Plan of Treatment Upcoming Encounters Date Type Department Care Team (Late st Contact Info) Description 10/04/2024 3:30 PM EST Office Visit [place] [address] Yamile Jesus MD [facility] [address] 12/12/2024 7:30 PM EST Procedure visit Sleep Center at [place] [address] [place] [address] documented as of this encounter Goals Goal [...] and frozen broccoli) with sharp cheddar or anguillan cheese (if you want) with piece of fruit (20-25 grams of protein) Option 2: plain yogurt, monegasque has more protein with small amount of [...] Option 2: tuna salad with 2 tbsp monegasque plain yogurt with 2 tbsp huff over spinach or lettuce If needed, Snack: All 10 grams of protein Option 1: hummus and raw vegetable and crackers (wheat thin) Option 2: cottage cheese (3/4 cup) with chives Option 3: grapes with nuts Other Nutrition Goals 60 grams of protein per day 20-25 grams of fiber per day Huff - 1 tbsp monegasque plain yogurt with 1 tbsp huff Limit [...] in the hot weather Call Sleep medicine: [phone] documented as of this encounter Visit Diagnoses Not on filedocumented in this encounter Care Teams Silicator Relationship Specialty Start Date End Date Jane Hector APRN [address] [place] [place] [address] PCP - General Geriatric Medicine 07/18/23 documented as of this encounter
--- OUTSIDE RECORDS SUMMARY | 2024-09-18 15:26 | XMS_ITS | Encounter Summary ---
Author Organization [facility] [place] [address] Care Team Providers Care Supervisor Histology Name Role Phone Jane Hector APRN Primary Care Provider [phone] Encounter Details Date Type Department Care Team (Late st Contact Info) Description 11/29/2023 2:30 PM EST TH Visit (TeleHealth) [place] [address] [facility] [place] [address] Adult BMI 40.0-44.9 kg/sq m Social History [...] past visits. Please reach out with a [facility] message if you have any questions or [...] grams of protein) Option 2: plain yogurt, tristanian has more protein with small amount of [...] Option 2: tuna salad with 2 tbsp tristanian plain yogurt with 2 tbsp huff over spinach or lettuce If needed, Snack: All 10 grams of protein Option 1: hummus and raw vegetable and crackers (wheat thin) Option 2: cottage cheese (3/4 cup) with chives Option 3: grapes with nuts Other Nutrition Goals 60 grams of protein per day 20-25 grams of fiber per day Huff - 1 tbsp tristanian plain yogurt with 1 tbsp huff Limit [...] Mendez RD - 11/29/2023 2:30 PM SANDOVALumphilipy: [facility] RD Follow-up Visit Nutrition Intervention for Weight Management Follow-up RD visit with Jes Harjinder EugeniaCARO 1960 Location: [facility] care team: Yamile Jesus Weight Today: Wt [...] margo naked fruit juice [x] Milk - 8oz, [...] grams of protein) Option 2: plain yogurt, tristanian has more protein with small amount of [...] Option 2: tuna salad with 2 tbsp tristanian plain yogurt with 2 tbsp huff over spinach or lettuce If needed, Snack: All 10 grams of protein Option 1: hummus and raw vegetable and crackers (wheat thin) Option 2: cottage cheese (3/4 cup) with chives Option 3: grapes with nuts Other Nutrition Goals 60 grams of protein per day 20-25 grams of fiber per day Huff - 1 tbsp tristanian plain yogurt with 1 tbsp huff Limit [...] yogurt Handouts provided today: This encounter is [facility] Registered Dietitian visit number [] 1 [] 2 [x] 3 [] >=4 Monitor/Evaluate: Return in about 8 weeks (around 01/24/2024) for RD, clinic or zoom, any RD . Thank you, Gina Mendez PhD, RD, LD 30 minutes were spent [id number] with this patient today, whether in person or by zoom as specified above documented in this encounter Plan of Treatment Upcoming Encounters Date Type Department Care Team (Late st Contact Info) Description 10/04/2024 3:30 PM EST Office Visit [place] [address] Yamile Jesus MD [facility] [address] [facility] [place] [address] 12/12/2024 7:30 PM EST Procedure visit Sleep Center at [place] [address] [place] [address] documented as of this encounter Goals Goal [...] grams of protein) Option 2: plain yogurt, tristanian has more protein with small amount of [...] Option 2: tuna salad with 2 tbsp tristanian plain yogurt with 2 tbsp huff over spinach or lettuce If needed, Snack: All 10 grams of protein Option 1: hummus and raw vegetable and crackers (wheat thin) Option 2: cottage cheese (3/4 cup) with chives Option 3: grapes with nuts Other Nutrition Goals 60 grams of protein per day 20-25 grams of fiber per day Huff - 1 tbsp tristanian plain yogurt with 1 tbsp huff Limit [...] pickled beets 9. Limit the frappachinos from [employer], try a cold brew coffee in the hot weather Call Sleep medicine: [phone] documented as of this encounter Visit Diagnoses Diagnosis Adult BMI 40.0-44.9 kg/sq m Body Mass Index 40.0-44.9, adult documented in this encounter Care Teams Supervisor Histology Relationship Specialty Start Date End Date Jane Hector APRN [address] [place] [address] PCP - General Geriatric Medicine 07/18/23 documented as of this encounter
--- OUTSIDE RECORDS SUMMARY | 2024-09-18 15:26 | XMS_ITS | Encounter Summary ---
[place] [address] Care Team Providers Care Gumming Machine Operator Name Role Phone Tawny Jane DIXON Primary Care Provider [phone] Encounter Details Date Type Department Care Team (Late st Contact Info) Description 03/11/2024 Telephone [place] [address] Gina Gillespie, RN Social History Tobacco Use [...] RN - 03/11/2024 9:12 AM EDT Called [facility] and spoke with Bakari Forrester, part of [...] responded to seroquel in the past at [facility]. She is worried about gaining weight [...] bring this to the attention of her postal service clerk and they will see what they can do for Jes. notified * Telephone Encounter - Gina Gillespie RN - 03/11/2024 9:[address] Jesus wants to reach out to your psych doctor and I am not finding his name and number in her chart. I would like to get it for her. [facility] documented in this encounter Plan of Treatment Upcoming Encounters Date Type Department Care Team (Late st Contact Info) Description 10/04/2024 3:30 PM EST Office Visit [place] [address] Yamile Jesus MD [facility] [address] [facility] [address] 12/12/2024 7:30 PM EST Procedure visit Sleep Center at [facility] [address] [place] [address] documented as of this encounter Goals Goal [...] and frozen broccoli) with sharp cheddar or jordanian cheese (if you want) with piece of [...] pickled beets 9. Limit the frappachinos from [employer], try a cold brew coffee in the hot weather Call Sleep medicine: [phone] documented as of this encounter Visit Diagnoses Not on filedocumented in this encounter Care Teams Gumming Machine Operator Relationship Specialty Start Date End Date Jane Hector APRN [address] [place] [address] [place] [address] PCP - General Geriatric Medicine 07/18/23 documented as of this encounter
--- OUTSIDE RECORDS SUMMARY | 2024-09-18 15:26 | XMS_ITS | Encounter Summary ---
[place] [address] Care Team Providers Care Form Maker Plaster Name Role Phone Jane Hector APRN Primary Care Provider [phone] Reason for Visit * Reason Onset Date Comments Letter/Form 03/19/2024 Encounter Details Date Type Department Care Team (Late st Contact Info) Description 03/19/2024 Telephone [place] [address] Yamile Jesus MD [facility] [address] Letter/Form Social History Tobacco Use Types Packs/Day Years Used Date Smoking Tobacco: Never Smokeless Tobacco: Never Sex and Gender Information Value Date Recorded Sex Assigned at Female 08/24/2023 3:35 PM EDT Gender Identity Female 08/24/2023 3:29 PM EDT Sexual Orientation Straight 08/24/2023 3: 35 PM EDT documented as of this encounter Miscellaneous Notes * Telephone Encounter - Kenya Bui Paty - 03/19/2024 10:19 AM EDT Message: Patient is returning phone call from [employer] patient message sent this morning. She states [...] leave a message: yes Ok to send [facility] message: yes Offered Appointment: no Message: yes Call made to payroll secretary or nurse: yes Pager: no documented in this encounter Plan of Treatment Upcoming Encounters Date Type Department Care Team (Late st Contact Info) Description 10/04/2024 3:30 PM EST Office Visit [place] [address] Yamile Jesus MD [facility] [address] 12/12/2024 7:30 PM EST Procedure visit Sleep Center at [place] [address] [place] [address] documented as of this encounter Goals Goal [...] and frozen broccoli) with sharp cheddar or zimbabwean cheese (if you want) with piece of [...] pickled beets 9. Limit the frappachinos from [facility], try a cold brew coffee in the hot weather Call Sleep medicine: [phone] documented as of this encounter Visit Diagnoses Not on filedocumented in this encounter Care Teams Form Maker Plaster Relationship Specialty Start Date End Date Jnae Hector APRN [address] [place], [place] [address] [address] PCP - General Geriatric Medicine 07/18/23 documented as of this encounter
--- OUTSIDE RECORDS SUMMARY | 2024-09-18 15:26 | XMS_ITS | Encounter Summary ---
[place] [address] Care Team Providers Care Software Controls Engineer Name Role Phone Jane Hector APRN Primary Care Provider [phone] Reason for Visit * Reason Onset Date Comments Medication Refill 04/04/2024 Encounter Details Date Type Department Care Team (Late st Contact Info) Description 04/04/2024 Refill [place] [address] Yamile Jesus MD [facility] [place] [address] Type 2 diabetes mellitus without complication, unspecified whether termite helper insulin use Social History Tobacco Use Types [...] EST Office [place] [address] Yamile Jesus MD [facility] [place] [address] 12/12/2024 7:30 PM EST Procedure visit Sleep Center at [facility] [address] [place] [address] documented as of this encounter Goals Goal [...] grams of protein) Option 2: plain yogurt, togolese has more protein with small amount of [...] Option 2: tuna salad with 2 tbsp togolese plain yogurt with 2 tbsp huff over spinach or lettuce If needed, Snack: All 10 grams of protein Option 1: hummus and raw vegetable and crackers (wheat thin) Option 2: cottage cheese (3/4 cup) with chives Option 3: grapes with nuts Other Nutrition Goals 60 grams of protein per day 20-25 grams of fiber per day Huff - 1 tbsp togolese plain yogurt with 1 tbsp stout Limit Naked juice to 1 coffee cup [...] pickled beets 9. [facility], try a cold brew coffee in the hot weather Call Sleep medicine: [phone] documented as of this encounter Visit Diagnoses Diagnosis Type 2 diabetes mellitus without complication, unspecified whether termite helper insulin use documented in this encounter Care Teams Software Controls Engineer Relationship Specialty Start Date End Date Jane Hector APRN [address] [place] [address] PCP - General Geriatric Medicine 07/18/23 documented as of this encounter
--- OUTSIDE RECORDS SUMMARY | 2024-09-18 15:26 | XMS_ITS | Encounter Summary ---
Author Organization [facility] Address [place] [address] Care Team Providers Care Grain Distributor Name Role Phone StevenJane Chandler ZACK Primary Care Provider [phone] Reason for Visit * Consultation (Routine) - Closed Specialty Diagnoses / Procedures Referred By Darvin t Referred To Contact Sleep Center Diagnoses CIARA (obstructive sleep apnea) Insomnia, unspecified type Yamile Jesus MD [facility] [address] [facility] [address] [facility] [address] [place] [address] Referral ID Status Reason Start Date Expiration Date V isits Requested Visits Authorized [id number] Closed Consult, Test & Treat 10/06/2023 10/05/2024 1 1 Encounter Details Date Type Department Care Team (Late st Contact Info) Description 12/12/2023 4:30 PM EST TH Visit (TeleHealth) Sleep Center at [facility] [address] [place] [address] Katalina Chahal APRN [facility] [place] [address] Primary insomnia (Primary Dx); History [...] this encounter Progress Notes * Katalina Chahal, BRIM POUNCING MACHINE OPERATOR - 12/12/2023 4:30 PM EST Sleep Medicine [...] Patient-reported last 4 scores: 12/12/2023 2:30 PM [facility] 5 (Low Risk) Insomnia Severity Index [...] is to report back to me via [facility] if it helps or not after a [...] mouth at bedtime nightly Send me a [employer] message in 1 week if working or [...] EST Office [place] [address] Yamile Jesus MD [facility] [address] 12/12/2024 7:30 PM EST Procedure visit Sleep Center at [address] [address] documented as of this encounter Goals Goal [...] and frozen broccoli) with sharp cheddar or iranian cheese (if you want) with piece of fruit (20-25 grams of protein) Option 2: plain yogurt, maltese has more protein with small amount of [...] Option 2: tuna salad with 2 tbsp maltese plain yogurt with 2 tbsp huff over spinach or lettuce If needed, Snack: All 10 grams of protein Option 1: hummus and raw vegetable and crackers (wheat thin) Option 2: cottage cheese (3/4 cup) with chives Option 3: grapes with nuts Other Nutrition Goals 60 grams of protein per day 20-25 grams of fiber per day Huff - 1 tbsp maltese plain yogurt with 1 tbsp huff Limit [...] pickled beets 9. Limit the frappachinos from [employer], try a cold brew coffee in the hot weather Call Sleep medicine: [phone] documented as of this encounter Visit Diagnoses Diagnosis Primary insomnia- Primary Persistent disorder of initiating or maintaining sleep History of obstructive sleep apnea documented in this encounter Care Teams Grain Distributor Relationship Specialty Start Date End Date Jane Hector APRN [address] [place] [address] PCP - General Geriatric Medicine 07/18/23 documented as of this encounter
--- OUTSIDE RECORDS SUMMARY | 2024-09-18 15:26 | XMS_ITS | Encounter Summary ---
Author Organization [facility] [place] [facility] [place] [address] Care Team Providers Care Freight Elevator Operator Name Role Phone Jane Hector APRN Primary Care Provider [phone] Encounter Details Date Type Department Care Team [...] EST Office Visit [place] [address] Yamile Jesus MD [facility] [address] [facility] [address] 12/12/2024 7:30 PM EST Procedure visit Sleep Center at [place] [address] [place] [address] documented as of this encounter Goals Goal [...] grams of protein) Option 2: plain yogurt, dutch has more protein with small amount of [...] Option 2: tuna salad with 2 tbsp dutch plain yogurt with 2 tbsp huff over spinach or lettuce If needed, Snack: All 10 grams of protein Option 1: hummus and raw vegetable and crackers (wheat thin) Option 2: cottage cheese (3/4 cup) with chives Option 3: grapes with nuts Other Nutrition Goals 60 grams of protein per day 20-25 grams of fiber per day Huff - 1 tbsp dutch plain yogurt with 1 tbsp huff Limit [...] in the hot weather Call Sleep medicine: [phone] documented as of this encounter Visit Diagnoses Not on filedocumented in this encounter Care Teams Freight Elevator Operator Relationship Specialty Start Date End Date Jane Hector APRN [address] [place] [place] [address] PCP - General Geriatric Medicine 07/18/23 documented as of this encounter
--- OUTSIDE RECORDS SUMMARY | 2024-09-18 15:26 | XMS_ITS | Encounter Summary ---
Author Organization [facility] [place] [address] Care Team Providers Care Compressor Engineer Name Role Phone Jane Hector APRN Primary Care Provider [phone] Reason for Visit * Reason Onset Date Comments Other 03/25/2024 Encounter Details Date Type Department Care Team (Late st Contact Info) Description 03/25/2024 Telephone [place] [address] Yamile Jesus MD [facility] DR [facility] [place] [address] Other Social History Tobacco Use Types Packs/Day [...] n Message: y Call made to secretary board of commissioners or nurse : n Pager: n documented in this encounter Plan of Treatment Upcoming Encounters Date Type Department Care Team (Late st Contact Info) Description 10/04/2024 3:30 PM EST Office Visit [place] [address] Yamile Jesus MD [facility] DR [facility] [place] [address] 12/12/2024 7:30 PM EST Procedure visit Sleep Center at [facility] [address] [place] [address] documented as of this encounter Goals [...] grams of protein) Option 2: plain yogurt, samoan has more protein with small amount of [...] Option 2: tuna salad with 2 tbsp samoan plain yogurt with 2 tbsp huff over spinach or lettuce If needed, Snack: All 10 grams of protein Option 1: hummus and raw vegetable and crackers (wheat thin) Option 2: cottage cheese (3/4 cup) with chives Option 3: grapes with nuts Other Nutrition Goals 60 grams of protein per day 20-25 grams of fiber per day Huff - 1 tbsp samoan plain yogurt with 1 tbsp huff Limit [...] pickled beets 9. Limit the frappachinos from [employer], try a cold brew coffee in the hot weather Call Sleep medicine: [phone] documented as of this encounter Visit Diagnoses Not on filedocumented in this encounter Care Teams Compressor Engineer Relationship Specialty Start Date End Date Jane Hector APRN [address] [facility] [place] [address] PCP - General Geriatric Medicine 07/18/23 documented as of this encounter
--- OUTSIDE RECORDS SUMMARY | 2024-09-18 15:26 | XMS_ITS | Encounter Summary ---
[place] [address] Care Team Providers Care Aircraft Instrument Engineer Name Role Phone Jane Hector APRN Primary Care Provider [phone] Reason for Visit * Reason Onset Date Comments Triage 02/29/2024 Encounter Details Date Type Department Care Team (Late st Contact Info) Description 02/29/2024 Telephone Weight [place] [address] Nany Dobson Triage Social History [...] medication was discussed. Patient has appt [facility] on 03/08 but is not sleeping and is currently sick and feels her sleep issueneeds addressed sooner. Ask caller their first and last name and relationship to the patient: Jes Bello Best time to call back: any Ok to leave a message: y Ok to send my- message: no- current internet issues Offered Appointment: scheduled for 03/08 already Message: y Call made to front office secretary or nurse Y/N n Pager: Y/N n documented in this encounter Plan of Treatment Upcoming Encounters Date Type Department Care Team (Late st Contact Info) Description 10/04/2024 3:30 PM EST Office Visit Weight [place] [address] Yamile Jesus MD [facility] [address] [facility] [place] [address] 12/12/2024 7:30 PM EST Procedure visit Sleep Center at [facility] [address] [place] [address] documented as of this encounter Goals Goal [...] and frozen broccoli) with sharp cheddar or maldivian cheese (if you want) with piece of [...] in the hot weather Call Sleep medicine: [phone] documented as of this encounter Visit Diagnoses Not on filedocumented in this encounter Care Teams Aircraft Instrument Engineer Relationship Specialty Start Date End Date Jane Hector APRN [address] [place] [address] PCP - General Geriatric Medicine 07/18/23 documented as of this encounter
--- OUTSIDE RECORDS SUMMARY | 2024-09-18 15:26 | XMS_ITS | Encounter Summary ---
Author Organization [facility] [place] [address] Care Team Providers Care Special Delivery Clerk Name Role Phone Jane Hector APRN Primary Care Provider [phone] Encounter Details Date Type Department Care Team (Late st Contact Info) Description 05/15/2024 Telephone [place] [address] Yamile Jesus MD [facility] [address] [facility] MED[facility] [place], [place] [phone] Social History Tobacco Use Types Packs/Day Years [...] Gillespie RN - 05/23/2024 3:05 PM EDT [facility] message sent to pt * Telephone Encounter [...] leave a message: y Ok to send [facility] message: y Offered Appointment: MA/Nurse/Virgil contacted via: Message: Call: Pager: * Telephone [...] [facility] message: no Offered Appointment: Message: Call made to secretary of state or nurse Y/N Pager: Y/N documented in this encounter Plan of Treatment Upcoming Encounters Date Type Department Care Team (Late st Contact Info) Description 10/04/2024 3:30 PM EST Office Visit [place] [address] Yamile Jesus MD [facility] [address] [facility] [place] [address] 12/12/2024 7:30 PM EST Procedure visit Sleep Center at [facility] [address] [place] [address] documented as of this encounter Goals Goal [...] grams of protein) Option 2: plain yogurt, thai has more protein with small amount of [...] Option 2: tuna salad with 2 tbsp thai plain yogurt with 2 tbsp huff over spinach or lettuce If needed, Snack: All 10 grams of protein Option 1: hummus and raw vegetable and crackers (wheat thin) Option 2: cottage cheese (3/4 cup) with chives Option 3: grapes with nuts Other Nutrition Goals 60 grams of protein per day 20-25 grams of fiber per day Huff - 1 tbsp thai plain yogurt with 1 tbsp huff Limit [...] pickled beets 9. Limit the frappachinos from [facility], try a cold brew coffee in the hot weather Call Sleep medicine: [phone] documented as of this encounter Visit Diagnoses Not on filedocumented in this encounter Care Teams Special Delivery Clerk Relationship Specialty Start Date End Date Jane Hector APRN [address] [place] [address] PCP - General Geriatric Medicine 07/18/23 documented as of this encounter
--- OUTSIDE RECORDS SUMMARY | 2024-09-18 15:26 | XMS_ITS | Encounter Summary ---
Author Organization [facility] [place] [address] Care Team Providers Care Compliance Engineer Name Role Phone Jane Hector APRN Primary Care Provider [phone] Reason for Visit * Reason Onset Date Comments Other 03/14/2024 Encounter Details Date Type Department Care Team (Late st Contact Info) Description 03/14/2024 Telephone [place] [address] Yamile Jesus MD [facility] [address] [facility] [address] Other Social History Tobacco Use Types Packs/Day [...] Appointment: no Message: Y Call made to typing secretary or nurse Y/N n Pager: Y/N n documented in this encounter Plan of Treatment Upcoming Encounters Date Type Department Care Team (Late st Contact Info) Description 10/04/2024 3:30 PM EST Office Visit [place] [address] Yamile Jesus MD [facility] [address] [facility] [address] 12/12/2024 7:30 PM EST Procedure visit Sleep Center at [facility] [address] [place] [address] documented as of this encounter Goals Goal [...] and frozen broccoli) with sharp cheddar or egyptian cheese (if you want) with piece of fruit (20-25 grams of protein) Option 2: plain yogurt, bruneian has more protein with small amount of [...] Option 2: tuna salad with 2 tbsp bruneian plain yogurt with 2 tbsp huff over spinach or lettuce If needed, Snack: All 10 grams of protein Option 1: hummus and raw vegetable and crackers (wheat thin) Option 2: cottage cheese (3/4 cup) with chives Option 3: grapes with nuts Other Nutrition Goals 60 grams of protein per day 20-25 grams of fiber per day Huff - 1 tbsp bruneian plain yogurt with 1 tbsp huff Limit [...] in the hot weather Call Sleep medicine: [phone] documented as of this encounter Visit Diagnoses Not on filedocumented in this encounter Care Teams Compliance Engineer Relationship Specialty Start Date End Date Jane Hector APRN [facility] [place] [address] PCP - General Geriatric Medicine 07/18/23 documented as of this encounter
--- OUTSIDE RECORDS SUMMARY | 2024-09-18 15:26 | XMS_ITS | Encounter Summary ---
Author Organization [facility] [place] [address] Care Team Providers Care Retail Account Specialist Name Role Phone Jane Hector APRN Primary Care Provider [phone] Encounter Details Date Type Department Care Team [...] EST Office [place] [address] Yamile Jesus MD [facility] [address] [facility] [place] [address] 12/12/2024 7:30 PM EST Procedure visit Sleep Center at [place] [address] [place] [address] documented as of this encounter Goals Goal [...] in the hot weather Call Sleep medicine: [phone] documented as of this encounter Visit Diagnoses Not on filedocumented in this encounter Care Teams Retail Account Specialist Relationship Specialty Start Date End Date Jane Hector APRN [address] [place] [address] PCP - General Geriatric Medicine 07/18/23 documented as of this encounter
--- OUTSIDE RECORDS SUMMARY | 2024-09-18 15:26 | XMS_ITS | Encounter Summary ---
[place] [address] Care Team Providers Care Pipe Stem Aligner Name Role Phone Jane Hector APRN Primary Care Provider [phone] Encounter Details Date Type Department Care Team (Late st Contact Info) Description 01/19/2024 Telephone Weight [place] [address] Yamile Jesus MD [facility] [address] [facility]LL[facility] [address] Social History Tobacco [...] Gillespie RN - 01/23/2024 12:27 PM EDT [facility] message sent to pt * [...] y Ok to send [facility] message: y Offered Appointment: Message: y Call:n Pager:n documented in this encounter Plan of Treatment Upcoming Encounters Date Type Department Care Team (Late st Contact Info) Description 10/04/2024 3:30 PM EST Office Visit Weight [place] [address] Yamile Jesus MD [facility] [address] [facility]LLO [facility] [address] 12/12/2024 7:30 PM EST Procedure visit Sleep Center at [facility] [address] [place] [address] documented as of this encounter Goals Goal [...] grams of protein) Option 2: plain yogurt, puerto rican has more protein with small amount [...] Option 2: tuna salad with 2 tbsp puerto rican plain yogurt with 2 tbsp huff over spinach or lettuce If needed, Snack: All 10 grams of protein Option 1: hummus and raw vegetable and crackers (wheat thin) Option 2: cottage cheese (3/4 cup) with chives Option 3: grapes with nuts Other Nutrition Goals 60 grams of protein per day 20-25 grams of fiber per day Huff - 1 tbsp puerto rican plain yogurt with 1 tbsp huff [...] in the hot weather Call Sleep medicine: [phone] documented as of this encounter Visit Diagnoses Not on filedocumented in this encounter Care Teams Pipe Stem Aligner Relationship Specialty Start Date End Date Jane Hector APRN [address] [place] [address] PCP - General Geriatric Medicine 07/18/23 documented as of this encounter
--- OUTSIDE RECORDS SUMMARY | 2024-09-18 15:26 | XMS_ITS | Encounter Summary ---
[place] [address] Care Team Providers Care Chainstitch Hemmer Name Role Phone Jane Hector APRN Primary Care Provider [phone] Reason for Visit * Reason Onset Date Comments Medication Refill 04/29/2024 Encounter Details Date Type Department Care Team (Late st Contact Info) Description 04/29/2024 Refill [place] [address] Yamile Jesus MD [facility] [place] [address] Type 2 diabetes mellitus without complication, unspecified whether terminal system operator insulin use Social History Tobacco Use Types [...] EST Office Visit [place] [address] Yamile Jesus MD [facility] [place] [address] 12/12/2024 7:30 PM EST Procedure visit Sleep Center at [facility] [address] [place] [address] documented as of this encounter Goals Goal [...] tbsp mongolian plain yogurt with 1 tbsp gordon Limit Naked juice to 1 coffee cup [...] pickled beets 9. [facility], try a cold brew coffee in the hot weather Call Sleep medicine: [phone] documented as of this encounter Visit Diagnoses Diagnosis Type 2 diabetes mellitus without complication, unspecified whether terminal system operator insulin use documented in this encounter Care Teams Chainstitch Hemmer Relationship Specialty Start Date End Date Jane Hector APRN [address] [place] [address] PCP - General Geriatric Medicine 07/18/23 documented as of this encounter
--- OUTSIDE RECORDS SUMMARY | 2024-09-18 15:26 | XMS_ITS | Encounter Summary ---
[place] [address] Care Team Providers Care Baler Operator Name Role Phone Jane Hector APRN Primary Care Provider [phone] Reason for Visit * Reason Onset Date Comments Medication Refill 02/22/2024 Encounter Details Date Type Department Care Team (Late st Contact Info) Description 02/22/2024 Refill [place] [phone] Yamile Jesus MD [facility] [place] [address] Type 2 diabetes mellitus without complication, unspecified whether director workforce management insulin use Social History Tobacco Use Types [...] EST Office Visit [place] [phone] Yamile Jesus MD [facility] [place] [address] 12/12/2024 7:30 PM EST Procedure visit Sleep Center at [facility] [address] [place] [address] documented as of this encounter Goals Goal [...] north korean plain yogurt with 1 tbsp [place] Limit Naked juice to 1 coffee cup [...] pickled beets 9. [facility], try a cold brew coffee in the hot weather Call Sleep medicine: [phone] documented as of this encounter Visit Diagnoses Diagnosis Type 2 diabetes mellitus without complication, unspecified whether director workforce management insulin use documented in this encounter Care Teams Baler Operator Relationship Specialty Start Date End Date Jane Hector APRN [address] [place] [address] PCP - General Geriatric Medicine 07/18/23 documented as of this encounter
--- OUTSIDE RECORDS SUMMARY | 2024-09-18 15:26 | XMS_ITS | Encounter Summary ---
[place] [address] Care Team Providers Care Target Setter Name Role Phone Jane Hector APRN Primary Care Provider [phone] Encounter Details Date Type Department Care Team (Late st Contact Info) Description 01/24/2024 Telephone [place] [phone] Gina Gillespie RN Social History Tobacco Use [...] - 02/01/2024 9:35 AM EDT Sent pt [facility] message. * Telephone Encounter - Gillian Tubbs [...] Appointment: no Message: yes Call made to corporate secretary or nurse Y/N no Pager: Y/N [...] mg next week. I will send a [facility] message with this information as well. Ask [...] EST Office Visit [place] [address] Yamile Jesus MD [facility] [address] [place] [address] 12/12/2024 7:30 PM EST Procedure visit Sleep Center at [facility] [address] [place] [address] documented as of this encounter Goals Goal [...] grams of protein) Option 2: plain yogurt, northern irish has more protein with small amount [...] Option 2: tuna salad with 2 tbsp northern irish plain yogurt with 2 tbsp huff over spinach or lettuce If needed, Snack: All 10 grams of protein Option 1: hummus and raw vegetable and crackers (wheat thin) Option 2: cottage cheese (3/4 cup) with chives Option 3: grapes with nuts Other Nutrition Goals 60 grams of protein per day 20-25 grams of fiber per day Huff - 1 tbsp northern irish plain yogurt with 1 tbsp huff [...] pickled beets 9. Limit the frappachinos from [employer], try a cold brew coffee in the hot weather Call Sleep medicine: [phone] documented as of this encounter Visit Diagnoses Not on filedocumented in this encounter Care Teams Target Setter Relationship Specialty Start Date End Date Jane Hector APRN [address] [place] [address] PCP - General Geriatric Medicine 07/18/23 documented as of this encounter
--- OUTSIDE RECORDS SUMMARY | 2024-09-18 15:26 | XMS_ITS | Encounter Summary ---
Author Organization [facility] [place] [address] Care Team Providers Care Head Banquet Waitress Name Role Phone Jane Hector APRN Primary Care Provider [phone] Encounter Details Date Type Department Care Team (Late st Contact Info) Description 05/22/2024 3:00 PM EDT TH Visit (TeleHealth) [place] [phone] Gina Mendez RD [facility] [place] [address] Adult BMI 45.0-49.9 kg/sq m Social History [...] past visits. Please reach out with a [facility] message if you have any questions or [...] and frozen broccoli) with sharp cheddar or thai cheese (if you want) with piece of fruit (20-25 grams of protein) Option 2: plain yogurt, chinese has more protein with small amount of [...] Option 2: tuna salad with 2 tbsp chinese plain yogurt with 2 tbsp huff over spinach or lettuce If needed, Snack: All 10 grams of protein Option 1: hummus and raw vegetable and crackers (wheat thin) Option 2: cottage cheese (3/4 cup) with chives Option 3: grapes with nuts Other Nutrition Goals 60 grams of protein per day 20-25 grams of fiber per day Huff - 1 tbsp chinese plain yogurt with 1 tbsp huff Limit [...] pickled beets 9. Limit the frappachinos from [facility], try a cold brew coffee in the hot weather Call Sleep medicine: [phone] documented in this encounter Progress Notes * Gina Mendez RD - 05/22/2024 3:00 PM EDTSphilip: [facility] RD Follow-up Visit Nutrition Intervention for Weight Management Follow-up RD visit with Jes BelloCARO 1960 Location: [place] [facility] care team: Dr. Jesus Weight Today: Wt [...] and frozen broccoli) with sharp cheddar or thai cheese (if you want) with piece of fruit (20-25 grams of protein) Option 2: plain yogurt, chinese has more protein with small amount of [...] Option 2: tuna salad with 2 tbsp chinese plain yogurt with 2 tbsp huff over spinach or lettuce If needed, Snack: All 10 grams of protein Option 1: hummus and raw vegetable and crackers (wheat thin) Option 2: cottage cheese (3/4 cup) with chives Option 3: grapes with nuts Other Nutrition Goals 60 grams of protein per day 20-25 grams of fiber per day Huff - 1 tbsp chinese plain yogurt with 1 tbsp huff Limit [...] in the hot weather Call Sleep medicine: [phone] Handouts provided today: None This encounter is [facility] Registered Dietitian visit number [] 1 [] 2 [] 3 [x] >=4 Monitor/Evaluate: Return in about 6 weeks (around 07/03/2024) for CHRISTOPH, 30 min, Tawny galloway . Thank you, Gina Mendez PhD, RD, LD 30 minutes were spent [id number] with this patient today, whether in person or by zoom as specified above documented in this encounter Plan of Treatment Upcoming Encounters Date Type Department Care Team (Late st Contact Info) Description 10/04/2024 3:30 PM EST Office Visit [place] [address] Yamile Jesus MD [facility] [address] [place] [address] 12/12/2024 7:30 PM EST Procedure visit Sleep Center at [place] [address] [place] [address] documented as of this encounter Goals Goal [...] and frozen broccoli) with sharp cheddar or thai cheese (if you want) with piece of fruit (20-25 grams of protein) Option 2: plain yogurt, chinese has more protein with small amount of [...] Option 2: tuna salad with 2 tbsp chinese plain yogurt with 2 tbsp huff over spinach or lettuce If needed, Snack: All 10 grams of protein Option 1: hummus and raw vegetable and crackers (wheat thin) Option 2: cottage cheese (3/4 cup) with chives Option 3: grapes with nuts Other Nutrition Goals 60 grams of protein per day 20-25 grams of fiber per day Huff - 1 tbsp chinese plain yogurt with 1 tbsp huff Limit [...] pickled beets 9. Limit the frappachinos from [facility], try a cold brew coffee in the hot weather Call Sleep medicine: [phone] documented as of this encounter Visit Diagnoses Diagnosis Adult BMI 45.0-49.9 kg/sq m Body Mass Index 45.0-49.9, adult documented in this encounter Care Teams Head Banquet Waitress Relationship Specialty Start Date End Date Jane Hector APRN [address] [place] [address] PCP - General Geriatric Medicine 07/18/23 documented as of this encounter
--- OUTSIDE RECORDS SUMMARY | 2024-09-18 15:26 | XMS_ITS | Encounter Summary ---
[place] [address] Care Team Providers Care Ward Aide Name Role Phone Jane Hector APRN Primary Care Provider [phone] Reason for Visit * Reason Onset Date Comments Medication Refill 01/09/2024 Encounter Details Date Type Department Care Team (Late st Contact Info) Description 01/09/2024 Refill [place] [phone] Yamile Jesus MD [facility] [address] [place] [address] Type 2 diabetes mellitus without complication, unspecified whether cemetery vault installer insulin use Social History Tobacco Use Types [...] I did check and the [facility] [place] [facility] it in stock and it will [...] name and relationship to the patient: Self - Jes Bello Best time to call back: Any Ok to leave a message: Yes Ok to send - message: No Offered Appointment: N/A Message: Yes Call:No Pager:No documented in this encounter Plan of Treatment Upcoming Encounters Date Type Department Care Team (Late st Contact Info) Description 10/04/2024 3:30 PM EST Office Visit [place] [address] Yamile Jesus MD [facility] [address] [place] [address] 12/12/2024 7:30 PM EST Procedure visit Sleep Center at [facility] [address] [place] [address] documented as of this encounter Goals Goal [...] and frozen broccoli) with sharp cheddar or spanish cheese (if you want) with piece of [...] in the hot weather Call Sleep medicine: [phone] documented as of this encounter Visit Diagnoses Diagnosis Type 2 diabetes mellitus without complication, unspecified whether cemetery vault installer insulin use documented in this encounter Care Teams Ward Aide Relationship Specialty Start Date End Date Jane Hector APRN [address] [place] [address] PCP - General Geriatric Medicine 07/18/23 documented as of this encounter
--- OUTSIDE RECORDS SUMMARY | 2024-09-18 15:26 | XMS_ITS | Encounter Summary ---
[place] [address] Care Team Providers Care Roof Foreman Name Role Phone Jane Hector APRN Primary Care Provider [phone] Encounter Details Date Type Department Care Team (Late st Contact Info) Description 01/18/2024 Telephone [place] [phone] Nany Dobson Social History Tobacco Use Types [...] was last seen by sleep med at [facility] on 12/12/2023. Ask caller their first and last name and relationship to the patient: Jes Bello Best time to call back: any Ok to leave a message: y Ok to send [facility] message: y Offered Appointment: no Message: y Call made to clerical secretary or nurse Y/N n Pager: Y/N n documented in this encounter Plan of Treatment Upcoming Encounters Date Type Department Care Team (Late st Contact Info) Description 10/04/2024 3:30 PM EST Office Visit Weight and Wellness at [facility] [place] [address] Yamile Jesus MD [facility] [address] [facility] [address] 12/12/2024 7:30 PM EST Procedure visit Sleep Center at [facility] [address] [place] [address] documented as of this encounter Goals Goal [...] grams of protein) Option 2: plain yogurt, comoran has more protein with small amount of [...] Option 2: tuna salad with 2 tbsp comoran plain yogurt with 2 tbsp huff over spinach or lettuce If needed, Snack: All 10 grams of protein Option 1: hummus and raw vegetable and crackers (wheat thin) Option 2: cottage cheese (3/4 cup) with chives Option 3: grapes with nuts Other Nutrition Goals 60 grams of protein per day 20-25 grams of fiber per day Huff - 1 tbsp comoran plain yogurt with 1 tbsp huff Limit [...] in the hot weather Call Sleep medicine: [phone] documented as of this encounter Visit Diagnoses Not on filedocumented in this encounter Care Teams Roof Foreman Relationship Specialty Start Date End Date Jane Hector APRN [facility] [place] [place] [address] PCP - General Geriatric Medicine 07/18/23 documented as of this encounter
--- OUTSIDE RECORDS SUMMARY | 2024-09-18 15:26 | XMS_ITS | Encounter Summary ---
Author Organization [facility] [place] [address] Care Team Providers Care Hvac Mechanical Engineer Name Role Phone Jane Hector APRN Primary Care Provider [phone] Encounter Details Date Type Department Care Team (Late st Contact Info) Description 04/03/2024 Telephone [place] [address] Yamile Jesus MD [facility] [address] [place] [address] Social History Tobacco Use Types [...] from 10 mg to 12.5 mg. The [facility] mail order pharmacy has it in stock. There are still shortages. I do know that her preferred pharmacy is [facility] in [facility] but do not know if they have the Mounjaro 12.5 mg in stock.If she calls them and finds out that they have it in stock she can let us know. Otherwise it will go to the [facility] mail order pharmacy. She can call [...] leave a message: y Ok to send [facility] message: Offered Appointment: Message: y Call:n Pager:n documented in this encounter Plan of Treatment Upcoming Encounters Date Type Department Care Team (Late st Contact Info) Description 10/04/2024 3:30 PM EST Office [place] [address] Yamile Jesus MD [facility] [address] [place] [address] 12/12/2024 7:30 PM EST Procedure visit Sleep Center at [facility] [address] [place] [address] documented as of this encounter Goals Goal [...] and frozen broccoli) with sharp cheddar or angolan cheese (if you want) with piece of fruit (20-25 grams of protein) Option 2: plain yogurt, somali has more protein with small amount of [...] Option 2: tuna salad with 2 tbsp somali plain yogurt with 2 tbsp huff over spinach or lettuce If needed, Snack: All 10 grams of protein Option 1: hummus and raw vegetable and crackers (wheat thin) Option 2: cottage cheese (3/4 cup) with chives Option 3: grapes with nuts Other Nutrition Goals 60 grams of protein per day 20-25 grams of fiber per day Huff - 1 tbsp somali plain yogurt with 1 tbsp huff Limit [...] pickled beets 9. Limit the frappachinos from [facility], try a cold brew coffee in the hot weather Call Sleep medicine: [phone] documented as of this encounter Visit Diagnoses Not on filedocumented in this encounter Care Teams Hvac Mechanical Engineer Relationship Specialty Start Date End Date Jane Hector APRN [address] [place] [address] PCP - General Geriatric Medicine 07/18/23 documented as of this encounter
--- OUTSIDE RECORDS SUMMARY | 2024-09-18 15:26 | XMS_ITS | Encounter Summary ---
[place] [address] Care Team Providers Care First Aid Nurse Name Role Phone Jane Hector APRN Primary Care Provider [phone] Encounter Details Date Type Department Care Team (Late st Contact Info) Description 11/02/2023 Telephone [place] [phone] Gallito Barber RN Social History Tobacco Use [...] EST Office Visit Weight and Wellness at [facility] [place] [address] Yamile Jesus MD [facility] [address] [facility] [address] 12/12/2024 7:30 PM EST Procedure visit Sleep Center at [facility] [address] [place] [address] documented as of this encounter [...] grams of protein) Option 2: plain yogurt, pashto has more protein with small amount of [...] Option 2: tuna salad with 2 tbsp pashto plain yogurt with 2 tbsp huff over spinach or lettuce If needed, Snack: All 10 grams of protein Option 1: hummus and raw vegetable and crackers (wheat thin) Option 2: cottage cheese (3/4 cup) with chives Option 3: grapes with nuts Other Nutrition Goals 60 grams of protein per day 20-25 grams of fiber per day Huff - 1 tbsp pashto plain yogurt with 1 tbsp huff Limit [...] pickled beets 9. Limit the frappachinos from [facility], try a cold brew coffee in the hot weather Call Sleep medicine: [phone] documented as of this encounter Visit Diagnoses Not on filedocumented in this encounter Care Teams First Aid Nurse Relationship Specialty Start Date End Date Jane Hector APRN [address] [place] [address] PCP - General Geriatric Medicine 07/18/23 documented as of this encounter
--- OUTSIDE RECORDS SUMMARY | 2024-09-18 15:26 | XMS_ITS | Encounter Summary ---
[place] [address] Care Team Providers Care Jet Dyeing Machine Operator Name Role Phone Jane Hector APRN Primary Care Provider [phone] Reason for Visit * Reason Onset Date Comments Other 02/07/2024 Encounter Details Date Type Department Care Team (Late st Contact Info) Description 02/07/2024 Telephone [place] [address] Yamile Jesus MD [facility] [address] [facility] [address] Other Social History Tobacco Use Types Packs/Day [...] EST Office Visit [place] [address] Yamile Jesus MD [facility] [address] [place] [address] 12/12/2024 7:30 PM EST Procedure visit Sleep Center at [facility] [address] [address] documented as of this encounter [...] in the hot weather Call Sleep medicine: [phone] documented as of this encounter Visit Diagnoses Not on filedocumented in this encounter Care Teams Jet Dyeing Machine Operator Relationship Specialty Start Date End Date Jane Hector APRN [facility] [place] [address] PCP - General Geriatric Medicine 07/18/23 documented as of this encounter
--- OUTSIDE RECORDS SUMMARY | 2024-09-18 15:26 | XMS_ITS | Encounter Summary ---
Author Organization [facility] [address] Care Team Providers Care Posting Specialist Name Role Phone Jane Hector APRN Primary Care Provider [phone] Encounter Details Date Type Department Care Team (Late st Contact Info) Description 12/05/2023 Telephone [place] [phone] Yamile Jesus MD [facility] [address] [facility] [address] Social History Tobacco Use Types [...] has not Mounjaro and the [facility] in [facility] lower doses. I will [facility] [...] EST Office Visit [facility] at [facility] [place] [address] Yamile Jesus MD [facility] [address] [facility] [address] 12/12/2024 7:30 PM EST Procedure visit Sleep Center at [facility] [address] [place] [address] documented as of this encounter [...] and frozen broccoli) with sharp cheddar or micronesian cheese (if you want) with piece of fruit (20-25 grams of protein) Option 2: plain yogurt, taiwanese has more protein with small amount of [...] Option 2: tuna salad with 2 tbsp taiwanese plain yogurt with 2 tbsp huff over spinach or lettuce If needed, Snack: All 10 grams of protein Option 1: hummus and raw vegetable and crackers (wheat thin) Option 2: cottage cheese (3/4 cup) with chives Option 3: grapes with nuts Other Nutrition Goals 60 grams of protein per day 20-25 grams of fiber per day Huff - 1 tbsp taiwanese plain yogurt with 1 tbsp huff Limit [...] in the hot weather Call Sleep medicine: [phone] documented as of this encounter Visit Diagnoses Not on filedocumented in this encounter Care Teams Posting Specialist Relationship Specialty Start Date End Date Jane Hector APRN [facility] [place] [address] [place] [address] PCP - General Geriatric Medicine 07/18/23 documented as of this encounter
--- OUTSIDE RECORDS SUMMARY | 2024-09-18 15:26 | XMS_ITS | Encounter Summary ---
Author [facility] [place] [address] Care Team Providers Care Pump Servicer Supervisor Name Role Phone Jane Hector APRN Primary Care Provider [phone] Reason for Visit * Reason Onset Date Comments Other 01/18/2024 Encounter Details Date Type Department Care Team (Late st Contact Info) Description 01/18/2024 Telephone [place] [address] Yamile Jesus MD [facility] [address] [place] [address] Other Social History Tobacco Use Types Packs/Day [...] RN - 01/22/2024 3:33 PM EDT Sent [facility] message * Telephone Encounter - Keysha Hankins - 01/22/2024 12:34 PM EDT Jes calling in again to get an answer on how much mineral water she should be drinking. She wantsto make sure that she is not drinking to much if it is not good for her. Please let her know. A [facility] message can be sent to her of if not available on the phone leave a detailed message. * Telephone Encounter - Kylee Meyer - 01/18/2024 1:09 PM EDT Message: Ask caller their first and last name and relationship to the patient: Jes Bello Best time to call back: anytime Ok to leave a message: yes, a detailed message please Ok to send [place] message: yes Offered Appointment: no Message: Patient calling today. States she is known to drink a lot of [place] mineral water but hasheard it is not good to drink to much. She needs to know how much is too much. Call made to national secretary or nurse Y/N n Pager: Y/N n documented in this encounter Plan of Treatment Upcoming Encounters Date Type Department Care Team (Late st Contact Info) Description 10/04/2024 3:30 PM EST Office Visit [place] [address] Yamile Jesus MD [facility] [address] [place] [address] 12/12/2024 7:30 PM EST Procedure visit Sleep Center at [facility] [address] [address] documented as of this encounter Goals Goal [...] broccoli) with sharp cheddar or citizen of the [place]ican republic cheese (if you want) with piece of fruit (20-25 grams of protein) Option 2: plain yogurt, bhutanese has more protein with small amount of [...] Option 2: tuna salad with 2 tbsp bhutanese plain yogurt with 2 tbsp huff over spinach or lettuce If needed, Snack: All 10 grams of protein Option 1: hummus and raw vegetable and crackers (wheat thin) Option 2: cottage cheese (3/4 cup) with chives Option 3: grapes with nuts Other Nutrition Goals 60 grams of protein per day 20-25 grams of fiber per day Huff - 1 tbsp bhutanese plain yogurt with 1 tbsp huff Limit [...] pickled beets 9. Limit the frappachinos from [employer], try a cold brew coffee in the hot weather Call Sleep medicine: [phone] documented as of this encounter Visit Diagnoses Not on filedocumented in this encounter Care Teams Pump Servicer Supervisor Relationship Specialty Start Date End Date Jane Hector APRN [address] [place] [address] PCP - General Geriatric Medicine 07/18/23 documented as of this encounter
--- OUTSIDE RECORDS SUMMARY | 2024-09-18 15:26 | XMS_ITS | Encounter Summary ---
Author Organization [facility] [place] [address] Care Team Providers Care Director Of Promotions Name Role Phone Jane Hector APRN Primary Care Provider [phone] Encounter Details Date Type Department Care Team (Late st Contact Info) Description 11/01/2023 10:30 AM EST TH Visit (TeleHealth) [place] [phone] Gina Mendez RD [facility] [place] [address] Adult BMI 40.0-44.9 kg/sq m Social History [...] past visits. Please reach out with a iSuppli message if you have any questions or [...] and frozen broccoli) with sharp cheddar or palauan cheese (if you want) with piece of [...] Mendez RD - 11/01/2023 10:30 AM ESTSummary: [facility] RD follow-up Nutrition Intervention for Weight Management Follow-up RD visit with Jes BelloCARO 1960 Location: Telephone [facility] care team: Yamile Jesus Weight Today: 260 [...] a balanced diet. RD suggested making a fruit dryer appointment or discussed collagen concerns with PCP. [...] and frozen broccoli) with sharp cheddar or palauan cheese (if you want) with piece of [...] today: Fiber rich foods This encounter is [facility] Registered Dietitian visit number [] 1 [] 2 [x] 3 [] >=4 Monitor/Evaluate: Return in about 4 weeks (around 11/29/2023) for nilesh HAWTHORNE, 30 min, Selam Mendez, in the afternoon. Thank you, Gina Mendez PhD, RD, LD 30 minutes were spent [id number] with this patient today, whether in person or by zoom as specified above documented in this encounter Plan of Treatment Upcoming Encounters Date Type Department Care Team (Late st Contact Info) Description 10/04/2024 3:30 PM EST Office Visit [place] [address] Yamile Jesus MD [facility] [address] [place] [address] 12/12/2024 7:30 PM EST Procedure visit Sleep Center at [address] [place] [address] documented as of this encounter Goals Goal [...] and frozen broccoli) with sharp cheddar or palauan cheese (if you want) with piece of [...] pickled beets 9. Limit the frappachinos from [employer], try a cold brew coffee in the hot weather Call Sleep medicine: [phone] documented as of this encounter Visit Diagnoses Diagnosis Adult BMI 40.0-44.9 kg/sq m Body Mass Index 40.0-44.9, adult documented in this encounter Care Teams Director Of Promotions Relationship Specialty Start Date End Date Jane Hector APRN [address] [place] [address] PCP - General Geriatric Medicine 07/18/23 documented as of this encounter
--- OUTSIDE RECORDS SUMMARY | 2024-09-18 15:26 | XMS_ITS | Encounter Summary ---
[facility] [place] [place] [address] Care Team Providers Care Receiving Operator Name Role Phone Jane Hector APRN Primary Care Provider [phone] Reason for Visit * Reason Onset Date Comments Medication Refill 04/29/2024 Encounter Details Date Type Department Care Team (Late st Contact Info) Description 04/29/2024 Telephone Weight [place] [address] Yamile Jesus MD [facility] [address] [facility] [facility] [address] Medication Refill Social History Tobacco Use Types [...] EST Office Visit Weight [place] [address] Yamile Jesus MD [facility] [address] [facility]LL[facility] [address] 12/12/2024 7:30 PM EST Procedure visit Sleep Center at [place] [address] [place] [address] documented as of this encounter Goals Goal [...] grams of protein) Option 2: plain yogurt, stateless has more protein with small amount of [...] Option 2: tuna salad with 2 tbsp stateless plain yogurt with 2 tbsp huff over spinach or lettuce If needed, Snack: All 10 grams of protein Option 1: hummus and raw vegetable and crackers (wheat thin) Option 2: cottage cheese (3/4 cup) with chives Option 3: grapes with nuts Other Nutrition Goals 60 grams of protein per day 20-25 grams of fiber per day Huff - 1 tbsp stateless plain yogurt with 1 tbsp huff Limit [...] pickled beets 9. Limit the frappachinos from [employer], try a cold brew coffee in the hot weather Call Sleep medicine: [phone] documented as of this encounter Visit Diagnoses Not on filedocumented in this encounter Care Teams Receiving Operator Relationship Specialty Start Date End Date Jane Hector APRN [address] [place] [address] PCP - General Geriatric Medicine 07/18/23 documented as of this encounter
--- OUTSIDE RECORDS SUMMARY | 2024-09-18 15:26 | XMS_ITS | Encounter Summary ---
[place] [address] Care Team Providers Care Account Technician Name Role Phone Jane Hector APRN Primary Care Provider [phone] Reason for Visit * Reason Onset Date Comments Medication Refill 12/19/2023 Encounter Details Date Type Department Care Team (Late st Contact Info) Description 12/19/2023 Refill [place] [address] Yamile Jesus MD [facility] [place] [address] Type 2 diabetes mellitus without complication, unspecified whether salvage determiner insulin use Social History Tobacco Use Types [...] EST Office Visit [place] [address] Yamile Jesus MD [facility] [place] [address] 12/12/2024 7:30 PM EST Procedure visit Sleep Center at [facility] [address] [place] [address] documented as of this encounter Goals Goal [...] puerto rican plain yogurt with 1 tbsp runge Limit Naked juice to 1 coffee cup [...] pickled beets 9. [facility], try a cold brew coffee in the hot weather Call Sleep medicine: [phone] documented as of this encounter Visit Diagnoses Diagnosis Type 2 diabetes mellitus without complication, unspecified whether salvage determiner insulin use documented in this encounter Care Teams Account Technician Relationship Specialty Start Date End Date Jane Hector APRN [address] [place] [address] PCP - General Geriatric Medicine 07/18/23 documented as of this encounter
--- OUTSIDE RECORDS SUMMARY | 2024-09-18 15:26 | XMS_ITS | Encounter Summary ---
[place] [address] Care Team Providers Care Bulk Sealer Name Role Phone Jane Hector APRN Primary Care Provider [phone] Reason for Visit * Reason Onset Date Comments Other 02/06/2024 Patient Navigati on Encounter Details Date Type Department Care Team (Late st Contact Info) Description 02/06/2024 Tele[place] [address] Dunia Brasher Other (Patient Navigation/) Social History [...] EDT Called patient, who had returned this designer/writer's call and left a message. The patient, in answer to this designer/writer's question about the patient's experience in the [...] this with providers in other practices in [place]. Understands that there may be some short kind of video call that will be available in the future. This designer/writer agreed to inquire about this. It sounded [...] calling or sending a myD-H message. This designer/writer asked the patient for understanding and patience in her communication with Weight and Wellness staff and providers. PLAN: Encouraged the patient to get in touch with this designer/writer if she does have communication issuesin the future. Will also ask the Weight and Wellness care team to document any issues going forward, which this designer/writer or Dr. Blackwood can then address. The patient is welcome to contact this designer/writer anytime. Dunia Brasher MA Patient Navigator Section [...] Patient Navigator - Section of Gastroenterology & Hepatology/[place] [facility] * Telephone Encounter - [...] EST Office [place] [address] Yamile Jesus MD [facility] DR [facility] [facility] [address] 12/12/2024 7:30 PM EST Procedure visit Sleep Center at [place] [address] [place] [address] documented as of this encounter Goals Goal [...] in the hot weather Call Sleep medicine: [phone] documented as of this encounter Visit Diagnoses Not on filedocumented in this encounter Care Teams Bulk Sealer Relationship Specialty Start Date End Date Jane Hector APRN [address] [place] [address] PCP - General Geriatric Medicine 07/18/23 documented as of this encounter
--- OUTSIDE RECORDS SUMMARY | 2024-09-18 15:26 | XMS_ITS | Encounter Summary ---
[place] [address] Care Team Providers Care Wrapper And Preserver Name Role Phone Jnae Hector APRN Primary Care Provider [phone] Reason for Visit * Reason Onset Date Comments Appointment 11/06/2023 Encounter Details Date Type Department Care Team (Late st Contact Info) Description 11/06/2023 Telephone [place] [address] Gina Mendez, DAN[facility] [place] [address] Appointment Social History Tobacco Use Types Packs/Day [...] leave a message: yes Ok to send [facility] message: no Offered Appointment: yes, no openings found Message: Patient alling to scheduled her 1 month fuv. No openings found via telehealth. Patient prefers to have telephone office visit. Call made to medical assistant secretary or nurse Y/N n Pager: Y/N n documented in this encounter Plan of Treatment Upcoming Encounters Date Type Department Care Team (Late st Contact Info) Description 10/04/2024 3:30 PM EST Office Visit Weight and Wellness at [facility] [place] [address] Yamile Jesus MD [facility] DR [facility]LL[address] [facility] [address] 12/12/2024 7:30 PM EST Procedure visit Sleep Center at [facility] [address] [address] documented as of this encounter Goals Goal [...] pickled beets 9. Limit the frappachinos from [employer], try a cold brew coffee in the hot weather Call Sleep medicine: [phone] documented as of this encounter Visit Diagnoses Not on filedocumented in this encounter Care Teams Wrapper And Preserver Relationship Specialty Start Date End Date Jane Hector APRN [address] [place] [address] PCP - General Geriatric Medicine 07/18/23 documented as of this encounter
--- OUTSIDE RECORDS SUMMARY | 2024-09-18 15:26 | XMS_ITS | Encounter Summary ---
[place] [address] Care Team Providers Care Indian Trader Name Role Phone Jane Hector APRN Primary Care Provider [phone] Reason for Visit * Reason Onset Date Comments Medication Problem 12/07/2023 Encounter Details Date Type Department Care Team (Late st Contact Info) Description 12/07/2023 Telephone [place] [address] Yamile Jesus MD [facility] [address] [facility] [address] Medication Problem Social History Tobacco Use Types [...] and stated that she ended up calling [facility] and found out they got the [...] be sent in for the 12.5mg to [facility] in [place], [place] Did you contact your pharmacy?: Yes documented in this encounter Plan of Treatment Upcoming Encounters Date Type Department Care Team (Late st Contact Info) Description 10/04/2024 3:30 PM EST Office Visit [place] [address] Yamile Jesus MD [facility] [address] [facility] [address] 12/12/2024 7:30 PM EST Procedure visit Sleep Center at [facility] [address] [place] [address] documented as of this encounter Goals Goal [...] grams of protein) Option 2: plain yogurt, wolof has more protein with small amount of [...] Option 2: tuna salad with 2 tbsp wolof plain yogurt with 2 tbsp huff over spinach or lettuce If needed, Snack: All 10 grams of protein Option 1: hummus and raw vegetable and crackers (wheat thin) Option 2: cottage cheese (3/4 cup) with chives Option 3: grapes with nuts Other Nutrition Goals 60 grams of protein per day 20-25 grams of fiber per day Huff - 1 tbsp wolof plain yogurt with 1 tbsp huff Limit [...] pickled beets 9. Limit the frappachinos from [employer], try a cold brew coffee in the hot weather Call Sleep medicine: [phone] documented as of this encounter Visit Diagnoses Not on filedocumented in this encounter Care Teams Indian Trader Relationship Specialty Start Date End Date Jane Hector APRN [address] [place] [address] PCP - General Geriatric Medicine 07/18/23 documented as of this encounter
--- OUTSIDE RECORDS SUMMARY | 2024-09-18 15:26 | XMS_ITS | Encounter Summary ---
Author Organization [facility] [address] Care Team Providers Care Supervisor Functional Testing Name Role Phone Jane Hector APRN Primary Care Provider [phone] Reason for Visit * Reason Onset Date Comments Medication Problem 11/07/2023 Encounter Details Date Type Department Care Team (Late st Contact Info) Description 11/07/2023 Telephone [place] [address] Yamile Jesus MD [facility] [address] [facility] [address] Medication Problem Social History Tobacco Use Types [...] - 11/13/2023 11:47 AM EST Communication through [facility] * Telephone Encounter - Rosaura Lyles - 11/07/2023 1:59 PM EST Pharmacy or caller: Patient Medication: Mounjaro Message: Patient was calling to see if she could go back to the CodealikeunPneumaCarero 10ml, as she still has some remaining and would like to continue that since it was helping her loose weight, where her currentmedication does not. Please advise Did you contact your pharmacy?: No documented in this encounter Plan of Treatment Upcoming Encounters Date Type Department Care Team (Late st Contact Info) Description 10/04/2024 3:30 PM EST Office Visit [place] [address] Yamile Jesus MD [facility] [address] [facility] [address] 12/12/2024 7:30 PM EST Procedure visit Sleep Center at [facility] [address] [place] [address] documented as of this encounter Goals Goal [...] and frozen broccoli) with sharp cheddar or greek cheese (if you want) with piece of fruit (20-25 grams of protein) Option 2: plain yogurt, yi has more protein with small amount of [...] Option 2: tuna salad with 2 tbsp yi plain yogurt with 2 tbsp huff over spinach or lettuce If needed, Snack: All 10 grams of protein Option 1: hummus and raw vegetable and crackers (wheat thin) Option 2: cottage cheese (3/4 cup) with chives Option 3: grapes with nuts Other Nutrition Goals 60 grams of protein per day 20-25 grams of fiber per day Huff - 1 tbsp yi plain yogurt with 1 tbsp huff Limit [...] in the hot weather Call Sleep medicine: [phone] documented as of this encounter Visit Diagnoses Not on filedocumented in this encounter Care Teams Supervisor Functional Testing Relationship Specialty Start Date End Date Jane Hector APRN [address] [place] [address] PCP - General Geriatric Medicine 07/18/23 documented as of this encounter
--- OUTSIDE RECORDS SUMMARY | 2024-09-18 15:26 | XMS_ITS | Encounter Summary ---
[place] [address] Care Team Providers Care Check Totaler Name Role Phone Jane Hector APRN Primary Care Provider [phone] Reason for Visit * Reason Onset Date Comments Other 02/26/2024 Encounter Details Date Type Department Care Team (Late Contact Info) Description 02/26/2024 Telephone [place] [address] Nany Dobson Other Social History Tobacco Use [...] connect the [facility] portal at this time. She is not sure how long this issue will go on and asked about telephone callappts, I advised Jes if she needs a virtual appt we can discuss telephone call appts at that time. Patient confirmed May appt with Dr. Jesus in [facility] in person and will call the clinic if she needs anything before hand. Call Center- Ok to connect caller with Nany for any reason. documented in this encounter Plan of Treatment Upcoming Encounters Date Type Department Care Team (Late st Contact Info) Description 10/04/2024 3:30 PM EST Office Visit Weight and Wellness at [facility] [place] [address] Yamile Jesus MD [facility] [address] [facility] [address] 12/12/2024 7:30 PM EST Procedure visit Sleep Center at [facility] [address] [place] [address] documented as of this encounter Goals Goal [...] and frozen broccoli) with sharp cheddar or latvian cheese (if you want) with piece of fruit (20-25 grams of protein) Option 2: plain yogurt, cymro has more protein with small amount of [...] Option 2: tuna salad with 2 tbsp cymro plain yogurt with 2 tbsp huff over spinach or lettuce If needed, Snack: All 10 grams of protein Option 1: hummus and raw vegetable and crackers (wheat thin) Option 2: cottage cheese (3/4 cup) with chives Option 3: grapes with nuts Other Nutrition Goals 60 grams of protein per day 20-25 grams of fiber per day Huff - 1 tbsp cymro plain yogurt with 1 tbsp huff Limit [...] pickled beets 9. Limit the frappachinos from [employer], try a cold brew coffee in the hot weather Call Sleep medicine: [phone] documented as of this encounter Visit Diagnoses Not on filedocumented in this encounter Care Teams Check Totaler Relationship Specialty Start Date End Date Jane Hector APRN [address] [place] [address] PCP - General Geriatric Medicine 07/18/23 documented as of this encounter
--- OUTSIDE RECORDS SUMMARY | 2024-09-18 15:26 | XMS_ITS | Encounter Summary ---
[place] [address] Care Team Providers Care Order Clerk Name Role Phone Jane Hector APRN Primary Care Provider [phone] Reason for Visit * Reason Onset Date Comments Medication Refill 01/23/2024 Encounter Details Date Type Department Care Team (Late st Contact Info) Description 01/23/2024 Refill [place] [address] Yamile Jesus MD [facility] [place] [address] Type 2 diabetes mellitus without complication, unspecified whether lobsterman insulin use Social History Tobacco Use Types [...] EST Office Visit [place] [address] Yamile Jesus MD [facility] [place] [address] 12/12/2024 7:30 PM EST Procedure visit Sleep Center at [facility] [address] [place] [address] documented as of this encounter Goals Goal [...] and frozen broccoli) with sharp cheddar or togolese cheese (if you want) with piece of fruit (20-25 grams of protein) Option 2: plain yogurt, namibian has more protein with small amount of [...] Option 2: tuna salad with 2 tbsp namibian plain yogurt with 2 tbsp huff over spinach or lettuce If needed, Snack: All 10 grams of protein Option 1: hummus and raw vegetable and crackers (wheat thin) Option 2: cottage cheese (3/4 cup) with chives Option 3: grapes with nuts Other Nutrition Goals 60 grams of protein per day 20-25 grams of fiber per day Huff - 1 tbsp namibian plain yogurt with 1 tbsp indio Limit Naked juice to 1 coffee cup [...] pickled beets 9. Limit the frappachinos from [facility] [employer], try a cold brew coffee in the hot weather Call Sleep medicine: [phone] documented as of this encounter Visit Diagnoses Diagnosis Type 2 diabetes mellitus without complication, unspecified whether lobsterman insulin use documented in this encounter Care Teams Order Clerk Relationship Specialty Start Date End Date Jane Hector APRN [address] [place] [address] PCP - General Geriatric Medicine 07/18/23 documented as of this encounter
--- OUTSIDE RECORDS SUMMARY | 2024-09-18 15:26 | XMS_ITS | Encounter Summary ---
Author Organization [facility] [place] [address] Care Team Providers Care Junior Php Developer Name Role Phone Jane Hector APRN Primary Care Provider [phone] Encounter Details Date Type Department Care Team (Late st Contact Info) Description 01/10/2024 11:00 AM EDT Office [place] [address] Yamile Jesus MD [facility] [address] [facility] [address] Class 3 severe obesity with serious comorbidity and body mass index (BMI) of 45.0 to 49.9 in adult, unspecified obesity type (Primary Dx); Type 2 diabetes mellitus without complication, unspecified whether fpc insulin use; Gastroesophageal reflux disease, unspecified whether [...] from the original note were not included. [facility] Patient [...] anxiety/depression, thyroid disease. This is Visit #7 [facility] visit for this 63 y.o. patient. Initial weight 12/03/22: 284 lbs 02/03/2023, no new weight 04/14/2023, 251 lbs (- 33 lbs) 06/07/2023, 254 lbs (+ 3 lbs, - 30 lbs) 08/11/2023, 259 lbs (+ 4 lbs, - 26 lbs) 10/06/2023, 261 lbs (+ 2 lbs, - 24 lbs) 01/10/2024, 263 lbs (+ 2 lbs, - 23 lbs) [facility] Team: RD in the community HPI Cannot [...] found for: GLUCFASTING No results found for: [id number] No results found for: 25OHVITD No results [...] without complication, unspecified whether fpc insulin use Gastroesophageal reflux disease, unspecified whether esophagitis present Hypertension, unspecified type Mixed anxiety and depressive disorder Hypothyroidism, unspecified type CIARA (obstructive sleep apnea) Insomnia, unspecified type No orders of the defined types were placed in this encounter. Return in about 2 months (around 03/11/2024) for In person or Zoom, With me. 1 min chart review 25 min [id number] visit 5 min documentation time I spent [...] Office Visit Weight and Wellness at [facility] [place] [address] Yamile Jesus MD [facility] [address] [facility] [address] 12/12/2024 7:30 PM EST Procedure visit Sleep Center at [facility] [address] [place] [address] documented as of this encounter [...] in the hot weather Call Sleep medicine: [phone] documented as of this encounter Visit Diagnoses Diagnosis Class 3 severe obesity with serious comorbidity and body mass index (BMI) of 45.0 to 49.9 in adult, unspecified obesity type- Primary Type 2 diabetes mellitus without complication, unspecified whether exterminator insulin use Gastroesophageal reflux disease, unspecified whether esophagitis present Hypertension, unspecified type Mixed anxiety and depressive disorder Dysthymic disorder Hypothyroidism, unspecified type CIARA (obstructive sleep apnea) Obstructive sleep apnea (adult) (pediatric) Insomnia, unspecified type documented in this encounter Care Teams Junior Php Developer Relationship Specialty Start Date End Date Jane Hector APRN [address] [place] [address] PCP - General Geriatric Medicine 07/18/23 documented as of this encounter
--- OUTSIDE RECORDS SUMMARY | 2024-09-18 15:26 | XMS_ITS | Encounter Summary ---
Author Organization [facility] [place] [address] Care Team Providers Care Blacksmith Farm Name Role Phone Jane Hector APRN Primary Care Provider [phone] Encounter Details Date Type Department Care Team [...] EST Office Visit [place] [address] Yamile Jesus MD [facility] [address] [facility]LL[address] [place] [address] 12/12/2024 7:30 PM EST Procedure visit Sleep Center at [place] [address] [place] [address] documented as of this encounter Goals Goal [...] and frozen broccoli) with sharp cheddar or congolese cheese (if you want) with piece of fruit (20-25 grams of protein) Option 2: plain yogurt, qatari has more protein with small amount of [...] Option 2: tuna salad with 2 tbsp qatari plain yogurt with 2 tbsp huff over spinach or lettuce If needed, Snack: All 10 grams of protein Option 1: hummus and raw vegetable and crackers (wheat thin) Option 2: cottage cheese (3/4 cup) with chives Option 3: grapes with nuts Other Nutrition Goals 60 grams of protein per day 20-25 grams of fiber per day Huff - 1 tbsp qatari plain yogurt with 1 tbsp huff Limit [...] in the hot weather Call Sleep medicine: [phone] documented as of this encounter Visit Diagnoses Not on filedocumented in this encounter Care Teams Blacksmith Farm Relationship Specialty Start Date End Date Jane Hector APRN [address] [place] [address] PCP - General Geriatric Medicine 07/18/23 documented as of this encounter
--- OUTSIDE RECORDS SUMMARY | 2024-09-18 15:26 | XMS_ITS | Encounter Summary ---
Author Organization [facility] [place] [address] Care Team Providers Care Veterinary Microbiologist Name Role Phone Jane Hector APRN Primary Care Provider [phone] Reason for Visit * Reason Onset Date Comments Other 04/18/2024 Encounter Details Date Type Department Care Team (Late st Contact Info) Description 04/18/2024 Telephone [place] [address] Yamile Jesus MD [facility] [address] [facility] [facility] [address] Other Social History Tobacco Use Types Packs/Day [...] EST Office Visit Weight and Wellness at [facility] [place] [address] Yamile Jesus MD [facility] [address] 12/12/2024 7:30 PM EST Procedure visit Sleep Center at [facility] [address] [place] [address] documented as of this encounter [...] and frozen broccoli) with sharp cheddar or welsh cheese (if you want) with piece of [...] pickled beets 9. Limit the frappachinos from [employer], try a cold brew coffee in the hot weather Call Sleep medicine: [phone] documented as of this encounter Visit Diagnoses Not on filedocumented in this encounter Care Teams Veterinary Microbiologist Relationship Specialty Start Date End Date Jane Hector APRN [address] [place] [address] PCP - General Geriatric Medicine 07/18/23 documented as of this encounter
--- OUTSIDE RECORDS SUMMARY | 2024-09-18 15:26 | XMS_ITS | Encounter Summary ---
Author Organization [facility] [place] [address] Care Team Providers Care Ui Software Developer Name Role Phone Jane Hector APRN Primary Care Provider [phone] Encounter Details Date Type Department Care Team [...] EST Office Visit [place] [address] Yamile Jesus MD [facility] [address] BELL[address] [facility] [address] 12/12/2024 7:30 PM EST Procedure visit Sleep Center at [place] [address] [place] [address] documented as of this encounter Goals Goal [...] and frozen broccoli) with sharp cheddar or chilean cheese (if you want) with piece of fruit (20-25 grams of protein) Option 2: plain yogurt, nigerien has more protein with small amount of [...] Option 2: tuna salad with 2 tbsp nigerien plain yogurt with 2 tbsp huff over spinach or lettuce If needed, Snack: All 10 grams of protein Option 1: hummus and raw vegetable and crackers (wheat thin) Option 2: cottage cheese (3/4 cup) with chives Option 3: grapes with nuts Other Nutrition Goals 60 grams of protein per day 20-25 grams of fiber per day Huff - 1 tbsp nigerien plain yogurt with 1 tbsp huff Limit [...] in the hot weather Call Sleep medicine: [phone] documented as of this encounter Visit Diagnoses Not on filedocumented in this encounter Care Teams Ui Software Developer Relationship Specialty Start Date End Date Jane Hector APRN [address] [place] [address] PCP - General Geriatric Medicine 07/18/23 documented as of this encounter
--- OUTSIDE RECORDS SUMMARY | 2024-09-18 15:26 | XMS_ITS | Encounter Summary ---
Author Organization [facility] [place] [address] Care Team Providers Care Consumer Education Specialist Name Role Phone Jane Hector APRN Primary Care Provider [phone] Encounter Details Date Type Department Care Team (Late st Contact Info) Description 03/08/2024 2:30 PM EDT Office Visit [place] [address] Yamile Jesus MD [facility] [address] BELLO [facility] [address] Class 3 severe obesity with serious comorbidity and body mass index (BMI) of 45.0 to 49.9 in adult, unspecified obesity type (Primary Dx); Type 2 diabetes mellitus without complication, unspecified whether prison insulin use; Gastroesophageal reflux disease, unspecified whether [...] from the original note were not included. [facility] Patient Name: [...] anxiety/depression, thyroid disease. This is Visit #8 [facility] visit for this 63 y.o. patient. Initial weight 12/03/22: 284 lbs 02/03/2023, no new weight 04/14/2023, 251 lbs (- 33 lbs) 06/07/2023, 254 lbs (+ 3 lbs, - 30 lbs) 08/11/2023, 259 lbs (+ 4 lbs, - 26 lbs) 10/06/2023, 261 lbs (+ 2 lbs, - 24 lbs) 01/10/2024, 263 lbs (+ 2 lbs, - 23 lbs) 03/08/2024, no new weight [facility] Team: RD in the community HPI [...] reconnect with another provider. 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 Routine f/u with me. No data [...] found for: GLUCFASTING No results found for: [id number] No results found for: 25OHVITD No results [...] 2 diabetes mellitus without complication, unspecified whether intermediate designer insulin use - tirzepatide (Mounjaro) 10 mg/0.5 [...] and medication management. min chart review min [id number] visit Min documentation time I spent time [...] EST Office Visit [place] [address] Yamile Jesus MD [facility] DR [facility]LL[address] [facility] [address] 12/12/2024 7:30 PM EST Procedure visit Sleep Center at [facility] [address] [place] [address] documented as of this encounter Goals Goal [...] and frozen broccoli) with sharp cheddar or nigerian cheese (if you want) with piece of [...] pickled beets 9. Limit the frappachinos from [employer], try a cold brew coffee in the hot weather Call Sleep medicine: [phone] documented as of this encounter Visit Diagnoses Diagnosis Class 3 severe obesity with serious comorbidity and body mass index (BMI) of 45.0 to 49.9 in adult, unspecified obesity type- Primary Type 2 diabetes mellitus without complication, unspecified whether intermediate designer insulin use Gastroesophageal reflux disease, unspecified whether esophagitis present Hypertension, unspecified type Mixed anxiety and depressive disorder Dysthymic disorder Hypothyroidism, unspecified type CIARA (obstructive sleep apnea) Obstructive sleep apnea (adult) (pediatric) Insomnia, unspecified type documented in this encounter Care Teams Consumer Education Specialist Relationship Specialty Start Date End Date aJne Hector APRN [address] [facility] [place] [address] PCP - General Geriatric Medicine 07/18/23 documented as of this encounter
--- OUTSIDE RECORDS SUMMARY | 2024-09-18 15:26 | XMS_ITS | Encounter Summary ---
Author Organization [facility] [place] [address] Care Team Providers Care Donor Floor Technician Name Role Phone Jane Hector APRN Primary Care Provider [phone] Encounter Details Date Type Department Care Team (Late st Contact Info) Description 04/10/2024 3:00 PM EDT TH Visit (TeleHealth) [place] [phone] Gina Mendez RD [facility] [place] [address] Adult BMI 45.0-49.9 kg/sq m Social History [...] past visits. Please reach out with a Braingaze message if you have any questions or [...] Mendez RD - 04/10/2024 3:00 PM EDTSummary: [facility] RD follow-up Nutrition Intervention for Weight Management Follow-up RD visit with Jes BelloCARO 1960 Location: [facility] care team: Dr. Jesus Weight Today: None [...] Handouts provided today: None This encounter is [facility] Registered Dietitian visit number [] 1 [] 2 [] 3 [x] >=4 Monitor/Evaluate: Return in about 6 weeks (around 05/22/2024) for CHRISTOPH, 30 min, nilesh Chávez. Thank you, Gina Mendez PhD, RD, LD 30 minutes were spent [id number]-[id number] with this patient today, whether in person or by zoom as specified above documented in this encounter Plan of Treatment Upcoming Encounters Date Type Department Care Team (Late st Contact Info) Description 10/04/2024 3:30 PM EST Office Visit [place] [address] Yamile Jesus MD [facility] DR BELLO [facility] [address] 12/12/2024 7:30 PM EST Procedure visit Sleep Center at [place] [address] [place] [address] documented as of this encounter Goals Goal [...] pickled beets 9. Limit the frappachinos from [employer], try a cold brew coffee in the hot weather Call Sleep medicine: [phone] documented as of this encounter Visit Diagnoses Diagnosis Adult BMI 45.0-49.9 kg/sq m Body Mass Index 45.0-49.9, adult documented in this encounter Care Teams Donor Floor Technician Relationship Specialty Start Date End Date Jane Hector APRN [address] [place] [address] PCP - General Geriatric Medicine 07/18/23 documented as of this encounter
--- OUTSIDE RECORDS SUMMARY | 2024-09-18 15:27 | XMS_ITS | Encounter Summary ---
[place] [address] Care Team Providers Care Coffee Urn Attendant Name Role Phone Yissel Guerra APRN Primary Care Provider [phone] Encounter Details Date Type Department Care Team (Late st Contact Info) Description 06/29/2023 12:00 PM EDT Notes Only [place] [address] Social History Tobacco Use Types Packs/Day Years [...] EST Office Visit [place] [address] [facility] [address] BELL[address] [facility] [address] 12/12/2024 7:30 PM EST Procedure visit Sleep Center at [facility] [address] [place] [address] documented as of this encounter Visit Diagnoses Not on filedocumented in this encounter Care Teams Coffee Urn Attendant Relationship Specialty Start Date End Date Yissel Guerra APRN PCP - General Family Medicine 07/04/22 07/17/23 documented as of this encounter
--- OUTSIDE RECORDS SUMMARY | 2024-09-18 15:27 | XMS_ITS | Encounter Summary ---
[place] [address] Care Team Providers Care Professor Of Biostatistics Name Role Phone Yissel Guerra APRN Primary Care Provider [phone] Encounter Details Date Type Department Care Team (Late st Contact Info) Description 06/01/2023 Telephone [place] [address] Gina Gillespie RN Social History Tobacco Use [...] EST Office [place] [address] Yamile Jesus MD [facility] [address] BELLO [facility] [address] 12/12/2024 7:30 PM EST Procedure visit Sleep Center at [place] [address] [place] [address] documented as of this encounter Visit Diagnoses Not on filedocumented in this encounter Care Teams Professor Of Biostatistics Relationship Specialty Start Date End Date Yissel Guerra APRN PCP - General Family Medicine 07/04/22 07/17/23 documented as of this encounter
--- OUTSIDE RECORDS SUMMARY | 2024-09-18 15:27 | XMS_ITS | Encounter Summary ---
[place] [address] Care Team Providers Care Moss Bleacher Name Role Phone Yissel Guerra APRN Primary Care Provider [phone] Encounter Details Date Type Department Care Team (Late st Contact Info) Description 03/14/2023 Refill Weight [place] [address] Yamile Jesus MD [facility] [address] BELLO [facility]ILY MEDICINE [place], [place] [phone] Social History Tobacco Use Types Packs/Day Years [...] EST Office Visit [place] [address] Yamile Jesus MD [facility] [address] BELL[address] [place] [address] 12/12/2024 7:30 PM EST Procedure visit Sleep Center at [facility] [address] [place] [address] documented as of this encounter Visit Diagnoses Not on filedocumented in this encounter Care Teams Moss Bleacher Relationship Specialty Start Date End Date Yissel Guerra APRN PCP - General Family Medicine 07/04/22 07/17/23 documented as of this encounter
--- OUTSIDE RECORDS SUMMARY | 2024-09-18 15:27 | XMS_ITS | Encounter Summary ---
[place] [address] Care Team Providers Care Cook Night Name Role Phone Yissel Guerra APRN Primary Care Provider [phone] Reason for Visit * Reason Comments Medication Refill Encounter Details Date Type Department Care Team (Late st Contact Info) Description 03/24/2023 Refill Weight [place] [address] Yamile Jesus MD [facility] [place] [address] Social History Tobacco Use Types Packs/Day Years [...] EST Office Visit Weight [place] [address] Yamile Jesus MD [facility] [place] [place] [address] 12/12/2024 7:30 PM EST Procedure visit Sleep Center at [facility] [address] [place] [address] documented as of this encounter Visit Diagnoses Not on filedocumented in this encounter Care Teams Cook Night Relationship Specialty Start Date End Date Yissel Guerra APRN PCP - General Family Medicine 07/04/22 07/17/23 documented as of this encounter
--- OUTSIDE RECORDS SUMMARY | 2024-09-18 15:27 | XMS_ITS | Encounter Summary ---
[place] [address] Care Team Providers Care Senior Litigation Paralegal Name Role Phone Yissel Guerra APRN Primary Care Provider [phone] Reason for Visit * Reason Onset Date Comments Medication Refill 05/12/2023 Encounter Details Date Type Department Care Team (Late st Contact Info) Description 05/12/2023 Refill [place] [address] Yamile Jesus MD [facility] [place] [address] Type 2 diabetes mellitus without complication, unspecified whether exterminator helper insulin use Social History Tobacco Use [...] EST Office Visit [place] [address] Yamile Jesus MD [facility] [place] [address] 12/12/2024 7:30 PM EST Procedure visit Sleep Center at [facility] [address] [place] [address] documented as of this encounter Visit Diagnoses Diagnosis Type 2 diabetes mellitus without complication, unspecified whether chcf insulin use documented in this encounter Care Teams Senior Litigation Paralegal Relationship Specialty Start Date End Date Yissel Guerra APRN PCP - General Family Medicine 07/04/22 07/17/23 documented as of this encounter
--- OUTSIDE RECORDS SUMMARY | 2024-09-18 15:27 | XMS_ITS | Encounter Summary ---
Author Organization [facility] Address [facility] [place] [address] Care Team Providers Care Front Window Cashier Name Role Phone Jane Hector APRN Primary Care Provider [phone] Reason for Referral * Consultation (Routine) - Closed Specialty Diagnoses / Procedures Referred By Dravin segovia Referred To Contact Sleep Center Diagnoses CIARA (obstructive sleep apnea) Insomnia, unspecified type Yamile Jesus MD [facility] [place] [address] [facility] [address] [place] [address] Referral ID Status Reason Start Date Expiration Date V isits Requested Visits Authorized [id number] Closed Consult, Test & Treat 10/06/2023 10/05/2024 1 1 Encounter Details Date Type Department Care Team (Late st Contact Info) Description 10/06/2023 11:30 AM EST Office Visit Weight [place] [address] Yamile Jesus MD [facility] [place] [address] Type 2 diabetes mellitus without complication, unspecified whether detention insulin use; Class 3 severe obesity with [...] from the original note were not included. [facility] Patient Name: [...] thyroid disease. . This is Visit #6 [facility] visit for this 63 y.o. patient. Initial weight 12/03/22: 284 lbs 02/03/2023, no new weight 04/14/2023, 251 lbs (- 33 lbs) 06/07/2023, 254 lbs (+ 3 lbs, - 30 lbs) 08/11/2023, 259 lbs (+ 4 lbs, - 26 lbs) 10/06/2023, 261 lbs (+ 2 lbs, - 24 lbs) [facility] Team: RD in the community HPI [...] a while but then nothing is effective detention. Sleep - d/w CIARA 20+ years ago. [...] - message sent to sleep med at [facility] tosee if they can expedite a consult for persistent and severe insomnia Self-monitoring: Food log Groups of interest: []HLP-ES [] HLP-MS [] HLP-LS []Culinary []ACT []Monthly Lifestyle Classes Discussion 10/09/23:Current pathways reviewed. Extensive conversation had with Jes regarding my credentials today. I assured her that I am in fact Board Certified in Surgery and Obesity Medicine and licensed in [place], [place] and [place]. 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 I [...] state I could consult with our new chief clerk shelter regarding her care, she is on maximal [...] found for: GLUCFASTING No results found for: [id number] No results found for: 25OHVITD No results [...] unspecified whether continuous churn buttermaker insulin use Class 3 severe obesity with [...] . 1 min chart review 60 min mjsd-wc-ywou visit 5 min documentation time I spent [...] EST Office Visit Weight [place] [address] Yamile Jesus MD [facility] [address] [facility] [address] 12/12/2024 7:30 PM EST Procedure visit Sleep Center at [facility] [address] [place] [address] Scheduled Referrals Name Type Priority Associated Diagnoses [...] grams of protein) Option 2: plain yogurt, polish has more protein with small amount of [...] Option 2: tuna salad with 2 tbsp polish plain yogurt with 2 tbsp huff over spinach or lettuce If needed, Snack: All 10 grams of protein Option 1: hummus and raw vegetable and crackers (wheat thin) Option 2: cottage cheese (3/4 cup) with chives Option 3: grapes with nuts Other Nutrition Goals 60 grams of protein per day 20-25 grams of fiber per day Huff - 1 tbsp polish plain yogurt with 1 tbsp huff Limit [...] pickled beets 9. Limit the frappachinos from [facility], try a cold brew coffee in the hot weather Call Sleep medicine: [phone] documented as of this encounter Visit Diagnoses Diagnosis Type 2 diabetes mellitus without complication, unspecified whether detention insulin use Class 3 severe obesity with serious comorbidity and body mass index (BMI) of 40.0 to 44.9 in adult, unspecified obesity type Gastroesophageal reflux disease, unspecified whether esophagitis present Hypertension, unspecified type Mixed anxiety and depressive disorder Dysthymic disorder Hypothyroidism, unspecified type CIARA (obstructive sleep apnea) Obstructive sleep apnea (adult) (pediatric) Insomnia, unspecified type documented in this encounter Care Teams Front Window Cashier Relationship Specialty Start Date End Date Jane Hector APRN [address] [place] [address] PCP - General Geriatric Medicine 07/18/23 documented as of this encounter
--- OUTSIDE RECORDS SUMMARY | 2024-09-18 15:27 | XMS_ITS | Encounter Summary ---
Author [place] [address] Care Team Providers Care It Network Engineer Name Role Phone Yissel Guerra APRN Primary Care Provider [phone] Encounter Details Date Type Department Care Team (Late st Contact Info) Description 02/03/2023 3:30 PM EDT TH Visit (TeleHealth) [place] [address] Yamile Jesus MD [facility] [address] [facility] [facility] [address] Type 2 diabetes mellitus without complication, unspecified whether usp insulin use; Hypertension, unspecified type; Class 3 severe obesity with serious comorbidity and body mass index (BMI) of 50.0 to 59.9 in adult, unspecified obesity type; Mixed anxiety and depressive disorder; Hypothyroidism, unspecified type; CAIRA (obstructive sleep apnea) Social History Tobacco Use [...] this video visit, pt is located at: [facility] Patient Name: [...] thyroid disease. . This is Visit #2 [facility] visit for this 62 y.o. patient. Initial weight 12/03/22: 284 lbs 02/03/2023, no new weight [facility] Team: RD in the community HPI [...] found for: GLUCFASTING No results found for: [id number] No results found for: 25OHVITD No results [...] 2 diabetes mellitus without complication, unspecified whether long term acute care registered nurse insulin use - tirzepatide 2.5 mg/0.5 mL [...] guardado. 1 min chart review 30 min gcjr-qg-gczk visit 5 min documentation time I spent [...] EST Office Visit [place] [address] Yamile Jesus MD [facility] [address] [facility] [facility] [address] 12/12/2024 7:30 PM EST Procedure visit Sleep Center at [facility] [address] [place] [address] documented as of this encounter Visit Diagnoses Diagnosis Type 2 diabetes mellitus without complication, unspecified whether usp insulin use Hypertension, unspecified type Class 3 severe obesity with serious comorbidity and body mass index (BMI) of 50.0 to 59.9 in adult, unspecified obesity type Mixed anxiety and depressive disorder Dysthymic disorder Hypothyroidism, unspecified type CIARA (obstructive sleep apnea) Obstructive sleep apnea (adult) (pediatric) documented in this encounter Care Teams It Network Engineer Relationship Specialty Start Date End Date Yissel Guerra APRN PCP - General Family Medicine 07/04/22 07/17/23 documented as of this encounter
--- OUTSIDE RECORDS SUMMARY | 2024-09-18 15:27 | XMS_ITS | Encounter Summary ---
[place] [address] Care Team Providers Care Coater Helper Name Role Phone Yissel Guerra APRN Primary Care Provider Encounter Details Date Type Department Care Team (Late st Contact Info) Description 04/06/2023 12:00 PM EDT TH Visit (TeleHealth) [place] [address] Social History Tobacco Use Types Packs/Day Years [...] EST Office Visit [place] [address] Yamile Jesus MD [facility] [address] [facility] [place] [address] 12/12/2024 7:30 PM EST Procedure visit Sleep Center at [facility] [address] [place] [address] documented as of this encounter Goals Goal [...] grams of protein) Option 2: plain yogurt, cuban has more protein with small amount of [...] Option 2: tuna salad with 2 tbsp cuban plain yogurt with 2 tbsp huff over spinach or lettuce If needed, Snack: All 10 grams of protein Option 1: hummus and raw vegetable and crackers (wheat thin) Option 2: cottage cheese (3/4 cup) with chives Option 3: grapes with nuts Other Nutrition Goals 60 grams of protein per day 20-25 grams of fiber per day Huff - 1 tbsp cuban plain yogurt with 1 tbsp huff Limit [...] pickled beets 9. Limit the frappachinos from [facility], try a cold brew coffee in the hot weather Call Sleep medicine: [phone] documented as of this encounter Visit Diagnoses Not on filedocumented in this encounter Care Teams Coater Helper Relationship Specialty Start Date End Date Yissel Guerra APRN PCP - General Family Medicine 07/04/22 07/17/23 documented as of this encounter
--- OUTSIDE RECORDS SUMMARY | 2024-09-18 15:27 | XMS_ITS | Encounter Summary ---
[place] [address] Care Team Providers Care Cloth Washer Name Role Phone Yissel Guerra APRN Primary Care Provider [phone] Encounter Details Date Type Department Care Team (Late st Contact Info) Description 03/14/2023 Telephone [place] [address] Yamile Jesus MD [facility] [address] [facility]LLO [place] [address] Social History Tobacco Use Types Packs/Day Years [...] EST Office Visit [place] [address] Yamile Jesus MD [facility] DR BELLO [place] [address] 12/12/2024 7:30 PM EST Procedure visit Sleep Center at [facility] [address] [place] [address] documented as of this encounter Visit Diagnoses Not on filedocumented in this encounter Care Teams Cloth Washer Relationship Specialty Start Date End Date Yissel Guerra APRN PCP - General Family Medicine 07/04/22 07/17/23 documented as of this encounter
--- OUTSIDE RECORDS SUMMARY | 2024-09-18 15:27 | XMS_ITS | Encounter Summary ---
Author Organization [facility] [place] [address] Care Team Providers Care Learning Center Coordinator Name Role Phone Yissel Guerra APRN Primary Care Provider Encounter Details Date Type Department Care Team (Late st Contact Info) Description 05/29/2023 5:30 PM EDT Notes Only [place] [address] Social History Tobacco Use Types [...] - 05/29/2023 5:30 PM EDT Patient attended [facility] documented in this encounter Plan of Treatment Upcoming Encounters Date Type Department Care Team (Late st Contact Info) Description 10/04/2024 3:30 PM EST Office Visit [place] [address] Yamile Jesus MD [facility] [address] [facility]LLO [facility] MEDICINE [place], [place] [address] 12/12/2024 7:30 PM EST Procedure visit Sleep Center at [facility] [address] [place] [address] documented as of this encounter Visit Diagnoses Not on filedocumented in this encounter Care Teams Learning Center Coordinator Relationship Specialty Start Date End Date Yissel Guerra APRN PCP - General Family Medicine 07/04/22 07/17/23 documented as of this encounter
--- OUTSIDE RECORDS SUMMARY | 2024-09-18 15:27 | XMS_ITS | Encounter Summary ---
[place] [address] Care Team Providers Care College Physics Instructor Name Role Phone Yissel Guerra APRN Primary Care Provider [phone] Reason for Visit * Reason Onset Date Comments Medication Problem 05/11/2023 Encounter Details Date Type Department Care Team (Late st Contact Info) Description 05/11/2023 Telephone [place] [address] Nany Dobson Medication Problem Social History Tobacco [...] EST Office Visit [place] [address] Yamile Jesus MD [facility] [address] [facility]LL[place] [address] 12/12/2024 7:30 PM EST Procedure visit Sleep Center at [facility] [address] [place] [address] documented as of this encounter Visit Diagnoses Not on filedocumented in this encounter Care Teams College Physics Instructor Relationship Specialty Start Date End Date Yissel Guerra APRN PCP - General Family Medicine 07/04/22 07/17/23 documented as of this encounter
--- OUTSIDE RECORDS SUMMARY | 2024-09-18 15:27 | XMS_ITS | Encounter Summary ---
[place] [address] Care Team Providers Care Car Shunter Name Role Phone Yissel Guerra APRN Primary Care Provider [phone] Reason for Visit * Reason Onset Date Comments Medication Refill 05/01/2023 Encounter Details Date Type Department Care Team (Late st Contact Info) Description 05/01/2023 Telephone [place] [address] Gina Gillespie, air quality engineer Refill Social History Tobacco Use Types Packs/Day [...] EST Office Visit [place] [address] Yamile Jesus MD [facility] [address] [facility]LL[facility] [place] [address] 12/12/2024 7:30 PM EST Procedure visit Sleep Center at [facility] [address] [place] [address] documented as of this encounter Visit Diagnoses Not on filedocumented in this encounter Care Teams Car Shunter Relationship Specialty Start Date End Date Yissel Guerra APRN PCP - General Family Medicine 07/04/22 07/17/23 documented as of this encounter
--- OUTSIDE RECORDS SUMMARY | 2024-09-18 15:27 | XMS_ITS | Encounter Summary ---
[place] [address] Care Team Providers Care Career Development Director Name Role Phone Yissel Guerra APRN Primary Care Provider [phone] Reason for Visit * Reason Onset Date Comments Medication Problem 03/03/2023 Encounter Details Date Type Department Care Team (Late st Contact Info) Description 03/03/2023 Telephone [place] [address] Nany Dobson Medication Problem Social History Tobacco [...] leave a message: y Ok to send [facility] message: y Offered Appointment: n documented in this encounter Plan of Treatment Upcoming Encounters Date Type Department Care Team (Late st Contact Info) Description 10/04/2024 3:30 PM EST Office Visit [place] [address] Yamile Jesus MD [facility] [address] [facility]LL[place] [address] 12/12/2024 7:30 PM EST Procedure visit Sleep Center at [facility] [address] [place] [address] documented as of this encounter Visit Diagnoses Not on filedocumented in this encounter Care Teams Career Development Director Relationship Specialty Start Date End Date Yissel Guerra APRN PCP - General Family Medicine 07/04/22 07/17/23 documented as of this encounter
--- OUTSIDE RECORDS SUMMARY | 2024-09-18 15:27 | XMS_ITS | Encounter Summary ---
[place] [address] Care Team Providers Care Tank Terminal Gauger Name Role Phone Yissel Guerra APRN Primary Care Provider [phone] Encounter Details Date Type Department Care Team (Late st Contact Info) Description 05/22/2023 5:30 PM EDT Notes [place] [address] Social History Tobacco Use Types Packs/Day Years [...] EST Office Visit [place] [address] Yamile Jesus MD [facility] DR BELLO [place] [address] 12/12/2024 7:30 PM EST Procedure visit Sleep Center at [facility] [address] [place] [address] documented as of this encounter Visit Diagnoses Not on filedocumented in this encounter Care Teams Tank Terminal Gauger Relationship Specialty Start Date End Date Yissel Guerra APRN PCP - General Family Medicine 07/04/22 07/17/23 documented as of this encounter
--- OUTSIDE RECORDS SUMMARY | 2024-09-18 15:27 | XMS_ITS | Encounter Summary ---
[place] [address] Care Team Providers Care Lining Stamper Name Role Phone Charlie Yissel Newman APRN Primary Care Provider [phone] Reason for Referral * Consultation (Routine) - Closed Specialty Diagnoses / Procedures Referred By Darvin segovia Referred To Contact Gastroenterology Diagnoses Diarrhea, unspecified type motility- diarrhea Alee Henderson, DENTAL SURGERY DOCTOR [address] [place] [address] [facility] [address] [place] [id number] Referral ID Status Reason Start Date Expiration Date V isits Requested Visits Authorized [id number] Closed Consult, Test & Treat PCP Updated and/or Approved 04/21/2023 04/20/2024 6 6 Encounter Details Date Type Department Care Team (Latest Contact Info) Description 04/21/2023 Transcribe Orders eDH Incoming Referrals [phone] Alee Henderson, DENTAL SURGERY DOCTOR [address] [facility] [place], [place] [address] Diarrhea, unspecified type Social History Tobacco Use [...] EST Office Visit [place] [address] Yamile eJsus MD [facility] [address] [facility]LL[place] [address] 12/12/2024 7:30 PM EST Procedure visit Sleep Center at [facility] [address] [place] [address] Scheduled Referrals Name Type Priority Associated Diagnoses Order Schedule Referral to Gastroenterology Outpatient Referral Routine Diarrhea, unspecified type Ordered: 04/21/2023 documented as of this encounter Visit Diagnoses Diagnosis Diarrhea, unspecified type documented in this encounter Care Teams Lining Stamper Relationship Specialty Start Date End Date Yissel Guerra APRN PCP - General Family Medicine 07/04/22 07/17/23 documented as of this encounter
--- OUTSIDE RECORDS SUMMARY | 2024-09-18 15:27 | XMS_ITS | Encounter Summary ---
Author Organization [facility] [place] [address] Care Team Providers Care Hot Stone Setter Name Role Phone Jane Hector APRN Primary Care Provider [phone] Encounter Details Date Type Department Care Team [...] EST Office Visit [place] [address] Yamile Jesus MD [facility] DR BELLO [place] [address] 12/12/2024 7:30 PM EST Procedure visit Sleep Center at [place] [address] [place] [address] documented as of this encounter Goals Goal Patient Goal Type Associated Problems Recent Progress Patient-Stated? Author Nutrition Goal Lifestyle No Gina Mednez, DANIAL Note: [employer] Goals: 07/22/24 TF 1.Try [...] in the hot weather Call Sleep medicine: [phone] documented as of this encounter Visit Diagnoses Not on filedocumented in this encounter Care Teams Hot Stone Setter Relationship Specialty Start Date End Date Jane Hector APRN [address] [place] [address] PCP - General Geriatric Medicine 07/18/23 documented as of this encounter
--- OUTSIDE RECORDS SUMMARY | 2024-09-18 15:27 | XMS_ITS | Encounter Summary ---
[place] [address] Care Team Providers Care Animal Shelter Manager Name Role Phone Yissel Guerra APRN Primary Care Provider [phone] Reason for Visit * Reason Onset Date Comments Medication Reaction 05/16/2023 Encounter Details Date Type Department Care Team (Late st Contact Info) Description 05/16/2023 Telephone [place] [address] Gina Gillespie rouge sifter and miller Reaction Social History Tobacco Use Types Packs/Day [...] that we have gotten the labs from [facility]. She has requested that they get faxed. documented in this encounter Plan of Treatment Upcoming Encounters Date Type Department Care Team (Late st Contact Info) Description 10/04/2024 3:30 PM EST Office Visit [place] [address] Yamile Jesus MD [facility] [address] BELLO [facility] [address] 12/12/2024 7:30 PM EST Procedure visit Sleep Center at [place] [address] [place] [address] documented as of this encounter Visit Diagnoses Not on filedocumented in this encounter Care Teams Animal Shelter Manager Relationship Specialty Start Date End Date Yissel Guerra APRN PCP - General Family Medicine 07/04/22 07/17/23 documented as of this encounter
--- OUTSIDE RECORDS SUMMARY | 2024-09-18 15:27 | XMS_ITS | Encounter Summary ---
[place] [address] Care Team Providers Care Rail Doweling Machine Operator Name Role Phone Yissel Guerra APRN Primary Care Provider [phone] Reason for Visit * Reason Onset Date Comments Medication Refill 03/16/2023 Encounter Details Date Type Department Care Team (Late st Contact Info) Description 03/16/2023 Telephone [place] [address] Yamile Jesus MD [facility] DR BELLO [facility] [address] Medication Refill Social History Tobacco Use Types [...] and left message. It was sent to [facility] as requested. documented in this encounter Plan of Treatment Upcoming Encounters Date Type Department Care Team (Late st Contact Info) Description 10/04/2024 3:30 PM EST Office Visit [place] [address] Yamile Jesus MD [facility] [address] BELLO [place] [address] 12/12/2024 7:30 PM EST Procedure visit Sleep Center at [facility] [address] [place] [address] documented as of this encounter Visit Diagnoses Not on filedocumented in this encounter Care Teams Rail Doweling Machine Operator Relationship Specialty Start Date End Date Yissel Guerra APRN PCP - General Family Medicine 07/04/22 07/17/23 documented as of this encounter
--- OUTSIDE RECORDS SUMMARY | 2024-09-18 15:27 | XMS_ITS | Encounter Summary ---
[place] [address] Care Team Providers Care Oil Distributor Name Role Phone Jane Hector APRN Primary Care Provider [phone] Encounter Details Date Type Department Care Team (Late st Contact Info) Description 07/12/2023 5:30 PM EDT Notes Only [place] [address] Social History Tobacco Use Types Packs/Day Years [...] EST Office Visit [place] [address] Yamile Jesus MD [facility] [address] [facility]LL[facility] [place] [address] 12/12/2024 7:30 PM EST Procedure visit Sleep Center at [facility] [address] [place] [address] documented as of this encounter Visit Diagnoses Not on filedocumented in this encounter Care Teams Oil Distributor Relationship Specialty Start Date End Date Jane Hector APRN [address] [place] [address] PCP - General Geriatric Medicine 07/18/23 documented as of this encounter
--- OUTSIDE RECORDS SUMMARY | 2024-09-18 15:27 | XMS_ITS | Encounter Summary ---
[place] [address] Care Team Providers Care Plant Taxonomy Teacher Name Role Phone Jane Hector APRN Primary Care Provider [phone] Encounter Details Date Type Department Care Team (Late st Contact Info) Description 09/20/2023 Telephone [place] [address] Gina Gillespie RN Social History Tobacco Use [...] EST Office Visit [place] [address] Yamile Jesus MD [facility] [address] [facility]LLO [facility] [address] 12/12/2024 7:30 PM EST Procedure visit Sleep Center at [facility] [address] [place] [address] documented as of this encounter Goals Goal [...] in the hot weather Call Sleep medicine: [phone] documented as of this encounter Visit Diagnoses Not on filedocumented in this encounter Care Teams Plant Taxonomy Teacher Relationship Specialty Start Date End Date Jane Hector APRN [address] [place] [address] PCP - General Geriatric Medicine 07/18/23 documented as of this encounter
--- OUTSIDE RECORDS SUMMARY | 2024-09-18 15:27 | XMS_ITS | Encounter Summary ---
[place] [address] Care Team Providers Care Obstetrician/Gynecologist Name Role Phone Jane Hector APRN Primary Care Provider [phone] Reason for Visit * Reason Onset Date Comments Medication Problem 08/15/2023 Encounter Details Date Type Department Care Team (Late st Contact Info) Description 08/15/2023 Telephone [place] [address] Nany Dobson Medication Problem Social [...] on . I can call or send [facility] message if there is a change in the plan. * Telephone Encounter - Nany Dobson - 08/15/2023 9:14 AM EDT Pharmacy or caller: [facility]ello Medication: tirzepatide Message: The [facility] does not have the 15mg. However [...] EST Office Visit [place] [address] Yamile Jesus MD [facility] [address] [facility]LL[place] [address] 12/12/2024 7:30 PM EST Procedure visit Sleep Center at [facility] [address] [place] [address] documented as of this encounter Goals Goal [...] pickled beets 9. Limit the frappachinos from [employer], try a cold brew coffee in the hot weather Call Sleep medicine: [phone] documented as of this encounter Visit Diagnoses Not on filedocumented in this encounter Care Teams Obstetrician/Gynecologist Relationship Specialty Start Date End Date Jane Hector APRN [address] [place] [address] PCP - General Geriatric Medicine 07/18/23 documented as of this encounter
--- OUTSIDE RECORDS SUMMARY | 2024-09-18 15:27 | XMS_ITS | Encounter Summary ---
Author Organization [facility] [place] [address] Care Team Providers Care Job Site Superintendent Name Role Phone Jane Hector APRN Primary Care Provider [phone] Encounter Details Date Type Department Care Team (Late st Contact Info) Description 09/21/2023 Telephone Weight [place] [address] Yamile Jesus MD [facility] [address] [facility] [place] [address] Social History Tobacco Use Types Packs/Day Years [...] be doing it or not. Elisa Choi MARITIME OFFICER, Phone#. [phone] Pt also asked about her blood sugar [...] AM EST Message: Jes returning call from Gian LYNN. Jes states she has also sent [...] send my- message: no Offered Appointment: no MA/Nurse/Manager [employer] contacted via: Message: yes Call: no Pager: no documented in this encounter Plan of Treatment Upcoming Encounters Date Type Department Care Team (Late st Contact Info) Description 10/04/2024 3:30 PM EST Office Visit Weight and Wellness at [facility] [place] [address] Yamile Jesus MD [facility] [address] [facility] [place] [address] 12/12/2024 7:30 PM EST Procedure visit Sleep Center at [facility] [address] [place] [address] documented as of this encounter Goals Goal [...] grams of protein) Option 2: plain yogurt, finnish has more protein with small amount of [...] Option 2: tuna salad with 2 tbsp finnish plain yogurt with 2 tbsp huff over spinach or lettuce If needed, Snack: All 10 grams of protein Option 1: hummus and raw vegetable and crackers (wheat thin) Option 2: cottage cheese (3/4 cup) with chives Option 3: grapes with nuts Other Nutrition Goals 60 grams of protein per day 20-25 grams of fiber per day Huff - 1 tbsp finnish plain yogurt with 1 tbsp huff Limit [...] in the hot weather Call Sleep medicine: [phone] documented as of this encounter Visit Diagnoses Not on filedocumented in this encounter Care Teams Job Site Superintendent Relationship Specialty Start Date End Date Jane Hector APRN [facility] [place] [place] [address] PCP - General Geriatric Medicine 07/18/23 documented as of this encounter
--- OUTSIDE RECORDS SUMMARY | 2024-09-18 15:27 | XMS_ITS | Encounter Summary ---
[place] [address] Care Team Providers Care Windshield Wiper Repairer Name Role Phone Yissel Guerra APRN Primary Care Provider [phone] Reason for Visit * Reason Onset Date Comments Medication Refill 03/28/2023 Encounter Details Date Type Department Care Team (Late st Contact Info) Description 03/28/2023 Refill Weight [place] [address] Yamile Jesus MD [facility] [place] [address] Social History Tobacco Use Types Packs/Day Years [...] EST Office Visit Weight [place] [address] Yamile Jesus MD [facility] [place] [address] 12/12/2024 7:30 PM EST Procedure visit Sleep Center at [facility] [address] [place] [address] documented as of this encounter Visit Diagnoses Not on filedocumented in this encounter Care Teams Windshield Wiper Repairer Relationship Specialty Start Date End Date Yissel Guerra APRN PCP - General Family Medicine 07/04/22 07/17/23 documented as of this encounter
--- OUTSIDE RECORDS SUMMARY | 2024-09-18 15:27 | XMS_ITS | Encounter Summary ---
[place] [address] Care Team Providers Care Boring Machine Operator Double End Name Role Phone Jane Hector APRN Primary Care Provider [phone] Reason for Visit * Reason Onset Date Comments Medication Refill 09/29/2023 Encounter Details Date Type Department Care Team (Late st Contact Info) Description 09/29/2023 Telephone [place] [address] Gina Gillespie employee benefits specialist Refill Social History Tobacco Use Types Packs/Day [...] takes her shots on . Sent pt [facility] message she has 3 refills. documented in this encounter Plan of Treatment Upcoming Encounters Date Type Department Care Team (Late st Contact Info) Description 10/04/2024 3:30 PM EST Office Visit [place] [address] Yamile Jesus MD [facility] [address] [facility]LL[address] [place] [address] 12/12/2024 7:30 PM EST Procedure visit Sleep Center at [address] [place] [address] documented as of this encounter Goals Goal [...] and frozen broccoli) with sharp cheddar or pitcairn islander cheese (if you want) with piece of fruit (20-25 grams of protein) Option 2: plain yogurt, [place] ca[place] islander has more protein with small amount [...] Option 2: tuna salad with 2 tbsp tur[place] and [place] islander plain yogurt with 2 tbsp huff over spinach or lettuce If needed, Snack: All 10 grams of protein Option 1: hummus and raw vegetable and crackers (wheat thin) Option 2: cottage cheese (3/4 cup) with chives Option 3: grapes with nuts Other Nutrition Goals 60 grams of protein per day 20-25 grams of fiber per day Huff - 1 tbsp turks and [place] islander plain yogurt with 1 tbsp huff [...] in the hot weather Call Sleep medicine: [phone] documented as of this encounter Visit Diagnoses Not on filedocumented in this encounter Care Teams Boring Machine Operator Double End Relationship Specialty Start Date End Date Jane Hector APRN [address] [place] [address] PCP - General Geriatric Medicine 07/18/23 documented as of this encounter
--- OUTSIDE RECORDS SUMMARY | 2024-09-18 15:27 | XMS_ITS | Encounter Summary ---
[place] [address] Care Team Providers Care Photonic Laboratory Technician Name Role Phone Jane Hector APRN Primary Care Provider Encounter Details Date Type Department Care Team (Late st Contact Info) Description 07/28/2023 Telephone [place] [phone] Gina Gillespie RN Social History Tobacco Use [...] on it. She would also like Dr. Jesus to know that she says hi. documented in this encounter Plan of Treatment Upcoming Encounters Date Type Department Care Team (Late st Contact Info) Description 10/04/2024 3:30 PM EST Office Visit [place] [address] Yamile Jesus MD [facility] [address] [place] [address] 12/12/2024 7:30 PM EST Procedure visit Sleep Center at [facility] [address] [place] [address] documented as of this encounter Visit Diagnoses Not on filedocumented in this encounter Care Teams Photonic Laboratory Technician Relationship Specialty Start Date End Date Jane Hector APRN [address] [place] [address] PCP - General Geriatric Medicine 07/18/23 documented as of this encounter
--- OUTSIDE RECORDS SUMMARY | 2024-09-18 15:27 | XMS_ITS | Encounter Summary ---
Author Organization [facility] [place] [address] Care Team Providers Care Hogshead Stock Clerk Name Role Phone Jane Hector APRN Primary Care Provider [phone] Reason for Visit * Reason Comments Medication Refill Encounter Details Date Type Department Care Team (Late st Contact Info) Description 07/18/2023 Refill [place] [address] Yamile Jesus MD [facility] [place] [address] Type 2 diabetes mellitus without complication, unspecified whether correction insulin use Social History Tobacco Use Types [...] EST Office Visit [place] [address] Yamile Jesus MD [facility] [place] [address] 12/12/2024 7:30 PM EST Procedure visit Sleep Center at [facility] [address] [place] [address] documented as of this encounter Visit Diagnoses Diagnosis Type 2 diabetes mellitus without complication, unspecified whether manager terminal insulin use documented in this encounter Care Teams Hogshead Stock Clerk Relationship Specialty Start Date End Date Jane Hector APRN [address] [place] [address] PCP - General Geriatric Medicine 07/18/23 documented as of this encounter
--- OUTSIDE RECORDS SUMMARY | 2024-09-18 15:27 | XMS_ITS | Encounter Summary ---
[place] [address] Care Team Providers Care Ranch Supervisor Name Role Phone Yissel Guerra APRN Primary Care Provider [phone] Reason for Visit * Reason Onset Date Comments Medication Refill 02/28/2023 Encounter Details Date Type Department Care Team (Late st Contact Info) Description 02/28/2023 Refill [place] [address] Yamile Jesus MD [facility] [address] BELLO [facility] MEDICINE [place], [place] [id number] Social History Tobacco Use Types Packs/Day Years [...] EST Office Visit [place] [address] Yamile Jesus MD [facility] [address] BELL[address] [facility] [address] 12/12/2024 7:30 PM EST Procedure visit Sleep Center at [facility] [address] [place] [address] documented as of this encounter Visit Diagnoses Not on filedocumented in this encounter Care Teams Ranch Supervisor Relationship Specialty Start Date End Date Yissel Guerra APRN PCP - General Family Medicine 07/04/22 07/17/23 documented as of this encounter
--- OUTSIDE RECORDS SUMMARY | 2024-09-18 15:27 | XMS_ITS | Encounter Summary ---
[place] [address] Care Team Providers Care Hip Hop Dancer Name Role Phone Yissel Guerra APRN Primary Care Provider [phone]- [phone] Encounter Details Date Type Department Care Team [...] EST Office Visit [place] [address] Yamile Jesus MD [facility] [address] BELL[place] [address] 12/12/2024 7:30 PM EST Procedure visit Sleep Center at [facility] [address] [place] [address] documented as of this encounter Visit Diagnoses Not on filedocumented in this encounter Care Teams Hip Hop Dancer Relationship Specialty Start Date End Date Yissel Guerra APRN PCP - General Family Medicine 07/04/22 07/17/23 documented as of this encounter
--- OUTSIDE RECORDS SUMMARY | 2024-09-18 15:27 | XMS_ITS | Encounter Summary ---
[place] [address] Care Team Providers Care Solutions Manager Name Role Phone Yissel Guerra APRN Primary Care Provider [phone] Reason for Visit * Reason Onset Date Comments Medication Refill 03/28/2023 Encounter Details Date Type Department Care Team (Late st Contact Info) Description 03/28/2023 Telephone [place] [address] Yamile Jesus MD [facility] [address] BELL[address] [place] [address] Medication Refill Social History Tobacco Use Types [...] Would like to increase to 7.5 mg. [facility]. Update: Called pt. Med pended to pharmacy for provider to sign. She is in clinic so it might take a day or two for it to be done. documented in this encounter Plan of Treatment Upcoming Encounters Date Type Department Care Team (Late st Contact Info) Description 10/04/2024 3:30 PM EST Office [place] [address] Yamile Jesus MD [facility] [address] BELL[address] [place] [address] 12/12/2024 7:30 PM EST Procedure visit Sleep Center at [facility] [address] [place] [address] documented as of this encounter Visit Diagnoses Not on filedocumented in this encounter Care Teams Solutions Manager Relationship Specialty Start Date End Date Yissel Guerra APRN PCP - General Family Medicine 07/04/22 07/17/23 documented as of this encounter
--- OUTSIDE RECORDS SUMMARY | 2024-09-18 15:27 | XMS_ITS | Encounter Summary ---
[place] [address] Care Team Providers Care Thermo Processor Name Role Phone Jane Hector APRN Primary Care Provider [phone] Reason for Visit * Reason Onset Date Comments Medication Problem 08/08/2023 Encounter Details Date Type Department Care Team (Late st Contact Info) Description 08/08/2023 Telephone [place] [address] Gina Gillespie printing table worker Problem Social History Tobacco Use Types Packs/Day [...] EST Office Visit [place] [address] Yamile Jesus MD [facility] [address] BELL[address] [place] [address] 12/12/2024 7:30 PM EST Procedure visit Sleep Center at [facility] [address] [place] [address] documented as of this encounter Visit Diagnoses Not on filedocumented in this encounter Care Teams Thermo Processor Relationship Specialty Start Date End Date Jane Hector APRN [address] [place] [address] PCP - General Geriatric Medicine 07/18/23 documented as of this encounter
--- OUTSIDE RECORDS SUMMARY | 2024-09-18 15:27 | XMS_ITS | Encounter Summary ---
[place] [address] Care Team Providers Care Manager Metal Name Role Phone Yissel Guerra APRN Primary Care Provider [phone]- [phone] Encounter Details Date Type Department Care Team (Late st Contact Info) Description 06/02/2023 Telephone [place] [address] Celia Mike Social History Tobacco [...] EST Office Visit [place] [address] Yamile Jesus MD [facility] [address] [facility] [place] [address] 12/12/2024 7:30 PM EST Procedure visit Sleep Center at [address] [place] [address] documented as of this encounter Visit Diagnoses Not on filedocumented in this encounter Care Teams Manager Metal Relationship Specialty Start Date End Date Yissel Guerra APRN PCP - General Family Medicine 07/04/22 07/17/23 documented as of this encounter
--- OUTSIDE RECORDS SUMMARY | 2024-09-18 15:27 | XMS_ITS | Encounter Summary ---
Author Organization [facility] [place] [address] Care Team Providers Care Logistics And Planning Manager Name Role Phone Yissel Guerra APRN Primary Care Provider Encounter Details Date Type Department Care Team (Late st Contact Info) Description 06/15/2023 12:00 PM EDT Notes Only [place] [address] Social History Tobacco Use Types Packs/Day Years Used Date Smoking Tobacco: Never Smokeless Tobacco: Never Sex and Gender Information Value Date Recorded Sex Assigned at Female 08/24/2023 3:35 PM EDT Gender Identity Female 08/24/2023 3:29 PM EDT Sexual Orientation Straight 08/24/2023 3: 35 PM EDT documented as of this encounter Progress Notes * Laci Carolina - 06/15/2023 12:00 PM EDT Patient attended [facility] documented in this encounter Plan of Treatment Upcoming Encounters Date Type Department Care Team (Late st Contact Info) Description 10/04/2024 3:30 PM EST Office Visit [place] [address] Yamile Jesus MD [facility] [address] BELLO [facility] MED[facility] [place], [place] [phone] 12/12/2024 7:30 PM EST Procedure visit Sleep Center at [facility] [address] [place] [address] documented as of this encounter Visit Diagnoses Not on filedocumented in this encounter Care Teams Logistics And Planning Manager Relationship Specialty Start Date End Date Yissel Guerra APRN PCP - General Family Medicine 07/04/22 07/17/23 documented as of this encounter
--- OUTSIDE RECORDS SUMMARY | 2024-09-18 15:27 | XMS_ITS | Encounter Summary ---
Author Organization [facility] [place] [address] Care Team Providers Care Cafeteria Monitor Name Role Phone Yissel Guerra APRN Primary Care Provider Encounter Details Date Type Department Care Team (Late st Contact Info) Description 02/10/2023 Telephone [place] [address] Odette Fairbanks, RN Social History [...] EST Office Visit [place] [address] Yamile Jesus MD [facility] [address] BELL[address] [place] [address] 12/12/2024 7:30 PM EST Procedure visit Sleep Center at [address] [place] [address] documented as of this encounter Visit Diagnoses Not on filedocumented in this encounter Care Teams Cafeteria Monitor Relationship Specialty Start Date End Date Yissel Guerra APRN PCP - General Family Medicine 07/04/22 07/17/23 documented as of this encounter
--- OUTSIDE RECORDS SUMMARY | 2024-09-18 15:27 | XMS_ITS | Encounter Summary ---
Author Organization [place] [address] Care Team Providers Care Director Of Retail Operations Name Role Phone Jane Hector APRN Primary Care Provider [phone] Reason for Visit * Reason Onset Date Comments Triage 09/18/2023 Encounter Details Date Type Department Care Team (Late st Contact Info) Description 09/18/2023 Telephone [place] [address] [facility] [address] [facility] [place] [id number] Triage Social History Tobacco Use Types Packs/Day [...] calling again today to speak with Selam BARROW regarding possible low blood sugars, and what to eat when that occurs. Please return call to discuss. * Telephone Encounter - Pam Glass - 09/18/2023 4:47 PM EST Message: Patient calling stating they believe they are experiencing low blood sugar. Patient statedat times they are experiencing weakness in their muscles. Patient stated they usually get their [id number] from their PCP every 3 months. Patient [...] leave a message: yes Ok to send [facility] message: yes Offered Appointment: n/a Message: X Call made to private secretary or nurse Y/N n/a Pager: Y/N n.a documented in this encounter Plan of Treatment Upcoming Encounters Date Type Department Care Team (Late st Contact Info) Description 10/04/2024 3:30 PM EST Office Visit [place] [address] Yamile Jesus MD [facility] [address] BELLO [facility] [address] 12/12/2024 7:30 PM EST Procedure visit Sleep Center at [facility] [address] [place] [address] documented as of this encounter Goals Goal [...] and frozen broccoli) with sharp cheddar or syrian cheese (if you want) with piece of [...] in the hot weather Call Sleep medicine: [phone] documented as of this encounter Visit Diagnoses Not on filedocumented in this encounter Care Teams Director Of Retail Operations Relationship Specialty Start Date End Date Jane Hector APRN [address] [place] [address] PCP - General Geriatric Medicine 07/18/23 documented as of this encounter
--- OUTSIDE RECORDS SUMMARY | 2024-09-18 15:27 | XMS_ITS | Encounter Summary ---
[place] [address] Care Team Providers Care Physical Meteorologist Name Role Phone Yissel Guerra APRN Primary Care Provider [phone] Encounter Details Date Type Department Care Team (Late st Contact Info) Description 04/14/2023 3:00 PM EDT Office Visit [place] [address] Yamile Jesus MD [facility] [address] [place] [address] Type 2 diabetes mellitus without complication, unspecified whether long chain dyeing machine operator insulin use; Hypertension, unspecified type; Mixed [...] from the original note were not included. [facility] Patient [...] thyroid disease. . This is Visit #3 [facility] visit for this 62 y.o. patient. Initial weight 12/03/22: 284 lbs 02/03/2023, no new weight 04/14/2023, 251 lbs (- 33 lbs) [facility] Team: RD in the community [...] from home. Lonely - live in the [facility]. Sleep - I cannot sleep, [...] found for: GLUCFASTING No results found for: [id number] No results found for: 25OHVITD No results [...] 2 diabetes mellitus without complication, unspecified whether snf insulin use - tirzepatide 10 mg/0.5 mL [...] file. 1 min chart review 30 min [id number] visit 5 min documentation time I spent [...] EST Office Visit [place] [address] Yamile Jesus MD [facility] [address] [place] [address] 12/12/2024 7:30 PM EST Procedure visit Sleep Center at [facility] [address] [place] [address] documented as of this encounter Visit Diagnoses Diagnosis Type 2 diabetes mellitus without complication, unspecified whether long chain dyeing machine operator insulin use Hypertension, unspecified type Mixed anxiety and depressive disorder Dysthymic disorder Hypothyroidism, unspecified type CIARA (obstructive sleep apnea) Obstructive sleep apnea (adult) (pediatric) Class 3 severe obesity with serious comorbidity and body mass index (BMI) of 40.0 to 44.9 in adult, unspecified obesity type documented in this encounter Care Teams Physical Meteorologist Relationship Specialty Start Date End Date Yissel Guerra APRN PCP - General Family Medicine 07/04/22 07/17/23 documented as of this encounter
--- OUTSIDE RECORDS SUMMARY | 2024-09-18 15:27 | XMS_ITS | Encounter Summary ---
[place] [address] Care Team Providers Care Golf Course Equipment Operator Name Role Phone Yissel Guerra APRN Primary Care Provider [phone] Encounter Details Date Type Department Care Team (Late st Contact Info) Description 03/01/2023 Telephone [place] [address] Yamile Jesus MD [facility] DR BELLO [place] [address] Social History Tobacco Use Types Packs/Day Years [...] got it changed. She should beable to rock picker her medication shortly. documented in this encounter Plan of Treatment Upcoming Encounters Date Type Department Care Team (Late st Contact Info) Description 10/04/2024 3:30 PM EST Office Visit [place] [address] Yamile Jesus MD [facility] [address] [place] [address] 12/12/2024 7:30 PM EST Procedure visit Sleep Center at [facility] [address] [place] [address] documented as of this encounter Visit Diagnoses Not on filedocumented in this encounter Care Teams Golf Course Equipment Operator Relationship Specialty Start Date End Date Yissel Guerra APRN PCP - General Family Medicine 07/04/22 07/17/23 documented as of this encounter
--- OUTSIDE RECORDS SUMMARY | 2024-09-18 15:27 | XMS_ITS | Encounter Summary ---
Author Organization [facility] [place] [address] Care Team Providers Care Industrial Waste Treatment Technician Name Role Phone Jane Hector APRN Primary Care Provider [phone] Encounter Details Date Type Department Care Team (Late st Contact Info) Description 08/30/2023 4:00 PM EST TH Visit (TeleHealth) [place] [address] [facility] [place] [address] Class 3 severe obesity with serious comorbidity [...] past visits. Please reach out with a [employer]ing[employer] message if you have any questions or concerns. Thank you, Gian Mendez RD, LD Goals Nutrition Goal Meal [...] and frozen broccoli) with sharp cheddar or guamanian cheese (if you want) with piece of fruit (20-25 grams of protein) Option 2: plain yogurt, cambodian has more protein with small amount of [...] Option 2: tuna salad with 2 tbsp cambodian plain yogurt with 2 tbsp huff over spinach or lettuce If needed, Snack: All 10 grams of protein Option 1: hummus and raw vegetable and crackers (wheat thin) Option 2: cottage cheese (3/4 cup) with chives Option 3: grapes with nuts Other Nutrition Goals 60 grams of protein per day Huff - 1 tbsp cambodian plain yogurt with 1 tbsp huff Limit the sweet treats to dark chocolate. Freeze portions of dark chocolate. documented in this encounter Progress Notes * Gina Mendez RD - 08/30/2023 4:00 PM ESTSummary: [facility] New Patient Nutrition Intervention for Weight Management Initial RD visit with CARO Merritt 1960 Location: [facility] care team: Yamile Jesus Weight Today: Wt [...] not gone to the sleep clinic at [facility] b/c does not have the cognition for answering the sleeping survey. Going to check with PCP about sleep referral. Wt loss history: See notes from Dr. Jesus Food Tracking: Not appropriate to discuss Typical [...] and frozen broccoli) with sharp cheddar or guamanian cheese (if you want) with piece of fruit (20-25 grams of protein) Option 2: plain yogurt, cambodian has more protein with small amount of [...] Option 2: tuna salad with 2 tbsp cambodian plain yogurt with 2 tbsp huff over spinach or lettuce If needed, Snack: All 10 grams of protein Option 1: hummus and raw vegetable and crackers (wheat thin) Option 2: cottage cheese (3/4 cup) with chives Option 3: grapes with nuts Other Nutrition Goals 60 grams of protein per day Huff - 1 tbsp cambodian plain yogurt with 1 tbsp huff Limit the sweet treats to dark chocolate. Freeze portions of dark chocolate. Handouts provided today: No handouts provided Monitor/Evaluate: 2 months Thank you, Gina Mendez PhD, RD, LD 60 minutes were spent [id number] with this patient today, whether in person or by zoom as specified above documented in this encounter Plan of Treatment Upcoming Encounters Date Type Department Care Team (Late st Contact Info) Description 10/04/2024 3:30 PM EST Office Visit [place] [address] Yamile Jesus MD [facility] [address] [place] [address] 12/12/2024 7:30 PM EST Procedure visit Sleep Center at [address] [place] [address] documented as of this encounter Goals Goal [...] and frozen broccoli) with sharp cheddar or guamanian cheese (if you want) with piece of fruit (20-25 grams of protein) Option 2: plain yogurt, cambodian has more protein with small amount of [...] Option 2: tuna salad with 2 tbsp cambodian plain yogurt with 2 tbsp huff over spinach or lettuce If needed, Snack: All 10 grams of protein Option 1: hummus and raw vegetable and crackers (wheat thin) Option 2: cottage cheese (3/4 cup) with chives Option 3: grapes with nuts Other Nutrition Goals 60 grams of protein per day 20-25 grams of fiber per day Huff - 1 tbsp cambodian plain yogurt with 1 tbsp huff Limit [...] pickled beets 9. Limit the frappachinos from [employer], try a cold brew coffee in the hot weather Call Sleep medicine: [phone] documented as of this encounter Visit Diagnoses Diagnosis Class 3 severe obesity with serious comorbidity and body mass index (BMI) of 40.0 to 44.9 in adult, unspecified obesity type documented in this encounter Care Teams Industrial Waste Treatment Technician Relationship Specialty Start Date End Date Jane Hector APRN [address] [place] [address] PCP - General Geriatric Medicine 07/18/23 documented as of this encounter
--- OUTSIDE RECORDS SUMMARY | 2024-09-18 15:27 | XMS_ITS | Encounter Summary ---
[place] [address] Care Team Providers Care Cracker Sprayer Name Role Phone Jane Hector APRN Primary Care Provider [phone] Reason for Visit * Reason Onset Date Comments Medication Problem 08/07/2023 Medication Reaction 08/07/2023 Encounter Details Date Type Department Care Team (Late st Contact Info) Description 08/07/2023 Telephone [place] [address] Gina Gillespie nonprofit director Problem; Medication Reaction Social History Tobacco Use [...] EST Office Visit [place] [address] Yamile Jesus MD [facility] DR EBLL[address] [place] [address] 12/12/2024 7:30 PM EST Procedure visit Sleep Center at [facility] [address] [place] [address] documented as of this encounter Visit Diagnoses Not on filedocumented in this encounter Care Teams Cracker Sprayer Relationship Specialty Start Date End Date Jane Hector APRN [address] [place] [address] PCP - General Geriatric Medicine 07/18/23 documented as of this encounter
--- OUTSIDE RECORDS SUMMARY | 2024-09-18 15:27 | XMS_ITS | Encounter Summary ---
[place] [address] Care Team Providers Care Real Estate Financial Analyst Name Role Phone Jane Hector APRN Primary Care Provider [phone] Encounter Details Date Type Department Care Team (Late st Contact Info) Description 08/22/2023 Telephone [place] [address] Gina Gillespie RN Social History Tobacco Use [...] Called pt and left message per Dr. Jesus said that she can try them if [...] EST Office Visit [place] [address] Yamile Jesus MD [facility] [address] BELLO [place] [address] 12/12/2024 7:30 PM EST Procedure visit Sleep Center at [facility] [address] [place] [address] documented as of this encounter Visit Diagnoses Not on filedocumented in this encounter Care Teams Real Estate Financial Analyst Relationship Specialty Start Date End Date Jane Hector APRN [address] [place] [address] PCP - General Geriatric Medicine 07/18/23 documented as of this encounter
--- OUTSIDE RECORDS SUMMARY | 2024-09-18 15:27 | XMS_ITS | Encounter Summary ---
Author Organization [facility] [place] [address] Care Team Providers Care Etcher Hand Name Role Phone Yissel Guerra APRN Primary Care Provider Encounter Details Date Type Department Care Team (Late st Contact Info) Description 06/05/2023 5:30 PM EDT Notes Only Weight [place] [address] Social History Tobacco Use Types [...] - 06/05/2023 5:30 PM EDT Patient attended [facility] # 3 documented in this encounter Plan of Treatment Upcoming Encounters Date Type Department Care Team (Late st Contact Info) Description 10/04/2024 3:30 PM EST Office Visit Weight [place] [address] Yamile Jesus MD [facility] DR BELLO [facility] MEDICINE [place], [place] [address] 12/12/2024 7:30 PM EST Procedure visit Sleep Center at [facility] [address] [place] [address] documented as of this encounter Visit Diagnoses Not on filedocumented in this encounter Care Teams Etcher Hand Relationship Specialty Start Date End Date Yissel Guerra APRN PCP - General Family Medicine 07/04/22 07/17/23 documented as of this encounter
--- OUTSIDE RECORDS SUMMARY | 2024-09-18 15:27 | XMS_ITS | Encounter Summary ---
Author Organization [facility] [place] [address] Care Team Providers Care Clinical Lab Scientist Name Role Phone Yissel Guerra APRN Primary Care Provider Encounter Details Date Type Department Care Team (Late st Contact Info) Description 06/22/2023 12:00 PM EDT Notes [place] [address] Social History Tobacco Use Types [...] 12:00 PM EDT Patient attended [facility] # 5 documented in this encounter Plan of Treatment Upcoming Encounters Date Type Department Care Team (Late st Contact Info) Description 10/04/2024 3:30 PM EST Office [place] [address] Yamile Jesus MD [facility] [address] BELLO [facility] MEDICINE [place], [place] [address] 12/12/2024 7:30 PM EST Procedure visit Sleep Center at [facility] [address] [place] [address] documented as of this encounter Visit Diagnoses Not on filedocumented in this encounter Care Teams Clinical Lab Scientist Relationship Specialty Start Date End Date Yissel Guerra APRN PCP - General Family Medicine 07/04/22 07/17/23 documented as of this encounter
--- OUTSIDE RECORDS SUMMARY | 2024-09-18 15:27 | XMS_ITS | Encounter Summary ---
[facility] [address] Care Team Providers Care Brine Well Operator Name Role Phone Jane Hector APRN Primary Care Provider [phone]- [phone] Encounter Details Date Type Department Care Team [...] EST Office Visit [place] [address] Yamile Jesus MD [facility] [address] BELL[facility] [place] [address] 12/12/2024 7:30 PM EST Procedure visit Sleep Center at [place] [address] [place] [address] documented as of this encounter Visit Diagnoses Not on filedocumented in this encounter Care Teams Brine Well Operator Relationship Specialty Start Date End Date Jane Hector APRN [address] [place] [address] PCP - General Geriatric Medicine 07/18/23 documented as of this encounter
--- OUTSIDE RECORDS SUMMARY | 2024-09-18 15:27 | XMS_ITS | Encounter Summary ---
[place] [address] Care Team Providers Care Citizen Participation Specialist Name Role Phone Yissel Guerra APRN Primary Care Provider Encounter Details Date Type Department Care Team (Late st Contact Info) Description 04/05/2023 Telephone [place] [address] Gina Gillespie RN Social History [...] for it if so. Message sent to Hand Filer Balance Wheel for scheduling. documented in this encounter Plan of Treatment Upcoming Encounters Date Type Department Care Team (Late st Contact Info) Description 10/04/2024 3:30 PM EST Office Visit [place] [address] Yamile Jesus MD [facility] [address] [address] 12/12/2024 7:30 PM EST Procedure visit Sleep Center at [address] [place] [address] documented as of this encounter Visit Diagnoses Not on filedocumented in this encounter Care Teams Citizen Participation Specialist Relationship Specialty Start Date End Date Yissel Guerra APRN PCP - General Family Medicine 07/04/22 07/17/23 documented as of this encounter
--- OUTSIDE RECORDS SUMMARY | 2024-09-18 15:27 | XMS_ITS | Encounter Summary ---
[place] [address] Care Team Providers Care Mental Health Tech Name Role Phone Yissel Guerra APRN Primary Care Provider [phone]- [phone] Encounter Details Date Type Department Care Team [...] EST Office Visit [place] [address] Yamile Jesus MD [facility] [address] [facility]LL[facility] [address] 12/12/2024 7:30 PM EST Procedure visit Sleep Center at [facility] [address] [place] [address] documented as of this encounter Visit Diagnoses Not on filedocumented in this encounter Care Teams Mental Health Tech Relationship Specialty Start Date End Date Yissel Guerra APRN PCP - General Family Medicine 07/04/22 07/17/23 documented as of this encounter
--- OUTSIDE RECORDS SUMMARY | 2024-09-18 15:27 | XMS_ITS | Encounter Summary ---
[place] [address] Care Team Providers Care Dairy Lab Technician Name Role Phone Yissel Guerra APRN Primary Care Provider [phone] Encounter Details Date Type Department Care Team (Late st Contact Info) Description 06/07/2023 12:30 PM EDT Office Visit [place] [address] Yamile Jesus MD [facility] DR BELLO [facility] [address] Type 2 diabetes mellitus without complication, unspecified whether intermediate frame tender insulin use; Hypertension, unspecified type; Mixed anxiety [...] from the original note were not included. [facility] Wellness [facility] [...] thyroid disease. . This is Visit #4 [facility] visit for this 62 y.o. patient. Initial weight 12/03/22: 284 lbs 02/03/2023, no new weight 04/14/2023, 251 lbs (- 33 lbs) 06/07/2023, 254 lbs (+ 3 lbs, - 30 lbs) [facility] Team: RD in the community HPI Had US done for DUB, on norethindrone, states lining is thickened, going to have IUD placed in Jun. Notes a mole top of scalp, picture taken by foreign languages department chair, will show PCP. PILLARS Stress [...] Vitals: 06/07/23 1220 BP: 120/65 BP Location ([facility]): Right arm Patient Position: Sitting BP Cuff [...] found for: GLUCFASTING No results found for: [id number] No results found for: 25OHVITD No results [...] without complication, unspecified whether fdc insulin use Hypertension, unspecified type Mixed anxiety [...] me. 1 min chart review 25 min [id number] visit 5 min documentation time I spent [...] EST Office Visit [place] [address] Yamile Jesus MD [facility] DR [facility]LLO [facility] [address] 12/12/2024 7:30 PM EST Procedure visit Sleep Center at [facility] [address] [place] [address] documented as of this encounter Visit Diagnoses Diagnosis Type 2 diabetes mellitus without complication, unspecified whether intermediate frame tender insulin use Hypertension, unspecified type Mixed anxiety and depressive disorder Dysthymic disorder Hypothyroidism, unspecified type CIARA (obstructive sleep apnea) Obstructive sleep apnea (adult) (pediatric) Class 3 severe obesity with serious comorbidity and body mass index (BMI) of 40.0 to 44.9 in adult, unspecified obesity type documented in this encounter Care Teams Dairy Lab Technician Relationship Specialty Start Date End Date Yissel Guerra, CHAIN SAW MECHANIC PCP - General Family Medicine 07/04/22 07/17/23 documented as of this encounter
--- OUTSIDE RECORDS SUMMARY | 2024-09-18 15:27 | XMS_ITS | Encounter Summary ---
[place] [address] Care Team Providers Care Drawing Supervisor Name Role Phone Jane Hector APRN Primary Care Provider [phone] Encounter Details Date Type Department Care Team (Late st Contact Info) Description 08/09/2023 5:30 PM EDT Notes [place] [address] Social History Tobacco Use Types Packs/Day Years [...] EST Office Visit [place] [address] Yamile Jesus MD [facility] [address] [facility]LL[address] [facility] [address] 12/12/2024 7:30 PM EST Procedure visit Sleep Center at [facility] [address] [place] [address] documented as of this encounter Visit Diagnoses Not on filedocumented in this encounter Care Teams Drawing Supervisor Relationship Specialty Start Date End Date Jane Hector APRN [address] [place] [address] PCP - General Geriatric Medicine 07/18/23 documented as of this encounter
--- OUTSIDE RECORDS SUMMARY | 2024-09-18 15:27 | XMS_ITS | Encounter Summary ---
[place] [address] Care Team Providers Care Store Clerk Checker Name Role Phone Yissel Guerra APRN Primary Care Provider [phone] Reason for Visit * Reason Onset Date Comments Medication Problem 06/27/2023 Encounter Details Date Type Department Care Team (Late st Contact Info) Description 06/27/2023 Telephone [place] [address] Nany Dobson Medication Problem Social History Tobacco [...] Called and left message. I will send [facility] and if she has further questions she [...] EST Office Visit [place] [address] Yamile Jesus MD [facility] [address] [facility]LL[facility] [address] 12/12/2024 7:30 PM EST Procedure visit Sleep Center at [facility] [address] [place] [address] documented as of this encounter Visit Diagnoses Not on filedocumented in this encounter Care Teams Store Clerk Checker Relationship Specialty Start Date End Date Yissel Guerra APRN PCP - General Family Medicine 07/04/22 07/17/23 documented as of this encounter
--- OUTSIDE RECORDS SUMMARY | 2024-09-18 15:27 | XMS_ITS | Encounter Summary ---
[place] [address] Care Team Providers Care Stone Gluer Name Role Phone Yissel Guerra APRN Primary Care Provider [phone] Reason for Visit * Reason Onset Date Comments Medication Refill 05/01/2023 Encounter Details Date Type Department Care Team (Late st Contact Info) Description 05/01/2023 Refill [place] [address] Yamile Jesus MD [facility] [address] [facility]LL[address] [place] [address] Social History Tobacco Use Types Packs/Day Years [...] EST Office Visit [place] [address] Yamile Jesus MD [facility] [address] [facility]LL[facility] [place] [address] 12/12/2024 7:30 PM EST Procedure visit Sleep Center at [facility] [address] [place] [address] documented as of this encounter Visit Diagnoses Not on filedocumented in this encounter Care Teams Stone Gluer Relationship Specialty Start Date End Date Yissel Guerra APRN PCP - General Family Medicine 07/04/22 07/17/23 documented as of this encounter
--- OUTSIDE RECORDS SUMMARY | 2024-09-18 15:27 | XMS_ITS | Encounter Summary ---
[place] [address] Care Team Providers Care Wood Sash And Frame Carpenter Name Role Phone Jane Hector APRN Primary Care Provider [phone] Encounter Details Date Type Department Care Team (Late st Contact Info) Description 07/19/2023 5:30 PM EDT Notes [place] [address] Social History Tobacco Use Types Packs/Day Years [...] EST Office Visit [place] [address] Yamile Jesus MD [facility] [address] [facility]LL[facility] [address] 12/12/2024 7:30 PM EST Procedure visit Sleep Center at [facility] [address] [place] [address] documented as of this encounter Visit Diagnoses Not on filedocumented in this encounter Care Teams Wood Sash And Frame Carpenter Relationship Specialty Start Date End Date Jane Hector APRN [address] [place] [address] PCP - General Geriatric Medicine 07/18/23 documented as of this encounter
--- OUTSIDE RECORDS SUMMARY | 2024-09-18 15:27 | XMS_ITS | Encounter Summary ---
Author Organization [facility] [place] [address] Care Team Providers Care Service Developer Name Role Phone Jane Hector APRN Primary Care Provider [phone] Encounter Details Date Type Department Care Team (Late st Contact Info) Description 10/02/2023 Telephone Weight [place] [address] [facility] [place] [place] [address] Social History Tobacco Use Types Packs/Day Years [...] EST Office Visit Weight [place] [address] Yamile Jesus MD [facility] DR BELL[facility] [address] 12/12/2024 7:30 PM EST Procedure visit Sleep Center at [facility] [address] [place] [address] documented as of this encounter Goals Goal [...] and frozen broccoli) with sharp cheddar or bahraini cheese (if you want) with piece of fruit (20-25 grams of protein) Option 2: plain yogurt, russian has more protein with small amount of [...] Option 2: tuna salad with 2 tbsp russian plain yogurt with 2 tbsp huff over spinach or lettuce If needed, Snack: All 10 grams of protein Option 1: hummus and raw vegetable and crackers (wheat thin) Option 2: cottage cheese (3/4 cup) with chives Option 3: grapes with nuts Other Nutrition Goals 60 grams of protein per day 20-25 grams of fiber per day Huff - 1 tbsp russian plain yogurt with 1 tbsp huff Limit [...] in the hot weather Call Sleep medicine: [phone] documented as of this encounter Visit Diagnoses Not on filedocumented in this encounter Care Teams Service Developer Relationship Specialty Start Date End Date Jane Hector APRN [address] [place] [address] PCP - General Geriatric Medicine 07/18/23 documented as of this encounter
--- OUTSIDE RECORDS SUMMARY | 2024-09-18 15:27 | XMS_ITS | Encounter Summary ---
[place] [address] Care Team Providers Care Grade And Center Marker Name Role Phone Jane Hector APRN Primary Care Provider [phone] Reason for Visit * Reason Onset Date Comments Medication Refill 08/31/2023 Encounter Details Date Type Department Care Team (Late st Contact Info) Description 08/31/2023 Refill [place] [address] Yamile Jesus MD [facility] [place] [place] [address] Type 2 diabetes mellitus without complication, unspecified whether termination clerk insulin use Social History Tobacco Use Types [...] EST Office Visit [place] [address] Yamile Jesus MD [facility] [place] [place] [address] 12/12/2024 7:30 PM EST Procedure visit Sleep Center at [facility] [address] [place] [address] documented as of this encounter Goals Goal [...] grams of protein) Option 2: plain yogurt, martiniquais has more protein with small amount of [...] Option 2: tuna salad with 2 tbsp martiniquais plain yogurt with 2 tbsp huff over spinach or lettuce If needed, Snack: All 10 grams of protein Option 1: hummus and raw vegetable and crackers (wheat thin) Option 2: cottage cheese (3/4 cup) with chives Option 3: grapes with nuts Other Nutrition Goals 60 grams of protein per day 20-25 grams of fiber per day Huff - 1 tbsp martiniquais plain yogurt with 1 tbsp [place] Limit Naked juice to 1 coffee cup [...] pickled beets 9. Limit the frappachinos from [facility], try a cold brew coffee in the hot weather Call Sleep medicine: [phone] documented as of this encounter Visit Diagnoses Diagnosis Type 2 diabetes mellitus without complication, unspecified whether termination clerk insulin use documented in this encounter Care Teams Grade And Center Marker Relationship Specialty Start Date End Date Jane Hector APRN [address] [place] [address] PCP - General Geriatric Medicine 07/18/23 documented as of this encounter
--- OUTSIDE RECORDS SUMMARY | 2024-09-18 15:27 | XMS_ITS | Encounter Summary ---
[place] [address] Care Team Providers Care Adolescent Coordinator Name Role Phone Jane Hector APRN Primary Care Provider [phone] Reason for Visit * Reason Onset Date Comments Medication Problem 09/01/2023 Encounter Details Date Type Department Care Team (Late st Contact Info) Description 09/01/2023 Telephone [place] [address] Gina Gillespie baseball sewer hand Problem Social History Tobacco Use Types Packs/Day Years Used Date Smoking Tobacco: Never Smokeless Tobacco: Never Sex and Gender Information Value Date Recorded Sex Assigned at Female 08/24/2023 3:35 PM EDT Gender Identity Female 08/24/2023 3:29 PM EDT Sexual Orientation Straight 08/24/2023 3: 35 PM EDT documented as of this encounter Miscellaneous Notes * Telephone Encounter - Gina Gillespie RN - 09/01/2023 2:07 PM EST Pt called and left a detailed message that [employer] is telling her that she can not shrimp picker her Mounjaro 15 mg until 09/11. They do have some in stock but will sell it if someone needs it. They willbe getting more in on 09/08. If it is time for her to get it and it is not available at [facility] they can call across the street to [facility] and transfer it if they have it in stock. Pt wanted us toknow that she still does not have the Mounjaro 15 mg yet. documented in this encounter Plan of Treatment Upcoming Encounters Date Type Department Care Team (Late st Contact Info) Description 10/04/2024 3:30 PM EST Office Visit Weight and Wellness at [facility] [place] [address] Yamile Jesus MD [facility] [address] [facility] [place] [address] 12/12/2024 7:30 PM EST Procedure visit Sleep Center at [facility] [address] [place] [address] documented as of this encounter Goals Goal [...] in the hot weather Call Sleep medicine: [phone] documented as of this encounter Visit Diagnoses Not on filedocumented in this encounter Care Teams Adolescent Coordinator Relationship Specialty Start Date End Date Jane Hector APRN [address] [place] [address] PCP - General Geriatric Medicine 07/18/23 documented as of this encounter
--- OUTSIDE RECORDS SUMMARY | 2024-09-18 15:27 | XMS_ITS | Encounter Summary ---
Author Organization [facility] [place] [address] Care Team Providers Care Camp Counselor Name Role Phone Jane Hector APRN Primary Care Provider [phone] Encounter Details Date Type Department Care Team (Late st Contact Info) Description 09/05/2023 Telephone [place] [address] Gina Gillespie RN Social History Tobacco Use [...] EST Office Visit [place] [address] Yamile Jesus MD [facility] [address] [facility] [place] [address] 12/12/2024 7:30 PM EST Procedure visit Sleep Center at [address] [place] [address] documented as of this encounter Goals [...] grams of protein) Option 2: plain yogurt, german has more protein with small amount of [...] Option 2: tuna salad with 2 tbsp german plain yogurt with 2 tbsp huff over spinach or lettuce If needed, Snack: All 10 grams of protein Option 1: hummus and raw vegetable and crackers (wheat thin) Option 2: cottage cheese (3/4 cup) with chives Option 3: grapes with nuts Other Nutrition Goals 60 grams of protein per day 20-25 grams of fiber per day Huff - 1 tbsp german plain yogurt with 1 tbsp huff Limit [...] pickled beets 9. Limit the frappachinos from [employer], try a cold brew coffee in the hot weather Call Sleep medicine: [phone] documented as of this encounter Visit Diagnoses Not on filedocumented in this encounter Care Teams Camp Counselor Relationship Specialty Start Date End Date Jane Hector APRN [address] [place] [address] PCP - General Geriatric Medicine 07/18/23 documented as of this encounter
--- OUTSIDE RECORDS SUMMARY | 2024-09-18 15:27 | XMS_ITS | Encounter Summary ---
Author [facility] [place] [address] Care Team Providers Care Chemical Reclamation Equipment Operator Name Role Phone Jane Hector APRN Primary Care Provider [phone] Encounter Details Date Type Department Care Team (Late st Contact Info) Description 08/11/2023 3:30 PM EDT Office [place] [address] Yamile Jesus MD [facility] [address] [facility] [place] [address] Type 2 diabetes mellitus without complication, unspecified whether manager terminal insulin use; Gastroesophageal reflux disease, unspecified whether [...] from the original note were not included. [facility] Patient Name: Jes [...] thyroid disease. . This is Visit #5 [facility] visit for this 62 y.o. patient. Initial weight 12/03/22: 284 lbs 02/03/2023, no new weight 04/14/2023, 251 lbs (- 33 lbs) 06/07/2023, 254 lbs (+ 3 lbs, - 30 lbs) 08/11/2023, 259 lbs (+ 4 lbs, - 26 lbs) [facility] Team: RD in the community [...] found for: GLUCFASTING No results found for: [id number] No results found for: 25OHVITD No results [...] complication, unspecified whether manager terminal insulin use - tirzepatide 15 mg/0.5 mL [...] RD. 1 min chart review 30 min [id number] visit 5 min documentation time I spent [...] EST Office Visit [place] [address] Yamile Jesus MD [facility] [address] [facility] [place] [address] 12/12/2024 7:30 PM EST Procedure visit Sleep Center at [facility] [address] [place] [address] documented as of this encounter Visit Diagnoses Diagnosis Type 2 diabetes mellitus without complication, unspecified whether half-way insulin use Gastroesophageal reflux disease, unspecified whether esophagitis present Hypertension, unspecified type Mixed anxiety and depressive disorder Dysthymic disorder Hypothyroidism, unspecified type CIARA (obstructive sleep apnea) Obstructive sleep apnea (adult) (pediatric) Class 3 severe obesity with serious comorbidity and body mass index (BMI) of 40.0 to 44.9 in adult, unspecified obesity type documented in this encounter Care Teams Chemical Reclamation Equipment Operator Relationship Specialty Start Date End Date Jane Hector APRN [address] [place] [address] PCP - General Geriatric Medicine 07/18/23 documented as of this encounter
--- OUTSIDE RECORDS SUMMARY | 2024-09-18 15:27 | XMS_ITS | Encounter Summary ---
[place] [address] Care Team Providers Care Associate Editor Name Role Phone Yissel Guerra APRN Primary Care Provider [phone] Encounter Details Date Type Department Care Team (Late st Contact Info) Description 05/24/2023 Telephone [place] [phone] Gina Gillespie RN Social History Tobacco Use [...] EST Office Visit [place] [address] Yamile Jesus MD [facility] [address] [place] [address] 12/12/2024 7:30 PM EST Procedure visit Sleep Center at [facility] [address] [place] [address] documented as of this encounter Visit Diagnoses Not on filedocumented in this encounter Care Teams Associate Editor Relationship Specialty Start Date End Date Yissel Guerra APRN PCP - General Family Medicine 07/04/22 07/17/23 documented as of this encounter
--- OUTSIDE RECORDS SUMMARY | 2024-09-18 15:27 | XMS_ITS | Encounter Summary ---
[place] [address] Care Team Providers Care Cut Lace Machine Operator Name Role Phone Jane Hector APRN Primary Care Provider [phone] Reason for Visit * Reason Onset Date Comments Medication Refill 07/18/2023 Encounter Details Date Type Department Care Team (Late st Contact Info) Description 07/18/2023 Refill [place] [phone] Gina Gillespie RN Social History Tobacco Use [...] 15 mg. [facility] needs [facility]. She is out and takes her [...] EST Office Visit [place] [address] Yamile Jesus MD [facility] [address] [place] [address] 12/12/2024 7:30 PM EST Procedure visit Sleep Center at [place] [address] [place] [address] documented as of this encounter Visit Diagnoses Not on filedocumented in this encounter Care Teams Cut Lace Machine Operator Relationship Specialty Start Date End Date Jane Hector APRN [address] [facility] [place] [address] PCP - General Geriatric Medicine 07/18/23 documented as of this encounter
--- OUTSIDE RECORDS SUMMARY | 2024-09-18 15:27 | XMS_ITS | Encounter Summary ---
[place] [address] Care Team Providers Care Guest Experience Representative Name Role Phone Jane Hector APRN Primary Care Provider [phone] Encounter Details Date Type Department Care Team (Late st Contact Info) Description 10/18/2023 Telephone [place] [phone] Yamile Jesus MD [facility] [address] [place] [address] Social History Tobacco Use Types [...] 12.5 mg/0.5 mL Pen Injector Insurance Company: [facility] MANAGED MEDICARE BiNN [id number] [facility] [id number] Patient disconnected before any other info could be obtained documented in this encounter Plan of Treatment Upcoming Encounters Date Type Department Care Team (Late st Contact Info) Description 10/04/2024 3:30 PM EST Office Visit Weight and Wellness at [facility] [place] [address] Yamile Jesus MD [facility] [address] [place] [address] 12/12/2024 7:30 PM EST Procedure visit Sleep Center at [facility] [address] [place] [address] documented as of this encounter [...] in the hot weather Call Sleep medicine: [phone] documented as of this encounter Visit Diagnoses Not on filedocumented in this encounter Care Teams Guest Experience Representative Relationship Specialty Start Date End Date Jane Hector APRN [address] [place] [address] PCP - General Geriatric Medicine 07/18/23 documented as of this encounter
--- OUTSIDE RECORDS SUMMARY | 2024-09-18 15:27 | XMS_ITS | Encounter Summary ---
Author Organization [facility] [place] [address] Care Team Providers Care Black Top Spreader Machine Operator Name Role Phone Jane Hector APRN Primary Care Provider [phone] Encounter Details Date Type Department Care Team [...] EST Office Visit [place] [address] Yamile Jesus MD [facility] [address] [place] [address] 12/12/2024 7:30 PM EST Procedure visit Sleep Center at [place] [address] [place] [address] documented as of this encounter Goals Goal [...] and frozen broccoli) with sharp cheddar or belarusian cheese (if you want) with piece of fruit (20-25 grams of protein) Option 2: plain yogurt, central african has more protein with small amount of [...] Option 2: tuna salad with 2 tbsp central african plain yogurt with 2 tbsp huff over spinach or lettuce If needed, Snack: All 10 grams of protein Option 1: hummus and raw vegetable and crackers (wheat thin) Option 2: cottage cheese (3/4 cup) with chives Option 3: grapes with nuts Other Nutrition Goals 60 grams of protein per day 20-25 grams of fiber per day Huff - 1 tbsp central african plain yogurt with 1 tbsp huff Limit [...] in the hot weather Call Sleep medicine: [phone] documented as of this encounter Visit Diagnoses Not on filedocumented in this encounter Care Teams Black Top Spreader Machine Operator Relationship Specialty Start Date End Date Jane Hector APRN [address] [place] [address] PCP - General Geriatric Medicine 07/18/23 documented as of this encounter
--- OUTSIDE RECORDS SUMMARY | 2024-09-18 15:27 | XMS_ITS | Encounter Summary ---
[place] [address] Care Team Providers Care Applied Anthropologist Name Role Phone Yissel Guerra APRN Primary Care Provider [phone] Encounter Details Date Type Department Care Team (Late st Contact Info) Description 02/15/2023 Telephone [place] [phone] Yamile Jesus MD [facility] [address] [facility] [address] Social History Tobacco Use Types [...] this year a couple months ago at [facility] in [place], [place]. Fax was sent today for those [...] it looks different. We did get you [facility] message. I will send a message as well. documented in this encounter Plan of Treatment Upcoming Encounters Date Type Department Care Team (Late st Contact Info) Description 10/04/2024 3:30 PM EST Office Visit [place] [address] Yamile Jesus MD [facility] [address] [facility] [address] 12/12/2024 7:30 PM EST Procedure visit Sleep Center at [facility] [address] [place] [address] documented as of this encounter Visit Diagnoses Not on filedocumented in this encounter Care Teams Applied Anthropologist Relationship Specialty Start Date End Date Yissel Guerra APRN PCP - General Family Medicine 07/04/22 07/17/23 documented as of this encounter
--- OUTSIDE RECORDS SUMMARY | 2024-09-18 15:28 | XMS_ITS | Clinical Summary ---
Author Organization [facility] Address [address] [place] [address] Care Team Providers Care Bank Courier Name Role Phone Unknown, Provider MD Primary Care Provider Unava ilable Allergies No known active allergies Medications metformin (GLUCOPHAGE) 500 mg tablet Take 500 mg by mouth daily. 1 Active modafinil (PROVIGIL) 200 mg tablet Take 200 mg by mouth 2 times daily. 1 Active meloxicam (MOBIC) 15 mg tablet Take 15 mg by mouth daily. Active levothyroxine (SYNTHROID) 175 mcg tablet Take 175 mcg by mouth daily. Active buPROPion (WELLBUTRIN XL) 300 mg XL tablet Take 300 mg by mouth daily. Active metoprolol (LOPRESSOR) 25 mg tablet Take 25 mg by mouth daily. 1 Active clonAZEPAM (KLONOPIN) 1 mg tablet Take 1 mg by mouth 2 times daily. 1 Active topiramate (TOPAMAX) 100 mg tablet Take 200 mg by mouth 2 times daily. Active esomeprazole (NEXIUM) 20 mg capsule Take 40 mg by mouth 2 times daily. 1 Active montelukast (SINGULAIR) 10 mg tablet Take 10 mg by mouth daily. Active duloxetine (CYMBALTA) 60 mg capsule Take 60 mg by mouth 2 times daily. 1 Active BIOTIN ORAL Take by mouth. Active HYALURONATE SODIUM (HYALURONIC ACID ORAL) Take by mouth. Active SOY ISOFLAVONE (SOY ORAL) Take by mouth. Active PRASTERONE, DHEA, (DHEA ORAL) Take by mouth. Active METHYLSULFONYLME HEATHER ORAL Take by mouth. Active VITAMIN B COMPLEX (B COMPLEX 50 ORAL) Take by mouth. Active cyclobenzaprine (FLEXERIL) 10 mg tablet Take 10 mg by mouth 3 times daily as needed. Active PHYTONADIONE (VITAMIN K ORAL) Take by mouth. Active GINKGO BILOBA (GINKOBA ORAL) Take by mouth. Active UNABLE TO FIND 20 Drops daily. Med Name: cellfood Active Multivitamins with Minerals tablet Take 1 Tab by mouth daily Active ASCORBIC ACID/VITAMIN E (CRANBERRY CONCENTRATE ORAL) Take by mouth Active Active Problems No known active problems Encounters Date Type Department Care Team Description 08/20/2024 Lab Requisition [facility] Pathology & Laboratory Medicine - [address] [address] Outr Resulting Lab, Provider from Last 3 Months Surgical History Surgery Date Site/Laterality Comments TONSILLECTOMY [...] drink = 0.6 oz pur e alcohol) Comments Unknown Sex and Gender Information Value Date Recorded Sex Assigned at Not on file Legal Sex Female 18:53 EST Gender Identity Not on file Sexual Orientation [...] Health Maintenance Due Date Last Done Comments COVID-19 Vaccine ( season) 2024 RSV Immunization ( o r 60+ Years) (1 - 1-dose 75+ series) 2035 Hepatitis C Screen Completed 03/13/2023 Procedures Procedure Name Priority Date/Time Associated Diagnosis Comments T3, TOTAL Routine 08/20/2024 14:19 EDT HEPATITIS C AB W REFLEX TO HCV RNA BY PCR Routine 03/13/2023 14:42 EDT from Last 3 Months or Most Recently Relevant to Health Maintenance Results * T3, TOTAL (08/20/2024 14:19 EDT) T3, Total 140 97 - 169 ng/dL 08/20/2024 22:30 EDT [facility] Blood VENOUS BLOOD / Unknown 08/20/2024 14:19 EDT 08/20/2024 21:38 EDT us Provider Outr Resulting Lab CHEMISTRY & BLOOD GA S ORDERABLES Final Result [facility] [address] [place] [address] * HEPATITIS C AB W REFLEX TO HCV RNA BY PCR (03/13/2023 14:42 EDT) Hep C Antibody Negative Negative 03/14/2023 10:07 EDT [facility] Blood VENOUS BLOOD / Unknown 03/13/2023 14:42 EDT 03/13/2023 21:10 EDT us Provider Outr Resulting Lab CHEMISTRY & BLOOD GA S ORDERABLES Final Result [facility] [address] [place] [address] from Last 3 Months or Most Recently Relevant to Health Maintenance Insurance MEDICAID [place] [employer] MEDICARE Care Teams Bank Courier Relationship Specialty Start Date End Date Unknown, Provider, PCP - General 07/23/23
--- OUTSIDE RECORDS SUMMARY | 2024-09-18 15:28 | XMS_ITS | Encounter Summary ---
Author Organization [facility] Address [address] [place] [address] Care Team Providers Care Pinion And Wheel Truer Name Role Phone Yissel Guerra FINANCE INTERN Primary Care Provider Unknown, Provider Primary Care Provider Unava ilable Encounter Details Date Type Department Care Team (Late st Contact Info) Description 07/06/2023 Lab Requisition [facility] Pathology & Laboratory Medicine - [facility] [address] [place] [address] Erendira Ling MD [address] [place] [address] [address] [place], [place] [address] Encounter for other general examination Social History [...] explore management options, if applicable. 07/11/2023 9:24 EDT [facility] Final Diagnosis A. ENDOMETRIUM, BIOPSY: - Fragments of benign endometrial polyp(s) - Background of inactive endometrium 07/11/2023 9:24 T [facility] Attestation By the signature below, the attending physician certifies that they have 1) personally conducted a gross and/or microscopic examination of the described specimen(s), and/or personally interpreted the results of laboratory testing of the described specimen(s), and 2) personally rendered or confirmed the above diagnosis. 07/11/2023 9:24 [facility] at 0924 Clinical History Thickened endometrial stripe 07/11/2023 9:24 EDT [facility] Gross Description A. Received in formalin labelled with proper patient identification (initials V, D) and endometrium is an aggregate of a minimal amount of castro rubbery tissue fragments and a moderate amount of admixed opaque castro-white viscous mucus (2.0 x 1.5 x 0.5 cm). Entirely submitted in A1. Mary Langston 07/07/2023 10:27 07/11/2023 9:24 EDT [facility] Performing Lab [facility] 07/11/2023 9:24 T [facility] Scanned Images 07/11/2023 9:24 EDT [facility] Tissue ENDOMETRIAL STRUCTURE / Unknown 07/06/2023 13:30 EDT 07/06/2023 23:04 EDT us Erendira Ling MD PATHOLOGY ORDERABLES Final Res ult [facility] [address] [place] [address] documented in this encounter Visit Diagnoses Diagnosis Encounter for other general examination documented in this encounter Care Teams Pinion And Wheel Truer Relationship Specialty Start Date End Date Yissel Guerra, SAIDA PCP - General 03/23/21 07/22/23 Unknown, Provider, PCP - General 07/23/23 documented as of this encounter
--- OUTSIDE RECORDS SUMMARY | 2024-09-18 15:28 | XMS_ITS | Encounter Summary ---
[place] [address] Care Team Providers Care Master Baker Name Role Phone Yissel Guerra ZACK Primary Care Provider [phone] Encounter Details Date Type Department Care Team (Late st Contact Info) Description 01/09/2023 Refill [place] [address] Ag Patel Warren Type 2 diabetes mellitus without complication, unspecified whether long term care administrator insulin use (Primary Dx); Hypertension, unspecified type [...] as she is out of the medication. [facility] [place], [place] - [address] [facility] Contact Information Phone Fax Address [phone] [facility] Type External E-Prescribing? Yes documented in this encounter Plan of Treatment Upcoming Encounters Date Type Department Care Team (Late st Contact Info) Description 10/04/2024 3:30 PM EST Office Visit Weight [place] [address] Yamile Jesus MD [facility] [address] [place] [address] 12/12/2024 7:30 PM EST Procedure visit Sleep Center at [facility] [address] [place] [address] documented as of this encounter Visit Diagnoses Diagnosis Type 2 diabetes mellitus without complication, unspecified whether jail insulin use- Primary Hypertension, unspecified type documented in this encounter Care Teams Master Baker Relationship Specialty Start Date End Date Yissel Guerra, CONCESSIONIST PCP - General Family Medicine 07/04/22 07/17/23 documented as of this encounter
--- OUTSIDE RECORDS SUMMARY | 2024-09-18 15:28 | XMS_ITS | Encounter Summary ---
[place] [address] Care Team Providers Care Tube Heater Name Role Phone Yissel Guerra APRN Primary Care Provider [phone] Encounter Details Date Type Department Care Team [...] EST Office Visit [place] [address] Yamile Jesus MD [facility] [address] [facility] [address] 12/12/2024 7:30 PM EST Procedure visit Sleep Center at [facility] [address] [place] [address] documented as of this encounter Visit Diagnoses Not on filedocumented in this encounter Care Teams Tube Heater Relationship Specialty Start Date End Date Yissel Guerra APRN PCP - General Family Medicine 07/04/22 07/17/23 documented as of this encounter
--- OUTSIDE RECORDS SUMMARY | 2024-09-18 15:28 | XMS_ITS | Encounter Summary ---
Author Organization [facility] Address [address] [place] [address] Care Team Providers Care Rubbish Collection Supervisor Name Role Phone Lukasz Sotelo MD Primary Care Provider [phone] Encounter Details Date Type Department Care Team (Late st Contact Info) Description 01/14/2013 Orders Only [facility] Spine Program - [address] [place], [place] [id number] Moisés Martinez PA-C [address] [facility] [address] Social History Tobacco Use Types [...] on filedocumented in this encounter Care Teams Rubbish Collection Supervisor Relationship Specialty Start Date End Date Lukasz Sotelo MD [address] [place], [place] [address] PCP - General 05/04/11 10/07/14 documented as of this encounter
--- OUTSIDE RECORDS SUMMARY | 2024-09-18 15:28 | XMS_ITS | Encounter Summary ---
Author Organization [facility] Address [address] [place] [address] Care Team Providers Care Retina Subspecialist Name Role Phone Unknown, Provider MD Primary Care Provider Unava ilable Encounter Details Date Type Department Care Team (Late st Contact Info) Description 08/29/2023 Lab Requisition [facility] Pathology & Laboratory Medicine - [facility] [address] [place] [address] [place], [place] [address] Disorder of the skin and subcutaneous tissue, [...] explore management options, if applicable. 08/30/2023 8:19 [facility] Final Diagnosis A. SKIN OF SCALP, MIDLINE CROWN, SHAVE BIOPSY: - Blue nevus, involving all tissue edges. See comment 08/30/2023 8:19 [facility] Diagnosis Comment The biopsy is [...] presentation and size is essential. 08/30/2023 8:19 [facility] Attestation By the signature below, the attending physician certifies that they have 1) personally conducted a gross and/or microscopic examination of the described specimen(s), and/or personally interpreted the results of laboratory testing of the described specimen(s), and 2) personally rendered or confirmed the above diagnosis. 08/30/2023 8:19 [facility] at 0819 Clinical History Aprox. 6 mm round, dark pigmented lesion, unsure how long it's been there or if it's changing; clinical diagnosis code: L98.9 08/30/2023 8:19 [facility] Gross Description A. Received in formalin labelled with proper patient identification (initials V, D) and M crown scalp is an aggregate of red-brown focally white fragments (0.3 x 0.2 x 0.1 cm). Entirely submitted in A1. JOSEPH FITZGERALD(ASCP) 08/29/2023 9:11 08/30/2023 8:19 [facility] Performing Lab [facility] 08/30/2023 8:19 [facility] Scanned Images 08/30/2023 8:19 [facility] Tissue SPECIMEN FROM SKIN / Unknown 08/28/2023 14:40 EST 08/29/2023 7:56 EST Layne Lagos DIRECTOR OF STRATEGIC MARKETING PATHOLOGY ORDERABLES Final Result [facility] [address] [place] [address] documented in this encounter Visit Diagnoses Diagnosis Disorder of the skin and subcutaneous tissue, unspecified documented in this encounter Care Teams Retina Subspecialist Relationship Specialty Start Date End Date Unknown, Provider, PCP - General 07/23/23 documented as of this encounter
--- OUTSIDE RECORDS SUMMARY | 2024-09-18 15:28 | XMS_ITS | Encounter Summary ---
Author Organization [facility] Address [address] [place] [address] Care Team Providers Care Electro Mechanical Technologist Name Role Phone Lukasz Sotelo MD Primary Care Provider [phone] Reason for Visit * Reason Onset Date Comments Advice Only 01/14/2013 Encounter Details Date Type Department Care Team (Late st Contact Info) Description 01/14/2013 Telephone [facility] Foot & Ankle Program - [address] [place], [place] [phone] Tara Owens [address] [place] [address] Advice Only Social History Tobacco Use Types [...] Telephone Encounter - Tara Owens - 01/14/2013 1439 EDT Shruthi from Re[facility] at [facility] called wanting A pt referral for Jes she has an appointment on MonJanuary 16 I called and talked with Jes there has been no changes in her symptoms Since she was last seen. Tara Owens 01/14/2013 14:41 documented in this encounter Plan of Treatment Not on file documented as of this encounter Visit Diagnoses Not on filedocumented in this encounter Care Teams Electro Mechanical Technologist Relationship Specialty Start Date End Date Lukasz Sotelo MD [address] [place] [address] PCP - General 05/04/11 10/07/14 documented as of this encounter
--- OUTSIDE RECORDS SUMMARY | 2024-09-18 15:28 | XMS_ITS | Encounter Summary ---
Author Organization [facility] Address [address] [place] [address] Care Team Providers Care Roll Forming Machine Set Up Mechanic Name Role Phone Lukasz Sotelo MD Primary Care Provider [phone] Reason for Referral * Consult, Test and Treat (Routine/Next Available) - Closed Specialty Diagnoses / Procedures Referred By Darvin segovia Referred To Contact Diagnoses Low back pain Lumbar radiculopathy Jane Reyna PA-C Referral ID Status Reason Start Date Expiration Date V isits Requested Visits Authorized [id number] Closed Specialty Services Required 02/03/2012 1 1 Question Answer Reason for Request: LUMBAR TRACTION; low back pain, lumbar radiculopathy Encounter Details Date Type Department Care Team (Late st Contact Info) Description 02/03/2012 Orders Only [facility] Spine Program - [address] [place], [place] [id number] Jane Reyna PA-C Low back pain; Lumbar [...] unspecified documented in this encounter Care Teams Roll Forming Machine Set Up Mechanic Relationship Specialty Start Date End Date Lukasz Sotelo MD [address] [place] [address] PCP - General 05/04/11 10/07/14 documented as of this encounter
--- OUTSIDE RECORDS SUMMARY | 2024-09-18 15:28 | XMS_ITS | Encounter Summary ---
Author Organization [facility] Address [address] [place] [address] Care Team Providers Care Vocational Rehabilitation Technician Name Role Phone Ramona Meyers SAIL FINISHER HAND Primary Care Provider + Reason for Visit * Reason Comments Back Pain left sided low back pain Leg Pain left leg pain Encounter Details Date Type Department Care Team (Latest Contact Info) Description 03/05/2015 15:00 EDT Office Visit [facility]ventional Pain [address] [place] [address] Johana Gonzalez MD Facet arthropathy of spine [...] 03/05/2015 15:42 EDT [facility] [address] [id number] Patient Instructions You have had your left [...] Bello : 1960 Date of Service: 12/03/2014 Heat And Vent Aircraft Mechanic: Johana Gonzalez MD Crude Tester: None Interval History: Ms. Bello presents for continued [...] to discharge. * Dai Stephenson - 03/05/2015 8316 EDT [facility] Rooming Note Does patient have a Sand Screener? yes Is patient NPO? (Solids since midnight [...] mg documented in this encounter Care Teams Vocational Rehabilitation Technician Relationship Specialty Start Date End Date Ramona Meyers FNP PCP - General 10/08/14 03/22/21 documented as of this encounter
--- OUTSIDE RECORDS SUMMARY | 2024-09-18 15:28 | XMS_ITS | Referral Summary ---
Author Organization [facility] Address [address] [place] [address] Care Team Providers Care Coremaker Experimental Name Role Phone Unknown, Provider MD Primary Care Provider Unava ilable Encounters Date Type Department Care Team Description 08/20/2024 Lab Requisition [facility] Pathology & Laboratory Medicine - [facility] [address] [place] [address] Outr Resulting Lab, Provider from Last 3 Months Allergies No known active allergies Medications metformin [...] Active Active Problems No known active problems Social [...] 97 - 169 ng/dL 08/20/2024 22:30 EDT [facility] Blood VENOUS BLOOD / Unknown 08/20/2024 14:19 EDT 08/20/2024 21:38 EDT us Provider Outr Resulting Lab CHEMISTRY & BLOOD GA S ORDERABLES Final Result [facility] [address] [place] [address] * HEPATITIS C AB W REFLEX TO HCV RNA BY PCR (03/13/2023 14:42 EDT) [facility] Hep C Antibody Negative Negative 03/14/2023 10:07 EDT [facility] Blood VENOUS BLOOD / Unknown 03/13/2023 14:42 EDT 03/13/2023 21:10 EDT us Provider Outr Resulting Lab CHEMISTRY & BLOOD GA S ORDERABLES Final Result [facility] [address] [place] [address] from Last 3 Months or Most Recently Relevant to Health Maintenance Insurance MEDICAID [place] [employer] MEDICARE Care Teams Coremaker Experimental Relationship Specialty Start Date End Date Unknown, Provider, PCP - General 07/23/23
--- OUTSIDE RECORDS SUMMARY | 2024-09-18 15:28 | XMS_ITS | Encounter Summary ---
[place] [address] Care Team Providers Care Potato Chip Maker Name Role Phone Yissel Guerra APRN Primary Care Provider [phone] Reason for Visit * Reason Onset Date Comments Questions 11/29/2022 Encounter Details Date Type Department Care Team (Late st Contact Info) Description 11/29/2022 Telephone [place] [phone] Nany Dobson Questions Social History Tobacco Use [...] EST Office Visit [place] [address] Yamile Jesus MD [facility] DR [facility] [address] 12/12/2024 7:30 PM EST Procedure visit Sleep Center at [facility] [address] [place] [address] documented as of this encounter Visit Diagnoses Not on filedocumented in this encounter Care Teams Potato Chip Maker Relationship Specialty Start Date End Date Yissel Guerra APRN PCP - General Family Medicine 07/04/22 07/17/23 documented as of this encounter
--- OUTSIDE RECORDS SUMMARY | 2024-09-18 15:28 | XMS_ITS | Encounter Summary ---
[place] [address] Care Team Providers Care Taker Out Name Role Phone Yissel Guerra APRN Primary Care Provider [phone] Encounter Details Date Type Department Care Team [...] EST Office Visit [place] [address] Yamile Jesus MD [facility] [address] [facility] [place] [address] 12/12/2024 7:30 PM EST Procedure visit Sleep Center at [facility] [address] [place] [phone] documented as of this encounter Visit Diagnoses Not on filedocumented in this encounter Care Teams Taker Out Relationship Specialty Start Date End Date Yissel Guerra APRN PCP - General Family Medicine 07/04/22 07/17/23 documented as of this encounter
--- OUTSIDE RECORDS SUMMARY | 2024-09-18 15:28 | XMS_ITS | Encounter Summary ---
Author Organization [facility] Address [address] [place] [address] Care Team Providers Care Gun Striper Name Role Phone Ramona Meyers BENEFITS TECHNICIAN Primary Care Provider + Yissel Guerra NP Primary Care Provider [phone] Unknown, Provider Primary Care Provider Unava ilable Encounter Details Date Type Department Care Team (Late st Contact Info) Description 03/15/2021 Lab Requisition [facility] Pathology & Laboratory Medicine - [facility] [address] [place] [address] Erendira Prado, MEDICAL RECORDS SUPERVISOR [address] [place] [phone] Encounter for other general examination Social History [...] Risk types, PCR Negative Negative 03/23/2021 16:15 EDT [facility] Comment:No E6 or E7 mRNA is detected from HPV types 16,18,31,33,35,39,45,51,52,56,58,59,66, and 68 by worship leader mediated amplification. Papanicolaou smear specimen (specimen) CERVIX UTERI STRUCTURE / Unknown 03/11/2021 14:45 EDT 03/19/2021 13:29 EDT us Erendira Prado NP MICROBIOLOGY - GENERAL ORDERA BLES Final Result [facility] [address] [place] [address] * PAP TEST (03/11/2021 14:45 EDT) Specimens A. Cervix and/or Endocervix , ThinPrep Imaging System with Manual Evaluation 03/23/2021 16:15 T [facility] Specimen Adequacy Satisfactory for Evaluation - transformation zone component absent 03/23/2021 16:15 [facility] General Categorization Negative for intraepithelial lesion or malignancy 03/23/2021 16:15 [facility] Attestation . 03/23/2021 16:15 [facility] at 1615 Clinical History See below 03/23/20 16:15 T [facility] HPV The result for the Human Papillomavirus (HPV) Detection-High Risk Types is Negative. No E6 or E7 mRNA is detected from HPV types 16,18,31,33,35,39 ,45,51,52,56,58,5 9,66, and 68 by worship leader mediated amplification.Kim ting was performed on specimen [id number] and was resulted on 03/23/2021 1601 EDT by [facility], LAB INSTRUMENT RESULTS IN 03/23/2021 16:15 EDT [facility] Performing Lab [facility] 03/23/2021 16:15 EDT [facility] Scanned Images 03/23/2021 16:15 EDT [facility] Papanicolaou smear specimen (specimen) CERVIX UTERI STRUCTURE / Unknown 03/11/2021 14:45 EDT 03/15/2021 10:18 EDT us Erendira Prado MEDICAL RECORDS SUPERVISOR PATHOLOGY ORDERABLES Final Re sult [facility] [address] [place] [address] documented in this encounter Visit Diagnoses Diagnosis Encounter for other general examination documented in this encounter Care Teams Gun Striper Relationship Specialty Start Date End Date Ramona Meyers FNP PCP - General 10/08/14 03/22/21 Yissel Guerra NP PCP - General 03/23/21 07/22/23 Unknown, Provider, PCP - General 07/23/23 documented as of this encounter
--- OUTSIDE RECORDS SUMMARY | 2024-09-18 15:28 | XMS_ITS | Encounter Summary ---
Author Organization [facility] Address [address] [place] [address] Care Team Providers Care Shake Sawyer Name Role Phone Ramona Meyers MARIANNE Primary Care Provider + Reason for Visit * Reason Onset Date Comments Results 03/06/2015 Encounter Details Date Type Department Care Team (Late st Contact Info) Description 03/06/2015 Telephone [facility] Interventional Pain [address] [place] [address] Johana Gonzalez MD Results Social History Tobacco [...] on filedocumented in this encounter Care Teams Shake Sawyer Relationship Specialty Start Date End Date Ramona Meyers FNP PCP - General 10/08/14 03/22/21 documented as of this encounter
--- OUTSIDE RECORDS SUMMARY | 2024-09-18 15:28 | XMS_ITS | Encounter Summary ---
Author Organization [facility] Address [address] [place] [address] Care Team Providers Care Miter Cutter Name Role Phone Lukasz Sotelo MD Primary Care Provider [phone] Reason for Visit * Reason Onset Date Comments Advice Only 01/25/2012 Encounter Details Date Type Department Care Team (Late st Contact Info) Description 01/25/2012 Telephone [facility] Interventional Pain [address] [place], [place] [phone] Johana Gonzalez MD Advice Only Social History [...] Encounter - Sarah Barrios RN - 01/25/2012 1247 EDT Left message with patient will schedule injection and she should contact Jane Jules or her PCP for PT order. * Telephone Encounter - Carlos Johana - 01/25/2012 1343 EDT Patient can return for lumbar facet injections if she would like. It is also appropriate for her to start PT if this was advised by Jane Jules or her PCP. Thank you. * Telephone Encounter - Sarah Barrios RN - 01/25/2012 1323 EDT Returned patient's [...] on filedocumented in this encounter Care Teams Miter Cutter Relationship Specialty Start Date End Date Lukasz Sotelo MD [address] [place] [address] PCP - General 05/04/11 10/07/14 documented as of this encounter
--- OUTSIDE RECORDS SUMMARY | 2024-09-18 15:28 | XMS_ITS | Encounter Summary ---
Author Organization [facility] [place] [address] Care Team Providers Care Infection Control Practitioner Name Role Phone Yissel Guerra APRN Primary Care Provider [phone] Encounter Details Date Type Department Care Team (Late st Contact Info) Description 10/21/2022 Telephone [place] [phone] Reyna Call Social History Tobacco Use Types [...] EST Office Visit [place] [address] Yamile Jesus MD [facility] DR [facility] [place] [address] 12/12/2024 7:30 PM EST Procedure visit Sleep Center at [facility] [address] [place] [address] documented as of this encounter Visit Diagnoses Not on filedocumented in this encounter Care Teams Infection Control Practitioner Relationship Specialty Start Date End Date Yissel Guerra APRN PCP - General Family Medicine 07/04/22 07/17/23 documented as of this encounter
--- OUTSIDE RECORDS SUMMARY | 2024-09-18 15:28 | XMS_ITS | Encounter Summary ---
Author Organization [facility] [place] [address] Care Team Providers Care Creosoting Engineer Name Role Phone Suki Salas MD Primary Care Provider [phone] Reason for Referral * Consultation (Routine) - Closed Specialty Diagnoses / Procedures Referred By Contac t Referred To Contact Orthopaedics Diagnoses Lumbar stenosis/ MRI 12/2017 @ [facility]/ XR prior Babatunde Mattson MD [facility] [place] [address] Loc Stephenson MD [facility] [place] [address] Referral ID Status Reason Start Date Expiration Date V isits Requested Visits Authorized [id number] Closed Consult, Test & Treat 06/06/2018 06/06/2019 1 1 Reason for Visit * Reason Onset Date Comments Medication Refill 06/06/2018 Encounter Details Date Type Department Care Team (Late st Contact Info) Description 06/06/2018 Ref[place] [address] Babatunde Mattson MD [facility] [place] [place] [address] Spinal stenosis at L4-L5 level Social History [...] EST Office Visit [facility] and Wellness at [facility] [place] [address] Yamile Jesus MD [facility] DR [facility] [facility] [address] 12/12/2024 7:30 PM EST Procedure visit Sleep Center at [facility] [address] [place] [address] Scheduled Referrals Name Type Priority Associated Diagnoses [...] level documented in this encounter Care Teams Creosoting Engineer Relationship Specialty Start Date End Date Suki Salas MD [address] [facility] [place] [address] PCP - General General Internal Medicine 11/01/1706/23 documented as of this encounter
--- OUTSIDE RECORDS SUMMARY | 2024-09-18 15:28 | XMS_ITS | Encounter Summary ---
Author Organization [facility] Address [address] [place] [address] Care Team Providers Care Salvation Army Officer Name Role Phone Yissel Guerra NP Primary Care Provider [phone] Unknown, Provider Primary Care Provider Unava ilable Encounter Details Date Type Department Care Team (Late st Contact Info) Description 04/13/[address] [facility] Pathology & Laboratory Medicine - [facility] [address] [place] [address] Celia Douglas [address] [place] [address] [place] [address] Encounter for other general examination [...] - No endometrial tissue identified. 04/16/2021 13:27 [facility] Diagnosis Comment Deeper sections have been examined. 04/16/2021 13:27 [facility] Attestation There was significant resident/fellow involvement in the diagnostic evaluation of this case. By the signature below, the attending physician certifies that they have personally conducted a gross and/or microscopic examination of the described specimens and rendered or confirmed the above diagnosis. 04/16/2021 13:27 [facility] at 1327 Clinical History Thickened endometrium 04/16/2021 13:27 [facility] Gross Description A. Received in formalin labelled with proper patient identification (initials V, D) and endometrium Bx is an aggregate of white to clear mucus, 1.8 x 1.8 x 1.8 cm. Entirely submitted in A1-A2. JOSEPH SNYDER(ASCP) 04/13/2021 7:46 04/16/2021 13:27 [facility] Resident/Jose w: Marcelino Cortes MD 04/16/2021 13:27 [facility] Performing Lab [facility] 04/16/2021 13:27 [facility] Scanned Images 04/16/2021 13:27 [facility] Tissue ENTIRE ENDOMETRIUM / Unknown 04/12/2021 16:00 EDT 04/13/2021 6:57 EDT Celia Douglas PATHOLOGY ORDERABLES Final Resul t [facility] [address] [place] [address] documented in this encounter Visit Diagnoses Diagnosis Encounter for other general examination documented in this encounter Care Teams Salvation Army Officer Relationship Specialty Start Date End Date Yissel Guerra NP PCP - General 03/23/21 07/22/23 Unknown, Provider, PCP - General 07/23/23 documented as of this encounter
--- OUTSIDE RECORDS SUMMARY | 2024-09-18 15:28 | XMS_ITS | Encounter Summary ---
Author Organization [facility] Address [address] [place] [address] Care Team Providers Care Sustainable Communities Designer Name Role Phone Lukasz Sotelo MD Primary Care Provider [phone] Reason for Visit * Reason Onset Date Comments Advice Only 01/15/2013 Encounter Details Date Type Department Care Team (Late st Contact Info) Description 01/15/2013 Telephone [facility] Foot & Ankle Program - [address] [place], [place] [phone] Tara Owens [address] [place] [address] Advice Only Social History Tobacco Use Types [...] Physical Therapy order to Rehab Services at [facility] so she could try traction therapy. She will call and schedule A appointment with Selma Mcintyre if it works so she can get a home Device Tara Owens 01/15/2013 10:41 documented in this encounter Plan of Treatment Not on file documented as of this encounter Visit Diagnoses Not on filedocumented in this encounter Care Teams Sustainable Communities Designer Relationship Specialty Start Date End Date Lukasz Sotelo MD [address] [place] [address] PCP - General 05/04/11 10/07/14 documented as of this encounter
--- OUTSIDE RECORDS SUMMARY | 2024-09-18 15:28 | XMS_ITS | Encounter Summary ---
Author Organization [facility] [place] [address] Care Team Providers Care Environmental Health Manager Name Role Phone Suki Salas MD Primary Care Provider [phone] Encounter Details Date Type Department Care Team (Latest Contact Info) Description 11/02/2017 - 11/02/2017 11:59 PM EST Hospital Encounter Radiology Library at [facility] [place] [address] Marcelino Gunderson MD [facility] [place] [address] Discharge Disposition: Home Social History Tobacco Use [...] EST Office [place] [phone] Yamile Jesus MD [facility] [address] [facility] [place] [address] 12/12/2024 7:30 PM EST Procedure visit Sleep Center at [facility] [address] [place] [address] documented as of this encounter Procedures Procedure Name Priority Date/Time Associated Diagnosis Comments FILM LIBRARY STORAGE ONLY DX SPINE Routine 11/02/2017 12:00 AM EST documented in this encounter Results * Film Library- Storage Only DX Spine (11/02/2017 12:00 AM EST) Narrative [facility] - 06/07/2018 12:20 PM EDT This exam is for storage only and is auto-finalizing. Marcelino Gunderson MD IMG FILM LIBRARY ORD ERABLES [place], [place] documented in this encounter Visit Diagnoses Not on filedocumented in this encounter Care Teams Environmental Health Manager Relationship Specialty Start Date End Date Suki Salas MD [address] [place] [address] PCP - General General Internal Medicine 11/01/1706/23 documented as of this encounter
--- OUTSIDE RECORDS SUMMARY | 2024-09-18 15:28 | XMS_ITS | Encounter Summary ---
Author Organization [facility] Address [address] [place] [address] Care Team Providers Care Vehicle Dynamics Engineer Name Role Phone Lukasz Sotelo MD Primary Care Provider [phone] Reason for Referral * Consult, Test and Treat (Routine/Next Available) - Closed Specialty Diagnoses / Procedures Referred By Darvin segovia Referred To Contact Diagnoses Low back pain Selma Mcintyre PA-C Phone: tel: fax: Referral ID Status Reason Start Date Expiration Date V isits Requested Visits Authorized [id number] Closed Specialty Services Required 01/15/2013 1 1 Question Answer Reason for Request: low back pain Comments Hx of low back pain and possibel lumbar radiculopathy. Care to focus on traction therapy. Encounter Details Date Type Department Care Team (Late st Contact Info) Description 01/15/2013 Orders Only [facility] Spine Program - [address] [address] Selma Mcintyre PA-C [address] [place] [phone] Low back pain (Primary Dx) Social [...] Lumbago documented in this encounter Care Teams Vehicle Dynamics Engineer Relationship Specialty Start Date End Date Lukasz Sotelo MD [address] [place] [address] PCP - General 05/04/11 10/07/14 documented as of this encounter
--- OUTSIDE RECORDS SUMMARY | 2024-09-18 15:28 | XMS_ITS | Encounter Summary ---
[place] [address] Care Team Providers Care Bean Snapper Name Role Phone iYssel Guerra APRN Primary Care Provider Encounter Details Date Type Department Care Team (Late st Contact Info) Description 10/04/2022 External Results Weight and Wellness at [address] [address] Shelia Roberson, RN Social History Tobacco Use [...] EST Office Visit [place] [address] Yamile Jesus MD [facility] [address] [facility] [place] [address] 12/12/2024 7:30 PM EST Procedure visit Sleep Center at [address] [address] documented as of this encounter Procedures Procedure Name Priority Date/Time Associated Diagnosis Comments HEMOGLOBIN A1C Routine 09/28/2022 [facility] EXTERNAL LABS 2 Routine 11/29/2021 documented in this encounter Results * Hemoglobin A1c (09/28/2022) Hemoglobin A1c 8.1 Blood Historical Provider CHEMISTRY ORDERAB LES * (ABNORMAL) [facility] Labs 2 - External (11/29/2021) Glucose 182(H) Sodium 137 Potassium 4.6 Chloride 102 Carbon Dioxide 26 Blood Urea Nitrogen 25(H) Creatinine 1.2(H) Est Glomerular Filtration Rate 45.67(L) Aspartate Aminotransferase 22 Alanine Aminotransferase 37 Hemoglobin 15.2 Hematocrit 45.6 White Blood Cell 9.09 Platelet 264 11/29/2021 Historical Provider EXTERNAL LAB [facility] documented in this encounter Visit Diagnoses Not on filedocumented in this encounter Care Teams Bean Snapper Relationship Specialty Start Date End Date Yissel Guerra, COMPOUNDER HELPER PCP - General Family Medicine 07/04/22 07/17/23 documented as of this encounter
--- OUTSIDE RECORDS SUMMARY | 2024-09-18 15:28 | XMS_ITS | Encounter Summary ---
Author Organization [facility] Address [address] [place] [address] Care Team Providers Care Cellulose Insulation Helper Name Role Phone Lukasz Sotelo MD Primary Care Provider [phone] Reason for Visit * Reason Comments Leg Pain left leg pain Back Pain low back pain Encounter Details Date Type Department Care Team (Latest Contact Info) Description 10/27/2011 14:30 EST Office Visit [facility] Interventional Pain [address] [place] [address] Johana Gonzalez MD Low back pain; Acquired [...] Esdras Shea RN - 10/27/2011 15:[address] [place] [address] for Pain Medicine [place] [phone] Patient Instructions You have had your Left [...] Bello : 1960 Date of Service: 10/27/2011 Agronomy Technician: Johana Gonzalez MD Retail Loan Officer: none Procedure: Transforaminal epidural steroid injection at [...] * Dai Stephenson - 10/27/2011 1421 EST [facility] Rooming Note Does patient have a Client Support Professional? yes Is patient NPO? (Solids since midnight [...] encounter Miscellaneous Notes * Scanned Note-Null - Uniforms Sales Representative, Scan - 10/28/2011 0936 EST documented in [...] may reflect changes made after this encounter. GINKGO BILOBA (GINKOBA ORAL) Take by mouth. PHYTONADIONE (VITAMIN K ORAL) Take by mouth. added in this encounter Care Teams Cellulose Insulation Helper Relationship Specialty Start Date End Date Lukasz Sotelo MD [address] [place] [address] PCP - General 7/13/11 12/16/14 documented as of this encounter
--- OUTSIDE RECORDS SUMMARY | 2024-09-18 15:28 | XMS_ITS | Encounter Summary ---
[place] [address] Care Team Providers Care Postbed Stitcher Name Role Phone Yissel Guerra APRN Primary Care Provider [phone] Reason for Visit * Consultation (Routine) - Closed Specialty Diagnoses / Procedures Referred By Darvin segovia Referred To Contact General Surgery Diagnoses Class 3 severe obesity with serious comorbidity and body mass index (BMI) of 50.0 to 59.9 in adult, unspecified obesity type Yamile Jesus MD [facility] [address] [facility] [facility] [address] [facility] [address] [place] [address] Referral ID Status Reason Start Date Expiration Date V isits Requested Visits Authorized [id number] Closed Consult, Test & Treat 12/03/2022 12/03/2023 1 1 Encounter Details Date Type Department Care Team (Late st Contact Info) Description 01/27/2023 2:00 PM EDT Notes [place] [address] Social History Tobacco Use Types [...] attended the Introduction to Bariatric Surgery at [place], [place] today 01/27/2023. documented in this encounter Plan of Treatment Upcoming Encounters Date Type Department Care Team (Late st Contact Info) Description 10/04/2024 3:30 PM EST Office [place] [address] Yamile Jesus MD [facility] [address] [facility] [facility] [address] 12/12/2024 7:30 PM EST Procedure visit Sleep Center at [facility] [address] [place] [address] Scheduled Referrals Name Type Priority Associated Diagnoses Orde r Schedule Referral to Bariatric Surgery Program Outpatient Referral Routine Class 3 severe obesity with serious comorbidity and body mass index (BMI) of 50.0 to 59.9 in adult, unspecified obesity type Ordered: 12/03/2022 documented as of this encounter Visit Diagnoses Not on filedocumented in this encounter Care Teams Postbed Stitcher Relationship Specialty Start Date End Date Yissel Guerra APRN PCP - General Family Medicine 07/04/22 07/17/23 documented as of this encounter
--- OUTSIDE RECORDS SUMMARY | 2024-09-18 15:28 | XMS_ITS | Encounter Summary ---
Author Organization [facility] Address [address] [place] [address] Care Team Providers Care Instructional Services Specialist Name Role Phone Lukasz Sotelo MD Primary Care Provider [phone] Reason for Visit * Reason Onset Date Comments Other 12/03/2013 Encounter Details Date Type Department Care Team (Late st Contact Info) Description 12/03/2013 Telephone [facility] Pediatric Genetics - [facility] [address], [place] [id number] JaswantBrigette holder, MS [address] [place], [place] [id number] Other Social History Tobacco Use Types Packs/Day [...] encounter Miscellaneous Notes * Telephone Encounter - Filomena Geeta GarciaRani, MS - 12/03/2013 1048 EST Jes called looking for information regarding genetic testing for Alzheimer Disease due to her family history (paternal cousin, etc). I explained that a family member with the condition would be thefirst person tested. If any mutation is identified in that person, then she could have testing. Shewas going to contact her cousin in [place] to see if she would do genetic testing. documented in this encounter Plan of Treatment Not on file documented as of this encounter Visit Diagnoses Not on filedocumented in this encounter Care Teams Instructional Services Specialist Relationship Specialty Start Date End Date Lukasz Sotelo MD [address] [place] [address] PCP - General 05/04/11 10/07/14 documented as of this encounter
--- OUTSIDE RECORDS SUMMARY | 2024-09-18 15:28 | XMS_ITS | Encounter Summary ---
Author Organization [facility] [place] [address] Care Team Providers Care Health And Wellness Coordinator Name Role Phone Hemanth Walton DO Primary Care Provider [phone] Reason for Visit * Reason Comments Low Back Pain Left Hip Pain * Consultation (Routine) - Closed Specialty Diagnoses / Procedures Referred By Darvin segovia Referred To Contact Orthopaedics Diagnoses Lumbar stenosis/ MRI 12/2017 @ [place]/ XR prior Babatunde Mattson MD [facility] [place] [address] Loc Stephenson MD [facility] [place] [address] Referral ID Status Reason Start Date Expiration Date V isits Requested Visits Authorized [id number] Closed Consult, Test & Treat 06/06/2018 06/06/2019 1 1 Encounter Details Date Type Department Care Team (Latest Contact Info) Description 07/04/2018 1:00 PM EDT Office [place] [address] Loc Stephenson MD [facility] [place] [address] Spondylolisthesis at L4-L5 level; Lumbar stenosis with [...] note were not included. Spine Center @ [facility] Loc Stephenson MD, MS. Director Babatunde Mattson MD [facility] [place] [address] Hemanth Walton, DO [address] [facility] [id number] Dear Colleagues, I had the pleasure of seeing this patient at the [facility] for surgical evaluation. Chief [...] the referral. Sincerely, Loc Stephenson MD MS Rx Specialist - Orthopedic Spine Surgery / Spine Center [employer] Solutions Architect - Department of Orthopedic Surgery / Academics and Research Stretcher Helper - [facility] 07/04/2018 Spine Center Response Trends Patient-reported scores: myD-H Spine Questionnaire responses 07/04/2018 Oswestry Disability Index (Range: 0-100) 38 (Moderate disability) PROMIS-10 Physical Health Score 37.4 PROMIS-10 Mental Health Score 36.3 documented in this encounter Plan of Treatment Upcoming Encounters Date Type Department Care Team (Late st Contact Info) Description 10/04/2024 3:30 PM EST Office Visit [place] [phone] Yamile Jesus MD [facility] [address] [facility] [address] 12/12/2024 7:30 PM EST Procedure visit [facility] at [address] [place] [address] documented as of this encounter Visit Diagnoses Diagnosis Spondylolisthesis at L4-L5 level Lumbar stenosis with neurogenic claudication Spinal stenosis, lumbar region, with neurogenic claudication documented in this encounter Care Teams Health And Wellness Coordinator Relationship Specialty Start Date End Date Hemanth Walton DO [address] [place] [address] PCP - General Family Medicine 07/04/18 07/03/22 documented as of this encounter
--- OUTSIDE RECORDS SUMMARY | 2024-09-18 15:28 | XMS_ITS | Continuity of Care Document ---
Author Organization [facility] Address [address] [place] [address] Care Team Providers Care Truckload Owner Operator Name Role Phone RUSSELL CORCORAN Primary Care Physician [phone] Encounter [facility] NBR [id number] Date(s): 02/16/24 - 02/16/24 [facility] Ambulatory Clinics [address] [place] [address] [place] Discharge Disposition: Home Allergies, Adverse Reactions, Alerts No Known Medication Allergies Assessment and Plan Future Appointments Medications buPROPion 300 mg/24 hours (XL) oral tablet, extended release 300 mg = 1 tab, Oral, Daily, # 60 tab, 0 Refill(s) Start Date: 05/21/23 Status: Ordered busPIRone 5 mg oral tablet 5 mg = 1 tab, Oral, TID, # 90 tab, 0 Refill(s) Start Date: 05/21/23 Status: Ordered FISH OIL CAP 1000MG FISH OIL CAP 1000MG, 0 Refill(s) Start Date: 05/21/23 Status: Ordered levothyroxine 150 mcg (0.15 mg) oral tablet 150 mcg = 1 tab, Oral, Daily, # 90 tab, 0 Refill(s) Start Date: 05/21/23 Status: Ordered lisinopril 20 mg oral tablet 20 mg = 1 tab, Oral, Daily, # 90 tab, 0 Refill(s) Start Date: 05/21/23 Status: Ordered montelukast 10 mg oral tablet 10 mg = 1 tab, Oral, Daily, # 90 tab, 0 Refill(s) Start Date: 05/21/23 Status: Ordered Mounjaro 10 mg/0.5 mL subcutaneous solution 10 mg =, Subcutaneous, every week, rotate injection sites, # 4 EA, 0 Refill(s) Start Date: 05/21/23 Status: Ordered Myrbetriq 50 mg oral tablet, extended release 50 mg = 1 tab, Oral, Daily, do not crush or chew, # 30 tab, 0 Refill(s) Start Date: 05/21/23 Status: Ordered norethindrone 5 mg oral tablet 5 mg = 1 tab, Oral, Daily, # 90 tab, 0 Refill(s) Start Date: 05/21/23 Status: Ordered vilazodone 20 mg oral tablet 0 Refill(s) Start Date: 05/21/23 Status: Ordered Vitamin D3 2000 intl units oral capsule 50 mcg 1 cap, Oral, Daily, # 60 cap, 0 Refill(s) Start Date: 05/21/23 Status: Ordered Problem List Condition Confirmation Course Effective Dates Status H ealth Status Informant Abdominal discomfort Confirmed Active Autism spectrum disorder Confirmed Active Blind right eye Confirmed Active CKD - chronic kidney disease Confirmed Active Complication of anesthesia Confirmed Active Decreased appetite Confirmed Active Depression Confirmed Active Diarrhea Confirmed Active Diarrhea Confirmed Active DM - Diabetes mellitus 1 Confirmed Active Essential hypertension Confirmed Active Pyrosis Confirmed Active Hypothyroidism Confirmed Active Incontinence Confirmed Active Insomnia Confirmed Active Irregular bowel habits Confirmed Active Lumbar radiculitis Confirmed Active Nail dystrophy Confirmed Active OA - Osteoarthritis of knee Confirmed Active Obesity Confirmed Active CIARA - Obstructive sleep apnea Confirmed Active Overactive bladder Confirmed Active Pessary Confirmed Active PTSD - Post-traumatic stress disorder Confirmed Active Sebaceous cyst Confirmed Active 1type 2 Procedures Procedure Date Related Diagnosis Body Site Status Adenotonsillectomy Comple lazaro Cholecystectomy Completed Dilation and curettage Co mpleted Reduction of nasal turbinate Completed Surgery 1 Completed 1eye surgery Social History Social History Type Response Tobacco Never tobacco user T obacco Use:. Sex Patient Care team information Care Team Personnel Name: RUSSELL CORCORAN Position: No Access Member Role: Primary Care Physician Address: Address: [address] [place] [id number] [place] [address]
--- OUTSIDE RECORDS SUMMARY | 2024-09-18 15:28 | XMS_ITS | Encounter Summary ---
Author Organization [facility] [place] [address] Care Team Providers Care Receiving Checker Name Role Phone Yissel Guerra APRN Primary Care Provider [phone] Reason for Visit * Reason Onset Date Comments Appointment 12/13/2022 Encounter Details Date Type Department Care Team (Late st Contact Info) Description 12/13/2022 Telephone [place] [address] Nany Dobson Appointment Social History [...] AM EST LVM and sent letter via [facility] portal, please schedule from recall. documented in this encounter Plan of Treatment Upcoming Encounters Date Type Department Care Team (Late st Contact Info) Description 10/04/2024 3:30 PM EST Office Visit [place] [phone] Yamile Jesus MD [facility] [address] [place] [address] 12/12/2024 7:30 PM EST Procedure visit [facility] at [address] [place] [address] documented as of this encounter Visit Diagnoses Not on filedocumented in this encounter Care Teams Receiving Checker Relationship Specialty Start Date End Date Yissel Guerra APRN PCP - General Family Medicine 07/04/22 07/17/23 documented as of this encounter
--- OUTSIDE RECORDS SUMMARY | 2024-09-18 15:28 | XMS_ITS | Encounter Summary ---
[place] [address] Care Team Providers Care Fabrication Welder Name Role Phone Yissel Guerra APRN Primary Care Provider [phone] Reason for Referral * Consultation (Routine) - Closed Specialty Diagnoses / Procedures Referred By Darvin t Referred To Contact Weight and Wellness Diagnoses Obesity, unspecified classification, unspecified obesity type, unspecified whether serious comorbidity present Yissel Guerra APRN [address] [facility] [address] [place] [address] [facility] [address] [place] [address] Referral ID Status Reason Start Date Expiration Date V isits Requested Visits Authorized [id number] Closed Consult, Test & Treat PCP Updated and/or Approved 07/04/2022 07/04/2023 1 1 Encounter Details Date Type Department Care Team (Latest Contact Info) Description 07/04/2022 Transcribe Orders eDH Incoming Referrals [phone] Yissel Guerra APRN [address] [facility] [address] [place] [address] Obesity, unspecified classification, unspecified obesity type, unspecified [...] EST Office Visit [facility] and Wellness at [facility] [place] [address] Yamile Jesus MD [facility] [address] [facility] [address] 12/12/2024 7:30 PM EST Procedure visit Sleep Center at [facility] [address] [place] [address] Scheduled Referrals Name Type Priority Associated Diagnoses Orde r Schedule Referral to Weight & Wellness Center Outpatient Referral Routine Obesity, unspecified classification, unspecified obesity type, unspecified whether serious comorbidity present Ordered: 07/04/2022 documented as of this encounter Visit Diagnoses Diagnosis Obesity, unspecified classification, unspecified obesity type, unspecified whether serious comorbidity present documented in this encounter Care Teams Fabrication Welder Relationship Specialty Start Date End Date Yissel Guerra APRN PCP - General Family Medicine 07/04/22 07/17/23 documented as of this encounter
--- OUTSIDE RECORDS SUMMARY | 2024-09-18 15:28 | XMS_ITS | Encounter Summary ---
Author Organization [facility] Address [address] [place] [address] Care Team Providers Care Fabric Pattern Grader Name Role Phone Lukasz Sotelo MD Primary Care Provider [phone] Reason for Visit * Reason Comments Back Pain Encounter Details Date Type Department Care Team (Latest Contact Info) Description 11/10/2011 14:30 EST Office Visit [facility] Spine Program [place] [address] [place] [address] Jane Reyna PA-C Low back pain; Lumbar [...] may reflect changes made after this encounter. UNABLE TO FIND 20 Drops daily. Med Name: cellfood added in this encounter Care Teams Fabric Pattern Grader Relationship Specialty Start Date End Date Lukasz Sotelo MD [address] [place] [address] PCP - General 05/04/11 10/07/14 documented as of this encounter
--- OUTSIDE RECORDS SUMMARY | 2024-09-18 15:28 | XMS_ITS | Continuity of Care Document ---
Author Organization [facility] Ambulatory Clinics Address [address] [place] [address] Care Team Providers Care Seat Joiner Chainstitch Name Role Phone RUSSELL CORCORAN Primary Care Physician [phone] Encounter [facility] NBR [id number] Date(s): 05/22/23 - 05/22/23 [facility] Ambulatory Clinics [address] [place] [address] us Encounter Diagnosis Diarrhea(Discharge Diagnosis) - 05/22/23 Irregular bowel habits(Discharge Diagnosis) - 05/22/23 Pyrosis(Discharge Diagnosis) - 05/22/23 Decreased appetite(Discharge Diagnosis) - 05/22/23 Discharge Disposition: Home or Self Care Attending Physician: Afia Roman APRN Referring Physician: ODESSA BELL Allergies, Adverse Reactions, Alerts No Known Medication Allergies Functional Status 05/22/23 Other exposure to Infectious Disease Non e Medications buPROPion 300 mg/24 hours (XL) oral [...] turbinate Completed Surgery 1 Completed 1eye surgery Vital Signs Most recent to oldest [Reference Range]: 1 Temperature Temporal Artery [36-38 Deg C ] 36.5 Deg C (05/22/23 2:00 PM) Apical Heart Rate [60-100 bpm] 87 bpm (05/22/23 2:00 PM) Blood Pressure [90-140/60-90 mmHg] 142/8 2mmHg *HI* (05/22/23 2:00 PM) Weight 116.4 kg (05/22/23 2:00 PM) Weight Measured (lbs) 256.618 lb (05/22/23 2:00 PM) Social History Social History Type Response Tobacco Never tobacco user T obacco Use:. Sex Physician Outpatient Note * Afia Roman APRN W: PERFORM Event Display: Office Clinic Note Physician Authored Date: [id number] PPAI SCHILLING :1960 Age:62 years Sex:Female Visit Date:05/22/2023 Primary Care Physician: RUSSELL CORCORAN Chief Complaint Diarrhea History of Present Illness Patient is a 62-year-old female here today to request of Russell Arteaga,??JOSEPH-Donovan for diarrhea. ??Thisis an initial consult. ??She takes Kaopectate or Imodium??with partial relief.?? She states for thepast 2 years intermittently she has had??diarrhea??that??occurs once??every 1 to 2 weeks.?? She canalso have constipation since being on??Mounjaro??she can go 3 to 4 days without a bowel movement. ??She does not take anything for this.?? Since being on this medication as well she has had some nausea??and decreased appetite. ??She is also had pyrosis and dyspepsia which is new.?? She has lost approximately 30 pounds in the last 2 months of taking this.?? Denies any dysphagia or globus sensation.?? She does not take any??antacid medications as it does not occur frequently. ?? She reports having 2 cups of coffee and at least 1 energy drink per day.?? She describes a moderatefiber diet. ?? She has never had a colonoscopy. ?? She has had a cholecystectomy. ?? 03/13/2023??CBC showed a white blood cell count 11.61, hemoglobin 15.8, hematocrit 46.5. ?? She has chronic kidney disease. Review of Systems Pertinent positives and negatives are discussed in HPI. Physical Exam Vitals & Measurements T:??36.5?C ??(Temporal Artery)?? HR:??87??(Apical)?? BP:??142/82?? SpO2:??96%?? WT:??116.4??kg?? General: Well-nourished well-developed??female??in no acute distress. HEENT: Head is normocephalic, trachea midline, and no cervical lymphadenopathy. Respiratory: Respirations are even and unlabored. ??Lungs are clear to auscultation. Cardiovascular: Regular rate and rhythm with S1 and S2. Abdomen: Positive bowel sounds x4 quadrants, no masses, no guarding, no tenderness. ??No hepatosplenomegaly. ??Abdomen is soft. Skin: Warm, dry, and pink. Neurological: Alert and oriented x3, speech is clear and gait is steady. Psychological: Pleasant, calm and cooperative. Assessment/Plan 1.??Diarrhea??R19.7 Recommend colonoscopy to assess for colitis or neoplasm.?? Patient wants to think about this beforecommitting to scheduling her procedure. ??She will need GoLytely prep as she has chronic kidney disease.?? She understands the risk of??not having a colonoscopy??that can lead to undiagnosed??colitisor neoplasm??that could be caught in his early more treatable stages. 2.??Irregular bowel habits??R19.8 Recommend high-fiber diet??including insoluble fibers. 3.??Pyrosis??R12 Recommend Pepcid 20 mg daily. ??Discussed reflux triggering foods and beverages to avoid,??to avoideating 3 hours before bedtime and eat small frequent meals. 4.??Decreased appetite??R63.0 Likely anticipated side effect from her shower. Voice recognition software utilized which may result in minor school aide error. Problem List/Past Medical History Ongoing Abdominal discomfort Autism spectrum disorder Blind right eye CKD - chronic kidney disease Complication of anesthesia Decreased appetite Depression Diarrhea Diarrhea DM - Diabetes mellitus Essential hypertension Hypothyroidism Incontinence Insomnia Irregular bowel habits Lumbar radiculitis Nail dystrophy OA - Osteoarthritis of knee Obesity CIARA - Obstructive sleep apnea Overactive bladder Pessary PTSD - Post-traumatic stress disorder Pyrosis Sebaceous cyst Historical No qualifying data Procedure/Surgical History ???Adenotonsillectomy???Cholecystectomy???Dilation and curettage???Reduction of nasal turbinate???Surgery Medications buPROPion 300 mg/24 hours (XL) oral tablet, extended release, 300 mg= 1 tab, Oral, Daily busPIRone 5 mg oral tablet, 5 mg= 1 tab, Oral, TID FISH OIL CAP 1000MG levothyroxine 150 mcg (0.15 mg) oral tablet, 150 mcg= 1 tab, Oral, Daily lisinopril 20 mg oral tablet, 20 mg= 1 tab, Oral, Daily montelukast 10 mg oral tablet, 10 mg= 1 tab, Oral, Daily Mounjaro 10 mg/0.5 mL subcutaneous solution, 10 mg, Subcutaneous, every week Myrbetriq 50 mg oral tablet, extended release, 50 mg= 1 tab, Oral, Daily norethindrone 5 mg oral tablet, 5 mg= 1 tab, Oral, Daily vilazodone 20 mg oral tablet Vitamin D3 2000 intl units oral capsule, 50 mcg= 1 cap, Oral, Daily Allergies No Known Medication Allergies Social History Alcohol Never Electronic Cigarette/Vaping Electronic Cigarette Use: Never. Substance Use Never Tobacco Never tobacco user Tobacco Use:. Family History Alcohol abuse: Father. Alcohol user: Grandfather (P). Alzheimer's disease: Grandmother (P). Dementia: Grandmother (P). Depression: Father. Diabetes mellitus: Mother. Hypertension: Mother. Kidney disease: Mother. Stroke: Mother. Substance user: Father. Family Member(s): ?? FATHER, at age: Unknown. Cause of : Family Member(s): ?? MOTHER, at age: Unknown. Cause of : Family Member(s): ?? GPARENT, at age: Unknown. Cause of : Family Member(s): ?? GPARENT, at age: Unknown. Cause of : Family Member(s): ?? GPARENT, at age: Unknown. Cause of : Family Member(s): ?? GPARENT, at age: Unknown. Cause of : Electronically Signed on 05/22/23 02:34 PM Afia Roman APRN Patient Care team information Care Team Personnel Name: RUSSELL CORCORAN Position: No Access Member Role: Primary Care Physician Address: Address: [address] [place] [id number] [place] [address]
--- OUTSIDE RECORDS SUMMARY | 2024-09-18 15:28 | XMS_ITS | Encounter Summary ---
Author Organization [facility] Address [address] [place] [address] Care Team Providers Care Diet Aid Name Role Phone Yissel Guerra WIRELESS ENGINEER Primary Care Provider [phone] Unknown, Provider Primary Care Provider Unava ilable Encounter Details Date Type Department Care Team (Late st Contact Info) Description 03/13/2023 Lab Requisition [facility] Pathology & Laboratory Medicine - [facility] [address] [place], [place] [address] Outr Resulting Lab, Provider Social History Tobacco Use Types Packs/Day Years Used Date Smoking Tobacco: Never Assessed Comments Unknown Sex and Gender Information Value [...] C Antibody Negative Negative 03/14/2023 10:07 EDT [facility] Blood VENOUS BLOOD / Unknown 03/13/2023 14:42 EDT 03/13/2023 21:10 EDT us Provider Outr Resulting Lab CHEMISTRY & BLOOD GA S ORDERABLES Final Result Performing Organization Address City/[facility]/ZIP Co de Phone Number [facility] [address] [place] [address] * LYME AB (03/13/2023 14:42 EDT) Lyme Ab Negative Negative 03/14/2023 10:25 EDT [facility] Blood VENOUS BLOOD / Unknown 03/13/2023 14:42 EDT 03/13/2023 21:10 EDT us Provider Outr Resulting Lab IMMUNOLOGY AND SEROL OGY ORDERABLES Final Result Performing Organization Address [facility] de Phone Number [facility] [address] [place] [address] documented in this encounter Visit Diagnoses Not on filedocumented in this encounter Care Teams Diet Aid Relationship Specialty Start Date End Date Yissel Guerra NP PCP - General 03/23/21 07/22/23 Unknown, ProviderMD PCP - General 07/23/23 documented as of this encounter
--- OUTSIDE RECORDS SUMMARY | 2024-09-18 15:28 | XMS_ITS | Encounter Summary ---
Author Organization [facility] Address [address] [place] [address] Care Team Providers Care 4Th Grade Math Teacher Name Role Phone Ramona Meyers MARIANNE Primary Care Provider + Reason for Visit * Reason Onset Date Comments Results 12/04/2014 Results 12/19/2014 Encounter Details Date Type Department Care Team (Late st Contact Info) Description 12/04/2014 Telephone [facility] Interventional Pain [address] [place] [address] Florence Osuna, RN Results; Results Social History [...] the left side injected. Will forward to [facility] for scheduling left lumbar facet injection with [...] joint injections at right L4-L5 and L5-S1 Provider:Rosio/Carlos Hours of relief:12+ % of relief:100% relief [...] on filedocumented in this encounter Care Teams 4Th Grade Math Teacher Relationship Specialty Start Date End Date Ramona Meyers FNP PCP - General 10/08/14 03/22/21 documented as of this encounter
--- OUTSIDE RECORDS SUMMARY | 2024-09-18 15:28 | XMS_ITS | Encounter Summary ---
Author Organization [facility] Address [facility] [place] [address] Care Team Providers Care Applications Support Engineer Name Role Phone Hemanth Walton Primary Care Provider [phone] Encounter Details Date Type Department Care Team (Latest Contact Info) Description 07/04/2018 12:15 PM EDT - 07/04/2018 11:59 PM EDT Hospital Encounter XRay at [address] [address] Babatunde Mattson MD [facility] [place] [address] Spinal stenosis at L4-L5 level Discharge Disposition: [...] EST Office [place] [address] Yamile Jesus MD [facility] [address] [facility] [address] 12/12/2024 7:30 PM EST Procedure visit [facility] Center at [place] [address] [place] [address] documented as of this encounter Procedures Procedure [...] level documented in this encounter Care Teams Applications Support Engineer Relationship Specialty Start Date End Date Hemanth Walton DO [address] [place] [address] [place] [address] PCP - General Family Medicine 07/04/18 07/03/22 documented as of this encounter
--- OUTSIDE RECORDS SUMMARY | 2024-09-18 15:28 | XMS_ITS | Encounter Summary ---
Author Organization [facility] Address [address] [place] [address] Care Team Providers Care Sandwich Board Carrier Name Role Phone Lukasz Sotelo MD Primary Care Provider [phone] Reason for Visit * Reason Onset Date Comments Appointment Related 03/06/2012 Encounter Details Date Type Department Care Team (Late st Contact Info) Description 03/06/2012 Telephone [facility] Interventional Pain [address] [place], [place] [id number] Johana Gonzalez MD Appointment Related Social History [...] on filedocumented in this encounter Care Teams Sandwich Board Carrier Relationship Specialty Start Date End Date Lukasz Sotelo MD [address] [place] [address] PCP - General 05/04/11 10/07/14 documented as of this encounter
--- OUTSIDE RECORDS SUMMARY | 2024-09-18 15:28 | XMS_ITS | Encounter Summary ---
Author Organization [facility] Address [address] [place] [address] Care Team Providers Care Program Therapist Name Role Phone Ramona Meyers DIGITAL PRODUCT SPECIALIST Primary Care Provider + Reason for Visit * Reason Comments Back Pain low back pain Encounter Details Date Type Department Care Team (Latest Contact Info) Description 10/08/2014 15:00 EST Office Visit [facility] Interventional Pain [address] [place] [address] Isabell Andersen, JOSEPH [address] [place] [address] Spondylolisthesis (Primary Dx); DJD (degenerative [...] * Isabell Andersen - 10/09/2014 1246 EST [facility] OP PAIN Follow Up [...] TFESI-- patient is unable to recall results 08/18/11: Left L5-S1 TFESI-- 1 [...] laser surgery is not offered her in [place] and is not covered by insurance at [...] with speech recognition software or keyboard data technical lead techniques. Minor irregularities or keyboarding misprints may [...] state documented in this encounter Care Teams Program Therapist Relationship Specialty Start Date End Date Ramona Meyers FNP PCP - General 10/08/14 03/22/21 documented as of this encounter
--- OUTSIDE RECORDS SUMMARY | 2024-09-18 15:28 | XMS_ITS | Encounter Summary ---
Author Organization [facility] Address [address] [place] [address] Care Team Providers Care Pest Control Specialist Name Role Phone Yissel Guerra NP Primary Care Provider [phone] Unknown, Provider Primary Care Provider Unava ilable Encounter Details Date Type Department Care Team (Late st Contact Info) Description 12/01/2021 Lab Requisition [facility] Pathology & Laboratory Medicine - [facility] [address] [place] [address] Erendira Ling MD [address] [place] [address] [address] [place], [place] [address] Encounter for other general examination Social History [...] explore management options, if applicable. 12/06/2021 9:19 [facility] Final Diagnosis A. CERVIX, POLYP, BIOPSY: - Benign endocervical polyp. B. ENDOMETRIUM, BIOPSY: - Disordered proliferative endometrium. See Comment. 12/06/2021 9:19 [facility] Diagnosis Comment This pattern may be associated with poorly opposed estrogens in the post-menopausal setting. 12/06/2021 9:19 [facility] Attestation There was significant resident/fellow involvement in the diagnostic evaluation of this case. By the signature below, the attending physician certifies that they have personally conducted a gross and/or microscopic examination of the described specimens and rendered or confirmed the above diagnosis. 12/06/2021 9:19 [facility] at 0919 Clinical History Thickened endometrium 12/06/2021 9:19 [facility] Gross Description A. [...] B1. JOSEPH STEPHENSON(ASCP) 12/02/2021 9:23 12/06/2021 9:19 [facility] Resident/Jose w: [place] Bauer MD 12/06/2021 9:19 [facility] Performing Lab [facility] 12/06/2021 9:19 [facility] Scanned Images 12/06/2021 9:19 [facility] Tissue ENTIRE ENDOMETRIUM / Unknown 12/01/2021 9:04 EST 12/01/2021 23:05 EST Tissue specimen (specimen) ENDOMETRIAL STRUCTURE / Unknown 12/01/2021 9:04 EST 12/01/2021 23:05 EST us Erendira Ling MD PATHOLOGY ORDERABLES Final Res ult [facility] [address] [place] [address] documented in this encounter Visit Diagnoses Diagnosis Encounter for other general examination documented in this encounter Care Teams Pest Control Specialist Relationship Specialty Start Date End Date Yissel Guerra NP PCP - General 03/23/21 07/22/23 Unknown, Provider, PCP - General 07/23/23 documented as of this encounter
--- OUTSIDE RECORDS SUMMARY | 2024-09-18 15:28 | XMS_ITS | Continuity of Care Document ---
Author Organization [facility] Address [address] [place] [address] Care Team Providers Care Social Work Administrator Name Role Phone ODESSA BELL Primary Care Physician Encounter [facility] NBR [id number] Date(s): 05/01/23 - 05/01/23 [facility] [address] [place] [address]- us Assessment and Plan Future Appointments Patient Care team information Care Team Personnel Name: ODESSA BELL Position: No Access Member Role: Primary Care Physician Address: Address: [address] [place] [address] [address] [place], [place] [address]
--- OUTSIDE RECORDS SUMMARY | 2024-09-18 15:28 | XMS_ITS | Encounter Summary ---
Author Organization [facility] [place] [address] Care Team Providers Care Activities Director Scouting Name Role Phone Suki Salas MD Primary Care Provider [phone] Encounter Details Date Type Department Care Team (Latest Contact Info) Description 12/22/2017 - 12/22/2017 11:59 PM EST Hospital Encounter Radiology Library at [facility] [place] [address] Marcelino Gunderson MD [facility] [place] [address] Discharge Disposition: Home Social History Tobacco Use [...] EST Office Visit [place] [phone] Yamile Jesus MD [facility] [address] [place] [address] 12/12/2024 7:30 PM EST Procedure visit Sleep Center at [facility] [address] [place] [phone] documented as of this encounter Procedures Procedure Name Priority Date/Time Associated Diagnosis Comments FILM LIBRARY STORAGE ONLY MR SPINE Routine 12/22/2017 12:00 AM EST documented in this encounter Results * Film Library- Storage Only MR Spine (12/22/2017 12:00 AM EST) Narrative [facility] - 06/07/2018 12:20 PM EDT This exam is for storage only and is auto-finalizing. Marcelino Gunderson MD IMG FILM LIBRARY ORD ERABLES [place], [place] documented in this encounter Visit Diagnoses Not on filedocumented in this encounter Care Teams Activities Director Scouting Relationship Specialty Start Date End Date Suki Salas MD [address] [place] [place] [address] PCP - General General Internal Medicine 11/01/1706/23 documented as of this encounter
--- OUTSIDE RECORDS SUMMARY | 2024-09-18 15:28 | XMS_ITS | Encounter Summary ---
[place] [address] Care Team Providers Care Truck Railroad And Bus Motor Mechanic Name Role Phone Yissel Guerra APRN Primary Care Provider [phone] Reason for Referral * Consultation (Routine) - Closed Specialty Diagnoses / Procedures Referred By Darvin segovia Referred To Contact General Surgery Diagnoses Class 3 severe obesity with serious comorbidity and body mass index (BMI) of 50.0 to 59.9 in adult, unspecified obesity type Yamile Jesus MD [facility] [place] [address] [facility] [address] [place] [address] Referral ID Status Reason Start Date Expiration Date V isits Requested Visits Authorized [id number] Closed Consult, Test & Treat 12/03/2022 12/03/2023 1 1 Encounter Details Date Type Department Care Team (Late st Contact Info) Description 11/28/2022 3:30 PM EST TH Visit (TeleHealth) [facility] [place] [address] Yamile Jesus MD [facility] [place] [address] Class 3 severe obesity with serious comorbidity and body mass index (BMI) of 50.0 to 59.9 in adult, unspecified obesity type; Hypertension, unspecified type; Type 2 diabetes mellitus without complication, unspecified whether correction insulin use; Mixed anxiety and depressive disorder; [...] this video visit, pt is located at: [facility] [place] Patient Name: Jes Bello Date of : 1960 Age: 62 y.o. Referring provider: No ref. provider found Dear Yissel Guerra APRN, No ref. provider found Thank you for referring Jes Bello to the [facility]. Jes Bello presented to the [facility] for a consultative visit regarding obesity management. [...] female with uncontrolled obesity who presented to [facility] today for medicalevaluation with associated co-morbidities as [...] 2 No flowsheet data found. Sleep: Circadian: []scene shifter work []irregular sleep timings [x]Normal day/night schedule [...] data found. Daily Routine - has a urology teacher in [facility] [employer] [facility] - Mediterranean diet Time to Bed? 11 [...] found for: FERRITIN No results found for: SVMZOOSY46 No results found for: 25OHVITD INITIAL EVALUATION: [...] mellitus without complication, unspecified whether termite control service representative insulin use Mixed anxiety and depressive disorder Hypothyroidism, unspecified type No orders of the defined types were placed in this encounter. Return in about 8 weeks (around 01/23/2023) for In person or Zoom, With me. I spent a total of 45 minutes in [id number] discussion/counseling regarding the diagnosis of obesity, interventions for treatment, and obesity related co- morbidities as well as documentation of visit and chart review, including notes, labs, and other evaluations as reviewed below. Goals Addressed None Care pathway: Pathway: No flowsheet data found. I spoke with Jes about opportunities to participate in research and to be contacted by our research assistant designer. They indicated that they are: [] INTERESTED [] NOT INTERESTED // [x] NOT ADDRESSED [facility] Initial Responses 07/04/2018 PROMIS 10 Physical Scores [...] EST Office Visit [facility] [place] [address] Yamile Jesus MD [facility] [address] [place] [address] 12/12/2024 7:30 PM EST Procedure visit Sleep Center at [facility] [address] [place] [address] Scheduled Referrals Name Type Priority Associated Diagnoses [...] mellitus without complication, unspecified whether termite control service representative insulin use Mixed anxiety and depressive disorder Dysthymic disorder Hypothyroidism, unspecified type CIARA (obstructive sleep apnea) Obstructive sleep apnea (adult) (pediatric) documented in this encounter Care Teams Truck Railroad And Bus Motor Mechanic Relationship Specialty Start Date End Date Yissel Guerra APRN PCP - General Family Medicine 07/04/22 07/17/23 documented as of this encounter
--- OUTSIDE RECORDS SUMMARY | 2024-09-18 15:28 | XMS_ITS | Encounter Summary ---
[place] [address] Care Team Providers Care Ware Server Name Role Phone Yissel Guerra APRN Primary Care Provider [phone] Encounter Details Date Type Department Care Team [...] EST Office Visit [place] [address] Yamile Jesus MD [facility] [address] [facility] [address] 12/12/2024 7:30 PM EST Procedure visit Sleep Center at [facility] [address] [place] [address] documented as of this encounter Visit Diagnoses Not on filedocumented in this encounter Care Teams Ware Server Relationship Specialty Start Date End Date Yissel Guerra APRN PCP - General Family Medicine 07/04/22 07/17/23 documented as of this encounter
--- OUTSIDE RECORDS SUMMARY | 2024-09-18 15:28 | XMS_ITS | Encounter Summary ---
Author Organization [facility] Address [address] [place] [address] Care Team Providers Care Manager Acquisition Name Role Phone Yissel Guerra LINUX ADMINISTRATOR Primary Care Provider [phone] Unknown, Provider Primary Care Provider Unava ilable Encounter Details Date Type Department Care Team (Late st Contact Info) Description 03/13/2023 Lab Requisition [facility] Pathology & Laboratory Medicine - [facility] [address] [place], [place] [address] Outr Resulting Lab, Provider Social History Tobacco [...] 4th Generation Negative Negative 03/14/2023 9:53 EDT [facility] Comment:If acute HIV-1 infec tion is suspected in a high risk patient, submit plasma specimen for HIV-1 RNA quantitation test. Blood VENOUS BLOOD / Unknown 03/13/2023 14:42 EDT 03/13/2023 21:10 EDT Narrative [facility] - 03/14/2023 9:53 EDT Fourth Generation assay performed on the [employer] XPT. us Provider Outr Resulting Lab IMMUNOLOGY AND SEROL OGY ORDERABLES Final Result [facility] [address] [place] [address] documented in this encounter Visit Diagnoses Not on filedocumented in this encounter Care Teams Manager Acquisition Relationship Specialty Start Date End Date Yissel Guerra NP PCP - General 03/23/21 07/22/23 Unknown, Provider, PCP - General 07/23/23 documented as of this encounter
--- OUTSIDE RECORDS SUMMARY | 2024-09-18 15:28 | XMS_ITS | Encounter Summary ---
[place] [address] Care Team Providers Care Mechanical Test Technician Name Role Phone Yissel Guerra APRN Primary Care Provider Encounter Details Date Type Department Care Team (Late st Contact Info) Description 11/25/2022 External Results [place] [address] Shelia Roberson, RN Social History Tobacco Use [...] EST Office Visit [place] [address] Yamile Jesus MD [facility] [address] [place] [address] 12/12/2024 7:30 PM EST Procedure visit Sleep Center at [facility] [address] [place] [address] documented as of this encounter Procedures Procedure Name Priority Date/Time Associated Diagnosis Comments [facility] EXTERNAL LABS 2 Routine 10/12/2022 documented in this encounter Results * (ABNORMAL) [facility] Labs 2 - External (10/12/2022) Cholesterol, Total [...] Historical Provider MD EXTERNAL LAB ERASMO AVILEZ documented in this encounter Visit Diagnoses Not on filedocumented in this encounter Care Teams Mechanical Test Technician Relationship Specialty Start Date End Date Yissel Guerra, TRAIN DRIVER PCP - General Family Medicine 07/04/22 07/17/23 documented as of this encounter
--- OUTSIDE RECORDS SUMMARY | 2024-09-18 15:28 | XMS_ITS | Encounter Summary ---
Author Organization [facility] Address [address] [place] [address] Care Team Providers Care Home Based Assistant Name Role Phone Lukasz Sotelo MD Primary Care Provider [phone] Reason for Visit * Reason Onset Date Comments Advice Only 01/10/2013 Encounter Details Date Type Department Care Team (Late st Contact Info) Description 01/10/2013 Telephone [facility] Foot & Ankle Program - [address] [place], [place] [phone] Tara Owens [address] [place] [address] Advice Only Social History Tobacco Use Types [...] She ask me to call Jane PT. [phone] and advise her of this. Tara Owens 01/10/2013 15:42 documented in this encounter Plan of Treatment Not on file documented as of this encounter Visit Diagnoses Not on filedocumented in this encounter Care Teams Home Based Assistant Relationship Specialty Start Date End Date Lukasz Sotelo MD [address] [place] [address] PCP - General 05/04/11 10/07/14 documented as of this encounter
--- OUTSIDE RECORDS SUMMARY | 2024-09-18 15:28 | XMS_ITS | Encounter Summary ---
Author Organization [facility] Address [address] [place] [address] Care Team Providers Care Astronaut Mission Specialist Name Role Phone Unknown, Provider MD Primary Care Provider Unava ilable Encounter Details Date Type Department Care Team (Late st Contact Info) Description 08/20/2024 Lab Requisition [facility] Pathology & Laboratory Medicine - [facility] [address] [place], [place] [address] Outr Resulting Lab, Provider Social History Tobacco [...] Comments T3, TOTAL Routine 08/20/2024 14:19 EDT documented in this encounter Results * T3, TOTAL (08/20/2024 14:19 EDT) T3, Total 140 97 - 169 ng/dL 08/20/2024 22:30 EDT [facility] Blood VENOUS BLOOD / Unknown 08/20/2024 14:19 EDT 08/20/2024 21:38 EDT us Provider Outr Resulting Lab CHEMISTRY & BLOOD GA S ORDERABLES Final Result [facility] [address] [place] [address] documented in this encounter Visit Diagnoses Not on filedocumented in this encounter Care Teams Astronaut Mission Specialist Relationship Specialty Start Date End Date Unknown, Provider, PCP - General 07/23/23 documented as of this encounter
--- OUTSIDE RECORDS SUMMARY | 2024-09-18 15:28 | XMS_ITS | Encounter Summary ---
Author Organization [facility] Address [address] [place] [address] Care Team Providers Care Air Export Coordinator Name Role Phone Ramona Meyers POST PRODUCTION ASSISTANT Primary Care Provider + Reason for Visit * Reason Comments Back Pain low back pain Leg Pain left leg pain Encounter Details Date Type Department Care Team (Late st Contact Info) Description 12/03/2014 11:00 EST Office Visit [facility] Interventional Pain [address] [place] [address] Johana Gonzalez MD Rosio, MD Manda [address] [place] [phone] DJD (degenerative joint disease), lumbar (Primary Dx); [...] 12/03/2014 11:36 EST [facility] [place] [id number] Patient Instructions You have had your bilateral [...] * Dai Stephenson - 12/03/2014 1123 EST [facility] Rooming Note Does patient have a Rn Examiner? yes Is patient NPO? (Solids since midnight [...] Bello : 1960 Date of Service: 12/03/2014 Fuel Injection Servicer: Johana Gonzalez MD Janitor Supervisor: Yohannes Avelar MD Interval History: Ms. Bello [...] may reflect changes made after this encounter. ASCORBIC ACID/VITAMIN E (CRANBERRY CONCENTRATE ORAL) Take by mouth Multivitamins with Minerals tablet Take 1 Tab by mouth daily added in this encounter Care Teams Air Export Coordinator Relationship Specialty Start Date End Date Ramoan Meyers FNP PCP - General 10/08/14 03/22/21 documented as of this encounter
--- OUTSIDE RECORDS SUMMARY | 2024-09-18 15:28 | XMS_ITS | Encounter Summary ---
[place] [address] Care Team Providers Care Multi Spindle Operator Name Role Phone Yissel Guerra APRN Primary Care Provider [phone] Reason for Visit * Reason Onset Date Comments Questions 12/20/2022 Encounter Details Date Type Department Care Team (Late Contact Info) Description 12/20/2022 Telephone [place] [address] Nany Dobson Questions Social History [...] Department Care Team (Late Contact Info) Description 10/04/2024 3:30 PM EST Office Visit [place] [address] Yamile Jesus MD [facility] [address] [facility] [place] [address] 12/12/2024 7:30 PM EST Procedure visit Sleep Center at [place] [address] [place] [address] documented as of this encounter Visit Diagnoses Not on filedocumented in this encounter Care Teams Multi Spindle Operator Relationship Specialty Start Date End Date Yissel Guerra APRN PCP - General Family Medicine 07/04/22 07/17/23 documented as of this encounter
--- OUTSIDE RECORDS SUMMARY | 2024-09-18 15:29 | XMS_ITS | Encounter Summary ---
Author Organization [facility] Address [address] [place] [address] Care Team Providers Care Occupational Health Physician Name Role Phone Lukasz Sotelo MD Primary Care Provider [phone] Reason for Visit * Reason Onset Date Comments Appointment Related 09/29/2011 Encounter Details Date Type Department Care Team (Late st Contact Info) Description 09/29/2011 Telephone [facility] Spine Program - [place] [address] Jane Reyna PA-C Appointment Related Social History [...] on filedocumented in this encounter Care Teams Occupational Health Physician Relationship Specialty Start Date End Date Lukasz Sotelo MD [address] [place] [address] PCP - General 05/04/11 10/07/14 documented as of this encounter
--- OUTSIDE RECORDS SUMMARY | 2024-09-18 15:29 | XMS_ITS | Encounter Summary ---
Author Organization [facility] Address [address] [place] [address] Care Team Providers Care Garbage Depot Worker Name Role Phone Lukasz Sotelo MD Primary Care Provider [phone] Reason for Visit * Reason Onset Date Comments Back Pain 08/31/2011 Encounter Details Date Type Department Care Team (Late st Contact Info) Description 08/31/2011 Telephone [facility] Spine Program - [address] [place], [place] [phone] Jane Reyna PA-C Back Pain Social History [...] on filedocumented in this encounter Care Teams Garbage Depot Worker Relationship Specialty Start Date End Date Lukasz Sotelo MD [address] [place] [address] PCP - General 05/04/11 10/07/14 documented as of this encounter
--- OUTSIDE RECORDS SUMMARY | 2024-09-18 15:29 | XMS_ITS | Encounter Summary ---
Author Organization [facility] Address [address] [place] [address] Care Team Providers Care Circular Saw Filer Name Role Phone Lukasz Sotelo MD Primary Care Provider [phone] Encounter Details Date Type Department Care Team (Late st Contact Info) Description 06/14/2011 Abstract [facility] Spine Program - [address] [place], [place] [phone] Lukasz Sotelo MD [address] [place] [address] Social History Tobacco Use Types [...] may reflect changes made after this encounter. cyclobenzaprine (FLEXERIL) 10 mg tablet Take 10 mg by mouth 3 times daily as needed. added in this encounter Care Teams Circular Saw Filer Relationship Specialty Start Date End Date Lukasz Sotelo MD [address] [place] [address] PCP - General 05/04/11 10/07/14 documented as of this encounter
--- OUTSIDE RECORDS SUMMARY | 2024-09-18 15:29 | XMS_ITS | Encounter Summary ---
Author Organization [facility] Address [address] [place] [address] Care Team Providers Care Sleep Medicine Physician Name Role Phone Lukasz Sotelo MD Primary Care Provider [phone] Reason for Visit * Reason Onset Date Comments Results 07/01/2011 BILATERAL lUMBAR fACET Encounter Details Date Type Department Care Team (Late st Contact Info) Description 07/01/2011 Telephone [facility] Interventional Pain [address] [place] [address] Yamile Armas RN Results (BILATERAL lUMBAR fACET [...] on filedocumented in this encounter Care Teams Sleep Medicine Physician Relationship Specialty Start Date End Date Lukasz Sotelo MD [address] [place] [address] PCP - General 05/04/11 10/07/14 documented as of this encounter
--- OUTSIDE RECORDS SUMMARY | 2024-09-18 15:29 | XMS_ITS | Encounter Summary ---
Author Organization [facility] Address [address] [place] [address] Care Team Providers Care Assistant Store Manager Operations Name Role Phone Lukasz Sotelo MD Primary Care Provider [phone] Reason for Referral * Consult (Routine) - Closed Specialty Diagnoses / Procedures Referred By Darvin segovia Referred To Contact Pain Medicine Diagnoses Low back pain Jane Reyna PA-C [facility] Interventional Pain [address] [place] [address] Phone: tel: fax: Referral ID Status Reason Start Date Expiration Date V isits Requested Visits Authorized [id number] Closed Specialty Services Required 06/07/2011 1 1 Question Answer Reason for Request: L4-5, L5-S1 facet joint injections Reason for Visit * Reason Comments Back Pain Encounter Details Date Type Department Care Team (Latest Contact Info) Description 06/07/2011 10:00 EDT Office Visit [facility] - [address] [place] [address] Jane Reyna PA-C Low back [...] above interpretation and agree with the findings. us Jane Reyna PA-C [facility] DIAGNOSTIC IMAGING ORD ERABLES Final Result documented in this encounter Visit Diagnoses Diagnosis Low back pain Lumbago Lumbar radiculopathy Thoracic or lumbosacral neuritis or radiculitis, unspecified documented in this encounter Historical Medications * This list may reflect changes made after this encounter. VITAMIN B COMPLEX (B COMPLEX 50 ORAL) Take by mouth. METHYLSULFONYLMETH ANE ORAL Take by mouth. PRASTERONE, DHEA, (DHEA [...] 06/07/2011 added in this encounter Care Teams Assistant Store Manager Operations Relationship Specialty Start Date End Date Lukasz Sotelo MD [address] [place] [address] PCP - General 05/04/11 10/07/14 documented as of this encounter
--- OUTSIDE RECORDS SUMMARY | 2024-09-18 15:29 | XMS_ITS | Encounter Summary ---
Author Organization [facility] Address [address] [place] [address] Care Team Providers Care Cocoa Powder Mixer Operator Name Role Phone Lukasz Sotelo MD Primary Care Provider [phone] Reason for Visit * Reason Onset Date Comments Follow-up 08/30/2011 Encounter Details Date Type Department Care Team (Late st Contact Info) Description 08/30/2011 Telephone [facility] Spine Program - [address] [place], [place] [phone] Jane Reyna PA-C Follow-up Social History Tobacco [...] on filedocumented in this encounter Care Teams Cocoa Powder Mixer Operator Relationship Specialty Start Date End Date Lukasz Sotelo MD [address] [place] [address] PCP - General 05/04/11 10/07/14 documented as of this encounter
--- OUTSIDE RECORDS SUMMARY | 2024-09-18 15:29 | XMS_ITS | Encounter Summary ---
Author Organization [facility] Address [address] [place] [address] Care Team Providers Care Treatment Counselor Name Role Phone Lukasz Sotelo MD Primary Care Provider [phone] Reason for Referral * Consult (Routine) - Closed Specialty Diagnoses / Procedures Referred By Contkayla segovia Referred To Contact Pain Medicine Diagnoses Low back pain Lumbar radiculopathy Jane Reyna PA-Donovan [facility] Interventional Pain [address] [place] [address] Phone: tel: fax: Referral ID Status Reason Start Date Expiration Date V isits Requested Visits Authorized [id number] Closed Specialty Services Required 09/02/2011 1 1 Question Answer Reason for Request: left S1 TFESI Reason for Visit * Reason Onset Date Comments Follow-up 09/02/2011 Encounter Details Date Type Department Care Team (Late st Contact Info) Description 09/02/2011 Telephone [facility] Spine Program - [address] [place] [address] Jane Reyna PA-C Follow-up Social [...] 3:00pm works best for her. Please call [phone]. documented in this encounter Plan of Treatment Scheduled Referrals Name Type Priority Associated Diagnoses Orde r Schedule [facility]B CONSULT PAIN CLINIC Outpatient Referral Routine Low back pain Lumbar radiculopathy Ordered: 09/02/2011 documented as of this encounter Visit Diagnoses Diagnosis Low back pain Lumbago Lumbar radiculopathy Thoracic or lumbosacral neuritis or radiculitis, unspecified documented in this encounter Care Teams Treatment Counselor Relationship Specialty Start Date End Date Lukasz Sotelo MD [address] [place] [address] PCP - General 05/04/11 10/07/14 documented as of this encounter
--- OUTSIDE RECORDS SUMMARY | 2024-09-18 15:29 | XMS_ITS | Encounter Summary ---
Author Organization [facility] Address [address] [place] [address] Care Team Providers Care Alto Singer Name Role Phone Lukasz Sotelo MD Primary Care Provider [phone] Encounter Details Date Type Department Care Team ([facility] st Contact Info) Description 05/06/2011 Results Only Imaging [facility] Spine Program - [address] [place], [place] [phone] Jane Reyna PA-C Social History Tobacco Use Types Packs/Day Years [...] on filedocumented in this encounter Care Teams Alto Singer Relationship Specialty Start Date End Date Lukasz Sotelo MD [address] [place], [place] [address] PCP - General 05/04/11 10/07/14 documented as of this encounter
--- OUTSIDE RECORDS SUMMARY | 2024-09-18 15:29 | XMS_ITS | Encounter Summary ---
Author Organization [facility] Address [address] [place] [address] Care Team Providers Care Channel Marketing Manager Name Role Phone Lukasz Sotelo MD Primary Care Provider [phone] Reason for Visit * Reason Comments Leg Pain left leg pain Encounter Details Date Type Department Care Team (Latest Contact Info) Description 08/18/2011 14:30 EDT Office Visit [facility] Interventional Pain [address] [place] [address] Johana Gonzalez MD Low back pain; Lumbar [...] Keyla Osuna RN - 08/18/2011 15:16 EDT [facility] [address] [address] Patient Instructions You have had your left [...] Bello : 1960 Date of Service: 08/18/2011 Chemical Process Analyst: Johana Gonzalez MD Ppap Coordinator: none Procedure: Transforaminal epidural steroid injection at [...] * Dai Stephenson - 08/18/2011 1448 EDT [facility] Rooming Note Does patient have a Dockworker? Peter will pick patient up Is patient [...] encounter Miscellaneous Notes * Scanned Note-Null - Mine Engineering Manager, Scan - 08/19/2011 1127 EDT documented in [...] myelopathy documented in this encounter Care Teams Channel Marketing Manager Relationship Specialty Start Date End Date Lukasz Sotelo MD [address] [place] [address] PCP - General 05/04/11 10/07/14 documented as of this encounter
--- OUTSIDE RECORDS SUMMARY | 2024-09-18 15:29 | XMS_ITS | Encounter Summary ---
Author Organization [facility] Address [address] [place] [address] Care Team Providers Care Health Coach Name Role Phone Lukasz Sotelo MD Primary Care Provider [phone] Reason for Visit * Reason Onset Date Comments Results 08/22/2011 Encounter Details Date Type Department Care Team (Late st Contact Info) Description 08/22/2011 Telephone [facility] Interventional Pain [address] [place], [place] [phone] Johana Gonzalez MD Results Social History Tobacco [...] Encounter - Florence Osuna RN - 08/22/2011 8191 EDT RN returned.call to patient. Patient c/o [...] any other concerns. * Telephone Encounter - Azeb Spears - 08/22/2011 1236 EDT Patient is calling [...] on filedocumented in this encounter Care Teams Health Coach Relationship Specialty Start Date End Date Lukasz Sotelo MD [address] [place] [address] PCP - General 05/04/11 10/07/14 documented as of this encounter
--- OUTSIDE RECORDS SUMMARY | 2024-09-18 15:29 | XMS_ITS | Encounter Summary ---
Author Organization [facility] Address [address] [place] [address] Care Team Providers Care Crate Builder Name Role Phone Lukasz Sotelo MD Primary Care Provider [phone] Reason for Visit * Reason Onset Date Comments Back Pain 09/09/2011 Encounter Details Date Type Department Care Team (Late st Contact Info) Description 09/09/2011 Telephone [facility] Spine Program [place] [address] Jane Reyna PA-C Back Pain Social History [...] Encounter - Jane Jules PA - 09/09/2011 1051 EST Jes had an episode of pain [...] on filedocumented in this encounter Care Teams Crate Builder Relationship Specialty Start Date End Date Lukasz Sotelo MD [address] [place] [address] PCP - General 05/04/11 10/07/14 documented as of this encounter
--- OUTSIDE RECORDS SUMMARY | 2024-09-18 15:29 | XMS_ITS | Encounter Summary ---
Author Organization [facility] Address [address] [place] [address] Care Team Providers Care Certified Retinal Angiographer Name Role Phone Lukasz Sotleo MD Primary Care Provider [phone] Reason for Referral * Consult (Routine) - Closed Specialty Diagnoses / Procedures Referred By Darvin segovia Referred To Contact Pain Medicine Diagnoses Low back pain Lumbar radiculopathy Jane Reyna PA-C [facility] Interventional Pain [address] [place] [address] Phone: tel: fax: Referral ID Status Reason Start Date Expiration Date V isits Requested Visits Authorized [id number] Closed Specialty Services Required 07/14/2011 1 1 Question Answer Reason for Request: Left L5-S1 TFESI Reason for Visit * Reason Comments Back Pain Injection Follow-up Encounter Details Date Type Department Care Team (Latest Contact Info) Description 07/14/2011 13:30 EDT Office Visit [facility] Spine Program - [address] [place] [address] Jane Reyna PA-C Low back [...] unspecified documented in this encounter Care Teams Certified Retinal Angiographer Relationship Specialty Start Date End Date Lukasz Sotelo MD [address] [place] [address] PCP - General 05/04/11 10/07/14 documented as of this encounter
--- OUTSIDE RECORDS SUMMARY | 2024-09-18 15:29 | XMS_ITS | Encounter Summary ---
Author Organization [facility] Address [address] [place] [address] Care Team Providers Care Plastics Fabricator And Assembler Name Role Phone Lukasz Sotelo MD Primary Care Provider [phone] Reason for Visit * Reason Onset Date Comments Appointment Related 09/05/2011 Encounter Details Date Type Department Care Team ([facility] st Contact Info) Description 09/05/2011 Telephone [facility] Spine Program - [address] [place], [place] [phone] Jane Reyna PA-C Appointment Related Social History [...] on filedocumented in this encounter Care Teams Plastics Fabricator And Assembler Relationship Specialty Start Date End Date Lukasz Sotelo MD NPI: [id number] [place] [address] PCP - General 05/04/11 10/07/14 documented as of this encounter
--- OUTSIDE RECORDS SUMMARY | 2024-09-18 15:29 | XMS_ITS | Encounter Summary ---
Author Organization [facility] Address [address] [place] [address] Care Team Providers Care Coroner Transport Technician Name Role Phone Lukasz Sotelo MD Primary Care Provider [phone] Reason for Visit * Reason Onset Date Comments Results 07/12/2011 Encounter Details Date Type Department Care Team (Late st Contact Info) Description 07/12/2011 Telephone [facility] Interventional Pain [address] [place] [address] [place] [address] [place] [address] Results Social History Tobacco Use [...] for 2 hours. * Telephone Encounter - Azeb Spears - 07/12/2011 1413 EDT Patient is calling [...] on filedocumented in this encounter Care Teams Coroner Transport Technician Relationship Specialty Start Date End Date Lukasz Sotelo MD [address] [place] [address] PCP - General 05/04/11 10/07/14 documented as of this encounter
--- OUTSIDE RECORDS SUMMARY | 2024-09-18 15:29 | XMS_ITS | Encounter Summary ---
Author Organization [facility] Address [address] [place] [address] Care Team Providers Care Police Academy Instructor Name Role Phone Lukasz Sotelo MD Primary Care Provider [phone] Reason for Visit * Reason Comments Pain every where Pain Leg Pain left leg pain Encounter Details Date Type Department Care Team (Late st Contact Info) Description 07/01/2011 15:15 EDT Office Visit [facility] Interventional Pain [address] [place], [place] [phone] Unknown, Provider, Johana Curtis MD Brown, Michael B., DO [address] [place], [place] [phone] Low back pain; Lumbar facet arthropathy; Degeneration [...] Yamile Armas RN - 07/01/2011 16:02 EDT [facility] [address] [address] Patient Instructions You have had your bilateral [...] Bello : 1960 Date of Service: 07/01/2011 Curriculum Counselor: Johana Gonzalez MD Extension Division Director: Jamar King DO Procedure: Lumbar facet joint [...] * Dai Stephenson - 07/01/2011 1457 EDT [facility] Rooming Note Does patient have a Vacuum Extractor Operator? yes Is patient NPO? (Solids since midnight [...] Miscellaneous Notes * Scanned Note-Null - Boom, Elder Counselor - 07/19/2011 1427 EDT documented in this encounter Plan of Treatment Not on file documented as of this encounter Visit Diagnoses Diagnosis Low back pain Lumbago Lumbar facet arthropathy Lumbosacral spondylosis without myelopathy Degeneration of lumbar or lumbosacral intervertebral disc Obesity Obesity, unspecified Acquired spondylolisthesis documented in this encounter Care Teams Police Academy Instructor Relationship Specialty Start Date End Date Lukasz Sotelo MD [address] [place] [address] PCP - General 05/04/11 10/07/14 documented as of this encounter
[2024-09-18 18:00] LABS: Lithium 0.5 mmol/L (0.6-1.2)
== END 2024-09-18 15:18 | disposition home or self-care (01) ==
LOC: LBO 15:18
PROVIDERS: PCP Nurse Practitioner Adult Health; Visit Provider Psychiatry & Neurology Psychiatry
DX: Z79.899 Other long term (current) drug therapy (principal); F60.9 Personality disorder, unspecified; F84.0 Autistic disorder
CPT/HCPCS: 36415; 82306; 84520; 80178; 82565; 82607

== ENCOUNTER → 2024-10-30 15:29 | Outpatient (BNVA) | payer MEDICARE, MEDICAID, SELFPAY | PROVIDERS: PCP Nurse Practitioner Adult Health; Referring Provider Nurse Practitioner Adult Health; Visit Provider Nurse Practitioner Gerontology | DX: N39.41 Urge incontinence (principal); N32.81 Overactive bladder | CPT/HCPCS: 98012 ==

== ENCOUNTER 2024-11-15 02:19 | Outpatient (CLI) | payer MEDICARE, MEDICAID, SELFPAY ==
[2024-11-15 14:23] LABS: Abs Immature Grans 0.02 10^3/uL (0.0-0.06); Absolute Basophil Count 0.05 10^3/uL (0.0-0.2); Absolute Eosinophil Count 0.11 10^3/uL (0.0-0.7); Absolute Lymphocyte Count 1.58 10^3/uL (1.2-3.4); Absolute Monocyte Count 0.62 10^3/uL (0.1-0.8); Absolute Neutrophil Count 4.45 10^3/uL (1.2-6.7); Basophils % 0.7 %; Eosinophils % 1.6 %; HCT 44.5 % (36.0-46.0); Immature Grans % 0.3 %; Lymphocytes % 23.1 %; MCH 30.5 pg (27.0-33.0); MCHC 33.7 % (32.0-36.0); MCV 91 fL (80-95); Monocytes % 9.1 %; Neutrophils % 65.2 %; Platelet Count 236 10^3/uL (130-400); RBC 4.91 10^6/uL (3.93-5.22); RDW 12.2 % (11.7-14.6); RDW-SD 40.2 fL; WBC 6.83 10^3/uL (4.4-10.8)
[2024-11-15 14:44] LABS: Hemoglobin A1C 5.9 % (<5.7)
[2024-11-15 15:40] LABS: VALPROIC ACID 58.8 ug/mL
== END 2024-11-15 02:20 | disposition home or self-care (01) ==
LOC: LBO 02:19
PROVIDERS: PCP Nurse Practitioner Adult Health; Visit Provider Psychiatry & Neurology Psychiatry
DX: E11.51 Type 2 diabetes mellitus with diabetic peripheral angiopathy without gangrene (principal); I70.209 Unspecified atherosclerosis of native arteries of extremities, unspecified extremity; Z79.899 Other long term (current) drug therapy
CPT/HCPCS: 36415; 80164; 83036; 85025

== ENCOUNTER → 2024-11-20 14:50 | Outpatient (BNVA) | payer MEDICARE, MEDICAID, SELFPAY | PROVIDERS: PCP Nurse Practitioner Adult Health; Referring Provider Nurse Practitioner Adult Health; Visit Provider Podiatrist | DX: N18.30 Chronic kidney disease, stage 3 unspecified (principal); E11.51 Type 2 diabetes mellitus with diabetic peripheral angiopathy without gangrene; I70.209 Unspecified atherosclerosis of native arteries of extremities, unspecified extremity; L84 Corns and callosities; L60.3 Nail dystrophy; M79.671 Pain in right foot; M79.672 Pain in left foot; R09.89 Other specified symptoms and signs involving the circulatory and respiratory systems; L65.9 Nonscarring hair loss, unspecified; R23.8 Other skin changes; B35.1 Tinea unguium; L60.8 Other nail disorders | CPT/HCPCS: 11056; 11721 ==

== ENCOUNTER 2024-11-29 14:00 | Outpatient (CLI) | payer MEDICARE, MEDICAID, SELFPAY ==
[2024-11-29 16:11] LABS: VALPROIC ACID 63.7 ug/mL
== END 2024-11-29 14:01 | disposition home or self-care (01) ==
LOC: LBO 14:03
PROVIDERS: PCP Nurse Practitioner Adult Health; Visit Provider Psychiatry & Neurology Psychiatry
DX: Z79.899 Other long term (current) drug therapy (principal)
CPT/HCPCS: 36415; 80164

== ENCOUNTER 2025-01-07 08:50 | Outpatient (CLI) | payer MEDICARE, MEDICAID, SELFPAY ==
[2025-01-07 14:42] LABS: ALT 33 U/L (14-59); AST 15 U/L (15-37); Albumin 3.1 g/dL (3.4-5.0); Alkaline Phosphatase 97 U/L (46-116); Anion Gap 8.2 mmol/L (3-11); BUN 21 mg/dL (7-18); Bilirubin, Total 0.3 mg/dL (0.2-1.0); CO2 27.8 mmol/L (21.0-32.0); Calcium 9.1 mg/dL (8.5-10.1); Chloride 105 mmol/L (98-107); Estimated GFR 62.91 (mL/min/1.73m2); Glucose 128 mg/dL (74-106); Sodium 141 mmol/L (136-145); Total Protein 6.9 g/dL (6.4-8.2)
[2025-01-07 15:27] LABS: VALPROIC ACID 75.9 ug/mL
[2025-01-07 15:28] LABS: Lithium < 0.2 mmol/L (0.6-1.2)
== END 2025-01-07 08:51 | disposition home or self-care (01) ==
PROVIDERS: PCP Nurse Practitioner Adult Health; Visit Provider Psychiatry & Neurology Psychiatry
DX: Z79.899 Other long term (current) drug therapy (principal)
CPT/HCPCS: 36415; 80053; 80164; 80178

== ENCOUNTER → 2025-01-29 15:58 | Outpatient (BNVA) | payer MEDICARE, MEDICAID, SELFPAY | PROVIDERS: PCP Nurse Practitioner Adult Health; Visit Provider Nurse Practitioner Gerontology | DX: N39.41 Urge incontinence (principal); N32.81 Overactive bladder | CPT/HCPCS: 99213; 99214 ==

== ENCOUNTER → 2025-02-05 15:02 | Outpatient (BNVA) | payer MEDICARE, MEDICAID, SELFPAY | PROVIDERS: PCP Nurse Practitioner Adult Health; Referring Provider Nurse Practitioner Adult Health; Visit Provider Podiatrist | DX: N18.30 Chronic kidney disease, stage 3 unspecified (principal); E11.51 Type 2 diabetes mellitus with diabetic peripheral angiopathy without gangrene; I70.209 Unspecified atherosclerosis of native arteries of extremities, unspecified extremity; L84 Corns and callosities; L60.3 Nail dystrophy; M79.671 Pain in right foot; M79.672 Pain in left foot; L65.9 Nonscarring hair loss, unspecified; L85.8 Other specified epidermal thickening; R23.8 Other skin changes | CPT/HCPCS: 11056; 11721 ==

== ENCOUNTER 2025-03-11 13:20 | Outpatient (CLI) | payer MEDICARE, MEDICAID, SELFPAY ==
[2025-03-11 16:17] LABS: Hemoglobin A1C 6.1 % (<5.7)
[2025-03-14 11:59] LABS: Lipoprotein (a) 234 nmol/L (<75)
== END 2025-03-11 13:21 | disposition home or self-care (01) ==
LOC: LBO 13:21
PROVIDERS: PCP Nurse Practitioner Adult Health; Visit Provider Nurse Practitioner Adult Health
DX: E11.9 Type 2 diabetes mellitus without complications (principal); Z13.6 Encounter for screening for cardiovascular disorders
CPT/HCPCS: 36415; 83695; 83036

== ENCOUNTER 2025-03-24 10:56 | Outpatient (CLI) | payer MEDICARE, MEDICAID, SELFPAY ==
[2025-03-24 11:32] LABS: Calculated LDL 62 mg/dL (<100); Cholesterol 134 mg/dL (<200); HDL Cholesterol 53 mg/dL (>or=50); Triglyceride 99 mg/dL (<150)
[2025-03-26 12:10] LABS: Lipoprotein (a) 206 nmol/L (<75)
== END 2025-03-24 10:57 | disposition home or self-care (01) ==
LOC: LBO 10:56
PROVIDERS: PCP Nurse Practitioner Adult Health; Visit Provider Nurse Practitioner Adult Health
DX: E78.41 Elevated Lipoprotein(a) (principal); E11.9 Type 2 diabetes mellitus without complications
CPT/HCPCS: 36415; 80061; 83695

== ENCOUNTER 2025-05-19 14:45 | Outpatient (CLI) | payer MEDICARE, MEDICAID, SELFPAY ==
[2025-05-23 16:01] LABS: Apolipoprotein B, Serum 71 mg/dL (48-124); Beta VLDL Cholesterol Not Detected mg/dL (<15); Beta VLDL Triglycerides Not Detected mg/dL (<15); Cholesterol, Total, CDC 146 mg/dL; Chylomicron Cholesterol Not Detected; Chylomicron Triglycerides Not Detected; HDL Cholesterol, CDC 41 mg/dL (>=50); LpX Not detected; Triglycerides, CDC 132 mg/dL; VLDL Triglycerides 77 mg/dL (<120)
== END 2025-05-19 14:46 | disposition home or self-care (01) ==
LOC: LBO 14:46
PROVIDERS: PCP Nurse Practitioner Adult Health; Visit Provider Nurse Practitioner Adult Health
DX: E78.41 Elevated Lipoprotein(a) (principal); E11.51 Type 2 diabetes mellitus with diabetic peripheral angiopathy without gangrene; I70.209 Unspecified atherosclerosis of native arteries of extremities, unspecified extremity; E11.9 Type 2 diabetes mellitus without complications
CPT/HCPCS: 36415; 80061; 83695; 82172; 82664

== ENCOUNTER 2025-05-20 13:42 | Emergency (ER) | payer MEDICARE, MEDICAID, SELFPAY ==
[2025-05-20 14:02] VITALS: BP 122/98; PULSE 74; RESP 16; TEMP 37.7; O2SAT 91
[2025-05-20 15:25] VITALS: BP 139/74; PULSE 94; RESP 18; TEMP 36.8; O2SAT 94
--- NOTE | 2025-05-20 15:50 | ED.GENADUL_ITS ---
Discharge Plan Disposition Patient Disposition: Home Condition: Stable Discharge Details Clinical Impression: UTI (urinary tract infection) Primary Care Provider: Jane Hector ED Provider: Regi Domingo Home Meds and New Rx's Prescriptions: New cephalexin 500 mg capsule 500 mg PO BID 10 Days Qty: 20 0RF Rx Instructions: Please take the antibiotic by mouth twice daily for 10 days Continued vilazodone 20 mg tablet 20 mg PO DAILY multivitamin Tablet 1 tab PO DAILY cranberry extract 250 mg capsule 250 mg PO DAILY PRN Rx Instructions: administer with a meal vitamin B complex Tablet 1 tab PO DAILY Probiotic 3 billion cell capsule 3,000 mmu cells PO DAILY PRN Rx Instructions: administer with a meal trazodone 100 mg tablet 100 - 300 mg PO QHS PRN (Reason: sleep) Qty: 100 0RF Rx Instructions: Sleep difficulty albuterol sulfate [Ventolin HFA] 90 mcg/actuation HFA aerosol inhaler 1 puff IH Q4H PRN (Reason: shortness of breath or wheezing) Qty: 8.5 6RF estradiol 0.01 % (0.1 mg/gram) cream 0.25 g vaginal DAILY Qty: 42.5 2RF Rx Instructions: Massage pea-sized amount around vaginal opening twice weekly (DME) underpads 30 X 36 pad See Rx Instructions .Route Qty: 200 11RF Rx Instructions: Please dispense maximum absorbency underpads. 200 per refill BLISTER PAKS GENOA PO Mounjaro 10 mg/0.5 mL pen injector 15 mg subcut QWEEK Rx Instructions: Inject 10mg subcutaneously once a week--[facility] 03/08/24 levothyroxine 150 mcg tablet See Rx Instructions .ROUTE .COMPLEX Qty: 28 11RF Dose Instruction: TAKE 1 TABLET BY MOUTH DAILY Rx Instructions: TAKE 1 TABLET BY MOUTH DAILY omega-3 fatty acids-fish oil 300-1,000 mg capsule See Rx Instructions .ROUTE .COMPLEX Qty: 28 11RF Dose Instruction: TAKE 1 CAPSULE BY MOUTH DAILY Rx Instructions: TAKE 1 CAPSULE BY MOUTH DAILY naltrexone 50 mg tablet 50 mg PO BID Rx Instructions: Increase [facility] 10/04/24 montelukast 10 mg tablet See Rx Instructions .ROUTE .COMPLEX Qty: 28 11RF Dose Instruction: TAKE 1 TABLET BY MOUTH DAILY Rx Instructions: TAKE 1 TABLET BY MOUTH DAILY lisinopril 20 mg tablet See Rx Instructions .ROUTE .COMPLEX Qty: 28 6RF Dose Instruction: TAKE 1 TABLET BY MOUTH DAILY Rx Instructions: TAKE 1 TABLET BY MOUTH DAILY armodafinil [Nuvigil] 250 mg tablet 250 mg PO QAM lithium carbonate 150 mg capsule 150 mg PO DAILY No Action ondansetron HCl 4 mg tablet 4 mg PO Q8H PRN (Reason: nausea and vomiting) Qty: 30 0RF Discharge Instructions Instructions: Diverticulosis, Urinary Tract Infection, Adult ED Additional Instructions: CT shows that you have a thickened bladder wall which is consistent with urinary tract infection. Your urine also shows evidence of this. No bowel obstruction, you do have evidence of something called diverticulosis however no bowel infection or inflammation at this time. Please take the antibiotic twice daily with yogurt or probiotic as directed. You were given the first dose here today. Follow up with primary care provider in 3-5 days. Return to ED sooner if any worsening fever over 100.8, vomiting unable to keep down the medications, or concerns. Please take Tylenol or Ibuprofen with food every 4-6 hours as needed for pain and swelling. Thank you for allowing us to care for you today. Referrals: Jane Hector NP [Primary Care Provider, Medicine] - 1 week Referral Note: ER follow up call for an appointment Clinical Impression: UTI (urinary tract infection) Discharge Data Discharge Date/Time-TO BE ENTERED AT DEPARTURE: 05/20/25 18:58 HPI General Mode of arrival: ambulatory . Date/Time Provider Initiated Documentation: 05/20/25 14:12 . Limitations to Documentation: no limitations . Information obtained by: patient, RN notes reviewed and old records reviewed . HPI Narrative: 64-year-old female presents to the ER with a chief complaint of lower abdominal pain that began approximately 4 days ago. Associated with nausea and diarrhea. She reports that she was sent here by her PCP office to rule out bowel obstruction. She denies any fever or chills denies any vomiting. Does have a history of cholecystectomy D&C, major depression disorder, chronic kidney disease, resulted 3, 2 diabetes, obstructive sleep apnea, hypertension, hypothyroidism, obesity. Related Data Home Medications ?Medication ?Instructions ?Recorded ?Confirmed vilazodone 20 mg tablet 20 mg PO DAILY 08/26/1904/23 multivitamin 1 tab PO DAILY 03/03/2204/23 vitamin B complex 1 tab PO DAILY 05/19/2204/23 underpads 30 X 36 #200 ea 09/16/22 05/20/25 BLISTER PAKS GENOA PO 02/24/23 03/20/25 tirzepatide 10 mg/0.5 mL 15 mg subcut QWEEK 06/26/24 05/20/25 subcutaneous pen injector (Leigh) levothyroxine 150 mcg tablet See Rx Instructions .Rout e 08/28/24 05/20/25 .COMPLEX #28 tabs omega-3 fatty acids-fish oil 300 See Rx Instructions . Route 08/28/24 05/20/25 mg-1,000 mg capsule .COMPLEX #28 caps naltrexone 50 mg tablet 50 mg PO BID 10/07/24 montelukast 10 mg tablet See Rx Instructions .Route 0 12/23/24 05/20/25 .COMPLEX #28 tabs albuterol sulfate 90 mcg/actuation 1 puff inhalation Q 4H PRN 01/13/25 05/20/25 aerosol inhaler (Ventolin HFA) shortness of breath or wheezing #8.5 grams cranberry extract 250 mg capsule 250 mg PO DAILY PRN 0 01/13/25 05/20/25 estradiol 0.01% (0.1 mg/gram) 0.25 g vaginal DAILY #42 .5 grams 01/13/25 05/20/25 vaginal cream lactobacillus combination no.4 3 3,000 mmu cells PO DA ABDELRAHMAN PRN 01/13/25 05/20/25 billion cell capsule (Probiotic) lisinopril 20 mg tablet See Rx Instructions .Route 0 02/10/25 05/20/25 .COMPLEX #28 tabs trazodone 100 mg tablet 100 - 300 mg (1 - 3 x 100 mg ) PO 03/12/25 05/20/25 QHS PRN sleep #100 tabs armodafinil 250 mg tablet (Nuvigil) 250 mg PO QAM 07/1705/20/25 cephalexin 500 mg capsule 500 mg PO BID UTI 10 days #2 0 caps 05/20/25 lithium carbonate 150 mg capsule 150 mg PO DAILY 05/2005/20/25 ondansetron HCl 4 mg tablet 4 mg PO Q8H PRN nausea and 05/21/25 vomiting #30 tabs Previous Rx's ?Medication ?Instructions ?Recorded underpads 30 X 36 #200 ea 09/16/22 levothyroxine 150 mcg tablet See Rx Instructions .Rout e 08/28/24 .COMPLEX #28 tabs omega-3 fatty acids-fish oil 300 See Rx Instructions . Route 08/28/24 mg-1,000 mg capsule .COMPLEX #28 caps montelukast 10 mg tablet See Rx Instructions .Route 0 12/23/24 .COMPLEX #28 tabs albuterol sulfate 90 mcg/actuation 1 puff inhalation Q 4H PRN 01/13/25 aerosol inhaler (Ventolin HFA) shortness of breath or wheezing #8.5 grams estradiol 0.01% (0.1 mg/gram) 0.25 g vaginal DAILY #42 .5 grams 01/13/25 vaginal cream lisinopril 20 mg tablet See Rx Instructions .Route 0 02/10/25 .COMPLEX #28 tabs trazodone 100 mg tablet 100 - 300 mg (1 - 3 x 100 mg ) PO 03/12/25 QHS PRN sleep #100 tabs cephalexin 500 mg capsule 500 mg PO BID UTI 10 days #2 0 caps 05/20/25 ondansetron HCl 4 mg tablet 4 mg PO Q8H PRN nausea and 05/21/25 vomiting #30 tabs Allergies Allergy/AdvReac Type Severity Reaction Status Date / Time environmental AdvReac Mild environment Uncoded 05/20/25 14:09 al General Stated Complaint: Abd Prob JYOTSNA: 3 Review of Systems All systems reviewed & are unremarkable except as noted in HPI and below Cardiovascular Cardiovascular: Denies chest pain and Denies dyspnea Respiratory Respiratory: Denies dyspnea Gastrointestinal Gastrointestinal: Reports as per HPI, Reports abdominal pain, Denies change in bowel habits, Reports diarrhea, Reports nausea and Denies vomiting Exam Narrative Exam Narrative: Constitutional: Alert and oriented x3. Appears stated age. Obese body habitus. Smells strongly of urine. Head: Normocephalic, no trauma. Eyes: Pupils PERRL, Red reflex noted, EOM's intact. Eyelids symmetrical without lesions, discharge, or swelling. Chest: RRR, Normal S1, S2, distal pulses intact. Resp: Lungs clear to auscultation bilaterally, no wheezes, rales, or rhonchi. Abdomen: Soft, non-distended, lower abdominal pain. Musculoskeletal: Unable to assess gait, moves all 4 extremities without difficulty. Skin: No suspicious rashes or lesions. Capillary refill less than 2 sec. Neurologic: Cranial nerves II-XII intact. Alert and oriented x 3. Motor: No deficits noted. Sensory: Intact bilaterally all 4 extremities. Hematologic/Lymphatic: No ecchymosis, no lymphadenopathy. Course Vital Signs Vital signs: Vital Signs Temperature 37.7 C H 05/20/25 14:02 Pulse 74 05/20/25 14:02 Respiratory Rate 16 05/20/25 14:02 Blood Pressure 122/98 H 05/20/25 14:02 Pulse Oximetry 91 L 05/20/25 14:02 Temperature 36.8 C 05/20/25 15:25 Temperature Source Temporal Artery Scan 05/20/25 15:25 Pulse 94 H 05/20/25 15:25 Respiratory Rate 18 05/20/25 15:25 Blood Pressure 139/74 05/20/25 15:25 Blood Pressure Position Sitting 05/20/25 14:02 Pulse Oximetry 94 05/20/25 15:25 Oxygen Delivery Method Room Air 05/20/25 14:02 Oxygen Flow Rate 0 05/20/25 14:02 Medical Decision Making 64-year-old female presents to the ER with a chief complaint of lower abdominal pain that began approximately 4 days ago. Associated with nausea and diarrhea. She reports that she was sent here by her PCP office to rule out bowel obstruction. She denies any fever or chills denies any vomiting. Does have a history of cholecystectomy D&C, major depression disorder, chronic kidney disease, resulted 3, 2 diabetes, obstructive sleep apnea, hypertension, hypothyroidism, obesity. Workup ordered prior to my evaluation including CBC CMP troponin lipase urinalysis and 1 L IV normal saline. CT abdomen pelvis with IV ordered. Labs show no leukocytosis, CMP within normal limits, urinalysis shows small blood, positive nitrites moderate leukocytes 3-5 RBCs 5-10 WBCs many bacteria. Will send urine for a forced culture. Will start on cephalexin 500 mg twice daily for the next 10 days. Patient does smell strongly of urine and this is consistent with clinical picture. CT shows no obstruction, diverticulosis no evidence of diverticulitis, thickened bladder wall consistent with cystitis. Will treat for UTI. Prescription sent for cephalexin. Discussed CT results and lab results with patient who verbalized understanding. Discussed return instructions and follow-up care she verbalized understanding. All her questions were answered to the best my ability. Patient was ambulatory upon discharge from the department.. She remained hemodynamically stable. This text was generated using [employer] system, please disregard any oddities of phrase or misspellings. The Medical Records Medical records reviewed: Yes I reviewed the patient's medical records. Lab Data Lab results reviewed: Yes I reviewed the patient's lab results. Labs: 05/20/25 18:07 Urine - Clean Catch Urine Culture - Pending Laboratory Tests Range/Units 05/20/25 05/20/25 05/20/25 15:13 16:03 17:13 WBC (4.4-10.8) 10^3/uL 9.22 RBC (3.93-5.22) 10^6/uL 4.97 Hgb (11.2-15.7) g/dL 14.5 Hct (36.0-46.0) % 44.8 MCV (80-95) fL 90 MCH (27.0-33.0) pg 29.2 MCHC (32.0-36.0) % 32.4 RDW (11.7-14.6) % 12.4 Plt Count (130-400) 10^3/uL 254 MPV (8.0-11.0) fL 7.9 L Immature Gran % % 0.2 Neutrophils % % 65.2 Lymphocytes % % 24.1 Monocytes % % 8.4 Eosinophils % % 1.2 Basophils % % 0.9 Nucleated RBC % (0.0-0.3) % 0.0 Absolute Neutrophils (1.2-6.7) 10^3/uL 6.02 Absolute Lymphocytes (1.2-3.4) 10^3/uL 2.22 Absolute Monocytes (0.1-0.8) 10^3/uL 0.77 Absolute Eosinophils (0.0-0.7) 10^3/uL 0.11 Absolute Basophils (0.0-0.2) 10^3/uL 0.08 Sodium (136-145) mmol/L 139 Potassium (3.5-5.1) mmol/L 4.8 Chloride (98-107) mmol/L 101 Carbon Dioxide (21.0-32.0) mmol/L 31.0 Anion Gap (3-11) mmol/L 7.0 BUN (7-18) mg/dL 18 Creatinine (0.55-1.02) mg/dL 0.8 Est GFR (CKD-EPI 2020) (mL/min/1.73m2) 82.23 Glucose (74-106) mg/dL 94 Calcium (8.5-10.1) mg/dL 9.7 Magnesium (1.8-2.4) mg/dL 2.0 Total Bilirubin (0.2-1.0) mg/dL 0.2 AST (15-37) U/L 22 ALT (14-59) U/L 29 Alkaline Phosphatase (46-116) U/L 85 Troponin I Cancelled 4 Cancelled Total Protein (6.4-8.2) g/dL 7.7 Albumin (3.4-5.0) g/dL 3.5 Lipase (<78) U/L 53 Urine Color (Yellow) Urine Clarity (Clear) Urine pH (5-8) Ur Specific Hanna (1.005-1.025) Urine Protein (Neg-Trace) mg/dL Urine Ketones (Negative) mg/dL Urine Blood (Negative) Urine Nitrite (Negative) Urine Bilirubin (Negative) Urine Urobilinogen (Up to 0.2) mg/dL Ur Leukocyte Esterase (Negative) Urine RBC (0-2) HPF Urine WBC (0-5) HPF Ur Epithelial Cells (Negative) HPF Urine Crystals (Negative) HPF Urine Bacteria (Negative) HPF Urine Casts (Negative) LPF Urine Mucus (Negative) Ur Culture Indicated? Urine Glucose (Negative) mg/dL Range/Units 05/20/25 17:25 WBC (4.4-10.8) 10^3/uL RBC (3.93-5.22) 10^6/uL Hgb (11.2-15.7) g/dL Hct (36.0-46.0) % MCV (80-95) fL MCH (27.0-33.0) pg MCHC (32.0-36.0) % RDW (11.7-14.6) % Plt Count (130-400) 10^3/uL MPV (8.0-11.0) fL Immature Gran % % Neutrophils % % Lymphocytes % % Monocytes % % Eosinophils % % Basophils % % Nucleated RBC % (0.0-0.3) % Absolute Neutrophils (1.2-6.7) 10^3/uL Absolute Lymphocytes (1.2-3.4) 10^3/uL Absolute Monocytes (0.1-0.8) 10^3/uL Absolute Eosinophils (0.0-0.7) 10^3/uL Absolute Basophils (0.0-0.2) 10^3/uL Sodium (136-145) mmol/L Potassium (3.5-5.1) mmol/L Chloride (98-107) mmol/L Carbon Dioxide (21.0-32.0) mmol/L Anion Gap (3-11) mmol/L BUN (7-18) mg/dL Creatinine (0.55-1.02) mg/dL Est GFR (CKD-EPI 2020) (mL/min/1.73m2) Glucose (74-106) mg/dL Calcium (8.5-10.1) mg/dL Magnesium (1.8-2.4) mg/dL Total Bilirubin (0.2-1.0) mg/dL AST (15-37) U/L ALT (14-59) U/L Alkaline Phosphatase (46-116) U/L Troponin I Total Protein (6.4-8.2) g/dL Albumin (3.4-5.0) g/dL Lipase (<78) U/L Urine Color (Yellow) Yellow Urine Clarity (Clear) Clear Urine pH (5-8) 7.5 Ur Specific Hanna (1.005-1.025) 1.015 Urine Protein (Neg-Trace) mg/dL Negative Urine Ketones (Negative) mg/dL Negative Urine Blood (Negative) Small H Urine Nitrite (Negative) Positive H Urine Bilirubin (Negative) Negative Urine Urobilinogen (Up to 0.2) mg/dL 0.2 Ur Leukocyte Esterase (Negative) Moderate H Urine RBC (0-2) HPF 3-5 H Urine WBC (0-5) HPF 5-10 Ur Epithelial Cells (Negative) HPF Few Urine Crystals (Negative) HPF Negative Urine Bacteria (Negative) HPF Many Urine Casts (Negative) LPF Negative Urine Mucus (Negative) Negative Ur Culture Indicated? No Urine Glucose (Negative) mg/dL Negative PFSH All Active Problems (Updated 05/20/25 @ 18:10 by Regi Domingo NP) UTI (urinary tract infection) (Acute) Elevated Lp(a) (Acute ~02/2025) Sleep related hypoxia (Acute) Sleep 11/2024 polysomnogram Daytime sleepiness (Acute) 02/25/25 Sleep Medicine GERD without esophagitis (Acute) [facility]-10/06/23-GERD,Unspecified whether esophagitis present Scalp lesion (Acute) Blue nevus Corns and callosities (Acute) Diabetes mellitus type 2 with atherosclerosis of arteries of extremities (Acute) Mixed anxiety and depressive disorder (Acute) Essential hypertension (Chronic) Hypothyroidism (Chronic) CIARA (obstructive sleep apnea) (Chronic) 12/12/24 Polysomnogram. 02/25/25 f/u Sleep Medicine, on CPAP Chronic insomnia (Chronic) Internal derangement of right knee (Chronic) Internal derangement of left knee (Chronic) Type 2 diabetes mellitus (Chronic) 01/2021 labs: 10-year ASCVD risk ~5.7% --> no aspirin indicated Bilateral primary osteoarthritis of knee (Chronic) Autism spectrum disorder (Chronic) December 2021 [facility] neuropsychological evaluation PTSD (post-traumatic stress disorder) (Acute) December 2021 [facility] neuropsychological evaluation CKD (chronic kidney disease) (Chronic) Improved 09/2022, over Nov 2021.. d/w pt (tel), 10/20, ik. Class 3 severe obesity with serious comorbidity and body mass index (BMI) of 50.0 to 59.9 in adult (Acute) 04/15/2024 - Now BMI 45.0-49.9 w/[facility] Fatigue (Acute) Medical History Family history of breast cancer Nail dystrophy Presence of pessary #2 incontinence dish pessary fitted May 2022 Removed 03/22/23 to trial without Sebaceous cyst of labia Anesthesia complication Difficult spinal. Two providers attempted x6 with and without ultrasound. Unable to access space. Patient was refusing any other plan until inability to obtain access. Overactive bladder Thickened endometrium 10/2021. Incidental finding on pelvic ultrasound for evaluation of pelvic pain. D&C: Proliferative endometrium. Plan Rx oral medroxyprogesterone>Norethindrone. 06/2023. EMBx: endometrial polyp. Stop Norethindrone. Incontinence Blind right eye Major depressive disorder [facility] Lumbosacral spondylosis without myelopathy Lumbar radiculitis Surgical History Hx of esophagogastroduodenoscopy (03/25/25) [facility]-Dr Martell multiple gastric polyps biopsied; 04/06/25-letter from Dr. Martell to Jes states bx's are fundic gland polyps. not cancerous and no further evaluation or treatment is necessary for them.no signs of infection,ulcers or hiatal hernia History of D&C D&C performed after incidental finding of thickened endometrial stripe on pelvic imaging. Path: Proliferative endometrium History of nasal surgery hx of nasal turbinate surgery S/P tonsillectomy and adenoidectomy S/P cholecystectomy eye surgery Family History Mother , age 63 Diabetes CKD d/t DM Type 2 Hypertension Stroke Father , 74 Alcohol abuse Depression Brother Hypertension Alcohol abuse Sleep apnea Substance abuse Brother No problems noted. Paternal Grandfather , age 65 Alcohol abuse Paternal Grandmother Dementia Alzheimers Maternal Grandfather , age 79 No problems noted. Maternal Grandfather , Age 75 No problems noted. Maternal Cousin Breast cancer Social History Smoking/Tobacco Use Status: Never Smoking risk assessment performed?: Yes Alcohol Intake: never Drug use: Never Substance use type: does not use Caregiver/Support person: No Housing: apartment Communication Needs: None current occupation: disabled Pets and animals: No What is your relationship status?: never How often do you talk on the phone with friends or family?: once per week How often do you get together with friends or relatives?: never Panel score (0-1 are the most socially isolated patients): 0 What type of physical activity do you participate in: none Seatbelt use: always Drive intox or ride w/intox warehouse driver: No Water heater temp set <120 deg: Yes Working smoke detector in home: Yes Carbon monox detector in home: Yes Do you feel safe at home: Yes Do you feel safe in your relationship?: Yes History History Para 0 Hx # Term Pregnancies Multiple births Hx # Pregnancies Ectopic pregnancies AB induced Hx Number of Living Children AB spontaneous
[2025-05-20 16:11] LABS: Abs Immature Grans 0.02 10^3/uL (0.0-0.06); HCT 44.8 % (36.0-46.0); HGB 14.5 g/dL (11.2-15.7); Immature Grans % 0.2 %; MCH 29.2 pg (27.0-33.0); MCHC 32.4 % (32.0-36.0); MCV 90 fL (80-95); MPV 7.9 fL (8.0-11.0); Platelet Count 254 10^3/uL (130-400); RBC 4.97 10^6/uL (3.93-5.22); RDW 12.4 % (11.7-14.6); RDW-SD 40.5 fL; WBC 9.22 10^3/uL (4.4-10.8)
[2025-05-20 16:33] LABS: ALT 29 U/L (14-59); AST 22 U/L (15-37); Albumin 3.5 g/dL (3.4-5.0); Alkaline Phosphatase 85 U/L (46-116); Anion Gap 7.0 mmol/L (3-11); BUN 18 mg/dL (7-18); Bilirubin, Total 0.2 mg/dL (0.2-1.0); CO2 31.0 mmol/L (21.0-32.0); Calcium 9.7 mg/dL (8.5-10.1); Chloride 101 mmol/L (98-107); Estimated GFR 82.23 (mL/min/1.73m2); Glucose 94 mg/dL (74-106); Lipase 53 U/L (<78); Magnesium 2.0 mg/dL (1.8-2.4); Potassium 4.8 mmol/L (3.5-5.1); Sodium 139 mmol/L (136-145); Total Protein 7.7 g/dL (6.4-8.2); Troponin I 4 ng/L (<or=51)
[2025-05-20] MEDS: Ondansetron O.D.T. 4 MG TABEF PO (16:41)
[2025-05-20] MEDS: Normal Saline - Diluent 50 ML VIAL IJ (16:55)
--- NOTE | 2025-05-20 17:28 | DI.CT_ITS ---
Exam(s) CT ABDOMEN PELVIS W EXAM: CT ABDOMEN PELVIS W CLINICAL HISTORY: Lower abdominal pain, nausea and diarrhea.. TECHNIQUE: Imaging Protocol: Axial computed tomography images with coronal and sagittal reformatted images were created and reviewed CONTRAST MATERIAL: Intravenous: Omnipaque 350 Contrast volume:100 ml Oral: no COMPARISON: No exams were available for comparison FINDINGS: ABDOMEN and PELVIS: Lung Bases: No acute findings. Liver: Normal density. No suspicious mass. Gallbladder and biliary tract: Cholecystectomy. No biliary dilation. Pancreas: Normal density. No abnormal calcifications or inflammatory process. No evidence of mass. Spleen: Normal. Kidneys: Normal size, contour and axis. No radiodense stones. No obstructive uropathy. No suspicious masses seen. Adrenal glands: No masses seen. Vasculature: Abdominal aorta non-dilated. Soft tissues: Unremarkable. Bladder: No gross wall thickening. No calculi.No focal mass. Bowel: No obstruction. Diverticulosis noted in the descending and sigmoid colon, more concentrated in in the sigmoid region. No diverticulitis. The cecum is located in the left mid abdomen. The appendix is normal. Peritoneal cavity: No ascites. No focal collection. No mesenteric inflammatory response. No free air. Bones: Degenerative disc changes and facet degenerative changes at L4-5 and L5- S1. Spondylolisthesis at L4-5. Reproductive organs: Unremarkable. Lymph nodes: No pathologically enlarged lymph nodes. IMPRESSION:: Mild wall thickening of the bladder. Findings could indicate cystitis. Clinical correlation recommended. Diverticulosis of the descending and sigmoid colon. No evidence of diverticulitis. RADIATION DOSE DELIVERED: Total DLP DATA REPOSITORY: All CT scans at this facility are submitted to the National Radiology Data Registry (NRDR) Dose Index Registry (DIR) with the [employer] (ACR). RADIATION OPTIMIZATION: All CT scans at this facility use at least one of these dose optimization techniques: automated exposure control; mA and/or kV adjustment per patient size (includes targeted exams where dose is matched to clinical indication); or iterative reconstruction.
[2025-05-20 17:37] LABS: Glucose Negative (Negative)
[2025-05-20 18:04] LABS: C & S Indicated? No
[2025-05-20] MEDS: Cephalexin 500 MG CAP PO (18:45)
[2025-05-20 18:58] VITALS: BP 142/69; PULSE 78; RESP 18; O2SAT 99
== END 2025-05-20 18:58 | disposition home or self-care (01) ==
PROVIDERS: Emergency Medicine Emergency Medical Services; Emergency Provider Registered Nurse Emergency; PCP Nurse Practitioner Adult Health
DX: N39.0 Urinary tract infection, site not specified (principal); K59.00 Constipation, unspecified
CPT/HCPCS: 99285; 99283; 36415; 80053; 83690; 74177; 81003; 81015; 83735; 84484; 85025; 87086

== ENCOUNTER → 2025-05-26 14:54 | Outpatient (BNVA) | payer MEDICARE, MEDICAID, SELFPAY | PROVIDERS: PCP Nurse Practitioner Adult Health; Referring Provider Nurse Practitioner Adult Health; Visit Provider Podiatrist | DX: L60.3 Nail dystrophy (principal); M79.671 Pain in right foot; M79.672 Pain in left foot; E11.51 Type 2 diabetes mellitus with diabetic peripheral angiopathy without gangrene; E11.22 Type 2 diabetes mellitus with diabetic chronic kidney disease; N18.30 Chronic kidney disease, stage 3 unspecified; L84 Corns and callosities; I70.209 Unspecified atherosclerosis of native arteries of extremities, unspecified extremity; R09.89 Other specified symptoms and signs involving the circulatory and respiratory systems; L65.9 Nonscarring hair loss, unspecified; R23.8 Other skin changes; L60.8 Other nail disorders; L85.8 Other specified epidermal thickening | CPT/HCPCS: 11056; 11721 ==

== ENCOUNTER 2025-06-04 12:48 | Outpatient (CLI) | payer MEDICARE, MEDICAID, SELFPAY ==
--- NOTE | 2025-06-04 08:00 | DI.MAMMO_ITS ---
Exam(s) MAMMO SCREENING EXAM: MAMMO SCREENING CLINICAL HISTORY: screening, Z12.39 TECHNIQUE: Bilateral full field digital CC and MLO mammographic images were obtained with 3D tomosynthesis and utilizing computer aided detection (CAD). COMPARISON: Comparison is made with prior examinations. FINDINGS: Masses/Architectural Distortion: No suspicious masses or areas of architectural distortion are present. Microcalcifications: No suspicious pleomorphic-type are seen. Skin Thickening/Nipple Retraction: None. IMPRESSION: 1. No significant interval change with no specific features of malignancy noted. 2. Unless there is more urgent need, screening mammography is recommended, as per [employer] guidelines. BI-RADS Category 1 - Negative Breast Density - Category A - The breast are almost entirely fatty. Breast density Category C or D implies that the patient has dense breast tissue. Dense breast tissue can make it harder to find cancer on a mammogram. Dense breast tissue is also associated with an increased risk of breast cancer. This information about the result of the mammogram report was provided to the patient to raise their awareness. Use this report when you speak with the patient about their risks for breast cancer, which includes their family history. At that time, you may recommend additional screening tests (Ultrasound or MRI) as these tests may add significant information. A negative radiographic report should not delay biopsy if a dominant or clinically suspicious mass is present. Up to ten percent of cancers are not identified on mammography. A negative report may reinforce clinical impression. Adenosis and dense breasts may obscure an underlying neoplasm. False positive reports average 6 to 10%. Patient will receive a letter notifying them of these results.
== END 2025-06-04 13:08 ==
LOC: DI 06-19 12:52
PROVIDERS: PCP Nurse Practitioner Adult Health; Visit Provider Nurse Practitioner Adult Health
DX: Z12.31 Encounter for screening mammogram for malignant neoplasm of breast (principal); R92.313 Mammographic fatty tissue density, bilateral breasts
CPT/HCPCS: 77063; 77067

== ENCOUNTER → 2025-09-02 13:59 | Outpatient (BNVA) | payer MEDICARE, MEDICAID, SELFPAY | PROVIDERS: PCP Nurse Practitioner Adult Health; Referring Provider Nurse Practitioner Adult Health; Visit Provider Podiatrist | DX: E11.22 Type 2 diabetes mellitus with diabetic chronic kidney disease (principal); N18.30 Chronic kidney disease, stage 3 unspecified; E11.51 Type 2 diabetes mellitus with diabetic peripheral angiopathy without gangrene; I70.203 Unspecified atherosclerosis of native arteries of extremities, bilateral legs; L84 Corns and callosities; M79.671 Pain in right foot; M79.672 Pain in left foot; R09.89 Other specified symptoms and signs involving the circulatory and respiratory systems; L65.9 Nonscarring hair loss, unspecified; R23.4 Changes in skin texture; L60.3 Nail dystrophy; L60.8 Other nail disorders; L85.8 Other specified epidermal thickening | CPT/HCPCS: 11721 ==

== ENCOUNTER 2025-09-30 12:45 | Outpatient (CLI) | payer MEDICARE, MEDICAID, SELFPAY ==
[2025-09-30 14:45] LABS: Glucose Negative (Negative)
[2025-09-30 14:52] LABS: C & S Indicated? Yes; RBC 0-2 HPF (0-2); WBC >50 HPF (0-5)
[2025-09-30 15:07] LABS: Hemoglobin A1C 5.6 % (<5.7)
== END 2025-09-30 12:46 | disposition home or self-care (01) ==
LOC: LBO 12:45
PROVIDERS: Surgery; PCP Nurse Practitioner Adult Health; Visit Provider Nurse Practitioner Adult Health
DX: R30.0 Dysuria (principal); E11.9 Type 2 diabetes mellitus without complications
CPT/HCPCS: 36415; 87077; 81003; 81015; 83036; 87086; 87186

== ENCOUNTER → 2025-10-10 13:25 | Outpatient (CLI) | payer MEDICARE, MEDICAID, SELFPAY ==
--- NOTE | 2025-10-10 14:45 | DI.RAD_ITS ---
Exam(s) XR ABDOMEN FLAT UPRIGHT EXAM: 2D digital imaging was performed. CLINICAL HISTORY: Chronic Constipation/K59.09. COMPARISON: No exams were available for comparison TECHNIQUE: Supine and upright views of the abdomen were performed. FINDINGS: BOWEL GAS PATTERN: Nondistended.No free air. There is a moderate to increased quantity of stool. There the rectum appears relatively free of stool. CALCIFICATIONS: No urinary tract calcifications. OSSEOUS STRUCTURES: Normal for age. Visualized portions of chest: Unremarkable. Soft tissues: Surgical clips in the right upper quadrant IMPRESSION: 1. Nonobstructive bowel gas pattern. 2. Moderately increased quantity of stool, consistent with constipation. 3. No free air. DATA REPOSITORY: RADIATION DOSE DELIVERED:
== END ==
LOC: DI 13:25
PROVIDERS: PCP Nurse Practitioner Adult Health; Visit Provider Surgery
DX: K59.09 Other constipation (principal)
CPT/HCPCS: 74019